=== PATIENT | female | born 1955 | race African-American/Black ===

== ENCOUNTER 2023-07-21 15:49 | Emergency (ER) | payer MEDICARE ==
--- NOTE | 2023-07-21 16:54 | ED ---
Dizziness HPI - General Source: patient, RN notes reviewed Mode of arrival: EMS Limitations: no limitations <Avelina Leyva - Last Filed: 07/21/23 16:53> <Charlie Zimmerman - Last Filed: 07/22/23 01:28> - General Chief Complaint: Syncope Stated Complaint: cardiac issues Time Seen by Provider: 07/21/23 16:10 - History of Present Illness Initial Comments: Lito notethis 68-year-old female presents to the emergency department via EMS for chief complaint of hypotension. Patient states that she was seen at urgent care this afternoon for refill of her medications and she was found to have a low blood pressure. Patient denies dizziness, lightheadedness, blurry vision or double vision. (Avelina Leyva) Dictation was produced using [employer] dictation software. please excuse any grammatical, word or spelling errors. Chief Complaint: 68-year-old female went to her primary care doctor for m edication refills presents to the ER for hypotension History of Present Illness: Patient 60-year-old female she has past medical history of coronary artery bypass grafting. She went to a clinic office today for inquiry of her home medications. States that felt in her usual state of health. She states that they did some vital signs after she had walked really quickly. She was found to have a blood pressure systolic measuring around 60. She was told to come to the emergency department. Patient states that she feels fine does not have any complaints. Denies any pain or nausea. No recent illness. Denies any lightheadedness. Patient states that she feels at baseline currently. The ROS documented in this emergency department record has been reviewed and confirmed by me. Those systems with pertinent positive or negative responses have been documented in the HPI. All other systems are other negative and/or noncontributory. (Charlie Zimmerman) - Related Data Allergies Allergy/AdvReac Type Severity Reaction Status Date / Time No Known Allergies Allergy Verified 07/21/23 16:46 Review of Systems ROS Other: All systems not noted in ROS Statement are negative. <Avelina Leyva - Last Filed: 07/21/23 16:53> ROS Other: All systems not noted in ROS Statement are negative. <Charlie Zimmerman - Last Filed: 07/22/23 01:28> ROS Statement: Those systems with pertinent positive or pertinent negative responses have been documented in the HPI. Past Medical History Past Medical History: Atrial Fibrillation, Chest Pain / Angina History of Any Multi-Drug Resistant Organisms: None Reported Past Surgical History: No Surgical Hx Reported Past Psychological History: No Psychological Hx Reported Smoking Status: Former smoker Past Alcohol Use History: None Reported Past Drug Use History: None Reported <Avelina Leyva - Last Filed: 07/21/23 16:53> General Exam Limitations: no limitations <Avelina Leyva - Last Filed: 07/21/23 16:53> <Charlie Zimmerman - Last Filed: 07/22/23 01:28> - General Exam Comments Initial Comments: Visual Physical Exam Vital signs reviewed General: Well-appearing, nontoxic, no acute distress. Head: Normocephalic, atraumatic Eyes: PERRLA, EOMI ENT: Airway patent Chest: Nonlabored breathing Skin: No visual rash, normal skin tone Neuro: Alert and oriented 3 Musculoskeletal: No gross abnormalities (Avelina Leyva) PHYSICAL EXAM: General Impression: Alert and oriented x3, not in acute distress HEENT: Normocephalic atraumatic, extra-ocular movements intact, pupils equal and reactive to light bilaterally, mucous membranes moist. Cardiovascular: Heart regular rate and rhythm Chest: Able to complete full sentences, no retractions, no tachypnea Abdomen: abdomen soft, non-tender, non-distended, no organomegaly Musculoskeletal: Pulses present and equal in all extremities, no peripheral edema Motor: no focal deficits noted Neurological: CN II-XII grossly intact, no focal motor or sensory deficits noted Skin: Intact with no visualized rashes Psych: Normal affect and mood (Charlie Zimmerman) Course Vital Signs 07/21/23 07/21/23 07/22/23 16:41 23:42 00:00 Temperature 98 F Pulse Rate 71 68 72 Pulse Rate [ Sitting] Pulse Rate [ Standing] Pulse Rate [ Supine] Respiratory 16 18 18 Rate Blood Pressure 148/86 112/89 112/89 Blood Pressure [Sitting] Blood Pressure [Standing] Blood Pressure [Supine] O2 Sat by Pulse 96 96 96 Oximetry 07/22/23 07/22/23 07/22/23 00:05 00:10 00:30 Temperature Pulse Rate 70 61 75 Pulse Rate [ Sitting] Pulse Rate [ Standing] Pulse Rate [ Supine] Respiratory 18 18 16 Rate Blood Pressure 121/99 121/99 113/57 Blood Pressure [Sitting] Blood Pressure [Standing] Blood Pressure [Supine] O2 Sat by Pulse 95 96 96 Oximetry 07/22/23 07/22/23 00:55 01:00 Temperature Pulse Rate 72 Pulse Rate [ 75 Sitting] Pulse Rate [ 78 Standing] Pulse Rate [ 68 Supine] Respiratory 18 Rate Blood Pressure 119/87 Blood Pressure 121/99 [Sitting] Blood Pressure 108/88 [Standing] Blood Pressure 112/89 [Supine] O2 Sat by Pulse 96 Oximetry EKG Findings - EKG Comments: EKG Findings:: My EKG interpretation: Ventricular rate 71, sinus rhythm,. 193, QRS 150, QTc 508. No LA prolongation, no ST or T-wave changes noted. <Charlie Zimmerman - Last Filed: 07/22/23 01:28> Medical Decision Making <Avelina Leyva - Last Filed: 07/21/23 16:53> - Lab Data Result diagrams: 07/21/23 16:47 07/21/23 16:47 <Charlie Zimmerman - Last Filed: 07/22/23 01:28> - Medical Decision Making I completed the quick note portion of this chart signed Avelina Leyva PA-C (Avelina Leyva) Was pt. sent in by a medical professional or institution (PAUL Ramachandran, PURCHASING COORDINATOR, urgent care, hospital, or snf...) When possible be specific @ -No Did you speak to anyone other than the patient for history (EMS, parent, family, police, friend...)? What history was obtained from this source @ -No Did you review nursing and triage notes (agree or disagree)? Why? @ -I reviewed and agree with nursing and triage notes Were old charts reviewed (outside hosp., previous admission, EMS record, old EK G, old radiological studies, urgent care reports/EKG's, snf records)? Report findings @ -No old charts were reviewed Differential Diagnosis (chest pain, altered mental status, abdominal pain women, abdominal pain men, vaginal bleeding, musculoskeletal, weakness, fever, dyspnea, syncope, headache, dizziness, GI bleed, back pain, seizure, CVA, palpatations, mental health)? @ -Differential Weakness: Hypoglycemia, shock, sepsis, hyponatremia, anemia, infection, WI, ETOH, adverse medicine reaction, overdose, stroke, this is not meant to be an all-inclusive list. EKG interpreted by me (3pts min.). @ -See above X-rays interpreted by me (1pt min.). @ -Chest x-ray shows heart failure CT interpreted by me (1pt min.). @ -None done U/S interpreted by me (1pt. min.). @ -None done What testing was considered but not performed or refused? (CT, X-rays, U/S, labs)? Why? @ -None What meds were considered but not given or refused? Why? @ -None Did you discuss the management of the patient with other professionals (professionals i.e. , PA, PURCHASING COORDINATOR, lab, RT, psych nurse, social media assistant, caregiver services home, teacher, electronic warfare officer, major case detective)? Give summary @ -No Was smoking cessation discussed for >3mins.? @ -No Was critical care preformed (if so, how long)? @ -No Were there social determinants of health that impacted care today? How? (Homelessness, low income, unemployed, alcoholism, drug addiction, transportation, low edu. Level, literacy, decrease access to med. care, senior living, rehab)? @ -No Was there de-escalation of care discussed even if they declined (Discuss DNR or withdrawal of care, Hospice)? DNR status @ -No What co-morbidities impacted this encounter? (DM, HTN, Smoking, COPD, CAD, Cancer, CVA, ARF, Chemo, Hep., AIDS, mental health diagnosis, sleep apnea, morbid obesity)? @ -None Was patient admitted / discharged? Hospital course, mention meds given and route, prescriptions, significant lab abnormalities, going to OR and other pertinent info. @ -60-year-old female presents emergency department after having had a low blood pressure at the urgent care clinic. Vital signs upon arrival are within acceptable limits. Initial blood pressure was 148/86. Blood pressure was trended throughout her ER stay and found to be normal. Patient had no complaints. States that sometimes she feels a little lightheaded when she walks too much. Laboratory evaluation is unremarkable. Patient observed in the emergency department for 9 hours and 36 minutes. Reevaluated at 1:30 AM found to be 7 condition. Patient offered observation admission however she preferred to be discharged. Patient advised follow-up with primary care doctor. Undiagnosed new problem with uncertain prognosis? @ -No Drug Therapy requiring intensive monitoring for toxicity (Heparin, Nitro, Insuli n, Cardizem)? @ -No Were any procedures done? @ -No Diagnosis/symptom? Acute, or Chronic, or Acute on Chronic? Uncomplicated (without systemic symptoms) or Complicated (systemic symptoms)? @ -Dizziness Side effects of treatment? @ -No Exacerbation, Progression, or Severe Exacerbation? @ -No Poses a threat to life or bodily function? How? (Chest pain, USA, WI, pneumonia, PE, COPD, DKA, ARF, appy, cholecystitis, CVA, Diverticulitis, Homicidal, Suicidal, threat to staff... and all critical care pts) @ -No (Charlie Zimmerman) - Lab Data Lab Results 07/21/23 07/21/23 07/21/23 Range/Units 16:45 16:47 16:47 WBC 5.0 (3.8-10.6) k/uL RBC 4.66 (3.80-5.40) m/uL Hgb 13.5 (11.4-16.0) gm/dL Hct 42.4 (34.0-46.0) % MCV 91.0 (80.0-100.0) fL MCH 29.0 (25.0-35.0) pg MCHC 31.8 (31.0-37.0) g/dL RDW 15.0 (11.5-15.5) % Plt Count 141 L (150-450) k/uL MPV 9.4 Neutrophils % 55 % Lymphocytes % 33 % Monocytes % 6 % Eosinophils % 3 % Basophils % 1 % Neutrophils # 2.7 (1.3-7.7) k/uL Lymphocytes # 1.7 (1.0-4.8) k/uL Monocytes # 0.3 (0-1.0) k/uL Eosinophils # 0.1 (0-0.7) k/uL Basophils # 0.1 (0-0.2) k/uL PT 12.8 H (10.0-12.5) sec INR 1.2 H (<1.2) APTT 24.1 (22.0-30.0) sec Sodium (137-145) mmol/L Potassium (3.5-5.1) mmol/L Chloride (98-107) mmol/L Carbon Dioxide (22-30) mmol/L Anion Gap mmol/L BUN (7-17) mg/dL Creatinine (0.52-1.04) mg/dL Est GFR (CKD-EPI)AfAm (>60 ml/min/1.73 sqM) Est GFR (CKD-EPI)NonAf (>60 ml/min/1.73 sqM) Glucose (74-99) mg/dL Calcium (8.4-10.2) mg/dL Magnesium 1.6 (1.6-2.3) mg/dL Total Bilirubin (0.2-1.3) mg/dL AST (14-36) U/L ALT (4-34) U/L Alkaline Phosphatase (38-126) U/L Troponin I (0.000-0.034) ng/mL Total Protein (6.3-8.2) g/dL Albumin (3.5-5.0) g/dL 07/21/23 07/21/23 Range/Units 16:47 16:47 WBC (3.8-10.6) k/uL RBC (3.80-5.40) m/uL Hgb (11.4-16.0) gm/dL Hct (34.0-46.0) % MCV (80.0-100.0) fL MCH (25.0-35.0) pg MCHC (31.0-37.0) g/dL RDW (11.5-15.5) % Plt Count (150-450) k/uL MPV Neutrophils % % Lymphocytes % % Monocytes % % Eosinophils % % Basophils % % Neutrophils # (1.3-7.7) k/uL Lymphocytes # (1.0-4.8) k/uL Monocytes # (0-1.0) k/uL Eosinophils # (0-0.7) k/uL Basophils # (0-0.2) k/uL PT (10.0-12.5) sec INR (<1.2) APTT (22.0-30.0) sec Sodium 142 (137-145) mmol/L Potassium 4.1 (3.5-5.1) mmol/L Chloride 113 H (98-107) mmol/L Carbon Dioxide 24 (22-30) mmol/L Anion Gap 5 mmol/L BUN 13 (7-17) mg/dL Creatinine 0.64 (0.52-1.04) mg/dL Est GFR (CKD-EPI)AfAm >90 (>60 ml/min/1.73 sqM) Est GFR (CKD-EPI)NonAf >90 (>60 ml/min/1.73 sqM) Glucose 118 H (74-99) mg/dL Calcium 9.1 (8.4-10.2) mg/dL Magnesium (1.6-2.3) mg/dL Total Bilirubin 1.6 H (0.2-1.3) mg/dL AST 30 (14-36) U/L ALT 17 (4-34) U/L Alkaline Phosphatase 78 (38-126) U/L Troponin I <0.012 (0.000-0.034) ng/mL Total Protein 7.4 (6.3-8.2) g/dL Albumin 4.3 (3.5-5.0) g/dL Disposition <Avelina Leyva - Last Filed: 07/21/23 16:53> Is patient prescribed a controlled substance at d/c from ED?: No Time of Disposition: 01:28 <Charlie Zimmerman - Last Filed: 07/22/23 01:28> Clinical Impression: Dizziness Disposition: HOME SELF-CARE Condition: Good Instructions (If sedation given, give patient instructions): Dizziness (ED) Referrals: Lorenza Christopher MD [Primary Care Provider] - 1-2 days
[2023-07-21 16:57] LABS: Basophils # (A) 0.1 k/uL (0-0.2); Basophils % (A) 1 %; Eosinophils # (A) 0.1 k/uL (0-0.7); Eosinophils % (A) 3 %; HCT 42.4 % (34.0-46.0); HGB 13.5 gm/dL (11.4-16.0); Lymphocytes # (A) 1.7 k/uL (1.0-4.8); Lymphocytes % (A) 33 %; MCHC 31.8 g/dL (31.0-37.0); Mean Platelet Volume 9.4; Monocytes # (A) 0.3 k/uL (0-1.0); Monocytes % (A) 6 %; Neutrophils # (A) 2.7 k/uL (1.3-7.7); Neutrophils % (A) 55 %; Platelet Count 141 k/uL (150-450); RBC 4.66 m/uL (3.80-5.40)
[2023-07-21 17:16] LABS: ALT 17 U/L (4-34); African American GFR (CKD) >90 (>60 ml/min/1.73 sqM); Albumin 4.3 g/dL (3.5-5.0); Anion Gap 5 mmol/L; Blood Urea Nitrogen 13 mg/dL (7-17); Calcium 9.1 mg/dL (8.4-10.2); Carbon Dioxide 24 mmol/L (22-30); Chloride 113 mmol/L (98-107); Glucose 118 mg/dL (74-99); INR 1.2 (<1.2); Non-African American GFR(CKD) >90 (>60 ml/min/1.73 sqM); Partial Thromboplastin Time 24.1 sec (22.0-30.0); Prothrombin Time 12.8 sec (10.0-12.5); Sodium 142 mmol/L (137-145); Total Bilirubin 1.6 mg/dL (0.2-1.3); Total Protein 7.4 g/dL (6.3-8.2)
[2023-07-21 17:36] LABS: AST 30 U/L (14-36); Alkaline Phosphatase 78 U/L (38-126); Potassium 4.1 mmol/L (3.5-5.1)
--- NOTE | 2023-07-21 19:42 | XR ---
EXAMINATION TYPE: XR chest 2V DATE OF EXAM: 07/21/2023 7:32 PM CLINICAL INDICATION:Female, 68 years old with history of syncope; [facility] COMPARISON: None TECHNIQUE: XR chest 2V Frontal and lateral views of the chest. FINDINGS: Lungs/Pleura: Hazy bibasilar airspace opacities are identified. No pleural effusion or pneumothorax. Pulmonary vascularity: Mild pulmonary vascular congestion. Heart/mediastinum: Cardiomediastinal silhouette is prominent in size. Atherosclerotic calcifications are seen in the aorta. Musculoskeletal: No acute osseous pathology. Midline sternotomy wires are noted. IMPRESSION: Cardiomegaly with mild pulmonary vascular congestion. Correlate with signs/symptoms of heart failure.
[2023-07-21] MEDS: SODIUM CHLORIDE 0.9% 1,000 ML IV STA (23:27)
[2023-07-22 01:21] VITALS: PULSE 72
[2023-07-22 02:24] VITALS: BP 113/65; RESP 16; TEMP 97.9
== END 2023-07-22 02:25 | disposition home or self-care (01) ==
LOC: EC 15:49
DX: R42 Dizziness and giddiness (principal); Z87.891 Personal history of nicotine dependence; Z95.1 Presence of aortocoronary bypass graft
CPT/HCPCS: 36415; 71046; 80053; 83735; 84484; 85025; 85610; 85730; 93005; 96360; 96361; 99284

== ENCOUNTER 2023-10-20 11:04 | Inpatient (IN) | payer MEDICARE ==
--- NOTE | 2023-10-20 11:29 | ED ---
SOB HPI - General Source: patient, EMS, RN notes reviewed Mode of arrival: EMS Limitations: no limitations <Taylor Goodson - Last Filed: 10/20/23 11:28> <Charlie Zimmerman - Last Filed: 10/20/23 12:47> - General Chief Complaint: Shortness of Breath Stated Complaint: NEYDA Time Seen by Provider: 10/20/23 11:28 - History of Present Illness Initial Comments: Quick note: 66-year-old female presented to the ER with a chief complaint of shortness of breath. Patient has a history of asthma. Patient does not normally wear oxygen at home. She states this morning she was having wheezing which brought her to the ER. Patient received breathing treatment and prednisone by EMS. Patient states all symptoms have since resolved. Denies any fevers, chills or chest pain. (Taylor Goodson) Dictation was produced using [employer] dictation software. please excuse any grammatical, word or spelling errors. Chief Complaint: 68-year-old female with shortness of breath History of Present Illness: Patient 60-year-old female presents to the emergency department for shortness of breath. Patient states she has a history of asthma. According to patient daughter called EMS for dyspnea. Patient was given breathing treatment with improvement of her symptoms. She does not wear home O2. Patient has a chest pain. Denies any swelling in her legs. Patient denies any cardiac comorbidities. The ROS documented in this emergency department record has been reviewed and confirmed by me. Those systems with pertinent positive or negative responses have been documented in the HPI. All other systems are other negative and/or noncontributory. (Charlie Zimmerman) - Related Data Allergies Allergy/AdvReac Type Severity Reaction Status Date / Time No Known Allergies Allergy Verified 10/20/23 11:16 Review of Systems ROS Other: All systems not noted in ROS Statement are negative. <Taylor Goodson - Last Filed: 10/20/23 11:28> ROS Other: All systems not noted in ROS Statement are negative. <Charlie Zimmerman - Last Filed: 10/20/23 12:47> ROS Statement: Those systems with pertinent positive or pertinent negative responses have been documented in the HPI. Past Medical History Past Medical History: Asthma History of Any Multi-Drug Resistant Organisms: None Reported Past Surgical History: No Surgical Hx Reported Past Psychological History: No Psychological Hx Reported Smoking Status: Former smoker Past Alcohol Use History: None Reported Past Drug Use History: None Reported <Taylor Goodson - Last Filed: 10/20/23 11:28> General Exam Limitations: no limitations <Taylor Goodson - Last Filed: 10/20/23 11:28> <Charlie Zimmerman - Last Filed: 10/20/23 12:47> - General Exam Comments Initial Comments: Visual Physical Exam Vital signs reviewed General: Well-appearing, nontoxic, no acute distress. Head: Normocephalic, atraumatic Eyes: PERRLA, EOMI ENT: Airway patent Chest: Nonlabored breathing Skin: No visual rash, normal skin tone Neuro: Alert and oriented 3 Musculoskeletal: No gross abnormalities (Taylor Goodson) PHYSICAL EXAM: General Impression: Alert and oriented x3, not in acute distress HEENT: Normocephalic atraumatic, extra-ocular movements intact, pupils equal and reactive to light bilaterally, mucous membranes moist. Cardiovascular: Heart regular rate and rhythm Chest: Able to complete full sentences, no retractions, no tachypnea, mild end expiratory wheezing Abdomen: abdomen soft, non-tender, non-distended, no organomegaly Musculoskeletal: Pulses present and equal in all extremities, no peripheral edema Motor: no focal deficits noted Neurological: CN II-XII grossly intact, no focal motor or sensory deficits noted Skin: Intact with no visualized rashes Psych: Normal affect and mood (Charlie Zimmerman) Course Vital Signs 10/20/23 11:13 Temperature 98.2 F Pulse Rate 75 Respiratory 22 Rate Blood Pressure 98/62 O2 Sat by Pulse 95 Oximetry Medical Decision Making <Taylor Goodson - Last Filed: 10/20/23 11:28> - Medical Decision Making I performed the quick note portion of this chart. Electronically signed by Taylor Goodson PA-C (Taylor Goodson) - Lab Data Lab Results 10/20/23 Range/Units 11:38 Influenza Type A (PCR) Not Detected (Not Detectd) Influenza Type B (PCR) Not Detected (Not Detectd) RSV (PCR) Not Detected (Not Detectd) SARS-CoV-2 (PCR) Not Detected (Not Detectd) Disposition <Taylor Goodson - Last Filed: 10/20/23 11:28> <Charlie Zimmerman - Last Filed: 10/20/23 12:47> Referrals: Emilee Chang, [facility] [Primary Care Provider] - 1-2 days
--- NOTE | 2023-10-20 12:07 | XR ---
EXAMINATION TYPE: XR chest 2V DATE OF EXAM: 10/20/2023 12:02 PM COMPARISON: None TECHNIQUE: XR chest 2V Frontal and lateral views of the chest. CLINICAL INDICATION:Female, 66 years old with history of wheezing; FINDINGS: Lungs/Pleura: There is no evidence of pleural effusion, focal consolidation, or pneumothorax. Diffus e interstitial prominence. Heart/mediastinum: Cardiomediastinal silhouette is enlarged. Atherosclero tic calcifications are seen in the aorta. Musculoskeletal: No acute osseous pathology. Midline sternotomy wires are noted. IMPRESSION: Cardiomegaly and diffuse interstitial prominence. Correlate with BNP for congestive heart failure.
[2023-10-20 13:31] LABS: Basophils % (A) 1 %; Eosinophils % (A) 1 %; HCT 40.5 % (34.0-46.0); HGB 13.2 gm/dL (11.4-16.0); Lymphocytes % (A) 21 %; MCH 28.3 pg (25.0-35.0); MCHC 32.7 g/dL (31.0-37.0); MCV 86.6 fL (80.0-100.0); Mean Platelet Volume 9.8; Monocytes # (A) 0.1 k/uL (0-1.0); Monocytes % (A) 3 %; Neutrophils # (A) 3.3 k/uL (1.3-7.7); Neutrophils % (A) 74 %; Platelet Count 132 k/uL (150-450); RBC 4.68 m/uL (3.80-5.40); WBC 4.5 k/uL (3.8-10.6)
[2023-10-20] MEDS: IPRATROPIUM-ALBUTEROL 3 ML NEB INHALATION STA (13:31)
[2023-10-20 13:43] LABS: African American GFR (CKD) >90 (>60 ml/min/1.73 sqM); Anion Gap 8 mmol/L; Blood Urea Nitrogen 14 mg/dL (7-17); Calcium 8.8 mg/dL (8.4-10.2); Carbon Dioxide 22 mmol/L (22-30); Chloride 115 mmol/L (98-107); Glucose 124 mg/dL (74-99); Non-African American GFR(CKD) >90 (>60 ml/min/1.73 sqM); Potassium 4.1 mmol/L (3.5-5.1); Sodium 145 mmol/L (137-145)
[2023-10-20 13:52] LABS: NT-Pro-B-Type Natriuretic Pept 5530 pg/mL
[2023-10-20] MEDS: FUROSEMIDE 40 MG TAB PO SCH (15:15)
[2023-10-21] MEDS: IPRATROPIUM-ALBUTEROL 3 ML NEB INHALATION PRN (08:48)
[2023-10-21] MEDS: ASPIRIN 81 MG PO SCH (09:13)
[2023-10-21] MEDS: ATORVASTATIN 40 MG TAB PO SCH (09:13)
--- NOTE | 2023-10-21 10:56 | P.CRDCN ---
History of Present Illness Consult date: 10/21/23 Reason for Consult (text): New onset CHF History of present illness: This is a 68-year-old female patient of Dr. Arnol Grover with past medical history of coronary artery disease status post bypass at [facility] 2 years ago, hyperlipidemia, asthma or COPD. We have been asked to evaluate the patient for new onset of CHF. Patient denies ever being diagnosed with heart failure in the past. She states that she was having trouble with her breathing and thought it was asthma. She denies having any chest pain. She denies lower extremity edema. No PND no orthopnea. Patient states that she has not been taking any of her medications for the past 4 to 5 months. She does have a history of smoking. Blood pressure 113/95, heart rate 60, pulse ox 93% on room air. Patient has been started on oral Lasix 40 mg every 12 hours. Patient was last seen in the office with Dr. Grover on 09/23/2023 and at that time plan was for Lexiscan and echocardiogram. EKG: Sinus rhythm with right bundle branch block Chest x-ray: Cardiomegaly with diffuse interstitial prominence Laboratory studies: Troponin negative x 1, proBNP 5530, sodium 145, potassium 4.1, BUN 14 creatinine 0.59. Influenza A, influenza B, COVID-19, RSV not detected. Home cardiac medications: Patient is not currently on any cardiac medications but from the last office note, patient was on aspirin 81 mg daily, Lipitor 20 mg daily, Nitrostat as needed, Toprol XL 25 mg daily Review Of Systems: At the time of my exam: CONSTITUTIONAL: Denies fever or chills. HEENT: Denies blurred vision, vision changes, or eye pain. Denies hemoptysis CARDIOVASCULAR: Denies chest pain. Denies orthopnea. Denies PND. Denies palpitations RESPIRATORY: Reports shortness of breath. GASTROINTESTINAL: Denies abdominal pain. Denies nausea or vomiting. HEMATOLOGIC: Denies bleeding disorders. GENITOURINARY: Denies any blood in urine. SKIN: Denies puritis. Denies rash. Physical examination: Gen: This is a 68-year-old black female in no acute distress VS: reviewed HEENT: Head is atraumatic, normocephalic. Pupils equal, round. Sclerae is anicteric. NECK: Supple. No JVD. LUNGS: Bilateral wheezing and crackles. No intercostal retractions. HEART: Regular rate and rhythm. No murmur. ABDOMEN: Soft No tenderness. EXTREMITIES: No pedal edema. No calf tenderness. NEUROLOGICAL: Patient is awake, alert and oriented x3. Assessment: Acute heart failure, EF is not known Known right bundle branch block History of coronary artery disease with previous CABG at [facility], one-vessel according to the patient Hyperlipidemia Remote history of tobacco use Asthma Plan: Start patient on aspirin 81 mg daily, Lipitor 40 mg daily Start patient on IV Lasix 40 mg every 12 hours, discontinue oral Lasix Start patient on DuoNeb treatments 4 times daily and every 4 hours as needed and and consult for pulmonary medicine Hold on beta-alex due to underlying respiratory issues Repeat troponins x 2 Monitor KAREEM, daily weights, electrolytes and renal function Obtain 2-D echocardiogram and Doppler study to assess cardiac structure and function Further recommendations to follow based upon clinical course Thank you kindly for this consultation. Nurse practitioner note has been reviewed, I agree with documented findings and plan of care. Patient was seen and examined. Past Medical History Past Medical History: Asthma History of Any Multi-Drug Resistant Organisms: None Reported Past Surgical History: No Surgical Hx Reported Past Psychological History: No Psychological Hx Reported Smoking Status: Former smoker Past Alcohol Use History: None Reported Past Drug Use History: None Reported Medications and Allergies Home Medications Medication Instructions Recorded Confirmed Type Albuterol Inhaler [Ventolin Hfa 2 puff INHALATION RT-QID PRN 10/20/23 10/20/23 History Inhaler] Allergies Allergy/AdvReac Type Severity Reaction Status Date / Time adhesive Allergy Rash/Hives Verified 10/20/23 15:39 Physical Exam Vitals: Vital Signs Temp Pulse Resp BP Pulse Ox 10/21/23 08:00 20 10/21/23 07:50 97.6 F 60 20 113/95 93 L 10/21/23 06:23 62 22 112/86 95 10/21/23 02:03 69 18 126/79 91 L 10/21/23 01:01 60 18 124/76 92 L 10/20/23 23:48 56 L 18 104/66 95 10/20/23 22:17 89 18 122/104 99 10/20/23 20:58 18 102/76 90 L 10/20/23 17:00 60 16 105/65 93 L 10/20/23 14:57 20 102/54 92 L 10/20/23 13:41 65 10/20/23 13:34 63 10/20/23 11:13 98.2 F 75 22 98/62 95 Results 10/20/23 13:02 10/20/23 13:02 Cardiac Enzymes 10/20/23 Range/Units 14:34 Troponin I <0.012 (0.000-0.034) ng/mL CBC 10/20/23 Range/Units 13:02 WBC 4.5 (3.8-10.6) k/uL RBC 4.68 (3.80-5.40) m/uL Hgb 13.2 (11.4-16.0) gm/dL Hct 40.5 (34.0-46.0) % Plt Count 132 L (150-450) k/uL Comprehensive Metabolic Panel 10/20/23 Range/Units 13:02 Sodium 145 (137-145) mmol/L Potassium 4.1 (3.5-5.1) mmol/L Chloride 115 H (98-107) mmol/L Carbon Dioxide 22 (22-30) mmol/L BUN 14 (7-17) mg/dL Creatinine 0.59 (0.52-1.04) mg/dL Glucose 124 H (74-99) mg/dL Calcium 8.8 (8.4-10.2) mg/dL Current Medications Generic Name Dose Route Start Last Admin Trade Name Freq PRN Reason Stop Dose Admin Furosemide 40 mg 10/20/23 14:30 10/21/23 08:04 Furosemide 40 Mg Tab PO 40 mg Q12HR KAREL Administration 10/20/23 13:02 10/20/23 13:02
[2023-10-21] MEDS ORDERED: guaiFENesin-DM 100-10MG/5ML 10 ML CUP PO PRN (11:05)
--- NOTE | 2023-10-21 11:10 | P.HPIM ---
History of Present Illness This is a pleasant 68 years old female who comes from home for shortness of breath for about 1 week. She has history of bypass surgery about 3 years ago. She has no chest pain. She is not on home oxygen. Her PCP prescribed her some prednisone with no much benefit She used to smoke and quit about 3 years ago. She denies any specific GI or urinary symptoms She walks little bit using a walker. No new weakness or lateralization. No numbness or dizziness or headache Currently she denies smoking alcohol or illicit drugs She is afebrile She is mildly tachypneic and saturating 93% on room air, saturation is better on 2 L She has unremarkable CBC, BMP Influenza A and type B, RSV, SARS (coronavirus) are and detected Troponin is negative less than 0.012 proBNP is 5530 EKG showing sinus rhythm at [address]-T changes but patient has a right bundle branch block Chest x-ray showing cardiomegaly with mild pulmonary vascular congestion but also with some evidence of COPD, I reviewed chest x-ray by myself. Patient currently placed on aspirin 81 mg Lipitor and IV Lasix 40 mg twice daily Review of Systems Review of systems CONSTITUTIONAL: No fever, no malaise, no fatigue. HEENT: No recent visual problems or hearing problems. Denied any sore throat. CARDIOVASCULAR: No orthopnea, PND, no palpitations, no syncope. PULMONARY: No s chest wall tenderness h, no hemoptysis. GASTROINTESTINAL: No diarrhea, no nausea, no vomiting, no abdominal pain. Normoactive bowel sounds. NEUROLOGICAL: No headaches, no weakness, no numbness. HEMATOLOGICAL: Denies any bleeding or petechiae. GENITOURINARY: Denies any burning micturition, frequency, or urgency. MUSCULOSKELETAL/RHEUMATOLOGICAL: Denies any joint pain, swelling, or any muscle pain. ENDOCRINE: Denies any polyuria or polydipsia. Past Medical History Past Medical History: Asthma History of Any Multi-Drug Resistant Organisms: None Reported Past Surgical History: No Surgical Hx Reported Past Psychological History: No Psychological Hx Reported Smoking Status: Former smoker Past Alcohol Use History: None Reported Past Drug Use History: None Reported Medications and Allergies Home Medications Medication Instructions Recorded Confirmed Type Albuterol Inhaler [Ventolin Hfa 2 puff INHALATION RT-QID PRN 10/20/23 10/20/23 History Inhaler] Allergies Allergy/AdvReac Type Severity Reaction Status Date / Time adhesive Allergy Rash/Hives Verified 10/20/23 15:39 Physical Exam Vitals: Vital Signs Temp Pulse Resp BP Pulse Ox 10/21/23 08:58 68 10/21/23 08:48 64 10/21/23 08:00 20 10/21/23 07:50 97.6 F 60 20 113/95 93 L 10/21/23 06:23 62 22 112/86 95 10/21/23 02:03 69 18 126/79 91 L 10/21/23 01:01 60 18 124/76 92 L 10/20/23 23:48 56 L 18 104/66 95 10/20/23 22:17 89 18 122/104 99 10/20/23 20:58 18 102/76 90 L 10/20/23 17:00 60 16 105/65 93 L 10/20/23 14:57 20 102/54 92 L 10/20/23 13:41 65 10/20/23 13:34 63 10/20/23 11:13 98.2 F 75 22 98/62 95 GENERAL: The patient is alert and oriented x3, not in any acute distress. Well developed, well nourished. HEENT: Pupils are round and equally reacting to light. EOMI. No scleral icterus. No conjunctival pallor. Normocephalic, atraumatic. No pharyngeal erythema. No thyromegaly. CARDIOVASCULAR: S1 and S2 present. No murmurs, rubs, or gallops. -PULMONARY: Chest is clear to auscultation, bilateral scattered wheezing , no crackles. ABDOMEN: Soft, nontender, nondistended, normoactive bowel sounds. No palpable organomegaly. MUSCULOSKELETAL: No joint swelling or deformity. EXTREMITIES: No cyanosis, clubbing, or pedal edema. NEUROLOGICAL: Gross neurological examination did not reveal any focal deficits. SKIN: No rashes. no petechiae. 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 Continue same treatment. Continue with symptomatic treatment. Resume home medication. Monitor labs and vitals. DVT and GI prophylaxis. Further recommendations as per clinical course of the patient DVT prophylaxis: Subcutaneous heparin GI Prophylaxis: Pepcid PT/OT: Pending Prognosis is guarded
[2023-10-21] MEDS: IPRATROPIUM-ALBUTEROL 3 ML NEB INHALATION SCH (11:57)
[2023-10-21] MEDS: SYMBICORT 160-4.5 MCG INHALER INHALATION SCH (11:57)
--- NOTE | 2023-10-21 13:32 | P.CNPUL ---
History of Present Illness Consult date: 10/21/23 Requesting physician: Quincy E Coleen Reason for consult: dyspnea, COPD, abnormal CXR/CT Chief complaint: Shortness of breath, cough, congestion History of present illness: This is a pleasant 68-year-old female patient with a known history of coronary disease and previous coronary artery bypass grafting, hyperlipidemia, hypertension, former smoker however quit approximately 3 years ago. She had not been taking her cardiac medications at home. She was recently following up at [facility] here in town. She was on Symbicort and Spiriva for her COPD. She presented here to the emergency room yesterday with complaints of increasing shortness of breath, wheezing, cough and congestion. White count 4.5. Hemoglobin 13.2. Platelets 132. Sodium 145. Potassium 4.1. Bicarb 22. BUN 14. Creatinine 0.59. Glucose 124. proBNP 5530. Troponins negative x 3. Viral screen negative. Chest x-ray reveals cardiomegaly with diffuse interstitial prominence. She is seen today in consultation in the emergency department. She is currently sitting up in a stretcher. Awake and alert in no acute distress. She is dyspneic with conversation. Dyspneic with minimal exertion. She is maintaining O2 saturations in the 90s on 2 L/min per nasal cannula. She has been afebrile. Hemodynamically stable. Review of Systems REVIEW OF SYSTEMS: CONSTITUTIONAL: Denies any recent significant weight loss or weight gain. EYES: Denies change in vision. EARS, NOSE, MOUTH, THROAT: Denies headaches, denies sore throat. CARDIOVASCULAR: Denies chest pain, palpitations or syncopal episodes. RESPIRATORY: Positive for shortness of breath, cough, congestion no hemoptysis. GASTROINTESTINAL: Denies change in appetite, denies abdominal pain GENITOURINARY: Denies hematuria, denies infections. MUSKULOSKELETAL: Denies pain, denies swelling. INTEGUMENTARY: Denies rash, denies eczema. NEUROLOGICAL: Denies recent memory loss, no recent seizure activity. PSYCHIATRIC: Denies anxiety, denies depression. HEMATOLOGIC/LYMPHATIC: Denies anemia, denies enlarged lymph nodes. Past Medical History Past Medical History: Asthma History of Any Multi-Drug Resistant Organisms: None Reported Past Surgical History: No Surgical Hx Reported Past Psychological History: No Psychological Hx Reported Smoking Status: Former smoker Past Alcohol Use History: None Reported Past Drug Use History: None Reported Medications and Allergies Home Medications Medication Instructions Recorded Confirmed Type Albuterol Inhaler [Ventolin Hfa 2 puff INHALATION RT-QID PRN 10/20/23 10/20/23 History Inhaler] Allergies Allergy/AdvReac Type Severity Reaction Status Date / Time adhesive Allergy Rash/Hives Verified 10/20/23 15:39 Physical Exam Vitals: Vital Signs Temp Pulse Resp BP Pulse Ox 10/21/23 12:11 68 10/21/23 12:05 64 20 112/69 95 10/21/23 11:58 76 10/21/23 11:00 79 18 10/21/23 09:11 75 18 108/80 96 10/21/23 08:58 68 10/21/23 08:48 64 10/21/23 08:00 20 10/21/23 07:50 97.6 F 60 20 113/95 93 L 10/21/23 06:23 62 22 112/86 95 10/21/23 02:03 69 18 126/79 91 L 10/21/23 01:01 60 18 124/76 92 L 10/20/23 23:48 56 L 18 104/66 95 10/20/23 22:17 89 18 122/104 99 10/20/23 20:58 18 102/76 90 L 10/20/23 17:00 60 16 105/65 93 L 10/20/23 14:57 20 102/54 92 L 10/20/23 13:41 65 10/20/23 13:34 63 GENERAL EXAM: Alert, does not 68-year-old female, on 2 L nasal cannula, fairly comfortable in no apparent distress. HEAD: Normocephalic. EYES: Normal reaction of pupils, equal size. NOSE: Clear with pink turbinates. THROAT: No erythema or exudates. NECK: No masses, no JVD. CHEST: No chest wall deformity. LUNGS: Equal air entry with crackles in the bilateral bases, expiratory wheeze, diminished. CVS: S1 and S2 normal with no audible murmur, regular rhythm. ABDOMEN: No hepatosplenomegaly, normal bowel sounds, no guarding or rigidity. SPINE: No scoliosis or deformity SKIN: No rashes CENTRAL NERVOUS SYSTEM: No focal deficits, tone is normal in all 4 extremities. EXTREMITIES: There is trace peripheral edema. No clubbing, no cyanosis. Peripheral pulses are intact. Results - Laboratory Findings CBC and BMP: 10/20/23 13:02 10/20/23 13:02 Abnormal lab findings: Abnormal Labs 10/20/23 10/20/23 13:02 13:02 Plt Count 132 L Chloride 115 H Glucose 124 H - Diagnostic Findings Chest x-ray: image reviewed Assessment and Plan Assessment: Acute hypoxemic respiratory failure secondary to a combination of acute systolic versus diastolic congestive heart failure and acute on chronic obstructive pulmonary disease exacerbations History of medication noncompliance over the past 4 to 5 months fluting medications of Lipitor, Entresto, Lasix, Aldactone Chronic obstructive pulmonary disease treated with Symbicort and Spiriva in the outpatient setting Former chronic tobacco dependence stating quit 3 years ago Coronary artery disease with previous coronary bypass grafting done at [facility] Hyperlipidemia Hypertension Plan: The patient was seen and evaluated Chest x-ray, labs and medications reviewed Initiated on DuoNeb inhalations, Symbicort Initiated on IV diuretics Heparin for DVT prophylaxis Echocardiogram pending Educated regarding importance of medication compliance We will continue to follow and make further recommendations based on her clinical status I have personally seen and examined the patient, performed the documentation and the assessment and plan as written. Number of minutes spent on the visit: 20.
[2023-10-21] MEDS: HEPARIN SODIUM,PORCINE 5,000 UNIT/ML 1 ML VIAL SQ SCH (20:12)
[2023-10-21] MEDS: FAMOTIDINE 20 MG/2 ML VIAL IV SCH (20:12)
[2023-10-21] MEDS: FUROSEMIDE 10 MG/ML 4 ML VIAL IV SCH (20:12)
[2023-10-22 06:55] LABS: Basophils # (A) 0.1 k/uL (0-0.2); Basophils % (A) 1 %; Eosinophils # (A) 0.1 k/uL (0-0.7); Eosinophils % (A) 1 %; HCT 45.2 % (34.0-46.0); HGB 13.8 gm/dL (11.4-16.0); Hypochromasia Moderate; Lymphocytes % (A) 33 %; MCH 27.1 pg (25.0-35.0); MCHC 30.6 g/dL (31.0-37.0); MCV 88.7 fL (80.0-100.0); Mean Platelet Volume 8.9; Monocytes # (A) 0.3 k/uL (0-1.0); Monocytes % (A) 5 %; Neutrophils # (A) 3.5 k/uL (1.3-7.7); Neutrophils % (A) 58 %; Platelet Count 174 k/uL (150-450); RBC 5.09 m/uL (3.80-5.40); RDW 14.9 % (11.5-15.5); WBC 6.1 k/uL (3.8-10.6)
[2023-10-22 07:19] LABS: African American GFR (CKD) >90 (>60 ml/min/1.73 sqM); Anion Gap 9 mmol/L; Blood Urea Nitrogen 20 mg/dL (7-17); Carbon Dioxide 26 mmol/L (22-30); Chloride 109 mmol/L (98-107); Glucose 96 mg/dL (74-99); Non-African American GFR(CKD) 81 (>60 ml/min/1.73 sqM); Sodium 144 mmol/L (137-145)
[2023-10-22 10:54] VITALS: BMI 28.5
--- NOTE | 2023-10-22 10:58 | CA ---
Transthoracic Echo Report Name: Ruba Iyer Age: 68 Gender: F : 1955 Exam Date: 10/22/2023 09:04 Exam Location: [place] [facility] Ht (in): 65 Wt (lb): 147 Ordering Physician: Angelina Meneses Attending/Referring Phys: [id number], Zaira Audit Tech Alyson Godwin RDCS Procedure CPT: Indications: LVF Cardiac Hx: CABG Technical Quality: Fair Contrast 1: Total Dose (mL): Contrast 2: Total Dose (mL): MEASUREMENTS (Male / Female) Normal Values 2D ECHO LV Diastolic Diameter PLAX 4.4 cm 4.2 - 5.9 / 3.9 - 5.3 cm LV Systolic Diameter PLAX 3.7 cm IVS Diastolic Thickness 1.2 cm 0.6 - 1.0 / 0.6 - 0.9 cm LVPW Diastolic Thickness 1.2 cm 0.6 - 1.0 / 0.6 - 0.9 cm LV Relative Wall Thickness 0.5 RV Internal Dim ED PLAX 1.7 cm LA Systolic Diameter LX 4.9 cm 3.0 - 4.0 / 2.7 - 3.8 cm LV Diastolic Volume MOD BP 73.9 cm??? 67 - 155 / 56 - 104 cm??? LV Systolic Volume MOD BP 56.5 cm??? / 19 - 49 cm??? LV Ejection Fraction MOD BP 23.5 % >= 55 % LV Cardiac Index MOD BP 801.0 cm???/min???m??? LV Diastolic Volume MOD 4C 64.4 cm??? LV Systolic Volume MOD 4C 35.6 cm??? LV Ejection Fraction MOD 4C 44.8 % LV Cardiac Index MOD 4C 1328.3 cm???/min???m??? LV Diastolic Length 4C 6.2 cm LV Systolic Length 4C 6.2 cm LV Diastolic Volume MOD 2C 77.0 cm??? LV Systolic Volume MOD 2C 70.7 cm??? LV Ejection Fraction MOD 2C 8.3 % LV Cardiac Index MOD 2C 293.9 cm???/min???m??? LV Diastolic Length 2C 6.8 cm LV Systolic Length 2C 7.1 cm LA Volume 117.4 cm??? 18 - 58 / 22 - 52 cm??? LA Volume Index 66.8 cm???/m??? 16 - 28 cm???/m??? M-MODE Aortic Root Diameter MM 3.0 cm LA Systolic Diameter MM 4.3 cm LA Ao Ratio MM 1.5 AV Cusp Separation MM 1.7 cm DOPPLER AV Peak Velocity 153.8 cm/s AV Peak Gradient 9.5 mmHg AV Mean Velocity 115.7 cm/s AV Mean Gradient 5.7 mmHg AV Velocity Time Integral 30.4 cm LVOT Peak Velocity 71.6 cm/s LVOT Peak Gradient 2.0 mmHg LVOT Velocity Time Integral 13.2 cm MV Area PHT 3.8 cm??? Mitral E Point Velocity 125.7 cm/s Mitral A Point Velocity 55.1 cm/s Mitral E to A Ratio 2.3 MV Deceleration Time 202.0 ms TR Peak Velocity 285.7 cm/s TR Peak Gradient 32.6 mmHg Right Ventricular Systolic Press 52.6 mmHg FINDINGS Left Ventricle Left ventricular ejection fraction is estimated at 30-35%. Mildly increased septal wall thickness. Mildly increased posterior wall thickness. Mildly increased left ventricular systolic volume. Moderately reduced global left ventricular systolic function.basal inferior wall is hypokinetic Right Ventricle Mild right ventricular dilatation. Moderate pulmonary hypertension. Right Atrium Moderate right atrial dilatation. Left Atrium Severely increased left atrial diameter. Severely increased left atrial volume. Mildly increased left atrial area. Mitral Valve Structurally normal mitral valve. Mild mitral annular calcification. Mild-to- moderate mitral regurgitation. Aortic Valve Trileaflet aortic valve. No aortic valve stenosis or regurgitation. Tricuspid Valve Structurally normal tricuspid valve. Mild tricuspid regurgitation. No tricuspid stenosis. Pulmonic Valve Structurally normal pulmonic valve. No pulmonic stenosis. Trace pulmonic regurgitation. Pericardium No pericardial or pleural effusion. Aorta Normal size aortic root and proximal ascending aorta. CONCLUSIONS Severe LV systolic dysfunction with an ejection fraction of 30-35% Biatrial enlargement Mild to moderate mitral regurgitation Mild tricuspid regurgitation Moderate pulmonary hypertension Basal inferior wall is hypokinetic Previewed by: Dr. Martinez Grover MD (Electronically Signed) Final Date: 22 October 2023 10:57
--- NOTE | 2023-10-22 13:01 | P.PN ---
Subjective Progress Note Date: 10/22/23 This is a pleasant 68-year-old female patient with a known history of coronary disease and previous coronary artery bypass grafting, hyperlipidemia, hypertension, former smoker however quit approximately 3 years ago. She had not been taking her cardiac medications at home. She was recently following up at [facility] here in [facility]. She was on Symbicort and Spiriva for her COPD. She presented here to the emergency room yesterday with complaints of increasing shortness of breath, wheezing, cough and congestion. White count 4.5. Hemoglobin 13.2. Platelets 132. Sodium 145. Potassium 4.1. Bicarb 22. BUN 14. Creatinine 0.59. Glucose 124. proBNP 5530. Troponins negative x 3. Viral screen negative. Chest x-ray reveals cardiomegaly with diffuse interstitial prominence. She is seen today in consultation in the emergency department. She is currently sitting up in a stretcher. Awake and alert in no acute distress. She is dyspneic with conversation. Dyspneic with m inimal exertion. She is maintaining O2 saturations in the 90s on 2 L/min per nasal cannula. She has been afebrile. Hemodynamically stable. The patient is seen today October 22, 2023 in follow-up on the selective care unit. She is currently sitting up in bed. Awake and alert in no acute distr ess. She is feeling better today compared to yesterday. She is maintaining good O2 saturations in the 90s on 2 L/min per nasal cannula. She is continued on DuoNeb and elations, Symbicort. Her procalcitonin was negative at 0.07. White count 6.1. Hemoglobin 13.8. Platelets 174. Sodium 144. Potassium 4.0. Bicarb 26. BUN 20. Creatinine 0.76. She remains on IV diuretics. Heparin for DVT prophylaxis. Currently in a -1.1 L balance. Echocardiogram reveals severely impaired left ventricular systolic function with ejection fraction of 30 to 35%. Moderate pulmonary hypertension. Objective - Vital Signs Vital signs: Vital Signs Temp 97.3 F L 10/22/23 11:45 Pulse 82 10/22/23 12:47 Resp 20 10/22/23 11:45 BP 100/64 10/22/23 11:45 Pulse Ox 98 10/22/23 11:45 FiO2 Intake & Output 10/21/23 10/22/2324 18:59 06:59 18:59 Intake Total 550 Output Total 1500 150 250 Balance -1500 400 -250 Weight 66.678 kg 77.8 kg 77.8 kg Intake: IV 10 Invasive Line 1 10 Oral 540 Output: Urine 1500 150 250 Other: Voiding Method Bedside Commode # Voids 5 - Exam GENERAL EXAM: Alert, pleasant 68-year-old female, on 2 L nasal cannula, comfortable in no apparent distress. HEAD: Normocephalic. EYES: Normal reaction of pupils, equal size. NOSE: Clear with pink turbinates. THROAT: No erythema or exudates. NECK: No masses, no JVD. CHEST: No chest wall deformity. LUNGS: Equal air entry with crackles in the bilateral bases, expiratory wheeze, diminished. CVS: S1 and S2 normal with no audible murmur, regular rhythm. ABDOMEN: No hepatosplenomegaly, normal bowel sounds, no guarding or rigidity. SPINE: No scoliosis or deformity SKIN: No rashes CENTRAL NERVOUS SYSTEM: No focal deficits, tone is normal in all 4 extremities. EXTREMITIES: There is trace peripheral edema. No clubbing, no cyanosis. Peripheral pulses are intact. - Labs CBC & Chem 7: 10/22/23 06:17 10/22/23 06:17 Labs: Abnormal Lab Results - Last 24 Hours (Table) 10/22/23 10/22/23 Range/Units 06:17 06:17 MCHC 30.6 L (31.0-37.0) g/dL Chloride 109 H (98-107) mmol/L BUN 20 H (7-17) mg/dL Assessment and Plan Assessment: Acute hypoxemic respiratory failure secondary to a combination of acute systolic congestive heart failure and acute on chronic obstructive pulmonary disease exacerbations. Procalcitonin negative at 0.07. Echocardiogram reveals severely impaired left ventricular systolic function with ejection fraction 30 to 35%. Moderate pulmonary hypertension History of medication noncompliance over the past 4 to 5 months including medications of Lipitor, Entresto, Lasix, Aldactone Chronic obstructive pulmonary disease treated with Symbicort and Spiriva in the outpatient setting Former chronic tobacco dependence stating quit 3 years ago Coronary artery disease with previous coronary bypass grafting done at [facility] Hyperlipidemia Hypertension Plan: The patient was seen and evaluated Echocardiogram, labs and medications reviewed Continue on IV diuretics Titrate down the FiO2 as tolerated We will continue to follow I have personally seen and examined the patient, performed the documentation and the assessment and plan as written. Number of minutes spent on the visit: 10.
--- NOTE | 2023-10-22 13:43 | P.PN ---
Subjective Progress Note Date: 10/22/23 Reason for Consult (text): New onset CHF History of present illness: This is a 68-year-old female patient of Dr. Arnol Grover with past medical history of coronary artery disease status post bypass at [facility] 2 years ago, hyperlipidemia, asthma or COPD. We have been asked to evaluate the patient for new onset of CHF. Patient denies ever being diagnosed with heart failure in the past. She states that she was having trouble with her breathing and thought it was asthma. She denies having any chest pain. She denies lower extremity edema. No PND no orthopnea. Patient states that she has not been taking any of her medications for the past 4 to 5 months. She does have a history of smoking. Blood pressure 113/95, heart rate 60, pulse ox 93% on room air. Patient has been started on oral Lasix 40 mg every 12 hours. Patient was last seen in the office with Dr. Grover on 09/23/2023 and at that time plan was for Lexiscan and echocardiogram. EKG: Sinus rhythm with right bundle branch block Chest x-ray: Cardiomegaly with diffuse interstitial prominence Laboratory studies: Troponin negative x 1, proBNP 5530, sodium 145, potassium 4. 1, BUN 14 creatinine 0.59. Influenza A, influenza B, COVID-19, RSV not detected. Home cardiac medications: Patient is not currently on any cardiac medications but from the last office note, patient was on aspirin 81 mg daily, Lipitor 20 mg daily, Nitrostat as needed, Toprol XL 25 mg daily 10/21 Patient is seen today in follow-up on the cardiac stepdown unit. Blood pressure 100/64, heart rate 64, pulse ox 98% on 2 L nasal cannula. Echocardiogram reveals EF of 30 to 35%, biatrial enlargement, mild to moderate mitral regurgitation, mild tricuspid regurgitation, moderate pulmonary hypertension. Hemoglobin 13.8. Creatinine 0.76. TSH 1.72. Physical examination: Gen: This is a 68-year-old black female in no acute distress VS: reviewed HEENT: Head is atraumatic, normocephalic. Pupils equal, round. Sclerae is anicteric. NECK: Supple. No JVD. LUNGS: Bilateral wheezing and crackles. No intercostal retractions. HEART: Regular rate and rhythm. No murmur. ABDOMEN: Soft No tenderness. EXTREMITIES: No pedal edema. No calf tenderness. NEUROLOGICAL: Patient is awake, alert and oriented x3. Assessment: Acute systolic heart failure Severe cardiomyopathy with EF of 30 to 35% Known right bundle branch block History of coronary artery disease with previous CABG at [facility], on e-vessel according to the patient Hyperlipidemia Remote history of tobacco use Asthma Plan: Continue patient on aspirin 81 mg daily, Lipitor 40 mg daily Start patient on IV Lasix 40 mg every 12 hours for another 24 hours Hold on beta-alex due to underlying respiratory issues Monitor KAREEM, daily weights, electrolytes and renal function Further recommendations to follow based upon clinical course Nurse practitioner note has been reviewed, I agree with documented findings and plan of care. Patient was seen and examined. Objective - Vital Signs Vital signs: Vital Signs Temp 97.9 F 10/22/23 04:00 Pulse 63 10/22/23 08:56 Resp 18 10/22/23 04:23 BP 127/68 10/22/23 04:00 Pulse Ox 94 L 10/22/23 08:56 FiO2 Intake & Output 10/21/23 10/22/23 10/22/23 18:59 06:59 18:59 Intake Total 550 Output Total 1500 150 250 Balance -1500 400 -250 Weight 66.678 kg 77.8 kg Intake: IV 10 Invasive Line 1 10 Oral 540 Output: Urine 1500 150 250 Other: Voiding Method Bedside Commode # Voids 5 - Labs CBC & Chem 7: 10/22/23 06:17 10/22/23 06:17 Labs: Abnormal Lab Results - Last 24 Hours (Table) 10/22/23 10/22/23 Range/Units 06:17 06:17 MCHC 30.6 L (31.0-37.0) g/dL Chloride 109 H (98-107) mmol/L BUN 20 H (7-17) mg/dL
--- NOTE | 2023-10-22 14:47 | P.PN ---
Subjective Progress Note Date: 10/22/23 68 years old female who comes from home for shortness of breath for about 1 week. She has history of bypass surgery about 3 years ago. She has no chest pain. She is not on home oxygen. Her PCP prescribed her some prednisone with no much benefit She used to smoke and quit about 3 years ago. She denies any specific GI or urinary symptoms She walks little bit using a walker. No new weakness or lateralization. No numbness or dizziness or headache Currently she denies smoking alcohol or illicit drugs She is afebrile She is mildly tachypneic and saturating 93% on room air, saturation is better on 2 L She has unremarkable CBC, BMP Influenza A and type B, RSV, SARS (coronavirus) are and detected Troponin is negative less than 0.012 proBNP is 5530 EKG showing sinus rhythm at [address]-T changes but patient has a right bundle branch block Chest x-ray showing cardiomegaly with mild pulmonary vascular congestion but also with some evidence of COPD, I reviewed chest x-ray by myself. Patient currently placed on aspirin 81 mg Lipitor and IV Lasix 40 mg twice daily Objective - Vital Signs Vital signs: Vital Signs Temp 98.1 F 10/22/23 08:00 Pulse 64 10/22/23 09:07 Resp 20 10/22/23 08:00 BP 135/69 10/22/23 08:00 Pulse Ox 94 L 10/22/23 08:56 FiO2 Intake & Output 10/21/23 10/22/23 10/22/23 18:59 06:59 18:59 Intake Total 550 Output Total 1500 150 250 Balance -1500 400 -250 Weight 66.678 kg 77.8 kg Intake: IV 10 Invasive Line 1 10 Oral 540 Output: Urine 1500 150 250 Other: Voiding Method Bedside Commode # Voids 5 - Exam GENERAL: The patient is alert and oriented x3, not in any acute distress. Well developed, well nourished. HEENT: Pupils are round and equally reacting to light. EOMI. No scleral icterus. No conjunctival pallor. Normocephalic, atraumatic. No pharyngeal erythema. No thyromegaly. CARDIOVASCULAR: S1 and S2 present. No murmurs, rubs, or gallops. -PULMONARY: Chest is clear to auscultation, bilateral scattered wheezing , no crackles. ABDOMEN: Soft, nontender, nondistended, normoactive bowel sounds. No palpable organomegaly. MUSCULOSKELETAL: No joint swelling or deformity. EXTREMITIES: No cyanosis, clubbing, or pedal edema. NEUROLOGICAL: Gross neurological examination did not reveal any focal deficits. SKIN: No rashes. no petechiae. - Labs CBC & Chem 7: 10/22/23 06:17 10/22/23 06:17 Labs: Abnormal Lab Results - Last 24 Hours (Table) 10/22/23 10/22/23 Range/Units 06:17 06:17 MCHC 30.6 L (31.0-37.0) g/dL Chloride 109 H (98-107) mmol/L BUN 20 H (7-17) mg/dL Assessment and Plan Assessment: Acute shortness of breath suspicious for acute CHF per cognos tm1 developer Possible acute COPD exacerbation, new onset Ex smoker quit about 3 years ago History of asthma Plan: Front Office Help evaluated the patient Patient currently on aspirin, Lipitor and IV Lasix 40 mg twice daily Acute COPD is suspected, therefore we will consult pulmonary service Patient also is not on home oxygen currently on 2 L continue as needed Continue bronchodilator as needed Start Symbicort follow-up echocardiogram Check TSH Labs and medication were reviewed.. Continue same treatment. Continue with symptomatic treatment. Resume home medication. Monitor labs and vitals. DVT and GI prophylaxis. Further recommendations as per clinical course of the patient DVT prophylaxis: Subcutaneous heparin GI Prophylaxis: Pepcid PT/OT: Pending Prognosis is guarded
[2023-10-23 07:52] LABS: Basophils # (A) 0.1 k/uL (0-0.2); Basophils % (A) 1 %; Eosinophils # (A) 0.2 k/uL (0-0.7); Eosinophils % (A) 3 %; HCT 48.1 % (34.0-46.0); HGB 14.9 gm/dL (11.4-16.0); Hypochromasia Moderate; Lymphocytes # (A) 1.7 k/uL (1.0-4.8); Lymphocytes % (A) 29 %; MCH 27.2 pg (25.0-35.0); MCHC 30.9 g/dL (31.0-37.0); Mean Platelet Volume 8.9; Monocytes # (A) 0.4 k/uL (0-1.0); Monocytes % (A) 7 %; Neutrophils # (A) 3.5 k/uL (1.3-7.7); Neutrophils % (A) 58 %; Platelet Count 181 k/uL (150-450); RBC 5.47 m/uL (3.80-5.40); RDW 14.6 % (11.5-15.5)
[2023-10-23 08:11] LABS: African American GFR (CKD) 79 (>60 ml/min/1.73 sqM); Anion Gap 8 mmol/L; Blood Urea Nitrogen 25 mg/dL (7-17); Calcium 9.4 mg/dL (8.4-10.2); Carbon Dioxide 28 mmol/L (22-30); Chloride 104 mmol/L (98-107); Glucose 101 mg/dL (74-99); Non-African American GFR(CKD) 69 (>60 ml/min/1.73 sqM); Potassium 3.9 mmol/L (3.5-5.1); Sodium 140 mmol/L (137-145)
--- NOTE | 2023-10-23 09:03 | P.PN ---
Subjective Progress Note Date: 10/23/23 The patient was seen and evaluated this morning. She still experiencing shortness of breath with exertion but no pain in the chest. She still congested. The ejection fraction on the echo came into between 30 to 35%. With that being said and going to start the patient on the cardiomyopathy medications. The physical examination is remarkable for stable vital signs with regular rate and rhythm and soft systolic murmur and bilateral expiratory wheezing and also bilateral lower extremities edema Assessment CAD status post CABG with unknown details Severe cardiomyopathy Heart failure exacerbation with reduced ejection fraction Mitral regurgitation COPD exacerbation Multiple comorbid conditions Plan Continue the current medical regimen Continue to hold beta-alex in the light of wheezing Add Entresto and Jardiance and Aldactone Consider rule out severe CAD by performing a heart catheterization down the line Follow-up with the patient Objective - Vital Signs Vital signs: Vital Signs Temp 98 F 10/23/23 08:50 Pulse 79 10/23/23 08:50 Resp 21 10/23/23 08:50 BP 119/58 10/23/23 08:50 Pulse Ox 91 L 10/23/23 08:50 FiO2 Intake & Output 10/22/23 10/23/23 10/23/23 18:59 06:59 18:59 Intake Total 342 20 Output Total 1250 1700 Balance -908 -1680 Weight 77.8 kg 76.8 kg Intake: IV 20 Invasive Line 1 20 Oral 342 Output: Urine 1250 1700 Other: Voiding Method Bedside Commode - Labs CBC & Chem 7: 10/23/23 07:09 10/23/23 07:09 Labs: Abnormal Lab Results - Last 24 Hours (Table) 10/23/23 10/23/23 Range/Units 07:09 07:09 RBC 5.47 H (3.80-5.40) m/uL Hct 48.1 H (34.0-46.0) % MCHC 30.9 L (31.0-37.0) g/dL BUN 25 H (7-17) mg/dL Glucose 101 H (74-99) mg/dL
--- NOTE | 2023-10-23 12:12 | P.PN ---
Subjective Progress Note Date: 10/23/23 Principal diagnosis: Acute hypoxemic respiratory failure secondary to a combination of acute systolic congestive heart failure and acute on chronic obstructive pulmonary disease ex acerbations. This is a pleasant 68-year-old female patient with a known history of coronary disease and previous coronary artery bypass grafting, hyperlipidemia, hypertension, former smoker however quit approximately 3 years ago. She had not been taking her cardiac medications at home. She was recently following up at [facility] here in town. She was on Symbicort and Spiriva for her COPD. She presented here to the emergency room yesterday with complaints of increasing shortness of breath, wheezing, cough and congestion. White count 4.5. Hemoglobin 13.2. Platelets 132. Sodium 145. Potassium 4.1. Bicarb 22. BUN 14. Creatinine 0.59. Glucose 124. proBNP 5530. Troponins negative x 3. Viral screen negative. Chest x-ray reveals cardiomegaly with diffuse interstitial prominence. She is seen today in consultation in the emergency department. She is currently sitting up in a stretcher. Awake and alert in no acute distress. She is dyspneic with conversation. Dyspneic with minimal exertion. She is maintaining O2 saturations in the 90s on 2 L/min per n kimberli cannula. She has been afebrile. Hemodynamically stable. The patient is seen today October 22, 2023 in follow-up on the selective care unit. She is currently sitting up in bed. Awake and alert in no acute distress. She is feeling better today compared to yesterday. She is maintaining good O2 saturations in the 90s on 2 L/min per nasal cannula. She is continued on DuoNeb and elations, Symbicort. Her procalcitonin was negative at 0.07. White count 6.1. Hemoglobin 13.8. Platelets 174. Sodium 144. Potassium 4.0. Bicarb 26. BUN 20. Creatinine 0.76. She remains on IV diuretics. Heparin for DVT prophylaxis. Currently in a -1.1 L balance. Echocardiogram reveals severely impaired left ventricular systolic function with ejection fraction of 30 to 35%. Moderate pulmonary hypertension. Patient was evaluated today on 10/23/2023, feeling better, breathing easier, less cough less wheezing less shortness of breath. Significant improvement since admission. Patient remains on diuretics and she remains on bronchodilators for her CHF and COPD. Her echocardiogram did reveal evidence of impaired left ventricular function ejection fraction of 30 to 35% and she does have moderate pulmonary hypertension WBC count today is 6 hemoglobin 14.9 basic metabolic profile is normal renal profile is normal Objective - Vital Signs Vital signs: Vital Signs Temp 98 F 10/23/23 08:50 Pulse 72 10/23/23 11:27 Resp 21 10/23/23 08:50 BP 119/58 10/23/23 08:50 Pulse Ox 91 L 10/23/23 08:50 FiO2 Intake & Output 10/22/23 10/23/23 10/23/23 18:59 06:59 18:59 Intake Total 342 20 10 Output Total 1250 1700 Balance -908 -1680 10 Weight 77.8 kg 76.8 kg Intake: IV 20 10 Invasive Line 1 20 10 Oral 342 Output: Urine 1250 1700 Other: Voiding Method Bedside Commode Bedside Commode - Exam GENERAL EXAM: Alert, pleasant 68-year-old female, on 2 L nasal cannula, comfortable in no apparent distress. HEAD: Normocephalic. EYES: Normal reaction of pupils, equal size. NOSE: Clear with pink turbinates. THROAT: No erythema or exudates. NECK: No masses, no JVD. CHEST: No chest wall deformity. LUNGS: Equal air entry with crackles in the bilateral bases, expiratory wheeze, diminished. CVS: S1 and S2 normal with no audible murmur, regular rhythm. ABDOMEN: No hepatosplenomegaly, normal bowel sounds, no guarding or rigidity. SKIN: No rashes CENTRAL NERVOUS SYSTEM: Alert oriented x 3 no gross focal deficit EXTREMITIES: No clubbing trace of edema no cyanosis - Labs CBC & Chem 7: 10/23/23 07:09 10/23/23 07:09 Labs: Abnormal Lab Results - Last 24 Hours (Table) 10/23/23 10/23/23 Range/Units 07:09 07:09 RBC 5.47 H (3.80-5.40) m/uL Hct 48.1 H (34.0-46.0) % MCHC 30.9 L (31.0-37.0) g/dL BUN 25 H (7-17) mg/dL Glucose 101 H (74-99) mg/dL Assessment and Plan Assessment: Impression: Acute hypoxemic respiratory failure secondary to a combination of acute systolic congestive heart failure and acute on chronic obstructive pulmonary disease exacerbations. Procalcitonin negative at 0.07. Echocardiogram reveals severely impaired left ventricular systolic function with ejection fraction 30 to 35%. Moderate pulmonary hypertension History of medication noncompliance Chronic obstructive pulmonary disease treated with Symbicort and Spiriva in the outpatient setting Former chronic tobacco dependence stating quit 3 years ago Coronary artery disease with previous coronary bypass grafting done at [facility] Hyperlipidemia Hypertension Recommendation: Continue oxygen and titrate accordingly Continue bronchodilators and steroids Continue diuretics Continue to monitor daily electrolytes and renal profile Will continue to follow. Time with Patient: Less than 30
--- NOTE | 2023-10-23 13:01 | P.PN ---
Subjective Progress Note Date: 10/23/23 68 years old female who comes from home for shortness of breath for about 1 week. She has history of bypass surgery about 3 years ago. She has no chest pain. She is not on home oxygen. Her PCP prescribed her some prednisone with no much benefit She used to smoke and quit about 3 years ago. She denies any specific GI or urinary symptoms She walks little bit using a walker. No new weakness or lateralization. No numbness or dizziness or headache Currently she denies smoking alcohol or illicit drugs She is afebrile She is mildly tachypneic and saturating 93% on room air, saturation is better on 2 L She has unremarkable CBC, BMP Influenza A and type B, RSV, SARS (coronavirus) are and detected Troponin is negative less than 0.012 proBNP is 5530 EKG showing sinus rhythm at [address]-T changes but patient has a right bundle branch block Chest x-ray showing cardiomegaly with mild pulmonary vascular congestion but also with some evidence of COPD, I reviewed chest x-ray by myself. Patient currently placed on aspirin 81 mg Lipitor and IV Lasix 40 mg twice daily 10/23/2023 Patient is seen and evaluated in room at bedside; reports marked improvement in breathing Vital signs reviewed and stable with temperature of 98, pulse 60, respirations 17 and blood pressure 115/75 with O2 saturation 94% on 2 L Blood work is reviewed with WBCs of 6.0, hemoglobin of 14.9 and platelet count of 181, sodium 140, potassium 3.9, BUN/creatinine of 25/0.87, TSH within normal limits at 61.720 Echocardiogram is completed and reveals severe LV systolic dysfunction with EF of 30 to 35%; patient remains on Lasix 40 mg twice daily; cardiology on board and recommending cardiac catheterization down the line once patient is stable -Medications are being adjusted and patient cardiology recommending to start patient on Entresto, Jardiance and Aldactone Remains on Symbicort and DuoNeb nebulizer treatments; no changes per pulmonary Objective - Vital Signs Vital signs: Vital Signs Temp 98 F 10/23/23 08:50 Pulse 79 10/23/23 08:50 Resp 21 10/23/23 08:50 BP 119/58 10/23/23 08:50 Pulse Ox 91 L 10/23/23 08:50 FiO2 Intake & Output 09/10/23/23 10/23/23 18:59 06:59 18:59 Intake Total 342 20 10 Output Total 1250 1700 Balance -908 -1680 10 Weight 77.8 kg 76.8 kg Intake: IV 20 10 Invasive Line 1 20 10 Oral 342 Output: Urine 1250 1700 Other: Voiding Method Bedside Commode - Exam GENERAL: The patient is alert and oriented x3, not in any acute distress. Well developed, well nourished. HEENT: Pupils are round and equally reacting to light. EOMI. No scleral icterus. No conjunctival pallor. Normocephalic, atraumatic. No pharyngeal erythema. No thyromegaly. CARDIOVASCULAR: S1 and S2 present. No murmurs, rubs, or gallops. -PULMONARY: Chest is clear to auscultation, bilateral scattered wheezing , no crackles. ABDOMEN: Soft, nontender, nondistended, normoactive bowel sounds. No palpable organomegaly. MUSCULOSKELETAL: No joint swelling or deformity. EXTREMITIES: No cyanosis, clubbing, or pedal edema. NEUROLOGICAL: Gross neurological examination did not reveal any focal deficits. SKIN: No rashes. no petechiae. - Labs CBC & Chem 7: 10/23/23 07:09 10/23/23 07:09 Labs: Abnormal Lab Results - Last 24 Hours (Table) 10/23/23 10/23/23 Range/Units 07:09 07:09 RBC 5.47 H (3.80-5.40) m/uL Hct 48.1 H (34.0-46.0) % MCHC 30.9 L (31.0-37.0) g/dL BUN 25 H (7-17) mg/dL Glucose 101 H (74-99) mg/dL Assessment and Plan Assessment: Acute shortness of breath suspicious for acute CHF per software quality assurance specialist Possible acute COPD exacerbation, new onset Ex smoker quit about 3 years ago History of asthma Plan: Flour Tester evaluated the patient Patient currently on aspirin, Lipitor and IV Lasix 40 mg twice daily Acute COPD is suspected, therefore we will consult pulmonary service Patient also is not on home oxygen currently on 2 L continue as needed Continue bronchodilator as needed Start Symbicort follow-up echocardiogram Check TSH Labs and medication were reviewed.. Continue same treatment. Continue with symptomatic treatment. Resume home medication. Monitor labs and vitals. DVT and GI prophylaxis. Further recommendations as per clinical course of the patient DVT prophylaxis: Subcutaneous heparin GI Prophylaxis: Pepcid PT/OT: Pending Prognosis is guarded
[2023-10-23] MEDS: HYDROCORTISONE 1% OINT 28.35 GM TUBE TOPICAL PRN (16:19)
[2023-10-23] MEDS: SACUBITRIL/VALSARTAN 24 MG-26 MG TABLET PO SCH (21:24)
[2023-10-23] MEDS: ACETAMINOPHEN TAB 325 MG TAB PO PRN (23:43)
[2023-10-24] MEDS: DAPAGLIFLOZIN PROPANEDIOL 10 MG TABLET PO SCH (08:18)
[2023-10-24] MEDS: SPIRONOLACTONE 25 MG TAB PO SCH (08:18)
--- NOTE | 2023-10-24 08:32 | P.PN ---
Subjective Progress Note Date: 10/24/23 The patient was seen and evaluated this morning. She still experiencing shortness of breath with exertion but no pain in the chest. She still congested. The ejection fraction on the echo came into between 30 to 35%. With that being said and going to start the patient on the cardiomyopathy medications. The physical examination is remarkable for stable vital signs with regular rate and rhythm and soft systolic murmur and bilateral expiratory wheezing and also bilateral lower extremities edema October 24, 2023 The patient was seen and evaluated this morning. The shortness of breath is better. She still coughing and she still have some congestion. The wheezing has improved. No pain in the chest. At this point we can restart the patient back on small dose of beta-alex since she is not bradycardic and throwing PVCs. The examination is remarkable for diminished breathing sounds bilaterally with regular rate and rhythm and soft systolic murmur and no edema was noted in the lower extremities Assessment CAD status post CABG with unknown details Severe cardiomyopathy Heart failure exacerbation with reduced ejection fraction Mitral regurgitation COPD exacerbation Multiple comorbid conditions Plan Continue the current medical regimen Restart the patient on small dose of beta-alex Continue the medications for cardiomyopathy and currently she is on maximized medical treatment Consider ruling out severe CAD by performing coronary angiogram once her lung status improves Follow-up with the patient Objective - Vital Signs Vital signs: Vital Signs Temp 97.5 F L 10/24/23 08:15 Pulse 92 10/24/23 08:15 Resp 19 10/24/23 08:15 BP 115/66 10/24/23 08:15 Pulse Ox 91 L 10/24/23 08:15 FiO2 Intake & Output 10/23/23 10/24/23 10/24/23 18:59 06:59 18:59 Intake Total 1580 540 Output Total 950 800 Balance 630 -260 Weight 76.3 kg Intake: IV 20 20 Invasive Line 1 20 20 Oral 1560 520 Output: Urine 950 800 Other: Voiding Method Bedside Commode Bedside Commode # Bowel Movements 1 - Labs CBC & Chem 7: 10/23/23 07:09 10/23/23 07:09
[2023-10-24] MEDS: METOPROLOL TARTRATE 12.5 MG TAB PO SCH (08:58)
[2023-10-24 10:30] LABS: Basophils # (A) 0.1 k/uL (0-0.2); Basophils % (A) 1 %; Eosinophils # (A) 0.2 k/uL (0-0.7); Eosinophils % (A) 4 %; HCT 46.8 % (34.0-46.0); HGB 14.9 gm/dL (11.4-16.0); Hypochromasia Slight; Lymphocytes # (A) 1.9 k/uL (1.0-4.8); Lymphocytes % (A) 30 %; MCH 27.5 pg (25.0-35.0); MCHC 31.8 g/dL (31.0-37.0); MCV 86.4 fL (80.0-100.0); Mean Platelet Volume 8.9; Monocytes # (A) 0.5 k/uL (0-1.0); Monocytes % (A) 8 %; Neutrophils # (A) 3.6 k/uL (1.3-7.7); Neutrophils % (A) 56 %; Platelet Count 208 k/uL (150-450); RBC 5.42 m/uL (3.80-5.40); RDW 14.6 % (11.5-15.5); WBC 6.4 k/uL (3.8-10.6)
[2023-10-24 10:47] LABS: African American GFR (CKD) 66 (>60 ml/min/1.73 sqM); Anion Gap 7 mmol/L; Blood Urea Nitrogen 26 mg/dL (7-17); Calcium 9.3 mg/dL (8.4-10.2); Carbon Dioxide 31 mmol/L (22-30); Chloride 102 mmol/L (98-107); Glucose 117 mg/dL (74-99); Non-African American GFR(CKD) 57 (>60 ml/min/1.73 sqM); Potassium 3.7 mmol/L (3.5-5.1); Sodium 140 mmol/L (137-145)
[2023-10-24 11:25] VITALS: RESP 20
--- NOTE | 2023-10-24 11:48 | XR ---
EXAMINATION TYPE: XR chest 2V DATE OF EXAM: 10/24/2023 COMPARISON: 10/20/2023 HISTORY: 68-year-old female shortness of breath, cough, CHF TECHNIQUE: Frontal and lateral views of the chest are obtained. FINDINGS: The heart is moderately enlarged. Tortuous/ectatic thoracic aorta with atherosclerotic arc h calcifications median sternotomy wires and post-CABG clips. Hyperinflation. No miguel consolidation or pleural effusion. Possible fusiform aneurysm mid to lower descending thoracic aorta on the lateral view. IMPRESSION: 1. COPD and moderate cardiomegaly. 2. Similar findings of possible fusiform aneurysm mid to distal descending thoracic aorta. Unable to exclude aneurysm measuring up to 7 cm. [facility], , 10/24/2023 11:46 AM
--- NOTE | 2023-10-24 12:37 | P.PN ---
Subjective Progress Note Date: 10/24/23 Principal diagnosis: Acute hypoxemic respiratory failure secondary to a combination of acute systolic congestive heart failure and acute on chronic obstructive pulmonary disease ex acerbations. This is a pleasant 68-year-old female patient with a known history of coronary disease and previous coronary artery bypass grafting, hyperlipidemia, hypertension, former smoker however quit approximately 3 years ago. She had not been taking her cardiac medications at home. She was recently following up at [facility] here in town. She was on Symbicort and Spiriva for her COPD. She presented here to the emergency room yesterday with complaints of increasing shortness of breath, wheezing, cough and congestion. White count 4.5. Hemoglobin 13.2. Platelets 132. Sodium 145. Potassium 4.1. Bicarb 22. BUN 14. Creatinine 0.59. Glucose 124. proBNP 5530. Troponins negative x 3. Viral screen negative. Chest x-ray reveals cardiomegaly with diffuse interstitial prominence. She is seen today in consultation in the emergency department. She is currently sitting up in a stretcher. Awake and alert in no acute distress. She is dyspneic with conversation. Dyspneic with minimal exertion. She is maintaining O2 saturations in the 90s on 2 L/min per n kimberli cannula. She has been afebrile. Hemodynamically stable. The patient is seen today October 22, 2023 in follow-up on the selective care unit. She is currently sitting up in bed. Awake and alert in no acute distress. She is feeling better today compared to yesterday. She is maintaining good O2 saturations in the 90s on 2 L/min per nasal cannula. She is continued on DuoNeb and elations, Symbicort. Her procalcitonin was negative at 0.07. White count 6.1. Hemoglobin 13.8. Platelets 174. Sodium 144. Potassium 4.0. Bicarb 26. BUN 20. Creatinine 0.76. She remains on IV diuretics. Heparin for DVT prophylaxis. Currently in a -1.1 L balance. Echocardiogram reveals severely impaired left ventricular systolic function with ejection fraction of 30 to 35%. Moderate pulmonary hypertension. Patient was evaluated today on 10/23/2023, feeling better, breathing easier, less cough less wheezing less shortness of breath. Significant improvement since admission. Patient remains on diuretics and she remains on bronchodilators for her CHF and COPD. Her echocardiogram did reveal evidence of impaired left ventricular function ejection fraction of 30 to 35% and she does have moderate pulmonary hypertension WBC count today is 6 hemoglobin 14.9 basic metabolic profile is normal renal profile is normal Evaluated today on 10/24/2023, patient is feeling much better, breathing easier, her lungs are fairly clear today, not in any distress, she is on room air. WBC is 6.4 hemoglobin 14.9 electrolytes are normal bicarb is 31 BUN 26 creatinine 1.02, remains on diuretics. Objective - Vital Signs Vital signs: Vital Signs Temp 97.5 F L 10/24/23 11:24 Pulse 96 10/24/23 11:24 Resp 20 10/24/23 11:24 BP 110/78 10/24/23 11:24 Pulse Ox 90 L 10/24/23 11:24 FiO2 Intake & Output 10/23/23 10/24/23 10/24/23 18:59 06:59 18:59 Intake Total 1580 540 128 Output Total 950 800 250 Balance 630 -260 -122 Weight 76.3 kg Intake: IV 20 20 10 Invasive Line 1 20 20 10 Oral 1560 520 118 Output: Urine 950 800 250 Other: Voiding Method Bedside Commode Bedside Commode Bedside Commode # Bowel Movements 1 - Exam GENERAL EXAM: Alert, pleasant 68-year-old female, on room air, not in any distress HEAD: Normocephalic. EYES: Normal reaction of pupils, equal size. NOSE: Clear with pink turbinates. THROAT: No erythema or exudates. NECK: No masses, no JVD. CHEST: No chest wall deformity. LUNGS: Symmetrical expansion clear bilaterally no crackles rhonchi or wheezes CVS: S1 and S2 normal with no audible murmur, regular rhythm. ABDOMEN: No hepatosplenomegaly, normal bowel sounds, no guarding or rigidity. SKIN: No rashes CENTRAL NERVOUS SYSTEM: Alert oriented x 3 no gross focal deficit EXTREMITIES: No clubbing trace of edema no cyanosis - Labs CBC & Chem 7: 10/24/23 09:56 10/24/23 09:56 Labs: Abnormal Lab Results - Last 24 Hours (Table) 10/24/23 10/24/23 Range/Units 09:56 09:56 RBC 5.42 H (3.80-5.40) m/uL Hct 46.8 H (34.0-46.0) % Carbon Dioxide 31 H (22-30) mmol/L BUN 26 H (7-17) mg/dL Glucose 117 H (74-99) mg/dL Assessment and Plan Assessment: Impression: Acute hypoxemic respiratory failure secondary to a combination of acute systolic congestive heart failure and acute on chronic obstructive pulmonary disease exacerbations. Procalcitonin negative at 0.07. Echocardiogram reveals severely impaired left ventricular systolic function with ejection fraction 30 to 35%. Moderate pulmonary hypertension History of medication noncompliance Chronic obstructive pulmonary disease treated with Symbicort and Spiriva in the outpatient setting Former chronic tobacco dependence stating quit 3 years ago Coronary artery disease with previous coronary bypass grafting done at [facility] Hyperlipidemia Hypertension Recommendation: Significant improvement noted since admission patient is now on room air, cardiology is following her cardiac issues and cardiomyopathy/LV dysfunction with ejection fraction of 30 to 35% Continue bronchodilators and steroids, for her underlying COPD Continue diuretics Continue to monitor daily electrolytes and renal profile Consider discharge planning once she is cleared by cardiology Will continue to follow. Time with Patient: Less than 30
--- NOTE | 2023-10-24 15:15 | P.PN ---
Subjective Progress Note Date: 10/24/23 68 years old female who comes from home for shortness of breath for about 1 week. She has history of bypass surgery about 3 years ago. She has no chest pain. She is not on home oxygen. Her PCP prescribed her some prednisone with no much benefit She used to smoke and quit about 3 years ago. She denies any specific GI or urinary symptoms She walks little bit using a walker. No new weakness or lateralization. No numbness or dizziness or headache Currently she denies smoking alcohol or illicit drugs She is afebrile She is mildly tachypneic and saturating 93% on room air, saturation is better on 2 L She has unremarkable CBC, BMP Influenza A and type B, RSV, SARS (coronavirus) are and detected Troponin is negative less than 0.012 proBNP is 5530 EKG showing sinus rhythm at [address]-T changes but patient has a right bundle branch block Chest x-ray showing cardiomegaly with mild pulmonary vascular congestion but also with some evidence of COPD, I reviewed chest x-ray by myself. Patient currently placed on aspirin 81 mg Lipitor and IV Lasix 40 mg twice daily 10/23/2023 Patient is seen and evaluated in room at bedside; reports marked improvement in breathing Vital signs reviewed and stable with temperature of 98, pulse 60, respirations 17 and blood pressure 115/75 with O2 saturation 94% on 2 L Blood work is reviewed with WBCs of 6.0, hemoglobin of 14.9 and platelet count of 181, sodium 140, potassium 3.9, BUN/creatinine of 25/0.87, TSH within normal limits at 61.720 Echocardiogram is completed and reveals severe LV systolic dysfunction with EF of 30 to 35%; patient remains on Lasix 40 mg twice daily; cardiology on board and recommending cardiac catheterization down the line once patient is stable -Medications are being adjusted and patient cardiology recommending to start patient on Entresto, Jardiance and Aldactone Remains on Symbicort and DuoNeb nebulizer treatments; no changes per pulmonary 10/24/2023 --patient is seen and evaluated in room at bedside; reports feeling much better, breathing easier, her lungs are fairly clear today, not in any distress, she is on room air. Vital signs reviewed and stable with temperature of 97.5, pulse 96, respiration 20 and blood pressure of 110/78 Labs are reviewed WBC is 6.4 hemoglobin 14.9 electrolytes are normal bicarb is 31 BUN 26 creatinine 1.02, remains on diuretics. Cardiology is following and recommending to continue with IV diuretic therapy for possibly another 24 hours --Given severe cardiomyopathy with a EF of 30 to 35%, patient is recommended further ischemia workup once respiratory status is improved Objective - Vital Signs Vital signs: Vital Signs Temp 97.5 F L 10/24/23 11:24 Pulse 96 10/24/23 11:24 Resp 20 10/24/23 11:24 BP 110/78 10/24/23 11:24 Pulse Ox 90 L 10/24/23 11:24 FiO2 Intake & Output 10/23/23 10/24/23 10/24/23 18:59 06:59 18:59 Intake Total 1580 540 378 Output Total 950 800 250 Balance 630 -260 128 Weight 76.3 kg Intake: IV 20 20 20 Invasive Line 1 20 20 20 Oral 1560 520 358 Output: Urine 950 800 250 Other: Voiding Method Bedside Commode Bedside Commode Bedside Commode # Bowel Movements 1 - Exam GENERAL: The patient is alert and oriented x3, not in any acute distress. Well developed, well nourished. HEENT: Pupils are round and equally reacting to light. EOMI. No scleral icterus. No conjunctival pallor. Normocephalic, atraumatic. No pharyngeal erythema. No thyromegaly. CARDIOVASCULAR: S1 and S2 present. No murmurs, rubs, or gallops. -PULMONARY: Chest is clear to auscultation, bilateral scattered wheezing , no crackles. ABDOMEN: Soft, nontender, nondistended, normoactive bowel sounds. No palpable organomegaly. MUSCULOSKELETAL: No joint swelling or deformity. EXTREMITIES: No cyanosis, clubbing, or pedal edema. NEUROLOGICAL: Gross neurological examination did not reveal any focal deficits. SKIN: No rashes. no petechiae. 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 Continue same treatment. Continue with symptomatic treatment. Resume home medication. Monitor labs and vitals. DVT and GI prophylaxis. Further recommendations as per clinical course of the patient DVT prophylaxis: Subcutaneous heparin GI Prophylaxis: Pepcid PT/OT: Pending Prognosis is guarded
--- NOTE | 2023-10-24 18:42 | CT ---
EXAMINATION TYPE: CT chest abdomen pelvis without contrast. CT angiogram chest abdomen pelvis with contrast. CT DLP: 1536.2 mGycm, Automated exposure control for dose reduction was used. DATE OF EXAM: 10/24/2023 6:25 PM COMPARISON: 10/24/2023 . CLINICAL INDICATION: Female, 68 years old with history of possible aneurysm seen on XR; PHH, Possible aneurysm seen on XR. TECHNIQUE: CT chest abdomen pelvis without and rwith contrast Dissection protocol: Multiple axial CT images of the chest, abdomen, and pelvis were obtained prior and to the administration of IV contrast . 3-D reformats and maximum intensity projection format were performed on a separate workstation. Contrast used:80ml mL of Isovue 370 with IV Contrast, Oral contrast used: FINDINGS: ARTERIAL VASCULATURE: No evidence for intramural hematoma on noncontrast imaging. There is severe ath erosclerotic plaque throughout the visualized vasculature. The major vessels of the abdominal aorta a re patent on postcontrast imaging. No ascending thoracic aorta aneurysm. The descending thoracic aort a demonstrates aneurysmal dilation with partially thrombose saccular aneurysm measuring up to 7.4 cm x 5.9 cm. Additional abdominal aortic aneurysm as the aorta enters the abdomen measuring up to 46 x 4 9 mm. There is thrombus along the right lateral wall. The abdominal aorta and its branches are patent . No evidence for additional aneurysm. Bilateral common iliac arteries are patent the external iliac arteries are patent. There are severe atherosclerosis of the vasculature. PULMONARY ARTERIAL VASCULATURE: Normal caliber. No evidence of filling defect to suggest pulmonary em bolus. VENOUS SYSTEM: Unremarkable. LUNGS/ PLEURA: No focal consolidation, pneumothorax or pleural effusion. Moderate centrilobular emphy sema changes are seen throughout the lungs. Atelectasis seen within the left lower lung max of the sa ccular aneurysm. AIRWAY: Opacified airways. HEART: Size within normal limits. Severe atherosclerosis of the coronary arteries. MEDIASTINUM: No gross evidence of adenopathy. MUSCULOSKELETAL: Mild disc degeneration changes are present throughout the thoracolumbar spine. SOFT TISSUES/LYMPH NODES: Unremarkable. LOWER NECK: Multiple thyroid nodules are seen some extending off the superior mediastinum. Abdomen: LIVER: Unremarkable GALLBLADDER AND BILE DUCTS: Cholelithiasis layering in the lumen. PANCREAS: Unremarkable. SPLEEN: Unremarkable. ADRENAL GLANDS: Unremarkable. KIDNEYS AND URETERS: No evidence of hydronephrosis or renal calculus. The ureters are unremarkable. PELVIS BLADDER: Unremarkable REPRODUCTIVE: Lobulated contour with multiple partially calcified fibroids. ABDOMEN & PELVIS STOMACH AND BOWEL: No evidence of bowel obstruction. Colonic diverticula scattered throughout the col on. The appendix is normal. PERITONEUM/RETROPERITONEUM: No evidence of pneumoperitoneum or free fluid. MUSCULOSKELETAL: No acute osseous abnormalitiesr intramuscular lipoma within the anterior thigh thierry rtment partially visualized measuring at least 45 x 27 mm LYMPH NODES: No gross evidence for lymphadenopathy. SOFT TISSUE/ABDOMINAL WALL: Unremarkable IMPRESSION: 1. Saccular aneurysm measuring up to 7.4 cm off the descending thoracic aorta. This is partially thr ombosed. Vascular surgery consultation recommended. 2. Additional abdominal aortic aneurysm as the aorta enters the abdomen measuring up to 46 x 49 mm. 3. Severe atherosclerosis of the arterial vasculature including the coronary arteries. 4. No evidence for dissection. No evidence for pulmonary embolus. 5. Moderate COPD changes with opacified large airways in the lower lobes likely from mucous plugging . 6. Fibroid uterus. 7. Colonic diverticulosis. 8. Left ovarian cyst measuring up to 2.5 cm. Follow-up nonemergent ultrasound recommended. 9. Left anterior thigh intramuscular lipoma. 10. Multinodular right thyroid gland correlate with thyroid ultrasound. The thyroid gland extends in to the superior mediastinum. [facility], , 10/24/2023 6:40 PM
--- NOTE | 2023-10-24 19:22 | P.GSCN ---
History of Present Illness Consult date: 10/24/23 Reason for Consult: Thoracic aneurysm History of present illness: 68-year-old female with history of coronary artery bypass surgery, COPD, pres ented to the hospital for shortness of breath for approximately 1 week. During her workup she had a chest x-ray that demonstrated a large thoracic aneurysm. She denies any significant chest pain or back pain. She has been on prednisone from her primary care physician with no significant improvement. She denies any fevers, or chills. Review of Systems All systems: negative (What is mentioned in the HPI or past medical history) Past Medical History Past Medical History: Asthma History of Any Multi-Drug Resistant Organisms: None Reported Past Surgical History: No Surgical Hx Reported Past Psychological History: No Psychological Hx Reported Smoking Status: Former smoker Past Alcohol Use History: None Reported Past Drug Use History: None Reported Medications and Allergies Home Medications Medication Instructions Recorded Confirmed Type Albuterol Inhaler [Ventolin Hfa 2 puff INHALATION RT-QID PRN 10/20/23 10/20/23 History Inhaler] Allergies Allergy/AdvReac Type Severity Reaction Status Date / Time adhesive Allergy Rash/Hives Verified 10/20/23 15:39 Surgical - Exam Vital Signs Temp Pulse Resp BP Pulse Ox 98.2 F 75 22 98/62 95 10/20/23 11:13 10/20/23 11:13 10/20/23 11:13 10/20/23 11:13 10/20/23 11:13 - General well developed, well nourished, no distress - Eyes PERRL, normal ocular movement - ENT normal pinna, normal nares - Neck no masses, no bruits, trachea midline - Cardiovascular Rhythm: regular - Abdomen Abdomen: soft, non tender - Integumentary no rash - Psychiatric oriented to time, oriented to person, oriented to place, speech is normal Results CTA chest abdomen pelvis demonstrates large saccular aneurysm involving the descending thoracic aorta extending into the abdominal aorta involving the celiac, SMA down to the renal arteries. - Labs 10/24/23 09:56 10/24/23 09:56 Abnormal Lab Results - Last 24 Hours (Table) 10/24/23 10/24/23 Range/Units 09:56 09:56 RBC 5.42 H (3.80-5.40) m/uL Hct 46.8 H (34.0-46.0) % Carbon Dioxide 31 H (22-30) mmol/L BUN 26 H (7-17) mg/dL Glucose 117 H (74-99) mg/dL Diabetes panel 10/24/23 Range/Units 09:56 Sodium 140 (137-145) mmol/L Potassium 3.7 (3.5-5.1) mmol/L Chloride 102 (98-107) mmol/L Carbon Dioxide 31 H (22-30) mmol/L BUN 26 H (7-17) mg/dL Creatinine 1.02 (0.52-1.04) mg/dL Glucose 117 H (74-99) mg/dL Calcium 9.3 (8.4-10.2) mg/dL Calcium panel 10/24/23 Range/Units 09:56 Calcium 9.3 (8.4-10.2) mg/dL Pituitary panel 10/24/23 Range/Units 09:56 Sodium 140 (137-145) mmol/L Potassium 3.7 (3.5-5.1) mmol/L Chloride 102 (98-107) mmol/L Carbon Dioxide 31 H (22-30) mmol/L BUN 26 H (7-17) mg/dL Creatinine 1.02 (0.52-1.04) mg/dL Glucose 117 H (74-99) mg/dL Calcium 9.3 (8.4-10.2) mg/dL Adrenal panel 10/24/23 Range/Units 09:56 Sodium 140 (137-145) mmol/L Potassium 3.7 (3.5-5.1) mmol/L Chloride 102 (98-107) mmol/L Carbon Dioxide 31 H (22-30) mmol/L BUN 26 H (7-17) mg/dL Creatinine 1.02 (0.52-1.04) mg/dL Glucose 117 H (74-99) mg/dL Calcium 9.3 (8.4-10.2) mg/dL Assessment and Plan Assessment: 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 Due to the extent of the aneurysm and its distal involvement within the abdominal vessels recommendation would be for tertiary center for possible open versus branch repair TAMBE due to the extent. Would recommend treatment sooner rather than later due to the saccular aneurysm. Thank you for the consultation.
[2023-10-25 00:09] VITALS: BP 93/56; PULSE 75; TEMP 98
[2023-10-25] MEDS ORDERED: FAMOTIDINE 20 MG/2 ML VIAL IV SCH (09:00)
== END 2023-10-24 23:45 | disposition home or self-care (01) | DRG 291 ==
LOC: EDBD → EC 11:04 → MERGE 11:04 → SUPCPDRO 11:04 → 3SCARD 14:28
PROVIDERS: ADMIT Hospitalist; ATTEND Hospitalist
DX: I11.0 Hypertensive heart disease with heart failure (principal); I50.21 Acute systolic (congestive) heart failure; J96.01 Acute respiratory failure with hypoxia; J44.1 Chronic obstructive pulmonary disease with (acute) exacerbation; I42.9 Cardiomyopathy, unspecified; E78.5 Hyperlipidemia, unspecified; I25.10 Atherosclerotic heart disease of native coronary artery without angina pectoris; I71.60 Thoracoabdominal aortic aneurysm, without rupture, unspecified; I45.10 Unspecified right bundle-branch block; I27.20 Pulmonary hypertension, unspecified; I34.0 Nonrheumatic mitral (valve) insufficiency; Z87.891 Personal history of nicotine dependence; Z95.1 Presence of aortocoronary bypass graft; Z79.82 Long term (current) use of aspirin; Z79.899 Other long term (current) drug therapy
CPT/HCPCS: 36415; 71046; 71275; 74174; 80048; 83880; 84145; 84443; 84484; 85025; 87636; 93005; 93306; 94640; 94760; 96372; 96374; 99285

== ENCOUNTER 2024-01-16 04:08 | Inpatient (IN) | payer MEDICARE ==
[2024-01-16 04:35] LABS: Anisocytosis Slight; Basophils % (A) 0 %; Eosinophils # (A) 0.2 k/uL (0-0.7); Eosinophils % (A) 2 %; HCT 34.4 % (34.0-46.0); HGB 10.8 gm/dL (11.4-16.0); Hypochromasia Marked; Lymphocytes # (A) 2.2 k/uL (1.0-4.8); Lymphocytes % (A) 33 %; MCH 27.4 pg (25.0-35.0); MCHC 31.3 g/dL (31.0-37.0); MCV 87.5 fL (80.0-100.0); Mean Platelet Volume 8.8; Monocytes # (A) 0.4 k/uL (0-1.0); Monocytes % (A) 5 %; Neutrophils # (A) 3.8 k/uL (1.3-7.7); Neutrophils % (A) 56 %; Platelet Count 275 k/uL (150-450); RBC 3.93 m/uL (3.80-5.40); RDW 17.8 % (11.5-15.5); WBC 6.7 k/uL (3.8-10.6)
--- NOTE | 2024-01-16 04:36 | ED ---
SOB HPI - General Chief Complaint: Shortness of Breath Stated Complaint: NEYDA Time Seen by Provider: 01/16/24 04:19 Source: patient Mode of arrival: EMS Limitations: no limitations - History of Present Illness Initial Comments: Patient is a 68-year-old woman who presents with complaint that she is becoming short of breath. The patient relates that this has been coming on over the past 1-2 hours. She states she believes that it was brought on by "moving around too much." Denies fever or chills. No productive cough. She denies chest pain. She has not noted change in urination or bowel movements. She states it does feel little similar to previous episode of congestive heart failure. MD Complaint: shortness of breath -: hour(s) Severity scale (1-10): 0 Consistency: constant Improves With: upright position Worsens With: lying flat, exertion Known History Of: congestive heart failure Treatments Prior to Arrival: none - Related Data Home Medications Medication Instructions Recorded Confirmed Apixaban [Eliquis] 5 mg PO BID 01/16/24 01/16/24 Atorvastatin [Lipitor] 20 mg PO DAILY 01/16/24 01/16/24 Furosemide [Lasix] 40 mg PO DAILY 01/16/24 01/16/24 Nitroglycerin Sl Tabs [Nitrostat] 0.4 mg SUBLINGUAL Q5M PRN 01/16/24 01/16/24 Previous Rx's Medication Instructions Recorded Budesonide-Formot 160-4.5 Mcg 2 puff INHALATION BID #10.2 gm 01/19/24 [Symbicort 160-4.5 Mcg Inhaler] Dapagliflozin Propanediol [Farxiga] 5 mg PO DAILY #30 tab 01/19/24 Hydrocortisone Cream 1 applic TOPICAL BID PRN each 01/19/24 [Hydrocortisone 1% Cream] Metoprolol Succinate (ER) [Toprol 100 mg PO DAILY #30 tab 01/19/24 XL] predniSONE See Taper PO DIRECTED #30 tab 01/19/24 Allergies Allergy/AdvReac Type Severity Reaction Status Date / Time adhesive Allergy Rash/Hives Verified 01/16/24 09:18 Review of Systems ROS Statement: Those systems with pertinent positive or pertinent negative responses have been documented in the HPI. ROS Other: All systems not noted in ROS Statement are negative. Constitutional: Denies: fever, chills, weakness Respiratory: Reports: dyspnea. Denies: cough, wheezes, hemoptysis Cardiovascular: Reports: dyspnea on exertion, orthopnea. Denies: chest pain, palpitations, edema, syncope Gastrointestinal: Denies: abdominal pain, nausea, vomiting, diarrhea Genitourinary: Denies: dysuria, hematuria Musculoskeletal: Denies: back pain Skin: Denies: rash Neurological: Denies: headache, weakness, numbness Psychiatric: Reports: anxiety Past Medical History Past Medical History: Atrial Fibrillation, Asthma, Chest Pain / Angina History of Any Multi-Drug Resistant Organisms: None Reported Past Surgical History: No Surgical Hx Reported Past Psychological History: No Psychological Hx Reported Smoking Status: Former smoker Past Alcohol Use History: None Reported Past Drug Use History: None Reported General Exam Limitations: no limitations General appearance: alert, in no apparent distress Head exam: Present: atraumatic, normocephalic Eye exam: Present: normal appearance. Absent: scleral icterus, conjunctival injection Neck exam: Present: normal inspection Respiratory exam: Present: respiratory distress (Tachypnea and pursed lip breathing), rales. Absent: wheezes, rhonchi, stridor, accessory muscle use, decreased breath sounds, prolonged expiratory Cardiovascular Exam: Present: tachycardia, irregular rhythm, systolic murmur. Absent: diastolic murmur, rubs, gallop GI/Abdominal exam: Present: soft. Absent: distended, tenderness, guarding, rebound, rigid, mass, pulsatile mass, hernia Extremities exam: Present: normal inspection, normal capillary refill. Absent: pedal edema, calf tenderness Back exam: Present: normal inspection. Absent: CVA tenderness (R), CVA tenderness (L) Neurological exam: Present: alert Skin exam: Present: warm, dry, intact, normal color. Absent: rash Course Vital Signs 01/16/24 01/16/24 01/16/24 04:11 04:18 05:21 Temperature 97.8 F Pulse Rate 155 H 78 Pulse Rate [ 116 H Apical] Respiratory 35 H 22 Rate Blood Pressure 114/97 136/68 Blood Pressure [Left Arm] Blood Pressure [Right Arm] O2 Sat by Pulse 92 L 96 Oximetry 01/16/24 01/16/24 01/16/24 06:11 06:53 08:30 Temperature Pulse Rate 87 78 74 Pulse Rate [ Apical] Respiratory 17 16 18 Rate Blood Pressure 128/66 111/67 130/84 Blood Pressure [Left Arm] Blood Pressure [Right Arm] O2 Sat by Pulse 94 L 94 L 98 Oximetry 01/16/24 01/16/24 01/16/24 09:02 09:33 10:20 Temperature Pulse Rate 64 61 58 L Pulse Rate [ Apical] Respiratory 18 20 18 Rate Blood Pressure 122/100 101/54 118/58 Blood Pressure [Left Arm] Blood Pressure [Right Arm] O2 Sat by Pulse 100 98 97 Oximetry 01/16/24 01/16/24 01/16/24 11:09 11:16 11:26 Temperature Pulse Rate 67 66 76 Pulse Rate [ Apical] Respiratory 18 Rate Blood Pressure 133/57 Blood Pressure [Left Arm] Blood Pressure [Right Arm] O2 Sat by Pulse 96 Oximetry 01/16/24 01/16/24 01/16/24 12:00 14:00 14:58 Temperature 97.8 F Pulse Rate 69 84 93 Pulse Rate [ Apical] Respiratory 18 18 20 Rate Blood Pressure 131/81 123/89 136/97 Blood Pressure [Left Arm] Blood Pressure [Right Arm] O2 Sat by Pulse 97 96 97 Oximetry 01/16/24 01/16/24 01/16/24 16:35 17:34 19:16 Temperature 97.8 F Pulse Rate 92 91 91 Pulse Rate [ Apical] Respiratory 18 18 18 Rate Blood Pressure 120/77 108/68 104/91 Blood Pressure [Left Arm] Blood Pressure [Right Arm] O2 Sat by Pulse 98 95 94 L Oximetry 01/16/24 01/16/24 01/17/24 20:45 20:55 01:24 Temperature Pulse Rate 73 81 128 H Pulse Rate [ Apical] Respiratory 18 Rate Blood Pressure 95/77 Blood Pressure [Left Arm] Blood Pressure [Right Arm] O2 Sat by Pulse 98 Oximetry 01/17/24 01/17/24 01/17/24 08:24 08:25 08:26 Temperature 97.6 F Pulse Rate 73 Pulse Rate [ 116 H 116 H Apical] Respiratory 16 17 16 Rate Blood Pressure Blood Pressure 87/56 [Left Arm] Blood Pressure 102/69 [Right Arm] O2 Sat by Pulse 98 Oximetry 01/17/24 01/17/24 01/17/24 08:34 11:28 11:29 Temperature 97.5 F L Pulse Rate 78 Pulse Rate [ 96 Apical] Respiratory 16 17 17 Rate Blood Pressure Blood Pressure 106/74 [Left Arm] Blood Pressure [Right Arm] O2 Sat by Pulse 88 L 94 L Oximetry 01/17/24 01/17/24 12:30 14:00 Temperature 97.5 F L Pulse Rate Pulse Rate [ 96 96 Apical] Respiratory 17 17 Rate Blood Pressure Blood Pressure 106/74 [Left Arm] Blood Pressure [Right Arm] O2 Sat by Pulse 94 L Oximetry Medical Decision Making - Medical Decision Making This patient is a 68-year-old woman who arrives by ambulance to have evaluation of shortness of breath. On the exam, the patient has rapid irregular heartbeat, tachypnea and pursed lip breathing with some bibasilar crackles. The patient's ECG does show atrial fibrillation with rapid ventricular rate. I do not find previous ECG with A-fib. The patient will be admitted for rate control and cardiology consultation. Review of the records finds that patient does have echocardiogram with previous ejection fraction noted to be 30 to 35%. The patient had chest x-ray which I interpreted as negative for acute infiltrate, pneumothorax, congestive heart failure Was pt. sent in by a medical professional or institution (, PA, JBOSS DEVELOPER, urgent care, hospital, or alf...) When possible be specific @ -[No] Did you speak to anyone other than the patient for history (EMS, parent, family, police, friend...)? What history was obtained from this source @ -[No] Did you review nursing and triage notes (agree or disagree)? Why? @ -[I reviewed and agree with nursing and triage notes] Were old charts reviewed (outside hosp., previous admission, EMS record, old EKG, old radiological studies, urgent care reports/EKG's, alf records)? Report findings @ -[No old charts were reviewed] Differential Diagnosis (chest pain, altered mental status, abdominal pain women, abdominal pain men, vaginal bleeding, weakness, fever, dyspnea, syncope, headache, dizziness, GI bleed, back pain, seizure, CVA, palpatations, mental health, musculoskeletal)? @ -[Differential Dyspnea: Coronary syndrome, arrhythmia, tamponade, asthma, COPD, pulmonary embolism, pneumonia, pneumothorax, pulmonary effusion, anaphylaxis, diabetic ketoacidosis, flailed chest, pulmonary contusion, diaphragmatic rupture, anemia, neuromuscular, this is not meant to be an all-inclusive list. EKG interpreted by me (3pts min.). @ -[I interpreted as above] X-rays interpreted by me (1pt min.). @ -[I interpreted as above CT interpreted by me (1pt min.). @ -[None done] U/S interpreted by me (1pt. min.). @ -[None done] What testing was considered but not performed or refused? (CT, X-rays, U/S, labs)? Why? @ -[None] What meds were considered but not given or refused? Why? @ -[None] Did you discuss the management of the patient with other professionals (professionals i.e. , PA, JBOSS DEVELOPER, lab, RT, psych nurse, social service worker, senior network systems engineer, teacher, medical officer psychiatry, case manager specialist)? Give summary @ -[Case discussed with admitting physician and treatment recommendations incorporated Was smoking cessation discussed for >3mins.? @ -[No] Was critical care preformed (if so, how long)? @ -[No] Were there social determinants of health that impacted care today? How? (Homelessness, low income, unemployed, alcoholism, drug addiction, transportation, low edu. Level, literacy, decrease access to med. care, [facility] [facility], rehab)? @ -[No] Was there de-escalation of care discussed even if they declined (Discuss DNR or withdrawal of care, Hospice)? DNR status @ -[No] What co-morbidities impacted this encounter? (DM, HTN, Smoking, COPD, CAD, Cancer, CVA, ARF, Chemo, Hep., AIDS, mental health diagnosis, sleep apnea, morbid obesity)? @ -[None] Was patient admitted / discharged? Hospital course, mention meds given and route, prescriptions, significant lab abnormalities, going to OR and other pertinent info. @ -[Patient is 68-year-old woman here with dyspnea and found to be in what appears to be new onset of atrial fibrillation. Will admit to have further cardiology consultation Undiagnosed new problem with uncertain prognosis? @ -[No] Drug Therapy requiring intensive monitoring for toxicity (Heparin, Nitro, Insulin, Cardizem)? @ -[No] Were any procedures done? @ -[No] Diagnosis/symptom? @ -[Acute dyspnea Atrial fibrillation with rapid ventricular rate Acute, or Chronic, or Acute on Chronic? @ -[Acute Uncomplicated (without systemic symptoms) or Complicated (systemic symptoms)? @ -[Complicated by dyspnea Side effects of treatment? @ -[No] Exacerbation, Progression, or Severe Exacerbation? @ -[No] Poses a threat to life or bodily function? How? (Chest pain, USA, VT, pneumonia, PE, COPD, DKA, ARF, appy, cholecystitis, CVA, Diverticulitis, Homicidal, Suicidal, threat to staff... and all critical care pts) @ -Requires further cardiology evaluation and treatment - Lab Data Result diagrams: 01/17/24 05:53 01/19/24 06:46 Lab Results 01/16/24 01/16/24 01/16/24 Range/Units 04:15 04:15 04:15 WBC 6.7 (3.8-10.6) k/uL RBC 3.93 (3.80-5.40) m/uL Hgb 10.8 L (11.4-16.0) gm/dL Hct 34.4 (34.0-46.0) % MCV 87.5 (80.0-100.0) fL MCH 27.4 (25.0-35.0) pg MCHC 31.3 (31.0-37.0) g/dL RDW 17.8 H (11.5-15.5) % Plt Count 275 (150-450) k/uL MPV 8.8 Neutrophils % 56 % Lymphocytes % 33 % Monocytes % 5 % Eosinophils % 2 % Basophils % 0 % Neutrophils # 3.8 (1.3-7.7) k/uL Lymphocytes # 2.2 (1.0-4.8) k/uL Monocytes # 0.4 (0-1.0) k/uL Eosinophils # 0.2 (0-0.7) k/uL Basophils # 0.0 (0-0.2) k/uL Hypochromasia Marked Anisocytosis Slight PT 15.9 H (10.0-12.5) sec INR 1.5 H (<1.2) APTT 26.7 (22.0-30.0) sec Sodium 144 (137-145) mmol/L Potassium 4.4 (3.5-5.1) mmol/L Chloride 117 H (98-107) mmol/L Carbon Dioxide 16 L (22-30) mmol/L Anion Gap 11 mmol/L BUN 24 H (7-17) mg/dL Creatinine 0.93 (0.52-1.04) mg/dL Est GFR (CKD-EPI)AfAm 74 (>60 ml/min/1.73 sqM) Est GFR (CKD-EPI)NonAf 64 (>60 ml/min/1.73 sqM) Glucose 171 H (74-99) mg/dL Lactic Ac Sepsis Rflx Plasma Lactic Acid Gentry (0.7-2.0) mmol/L Calcium 9.1 (8.4-10.2) mg/dL Magnesium 1.8 (1.6-2.3) mg/dL Total Bilirubin 1.6 H (0.2-1.3) mg/dL AST 36 (14-36) U/L ALT 22 (4-34) U/L Alkaline Phosphatase 136 H (38-126) U/L Troponin I (0.000-0.034) ng/mL NT-Pro-B Natriuret Pep 7270 pg/mL Total Protein 6.9 (6.3-8.2) g/dL Albumin 4.1 (3.5-5.0) g/dL TSH 1.580 (0.465-4.680) mIU/L 01/16/24 01/16/24 01/16/24 Range/Units 04:15 04:15 04:44 WBC (3.8-10.6) k/uL RBC (3.80-5.40) m/uL Hgb (11.4-16.0) gm/dL Hct (34.0-46.0) % MCV (80.0-100.0) fL MCH (25.0-35.0) pg MCHC (31.0-37.0) g/dL RDW (11.5-15.5) % Plt Count (150-450) k/uL MPV Neutrophils % % Lymphocytes % % Monocytes % % Eosinophils % % Basophils % % Neutrophils # (1.3-7.7) k/uL Lymphocytes # (1.0-4.8) k/uL Monocytes # (0-1.0) k/uL Eosinophils # (0-0.7) k/uL Basophils # (0-0.2) k/uL Hypochromasia Anisocytosis PT (10.0-12.5) sec INR (<1.2) APTT (22.0-30.0) sec Sodium (137-145) mmol/L Potassium (3.5-5.1) mmol/L Chloride (98-107) mmol/L Carbon Dioxide (22-30) mmol/L Anion Gap mmol/L BUN (7-17) mg/dL Creatinine (0.52-1.04) mg/dL Est GFR (CKD-EPI)AfAm (>60 ml/min/1.73 sqM) Est GFR (CKD-EPI)NonAf (>60 ml/min/1.73 sqM) Glucose (74-99) mg/dL Lactic Ac Sepsis Rflx Y Plasma Lactic Acid Gentry 2.6 H* (0.7-2.0) mmol/L Calcium (8.4-10.2) mg/dL Magnesium (1.6-2.3) mg/dL Total Bilirubin (0.2-1.3) mg/dL AST (14-36) U/L ALT (4-34) U/L Alkaline Phosphatase (38-126) U/L Troponin I 0.022 (0.000-0.034) ng/mL NT-Pro-B Natriuret Pep pg/mL Total Protein (6.3-8.2) g/dL Albumin (3.5-5.0) g/dL TSH (0.465-4.680) mIU/L - EKG Data -: EKG Interpreted by [place] EKG shows normal: axis (Indeterminate), intervals (QRS duration 138 ms, prolonged consistent with right bundle branch block. QTc 404 ms, normal), QRS complexes (Right bundle branch block pattern) Rate: tachycardia (146 bpm) Interpretation: other (Rhythm is atrial fibrillation with a rate of 146 bpm) Disposition Clinical Impression: Heart failure, Atrial fibrillation with RVR Disposition: ADMITTED IP TO THIS HOSP Condition: Fair Is patient prescribed a controlled substance at d/c from ED?: No
[2024-01-16 04:39] LABS: ALT 22 U/L (4-34); AST 36 U/L (14-36); African American GFR (CKD) 74 (>60 ml/min/1.73 sqM); Albumin 4.1 g/dL (3.5-5.0); Alkaline Phosphatase 136 U/L (38-126); Anion Gap 11 mmol/L; Blood Urea Nitrogen 24 mg/dL (7-17); Calcium 9.1 mg/dL (8.4-10.2); Carbon Dioxide 16 mmol/L (22-30); Chloride 117 mmol/L (98-107); Glucose 171 mg/dL (74-99); Magnesium 1.8 mg/dL (1.6-2.3); Non-African American GFR(CKD) 64 (>60 ml/min/1.73 sqM); Potassium 4.4 mmol/L (3.5-5.1); Sodium 144 mmol/L (137-145); Total Bilirubin 1.6 mg/dL (0.2-1.3); Total Protein 6.9 g/dL (6.3-8.2)
[2024-01-16 04:48] LABS: NT-Pro-B-Type Natriuretic Pept 7270 pg/mL
[2024-01-16] MEDS: DILTIAZEM DRIP BOLUS FROM BAG 1 MG SOLN IV ONE (04:53)
[2024-01-16] MEDS: DILTIAZEM 125 MG in SODIUM CHLORIDE 0.9% 100 ML IV SCH (04:53)
[2024-01-16 04:55] LABS: INR 1.5 (<1.2); Partial Thromboplastin Time 26.7 sec (22.0-30.0); Prothrombin Time 15.9 sec (10.0-12.5)
--- NOTE | 2024-01-16 06:00 | XR ---
EXAM: XR Chest, 2 Views CLINICAL HISTORY: : dysrhythmia TECHNIQUE: Frontal and lateral views of the chest. COMPARISON: October 24, 2023 and July 21, 2023. IMPRESSION: No acute findings. The lungs are clear of acute findings. No pleural fluid or pneumothorax. The heart is enlarged. Additionally, there is a masslike bulge along the left heart border. This is similar to July 21, 2023.
[2024-01-16] MEDS: FUROSEMIDE 10 MG/ML 4 ML VIAL IV SCH (06:54)
[2024-01-16] MEDS: APIXABAN 5 MG TAB PO SCH (08:34)
[2024-01-16] MEDS: METOPROLOL SUCCINATE (ER) 50 MG TAB.ER.24H PO SCH (08:34)
[2024-01-16] MEDS ORDERED: NITROGLYCERIN SL TABS 0.4 MG TAB SUBLINGUAL PRN (09:33)
--- NOTE | 2024-01-16 09:39 | P.HPIM ---
History of Present Illness 68-year-old female came in with complaints of shortness of breath. Found to be in atrial fibrillation was started on Cardizem which is subsequently discontinued and presently on metoprolol patient also takes Eliquis at home. Patient does have history of COPD does not use any oxygen at home. Patient also has congestive heart failure EF of around 30 to 35% but chest x-ray did not show any CHF clinically patient does not appear to be in CHF although patient has barely any air movement. Appears to be in COPD exacerbation. REVIEW OF SYSTEMS: All other systems are negative except those mentioned in the HPI PHYSICAL EXAMINATION: GENERAL: The patient is alert and oriented x3, not in any acute distress. Well developed, well nourished. HEENT: Pupils are round and equally reacting to light. EOMI. No scleral icterus. No conjunctival pallor. Normocephalic, atraumatic. No pharyngeal erythema. No thyromegaly. CARDIOVASCULAR: S1 and S2 present. No murmurs, rubs, or gallops. PULMONARY: Limited air movement, no wheezing. ABDOMEN: Soft, nontender, nondistended, normoactive bowel sounds. No palpable organomegaly. MUSCULOSKELETAL: No joint swelling or deformity. EXTREMITIES: No cyanosis, clubbing, or pedal edema. NEUROLOGICAL: Gross neurological examination did not reveal any focal deficits. SKIN: No rashes. Assessment and plan -Acute hypoxic and hypercapnic respiratory failure secondary to COPD /asthma exacerbation patient will be given a dose of IV steroid followed by oral steroid from tomorrow along with Pepcid. -Paroxysmal atrial fibrillation presently rate controlled patient is on metoprolol and Eliquis which will be continued -Congestive failure chronic systolic function without any acute exacerbation at this time continue with oral Lasix that she takes at home -Chronic intermittent asthma DVT prophylaxis: Patient is on Eliquis due to continued Past Medical History Past Medical History: Atrial Fibrillation, Asthma, Chest Pain / Angina History of Any Multi-Drug Resistant Organisms: None Reported Past Surgical History: No Surgical Hx Reported Past Psychological History: No Psychological Hx Reported Smoking Status: Former smoker Past Alcohol Use History: None Reported Past Drug Use History: None Reported Medications and Allergies Home Medications Medication Instructions Recorded Confirmed Type Apixaban [Eliquis] 5 mg PO BID 01/16/24 01/16/24 History Atorvastatin [Lipitor] 20 mg PO DAILY 01/16/24 01/16/24 History Empagliflozin [Jardiance] 10 mg PO DAILY 01/16/24 01/16/24 History Furosemide [Lasix] 40 mg PO DAILY 01/16/24 01/16/24 History Losartan [Cozaar] 25 mg PO DAILY 01/16/24 01/16/24 History Metoprolol Succinate (ER) [Toprol 25 mg PO DAILY 01/16/24 01/16/24 History Xl] Nitroglycerin Sl Tabs [Nitrostat] 0.4 mg SUBLINGUAL Q5M PRN 01/16/24 01/16/24 History Allergies Allergy/AdvReac Type Severity Reaction Status Date / Time adhesive Allergy Rash/Hives Verified 01/16/24 09:18 Physical Exam Vitals: Vital Signs Temp Pulse Pulse Resp BP Pulse Ox 01/16/24 09:33 61 20 101/54 98 01/16/24 09:02 64 18 122/100 100 01/16/24 08:30 74 18 130/84 98 01/16/24 06:53 78 16 111/67 94 L 01/16/24 06:11 87 17 128/66 94 L 01/16/24 05:21 78 22 136/68 96 01/16/24 04:18 116 H 01/16/24 04:11 97.8 F 155 H 35 H 114/97 92 L Intake and Output 01/15/24 01/16/24 01/16/24 22:59 06:59 14:59 Other: Weight 70.307 kg Results CBC & Chem 7: 01/16/24 04:15 01/16/24 04:15 Labs: Abnormal Lab Results - Last 24 Hours (Table) 01/16/24 01/16/24 01/16/24 Range/Units 04:15 04:15 04:15 Hgb 10.8 L (11.4-16.0) gm/dL RDW 17.8 H (11.5-15.5) % PT 15.9 H (10.0-12.5) sec INR 1.5 H (<1.2) Chloride 117 H (98-107) mmol/L Carbon Dioxide 16 L (22-30) mmol/L BUN 24 H (7-17) mg/dL Glucose 171 H (74-99) mg/dL Plasma Lactic Acid Gentry (0.7-2.0) mmol/L Total Bilirubin 1.6 H (0.2-1.3) mg/dL Alkaline Phosphatase 136 H (38-126) U/L 01/16/24 Range/Units 04:15 Hgb (11.4-16.0) gm/dL RDW (11.5-15.5) % PT (10.0-12.5) sec INR (<1.2) Chloride (98-107) mmol/L Carbon Dioxide (22-30) mmol/L BUN (7-17) mg/dL Glucose (74-99) mg/dL Plasma Lactic Acid Gentry 2.6 H* (0.7-2.0) mmol/L Total Bilirubin (0.2-1.3) mg/dL Alkaline Phosphatase (38-126) U/L
--- NOTE | 2024-01-16 09:45 | P.CRDCN ---
History of Present Illness History of present illness: HISTORY OF PRESENT ILLNESS: This is a 68-year-old female with a past medical history significant for CHF, large thoracic aortic aneurysm, abdominal aortic aneurysm, coronary artery disease, ischemic cardiomyopathy, hypertension, hyperlipidemia, and diabetes. Patient follows in the office with Dr. Grover. We have been asked to see the patient in consultation for new onset atrial fibrillation. Patient examined at the bedside in the emergency room. Patient states yesterday she got up to go to the bathroom when she became very short of breath. She denied having any chest pain. Patient presented to the hospital for further evaluation. Patient was found to be in atrial fibrillation with RVR. She was started on IV Cardizem. She remains in atrial fibrillation at the time of examination with a heart rate in the 80s. According to our records, the patient does not have a history of atrial fibrillation. However she was at [facility] recently and was started on Eliquis. We will attempt to get records from [facility]. DIAGNOSTICS: - EKG reveals A-fib with RVR - Chest xray negative for acute findings - Laboratory data: WBC 6.7. Hemoglobin 10.8. Platelet count 275. Sodium 144. Potassium 4.4. BUN 24. Creatinine 0.93. Troponin negative x 1. proBNP 7270. TSH 1.580. - Current home cardiac medications include Eliquis 5 mg twice a day, atorvastatin 20 mg daily, Jardiance 10 mg daily, Lasix 40 mg daily, losartan 25 mg daily, metoprolol succinate 25 mg daily - Most recent echocardiogram obtained in October 2023 revealing ejection fraction 30 to 35%, mild to moderate MR, mild TR, moderate pulmonary hypertension REVIEW OF SYSTEMS: At the time of my exam: CONSTITUTIONAL: Denies fever or chills. HEENT: Denies blurred vision, vision changes, or eye pain. Denies hemoptysis CARDIOVASCULAR: Denies chest pain. Denies orthopnea. Denies PND. Denies palpitations RESPIRATORY: Denies shortness of breath. GASTROINTESTINAL: Denies abdominal pain. Denies nausea or vomiting. HEMATOLOGIC: Denies bleeding disorders. GENITOURINARY: Denies any blood in urine. SKIN: Denies pruitis. Denies rash. PHYSICAL EXAM: VITAL SIGNS: Reviewed. GENERAL: Well-developed in no acute distress. HEENT: Head is normocephalic. Pupils are equal, round. Sclerae anicteric. Mucous membranes of the mouth are moist. Neck supple. No JVD or thyromegaly LUNGS: Respirations even and unlabored. Lungs essentially clear to auscultation bilaterally. HEART: Irregular rate and rhythm. S1 and S2 heard. ABDOMEN: Soft. Nondistended. Nontender. EXTREMITIES: Normal range of motion. No clubbing or cyanosis. Peripheral pulses intact. No lower extremity edema NEUROLOGIC: Awake and alert. Oriented x 3. ASSESSMENT: Shortness of breath Atrial fibrillation with RVR, new onset versus persistent, recently started on Eliquis at [facility], awaiting records Acute on chronic heart failure with reduced EF, currently euvolemic Recent hospitalization at [facility] secondary to large thoracic aortic aneurysm and abdominal aortic aneurysm, awaiting records from [facility], apparently not a candidate for surgery or endovascular repair Coronary artery disease with previous CABG, one-vessel per patient, at [facility] Ischemic cardiomyopathy Hypertension Hyperlipidemia Diabetes Former nicotine dependence PLAN: No need to repeat echocardiogram as this was performed in October 2023 Continue anticoagulation with Eliquis Resume home cardiac medications Discontinue IV Lasix as patient is euvolemic upon examination. Resume home dose of oral Lasix Increase metoprolol succinate to 50 mg daily Discontinue IV Cardizem Continue telemetry monitoring Obtain records from [facility] to determine if atrial fibrillation is new. Patient was started on Eliquis recently at [facility]. Unsure if because of atrial fibrillation or other etiology. Further recommendations pending patient course Nurse practitioner note has been reviewed by physician. Signing provider agrees with the documented findings, assessment, and plan of care documented by MACH[employer]KER as a scribe. Past Medical History Past Medical History: Atrial Fibrillation, Asthma, Chest Pain / Angina History of Any Multi-Drug Resistant Organisms: None Reported Past Surgical History: No Surgical Hx Reported Past Psychological History: No Psychological Hx Reported Smoking Status: Former smoker Past Alcohol Use History: None Reported Past Drug Use History: None Reported Medications and Allergies Home Medications Medication Instructions Recorded Confirmed Type Apixaban [Eliquis] 5 mg PO BID 01/16/24 01/16/24 History Atorvastatin [Lipitor] 20 mg PO DAILY 01/16/24 01/16/24 History Empagliflozin [Jardiance] 10 mg PO DAILY 01/16/24 01/16/24 History Furosemide [Lasix] 40 mg PO DAILY 01/16/24 01/16/24 History Losartan [Cozaar] 25 mg PO DAILY 01/16/24 01/16/24 History Metoprolol Succinate (ER) [Toprol 25 mg PO DAILY 01/16/24 01/16/24 History Xl] Nitroglycerin Sl Tabs [Nitrostat] 0.4 mg SUBLINGUAL Q5M PRN 01/16/24 01/16/24 History Allergies Allergy/AdvReac Type Severity Reaction Status Date / Time adhesive Allergy Rash/Hives Verified 01/16/24 09:18 Physical Exam Vitals: Vital Signs Temp Pulse Pulse Resp BP Pulse Ox 01/16/24 09:02 64 18 122/100 100 01/16/24 08:30 74 18 130/84 98 01/16/24 06:53 78 16 111/67 94 L 01/16/24 06:11 87 17 128/66 94 L 01/16/24 05:21 78 22 136/68 96 01/16/24 04:18 116 H 01/16/24 04:11 97.8 F 155 H 35 H 114/97 92 L Intake and Output 01/15/24 01/16/24 01/16/24 22:59 06:59 14:59 Other: Weight 70.307 kg Results 01/16/24 04:15 01/16/24 04:15 Cardiac Enzymes 01/16/24 01/16/24 Range/Units 04:15 04:15 AST 36 (14-36) U/L Troponin I 0.022 (0.000-0.034) ng/mL Coagulation 01/16/24 Range/Units 04:15 PT 15.9 H (10.0-12.5) sec APTT 26.7 (22.0-30.0) sec CBC 01/16/24 Range/Units 04:15 WBC 6.7 (3.8-10.6) k/uL RBC 3.93 (3.80-5.40) m/uL Hgb 10.8 L (11.4-16.0) gm/dL Hct 34.4 (34.0-46.0) % Plt Count 275 (150-450) k/uL Comprehensive Metabolic Panel 01/16/24 Range/Units 04:15 Sodium 144 (137-145) mmol/L Potassium 4.4 (3.5-5.1) mmol/L Chloride 117 H (98-107) mmol/L Carbon Dioxide 16 L (22-30) mmol/L BUN 24 H (7-17) mg/dL Creatinine 0.93 (0.52-1.04) mg/dL Glucose 171 H (74-99) mg/dL Calcium 9.1 (8.4-10.2) mg/dL AST 36 (14-36) U/L ALT 22 (4-34) U/L Alkaline Phosphatase 136 H (38-126) U/L Total Protein 6.9 (6.3-8.2) g/dL Albumin 4.1 (3.5-5.0) g/dL Current Medications Generic Name Dose Route Start Last Admin Trade Name Freq PRN Reason Stop Dose Admin Apixaban 5 mg 01/16/24 09:00 01/16/24 08:34 Apixaban 5 Mg Tab PO 5 mg BID KAREL Administration Protocol Atorvastatin Calcium 20 mg 01/17/24 09:00 Atorvastatin 20 Mg Tab PO DAILY KAREL Metoprolol Succinate 50 mg 01/16/24 09:00 01/16/24 08:34 Metoprolol Succinate (Er) 50 Mg Tab.Er.24h PO 50 mg DAILY KAREL Administration Nitroglycerin 0.4 mg 01/16/24 09:33 Nitroglycerin Sl Tabs 0.4 Mg Tab SUBLINGUAL Q5M PRN Chest Pain Non-Formulary Medication 10 mg 01/17/24 09:00 Empagliflozin [Jardiance] PO DAILY KAREL Sodium Chloride 10 ml 01/16/24 09:00 01/16/24 08:34 Sodium Chloride 0.9% Flush 10 Ml Syringe IV Not Given BID KAREL Intake and Output 01/15/24 01/16/24 01/16/24 22:59 06:59 14:59 Other: Weight 70.307 kg 01/16/24 04:15 01/16/24 04:15
[2024-01-16] MEDS: FAMOTIDINE 20 MG TAB PO SCH (10:21)
[2024-01-16] MEDS: LOSARTAN 25 MG TAB PO SCH (10:21)
[2024-01-16] MEDS: methylPREDNISolone SOD SUCCI 125 MG/2 ML VIAL IV STA (10:21)
[2024-01-16] MEDS: FUROSEMIDE 40 MG TAB PO SCH (10:21)
[2024-01-16] MEDS ORDERED: HYDROCORTISONE 1% CREAM 30 GM TUBE TOPICAL PRN (10:30)
[2024-01-16] MEDS: IPRATROPIUM-ALBUTEROL 3 ML NEB INHALATION PRN (11:09)
[2024-01-16 12:50] LABS: Glucose,Whole Blood 122 mg/dL (70-110)
[2024-01-16] MEDS: INSULIN ASPART (NovoLOG) 100 UNIT/ML VIAL SQ SCH (12:56)
[2024-01-16 17:34] LABS: Glucose,Whole Blood 212 mg/dL (70-110)
[2024-01-16] MEDS: BUDESONIDE 0.5 MG/2 ML NEBU INHALATION SCH (20:45)
[2024-01-17 06:11] LABS: Anisocytosis Slight; Basophils % (A) 0 %; Eosinophils # (A) 0.1 k/uL (0-0.7); Eosinophils % (A) 1 %; HCT 33.7 % (34.0-46.0); HGB 10.7 gm/dL (11.4-16.0); Hypochromasia Moderate; Lymphocytes % (A) 12 %; MCH 27.6 pg (25.0-35.0); MCHC 31.8 g/dL (31.0-37.0); MCV 86.6 fL (80.0-100.0); Mean Platelet Volume 8.9; Monocytes # (A) 0.4 k/uL (0-1.0); Monocytes % (A) 5 %; Neutrophils # (A) 6.9 k/uL (1.3-7.7); Neutrophils % (A) 81 %; Platelet Count 260 k/uL (150-450); RBC 3.89 m/uL (3.80-5.40); RDW 17.8 % (11.5-15.5); WBC 8.5 k/uL (3.8-10.6)
[2024-01-17 06:46] LABS: ALT 19 U/L (4-34); AST 20 U/L (14-36); African American GFR (CKD) 88 (>60 ml/min/1.73 sqM); Albumin 3.8 g/dL (3.5-5.0); Alkaline Phosphatase 110 U/L (38-126); Anion Gap 8 mmol/L; Blood Urea Nitrogen 25 mg/dL (7-17); Calcium 9.1 mg/dL (8.4-10.2); Carbon Dioxide 22 mmol/L (22-30); Chloride 111 mmol/L (98-107); Glucose 123 mg/dL (74-99); Magnesium 1.7 mg/dL (1.6-2.3); Non-African American GFR(CKD) 76 (>60 ml/min/1.73 sqM); Potassium 4.2 mmol/L (3.5-5.1); Sodium 141 mmol/L (137-145); Total Bilirubin 1.2 mg/dL (0.2-1.3); Total Protein 6.7 g/dL (6.3-8.2)
[2024-01-17 07:46] LABS: Glucose,Whole Blood 127 mg/dL (70-110)
[2024-01-17] MEDS: ATORVASTATIN 20 MG TAB PO SCH (08:38)
[2024-01-17] MEDS: DAPAGLIFLOZIN PROPANEDIOL 5 MG TABLET PO SCH (08:38)
[2024-01-17] MEDS: predniSONE 20 MG TAB PO SCH (08:39)
[2024-01-17] MEDS ORDERED: ASPIRIN 325 MG TAB PO SCH (09:00)
[2024-01-17] MEDS ORDERED: guaiFENesin SYRUP 100MG/5ML 200 MG/10 ML CUP PO PRN (09:23)
[2024-01-17 11:22] LABS: Glucose,Whole Blood 122 mg/dL (70-110)
[2024-01-17 12:08] VITALS: BMI 25.7
--- NOTE | 2024-01-17 14:18 | P.PN ---
Subjective Progress Note Date: 01/17/24 68-year-old female came in with complaints of shortness of breath. Found to be in atrial fibrillation was started on Cardizem which is subsequently discontinued and presently on metoprolol patient also takes Eliquis at home. Patient does have history of COPD does not use any oxygen at home. Patient also has congestive heart failure EF of around 30 to 35% but chest x-ray did not show any CHF clinically patient does not appear to be in CHF although patient has barely any air movement. Appears to be in COPD exacerbation. 01/17/2024 Patient is seen in follow-up today with cardiology following. Patient was initially on Cardizem and medications are being adjusted per cardiology. Losartan low-dose, and metoprolol being adjusted. Patient reports she cannot take full-strength aspirin but does take a baby aspirin daily. Patient is afebrile with no reports of worsening shortness of breath reporting to feeling hungry. Patient currently awaiting in the ER for a bed once 1 becomes available. Recommend to continue with telemetry monitoring and patient is stable for [facility]. Review of systems: Constitutional: No reports of fatigue, fever, or chills Cardiovascular: No reports of chest pain or palpitations Respiratory: reports of shortness of breath although feels improved GI: No reports of nausea, vomiting, or diarrhea : No reports of dysuria or retention Neurovascular: No reports of weakness or numbness All other systems are negative except those mentioned in the HPI PHYSICAL EXAMINATION: GENERAL: The patient is alert and oriented x3, not in any acute distress. Well developed, elderly appearing HEENT: Pupils are round and equally reacting to light. EOMI. No scleral icterus. No conjunctival pallor. Normocephalic, atraumatic. No pharyngeal erythema. No thyromegaly. CARDIOVASCULAR: S1 and S2 muffled PULMONARY: Diminished breath sounds bilaterally otherwise clear to auscultation with no wheezing or rhonchi noted ABDOMEN: Soft, nontender, nondistended, normoactive bowel sounds. No palpable organomegaly. MUSCULOSKELETAL: No joint swelling or deformity. EXTREMITIES: No cyanosis, clubbing, or pedal edema. NEUROLOGICAL: Gross neurological examination did not reveal any focal deficits. SKIN: No rashes. Assessment: -Acute hypoxic and hypercapnic respiratory failure secondary to COPD /asthma exacerbation, patient was given a dose of IV steroid, continue prednisone -Paroxysmal atrial fibrillation, presently rate controlled patient is on metoprolol which is being adjusted per cardiology and Eliquis which will be continued. Cardizem discontinued -Congestive failure chronic systolic function without any acute exacerbation at this time continue with oral Lasix that she takes at home -Chronic intermittent asthma -GI prophylaxis -DVT prophylaxis: Patient is on Eliquis due to continued -Full code Plan: Continue with current medication regimen and also cardiology following making adjustments to medication. Patient was having some mild hypotension and losart an being decreased along with metoprolol being adjusted Other home medications reviewed and resumed as appropriate Encourage increase activity as tolerated Continue telemetry monitoring and patient was a hold on 3 S. [facility] Will discuss with cardiology and monitor overnight with possible discharge planning in the next 24 to 48 hours The impression and plan of care has been dictated by Marion Castro, Nurse Practitioner as directed. Dr. Deidre MD I have performed a history and examination and MDM of this patient, discussed the same with the dictator, and agree with the dictator's assessment and plan as written ,documented as a scribe. Based on total visit time, I have performed more than 50% of the visit. Objective - Vital Signs Vital signs: Vital Signs Temp 97.6 F 01/17/24 08:25 Pulse 78 01/17/24 08:34 Resp 16 01/17/24 08:34 BP 102/69 01/17/24 08:25 Pulse Ox 98 01/17/24 08:25 FiO2 - Labs CBC & Chem 7: 01/17/24 05:53 01/17/24 05:53 Labs: Abnormal Lab Results - Last 24 Hours (Table) 01/16/24 01/16/24 01/17/24 Range/Units 12:48 17:34 05:53 Hgb 10.7 L (11.4-16.0) gm/dL Hct 33.7 L (34.0-46.0) % RDW 17.8 H (11.5-15.5) % Chloride (98-107) mmol/L BUN (7-17) mg/dL Glucose (74-99) mg/dL POC Glucose (mg/dL) 122 H 212 H (70-110) mg/dL 01/17/24 01/17/24 Range/Units 05:53 07:45 Hgb (11.4-16.0) gm/dL Hct (34.0-46.0) % RDW (11.5-15.5) % Chloride 111 H (98-107) mmol/L BUN 25 H (7-17) mg/dL Glucose 123 H (74-99) mg/dL POC Glucose (mg/dL) 127 H (70-110) mg/dL
[2024-01-17 16:06] LABS: Glucose,Whole Blood 155 mg/dL (70-110)
--- NOTE | 2024-01-17 19:06 | P.PN ---
Subjective Patient is doing well. She is resting comfortably in bed. She has no chest discomfort dizziness or lightheadedness On examination heart sounds are normal but irregular Breath sounds are clear Impression Atrial fibrillation with RVR, persistent Congestive heart failure, stable euvolemic at this time Coronary artery disease prior CABG Large thoracic and abdominal aortic aneurysm not a candidate for surgery or endovascular repair Ischemic cardiomyopathy Hypertension Dyslipidemia Type 2 diabetes Suggest Continue Eliquis and resume home dose of Lasix Increase the dose of metoprolol succinate to 75 mg p.o. daily Reduce the dose of losartan to 12.5 mg p.o. daily since her blood pressure runs low Rate control of atrial fibrillation Objective - Vital Signs Vital signs: Vital Signs Temp 97.5 F L 01/17/24 12:30 Pulse 110 H 01/17/24 16:00 Resp 18 01/17/24 16:00 BP 109/71 01/17/24 16:00 Pulse Ox 97 01/17/24 16:00 FiO2 Intake & Output 01/17/24 01/17/24 01/18/24 06:59 18:59 06:59 Intake Total 290 Output Total 600 Balance -310 Weight 70.307 kg Intake: Oral 290 Output: Urine 600 Other: Voiding Method External Catheter - Labs CBC & Chem 7: 01/17/24 05:53 01/17/24 05:53 Labs: Abnormal Lab Results - Last 24 Hours (Table) 01/17/24 01/17/24 01/17/24 Range/Units 05:53 05:53 07:45 Hgb 10.7 L (11.4-16.0) gm/dL Hct 33.7 L (34.0-46.0) % RDW 17.8 H (11.5-15.5) % Chloride 111 H (98-107) mmol/L BUN 25 H (7-17) mg/dL Glucose 123 H (74-99) mg/dL POC Glucose (mg/dL) 127 H (70-110) mg/dL 01/17/24 01/17/24 Range/Units 11:20 16:04 Hgb (11.4-16.0) gm/dL Hct (34.0-46.0) % RDW (11.5-15.5) % Chloride (98-107) mmol/L BUN (7-17) mg/dL Glucose (74-99) mg/dL POC Glucose (mg/dL) 122 H 155 H (70-110) mg/dL
[2024-01-17 20:32] LABS: Glucose,Whole Blood 149 mg/dL (70-110)
[2024-01-18 06:09] LABS: Glucose,Whole Blood 146 mg/dL (70-110)
[2024-01-18] MEDS: LOSARTAN 25 MG TAB PO SCH (08:43)
[2024-01-18] MEDS: METOPROLOL SUCCINATE (ER) 25 MG TAB.ER.24H PO SCH (08:43)
[2024-01-18] MEDS ORDERED: LOSARTAN 25 MG TAB PO SCH (09:00)
[2024-01-18] MEDS: METOPROLOL SUCCINATE (ER) 25 MG TAB.ER.24H PO STA (09:53)
[2024-01-18 11:35] LABS: Glucose,Whole Blood 129 mg/dL (70-110)
--- NOTE | 2024-01-18 11:47 | P.PN ---
Subjective HISTORY OF PRESENT ILLNESS: This is a 68-year-old female with a past medical history significant for CHF, large thoracic aortic aneurysm, abdominal aortic aneurysm, coronary artery disease, ischemic cardiomyopathy, hypertension, hyperlipidemia, and diabetes. Patient follows in the office with Dr. Grover. We have been asked to see the patient in consultation for new onset atrial fibrillation. Patient examined at the bedside in the emergency room. Patient states yesterday she got up to go to the bathroom when she became very short of breath. She denied having any chest pain. Patient presented to the hospital for further evaluation. Patient was found to be in atrial fibrillation with RVR. She was started on IV Cardizem. She remains in atrial fibrillation at the time of examination with a heart rate in the 80s. According to our records, the patient does not have a history of atrial fibrillation. However she was at [facility] recently and was started on Eliquis. We will attempt to get records from [facility]. DIAGNOSTICS: - EKG reveals A-fib with RVR - Chest xray negative for acute findings - Laboratory data: WBC 6.7. Hemoglobin 10.8. Platelet count 275. Sodium 144. Potassium 4.4. BUN 24. Creatinine 0.93. Troponin negative x 1. proBNP 7270. TSH 1.580. - Current home cardiac medications include Eliquis 5 mg twice a day, atorvastatin 20 mg daily, Jardiance 10 mg daily, Lasix 40 mg daily, losartan 25 mg daily, metoprolol succinate 25 mg daily - Most recent echocardiogram obtained in October 2023 revealing ejection fraction 30 to 35%, mild to moderate MR, mild TR, moderate pulmonary hype rtension 01/18/2024 Patient examined this morning at the bedside. Patient currently denies chest p ain or pressure. She denies shortness of breath. Telemetry reveals atrial fibrillation with a heart rate around 100. PHYSICAL EXAM: VITAL SIGNS: Reviewed. GENERAL: Well-developed in no acute distress. HEENT: Head is normocephalic. Pupils are equal, round. Sclerae anicteric. Mucous membranes of the mouth are moist. Neck supple. No JVD or thyromegaly LUNGS: Respirations even and unlabored. Lungs essentially clear to auscultation bilaterally. HEART: Irregular rate and rhythm. S1 and S2 heard. ABDOMEN: Soft. Nondistended. Nontender. EXTREMITIES: Normal range of motion. No clubbing or cyanosis. Peripheral pulses intact. No lower extremity edema NEUROLOGIC: Awake and alert. Oriented x 3. ASSESSMENT: Shortness of breath Atrial fibrillation with RVR, new onset versus persistent, recently started on Eliquis at [facility], awaiting records Acute on chronic heart failure with reduced EF, currently euvolemic Recent hospitalization at [facility] secondary to large thoracic aortic aneurysm and abdominal aortic aneurysm, awaiting records from [facility], apparently not a candidate for surgery or endovascular repair Coronary artery disease with previous CABG, one-vessel per patient, at [facility] Ischemic cardiomyopathy Hypertension Hyperlipidemia Diabetes Former nicotine dependence PLAN: No need to repeat echocardiogram as this was performed in October 2023 Continue anticoagulation with Eliquis Discontinue losartan as blood pressures are on the lower side Increase metoprolol succinate to 100 mg daily If needed, will add digoxin for rate control Continue telemetry monitoring Still awaiting records from [facility] to determine if atrial fibrillation is new. Patient was started on Eliquis recently at [facility]. Unsure if because of atrial fibrillation or other etiology. Further recommendations pending patient course Nurse practitioner note has been reviewed by physician. Signing provider agrees with the documented findings, assessment, and plan of care documented by J[employer]ITORIAL CLE[employer]ER as a scribe. Objective - Vital Signs Vital signs: Vital Signs Temp 97.6 F 01/18/24 11:14 Pulse 85 01/18/24 11:14 Resp 16 01/18/24 11:14 BP 106/70 01/18/24 11:14 Pulse Ox 92 L 01/18/24 11:14 FiO2 Intake & Output 01/17/24 01/18/24 01/18/24 18:59 06:59 18:59 Intake Total 290 240 110 Output Total 600 400 Balance -310 -160 110 Weight 70.307 kg 70.4 kg Intake: Oral 290 240 110 Output: Urine 600 400 Other: Voiding Method External Catheter External Catheter External Catheter # Voids 1 1 - Labs CBC & Chem 7: 01/17/24 05:53 01/17/24 05:53 Labs: Abnormal Lab Results - Last 24 Hours (Table) 01/17/24 01/17/24 01/18/24 Range/Units 16:04 20:30 06:07 POC Glucose (mg/dL) 155 H 149 H 146 H (70-110) mg/dL 01/18/24 Range/Units 11:21 POC Glucose (mg/dL) 129 H (70-110) mg/dL
[2024-01-18 16:17] LABS: Glucose,Whole Blood 164 mg/dL (70-110)
[2024-01-18 20:50] LABS: Glucose,Whole Blood 165 mg/dL (70-110)
[2024-01-19 04:20] VITALS: RESP 16; TEMP 97.8
[2024-01-19 06:04] LABS: Glucose,Whole Blood 131 mg/dL (70-110)
--- NOTE | 2024-01-19 06:18 | P.PN ---
Subjective Progress Note Date: 01/18/24 68-year-old female came in with complaints of shortness of breath. Found to be in atrial fibrillation was started on Cardizem which is subsequently discontinued and presently on metoprolol patient also takes Eliquis at home. Patient does have history of COPD does not use any oxygen at home. Patient also has congestive heart failure EF of around 30 to 35% but chest x-ray did not show any CHF clinically patient does not appear to be in CHF although patient has barely any air movement. Appears to be in COPD exacerbation. 01/17/2024 Patient is seen in follow-up today with cardiology following. Patient was initially on Cardizem and medications are being adjusted per cardiology. Losartan low-dose, and metoprolol being adjusted. Patient reports she cannot take full-strength aspirin but does take a baby aspirin daily. Patient is afebrile with no reports of worsening shortness of breath reporting to feeling hungry. Patient currently awaiting in the ER for a bed once 1 becomes available. Recommend to continue with telemetry monitoring and patient is stable for [facility]. 01/18/2024 Patient is seen in follow-up today with cardiology following making adjustments to medications. Losartan has been discontinued as blood pressures remain soft and metoprolol being increased recommend monitoring overnight with possible discharge planning in the next 24 hours. Patient is afebrile with no reports of chest pain or shortness of breath. Patient is tolerating diet with no reported nausea or vomiting. Review of systems: Constitutional: No reports of fatigue, fever, or chills Cardiovascular: No reports of chest pain or palpitations Respiratory: reports of shortness of breath although feels improved GI: No reports of nausea, vomiting, or diarrhea : No reports of dysuria or retention Neurovascular: No reports of weakness or numbness All other systems are negative except those mentioned in the HPI PHYSICAL EXAMINATION: GENERAL: The patient is alert and oriented x3, not in any acute distress. Well developed, elderly appearing HEENT: Pupils are round and equally reacting to light. EOMI. No scleral icterus. No conjunctival pallor. Normocephalic, atraumatic. No pharyngeal erythema. No thyromegaly. CARDIOVASCULAR: S1 and S2 muffled PULMONARY: Diminished breath sounds bilaterally otherwise clear to auscultation with no wheezing or rhonchi noted ABDOMEN: Soft, nontender, nondistended, normoactive bowel sounds. No palpable organomegaly. MUSCULOSKELETAL: No joint swelling or deformity. EXTREMITIES: No cyanosis, clubbing, or pedal edema. NEUROLOGICAL: Gross neurological examination did not reveal any focal deficits. SKIN: No rashes. Assessment: -Acute hypoxic and hypercapnic respiratory failure secondary to COPD /asthma exacerbation, patient was given a dose of IV steroid, continue prednisone -Paroxysmal atrial fibrillation, presently rate controlled patient is on metoprolol which is being adjusted per cardiology and Eliquis which will be continued. Cardizem discontinued -Congestive failure chronic systolic function without any acute exacerbation at this time continue with oral Lasix that she takes at home -Chronic intermittent asthma -GI prophylaxis -DVT prophylaxis: Patient is on Eliquis due to continued -Full code Plan: Continue with current medication regimen and also cardiology following making adjustments to medication. Patient continues to have some mild hypotension and losartan being discontinued. Metoprolol being increased and will monitor overnight Encourage increase activity as tolerated Continue telemetry monitoring and patient was a hold on 3 S. although will transition to [facility] with telemetry Will discuss with cardiology and monitor overnight with possible discharge planning in the next 24 hours The impression and plan of care has been dictated by Marion Castro, Nurse Practitioner as directed. Dr. Deidre MD I have performed a history and examination and MDM of this patient, discussed the same with the dictator, and agree with the dictator's assessment and plan as written ,documented as a scribe. Based on total visit time, I have performed more than 50% of the visit. Objective - Vital Signs Vital signs: Vital Signs Temp 97.8 F 01/19/24 04:18 Pulse 88 01/19/24 04:18 Resp 16 01/19/24 04:18 BP 131/79 01/19/24 04:18 Pulse Ox 95 01/19/24 04:18 FiO2 Intake & Output 01/18/24 01/18/24 01/19/24 06:59 18:59 06:59 Intake Total 240 332 240 Output Total 400 500 Balance -160 -168 240 Weight 70.4 kg 70.2 kg Intake: Oral 240 332 240 Output: Urine 400 500 Other: Voiding Method External Catheter External Catheter Toilet # Voids 1 3 1 # Bowel Movements 0 - Labs CBC & Chem 7: 01/17/24 05:53 12/09/24 05:53 Labs: Abnormal Lab Results - Last 24 Hours (Table) 01/18/24 01/18/24 01/18/24 Range/Units 06:07 11:21 16:14 POC Glucose (mg/dL) 146 H 129 H 164 H (70-110) mg/dL 01/18/24 Range/Units 20:49 POC Glucose (mg/dL) 165 H (70-110) mg/dL
[2024-01-19 08:20] LABS: African American GFR (CKD) 84 (>60 ml/min/1.73 sqM); Anion Gap 11 mmol/L; Blood Urea Nitrogen 33 mg/dL (7-17); Calcium 9.5 mg/dL (8.4-10.2); Carbon Dioxide 22 mmol/L (22-30); Chloride 109 mmol/L (98-107); Glucose 102 mg/dL (74-99); Magnesium 1.8 mg/dL (1.6-2.3); Non-African American GFR(CKD) 73 (>60 ml/min/1.73 sqM); Potassium 4.5 mmol/L (3.5-5.1); Sodium 142 mmol/L (137-145)
[2024-01-19] MEDS: METOPROLOL SUCCINATE (ER) 100 MG TAB.ER.24H PO SCH (09:08)
[2024-01-19 11:36] LABS: Glucose,Whole Blood 159 mg/dL (70-110)
--- NOTE | 2024-01-19 11:57 | P.PN ---
Subjective HISTORY OF PRESENT ILLNESS: This is a 68-year-old female with a past medical history significant for CHF, large thoracic aortic aneurysm, abdominal aortic aneurysm, coronary artery disease, ischemic cardiomyopathy, hypertension, hyperlipidemia, and diabetes. Patient follows in the office with Dr. Grover. We have been asked to see the patient in consultation for new onset atrial fibrillation. Patient examined at the bedside in the emergency room. Patient states yesterday she got up to go to the bathroom when she became very short of breath. She denied having any chest pain. Patient presented to the hospital for further evaluation. Patient was found to be in atrial fibrillation with RVR. She was started on IV Cardizem. She remains in atrial fibrillation at the time of examination with a heart rate in the 80s. According to our records, the patient does not have a history of atrial fibrillation. However she was at [facility] recently and was started on Eliquis. We will attempt to get records from [facility]. DIAGNOSTICS: - EKG reveals A-fib with RVR - Chest xray negative for acute findings - Laboratory data: WBC 6.7. Hemoglobin 10.8. Platelet count 275. Sodium 144. Potassium 4.4. BUN 24. Creatinine 0.93. Troponin negative x 1. proBNP 7270. TSH 1.580. - Current home cardiac medications include Eliquis 5 mg twice a day, atorvastatin 20 mg daily, Jardiance 10 mg daily, Lasix 40 mg daily, losartan 25 mg daily, metoprolol succinate 25 mg daily - Most recent echocardiogram obtained in October 2023 revealing ejection fraction 30 to 35%, mild to moderate MR, mild TR, moderate pulmonary hype rtension 01/18/2024 Patient examined this morning at the bedside. Patient currently denies chest p ain or pressure. She denies shortness of breath. Telemetry reveals atrial fibrillation with a heart rate around 100. 01/19/2024 Patient examined this morning at bedside. Patient currently denies chest pain or pressure. She denies shortness of breath. Telemetry reveals atrial fibrillation with controlled ventricular rates. Blood pressure stable. PHYSICAL EXAM: VITAL SIGNS: Reviewed. GENERAL: Well-developed in no acute distress. HEENT: Head is normocephalic. Pupils are equal, round. Sclerae anicteric. Mucous membranes of the mouth are moist. Neck supple. No JVD or thyromegaly LUNGS: Respirations even and unlabored. Lungs essentially clear to auscultation bilaterally. HEART: Irregular rate and rhythm. S1 and S2 heard. ABDOMEN: Soft. Nondistended. Nontender. EXTREMITIES: Normal range of motion. No clubbing or cyanosis. Peripheral pulses intact. No lower extremity edema NEUROLOGIC: Awake and alert. Oriented x 3. ASSESSMENT: Shortness of breath Atrial fibrillation with RVR, new onset versus persistent, recently started on Eliquis at [facility], awaiting records Acute on chronic heart failure with reduced EF, currently euvolemic Recent hospitalization at [facility] secondary to large thoracic aortic aneurysm and abdominal aortic aneurysm, awaiting records from [facility], apparently not a candidate for surgery or endovascular repair Coronary artery disease with previous CABG, one-vessel per patient, at [facility] Ischemic cardiomyopathy Hypertension Hyperlipidemia Diabetes Former nicotine dependence PLAN: No need to repeat echocardiogram as this was performed in October 2023 Continue anticoagulation with Eliquis Losartan discontinued yesterday secondary to soft blood pressures Continue additional cardiac medications Patient may be discharged home today from a cardiac standpoint We will sign off. Please reconsult if needed. Nurse practitioner note has been reviewed by physician. Signing provider agrees with the documented findings, assessment, and plan of care documented by RESEARCH COORDINATOR as a scribe. Objective - Vital Signs Vital signs: Vital Signs Temp 97.8 F 01/19/24 04:18 Pulse 56 L 01/19/24 09:05 Resp 16 01/19/24 09:05 BP 92/52 01/19/24 08:00 Pulse Ox 95 01/19/24 08:56 FiO2 Intake & Output 01/18/24 01/19/24 01/19/24 18:59 06:59 18:59 Intake Total 332 240 118 Output Total 500 Balance -168 240 118 Weight 70.2 kg 70.2 kg Intake: Oral 332 240 118 Output: Urine 500 Other: Voiding Method External Catheter Toilet Toilet # Voids 3 1 # Bowel Movements 0 - Labs CBC & Chem 7: 01/17/24 05:53 01/19/24 06:46 Labs: Abnormal Lab Results - Last 24 Hours (Table) 01/18/24 01/18/24 01/19/24 Range/Units 16:14 20:49 05:59 Chloride (98-107) mmol/L BUN (7-17) mg/dL Glucose (74-99) mg/dL POC Glucose (mg/dL) 164 H 165 H 131 H (70-110) mg/dL 01/19/24 01/19/24 Range/Units 06:46 11:33 Chloride 109 H (98-107) mmol/L BUN 33 H (7-17) mg/dL Glucose 102 H (74-99) mg/dL POC Glucose (mg/dL) 159 H (70-110) mg/dL
[2024-01-19 12:18] VITALS: BP 102/58; PULSE 103
--- NOTE | 2024-01-20 19:06 | CDI ---
Documentation Clarification Form Date: 01/20/2024 06:49:54 PM From: Hattie Castillo Phone: Admit Date: 01/16/2024 06:20:00 AM Patient Name: Ruba Iyer Visit Number: [id number] Discharge Date: 01/19/2024 03:20:00 PM ATTENTION: The Clinical Documentation Specialists (CDI) and [facility] Coding Staff appreciate your assistance in clarifying documentation. Please respond to the clarification below the line at the bottom and electronically sign. The CDI & [facility] Coding staff will review the response and follow-up if needed. Please note: Queries are made part of the Legal Health Record. If you have any questions, please contact the author of this message via ITS. Doctor/Provider: Dao Jiang Your patient has an abnormal lab value: glucose 212. Please clarify if there is an additional diagnosis and/or clinical significance related to this value. History/Risk Factors: 68yo F, PAF, ACSHF, TAA & AAA, CAD, ISM, HTN, HLD, DMII, former smoker Clinical indicators: glucose 122-212 Treatment: Home meds- Empagliflozin [Jardiance] 10 mg PO DAILY Is there an additional diagnosis and/or clinical significance related to the above lab result/information? [ x] Diabetes Type 2 with hyperglycemia [ ] Diabetes Type 2 no complications [ ] No additional diagnosis/Not clinically significant [ ] Other, please specify [ ] Unable to determine (Template Last Revised: March 2020) MTDD
--- NOTE | 2024-01-21 12:16 | P.DS ---
Providers Date of admission: 01/16/24 06:20 Expected date of discharge: 01/19/24 Attending physician: Elizabet Gongora Consults: 01/16/24 06:20 Consult Physician Routine Consulting Provider: Yaquelin Tellez Consult Reason/Comments: Atrial fibrillation with rapid ventricular rate Do you want consulting provider notified?: Yes Primary care physician: Lorenza Christopher Hospital Course: Final diagnosis -Acute hypoxic and hypercapnic respiratory failure secondary to COPD /asthma exacerbation -Paroxysmal atrial fibrillation, presently rate controlled -Congestive failure chronic systolic function without any acute exacerbation at this time continue with oral Lasix that she takes at home -History of chronic intermittent asthma -GI prophylaxis -DVT prophylaxis: Patient is on Eliquis due to continued -Full code Discharge disposition Patient is being discharged in a stable condition with guarded prognosis to home. Patient will follow-up with Dr. Devin Gongora in the outpatient setting upon discharge. Patient is to continue with current medications and outpatient follow-up with cardiology as scheduled. Total time taken is greater than 35 minutes. Hospital course This is a 68-year-old female who was recently admitted with acute hypoxic respiratory failure with concerns of possible CHF versus COPD exacerbation. Patient with some expiratory wheezing given a steroid in the ER and started on a prednisone taper along with breathing treatments and inhalers. Patient evaluated by cardiology making adjustments to medications including increasing metoprolol and has placed losartan on hold as patient was having lower blood pressure readings. Patient rate controlled and blood pressure stable has been cleared by cardiology for outpatient follow-up. Patient will continue a quick prednisone taper and was also provided an inhaler recommend to follow-up with primary care provider and if needed pulmonary as well as cardiology outpatient in 1 to 2 weeks. Please refer to other consultation notes for further HPI. Currently no reports of chest pain, shortness of breath, or palpitations. Patient is afebrile. No reports of nausea or vomiting and patient is tolerating diet. Patient will be discharged home today. Physical exam: Gen: This is a 68-year-old female who is awake, alert and oriented x 3, thin built, elderly appearing HEENT: Head is atraumatic, normocephalic. Pupils equal, round. Sclerae is anicteric. NECK: Supple. No JVD. No lymphadenopathy. No thyromegaly. LUNGS: Diminished breath sounds bilaterally otherwise clear to auscultation. Faint occasional expiratory wheezes noted. No intercostal retractions. HEART: S1, S2 are muffled, rate controlled on telemetry ABDOMEN: Soft. Bowel sounds are present. No masses. No tenderness. EXTREMITIES: No pedal edema. No calf tenderness. NEUROLOGICAL: Patient is awake, alert and oriented x3. Cranial nerves 2 through 12 are grossly intact. Please refer to medication reconciliation sheet for a list of medications. The impression and plan of care has been dictated by Marion Castro, Nurse Practitioner as directed. Dr. Deidre MD I have performed a history and examination and MDM of this patient, discussed the same with the dictator, and agree with the dictator's assessment and plan as written ,documented as a scribe. Based on total visit time, I have performed more than 50% of the visit. Patient Condition at Discharge: Fair Plan - Discharge Summary Discharge Rx Participant: No New Discharge Prescriptions: New Dapagliflozin Propanediol [Farxiga] 5 mg PO DAILY #30 tab Hydrocortisone Cream [Hydrocortisone 1% Cream] 1 applic TOPICAL BID PRN each PRN Reason: Skin Irritation predniSONE See Taper PO DIRECTED #30 tab Budesonide-Formot 160-4.5 Mcg [Symbicort 160-4.5 Mcg Inhaler] 2 puff INHALATION BID #10.2 gm Metoprolol Succinate (ER) [Toprol XL] 100 mg PO DAILY #30 tab Continue Nitroglycerin Sl Tabs [Nitrostat] 0.4 mg SUBLINGUAL Q5M PRN PRN Reason: Chest Pain Atorvastatin [Lipitor] 20 mg PO DAILY Furosemide [Lasix] 40 mg PO DAILY Apixaban [Eliquis] 5 mg PO BID Discontinued Metoprolol Succinate (ER) [Toprol Xl] 25 mg PO DAILY Losartan [Cozaar] 25 mg PO DAILY Empagliflozin [Jardiance] 10 mg PO DAILY Discharge Medication List Apixaban [Eliquis] 5 mg PO BID 01/16/24 [History] Atorvastatin [Lipitor] 20 mg PO DAILY 01/16/24 [History] Furosemide [Lasix] 40 mg PO DAILY 01/16/24 [History] Nitroglycerin Sl Tabs [Nitrostat] 0.4 mg SUBLINGUAL Q5M PRN 01/16/24 [History] Budesonide-Formot 160-4.5 Mcg [Symbicort 160-4.5 Mcg Inhaler] 2 puff INHALATION BID #10.2 gm 01/19/24 [Rx] Dapagliflozin Propanediol [Farxiga] 5 mg PO DAILY #30 tab 01/19/24 [Rx] Hydrocortisone Cream [Hydrocortisone 1% Cream] 1 applic TOPICAL BID PRN each 01/19/24 [Rx] Metoprolol Succinate (ER) [Toprol XL] 100 mg PO DAILY #30 tab 01/19/24 [Rx] predniSONE See Taper PO DIRECTED #30 tab 01/19/24 [Rx] Follow up Appointment(s)/Referral(s): Jeromy Celestin MD [Medical Doctor] - 1 Week Lorenza Christopher MD [Primary Care Provider] - 1-2 days Patient Instructions/Handouts: A-fib (Atrial Fibrillation) (DC) Activity/Diet/Wound Care/Special Instructions: Activity limited until follow-up Follow-up with primary care provider on discharge Follow-up with cardiology outpatient Continue taking medications as prescribed Discharge Disposition: HOME SELF-CARE
== END 2024-01-19 15:20 | disposition home or self-care (01) | DRG 291 ==
LOC: EC 04:08 → 3SCARD 06:20
PROVIDERS: ADMIT Hospitalist; ATTEND Hospitalist
DX: I11.0 Hypertensive heart disease with heart failure (principal); I50.23 Acute on chronic systolic (congestive) heart failure; J96.02 Acute respiratory failure with hypercapnia; J96.01 Acute respiratory failure with hypoxia; J44.1 Chronic obstructive pulmonary disease with (acute) exacerbation; J45.21 Mild intermittent asthma with (acute) exacerbation; I27.22 Pulmonary hypertension due to left heart disease; Z79.01 Long term (current) use of anticoagulants; Z95.1 Presence of aortocoronary bypass graft; I71.40 Abdominal aortic aneurysm, without rupture, unspecified; I71.20 Thoracic aortic aneurysm, without rupture, unspecified; I08.1 Rheumatic disorders of both mitral and tricuspid valves; E11.65 Type 2 diabetes mellitus with hyperglycemia; I48.0 Paroxysmal atrial fibrillation; I25.10 Atherosclerotic heart disease of native coronary artery without angina pectoris; T38.0X5A Adverse effect of glucocorticoids and synthetic analogues, initial encounter; I25.5 Ischemic cardiomyopathy; E78.5 Hyperlipidemia, unspecified; Z87.891 Personal history of nicotine dependence; Z79.84 Long term (current) use of oral hypoglycemic drugs; Z79.899 Other long term (current) drug therapy; Z79.82 Long term (current) use of aspirin; Z79.51 Long term (current) use of inhaled steroids
CPT/HCPCS: 36415; 51798; 71046; 80048; 80053; 83605; 83735; 83880; 84443; 84484; 85025; 85610; 85730; 93005; 94640; 94760; 96365; 96366; 96375; 99285

== ENCOUNTER 2024-02-06 12:48 | Inpatient (IN) | payer MEDICARE ==
--- NOTE | 2024-02-06 13:04 | ED ---
General Adult HPI - General Chief complaint: Chest Pain Stated complaint: Cardiac pain Source: EMS Mode of arrival: EMS Limitations: no limitations - History of Present Illness Initial comments: Dictation was produced using [employer] dictation software. please excuse any grammatical, word or spelling errors. Chief Complaint: 68-year-old female presents emergency department with external defibrillator alert History of Present Illness: Patient 68-year-old female she allegedly has a cyst on her heart. She wears an external defibrillator. She was at [facility] today when her external defibrillator was beeping saying that patient was unresponsive. Patient denies any symptoms. States that her defibrillator then try to shocker. EMS was called patient was brought to the ER. Patient states she is never she does not complain of any chest pain or shortness of breath. She was admitted to the hospital earlier this month for A-fib RVR, heart failure and aneurysm The ROS documented in this emergency department record has been reviewed and confirmed by me. Those systems with pertinent positive or negative responses have been documented in the HPI. All other systems are other negative and/or noncontributory. - Related Data Home Medications Medication Instructions Recorded Confirmed Apixaban [Eliquis] 5 mg PO BID 01/16/24 02/06/24 Atorvastatin [Lipitor] 20 mg PO DAILY 01/16/24 02/06/24 Furosemide [Lasix] 40 mg PO DAILY 01/16/24 02/06/24 Nitroglycerin Sl Tabs [Nitrostat] 0.4 mg SUBLINGUAL Q5M PRN 01/16/24 02/06/24 Budesonide-Formot 160-4.5 Mcg 2 puff INHALATION RT-BID 02/06/24 02/06/24 [Symbicort 160-4.5 Mcg Inhaler] Previous Rx's Medication Instructions Recorded Dapagliflozin Propanediol [Farxiga] 5 mg PO DAILY #30 tab 01/19/24 Metoprolol Succinate (ER) [Toprol 100 mg PO DAILY #30 tab 01/19/24 XL] Allergies Allergy/AdvReac Type Severity Reaction Status Date / Time adhesive Allergy Rash/Hives Verified 02/06/24 14:20 Review of Systems ROS Statement: Those systems with pertinent positive or pertinent negative responses have been documented in the HPI. ROS Other: All systems not noted in ROS Statement are negative. Past Medical History Past Medical History: Atrial Fibrillation, Asthma, Chest Pain / Angina History of Any Multi-Drug Resistant Organisms: None Reported Past Surgical History: No Surgical Hx Reported Additional Past Surgical History / Comment(s): "open heart surgery" Past Anesthesia/Blood Transfusion Reactions: No Reported Reaction Past Psychological History: No Psychological Hx Reported Smoking Status: Former smoker Past Alcohol Use History: None Reported Past Drug Use History: None Reported General Exam - General Exam Comments Initial Comments: PHYSICAL EXAM: General Impression: Alert and oriented x3, not in acute distress HEENT: Normocephalic atraumatic, extra-ocular movements intact, pupils equal and reactive to light bilaterally, mucous membranes moist. Cardiovascular: Heart regular rate and rhythm Chest: Able to complete full sentences, no retractions, no tachypnea Abdomen: abdomen soft, non-tender, non-distended, no organomegaly Musculoskeletal: Pulses present and equal in all extremities, no peripheral edema Motor: no focal deficits noted Neurological: CN II-XII grossly intact, no focal motor or sensory deficits noted Skin: Intact with no visualized rashes Psych: Normal affect and mood Limitations: no limitations Course Vital Signs 02/06/24 02/06/24 02/06/24 12:50 13:01 14:30 Temperature 97.3 F L Pulse Rate 124 H 84 68 Respiratory 30 H 20 20 Rate Blood Pressure 120/68 108/92 115/70 O2 Sat by Pulse 93 L 99 99 Oximetry 02/06/24 15:29 Temperature Pulse Rate 75 Respiratory 20 Rate Blood Pressure 132/98 O2 Sat by Pulse 99 Oximetry - Reevaluation(s) Reevaluation #1: 02/06/24 13:00 EKG was reviewed and appeared to show ventricular tachycardia. By the time patient arrived she was in A-fib with quit rate control. No distress has no complaints at the bedside. EKG Findings - EKG Comments: EKG Findings:: My EKG interpretation: Ventricular rate 116, A-fib with RVR, cures 153, QTc 441. No QTC prolongation, no ST or T-wave changes noted. EKG compared to 2023 showing no changes. Overall, this EKG is unremarkable Medical Decision Making - Medical Decision Making Was pt. sent in by a medical professional or institution (, PA, AQUA AMMONIA OPERATOR, urgent care, hospital, or [facility]...) When possible be specific @ -No Did you speak to anyone other than the patient for history (EMS, parent, family, police, friend...)? What history was obtained from this source @ -No Did you review nursing and triage notes (agree or disagree)? Why? @ -I reviewed and agree with nursing and triage notes Were old charts reviewed (outside hosp., previous admission, EMS record, old EKG, old radiological studies, urgent care reports/EKG's, [facility] records)? Report findings @ -No old charts were reviewed Differential Diagnosis (chest pain, altered mental status, abdominal pain women, abdominal pain men, vaginal bleeding, musculoskeletal, weakness, fever, dyspnea, syncope, headache, dizziness, GI bleed, back pain, seizure, CVA, palpatations, mental health)? @ - Differential Palpitations: Ventricular arrhythmias, atrial arrhythmias, myocardial infarction, anemia, thyrotoxicosis, electrolyte imbalance, hypokalemia, pulmonary embolism, pulmonary disease, drugs, alcohol, anxiety, stress.... This is not meant to be an all-inclusive list. EKG interpreted by me (3pts min.). @ -As above X-rays interpreted by me (1pt min.). @ -Chest x-ray is nonacute CT interpreted by me (1pt min.). @ -None done U/S interpreted by me (1pt. min.). @ -None done What testing was considered but not performed or refused? (CT, X-rays, U/S, labs)? Why? @ -None What meds were considered but not given or refused? Why? @ -None Was smoking cessation discussed for >3mins.? @ -No Were there social determinants of health that impacted care today? How? (Homelessness, low income, unemployed, alcoholism, drug addiction, transportati on, low edu. Level, literacy, decrease access to med. care, half-way, rehab)? @ -No Was there de-escalation of care discussed even if they declined (Discuss DNR or withdrawal of care, Hospice)? DNR status @ -No What co-morbidities impacted this encounter? (DM, HTN, Smoking, COPD, CAD, Cancer, CVA, ARF, Chemo, Hep., AIDS, mental health diagnosis, sleep apnea, morbid obesity)? @ -Cardiomyopathy Was patient admitted / discharged? Hospital course, mention meds given and route, prescriptions, significant lab abnormalities, going to OR and other pertinent info. @ -60-year-old female with cardiomyopathy wears external defibrillator presents to the ER for defibrillator alarming. Vital signs are stable. Patient had prehospital EKG that showed V. tach versus A-fib with abberency. By the time patient arrived to the department her heart was improved. Patient well- appearing did not complain of any chest pain shortness of breath or any symptoms whatsoever. Laboratory evaluation is unremarkable. X-ray is nonacute. Patient will be admitted with consultation to cardiology. Did you discuss the management of the patient with other professionals (professionals i.e. , PA, AQUA AMMONIA OPERATOR, lab, RT, psych nurse, nephrology social worker, crane crew supervisor, teacher, philanthropy officer, nurse case manager)? Give summary @ -Case discussed with hospitalist for admission Was critical care preformed (if so, how long)? @ -yes, 33 minutes due to prehospital EKG concerning for wide-complex tachydysrhythmia Undiagnosed new problem with uncertain prognosis? @ -No Drug Therapy requiring intensive monitoring for toxicity (Heparin, Nitro, In sulin, Cardizem)? @ -No Were any procedures done? @ -No Diagnosis/symptom? Acute, or Chronic, or Acute on Chronic? Uncomplicated (without systemic symptoms) or Complicated (systemic symptoms)? @ -Tachydysrhythmia Side effects of treatment? @ -No Exacerbation, Progression, or Severe Exacerbation? @ -No Poses a threat to life or bodily function? How? (Chest pain, [place], [place], pneumonia, PE, COPD, DKA, ARF, appy, cholecystitis, CVA, Diverticulitis, Homicidal, Suicidal, threat to staff... and all critical care pts) @ -yes - Lab Data Result diagrams: 02/06/24 12:56 02/06/24 12:56 Lab Results 02/06/24 02/06/24 02/06/24 Range/Units 12:56 12:56 12:56 WBC 9.4 (3.8-10.6) k/uL RBC 4.36 (3.80-5.40) m/uL Hgb 12.4 (11.4-16.0) gm/dL Hct 39.2 (34.0-46.0) % MCV 90.0 (80.0-100.0) fL MCH 28.4 (25.0-35.0) pg MCHC 31.6 (31.0-37.0) g/dL RDW 17.1 H (11.5-15.5) % Plt Count 161 (150-450) k/uL MPV 9.9 Neutrophils % 66 % Lymphocytes % 26 % Monocytes % 4 % Eosinophils % 0 % Basophils % 1 % Neutrophils # 6.2 (1.3-7.7) k/uL Lymphocytes # 2.5 (1.0-4.8) k/uL Monocytes # 0.4 (0-1.0) k/uL Eosinophils # 0.0 (0-0.7) k/uL Basophils # 0.1 (0-0.2) k/uL Hypochromasia Marked Anisocytosis Slight PT (10.0-12.5) sec INR (<1.2) APTT (22.0-30.0) sec Sodium 143 (137-145) mmol/L Potassium 3.3 L (3.5-5.1) mmol/L Chloride 108 H (98-107) mmol/L Carbon Dioxide 13 L (22-30) mmol/L Anion Gap 22 mmol/L BUN 19 H (7-17) mg/dL Creatinine 0.91 (0.52-1.04) mg/dL Est GFR (CKD-EPI)AfAm 75 (>60 ml/min/1.73 sqM) Est GFR (CKD-EPI)NonAf 65 (>60 ml/min/1.73 sqM) Glucose 230 H (74-99) mg/dL Calcium 9.0 (8.4-10.2) mg/dL Magnesium 1.7 (1.6-2.3) mg/dL Total Bilirubin 1.2 (0.2-1.3) mg/dL AST 32 (14-36) U/L ALT 25 (4-34) U/L Alkaline Phosphatase 95 (38-126) U/L Troponin I 0.018 (0.000-0.034) ng/mL Total Protein 6.5 (6.3-8.2) g/dL Albumin 4.2 (3.5-5.0) g/dL 02/06/24 Range/Units 14:10 WBC (3.8-10.6) k/uL RBC (3.80-5.40) m/uL Hgb (11.4-16.0) gm/dL Hct (34.0-46.0) % MCV (80.0-100.0) fL MCH (25.0-35.0) pg MCHC (31.0-37.0) g/dL RDW (11.5-15.5) % Plt Count (150-450) k/uL MPV Neutrophils % % Lymphocytes % % Monocytes % % Eosinophils % % Basophils % % Neutrophils # (1.3-7.7) k/uL Lymphocytes # (1.0-4.8) k/uL Monocytes # (0-1.0) k/uL Eosinophils # (0-0.7) k/uL Basophils # (0-0.2) k/uL Hypochromasia Anisocytosis PT 12.2 (10.0-12.5) sec INR 1.1 (<1.2) APTT 21.3 L (22.0-30.0) sec Sodium (137-145) mmol/L Potassium (3.5-5.1) mmol/L Chloride (98-107) mmol/L Carbon Dioxide (22-30) mmol/L Anion Gap mmol/L BUN (7-17) mg/dL Creatinine (0.52-1.04) mg/dL Est GFR (CKD-EPI)AfAm (>60 ml/min/1.73 sqM) Est GFR (CKD-EPI)NonAf (>60 ml/min/1.73 sqM) Glucose (74-99) mg/dL Calcium (8.4-10.2) mg/dL Magnesium (1.6-2.3) mg/dL Total Bilirubin (0.2-1.3) mg/dL AST (14-36) U/L ALT (4-34) U/L Alkaline Phosphatase (38-126) U/L Troponin I (0.000-0.034) ng/mL Total Protein (6.3-8.2) g/dL Albumin (3.5-5.0) g/dL Disposition Clinical Impression: Dysrhythmia Disposition: ADMITTED IP TO THIS [facility] Condition: Fair Referrals: Lorenza Christopher MD [Primary Care Provider] - 1-2 days Decision Time: 15:33
--- NOTE | 2024-02-06 13:27 | XR ---
EXAMINATION TYPE: XR chest 1V portable DATE OF EXAM: 02/06/2024 1:07 PM COMPARISON: Chest radiographs from01/16/2024 CLINICAL INDICATION: Female, 68 years old with history of dysrhythmia; TECHNIQUE: XR chest 1V portable Frontal view of the chest. FINDINGS: Lungs/Pleura: There is no evidence of pleural effusion, focal consolidation, or pneumothorax. Pulmonary vascularity: Unremarkable. Heart/mediastinum: Cardiomediastinal silhouette is enlarged. Musculoskeletal: No acute osseous pathology. Midline sternotomy wires are noted. IMPRESSION: 1. No acute cardiopulmonary disease/process. 2. Cardiomegaly [facility], , 02/06/2024 1:25 PM
[2024-02-06 13:30] LABS: Anisocytosis Slight; Basophils # (A) 0.1 k/uL (0-0.2); Basophils % (A) 1 %; Eosinophils % (A) 0 %; HCT 39.2 % (34.0-46.0); HGB 12.4 gm/dL (11.4-16.0); Hypochromasia Marked; Lymphocytes # (A) 2.5 k/uL (1.0-4.8); Lymphocytes % (A) 26 %; MCH 28.4 pg (25.0-35.0); MCHC 31.6 g/dL (31.0-37.0); Mean Platelet Volume 9.9; Monocytes # (A) 0.4 k/uL (0-1.0); Monocytes % (A) 4 %; Neutrophils # (A) 6.2 k/uL (1.3-7.7); Neutrophils % (A) 66 %; Platelet Count 161 k/uL (150-450); RBC 4.36 m/uL (3.80-5.40); RDW 17.1 % (11.5-15.5); WBC 9.4 k/uL (3.8-10.6)
[2024-02-06 13:40] LABS: ALT 25 U/L (4-34); AST 32 U/L (14-36); African American GFR (CKD) 75 (>60 ml/min/1.73 sqM); Albumin 4.2 g/dL (3.5-5.0); Alkaline Phosphatase 95 U/L (38-126); Anion Gap 22 mmol/L; Blood Urea Nitrogen 19 mg/dL (7-17); Carbon Dioxide 13 mmol/L (22-30); Chloride 108 mmol/L (98-107); Glucose 230 mg/dL (74-99); Magnesium 1.7 mg/dL (1.6-2.3); Non-African American GFR(CKD) 65 (>60 ml/min/1.73 sqM); Potassium 3.3 mmol/L (3.5-5.1); Sodium 143 mmol/L (137-145); Total Bilirubin 1.2 mg/dL (0.2-1.3); Total Protein 6.5 g/dL (6.3-8.2)
[2024-02-06 14:35] LABS: INR 1.1 (<1.2); Prothrombin Time 12.2 sec (10.0-12.5)
[2024-02-06 14:59] LABS: Partial Thromboplastin Time 21.3 sec (22.0-30.0)
[2024-02-06] MEDS ORDERED: NALOXONE 0.4 MG/ML 1 ML VIAL IV PRN (15:25)
[2024-02-06] MEDS: SODIUM CHLORIDE 0.9% 1,000 ML IV SCH (18:21)
[2024-02-07] MEDS: ATORVASTATIN 20 MG TAB PO SCH (09:22)
[2024-02-07] MEDS: DAPAGLIFLOZIN PROPANEDIOL 5 MG TABLET PO SCH (09:22)
[2024-02-07] MEDS: APIXABAN 5 MG TAB PO SCH (09:22)
[2024-02-07] MEDS: FUROSEMIDE 40 MG TAB PO SCH (09:22)
[2024-02-07] MEDS: METOPROLOL SUCCINATE (ER) 100 MG TAB.ER.24H PO SCH (09:22)
[2024-02-07 10:00] LABS: Anisocytosis Slight; Basophils % (A) 0 %; Eosinophils # (A) 0.2 k/uL (0-0.7); Eosinophils % (A) 4 %; HCT 40.4 % (34.0-46.0); HGB 12.4 gm/dL (11.4-16.0); Hypochromasia Marked; Lymphocytes # (A) 1.7 k/uL (1.0-4.8); Lymphocytes % (A) 28 %; MCHC 30.6 g/dL (31.0-37.0); MCV 88.3 fL (80.0-100.0); Mean Platelet Volume 9.2; Monocytes # (A) 0.3 k/uL (0-1.0); Monocytes % (A) 5 %; Neutrophils # (A) 3.9 k/uL (1.3-7.7); Neutrophils % (A) 62 %; Platelet Count 130 k/uL (150-450); RBC 4.58 m/uL (3.80-5.40); RDW 17.1 % (11.5-15.5); WBC 6.3 k/uL (3.8-10.6)
[2024-02-07 10:17] LABS: ALT 24 U/L (4-34); AST 27 U/L (14-36); African American GFR (CKD) >90 (>60 ml/min/1.73 sqM); Alkaline Phosphatase 94 U/L (38-126); Anion Gap 8 mmol/L; Blood Urea Nitrogen 19 mg/dL (7-17); Calcium 9.3 mg/dL (8.4-10.2); Carbon Dioxide 25 mmol/L (22-30); Chloride 112 mmol/L (98-107); Glucose 97 mg/dL (74-99); Non-African American GFR(CKD) >90 (>60 ml/min/1.73 sqM); Potassium 3.2 mmol/L (3.5-5.1); Sodium 145 mmol/L (137-145); Total Protein 6.4 g/dL (6.3-8.2)
--- NOTE | 2024-02-07 11:40 | P.CRDCN ---
History of Present Illness Consult date: 02/07/24 History of present illness: History of Present Illness: The patient is a 68-year-old female with known history of CAD status post CABG, ischemic cardiomyopathy, atrial fibrillation and known history of large thoracic aortic aneurysm, measuring 7.5 x 5.9 cm with intramural thrombus. She was evaluated at [facility] and according to the patient was not felt to be a candidate for surgery or endovascular treatment, records are not available. She has an external defibrillator. Yesterday while [facility] [employer] she felt the defibrillator buzzing and subsequently she believes she received a shock but had no syncope. She is in atrial fibrillation in the emergency room, she has no chest discomfort, dizziness or palpitations. She denies any change in her breathing. She has no PND, orthopnea or significant peripheral edema. She has no evidence of malignant arrhythmia in the emergency room and she is hemodynamically stable and feels well. Her echocardiogram in October showed an ejection fraction of 30 to 35% with mild to moderate mitral and mild tricuspid regurgitation with moderate pulmonary hypertension. Her troponin was 0.018. Medications: Metoprolol succinate 100 mg daily, Lasix 40 mg daily, Farxiga 5 mg daily, Lipitor 20 mg daily, Eliquis 5 mg twice a day. Review of Systems: Respiratory: No history of asthma, bronchitis or recent cough. GI: No nausea or vomiting . No history of peptic ulcer disease. No recent GI bleed. : No hematuria or dysuria. Nervous System: No stroke or seizure. Physical Examination: 68-year-old female, alert oriented no apparent distress,Blood pressure 124/70, Heart rate 80 Head: Normocephalic. Eyes: Sclerae nonicteric. Neck: Good carotid upstroke, no bruit, no jugular venous distention. Lungs: Few crackles at the bases Heart: Irregular rate and rhythm, S1-S2, no S3, no rub. Systolic ejection murmur. Abdomen: Soft nontender, positive bowel sounds no organomegaly. Extremities: No edema, intact distal pulses. Labs: Hemoglobin 12.4, potassium 3.2, BUN 19, creatinine 0.68, troponin 0.018. Magnesium 1.7. Chest x-ray with no acute infiltrate EKG: Atrial fibrillation with a rate of 116 and right bundle branch block Impression: 1. Questionable shock in a patient with known history of external defibrillator and atrial fibrillation. We will interrogate the defibrillator 2. History of ischemic cardiomyopathy with no acute heart failure 3. Status post CABG with no evidence of acute ischemia 4. Thoracic aortic aneurysm, according to the records felt not to be a candidate for surgical or endovascular procedure at [facility] 5. Atrial fibrillation with episodes of rapid ventricle response 6. Hyperlipidemia Plan: 1. Obtain the results for workup at [facility] 2. Interrogate her external defibrillator 3. Replace potassium 4. Add spironolactone 5. Continue beta-alex and add ARB in view of the history of cardiomyopathy 6. Depending on her progress further recommendations will be made, thank you for this consult we will follow with you. Past Medical History Past Medical History: Atrial Fibrillation, Asthma, Chest Pain / Angina History of Any Multi-Drug Resistant Organisms: None Reported Past Surgical History: No Surgical Hx Reported Additional Past Surgical History / Comment(s): "open heart surgery" Past Anesthesia/Blood Transfusion Reactions: No Reported Reaction Past Psychological History: No Psychological Hx Reported Smoking Status: Former smoker Past Alcohol Use History: None Reported Past Drug Use History: None Reported Medications and Allergies Home Medications Medication Instructions Recorded Confirmed Type Apixaban [Eliquis] 5 mg PO BID 01/16/24 02/06/24 History Atorvastatin [Lipitor] 20 mg PO DAILY 01/16/24 02/06/24 History Furosemide [Lasix] 40 mg PO DAILY 01/16/24 02/06/24 History Nitroglycerin Sl Tabs [Nitrostat] 0.4 mg SUBLINGUAL Q5M PRN 01/16/24 02/06/24 History Dapagliflozin Propanediol [Farxiga] 5 mg PO DAILY #30 tab 01/19/24 02/06/24 Rx Metoprolol Succinate (ER) [Toprol 100 mg PO DAILY #30 tab 01/19/24 02/06/24 Rx XL] Budesonide-Formot 160-4.5 Mcg 2 puff INHALATION RT-BID 02/06/24 02/06/24 History [Symbicort 160-4.5 Mcg Inhaler] Allergies Allergy/AdvReac Type Severity Reaction Status Date / Time adhesive Allergy Rash/Hives Verified 02/06/24 14:20 Physical Exam Vitals: Vital Signs Temp Pulse Resp BP Pulse Ox 02/07/24 06:00 44 L 16 124/69 98 02/07/24 05:00 81 16 129/90 98 02/07/24 04:00 40 L 16 107/74 98 02/07/24 03:00 54 L 16 111/82 98 02/07/24 02:00 63 16 131/68 98 02/07/24 01:00 82 16 112/71 99 02/07/24 00:00 70 19 118/77 98 02/06/24 23:00 70 19 131/67 98 02/06/24 22:00 55 L 18 113/69 98 02/06/24 21:00 74 18 126/84 98 02/06/24 20:00 72 17 119/82 96 02/06/24 19:00 80 16 140/72 99 02/06/24 18:00 74 18 100/62 97 02/06/24 15:29 75 20 132/98 99 02/06/24 14:30 68 20 115/70 99 02/06/24 13:01 84 20 108/92 99 02/06/24 12:50 97.3 F L 124 H 30 H 120/68 93 L Results 02/07/24 09:33 02/07/24 09:33 Cardiac Enzymes 02/06/24 02/06/24 02/07/24 Range/Units 12:56 12:56 09:33 AST 32 27 (14-36) U/L Troponin I 0.018 (0.000-0.034) ng/mL Coagulation 02/06/24 Range/Units 14:10 PT 12.2 (10.0-12.5) sec APTT 21.3 L (22.0-30.0) sec CBC 02/06/24 02/07/24 Range/Units 12:56 09:33 WBC 9.4 6.3 (3.8-10.6) k/uL RBC 4.36 4.58 (3.80-5.40) m/uL Hgb 12.4 12.4 (11.4-16.0) gm/dL Hct 39.2 40.4 (34.0-46.0) % Plt Count 161 130 L (150-450) k/uL Comprehensive Metabolic Panel 02/06/24 02/07/24 Range/Units 12:56 09:33 Sodium 143 145 (137-145) mmol/L Potassium 3.3 L 3.2 L (3.5-5.1) mmol/L Chloride 108 H 112 H (98-107) mmol/L Carbon Dioxide 13 L 25 (22-30) mmol/L BUN 19 H 19 H (7-17) mg/dL Creatinine 0.91 0.68 (0.52-1.04) mg/dL Glucose 230 H 97 (74-99) mg/dL Calcium 9.0 9.3 (8.4-10.2) mg/dL AST 32 27 (14-36) U/L ALT 25 24 (4-34) U/L Alkaline Phosphatase 95 94 (38-126) U/L Total Protein 6.5 6.4 (6.3-8.2) g/dL Albumin 4.2 4.0 (3.5-5.0) g/dL Current Medications Generic Name Dose Route Start Last Admin Trade Name Freq PRN Reason Stop Dose Admin Apixaban 5 mg 02/07/24 09:15 02/07/24 09:22 Apixaban 5 Mg Tab PO 5 mg BID KAREL Administration Protocol Atorvastatin Calcium 20 mg 02/07/24 09:15 02/07/24 09:22 Atorvastatin 20 Mg Tab PO 20 mg DAILY KAREL Administration Budesonide/Formoterol Fumarate 2 puff 02/07/24 20:00 Symbicort 160-4.5 Mcg Inhaler INHALATION RT-BID [facility] Dapagliflozin 5 mg 02/07/24 09:15 02/07/24 09:22 Dapagliflozin Propanediol 5 Mg Tablet PO 5 mg DAILY KAREL Administration Furosemide 40 mg 02/07/24 09:15 02/07/24 09:22 Furosemide 40 Mg Tab PO 40 mg DAILY [facility] Administration Sodium Chloride 1,000 mls @ 20 mls/hr 02/06/24 15:30 02/06/24 18:21 Saline 0.9% IV 20 mls/hr .Q24H KAREL Administration Metoprolol Succinate 100 mg 02/07/24 09:15 02/07/24 09:22 Metoprolol Succinate (Er) 100 Mg Tab.Er.24h PO 100 mg DAILY KAREL Administration Naloxone HCl 0.2 mg 02/06/24 15:25 Naloxone 0.4 Mg/Ml 1 Ml Vial IV Q2M PRN Opioid Reversal Pantoprazole Sodium 40 mg 02/08/24 07:30 Pantoprazole 40 Mg Tablet PO AC-[id number] [facility] 02/07/24 09:33 02/07/24 09:33
[2024-02-07] MEDS: SPIRONOLACTONE 25 MG TAB PO SCH (12:41)
[2024-02-07] MEDS: LOSARTAN 25 MG TAB PO SCH (12:41)
[2024-02-07] MEDS: POTASSIUM CHLORIDE ER 20 MEQ TAB.ER PO STA (15:19)
--- NOTE | 2024-02-07 15:29 | P.HPIM ---
History of Present Illness H&P Date: 02/07/24 Chief Complaint: External defibrillator discharge Patient is a 68 year old female with past medical history of atrial fibrillation with RVR, congestive heart failure with reduced EF, large thoracic aortic aneurysm measuring 7.5 x 5.9 cm with intramural thrombus, CAD with previous CABG, ischemic cardiomyopathy, hypertension, hyperlipidemia, diabetes, former tobacco dependence presented to the ED with arrhythmia. Patient mention she was [facility] [employer] [facility] when her external defibrillator discharged and she received a shock. She mentions experiencing pain from the shock but denies having any palpitations, chest pain, dizziness, lightheadedness. She mentions getting the defibrillator just a couple weeks ago. Patient mentions being admitted here 3 weeks ago for Acute hypoxic and hypercapnic respiratory failure due to COPD exacerbation. She allegedly has a cyst on her heart. Denies fever, chills, shortness of breath, cough, abdominal pain, nausea, vomiting, hematuria, dysuria, hematochezia, melena, headache, slurred speech, numbness, tingling. ED documentation reviewed. In the ED patient was treated with normal saline. Vitals on admission T 97.3 F, [place] 124 bpm, RR 30, BP 120/68, O2 sat 93% on 4 L nasal cannula EKG independently interpreted as atrial fibrillation with rapid ventricular response, right bundle branch block, rate 116 bpm, QTc 441 ms Chest x-ray shows no acute cardiopulmonary disease/process. Cardiomegaly Labs on admission show WBC 9.4, hemoglobin 12.4, creatinine 0.91, APTT 21.3 potassium 3.3, bicarb 14, anion gap 22, glucose 230 Review of systems: Pertinent positives and negatives as discussed in HPI, a complete review of systems was performed and all other systems are negative. Social history: Tobacco: Former smoker Alcohol: Denies use Recreational drugs: Denies use Travel: No recent travel history Sick contacts: None Physical examination: Vital signs reviewed General: nontoxic, no distress, appears at stated age Derm: warm, dry, intact Head: atraumatic, normocephalic, symmetric Eyes: EOMI, anicteric sclera Mouth: no lip lesion, mucus membranes moist Cardiovascular: S1 S2 reg, no murmur Lungs: CTA bilateral, no rhonchi, no rales, no accessory muscle use Abdominal: soft, non-tender to palpation Extremities: No cyanosis, clubbing, or pedal edema. Neuro: Alert, Oriented, Gross neurological examination did not reveal any focal deficits. Psych: well appearing, appropriate affect Assessment/Plan: Patient is a 68 year old female with PMH of A-fib with RVR, CHF with EF 30 to 35%, previous CABG, hyperlipidemia presented to the ED after her external defibrillator discharge. Active: #. External defibrillator discharge #. Atrial fibrillation with rapid ventricular rate EKG independently interpreted as atrial fibrillation with rapid ventricular response, right bundle branch block, rate 116 bpm, QTc 441 ms Cardiology consulted, recommend Interrogation of external defibrillator Spironolactone 25 mg PO daily and Losartan 25 mg PO daily added Continue home meds Eliquis 5 mg PO BID, metoprolol 100 mg PO daily, Farxiga decreased to 10 mg PO daily Continue Telemetry monitoring #. Acute hypoxic respiratory failure #. Elevated D-dimer Increased supplemental oxygen need, 4L via nasal cannula CT angio ordered #. Hypokalemia Potassium chloride 40 meq PO once #. Anion gap metabolic acidosis Anion gap 22, bicarb 13 Resolved Chronic: #. Ischemic cardiomyopathy (EF 30 to 35% on 11/01) #. Chronic obstructive pulmonary disease, not in acute exacerbation #. Hyperlipidemia Continue home meds metoprolol 100 mg PO daily, Farxiga decreased to 10 mg PO daily, Furosemide 40 mg PO daily, Symbicort 2 puff BID, atorvastatin increased to 40 mg p.o. daily F: 0.9 normal saline 20 mL/h E: Potassium chloride 40 meq PO once N: Heart healthy diet DVT prophylaxis: Apixaban 5 mg p.o. twice daily GI prophylaxis: Pantoprazole 40 mg p.o. daily The patient is admitted with an anticipated more than 2 midnight stay for evaluation of arrhythmia CODE STATUS: Full code Discussed with: Patient Anticipated discharge place: Home Attestation I have seen and examined this patient with my resident , discussed the same with the resident/[place], and agree with the dictator's assessment and plan as written Dr. Greg marcus Past Medical History Past Medical History: Atrial Fibrillation, Asthma, Chest Pain / Angina History of Any Multi-Drug Resistant Organisms: None Reported Past Surgical History: No Surgical Hx Reported Additional Past Surgical History / Comment(s): "open heart surgery" Past Anesthesia/Blood Transfusion Reactions: No Reported Reaction Past Psychological History: No Psychological Hx Reported Smoking Status: Former smoker Past Alcohol Use History: None Reported Past Drug Use History: None Reported Medications and Allergies Home Medications Medication Instructions Recorded Confirmed Type Apixaban [Eliquis] 5 mg PO BID 01/16/24 02/06/24 History Atorvastatin [Lipitor] 20 mg PO DAILY 01/16/24 02/06/24 History Furosemide [Lasix] 40 mg PO DAILY 01/16/24 02/06/24 History Nitroglycerin Sl Tabs [Nitrostat] 0.4 mg SUBLINGUAL Q5M PRN 01/16/24 02/06/24 History Dapagliflozin Propanediol [Farxiga] 5 mg PO DAILY #30 tab 01/19/24 02/06/24 Rx Metoprolol Succinate (ER) [Toprol 100 mg PO DAILY #30 tab 01/19/24 02/06/24 Rx XL] Budesonide-Formot 160-4.5 Mcg 2 puff INHALATION RT-BID 02/06/24 02/06/24 History [Symbicort 160-4.5 Mcg Inhaler] Allergies Allergy/AdvReac Type Severity Reaction Status Date / Time adhesive Allergy Rash/Hives Verified 02/06/24 14:20 Physical Exam Vitals: Vital Signs Temp Pulse Resp BP Pulse Ox 02/07/24 06:00 44 L 16 124/69 98 02/07/24 05:00 81 16 129/90 98 02/07/24 04:00 40 L 16 107/74 98 02/07/24 03:00 54 L 16 111/82 98 02/07/24 02:00 63 16 131/68 98 02/07/24 01:00 82 16 112/71 99 02/07/24 00:00 70 19 118/77 98 02/06/24 23:00 70 19 131/67 98 02/06/24 22:00 55 L 18 113/69 98 02/06/24 21:00 74 18 126/84 98 02/06/24 20:00 72 17 119/82 96 02/06/24 19:00 80 16 140/72 99 02/06/24 18:00 74 18 100/62 97 02/06/24 15:29 75 20 132/98 99 02/06/24 14:30 68 20 115/70 99 02/06/24 13:01 84 20 108/92 99 02/06/24 12:50 97.3 F L 124 H 30 H 120/68 93 L Results CBC & Chem 7: 02/08/24 07:46 02/07/24 09:33 Labs: Abnormal Lab Results - Last 24 Hours (Table) 02/06/24 02/06/24 02/06/24 Range/Units 12:56 12:56 14:10 RDW 17.1 H (11.5-15.5) % APTT 21.3 L (22.0-30.0) sec Potassium 3.3 L (3.5-5.1) mmol/L Chloride 108 H (98-107) mmol/L Carbon Dioxide 13 L (22-30) mmol/L BUN 19 H (7-17) mg/dL Glucose 230 H (74-99) mg/dL
[2024-02-07 15:42] LABS: VBG PH 7.41 (7.31-7.41)
--- NOTE | 2024-02-07 16:59 | CT ---
EXAMINATION TYPE: CT chest angio for PE DATE OF EXAM: 02/07/2024 4:34 PM COMPARISON: 10/24/2023 CLINICAL INDICATION: Female, 68 years old with history of Dyspnea, tomasz TECHNIQUE: CT of the chest is performed on a spiral scan at 2 mm thick sections. Study is performed with intravenous contrast timed for evaluation for pulmonary embolism. This will limit additional po rtions of the evaluation. 3-D MIP images reconstructed by the technologist are reviewed on the compu ter in the coronal and sagittal planes. Contrast used:100ml mL of with IV Contrast, (none if empty) Oral contrast used: (none if empty) CT DLP: 319.6 mGycm, Automated exposure control for dose reduction was used. FINDINGS: Thyroid is enlarged. There are several rounded calcifications within the right lobe thyroid . Thyroid extends in the superior mediastinum. No persistent filling defects are evident to suggest an acute pulmonary embolism. No mediastinal or hilar adenopathy enlarged by CT criteria is evident. The ascending aorta diameter at the level of the main pulmonary artery is 3.9 cm. The main pulmonary artery diameter at the bifurcation is 3.0 cm. There is a 5.1 cm saccular aneurysm extending from th e posterior lateral descending thoracic aorta. The descending thoracic aorta has fusiform prominence measuring 4.5 cm in transverse dimension. This extends to the diaphragm. Findings were present 024. Lung windows are clear. Emphysematous changes are evident. Limited CT sections were through the upper abdomen. Upper abdomen appears unremarkable. IMPRESSION: 1. No acute pulmonary embolism. 2. Saccular aneurysm extending from the descending thoracic aorta measuring approximately 5.1 centime ters in size. The descending thoracic aortic aneurysm is aneurysmal measuring 4.5 cm in transverse di mension extending towards the diaphragm. 3. 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 [facility], , 02/07/2024 4:57 PM
[2024-02-07] MEDS: SYMBICORT 160-4.5 MCG INHALER INHALATION SCH (20:43)
[2024-02-08] MEDS: DEXTROSE 5% IN WATER 100 ML with AMIODARONE 150 MG IV ONE (00:07)
[2024-02-08] MEDS: AMIODARONE 360 MG in DEXTROSE 5% IN WATER 200 ML IV ONE (00:24)
[2024-02-08] MEDS: AMIODARONE 450 MG in DEXTROSE 5% IN WATER 250 ML IV SCH (06:14)
[2024-02-08] MEDS: PANTOPRAZOLE 40 MG TABLET PO SCH ×2 (06:14→16:17)
[2024-02-08] MEDS: ATORVASTATIN 40 MG TAB PO SCH (08:14)
[2024-02-08] MEDS: DAPAGLIFLOZIN PROPANEDIOL 10 MG TABLET PO SCH (08:14)
[2024-02-08 08:27] LABS: Anisocytosis Slight; Basophils % (A) 0 %; Eosinophils # (A) 0.2 k/uL (0-0.7); Eosinophils % (A) 4 %; HCT 41.3 % (34.0-46.0); HGB 12.6 gm/dL (11.4-16.0); Hypochromasia Marked; Lymphocytes # (A) 1.7 k/uL (1.0-4.8); Lymphocytes % (A) 27 %; MCH 27.5 pg (25.0-35.0); MCHC 30.6 g/dL (31.0-37.0); Mean Platelet Volume 9.1; Monocytes # (A) 0.3 k/uL (0-1.0); Monocytes % (A) 5 %; Neutrophils # (A) 3.9 k/uL (1.3-7.7); Neutrophils % (A) 62 %; Platelet Count 117 k/uL (150-450); RBC 4.58 m/uL (3.80-5.40); RDW 16.8 % (11.5-15.5); WBC 6.3 k/uL (3.8-10.6)
[2024-02-08 08:50] LABS: ALT 22 U/L (4-34); AST 27 U/L (14-36); African American GFR (CKD) 88 (>60 ml/min/1.73 sqM); Albumin 3.7 g/dL (3.5-5.0); Alkaline Phosphatase 90 U/L (38-126); Anion Gap 9 mmol/L; Blood Urea Nitrogen 19 mg/dL (7-17); Calcium 8.9 mg/dL (8.4-10.2); Carbon Dioxide 23 mmol/L (22-30); Chloride 112 mmol/L (98-107); Glucose 148 mg/dL (74-99); Non-African American GFR(CKD) 76 (>60 ml/min/1.73 sqM); Potassium 3.6 mmol/L (3.5-5.1); Sodium 144 mmol/L (137-145); Total Protein 5.9 g/dL (6.3-8.2)
--- NOTE | 2024-02-08 11:02 | P.PN ---
Subjective Progress Note Date: 02/08/24 PROGRESS NOTE The patient is a 68-year-old female with known history of CAD status post CABG, ischemic cardiomyopathy, atrial fibrillation and known history of large thoracic aortic aneurysm, measuring 7.5 x 5.9 cm with intramural thrombus. She was evaluated at [facility] and according to the patient was not felt to be a candidate for surgery or endovascular treatment, records are not available. She has an external defibrillator. Yesterday while at [employer] she felt the defibrillator buzzing and subsequently she believes she received a shock but had no syncope. She is in atrial fibrillation in the emergency room, she has no chest discomfort, dizziness or palpitations. She denies any change in her breathing. She has no PND, orthopnea or significant peripheral edema. She has no evidence of malignant arrhythmia in the emergency room and she is hemodynamically stable and feels well. Her echocardiogram in October showed an ejection fraction of 30 to 35% with mild to moderate mitral and mild tricuspid regurgitation with moderate pulmonary hypertension. Her troponin was 0.018. February 07: The patient feels better this morning, she denies any chest discomfort, her breathing is stable. On interrogation of her LifeVest she had a shock related to atrial fibrillation with rapid ventricle response. She had atrial fibrillation with rapid ventricle response yesterday and was started on amiodarone. She denies any dizziness or palpitations, no nausea or vomiting. She is not sure if she wants to keep her LifeVest after she goes home. Of note that the patient has a thoracic aortic aneurysm that is not amenable to surgical or endovascular repair and was evaluated at [facility]. Her CT scan of the chest showed a saccular aneurysm extending from the descending thoracic aorta measuring 5.1 x 4.5 cm. Medications: IV amiodarone, Eliquis 5 mg twice a day, Lipitor 40 mg daily, Farxiga 10 mg daily, Lasix 40 mg daily, losartan 25 mg twice a day, metoprolol succinate 100 mg daily, spironolactone 25 mg daily PHYSICAL EXAMINATION: Blood pressure 118/80 heart rate 92 LUNGS: Clear to auscultation HEART: Irregular rate and rhythm, S1, S2. No S3. Systolic ejection murmur ABDOMEN: Soft, nontender, no organomegaly EXTREMETIES: No edema LAB: Potassium 3.6, BUN 19, creatinine 0.8 IMPRESSION: 1. External defibrillator discharge for atrial fibrillation and rapid ventricle response 2. History of ischemic cardiomyopathy 3. Status post CABG with no acute ischemia 4. Thoracic aortic aneurysm not a candidate for surgical or endovascular repair 5. Hyperlipidemia PLAN: 1. Change to oral amiodarone 2. Continue other medications 3. Monitor ventricular response and blood pressure and if stable increase beta- alex 4. Patient is thinking about maintaining her LifeVest, she is not quite sure she wants to. I discussed with her the risk of sudden . We will await her input. Objective - Vital Signs Vital signs: Vital Signs Temp 97.6 F 02/08/24 08:11 Pulse 92 02/08/24 08:11 Resp 18 02/08/24 08:11 BP 118/82 02/08/24 08:11 Pulse Ox 98 02/08/24 08:28 FiO2 Intake & Output 02/07/24 02/08/24 02/08/24 18:59 06:59 18:59 Intake Total 540 118 Balance 540 118 Weight 74.3 kg Intake: Oral 540 118 Other: Voiding Method Toilet Toilet # Voids 1 - Labs CBC & Chem 7: 02/08/24 07:46 02/08/24 07:46 Labs: Abnormal Lab Results - Last 24 Hours (Table) 02/07/24 02/08/24 02/08/24 Range/Units 14:04 07:46 07:46 MCHC 30.6 L (31.0-37.0) g/dL RDW 16.8 H (11.5-15.5) % Plt Count 117 L (150-450) k/uL D-Dimer 4.26 H (<0.60) mg/L FEU Chloride 112 H (98-107) mmol/L BUN 19 H (7-17) mg/dL Glucose 148 H (74-99) mg/dL Total Protein 5.9 L (6.3-8.2) g/dL
[2024-02-08] MEDS: POTASSIUM CHLORIDE ER 20 MEQ TAB.ER PO STA (11:41)
[2024-02-08] MEDS: AMIODARONE 200 MG TAB PO SCH (11:42)
--- NOTE | 2024-02-08 12:26 | P.PN ---
Subjective Progress Note Date: 02/08/24 Principal diagnosis: Hospital course: Patient is a 68 year old female with past medical history of atrial fibrillation with RVR, congestive heart failure with reduced EF, large thoracic aortic aneurysm measuring 7.5 x 5.9 cm with intramural thrombus, CAD with previous CABG, ischemic cardiomyopathy, hypertension, hyperlipidemia, diabetes, former tobacco dependence presented to the ED with arrhythmia. [facility] when her external defibrillator discharged and she received a shock. She mentions experiencing pain from the shock but denies having any palpitations, chest pain, dizziness, lightheadedness. She mentions getting the defibrillator just a couple weeks ago. Patient mentions being admitted here 3 weeks ago for Acute hypoxic and hypercapnic respiratory failure due to COPD exacerbation. She allegedly has a cyst on her heart. Denies fever, chills, shortness of breath, cough, abdominal pain, nausea, vomiting, hematuria, dysuria, hematochezia, melena, headache, slurred speech, numbness, tingling. ED documentation reviewed. In the ED patient was treated with normal saline. Vitals on admission T 97.3 F, [place] 124 bpm, RR 30, BP 120/68, O2 sat 93% on 4 L nasal cannula EKG independently interpreted as atrial fibrillation with rapid ventricular response, right bundle branch block, rate 116 bpm, QTc 441 ms Chest x-ray shows no acute cardiopulmonary disease/process. Cardiomegaly Labs on admission show WBC 9.4, hemoglobin 12.4, creatinine 0.91, APTT 21.3 potassium 3.3, bicarb 14, anion gap 22, glucose 230 02/08/24: Patient seen and examined at bedside today. Patient is off oxygen today and saturating at 98% on room air. Labs today show platelet 117, potassium 3.6. Repeat EKG shows atrial flutter with ventricular rate 95 bpm and QTc 455 ms. Chest CTA shows no acute pulmonary embolism, saccular aneurysm extending from the descending thoracic aorta, thyroid goiter extending into superior mediastinum. On interrogation of her [employer] she had a shock related to atrial fibrillation with rapid ventricle response. She had atrial fibrillation with rapid ventricle response yesterday and was started on IV amiodarone. Review of systems: Pertinent positives and negatives as discussed in HPI, a complete review of systems was performed and all other systems are negative. Vitals: Signs Reviewed Physical examination: General: nontoxic, no distress, appears at stated age Derm: warm, dry, intact Head: atraumatic, normocephalic, symmetric Eyes: EOMI, anicteric sclera Mouth: no lip lesion, mucus membranes moist Cardiovascular: Irregular rate and rhythm Lungs: CTA bilateral, no rhonchi, no rales, no accessory muscle use Abdominal: soft, non-tender to palpation Extremities: No cyanosis, clubbing, or pedal edema. Neuro: Alert, Oriented, Gross neurological examination did not reveal any focal deficits. Psych: well appearing, appropriate affect Assessment/Plan: Patient is a 68 year old female with PMH of A-fib with RVR, CHF with EF 30 to 35%, previous CABG, hyperlipidemia presented to the ED after her external d efibrillator discharge. On interrogation of her LifeVest she had a shock related to atrial fibrillation with rapid ventricle response. She had atrial fibrillation with rapid ventricle response yesterday and is started on amiodarone. Active: #. External defibrillator discharge #. Atrial fibrillation with rapid ventricular rate EKG independently interpreted as atrial fibrillation with rapid ventricular response, right bundle branch block, rate 116 bpm, QTc 441 ms Repeat EKG shows atrial flutter with ventricular rate 95 bpm and QTc 455 ms. Cardiology consulted, recommend Interrogation of external defibrillator Amiodarone IV to PO 200 mg PO BID Continue Spironolactone 25 mg PO daily and Losartan 25 mg PO daily Continue home meds Eliquis 5 mg PO BID, metoprolol 100 mg PO daily, Farxiga decreased to 10 mg PO daily Continue Telemetry monitoring #. Acute hypoxic respiratory failure, resolved #. Elevated D-dimer Patient saturating well on room air Chest CTA shows no acute pulmonary embolism, saccular aneurysm extending from the descending thoracic aorta, thyroid goiter extending into superior mediastinum. #. Hypokalemia, improving Potassium chloride 20 meq PO once Monitor BMP #. Anion gap metabolic acidosis, resolved Anion gap 22, bicarb 13 VBG showed pH 7.41, pCO2 39, bicarb 24 Chronic: #. Ischemic cardiomyopathy (EF 30 to 35% on 11/01) #. Chronic obstructive pulmonary disease, not in acute exacerbation #. Hyperlipidemia Continue home meds metoprolol 100 mg PO daily, Farxiga decreased to 10 mg PO da jaxon, Furosemide 40 mg PO daily, Symbicort 2 puff BID, atorvastatin increased to 40 mg p.o. daily F: 0.9 normal saline 20 mL/h E: Potassium chloride 40 meq PO once N: Heart healthy diet DVT prophylaxis: Apixaban 5 mg p.o. twice daily GI prophylaxis: Pantoprazole 40 mg p.o. daily Attestation I have seen and examined this patient with my resident , discussed the same with the resident/[place], and agree with the dictator's assessment and plan as written Dr. Greg marcus Objective - Vital Signs Vital signs: Vital Signs Temp 98.2 F 02/08/24 04:00 Pulse 68 02/08/24 04:00 Resp 18 02/08/24 04:00 BP 93/63 02/08/24 04:00 Pulse Ox 98 02/08/24 04:00 FiO2 Intake & Output 02/07/24 02/08/24 02/08/24 18:59 06:59 18:59 Intake Total 540 Balance 540 Weight 74.3 kg Intake: Oral 540 Other: Voiding Method Toilet # Voids 1 - Labs CBC & Chem 7: 02/09/24 07:07 02/09/24 07:07 Labs: Abnormal Lab Results - Last 24 Hours (Table) 02/07/24 02/07/24 02/07/24 Range/Units 09:33 09:33 14:04 MCHC 30.6 L (31.0-37.0) g/dL RDW 17.1 H (11.5-15.5) % Plt Count 130 L (150-450) k/uL D-Dimer 4.26 H (<0.60) mg/L FEU Potassium 3.2 L (3.5-5.1) mmol/L Chloride 112 H (98-107) mmol/L BUN 19 H (7-17) mg/dL Total Bilirubin 2.0 H (0.2-1.3) mg/dL
[2024-02-09 08:16] LABS: Anisocytosis Slight; HCT 38.2 % (34.0-46.0); HGB 12.2 gm/dL (11.4-16.0); Hypochromasia Slight; MCH 27.6 pg (25.0-35.0); MCHC 31.9 g/dL (31.0-37.0); MCV 86.5 fL (80.0-100.0); Mean Platelet Volume 10.4; Platelet Count 111 k/uL (150-450); RBC 4.42 m/uL (3.80-5.40); RDW 17.3 % (11.5-15.5); WBC 7.3 k/uL (3.8-10.6)
[2024-02-09 08:25] VITALS: RESP 16
[2024-02-09 08:31] LABS: African American GFR (CKD) 77 (>60 ml/min/1.73 sqM); Anion Gap 11 mmol/L; Blood Urea Nitrogen 19 mg/dL (7-17); Calcium 9.1 mg/dL (8.4-10.2); Carbon Dioxide 21 mmol/L (22-30); Chloride 111 mmol/L (98-107); Glucose 110 mg/dL (74-99); Non-African American GFR(CKD) 67 (>60 ml/min/1.73 sqM); Sodium 143 mmol/L (137-145)
--- NOTE | 2024-02-09 11:34 | P.PN ---
Subjective Progress Note Date: 02/09/24 Principal diagnosis: Hospital course: Patient is a 68 year old female with past medical history of atrial fibrillation with RVR, congestive heart failure with reduced EF, large thoracic aortic aneurysm measuring 7.5 x 5.9 cm with intramural thrombus, CAD with previous CABG, ischemic cardiomyopathy, hypertension, hyperlipidemia, diabetes, former tobacco dependence presented to the ED with arrhythmia. Patient mention she was [facility] [employer] yesterday when her external defibrillator discharged and she received a shock. She mentions experiencing pain from the shock but denies having any palpitations, chest pain, dizziness, lightheadedness. She mentions getting the defibrillator just a couple weeks ago. Patient mentions being admitted here 3 weeks ago for Acute hypoxic and hypercapnic respiratory failure due to COPD exacerbation. She allegedly has a cyst on her heart. Denies fever, chills, shortness of breath, cough, abdominal pain, nausea, vomiting, hematuria, dysuria, hematochezia, melena, headache, slurred speech, numbness, tingling. ED documentation reviewed. In the ED patient was treated with normal saline. Vitals on admission T 97.3 F, [place] 124 bpm, RR 30, BP 120/68, O2 sat 93% on 4 L nasal cannula EKG independently interpreted as atrial fibrillation with rapid ventricular response, right bundle branch block, rate 116 bpm, QTc 441 ms Chest x-ray shows no acute cardiopulmonary disease/process. Cardiomegaly Labs on admission show WBC 9.4, hemoglobin 12.4, creatinine 0.91, APTT 21.3 potassium 3.3, bicarb 14, anion gap 22, glucose 230 02/08/24: Patient seen and examined at bedside today. Patient is off oxygen today and saturating at 98% on room air. Labs today show platelet 117, potassium 3.6. Repeat EKG shows atrial flutter with ventricular rate 95 bpm and QTc 455 ms. Chest CTA shows no acute pulmonary embolism, saccular aneurysm extending from the descending thoracic aorta, thyroid goiter extending into superior mediastinum. On interrogation of her LifeVest she had a shock related to atrial fibrillation with rapid ventricle response. She had atrial fibrillation with rapid ventricle response yesterday and was started on IV amiodarone. 02/09/24: Patient evaluated at bedside. Vitals show pulse rate 116 bpm and oxygen saturation 97% on 3L oxygen via nasal cannula. She reports that shortness of breath is associated with palpitations. Currently does not have any new complaints. Labs today show hemoglobin 12.2, WBC 7.3, bicarb 11, K 4.0. Review of systems: Pertinent positives and negatives as discussed in HPI, a complete review of systems was performed and all other systems are negative. Vitals: Signs Reviewed Physical examination: General: nontoxic, no distress, appears at stated age Derm: warm, dry, intact Head: atraumatic, normocephalic, symmetric Eyes: EOMI, anicteric sclera Mouth: no lip lesion, mucus membranes moist Cardiovascular: Irregular rate and rhythm Lungs: CTA bilateral, no rhonchi, no rales, no accessory muscle use Abdominal: soft, non-tender to palpation Extremities: No cyanosis, clubbing, or pedal edema. Neuro: Alert, Oriented, Gross neurological examination did not reveal any focal deficits. Psych: well appearing, appropriate affect Assessment/Plan: Patient is a 68 year old female with PMH of A-fib with RVR, CHF with EF 30 to 35%, previous CABG, hyperlipidemia presented to the ED after her external defibrillator discharge. On interrogation of her LifeVest she had a shock related to atrial fibrillation with rapid ventricle response. She had atrial fibrillation with rapid ventricle response couple days ago and was started on amiodarone. Active: #. External defibrillator discharge #. Atrial fibrillation with rapid ventricular rate EKG independently interpreted as atrial fibrillation with rapid ventricular response, right bundle branch block, rate 116 bpm, QTc 441 ms Repeat EKG shows atrial flutter with ventricular rate 95 bpm and QTc 455 ms. Continue Amiodarone PO 200 mg PO BID Continue Spironolactone 25 mg PO daily and Losartan 25 mg PO daily Continue home meds Eliquis 5 mg PO BID, metoprolol 100 mg PO daily, Farxiga decreased to 10 mg PO daily Patient counseled on use of external defibrillator Continue Telemetry monitoring Cardiology following, recommending increasing beta alex dose if ventricular response and blood pressure is stable #. Acute hypoxic respiratory failure, resolved #. Elevated D-dimer Patient saturating well on room air Chest CTA shows no acute pulmonary embolism, saccular aneurysm extending from the descending thoracic aorta, thyroid goiter extending into superior mediastinum. #. Hypokalemia, improving Potassium chloride 20 meq PO once Monitor BMP #. Anion gap metabolic acidosis, resolved Anion gap 22, bicarb 13 VBG showed pH 7.41, pCO2 39, bicarb 24 Chronic: #. Ischemic cardiomyopathy (EF 30 to 35% on 11/01) #. Chronic obstructive pulmonary disease, not in acute exacerbation #. Hyperlipidemia Continue home meds metoprolol 100 mg PO daily, Farxiga decreased to 10 mg PO daily, Furosemide 40 mg PO daily, Symbicort 2 puff BID, atorvastatin increased to 40 mg p.o. daily F: 0.9 normal saline 20 mL/h E: Potassium chloride 40 meq PO once N: Heart healthy diet DVT prophylaxis: Apixaban 5 mg p.o. twice daily GI prophylaxis: Pantoprazole 40 mg p.o. daily Attestation I have seen and examined this patient with my resident , discussed the same with the resident/[place], and agree with the dictator's assessment and plan as written Dr. Greg marcus Objective - Vital Signs Vital signs: Vital Signs Temp 97.4 F L 02/09/24 03:48 Pulse 116 H 02/09/24 03:48 Resp 18 02/09/24 03:48 BP 103/70 02/09/24 03:48 Pulse Ox 97 02/09/24 03:48 FiO2 Intake & Output 02/08/24 02/09/24 02/09/24 18:59 06:59 18:59 Intake Total 236 358 Balance 236 358 Weight 74.4 kg Intake: Oral 236 358 Other: Voiding Method Toilet Toilet # Voids 2 1 - Labs CBC & Chem 7: 02/10/24 06:53 02/10/24 06:53 Labs: Abnormal Lab Results - Last 24 Hours (Table) 02/08/24 02/08/24 Range/Units 07:46 07:46 MCHC 30.6 L (31.0-37.0) g/dL RDW 16.8 H (11.5-15.5) % Plt Count 117 L (150-450) k/uL Chloride 112 H (98-107) mmol/L BUN 19 H (7-17) mg/dL Glucose 148 H (74-99) mg/dL Total Protein 5.9 L (6.3-8.2) g/dL
--- NOTE | 2024-02-09 14:48 | P.PN ---
Subjective Progress Note Date: 02/09/24 History of Present Illness: The patient is a 68-year-old female with known history of CAD status post CABG, ischemic cardiomyopathy, atrial fibrillation and known history of large thoracic aortic aneurysm, measuring 7.5 x 5.9 cm with intramural thrombus. She was evaluated at [facility] and according to the patient was not felt to be a candidate for surgery or endovascular treatment, records are not available. She has an external defibrillator. [facility] [place] [facility] she felt the defibrillator buzzing and subsequently she believes she received a shock but had no syncope. She is in atrial fibrillation in the emergency room, she has no chest discomfort, dizziness or palpitations. She denies any change in her breathing. She has no PND, orthopnea or significant peripheral edema. She has no evidence of malignant arrhythmia in the emergency room and she is hemodynamically stable and feels well. Her echocardiogram in October showed an ejection fraction of 30 to 35% with mild to moderate mitral and mild tricuspid regurgitation with moderate pulmonary hypertension. Her troponin was 0.018. Medications: Metoprolol succinate 100 mg daily, Lasix 40 mg daily, Farxiga 5 mg daily, Lipitor 20 mg daily, Eliquis 5 mg twice a day. Review of Systems: Respiratory: No history of asthma, bronchitis or recent cough. GI: No nausea or vomiting . No history of peptic ulcer disease. No recent GI bleed. : No hematuria or dysuria. Nervous System: No stroke or seizure. Progress note 02/09/2024 BP 127/81, Hemoglobin is 12.2, platelets 111, BUN 19, creatinine 0.8 On telemetry patient continues to be in atrial fibrillation with heart rate averaging around 120s to 130 bpm. Physical Examination: 68-year-old female, alert oriented no apparent distress,Blood pressure 124/70, Heart rate 80 Head: Normocephalic. Eyes: Sclerae nonicteric. Neck: Good carotid upstroke, no bruit, no jugular venous distention. Lungs: Few crackles at the bases Heart: Irregular rate and rhythm, S1-S2, no S3, no rub. Systolic ejection murmur. Abdomen: Soft nontender, positive bowel sounds no organomegaly. Extremities: No edema, intact distal pulses. EKG: Atrial fibrillation with a rate of 116 and right bundle branch block Impression: 1. Questionable shock in a patient with known history of external defibrillator and atrial fibrillation. We will interrogate the defibrillator 2. History of ischemic cardiomyopathy with no acute heart failure 3. Status post CABG with no evidence of acute ischemia 4. Thoracic aortic aneurysm, according to the records felt not to be a candidate for surgical or endovascular procedure at [facility] 5. Atrial fibrillation with episodes of rapid ventricle response 6. Hyperlipidemia Plan: Increase metoprolol to 150 mg daily Continue amiodarone 200 mg twice daily Continue losartan and Aldactone Still awaiting records from [facility]. Give 2 g of magnesium sulfate, Continue to monitor telemetry My assumption is that patient's LifeVest shocked patient because of falsely picking up A-fib RVR as ventricular tachycardia. Have not received data from [email or web address] to review yet. Objective - Vital Signs Vital signs: Vital Signs Temp 98.0 F 02/09/24 11:33 Pulse 114 H 02/09/24 11:33 Resp 16 02/09/24 11:33 BP 89/58 02/09/24 11:33 Pulse Ox 98 02/09/24 11:33 FiO2 Intake & Output 02/08/24 02/09/24 02/09/24 18:59 06:59 18:59 Intake Total 236 358 20 Balance 236 358 20 Weight 74.4 kg Intake: IV 20 Invasive Line 1 20 Oral 236 358 Other: Voiding Method Toilet Toilet Toilet # Voids 2 1 # Bowel Movements 1 - Labs CBC & Chem 7: 02/09/24 07:07 02/09/24 07:07 Labs: Abnormal Lab Results - Last 24 Hours (Table) 02/09/24 02/09/24 Range/Units 07:07 07:07 RDW 17.3 H (11.5-15.5) % Plt Count 111 L (150-450) k/uL Chloride 111 H (98-107) mmol/L Carbon Dioxide 21 L (22-30) mmol/L BUN 19 H (7-17) mg/dL Glucose 110 H (74-99) mg/dL
[2024-02-09] MEDS: METOPROLOL SUCCINATE (ER) 50 MG TAB.ER.24H PO STA (15:13)
[2024-02-09] MEDS: MAGNESIUM SULFATE-D5W PMX 1 GM in DEXTROSE/WATER 1 100ML.BAG IVPB SCH (15:13)
[2024-02-10 07:14] LABS: Anisocytosis Slight; HCT 39.6 % (34.0-46.0); HGB 12.1 gm/dL (11.4-16.0); Hypochromasia Marked; MCH 26.9 pg (25.0-35.0); MCHC 30.5 g/dL (31.0-37.0); MCV 88.3 fL (80.0-100.0); Mean Platelet Volume 9.5; Platelet Count 109 k/uL (150-450); RBC 4.48 m/uL (3.80-5.40); RDW 16.9 % (11.5-15.5); WBC 6.3 k/uL (3.8-10.6)
[2024-02-10 08:05] LABS: African American GFR (CKD) 81 (>60 ml/min/1.73 sqM); Anion Gap 7 mmol/L; Blood Urea Nitrogen 15 mg/dL (7-17); Calcium 8.7 mg/dL (8.4-10.2); Carbon Dioxide 24 mmol/L (22-30); Chloride 110 mmol/L (98-107); Glucose 124 mg/dL (74-99); Non-African American GFR(CKD) 70 (>60 ml/min/1.73 sqM); Potassium 4.4 mmol/L (3.5-5.1); Sodium 141 mmol/L (137-145)
[2024-02-10] MEDS: METOPROLOL SUCCINATE (ER) 50 MG TAB.ER.24H PO SCH (09:13)
[2024-02-10 10:32] VITALS: TEMP 97.4
[2024-02-10 12:30] VITALS: BP 86/70; PULSE 92
--- NOTE | 2024-02-10 12:31 | P.DS ---
Providers Date of admission: 02/06/24 15:27 Expected date of discharge: 02/10/24 Attending physician: Elizabet Gongora Consults: 02/06/24 15:25 Consult Physician Routine Consulting Provider: Martinez Grover Consult Reason/Comments: arrhythmia Do you want consulting provider notified?: Yes Primary care physician: [facility] Hospital Course: Discharge diagnosis: External defibrillator discharge Atrial fibrillation with rapid ventricular rate Acute hypoxic respiratory failure Elevated D-dimer Ischemic cardiomyopathy (EF 30 to 35% on 11/01) Chronic obstructive pulmonary disease, not in acute exacerbation Hyperlipidemia Hospital Course: Patient is a 68 year old female with past medical history of atrial fibrillation with RVR, congestive heart failure with reduced EF, large thoracic aortic aneurysm measuring 7.5 x 5.9 cm with intramural thrombus, CAD with previous CABG, ischemic cardiomyopathy, hypertension, hyperlipidemia, diabetes, former tobacco dependence presented to the ED with arrhythmia. Patient mention she was at [facility] [employer] yesterday when her external defibrillator discharged and she received a shock. She mentions experiencing pain from the shock but denies having any palpitations, chest pain, dizziness, lightheadedness. She mentions getting the defibrillator just a couple weeks ago. Patient mentions being admitted here 3 weeks ago for Acute hypoxic and hypercapnic respiratory failure due to COPD exacerbation. She allegedly has a cyst on her heart. Denies fever, chills, shortness of breath, cough, abdominal pain, nausea, vomiting, hematuria, dysuria, hematochezia, melena, headache, slurred speech, numbness, tingling. ED documentation reviewed. In the ED patient was treated with normal saline. Vitals on admission T 97.3 F, [place] 124 bpm, RR 30, BP 120/68, O2 sat 93% on 4 L nasal cannula. EKG independently interpreted as atrial fibrillation with rapid ventricular response, right bundle branch block, rate 116 bpm, QTc 441 ms. Chest x-ray shows no acute cardiopulmonary disease/process. Cardiomegaly. Labs on admission show WBC 9.4, hemoglobin 12.4, creatinine 0.91, APTT 21.3 potassium 3.3, bicarb 14, anion gap 22, glucose 230 02/08/24: Patient seen and examined at bedside today. Patient is off oxygen today and saturating at 98% on room air. Labs today show platelet 117, potassium 3.6. Repeat EKG shows atrial flutter with ventricular rate 95 bpm and QTc 455 ms. Chest CTA shows no acute pulmonary embolism, saccular aneurysm extending from the descending thoracic aorta, thyroid goiter extending into superior mediastinum. On interrogation of her LifeVest she had a shock related to atrial fibrillation with rapid ventricle response. She had atrial fibrillation with rapid ventricle response yesterday and was started on IV amiodarone. 02/09/24: Patient evaluated at bedside. Vitals show pulse rate 116 bpm and oxygen saturation 97% on 3L oxygen via nasal cannula. She reports that shortness of breath is associated with palpitations. Currently does not have any new complaints. Labs today show hemoglobin 12.2, WBC 7.3, bicarb 11, K 4.0. 02/10/24: Patient examined today. Patient is on 3L oxygen via nasal cannula and saturating at 100%. Labs today show 12.1, potassium 4.4. Patient seen at bedside today and is feeling good and excited about discharge. Patient will be discharged today and is given a script for Atorvastatin 40 mg, Metoprolol 150 mg, Amiodarone 200 mg, Losartan 25 mg, Spironolactone 25 mg, Farxiga 10 mg. Patient is advised to be compliant with medications. 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 Vital signs are reviewed and stable General: nontoxic, no distress, appears at stated age Derm: warm, dry, intact Head: atraumatic, normocephalic, symmetric Eyes: EOMI, anicteric sclera Mouth: no lip lesion, mucus membranes moist Cardiovascular: Irregular rate and rhythm Lungs: CTA bilateral, no rhonchi, no rales, no accessory muscle use Abdominal: soft, non-tender to palpation Extremities: No cyanosis, clubbing, or pedal edema. Neuro: Alert, Oriented, Gross neurological examination did not reveal any focal deficits. Psych: well appearing, appropriate affect A total of 30 minutes of time were spent preparing this complex discharge summa ry. Patient was discharged on 02/10/24 at 1245. Attestation I have seen and examined this patient with my resident , discussed the same with the resident/[place], and agree with the dictator's assessment and plan as written Dr. Greg marcus Patient Condition at Discharge: Fair Plan - Discharge Summary Discharge Rx Participant: No New Discharge Prescriptions: New Atorvastatin [Lipitor] 40 mg PO DAILY 14 Days #14 tab Spironolactone [Aldactone] 25 mg PO DAILY 14 Days #14 tab Amiodarone [Cordarone] 200 mg PO BID 14 Days #28 tab Losartan [Cozaar] 25 mg PO DAILY 14 Days #14 tab Dapagliflozin Propanediol [Farxiga] 10 mg PO DAILY 14 Days #14 tab Metoprolol Succinate (ER) [Toprol XL] 150 mg PO DAILY 14 Days #14 tab Continue Nitroglycerin Sl Tabs [Nitrostat] 0.4 mg SUBLINGUAL Q5M PRN PRN Reason: Chest Pain Budesonide-Formot 160-4.5 Mcg [Symbicort 160-4.5 Mcg Inhaler] 2 puff INHALATION RT-BID Furosemide [Lasix] 40 mg PO DAILY Apixaban [Eliquis] 5 mg PO BID Discontinued Atorvastatin [Lipitor] 20 mg PO DAILY Dapagliflozin Propanediol [Farxiga] 5 mg PO DAILY #30 tab Metoprolol Succinate (ER) [Toprol XL] 100 mg PO DAILY #30 tab Discharge Medication List Apixaban [Eliquis] 5 mg PO BID 01/16/24 [History] Furosemide [Lasix] 40 mg PO DAILY 01/16/24 [History] Nitroglycerin Sl Tabs [Nitrostat] 0.4 mg SUBLINGUAL Q5M PRN 01/16/24 [History] Budesonide-Formot 160-4.5 Mcg [Symbicort 160-4.5 Mcg Inhaler] 2 puff INHALATION RT-BID 02/06/24 [History] Amiodarone [Cordarone] 200 mg PO BID 14 Days #28 tab 02/10/24 [Rx] Atorvastatin [Lipitor] 40 mg PO DAILY 14 Days #14 tab 02/10/24 [Rx] Dapagliflozin Propanediol [Farxiga] 10 mg PO DAILY 14 Days #14 tab 02/10/24 [Rx] Losartan [Cozaar] 25 mg PO DAILY 14 Days #14 tab 02/10/24 [Rx] Metoprolol Succinate (ER) [Toprol XL] 150 mg PO DAILY 14 Days #14 tab 02/10/24 [Rx] Spironolactone [Aldactone] 25 mg PO DAILY 14 Days #14 tab 02/10/24 [Rx] Follow up Appointment(s)/Referral(s): [facility] [NON-STAFF] - [facility] [NON-STAFF] - Lorenza Christopher MD [Primary Care Provider] - 1-2 days (unable to reach office, please call to make appointment once home) Martinez Grover MD [STAFF PHYSICIAN] - 1 Week (please call to make appointment) Discharge/Stand Alone Forms: Who Do I Call? Discharge Disposition: HOME SELF-CARE
--- NOTE | 2024-02-10 14:23 | P.PN ---
Subjective Progress Note Date: 02/10/24 History of Present Illness: The patient is a 68-year-old female with known history of CAD status post CABG, ischemic cardiomyopathy, atrial fibrillation and known history of large thoracic aortic aneurysm, measuring 7.5 x 5.9 cm with intramural thrombus. She was evaluated at [facility] and according to the patient was not felt to be a candidate for surgery or endovascular treatment, records are not available. She has an external defibrillator. Yesterday while at [employer] she felt the defibrillator buzzing and subsequently she believes she received a shock but had no syncope. She is in atrial fibrillation in the emergency room, she has no chest discomfort, dizziness or palpitations. She denies any change in her breathing. She has no PND, orthopnea or significant peripheral edema. She has no evidence of malignant arrhythmia in the emergency room and she is hemodynamically stable and feels well. Her echocardiogram in October showed an ejection fraction of 30 to 35% with mild to moderate mitral and mild tricuspid regurgitation with moderate pulmonary hypertension. Her troponin was 0.018. Medications: Metoprolol succinate 100 mg daily, Lasix 40 mg daily, Farxiga 5 mg daily, Lipitor 20 mg daily, Eliquis 5 mg twice a day. Review of Systems: Respiratory: No history of asthma, bronchitis or recent cough. GI: No nausea or vomiting . No history of peptic ulcer disease. No recent GI bleed. : No hematuria or dysuria. Nervous System: No stroke or seizure. Progress note 02/09/2024 BP 127/81, Hemoglobin is 12.2, platelets 111, BUN 19, creatinine 0.8 On telemetry patient continues to be in atrial fibrillation with heart rate averaging around 120s to 130 bpm. 02/10/24 Patient is seen and examined. Patient denies having chest pain. She states she slept okay last night. She remains in atrial fibrillation with controlled rate. Patient states that she discussed the LifeVest issue with her daughter and her daughter feels that she needs to wear this and she is agreeable to do that. Blood pressure 95/59, heart rate 100, pulse ox 96% on 2 L nasal cannula. Repeat blood work reveals hemoglobin 12.1, creatinine 0.86, potassium 4.4. Physical Examination: 68-year-old female, alert oriented no apparent distress Head: Normocephalic. Eyes: Sclerae nonicteric. Neck: Good carotid upstroke, no bruit, no jugular venous distention. Lungs: Few crackles at the bases Heart: Irregular rate and rhythm, S1-S2, no S3, no rub. Systolic ejection murmur. Abdomen: Soft nontender, positive bowel sounds no organomegaly. Extremities: No edema, intact distal pulses. Impression: 1. Shock from LifeVest related to atrial fibrillation with RVR 2. History of ischemic cardiomyopathy with no acute heart failure 3. Status post CABG with no evidence of acute ischemia 4. Thoracic aortic aneurysm, according to the records felt not to be a candidate for surgical or endovascular procedure at [facility] 5. Atrial fibrillation with episodes of rapid ventricle response, currently rate controlled 6. Hyperlipidemia Plan: Continue metoprolol 150 mg daily Continue amiodarone 200 mg twice daily Continue losartan and Aldactone Patient is cleared for discharge from cardiology perspective. Patient to follow-up with her lna in 1 to 2 weeks. Nurse practitioner note has been reviewed, I agree with documented findings and plan of care. Patient was seen and examined. Objective - Vital Signs Vital signs: Vital Signs Temp 98.3 F 02/09/24 20:45 Pulse 63 02/10/24 03:40 Resp 16 02/10/24 03:40 BP 94/60 02/10/24 03:40 Pulse Ox 100 02/10/24 07:36 FiO2 Intake & Output 02/09/24 02/10/24 02/10/24 18:59 06:59 18:59 Intake Total 664 140 180 Balance 664 140 180 Weight 74.3 kg Intake: IV 20 20 Invasive Line 1 20 20 Intake, IV Titration 200 Amount Magnesium Sulfate-D5w Pmx 200 1 gm In Dextrose/Water 1 100ml.bag @ 100 mls/hr IVPB Q1H [facility] Rx#: [id number] Oral 444 120 180 Other: Voiding Method Toilet Toilet # Voids 2 1 1 # Bowel Movements 1 - Labs CBC & Chem 7: 02/10/24 06:53 02/10/24 06:53 Labs: Abnormal Lab Results - Last 24 Hours (Table) 02/10/24 02/10/24 Range/Units 06:53 06:53 MCHC 30.5 L (31.0-37.0) g/dL RDW 16.9 H (11.5-15.5) % Plt Count 109 L (150-450) k/uL Chloride 110 H (98-107) mmol/L Glucose 124 H (74-99) mg/dL
--- NOTE | 2024-02-11 19:15 | CDI ---
Documentation Clarification Form Date: 02/11/2024 07:06:26 PM From: Hattie Castillo Phone: Admit Date: 02/06/2024 03:27:00 PM Patient Name: Ruba Iyer Visit Number: [id number] Discharge Date: 02/10/2024 03:33:00 PM ATTENTION: The Clinical Documentation Specialists (CDI) and [facility] Coding Staff appreciate your assistance in clarifying documentation. Please respond to the clarification below the line at the bottom and electronically sign. The CDI & [facility] Coding staff will review the response and follow-up if needed. Please note: Queries are made part of the Legal Health Record. If you have any questions, please contact the author of this message via ITS. Doctor/Provider: Greg Dominguez Your patient has a glucose of 230. Please clarify if there is an additional diagnosis and/or clinical significance related to this value. History/Risk Factors: 68yo F, A Fib with RVR,CSHF, TAA w intramuralthrombus,CADsp CABG,ICM, HTN, HLD, DMII, former smoker Clinical indicators: Glucose: 02/05 230 02/06 97 02/07 148 02/08 110 02/09 124 Treatment: Dapagliflozin Propanediol [Farxiga] 5 mg PO DAILY #30 tab Is there an additional diagnosis and/or clinical significance related to the above lab result/information? [ x ] Type 2 diabetes mellitus with hyperglycemia [ ] Type 2 diabetes mellitus with no complications [ ] No additional diagnosis/Not clinically significant [ ] Other, please specify [ ] Unable to determine (Template Last Revised: March 2020) MTDD
== END 2024-02-10 15:33 | disposition home or self-care (01) | DRG 308 ==
LOC: EC 12:48 → 1SOBS 15:27 → 3SCARD 18:27
PROVIDERS: ADMIT Hospitalist; ATTEND Hospitalist
PROC: 3E033RZ Introduction of Antiarrhythmic into Peripheral Vein, Percutaneous Approach (ICD-10-PCS; principal; 2024-02-07)
DX: I48.91 Unspecified atrial fibrillation (principal); J96.01 Acute respiratory failure with hypoxia; J96.02 Acute respiratory failure with hypercapnia; Z95.811 Presence of heart assist device; E87.20 Acidosis, unspecified; I50.22 Chronic systolic (congestive) heart failure; I27.22 Pulmonary hypertension due to left heart disease; I11.0 Hypertensive heart disease with heart failure; I71.20 Thoracic aortic aneurysm, without rupture, unspecified; J44.9 Chronic obstructive pulmonary disease, unspecified; E11.65 Type 2 diabetes mellitus with hyperglycemia; Z95.1 Presence of aortocoronary bypass graft; E87.6 Hypokalemia; I08.1 Rheumatic disorders of both mitral and tricuspid valves; I25.5 Ischemic cardiomyopathy; E78.5 Hyperlipidemia, unspecified; I25.10 Atherosclerotic heart disease of native coronary artery without angina pectoris; Z87.891 Personal history of nicotine dependence; Z79.01 Long term (current) use of anticoagulants; Z79.51 Long term (current) use of inhaled steroids; Z79.84 Long term (current) use of oral hypoglycemic drugs; Z79.899 Other long term (current) drug therapy
CPT/HCPCS: 36415; 71045; 71275; 80048; 80053; 82803; 83735; 84484; 85025; 85027; 85379; 85610; 85730; 93005; 94640; 94760; 96360; 96361; 99291

== ENCOUNTER 2024-02-21 05:30 | Inpatient (IN) | payer MEDICARE ==
--- NOTE | 2024-02-21 05:36 | ED ---
Arrhythmia/Palpitations HPI - General Stated Complaint: Heart Palpitations Time Seen by Provider: 02/21/24 05:35 Source: RN notes reviewed, old records reviewed Mode of arrival: ambulatory Limitations: no limitations - History of Present Illness Initial Comments: This is a 68-year-old female to the ER for evaluation today. Patient comes in for severely elevated heart rate lightheadedness and dizziness. Patient has history of arrhythmia with cardioversion and defibrillation last time she was in the hospital. Today she feels like her heart is out of control MD Complaint: rapid heart beat, "heart racing", palpitations, irregular heart beat, atrial fibrillation -: hour(s) Context: occurred during rest, awoke with symptoms Arrhythmia History: atrial fibrillation, history of electrical cardioversion Associated Symptoms: feeling of impending doom - Related Data Home Medications Medication Instructions Recorded Confirmed Apixaban [Eliquis] 5 mg PO BID 01/16/24 02/06/24 Furosemide [Lasix] 40 mg PO DAILY 01/16/24 02/06/24 Nitroglycerin Sl Tabs [Nitrostat] 0.4 mg SUBLINGUAL Q5M PRN 01/16/24 02/06/24 Budesonide-Formot 160-4.5 Mcg 2 puff INHALATION RT-BID 02/06/24 02/06/24 [Symbicort 160-4.5 Mcg Inhaler] Previous Rx's Medication Instructions Recorded Amiodarone [Cordarone] 200 mg PO BID 14 Days #28 tab 02/10/24 Atorvastatin [Lipitor] 40 mg PO DAILY 14 Days #14 tab 02/10/24 Dapagliflozin Propanediol [Farxiga] 10 mg PO DAILY 14 Days #14 tab 02/10/24 Losartan [Cozaar] 25 mg PO DAILY 14 Days #14 tab 02/10/24 Metoprolol Succinate (ER) [Toprol 150 mg PO DAILY 14 Days #14 tab 02/10/24 XL] Spironolactone [Aldactone] 25 mg PO DAILY 14 Days #14 tab 02/10/24 Allergies Allergy/AdvReac Type Severity Reaction Status Date / Time adhesive Allergy Rash/Hives Verified 02/06/24 14:20 Review of Systems ROS Statement: Those systems with pertinent positive or pertinent negative responses have been documented in the HPI. ROS Other: All systems not noted in ROS Statement are negative. Past Medical History Past Medical History: Atrial Fibrillation, Asthma, Chest Pain / Angina History of Any Multi-Drug Resistant Organisms: None Reported Past Surgical History: No Surgical Hx Reported Additional Past Surgical History / Comment(s): "open heart surgery" Past Anesthesia/Blood Transfusion Reactions: No Reported Reaction Past Psychological History: No Psychological Hx Reported Smoking Status: Former smoker Past Alcohol Use History: None Reported Past Drug Use History: None Reported General Exam General appearance: alert, in no apparent distress, anxious Head exam: Present: atraumatic, normocephalic, normal inspection Eye exam: Present: normal appearance, PERRL, EOMI. Absent: scleral icterus, conjunctival injection, periorbital swelling ENT exam: Present: normal exam, mucous membranes moist Neck exam: Present: normal inspection. Absent: tenderness, meningismus, lym phadenopathy Respiratory exam: Present: normal lung sounds bilaterally. Absent: respiratory distress, wheezes, rales, rhonchi, stridor Cardiovascular Exam: Present: tachycardia, normal heart sounds. Absent: systolic murmur, diastolic murmur, rubs, gallop, clicks GI/Abdominal exam: Present: soft, normal bowel sounds. Absent: distended, tenderness, guarding, rebound, rigid Extremities exam: Present: normal inspection, full ROM, normal capillary refill. Absent: tenderness, pedal edema, joint swelling, calf tenderness Back exam: Present: normal inspection Neurological exam: Present: alert, oriented X3, CN II-XII intact Psychiatric exam: Present: normal affect, normal mood Skin exam: Present: warm, dry, intact, normal color. Absent: rash Course Vital Signs 02/21/24 05:33 Temperature 97.5 F L Pulse Rate 137 H Respiratory 18 Rate Blood Pressure 105/91 O2 Sat by Pulse 97 Oximetry - Reevaluation(s) Reevaluation #1: 02/21/24 06:05 Medical records reviewed Reevaluation #2: 02/21/24 06:05 Patient symptoms unchanged but improving heart rate Reevaluation #3: 02/21/24 06:05 Monitor results questions answered Reevaluation #4: Was pt. sent in by a medical professional or institution (, PA, LYE MACHINE OPERATOR, urgent c are, hospital, or [facility]...) When possible be specific @ -no Did you speak to anyone other than the patient for history (EMS, parent, family, police, friend...)? What history was obtained from this source @ -no Did you review nursing and triage notes (agree or disagree)? Why? @ -agree Are old charts reviewed (outside hosp., previous admission, EMS record, old EKG, old radiological studies, urgent care reports/EKG's, [facility] records)? Report findings @ -yes Differential Diagnosis (chest pain, altered mental status, abdominal pain women, abdominal pain men, vaginal bleeding, weakness, fever, dyspnea, syncope, headache, dizziness, GI bleed, back pain, seizure, CVA, palpatations, mental health, musculoskeletal)? @ -prior EKG interpreted by me (3pts min.). @ -yes X-rays interpreted by me (1pt min.). @ -yes negative for acute disease CT interpreted by me (1pt min.). @ -no U/S interpreted by me (1pt. min.). @ -no What testing was considered but not performed or refused? (CT, X-rays, U/S, labs)? Why? @ -none What meds were considered but not given or refused? Why? @ -none Did you discuss the management of the patient with other professionals (professionals i.e. , PA, LYE MACHINE OPERATOR, lab, RT, psych nurse, social media coordinator, wrapper rewinder, teacher, protocol officer, case making machine operator)? Give summary @ -no Was smoking cessation discussed for >3mins.? @ -no Was critical care preformed (if so, how long)? @ -no Were there social determinants of health that impacted care today? How? (Home lessness, low income, unemployed, alcoholism, drug addiction, transportation, low edu. Level, literacy, decrease access to med. care, [facility], rehab)? @ -none Was there de-escalation of care discussed even if they declined (Discuss DNR or withdrawal of care, Hospice)? DNR status @ -no What co-morbidities impacted this encounter? (DM, HTN, Smoking, COPD, CAD, Cancer, CVA, ARF, Chemo, Hep., AIDS, mental health diagnosis, sleep apnea, morbid obesity)? @ -none Was patient admitted / discharged? Hospital course, mention meds given and route, prescriptions, significant lab abnormalities, going to OR and other pertinent info. @ - Undiagnosed new problem with uncertain prognosis? @ -no Drug Therapy requiring intensive monitoring for toxicity (Heparin, Nitro, Insulin, Cardizem)? @ -no Were any procedures done? @ -no Diagnosis/symptom? @ - Acute, or Chronic, or Acute on Chronic? @ -Acute Uncomplicated (without systemic symptoms) or Complicated (systemic symptoms)? @ -Complicated Side effects of treatment? @ -no Exacerbation, Progression, or Severe Exacerbation? @ -exacerbation Poses a threat to life or bodily function? How? (Chest pain, USA, NC, pneumonia, PE, COPD, DKA, ARF, appy, cholecystitis, CVA, Diverticulitis, Homicidal, Suicidal, threat to staff... and all critical care pts) @ -yes Reevaluation #5: Differential Palpitations Ventricular arrhythmias, atrial arrhythmias, myocardial infarction, anemia, thyrotoxicosis, electrolyte imbalance, hypokalemia, pulmonary embolism, pulmonary disease, drugs, alcohol, anxiety, stress.... This is not meant to be an all-inclusive list. - Consultations Consultation #1: Spoke with [facility] to admit this patient EKG Findings - EKG Comments: EKG Findings:: EKG is sinus tach 136 SC 188 QRS 164 QTc 444 - EKG Results: EKG: interpreted by MARIZA Medical Decision Making - Medical Decision Making 68 female will be admitted for A-fib with RVR uncontrolled heart rate symptoms of dizziness and weakness - Lab Data Result diagrams: 02/21/24 05:41 02/21/24 05:41 Lab Results 02/21/24 02/21/24 02/21/24 Range/Units 05:41 05:41 05:41 WBC 6.8 (3.8-10.6) k/uL RBC 4.55 (3.80-5.40) m/uL Hgb 12.3 (11.4-16.0) gm/dL Hct 39.7 (34.0-46.0) % MCV 87.2 (80.0-100.0) fL MCH 27.0 (25.0-35.0) pg MCHC 31.0 (31.0-37.0) g/dL RDW 17.5 H (11.5-15.5) % Plt Count 189 D (150-450) k/uL MPV 9.2 Neutrophils % 65 % Lymphocytes % 26 % Monocytes % 5 % Eosinophils % 2 % Basophils % 0 % Neutrophils # 4.4 (1.3-7.7) k/uL Lymphocytes # 1.8 (1.0-4.8) k/uL Monocytes # 0.4 (0-1.0) k/uL Eosinophils # 0.1 (0-0.7) k/uL Basophils # 0.0 (0-0.2) k/uL Hypochromasia Moderate Anisocytosis Slight PT 14.7 H (10.0-12.5) sec INR 1.4 H (<1.2) APTT 23.3 (22.0-30.0) sec Sodium 148 H (137-145) mmol/L Potassium 3.7 (3.5-5.1) mmol/L Chloride 117 H (98-107) mmol/L Carbon Dioxide 19 L (22-30) mmol/L Anion Gap 12 mmol/L BUN 26 H (7-17) mg/dL Creatinine 1.08 H (0.52-1.04) mg/dL Est GFR (CKD-EPI)AfAm 61 (>60 ml/min/1.73 sqM) Est GFR (CKD-EPI)NonAf 53 (>60 ml/min/1.73 sqM) Glucose 174 H (74-99) mg/dL Calcium 9.0 (8.4-10.2) mg/dL Phosphorus 4.5 (2.5-4.5) mg/dL Magnesium 1.8 (1.6-2.3) mg/dL Total Bilirubin 1.1 (0.2-1.3) mg/dL AST 31 (14-36) U/L ALT 40 H (4-34) U/L Alkaline Phosphatase 108 (38-126) U/L Troponin I (0.000-0.034) ng/mL Total Protein 6.3 (6.3-8.2) g/dL Albumin 3.9 (3.5-5.0) g/dL 02/21/24 Range/Units 05:41 WBC (3.8-10.6) k/uL RBC (3.80-5.40) m/uL Hgb (11.4-16.0) gm/dL Hct (34.0-46.0) % MCV (80.0-100.0) fL MCH (25.0-35.0) pg MCHC (31.0-37.0) g/dL RDW (11.5-15.5) % Plt Count (150-450) k/uL MPV Neutrophils % % Lymphocytes % % Monocytes % % Eosinophils % % Basophils % % Neutrophils # (1.3-7.7) k/uL Lymphocytes # (1.0-4.8) k/uL Monocytes # (0-1.0) k/uL Eosinophils # (0-0.7) k/uL Basophils # (0-0.2) k/uL Hypochromasia Anisocytosis PT (10.0-12.5) sec INR (<1.2) APTT (22.0-30.0) sec Sodium (137-145) mmol/L Potassium (3.5-5.1) mmol/L Chloride (98-107) mmol/L Carbon Dioxide (22-30) mmol/L Anion Gap mmol/L BUN (7-17) mg/dL Creatinine (0.52-1.04) mg/dL Est GFR (CKD-EPI)AfAm (>60 ml/min/1.73 sqM) Est GFR (CKD-EPI)NonAf (>60 ml/min/1.73 sqM) Glucose (74-99) mg/dL Calcium (8.4-10.2) mg/dL Phosphorus (2.5-4.5) mg/dL Magnesium (1.6-2.3) mg/dL Total Bilirubin (0.2-1.3) mg/dL AST (14-36) U/L ALT (4-34) U/L Alkaline Phosphatase (38-126) U/L Troponin I 0.021 (0.000-0.034) ng/mL Total Protein (6.3-8.2) g/dL Albumin (3.5-5.0) g/dL - EKG Data -: EKG Interpreted by Me (Repeat EKG is a flutter 68 QRS 166 QTc 45) Critical Care Time Critical Care Time: Yes Total Critical Care Time: 31 Disposition Clinical Impression: Dysrhythmia, Atrial fibrillation with RVR, Heart failure Disposition: ADMITTED IP TO THIS HOSP Condition: Fair Is patient prescribed a controlled substance at d/c from ED?: No Time of Disposition: 06:30
[2024-02-21] MEDS: SODIUM CHLORIDE 0.9% 1,000 ML IV STA (05:55)
[2024-02-21] MEDS ORDERED: MORPHINE SULFATE 4 MG/ML SYRINGE IV PRN (06:03)
[2024-02-21] MEDS ORDERED: NALOXONE 0.4 MG/ML 1 ML VIAL IV PRN (06:03)
[2024-02-21 06:14] LABS: Anisocytosis Slight; Basophils % (A) 0 %; Eosinophils # (A) 0.1 k/uL (0-0.7); Eosinophils % (A) 2 %; HCT 39.7 % (34.0-46.0); HGB 12.3 gm/dL (11.4-16.0); Hypochromasia Moderate; INR 1.4 (<1.2); Lymphocytes # (A) 1.8 k/uL (1.0-4.8); Lymphocytes % (A) 26 %; MCV 87.2 fL (80.0-100.0); Mean Platelet Volume 9.2; Monocytes # (A) 0.4 k/uL (0-1.0); Monocytes % (A) 5 %; Neutrophils # (A) 4.4 k/uL (1.3-7.7); Neutrophils % (A) 65 %; Partial Thromboplastin Time 23.3 sec (22.0-30.0); Prothrombin Time 14.7 sec (10.0-12.5); RBC 4.55 m/uL (3.80-5.40); RDW 17.5 % (11.5-15.5); WBC 6.8 k/uL (3.8-10.6)
[2024-02-21 06:18] LABS: ALT 40 U/L (4-34); AST 31 U/L (14-36); African American GFR (CKD) 61 (>60 ml/min/1.73 sqM); Albumin 3.9 g/dL (3.5-5.0); Alkaline Phosphatase 108 U/L (38-126); Anion Gap 12 mmol/L; Blood Urea Nitrogen 26 mg/dL (7-17); Carbon Dioxide 19 mmol/L (22-30); Chloride 117 mmol/L (98-107); Glucose 174 mg/dL (74-99); Magnesium 1.8 mg/dL (1.6-2.3); Non-African American GFR(CKD) 53 (>60 ml/min/1.73 sqM); Phosphorus 4.5 mg/dL (2.5-4.5); Potassium 3.7 mmol/L (3.5-5.1); Sodium 148 mmol/L (137-145); Total Bilirubin 1.1 mg/dL (0.2-1.3); Total Protein 6.3 g/dL (6.3-8.2)
[2024-02-21 06:19] LABS: Platelet Count 189 k/uL (150-450)
[2024-02-21] MEDS: DILTIAZEM 125 MG in SODIUM CHLORIDE 0.9% 100 ML IV SCH (06:29)
[2024-02-21] MEDS: SODIUM CHLORIDE 0.9% 1,000 ML IV SCH (06:30)
[2024-02-21] MEDS: DILTIAZEM DRIP BOLUS FROM BAG 1 MG SOLN IV ONE (06:30)
[2024-02-21] MEDS ORDERED: NITROGLYCERIN SL TABS 0.4 MG TAB SUBLINGUAL PRN (08:37)
--- NOTE | 2024-02-21 09:05 | P.CRDCN ---
History of Present Illness Consult date: 02/21/24 Reason for Consult (text): A-fib with RVR History of present illness: This is a 68-year-old female with history of CAD status post CABG, ischemic cardiomyopathy, atrial fibrillation, known history of large thoracic aortic aneurysm measuring 7.5 x 5.9 cm with intramural thrombus. She was evaluated at [facility] and according to the patient was not felt to be a candidate for surgery or endovascular treatment. Has an appointment in the next 1 to [address] Arnol Grover. We have been asked to evaluate the patient for A-fib with RVR. Patient states that last evening she was sitting on the side of the bed and she started feeling her heart racing. She states that sometimes she can just lay down and this goes away but it did not at this time. She ended up coming into the hospital for further evaluation was started on Cardizem drip. Heart rate is currently controlled in atrial fibrillation and Cardizem drip is on hold. Patient had a recent hospitalization at the end of January at which time a LifeVest shocked her. She states she has not worn the LifeVest since she left the hospital. Patient denies having any palpitations, no chest pain, no lightheadedness or dizziness. She did have some shortness of breath during the RVR episode. Blood pressure 105/91, heart rate 137, pulse ox 97% on 2 L nasal cannula. -EKG: #1 atrial flutter 136 bpm. #2 atrial flutter 68 bpm right bundle branch block. -Laboratory studies: Hemoglobin 12.3, WBC 6.8. INR 1.4. Sodium 148, potassium 3.7, BUN 26, creatinine 1.08. Troponin negative x 1. TSH 2.94. -Home cardiac medications: Amiodarone 200 mg twice daily, Eliquis 5 mg twice daily, Lipitor 40 mg daily, Farxiga 10 mg daily, Lasix 40 mg daily, losartan 25 mg daily, Toprol-XL 150 mg daily, Nitrostat as needed, spironolactone 25 mg daily. -Echocardiogram performed 10/21/2023: EF 30 to 35%, mild to moderate mitral regurgitation, mild tricuspid regurgitation, moderate pulmonary hypertension, basal inferior wall is hypokinetic. Review Of Systems: At the time of my exam: CONSTITUTIONAL: Denies fever or chills. HEENT: Denies blurred vision, vision changes, or eye pain. Denies hemoptysis CARDIOVASCULAR: Denies chest pain. Denies orthopnea. Denies PND. Denies palpitations RESPIRATORY: Denies shortness of breath. GASTROINTESTINAL: Denies abdominal pain. Denies nausea or vomiting. HEMATOLOGIC: Denies bleeding disorders. GENITOURINARY: Denies any blood in urine. SKIN: Denies puritis. Denies rash. Physical examination: Gen: This is a 68-year-old female in no acute distress VS: reviewed HEENT: Head is atraumatic, normocephalic. Pupils equal, round. Sclerae is an icteric. NECK: Supple. No JVD. LUNGS: Clear to auscultation. No wheezes or rhonchi. No intercostal retractions. HEART: Irregular rate and rhythm. Systolic ejection murmur. ABDOMEN: Soft No tenderness. EXTREMITIES: No pedal edema. No calf tenderness. NEUROLOGICAL: Patient is awake, alert and oriented x3. Assessment: Permanent atrial fibrillation with RVR, now rate controlled History of ischemic cardiomyopathy with LifeVest History of coronary artery disease status post CABG Thoracic aortic aneurysm, patient not a candidate for surgical or endovascular procedure at [facility] Hyperlipidemia Plan: Resume patient's home cardiac medications Discontinue Cardizem drip Obtain limited echocardiogram to assess LV function Further recommendations to follow based upon clinical course At the time of discharge, patient will be following with Dr. Arnol Grover. Thank you kindly for this consultation. Nurse practitioner note has been reviewed, I agree with documented findings and plan of care. Patient was seen and examined. Past Medical History Past Medical History: Atrial Fibrillation, Asthma, Chest Pain / Angina History of Any Multi-Drug Resistant Organisms: None Reported Past Surgical History: No Surgical Hx Reported Additional Past Surgical History / Comment(s): "open heart surgery" Past Anesthesia/Blood Transfusion Reactions: No Reported Reaction Past Psychological History: No Psychological Hx Reported Smoking Status: Former smoker Past Alcohol Use History: None Reported Past Drug Use History: None Reported Medications and Allergies Home Medications Medication Instructions Recorded Confirmed Type Apixaban [Eliquis] 5 mg PO BID 01/16/24 02/21/24 History Furosemide [Lasix] 40 mg PO DAILY 01/16/24 02/21/24 History Nitroglycerin Sl Tabs [Nitrostat] 0.4 mg SUBLINGUAL Q5M PRN 01/16/24 02/21/24 History Budesonide-Formot 160-4.5 Mcg 2 puff INHALATION RT-BID 02/06/24 02/21/24 History [Symbicort 160-4.5 Mcg Inhaler] Amiodarone [Cordarone] 200 mg PO BID 14 Days #28 tab 02/10/24 02/21/24 Rx Atorvastatin [Lipitor] 40 mg PO DAILY 14 Days #14 tab 02/10/24 02/21/24 Rx Dapagliflozin Propanediol [Farxiga] 10 mg PO DAILY 14 Days #14 tab 02/10/24 02/21/24 Rx Losartan [Cozaar] 25 mg PO DAILY 14 Days #14 tab 02/10/24 02/21/24 Rx Spironolactone [Aldactone] 25 mg PO DAILY 14 Days #14 tab 02/10/24 02/21/24 Rx Metoprolol Succinate (ER) [Toprol 150 mg PO DAILY 02/21/24 02/21/24 History Xl] Allergies Allergy/AdvReac Type Severity Reaction Status Date / Time adhesive Allergy Rash/Hives Verified 02/21/24 08:34 Physical Exam Vitals: Vital Signs Temp Pulse Resp BP Pulse Ox 02/21/24 05:33 97.5 F L 137 H 18 105/91 97 Intake and Output 02/20/24 02/21/24 02/21/24 22:59 06:59 14:59 Other: Weight 61.235 kg Results 02/21/24 05:41 02/21/24 05:41 Cardiac Enzymes 02/21/24 02/21/24 Range/Units 05:41 05:41 AST 31 (14-36) U/L Troponin I 0.021 (0.000-0.034) ng/mL Coagulation 02/21/24 Range/Units 05:41 PT 14.7 H (10.0-12.5) sec APTT 23.3 (22.0-30.0) sec CBC 02/21/24 Range/Units 05:41 WBC 6.8 (3.8-10.6) k/uL RBC 4.55 (3.80-5.40) m/uL Hgb 12.3 (11.4-16.0) gm/dL Hct 39.7 (34.0-46.0) % Plt Count 189 D (150-450) k/uL Comprehensive Metabolic Panel 02/21/24 Range/Units 05:41 Sodium 148 H (137-145) mmol/L Potassium 3.7 (3.5-5.1) mmol/L Chloride 117 H (98-107) mmol/L Carbon Dioxide 19 L (22-30) mmol/L BUN 26 H (7-17) mg/dL Creatinine 1.08 H (0.52-1.04) mg/dL Glucose 174 H (74-99) mg/dL Calcium 9.0 (8.4-10.2) mg/dL AST 31 (14-36) U/L ALT 40 H (4-34) U/L Alkaline Phosphatase 108 (38-126) U/L Total Protein 6.3 (6.3-8.2) g/dL Albumin 3.9 (3.5-5.0) g/dL Current Medications Generic Name Dose Route Start Last Admin Trade Name Freq PRN Reason Stop Dose Admin Sodium Chloride 1,000 mls @ 75 mls/hr 02/21/24 06:15 02/21/24 06:30 Saline 0.9% IV 75 mls/hr .[id number] KAREL Administration Diltiazem HCl 125 mg/ Sodium 125 mls @ 5 mls/hr 02/21/24 06:15 02/21/24 06:29 Chloride IV 5 mg/hr .Q24H KAREL 5 mls/hr Administration 5 MG/HR Morphine Sulfate 4 mg 02/21/24 06:03 Morphine Sulfate 4 Mg/Ml Syringe IV Q4HR PRN Severe Pain (Scale 7 to 10) Naloxone HCl 0.2 mg 02/21/24 06:03 Naloxone 0.4 Mg/Ml 1 Ml Vial IV Q2M PRN Opioid Reversal Ondansetron HCl 4 mg 02/21/24 06:03 Ondansetron 4 Mg/2 Ml Vial IVP Q8HR PRN Nausea And Vomiting Intake and Output 02/20/24 02/21/24 02/21/24 22:59 06:59 14:59 Other: Weight 61.235 kg 02/21/24 05:41 02/21/24 05:41
[2024-02-21] MEDS: ATORVASTATIN 40 MG TAB PO SCH (09:34)
[2024-02-21] MEDS: AMIODARONE 200 MG TAB PO SCH (09:34)
[2024-02-21] MEDS: SPIRONOLACTONE 25 MG TAB PO SCH (09:34)
[2024-02-21] MEDS: APIXABAN 5 MG TAB PO SCH (09:34)
[2024-02-21] MEDS: METOPROLOL SUCCINATE (ER) 50 MG TAB.ER.24H PO SCH (09:35)
[2024-02-21] MEDS: DAPAGLIFLOZIN PROPANEDIOL 10 MG TABLET PO SCH (09:35)
[2024-02-21] MEDS: LOSARTAN 25 MG TAB PO SCH (09:35)
[2024-02-21] MEDS: FUROSEMIDE 40 MG TAB PO SCH (09:35)
[2024-02-21] MEDS: DEXTROSE 5% IN WATER 100 ML with AMIODARONE 150 MG IV ONE (13:19)
[2024-02-21] MEDS: AMIODARONE 200 MG TAB PO STA (13:19)
[2024-02-21] MEDS: POTASSIUM CHLORIDE ER 20 MEQ TAB.ER PO STA (13:19)
[2024-02-21] MEDS: ONDANSETRON 4 MG/2 ML VIAL IVP PRN (13:19)
[2024-02-21] MEDS: DEXTROSE 5%-0.45% NACL 1,000 ML IV SCH (13:31)
--- NOTE | 2024-02-22 07:02 | CA ---
Transthoracic Echo Report Name: Ruab Iyer Age: 68 Gender: F : 1955 Exam Date: 02/21/2024 15:21 Exam Location: [facility] Ht (in): 65 Wt (lb): 135 Ordering Physician: Angelina Meneses Attending/Referring Phys: [id number], Zaira Fireboat Operator Nory Tinoco RDCS Procedure CPT: Indications: LVF Cardiac Hx: Limited LVEF and valves Technical Quality: Good Contrast 1: Total Dose (mL): Contrast 2: Total Dose (mL): MEASUREMENTS (Male / Female) Normal Values 2D ECHO LV Diastolic Diameter PLAX 4.8 cm 4.2 - 5.9 / 3.9 - 5.3 cm LV Systolic Diameter PLAX 4.3 cm IVS Diastolic Thickness 1.0 cm 0.6 - 1.0 / 0.6 - 0.9 cm LVPW Diastolic Thickness 0.8 cm 0.6 - 1.0 / 0.6 - 0.9 cm LV Relative Wall Thickness 0.4 LVOT Diameter 1.9 cm LV Diastolic Volume MOD BP 130.6 cm??? 67 - 155 / 56 - 104 cm??? LV Systolic Volume MOD BP 111.2 cm??? 22 - 58 / 19 - 49 cm??? LV Ejection Fraction MOD BP 14.9 % >= 55 % LV Cardiac Index MOD BP 1447.2 cm???/min???m??? LV Diastolic Volume MOD 4C 120.6 cm??? LV Systolic Volume MOD 4C 102.1 cm??? LV Ejection Fraction MOD 4C 15.3 % LV Cardiac Index MOD 4C 1378.4 cm???/min???m??? LV Diastolic Length 4C 7.9 cm LV Systolic Length 4C 7.6 cm LV Diastolic Volume MOD 2C 139.6 cm??? LV Systolic Volume MOD 2C 119.1 cm??? LV Ejection Fraction MOD 2C 14.6 % LV Cardiac Index MOD 2C 1519.7 cm???/min???m??? LV Diastolic Length 2C 8.0 cm LV Systolic Length 2C 7.4 cm DOPPLER TR Peak Velocity 242.8 cm/s TR Peak Gradient 23.6 mmHg Right Atrial Pressure 20.0 mmHg Pulmonary Artery Systolic Pressu 43.6 mmHg Right Ventricular Systolic Press 43.6 mmHg FINDINGS Left Ventricle Left ventricular ejection fraction is estimated at 15 to 20 %. Moderately increased left ventricular diastolic volume. Severely increased left ventricular systolic volume. Severely decreased left ventricular ejection fraction. Severe global hypokinesis more noted on the apex Right Ventricle Right ventricular dilatation. Severely reduced right ventricular global systolic function. Mild to moderate pulmonary hypertension. Right Atrium Right atrial dilatation. Left Atrium Left atrial dilatation. Mitral Valve Mitral valve thickened. Moderate to severe mitral regurgitation. Eccentric mitral regurgitation jet.mitral annular calcification. Aortic Valve Aortic valve not well visualized. No aortic valve stenosis or regurgitation. Tricuspid Valve Structurally normal tricuspid valve. [id number] tricuspid regurgitation. Pulmonic Valve Pulmonic valve not well visualized. Pericardium No pericardial effusion. Aorta Aortic root and proximal ascending aorta not assessed. CONCLUSIONS 1. Severe impairment of the left ventricular systolic function 2. Moderate to severe mitral regurgitation 3. Mild to moderate tricuspid regurgitation Previewed by: Dr. Yaquelin Tellez MD (Electronically Signed) Final Date: 22 February 2024 07:01
[2024-02-22 08:04] LABS: Anisocytosis Slight; Basophils % (A) 0 %; Eosinophils # (A) 0.3 k/uL (0-0.7); Eosinophils % (A) 4 %; HCT 40.2 % (34.0-46.0); HGB 12.3 gm/dL (11.4-16.0); Hypochromasia Marked; Lymphocytes # (A) 1.6 k/uL (1.0-4.8); Lymphocytes % (A) 19 %; MCH 27.1 pg (25.0-35.0); MCHC 30.6 g/dL (31.0-37.0); MCV 88.4 fL (80.0-100.0); Mean Platelet Volume 9.2; Monocytes # (A) 0.5 k/uL (0-1.0); Monocytes % (A) 6 %; Neutrophils # (A) 5.9 k/uL (1.3-7.7); Neutrophils % (A) 69 %; Platelet Count 183 k/uL (150-450); RBC 4.54 m/uL (3.80-5.40); RDW 17.4 % (11.5-15.5); WBC 8.6 k/uL (3.8-10.6)
[2024-02-22 08:46] LABS: ALT 34 U/L (4-34); AST 23 U/L (14-36); African American GFR (CKD) 59 (>60 ml/min/1.73 sqM); Albumin 3.6 g/dL (3.5-5.0); Alkaline Phosphatase 93 U/L (38-126); Anion Gap 9 mmol/L; Blood Urea Nitrogen 24 mg/dL (7-17); Calcium 8.9 mg/dL (8.4-10.2); Carbon Dioxide 18 mmol/L (22-30); Chloride 118 mmol/L (98-107); Glucose 121 mg/dL (74-99); Lipase 31 U/L (23-300); Magnesium 1.7 mg/dL (1.6-2.3); Non-African American GFR(CKD) 51 (>60 ml/min/1.73 sqM); Phosphorus 3.7 mg/dL (2.5-4.5); Potassium 4.1 mmol/L (3.5-5.1); Sodium 145 mmol/L (137-145); Total Bilirubin 1.2 mg/dL (0.2-1.3); Total Protein 5.8 g/dL (6.3-8.2)
--- NOTE | 2024-02-22 11:40 | P.PN ---
Subjective Progress Note Date: 02/22/24 Reason for Consult (text): A-fib with RVR History of present illness: This is a 68-year-old female with history of CAD status post CABG, ischemic cardiomyopathy, atrial fibrillation, known history of large thoracic aortic aneurysm measuring 7.5 x 5.9 cm with intramural thrombus. She was evaluated at [facility] and according to the patient was not felt to be a candidate for surgery or endovascular treatment. Has an appointment in the next 1 to [address] Arnol Grover. We have been asked to evaluate the patient for A-fib with RVR. Patient states that last evening she was sitting on the side of the bed and she started feeling her heart racing. She states that sometimes she can just lay down and this goes away but it did not at this time. She ended up coming into the hospital for further evaluation was started on Cardizem drip. H eart rate is currently controlled in atrial fibrillation and Cardizem drip is on hold. Patient had a recent hospitalization at the end of January at which time a LifeVest shocked her. She states she has not worn the LifeVest since she left the hospital. Patient denies having any palpitations, no chest pain, no lightheadedness or dizziness. She did have some shortness of breath during the RVR episode. Blood pressure 105/91, heart rate 137, pulse ox 97% on 2 L nasal cannula. -EKG: #1 atrial flutter 136 bpm. #2 atrial flutter 68 bpm right bundle branch block. -Laboratory studies: Hemoglobin 12.3, WBC 6.8. INR 1.4. Sodium 148, potassium 3.7, BUN 26, creatinine 1.08. Troponin negative x 1. TSH 2.94. -Home cardiac medications: Amiodarone 200 mg twice daily, Eliquis 5 mg twice daily, Lipitor 40 mg daily, Farxiga 10 mg daily, Lasix 40 mg daily, losartan 25 mg daily, Toprol-XL 150 mg daily, Nitrostat as needed, spironolactone 25 mg daily. -Echocardiogram performed 10/21/2023: EF 30 to 35%, mild to moderate mitral regurgitation, mild tricuspid regurgitation, moderate pulmonary hypertension, basal inferior wall is hypokinetic. 02/22/2024 Patient seen and examined. Patient is now on the cardiac stepdown unit. Patient was continued on IV fluids overnight and now in heart failure. IV fluids will be discontinued and patient started on IV Lasix. Patient denies any history of cardioversion. Her echocardiogram came back with EF of 15 to 20% with moderate to severe MR and mild TR. Patient remains in atrial fibrillation with controlled ventricular rate. Blood pressure 99/67, heart rate 95. Nursing to request family bring in patient's LifeVest from home. Physical examination: Gen: This is a 68-year-old female in no acute distress VS: reviewed HEENT: Head is atraumatic, normocephalic. Pupils equal, round. Sclerae is anicteric. NECK: Supple. No JVD. LUNGS: Diminished bilaterally. No intercostal retractions. HEART: Irregular rate and rhythm. Systolic ejection murmur. ABDOMEN: Soft No tenderness. EXTREMITIES: No pedal edema. No calf tenderness. NEUROLOGICAL: Patient is awake, alert and oriented x3. Assessment: Permanent atrial fibrillation with RVR, now rate controlled Acute systolic heart failure History of ischemic cardiomyopathy with LifeVest noncompliance History of coronary artery disease status post CABG Thoracic aortic aneurysm, patient not a candidate for surgical or endovascular procedure at [facility] Hyperlipidemia Plan: Continue patient's home cardiac medications: Amiodarone 200 mg twice daily, Eliquis 5 mg twice daily, Farxiga 10 mg daily, losartan 25 mg daily, Toprol-XL 150 mg daily, spironolactone 25 mg daily Patient will be started on IV Lasix 40 mg every 8 hours Monitor KAREEM, daily weights, electrolytes and renal function Family to bring and LifeVest from home Further recommendations to follow based upon clinical course At the time of discharge, patient will be following with Dr. Arnol Grover. Patient has an appointment scheduled in the next 1 to 2 weeks. Nurse practitioner note has been reviewed, I agree with documented findings and plan of care. Patient was seen and examined. Objective - Vital Signs Vital signs: Vital Signs Temp 97.5 F L 02/22/24 03:47 Pulse 52 L 02/22/24 03:47 Resp 16 02/22/24 03:47 BP 99/67 02/22/24 03:47 Pulse Ox 95 02/22/24 03:47 FiO2 Intake & Output 02/21/24 02/22/24 02/22/24 18:59 06:59 18:59 Intake Total 1280 Output Total 800 Balance 480 Weight 61.235 kg 74.7 kg Intake: Intake, IV Titration 400 Amount Dextrose 5% in Water 100 100 ml @ 618 mls/hr IV .Q10M ONE with Amiodarone 150 mg Rx#:[id number] Dextrose 5%-0.45% NaCl 1, 300 000 ml @ 50 mls/hr IV . Q20H KAREL Rx#:[id number] Oral 880 Output: Urine 800 Other: # Voids 3 - Labs CBC & Chem 7: 02/22/24 07:11 02/22/24 07:11 Labs: Abnormal Lab Results - Last 24 Hours (Table) 02/22/24 02/22/24 Range/Units 07:11 07:11 MCHC 30.6 L (31.0-37.0) g/dL RDW 17.4 H (11.5-15.5) % Chloride 118 H (98-107) mmol/L Carbon Dioxide 18 L (22-30) mmol/L BUN 24 H (7-17) mg/dL Creatinine 1.11 H (0.52-1.04) mg/dL Glucose 121 H (74-99) mg/dL Total Protein 5.8 L (6.3-8.2) g/dL
--- NOTE | 2024-02-22 13:54 | P.HPIM ---
History of Present Illness H&P Date: 02/22/24 History of present illness; patient is a 68-year-old lady with past medical history significant for CAD status post CABG, ischemic cardiomyopathy, atrial fibrillation, known history of large thoracic aortic aneurysm measuring 7.5 x 5.9 cm with intramural thrombus who presented to the ER because of palpitation. Patient stated that she was all right 1 day back when started noticing that her heart rate going up and she was having palpitations. Patient also complaining of dizziness and lightheadedness. There was no complaint of chest pain. Patient denied any shortness of breath. There was no complaint of orthopnea or PND. Because of this feeling of racing of heart, patient came to the ER Initial lab work done in the ER showed WB 6.8, hemoglobin 12.3, platelet count 189, sodium 140, potassium 3.7, BUN 26, creatinine 1.08, glucose 174, calcium 9, magnesium 1.8, bilirubin 1.1, AST 31, ALT 40, troponin 0.021, TSH 2.94 EKG done in the ER showed heart rate of 68 , irregular in rhythm, no ST segment elevation or depression seen, no T-wave inversions seen. Patient admitted to internal medicine service REVIEW OF SYSTEMS: CONSTITUTIONAL: No fever, no malaise, no fatigue. HEENT: No recent visual problems or hearing problems. Denied any sore throat. CARDIOVASCULAR: As mentioned above PULMONARY: As mentioned above GASTROINTESTINAL: No diarrhea, no nausea, no vomiting, no abdominal pain. NEUROLOGICAL: No headaches, no weakness, no numbness. HEMATOLOGICAL: Denies any bleeding or petechiae. GENITOURINARY: Denies any burning micturition, frequency, or urgency. MUSCULOSKELETAL/RHEUMATOLOGICAL: Denies any joint pain, swelling, or any muscle pain. ENDOCRINE: Denies any polyuria or polydipsia. The rest of the 14-point review of systems is negative. PHYSICAL EXAMINATION: GENERAL: The patient is alert and oriented x3, not in any acute distress. Well developed, well nourished. HEENT: Pupils are round and equally reacting to light. EOMI. No scleral icterus. No conjunctival pallor. Normocephalic, atraumatic. No pharyngeal erythema. No thyromegaly. CARDIOVASCULAR: S1 and S2 present. No murmurs, rubs, or gallops. PULMONARY: Chest is clear to auscultation, no wheezing or crackles. ABDOMEN: Soft, nontender, nondistended, normoactive bowel sounds. No palpable organomegaly. MUSCULOSKELETAL: No joint swelling or deformity. EXTREMITIES: No cyanosis, clubbing, or pedal edema. NEUROLOGICAL: Gross neurological examination did not reveal any focal deficits. SKIN: No rashes. Assessment and plan Permanent atrial fibrillation with RVR History of ischemic cardiomyopathy with LifeVest History of coronary artery disease status post CABG Thoracic aortic aneurysm, patient not a candidate for surgical or endovascular procedure at [facility] Hyperlipidemia Monitor vital signs Monitor CBC Monitor CMP Continue telemetry monitoring Ordered serial troponin Order Cardizem drip Ordered 2D echo Resume home medicine consult cardiology Labs and medication were reviewed.. Continue same treatment. Continue with symptomatic treatment. Resume home medication. Monitor labs and vitals. DVT and GI prophylaxis. Further recommendations as per clinical course of the patient Dictation was produced using [employer] dictation software. please excuse any grammatical, word or spelling errors. Past Medical History Past Medical History: Atrial Fibrillation, Asthma, Chest Pain / Angina History of Any Multi-Drug Resistant Organisms: None Reported Past Surgical History: No Surgical Hx Reported Additional Past Surgical History / Comment(s): "open heart surgery" Past Anesthesia/Blood Transfusion Reactions: No Reported Reaction Past Psychological History: No Psychological Hx Reported Smoking Status: Former smoker Past Alcohol Use History: None Reported Past Drug Use History: None Reported Medications and Allergies Home Medications Medication Instructions Recorded Confirmed Type Apixaban [Eliquis] 5 mg PO BID 01/16/24 02/21/24 History Furosemide [Lasix] 40 mg PO DAILY 01/16/24 02/21/24 History Nitroglycerin Sl Tabs [Nitrostat] 0.4 mg SUBLINGUAL Q5M PRN 01/16/24 02/21/24 History Budesonide-Formot 160-4.5 Mcg 2 puff INHALATION RT-BID 02/06/24 02/21/24 History [Symbicort 160-4.5 Mcg Inhaler] Amiodarone [Cordarone] 200 mg PO BID 14 Days #28 tab 02/10/24 02/21/24 Rx Atorvastatin [Lipitor] 40 mg PO DAILY 14 Days #14 tab 02/10/24 02/21/24 Rx Dapagliflozin Propanediol [Farxiga] 10 mg PO DAILY 14 Days #14 tab 02/10/24 02/21/24 Rx Losartan [Cozaar] 25 mg PO DAILY 14 Days #14 tab 02/10/24 02/21/24 Rx Spironolactone [Aldactone] 25 mg PO DAILY 14 Days #14 tab 02/10/24 02/21/24 Rx Metoprolol Succinate (ER) [Toprol 150 mg PO DAILY 02/21/24 02/21/24 History Xl] Allergies Allergy/AdvReac Type Severity Reaction Status Date / Time adhesive Allergy Rash/Hives Verified 02/21/24 08:34 Physical Exam Vitals: Vital Signs Temp Pulse Resp BP BP Pulse Ox 02/22/24 08:00 98.3 F 115 H 16 117/77 94 L 02/22/24 03:47 97.5 F L 52 L 16 99/67 95 02/22/24 01:22 122 H 16 02/21/24 23:29 97.6 F 122 H 16 104/66 94 L 02/21/24 20:00 97.6 F 69 16 97/67 93 L 02/21/24 16:00 97.2 F L 80 16 126/70 96 02/21/24 12:00 98.0 F 131 H 22 90/70 98 Intake and Output 02/21/24 02/22/24 02/22/24 22:59 06:59 14:59 Intake Total 1280 Output Total 800 Balance 480 Intake: Intake, IV Titration 400 Amount Dextrose 5% in Water 100 100 ml @ 618 mls/hr IV .Q10M ONE with Amiodarone 150 mg Rx#:[id number] Dextrose 5%-0.45% NaCl 1, 300 000 ml @ 50 mls/hr IV . Q20H [facility] Rx#:[id number] Oral 880 Output: Urine 800 Other: # Voids 2 3 Weight 74.7 kg Results CBC & Chem 7: 02/22/24 07:11 02/22/24 07:11 Labs: Abnormal Lab Results - Last 24 Hours (Table) 02/22/24 02/22/24 Range/Units 07:11 07:11 MCHC 30.6 L (31.0-37.0) g/dL RDW 17.4 H (11.5-15.5) % Chloride 118 H (98-107) mmol/L Carbon Dioxide 18 L (22-30) mmol/L BUN 24 H (7-17) mg/dL Creatinine 1.11 H (0.52-1.04) mg/dL Glucose 121 H (74-99) mg/dL Total Protein 5.8 L (6.3-8.2) g/dL Thrombosis Risk Factor Assmnt - Choose All That Apply Each Risk Factor Represents 2 Points: Age 61-74 years Other congenital or acquired thrombophilia - If yes, enter type in comment: No Thrombosis Risk Factor Assessment Total Risk Factor Score: 2 Thrombosis Risk Factor Assessment Level: Low Risk
[2024-02-22] MEDS: FUROSEMIDE 10 MG/ML 4 ML VIAL IV STA (14:57)
[2024-02-22] MEDS: FUROSEMIDE 10 MG/ML 4 ML VIAL IV SCH (15:10)
[2024-02-23 08:54] VITALS: RESP 18; TEMP 97.7
--- NOTE | 2024-02-23 12:51 | P.DS ---
Providers Date of admission: 02/21/24 06:03 Expected date of discharge: 02/23/24 Attending physician: Elizabet Gongora Consults: 02/21/24 06:03 Consult Physician Routine Consulting Provider: Yaquelin Tellez Consult Reason/Comments: [email or web address] Do you want consulting provider notified?: Yes Primary care physician: Lorenza Rendonnjpallavi [facility] Course: Discharge diagnoses; Permanent atrial fibrillation with RVR History of ischemic cardiomyopathy with LifeVest History of coronary artery disease status post CABG Thoracic aortic aneurysm, patient not a candidate for surgical or endovascular procedure at [facility] Hyperlipidemia Hospital course; patient is a 68-year-old lady with past medical history significant for CAD status post CABG, ischemic cardiomyopathy, atrial fibrillation, known history of large thoracic aortic aneurysm measuring 7.5 x 5.9 cm with intramural thrombus who presented to the ER because of palpitation. Patient stated that she was all right 1 day back when started noticing that her heart rate going up and she was having palpitations. Patient also complaining of dizziness and lightheadedness. There was no complaint of chest pain. Patient denied any shortness of breath. There was no complaint of orthopnea or PND. Because of this feeling of racing of heart, patient came to the ER Initial lab work done in the ER showed WB 6.8, hemoglobin 12.3, platelet count 189, sodium 140, potassium 3.7, BUN 26, creatinine 1.08, glucose 174, calcium 9, magnesium 1.8, bilirubin 1.1, AST 31, ALT 40, troponin 0.021, TSH 2.94 EKG done in the ER showed heart rate of 68 , irregular in rhythm, no ST segment elevation or depression seen, no T-wave inversions seen. Patient admitted to internal medicine service 02/22. Patient seen and examined. Cardiology recommended discharging patient on amiodarone 200 g twice a day and Lasix 80 mg the morning and 40 at afternoon. Patient to follow-up outpatient with cardiology PHYSICAL EXAMINATION: GENERAL: The patient is alert and oriented x3, not in any acute distress. Well developed, well nourished. HEENT: Pupils are round and equally reacting to light. EOMI. No scleral icterus. No conjunctival pallor. Normocephalic, atraumatic. No pharyngeal erythema. No thyromegaly. CARDIOVASCULAR: S1 and S2 present. No murmurs, rubs, or gallops. PULMONARY: Chest is clear to auscultation, no wheezing or crackles. ABDOMEN: Soft, nontender, nondistended, normoactive bowel sounds. No palpable organomegaly. MUSCULOSKELETAL: No joint swelling or deformity. EXTREMITIES: No cyanosis, clubbing, or pedal edema. NEUROLOGICAL: Gross neurological examination did not reveal any focal deficits. SKIN: No rashes. Dictation was produced using [email or web address] dictation software. please excuse any grammatical, word or spelling errors. Patient Condition at Discharge: Fair Plan - Discharge Summary Discharge Rx Participant: Yes New Discharge Prescriptions: New Furosemide [Lasix] 40 mg PO 1600 #30 tab Furosemide [Lasix] 80 mg PO DAILY 30 Days #30 tab Continue Nitroglycerin Sl Tabs [Nitrostat] 0.4 mg SUBLINGUAL Q5M PRN PRN Reason: Chest Pain Budesonide-Formot 160-4.5 Mcg [Symbicort 160-4.5 Mcg Inhaler] 2 puff INHALATION RT-BID Atorvastatin [Lipitor] 40 mg PO DAILY 14 Days #14 tab Apixaban [Eliquis] 5 mg PO BID Spironolactone [Aldactone] 25 mg PO DAILY 14 Days #14 tab Amiodarone [Cordarone] 200 mg PO BID 14 Days #28 tab Losartan [Cozaar] 25 mg PO DAILY 14 Days #14 tab Dapagliflozin Propanediol [Farxiga] 10 mg PO DAILY 14 Days #14 tab Metoprolol Succinate (ER) [Toprol XL] 150 mg PO DAILY Discontinued Furosemide [Lasix] 40 mg PO DAILY Discharge Medication List Apixaban [Eliquis] 5 mg PO BID 01/16/24 [History] Nitroglycerin Sl Tabs [Nitrostat] 0.4 mg SUBLINGUAL Q5M PRN 01/16/24 [History] Budesonide-Formot 160-4.5 Mcg [Symbicort 160-4.5 Mcg Inhaler] 2 puff INHALATION RT-BID 02/06/24 [History] Amiodarone [Cordarone] 200 mg PO BID 14 Days #28 tab 02/10/24 [Rx] Atorvastatin [Lipitor] 40 mg PO DAILY 14 Days #14 tab 02/10/24 [Rx] Dapagliflozin Propanediol [Farxiga] 10 mg PO DAILY 14 Days #14 tab 02/10/24 [Rx] Losartan [Cozaar] 25 mg PO DAILY 14 Days #14 tab 02/10/24 [Rx] Spironolactone [Aldactone] 25 mg PO DAILY 14 Days #14 tab 02/10/24 [Rx] Metoprolol Succinate (ER) [Toprol XL] 150 mg PO DAILY 02/21/24 [History] Furosemide [Lasix] 40 mg PO 1600 #30 tab 02/23/24 [Rx] Furosemide [Lasix] 80 mg PO DAILY 30 Days #30 tab 02/23/24 [Rx] Follow up Appointment(s)/Referral(s): Lorenza Christopher MD [Primary Care Provider] - 1-2 days Martinez Grover MD [STAFF PHYSICIAN] - 1 Week Activity/Diet/Wound Care/Special Instructions: [facility] [phone] Take 80 mg of Lasix in the morning and 40 mg of Lasix at 4 PM Discharge Disposition: HOME SELF-CARE
[2024-02-23 14:03] VITALS: BP 98/63; PULSE 115
--- NOTE | 2024-02-23 14:50 | P.PN ---
Subjective Progress Note Date: 02/23/24 Reason for Consult (text): A-fib with RVR History of present illness: This is a 68-year-old female with history of CAD status post CABG, ischemic cardiomyopathy, atrial fibrillation, known history of large thoracic aortic aneurysm measuring 7.5 x 5.9 cm with intramural thrombus. She was evaluated at [facility] and according to the patient was not felt to be a candidate for surgery or endovascular treatment. Has an appointment in the next 1 [address] Arnol Grover. We have been asked to evaluate the patient for A-fib with RVR. Patient states that last evening she was sitting on the side of the bed and she started feeling her heart racing. She states that sometimes she can just lay down and this goes away but it did not at this time. She ended up coming into the hospital for further evaluation was started on Cardizem drip. H eart rate is currently controlled in atrial fibrillation and Cardizem drip is on hold. Patient had a recent hospitalization at the end of January at which time a LifeVest shocked her. She states she has not worn the LifeVest since she left the hospital. Patient denies having any palpitations, no chest pain, no lightheadedness or dizziness. She did have some shortness of breath during the RVR episode. Blood pressure 105/91, heart rate 137, pulse ox 97% on 2 L nasal cannula. -EKG: #1 atrial flutter 136 bpm. #2 atrial flutter 68 bpm right bundle branch block. -Laboratory studies: Hemoglobin 12.3, WBC 6.8. INR 1.4. Sodium 148, potassium 3.7, BUN 26, creatinine 1.08. Troponin negative x 1. TSH 2.94. -Home cardiac medications: Amiodarone 200 mg twice daily, Eliquis 5 mg twice daily, Lipitor 40 mg daily, Farxiga 10 mg daily, Lasix 40 mg daily, losartan 25 mg daily, Toprol-XL 150 mg daily, Nitrostat as needed, spironolactone 25 mg daily. -Echocardiogram performed 10/21/2023: EF 30 to 35%, mild to moderate mitral regurgitation, mild tricuspid regurgitation, moderate pulmonary hypertension, basal inferior wall is hypokinetic. 02/22/2024 Patient seen and examined. Patient is now on the cardiac stepdown unit. Patient was continued on IV fluids overnight and now in heart failure. IV fluids will be discontinued and patient started on IV Lasix. Patient denies any history of cardioversion. Her echocardiogram came back with EF of 15 to 20% with moderate to severe MR and mild TR. Patient remains in atrial fibrillation with controlled ventricular rate. Blood pressure 99/67, heart rate 95. Nursing to request family bring in patient's LifeVest from home. 02/23/2024 Patient seen and examined. Patient states that she is a lot better today from yesterday. No chest pain or shortness of breath. She still has episodes of RVR up to 120s with activity. Patient is already on high-dose beta-alex and also on amiodarone which will be continued. Patient is on IV Lasix which will be transition to oral. Discussed LifeVest with patient and the need for her to wear this. Patient is fully aware that she has a low EF and LifeVest is very important to prevent sudden . Patient understands that because of her low EF, she is at high risk for sudden syndrome. Physical examination: Gen: This is a 68-year-old female in no acute distress VS: reviewed HEENT: Head is atraumatic, normocephalic. Pupils equal, round. Sclerae is anicteric. NECK: Supple. No JVD. LUNGS: Diminished bilaterally. No intercostal retractions. HEART: Irregular rate and rhythm. Systolic ejection murmur. ABDOMEN: Soft No tenderness. EXTREMITIES: No pedal edema. No calf tenderness. NEUROLOGICAL: Patient is awake, alert and oriented x3. Assessment: Permanent atrial fibrillation with RVR, now rate controlled Acute systolic heart failure History of ischemic cardiomyopathy with LifeVest noncompliance History of coronary artery disease status post CABG Thoracic aortic aneurysm, patient not a candidate for surgical or endovascular procedure at [facility] Hyperlipidemia Plan: Continue patient's home cardiac medications: Amiodarone 200 mg twice daily, Eliquis 5 mg twice daily, Farxiga 10 mg daily, losartan 25 mg daily, Toprol-XL 150 mg daily, spironolactone 25 mg daily Transition IV Lasix to oral 80 mg in the morning and 40 mg in the afternoon Continue LifeVest at home Patient is cleared for discharge and will be following with Dr. Arnol Grover. Patient has an appointment scheduled in the next 1 to 2 weeks. Nurse practitioner note has been reviewed, I agree with documented findings and plan of care. Patient was seen and examined. Objective - Vital Signs Vital signs: Vital Signs Temp 97.7 F 02/23/24 08:00 Pulse 115 H 02/23/24 14:00 Resp 18 02/23/24 14:00 BP 98/63 02/23/24 12:00 Pulse Ox 93 L 02/23/24 12:00 FiO2 Intake & Output 02/22/24 02/23/24 02/23/24 18:59 06:59 18:59 Intake Total 118 20 128 Balance 118 20 128 Weight 74.9 kg Intake: IV 20 10 Invasive Line 2 20 10 Oral 118 118 Other: # Voids 3 1 1 - Labs CBC & Chem 7: 02/22/24 07:11 02/22/24 07:11
[2024-02-23] MEDS ORDERED: FUROSEMIDE 40 MG TAB PO SCH (16:00)
[2024-02-24] MEDS ORDERED: FUROSEMIDE 80 MG TAB PO SCH (09:00)
== END 2024-02-23 15:03 | disposition home or self-care (01) | DRG 308 ==
LOC: EC 05:30 → 3SCARD 06:03
PROVIDERS: ADMIT Hospitalist; ATTEND Hospitalist
DX: I48.21 Permanent atrial fibrillation (principal); I50.21 Acute systolic (congestive) heart failure; I27.22 Pulmonary hypertension due to left heart disease; Z95.1 Presence of aortocoronary bypass graft; I71.20 Thoracic aortic aneurysm, without rupture, unspecified; I08.1 Rheumatic disorders of both mitral and tricuspid valves; I25.5 Ischemic cardiomyopathy; I25.10 Atherosclerotic heart disease of native coronary artery without angina pectoris; E78.5 Hyperlipidemia, unspecified; Z79.01 Long term (current) use of anticoagulants; Z91.198 Patient's noncompliance with other medical treatment and regimen for other reason; Z87.891 Personal history of nicotine dependence; Z79.51 Long term (current) use of inhaled steroids; Z79.899 Other long term (current) drug therapy; Z79.84 Long term (current) use of oral hypoglycemic drugs
CPT/HCPCS: 36415; 80053; 83690; 83735; 84100; 84443; 84484; 85025; 85610; 85730; 93005; 93308; 96361; 96365; 96366; 96367; 96375; 99291

== ENCOUNTER 2024-03-07 03:18 | Emergency (ER) | payer MEDICARE ==
[2024-03-07 04:09] LABS: Anisocytosis Slight; Basophils % (A) 1 %; Eosinophils # (A) 0.1 k/uL (0-0.7); Eosinophils % (A) 2 %; HCT 40.8 % (34.0-46.0); HGB 12.9 gm/dL (11.4-16.0); Hypochromasia Moderate; Lymphocytes # (A) 1.6 k/uL (1.0-4.8); Lymphocytes % (A) 26 %; MCH 27.6 pg (25.0-35.0); MCHC 31.6 g/dL (31.0-37.0); MCV 87.2 fL (80.0-100.0); Mean Platelet Volume 10.3; Monocytes # (A) 0.4 k/uL (0-1.0); Monocytes % (A) 7 %; Neutrophils # (A) 3.9 k/uL (1.3-7.7); Neutrophils % (A) 63 %; Platelet Count 129 k/uL (150-450); RBC 4.68 m/uL (3.80-5.40); RDW 16.9 % (11.5-15.5); WBC 6.2 k/uL (3.8-10.6)
[2024-03-07 04:22] LABS: ALT 15 U/L (4-34); AST 22 U/L (14-36); African American GFR (CKD) 42 (>60 ml/min/1.73 sqM); Albumin 4.2 g/dL (3.5-5.0); Alkaline Phosphatase 89 U/L (38-126); Amylase 34 U/L (30-110); Anion Gap 14 mmol/L; Blood Urea Nitrogen 34 mg/dL (7-17); Calcium 10.3 mg/dL (8.4-10.2); Carbon Dioxide 18 mmol/L (22-30); Chloride 112 mmol/L (98-107); Glucose 157 mg/dL (74-99); Lipase 44 U/L (23-300); Non-African American GFR(CKD) 36 (>60 ml/min/1.73 sqM); Potassium 4.8 mmol/L (3.5-5.1); Sodium 144 mmol/L (137-145); Total Bilirubin 1.4 mg/dL (0.2-1.3); Total Protein 6.8 g/dL (6.3-8.2)
--- NOTE | 2024-03-07 04:56 | ED ---
General Adult HPI - General Chief complaint: Abdominal Pain Stated complaint: abd pain Time Seen by Provider: 03/07/24 03:26 Source: patient, EMS, RN notes reviewed, old records reviewed Mode of arrival: EMS Limitations: no limitations - History of Present Illness Initial comments: 68-year-old female presenting for evaluation of abdominal discomfort which began several hours prior to arrival and is currently resolved. Patient states this occurred after taking medication. She had some mild associated nausea without vomiting. No diarrhea. No fever. No chest pain or dyspnea. - Related Data Home Medications Medication Instructions Recorded Confirmed Apixaban [Eliquis] 5 mg PO BID 01/16/24 02/21/24 Nitroglycerin Sl Tabs [Nitrostat] 0.4 mg SUBLINGUAL Q5M PRN 01/16/24 02/21/24 Budesonide-Formot 160-4.5 Mcg 2 puff INHALATION RT-BID 02/06/24 02/21/24 [Symbicort 160-4.5 Mcg Inhaler] Metoprolol Succinate (ER) [Toprol 150 mg PO DAILY 02/21/24 02/21/24 XL] Previous Rx's Medication Instructions Recorded Amiodarone [Cordarone] 200 mg PO BID 14 Days #28 tab 02/10/24 Atorvastatin [Lipitor] 40 mg PO DAILY 14 Days #14 tab 02/10/24 Dapagliflozin Propanediol [Farxiga] 10 mg PO DAILY 14 Days #14 tab 02/10/24 Losartan [Cozaar] 25 mg PO DAILY 14 Days #14 tab 02/10/24 Spironolactone [Aldactone] 25 mg PO DAILY 14 Days #14 tab 02/10/24 Furosemide [Lasix] 40 mg PO 1600 #30 tab 02/23/24 Furosemide [Lasix] 80 mg PO DAILY 30 Days #30 tab 02/23/24 Allergies Allergy/AdvReac Type Severity Reaction Status Date / Time adhesive Allergy Rash/Hives Verified 03/07/24 03:24 Review of Systems ROS Statement: Those systems with pertinent positive or pertinent negative responses have been documented in the HPI. ROS Other: All systems not noted in ROS Statement are negative. Past Medical History Past Medical History: Atrial Fibrillation, Asthma, Chest Pain / Angina History of Any Multi-Drug Resistant Organisms: None Reported Past Surgical History: No Surgical Hx Reported Additional Past Surgical History / Comment(s): "open heart surgery" Past Anesthesia/Blood Transfusion Reactions: No Reported Reaction Past Psychological History: No Psychological Hx Reported Smoking Status: Former smoker Past Alcohol Use History: None Reported Past Drug Use History: None Reported General Exam Limitations: no limitations General appearance: alert, in no apparent distress Head exam: Present: atraumatic, normocephalic Eye exam: Present: normal appearance, PERRL ENT exam: Present: normal exam Neck exam: Present: normal inspection. Absent: tenderness, meningismus Respiratory exam: Present: normal lung sounds bilaterally. Absent: respiratory distress, wheezes Cardiovascular Exam: Present: normal rhythm, tachycardia GI/Abdominal exam: Present: soft. Absent: distended, tenderness, guarding, rebound Neurological exam: Present: alert, oriented X3, CN II-XII intact. Absent: motor sensory deficit Psychiatric exam: Present: normal affect, normal mood Skin exam: Present: warm, dry, intact. Absent: cyanosis, diaphoretic Course Vital Signs 03/07/24 03/07/24 03/07/24 03:20 03:26 05:00 Temperature 98.1 F Pulse Rate 114 H 116 H Respiratory 18 20 Rate Blood Pressure 84/35 123/78 110/82 O2 Sat by Pulse 90 L 95 98 Oximetry - Reevaluation(s) Reevaluation #1: 03/07/24 05:47 Patient has no further abdominal pain while in the emergency department. No acute complaints. Eager for discharge. Medical Decision Making - Medical Decision Making Was pt. sent in by a medical professional or institution (, PA, [facility], urgent care, hospital, or detention...) When possible be specific @ -No Did you speak to anyone other than the patient for history (EMS, parent, family, police, friend...)? What history was obtained from this source @ -No Did you review nursing and triage notes (agree or disagree)? Why? @ -I reviewed and agree with nursing and triage notes Were old charts reviewed (outside hosp., previous admission, EMS record, old EKG, old radiological studies, urgent care reports/EKG's, detention records)? Report findings @ -No old charts were reviewed Differential Abdominal Pain Women: Appendicitis, Cholecystitis, diverticulosis, ischemic bowel, pancreatitis, hepatitis, UTI, gastroenteritis, AAA, incarcerated hernia, bowel obstruction, constipation, inflammatory bowel, hepatitis, peptic ulcer disease, splenic infarction, perforated viscus, vulvitis, ovarian torsion, PID, kidney stone, placenta abruption, this is not meant to be an all-inclusive list EKG interpreted by me (3pts min.). @Sinus tachycardia with a first-degree AV block right bundle branch block rate of 116, [place] interval 244, QRS duration 165, QTc 49 X-rays interpreted by me (1pt min.). @ -None done CT interpreted by me (1pt min.). @ -None done U/S interpreted by me (1pt. min.). @ -None done What testing was considered but not performed or refused? (CT, X-rays, U/S, labs)? Why? @ -None What meds were considered but not given or refused? Why? @ -None Did you discuss the management of the patient with other professionals (professionals i.e. , PA, [employer] [employer], lab, RT, psych nurse, professor of social work, urgent care, teacher, customer service officer, case packer)? Give summary @ -No Was smoking cessation discussed for >3mins.? @ -No Was critical care preformed (if so, how long)? @ -No Were there social determinants of health that impacted care today? How? (Homel essness, low income, unemployed, alcoholism, drug addiction, transportation, low edu. Level, literacy, decrease access to med. care, senior care, rehab)? @ -No Was there de-escalation of care discussed even if they declined (Discuss DNR or withdrawal of care, Hospice)? DNR status @ -No What co-morbidities impacted this encounter? (DM, HTN, Smoking, COPD, CAD, Cancer, CVA, ARF, Chemo, Hep., AIDS, mental health diagnosis, sleep apnea, morbid obesity)? @ -None Was patient admitted / discharged? Hospital course, mention meds given and route, prescriptions, significant lab abnormalities, going to OR and other pertinent info. @ -6-year-old female presenting with an episode of abdominal pain, left-sided. This was resolved prior to arrival8. She had no further pain while in the emergency department. She had normal CBC, mild lactic acid 2.2 negative urinalysis, patient remains asymptomatic for several hours while in the emergency department. She does have significant comorbidities but I do feel given that her chief complaint is resolved she is stable for discharge with return parameters at this time. Undiagnosed new problem with uncertain prognosis? @ -No Drug Therapy requiring intensive monitoring for toxicity (Heparin, Nitro, Insulin, Cardizem)? @ -No Were any procedures done? @ -No Diagnosis/symptom? @ -Abdominal pain resolved Acute, or Chronic, or Acute on Chronic? @ -Acute Uncomplicated (without systemic symptoms) or Complicated (systemic symptoms)? @ -Default Side effects of treatment? @ -No Exacerbation, Progression, or Severe Exacerbation? @ -No Poses a threat to life or bodily function? How? (Chest pain, [place], ND, pneumonia, PE, COPD, DKA, ARF, appy, cholecystitis, CVA, Diverticulitis, Homicidal, Suicidal, threat to staff... and all critical care pts) @ -No - Lab Data Result diagrams: 03/07/24 03:33 03/07/24 03:33 Lab Results 03/07/24 03/07/24 03/07/24 Range/Units 03:33 03:33 03:33 WBC 6.2 (3.8-10.6) k/uL RBC 4.68 (3.80-5.40) m/uL Hgb 12.9 (11.4-16.0) gm/dL Hct 40.8 (34.0-46.0) % MCV 87.2 (80.0-100.0) fL MCH 27.6 (25.0-35.0) pg MCHC 31.6 (31.0-37.0) g/dL RDW 16.9 H (11.5-15.5) % Plt Count 129 L (150-450) k/uL MPV 10.3 Neutrophils % 63 % Lymphocytes % 26 % Monocytes % 7 % Eosinophils % 2 % Basophils % 1 % Neutrophils # 3.9 (1.3-7.7) k/uL Lymphocytes # 1.6 (1.0-4.8) k/uL Monocytes # 0.4 (0-1.0) k/uL Eosinophils # 0.1 (0-0.7) k/uL Basophils # 0.0 (0-0.2) k/uL Hypochromasia Moderate Anisocytosis Slight PT 13.7 H (10.0-12.5) sec INR 1.3 H (<1.2) APTT 23.1 (22.0-30.0) sec Sodium 144 (137-145) mmol/L Potassium 4.8 (3.5-5.1) mmol/L Chloride 112 H (98-107) mmol/L Carbon Dioxide 18 L (22-30) mmol/L Anion Gap 14 mmol/L BUN 34 H (7-17) mg/dL Creatinine 1.47 H (0.52-1.04) mg/dL Est GFR (CKD-EPI)AfAm 42 (>60 ml/min/1.73 sqM) Est GFR (CKD-EPI)NonAf 36 (>60 ml/min/1.73 sqM) Glucose 157 H (74-99) mg/dL Plasma Lactic Acid Gentry (0.7-2.0) mmol/L Calcium 10.3 H (8.4-10.2) mg/dL Total Bilirubin 1.4 H (0.2-1.3) mg/dL AST 22 (14-36) U/L ALT 15 (4-34) U/L Alkaline Phosphatase 89 (38-126) U/L Total Protein 6.8 (6.3-8.2) g/dL Albumin 4.2 (3.5-5.0) g/dL Amylase 34 (30-110) U/L Lipase 44 (23-300) U/L Urine Color Urine Appearance (Clear) Urine pH (5.0-8.0) Ur Specific [place] (1.001-1.035) Urine Protein (Negative) Urine Glucose (UA) (Negative) Urine Ketones (Negative) Urine Blood (Negative) Urine Nitrite (Negative) Urine Bilirubin (Negative) Urine Urobilinogen (<2.0) mg/dL Ur Leukocyte Esterase (Negative) Urine RBC (0-5) /hpf Urine WBC (0-5) /hpf Ur Squamous Epith Cells (0-4) /hpf Amorphous Sediment (None) /hpf Hyaline Casts (0-2) /lpf Urine Mucus (None) /hpf 03/07/24 03/07/24 Range/Units 03:33 05:00 WBC (3.8-10.6) k/uL RBC (3.80-5.40) m/uL Hgb (11.4-16.0) gm/dL Hct (34.0-46.0) % MCV (80.0-100.0) fL MCH (25.0-35.0) pg MCHC (31.0-37.0) g/dL RDW (11.5-15.5) % Plt Count (150-450) k/uL MPV Neutrophils % % Lymphocytes % % Monocytes % % Eosinophils % % Basophils % % Neutrophils # (1.3-7.7) k/uL Lymphocytes # (1.0-4.8) k/uL Monocytes # (0-1.0) k/uL Eosinophils # (0-0.7) k/uL Basophils # (0-0.2) k/uL Hypochromasia Anisocytosis PT (10.0-12.5) sec INR (<1.2) APTT (22.0-30.0) sec Sodium (137-145) mmol/L Potassium (3.5-5.1) mmol/L Chloride (98-107) mmol/L Carbon Dioxide (22-30) mmol/L Anion Gap mmol/L BUN (7-17) mg/dL Creatinine (0.52-1.04) mg/dL Est GFR (CKD-EPI)AfAm (>60 ml/min/1.73 sqM) Est GFR (CKD-EPI)NonAf (>60 ml/min/1.73 sqM) Glucose (74-99) mg/dL Plasma Lactic Acid Gentry 2.2 H* (0.7-2.0) mmol/L Calcium (8.4-10.2) mg/dL Total Bilirubin (0.2-1.3) mg/dL AST (14-36) U/L ALT (4-34) U/L Alkaline Phosphatase (38-126) U/L Total Protein (6.3-8.2) g/dL Albumin (3.5-5.0) g/dL Amylase (30-110) U/L Lipase (23-300) U/L Urine Color Light Yellow Urine Appearance Clear (Clear) Urine pH 5.0 (5.0-8.0) Ur Specific [place] 1.012 (1.001-1.035) Urine Protein 1+ H (Negative) Urine Glucose (UA) Negative (Negative) Urine Ketones Negative (Negative) Urine Blood Negative (Negative) Urine Nitrite Negative (Negative) Urine Bilirubin Negative (Negative) Urine Urobilinogen <2.0 (<2.0) mg/dL Ur Leukocyte Esterase Negative (Negative) Urine RBC <1 (0-5) /hpf Urine WBC 2 (0-5) /hpf Ur Squamous Epith Cells 2 (0-4) /hpf Amorphous Sediment Rare H (None) /hpf Hyaline Casts 240 H (0-2) /lpf Urine Mucus Occasional H (None) /hpf Disposition Clinical Impression: Abdominal pain Disposition: HOME SELF-CARE Condition: Good Instructions (If sedation given, give patient instructions): Abdominal Pain (ED) Is patient prescribed a controlled substance at d/c from ED?: No Referrals: Lorenza Christopher MD [Primary Care Provider] - 1-2 days Time of Disposition: 05:49
[2024-03-07 05:05] LABS: INR 1.3 (<1.2); Partial Thromboplastin Time 23.1 sec (22.0-30.0); Prothrombin Time 13.7 sec (10.0-12.5)
[2024-03-07 05:18] LABS: Amorphous Sediment,Urine Rare /hpf; Appearance,Urine Clear (Clear); Bilirubin,Urine Negative (Negative); Blood,Urine Negative (Negative); Color,Urine Light Yellow; Glucose,Urine (UA) Negative (Negative); Hyaline Casts,Urine 240 /lpf (0-2); Ketones,Urine Negative (Negative); Leukocyte Esterase,Urine Negative (Negative); Mucus,Urine Occasional /hpf; Nitrite,Urine Negative (Negative); Protein,Urine 1+ (Negative); RBC,Urine <1 /hpf (0-5); Specific Gravity,Urine 1.012 (1.001-1.035); Squamous Epithelial Cell,Urine 2 /hpf (0-4); Urobilinogen,Urine <2.0 mg/dL (<2.0); WBC,Urine 2 /hpf (0-5)
[2024-03-07] MEDS: SODIUM CHLORIDE 0.9% 500 ML 500 ML IV ONE (05:18)
[2024-03-07 05:39] VITALS: RESP 20
[2024-03-07 06:06] VITALS: BP 117/85; PULSE 111; TEMP 98
== END 2024-03-07 06:04 | disposition home or self-care (01) ==
LOC: EC 03:18
DX: R10.9 Unspecified abdominal pain (principal); I44.0 Atrioventricular block, first degree; I45.10 Unspecified right bundle-branch block; Z91.09 Other allergy status, other than to drugs and biological substances; Z87.891 Personal history of nicotine dependence
CPT/HCPCS: 36415; 80053; 81001; 82150; 83605; 83690; 85025; 85610; 85730; 93005; 99284

== ENCOUNTER 2024-04-19 20:00 | Inpatient (IN) | payer MEDICARE, OTHER ==
[2024-04-19 20:24] LABS: Anisocytosis Slight; Basophils % (A) 0 %; Eosinophils # (A) 0.1 k/uL (0-0.7); Eosinophils % (A) 2 %; HCT 39.9 % (34.0-46.0); HGB 11.9 gm/dL (11.4-16.0); Hypochromasia Moderate; Lymphocytes # (A) 1.8 k/uL (1.0-4.8); Lymphocytes % (A) 32 %; MCH 25.4 pg (25.0-35.0); Mean Platelet Volume 9.5; Monocytes # (A) 0.3 k/uL (0-1.0); Monocytes % (A) 5 %; Neutrophils # (A) 3.2 k/uL (1.3-7.7); Neutrophils % (A) 56 %; Platelet Count 160 k/uL (150-450); RBC 4.69 m/uL (3.80-5.40); WBC 5.7 k/uL (3.8-10.6)
[2024-04-19 20:32] LABS: INR 1.4 (<1.2); Partial Thromboplastin Time 24.6 sec (22.0-30.0); Prothrombin Time 14.8 sec (10.0-12.5)
[2024-04-19 20:37] LABS: ALT 20 U/L (4-34); AST 28 U/L (14-36); African American GFR (CKD) >90 (>60 ml/min/1.73 sqM); Alkaline Phosphatase 94 U/L (38-126); Anion Gap 12 mmol/L; Blood Urea Nitrogen 18 mg/dL (7-17); Calcium 9.1 mg/dL (8.4-10.2); Carbon Dioxide 21 mmol/L (22-30); Chloride 110 mmol/L (98-107); Glucose 147 mg/dL (74-99); Magnesium 1.6 mg/dL (1.6-2.3); Non-African American GFR(CKD) 79 (>60 ml/min/1.73 sqM); Potassium 3.1 mmol/L (3.5-5.1); Sodium 143 mmol/L (137-145); Total Bilirubin 1.5 mg/dL (0.2-1.3); Total Protein 6.9 g/dL (6.3-8.2)
[2024-04-19 20:46] LABS: NT-Pro-B-Type Natriuretic Pept 5720 pg/mL
--- NOTE | 2024-04-19 20:54 | XR ---
EXAMINATION TYPE: XR chest 2V DATE OF EXAM: 04/19/2024 8:47 PM COMPARISON: Chest radiographs from 02/06/2024, CTA chest 02/07/2024. TECHNIQUE: XR chest 2V Frontal and lateral views of the chest. CLINICAL INDICATION:Female, 69 years old with history of difficulty breathing; FINDINGS: Lungs/Pleura: There is no evidence of pleural effusion, focal consolidation, or pneumothorax. Pulmonary vascularity: Chronic interstitial prominence. Heart/mediastinum: Cardiomediastinal silhouette is enlarged and stable. Post-CABG changes. Atheroscl erotic calcifications are seen in the aorta. Redemonstration aneurysmal dilatation of the thoracic ao rta. Musculoskeletal: No acute osseous pathology. Midline sternotomy wires are noted and stable. IMPRESSION: 1. No radiographic evidence for an acute process. 2. Cardiomegaly with post-CABG changes. 3. Redemonstration of a known thoracic aortic aneurysm. [facility], , 04/19/2024 8:52 PM
--- NOTE | 2024-04-20 00:13 | ED ---
General Adult HPI - General Chief complaint: Shortness of Breath Stated complaint: Difficulty Breathing Time Seen by Provider: 04/19/24 20:05 Source: patient Mode of arrival: EMS Limitations: no limitations - History of Present Illness Initial comments: 69-year-old female with past medical history of A-fib, coronary artery disease status post CABG, ischemic cardiomyopathy, A-fib, thoracic aortic aneurysm unable to have surgical intervention who presents to the emergency department with shortness of breath. Patient states that she started to have shortness of breath yesterday. Reports that she typically can keep it under control with her albuterol inhaler. She did use it with only minor relief. She denies any chest pain. No lower extremity swelling. Has been taking all of her medications as directed. Denies fevers. Admits to a nonproductive cough. Patient was also found to be in rapid A-fib. Admits to a history of. No other alleviating, precipitating or modifying factors - Related Data Home Medications Medication Instructions Recorded Confirmed Apixaban [Eliquis] 5 mg PO BID 01/16/24 04/20/24 Nitroglycerin Sl Tabs [Nitrostat] 0.4 mg SUBLINGUAL Q5M PRN 01/16/24 04/20/24 Budesonide-Formot 160-4.5 Mcg 2 puff INHALATION RT-BID 02/06/24 04/20/24 [Symbicort 160-4.5 Mcg Inhaler] Atorvastatin [Lipitor] 20 mg PO DAILY 04/20/24 04/20/24 Furosemide [Lasix] 40 mg PO DAILY@1800 04/20/24 04/20/24 Metoprolol Succinate [Metoprolol 25 mg PO DAILY 04/20/24 04/20/24 Succinate ER] Previous Rx's Medication Instructions Recorded Losartan [Cozaar] 25 mg PO DAILY 14 Days #14 tab 02/10/24 Furosemide [Lasix] 80 mg PO DAILY 30 Days #30 tab 02/23/24 Allergies Allergy/AdvReac Type Severity Reaction Status Date / Time adhesive Allergy Rash/Hives Verified 04/20/24 10:17 Review of Systems ROS Statement: Those systems with pertinent positive or pertinent negative responses have been documented in the HPI. ROS Other: All systems not noted in ROS Statement are negative. Past Medical History Past Medical History: Atrial Fibrillation, Asthma, Chest Pain / Angina History of Any Multi-Drug Resistant Organisms: None Reported Past Surgical History: No Surgical Hx Reported Additional Past Surgical History / Comment(s): "open heart surgery" Past Anesthesia/Blood Transfusion Reactions: No Reported Reaction Past Psychological History: No Psychological Hx Reported Smoking Status: Former smoker Past Alcohol Use History: None Reported Past Drug Use History: None Reported - Past Family History Father Family Medical History: No Reported History General Exam Limitations: no limitations General appearance: alert, in no apparent distress Head exam: Present: atraumatic, normocephalic, normal inspection Eye exam: Present: normal appearance, PERRL, EOMI. Absent: scleral icterus, conjunctival injection, periorbital swelling ENT exam: Present: normal exam, mucous membranes moist Neck exam: Present: normal inspection. Absent: tenderness, meningismus, lymphadenopathy Respiratory exam: Present: decreased breath sounds. Absent: respiratory dis tress, wheezes, rales, rhonchi, stridor Cardiovascular Exam: Present: tachycardia, irregular rhythm, normal heart sounds. Absent: systolic murmur, diastolic murmur, rubs, gallop, clicks GI/Abdominal exam: Present: soft, normal bowel sounds. Absent: distended, tenderness, guarding, rebound, rigid Extremities exam: Present: normal inspection, full ROM, normal capillary refill. Absent: tenderness, pedal edema, joint swelling, calf tenderness Back exam: Present: normal inspection Neurological exam: Present: alert, oriented X3, CN II-XII intact Psychiatric exam: Present: normal affect, normal mood Skin exam: Present: warm, dry, intact, normal color. Absent: rash Course Vital Signs 04/19/24 04/19/24 04/19/24 20:02 20:15 21:30 Temperature 97.3 F L Pulse Rate 144 H 121 H Respiratory 18 26 H 18 Rate Blood Pressure 117/85 105/91 O2 Sat by Pulse 96 97 Oximetry 04/19/24 04/20/24 04/20/24 22:00 00:00 01:00 Temperature Pulse Rate 92 91 138 H Respiratory 22 22 17 Rate Blood Pressure 111/75 111/75 90/58 O2 Sat by Pulse 95 95 99 Oximetry 04/20/24 04/20/24 04/20/24 01:25 01:31 02:00 Temperature Pulse Rate 88 101 H 103 H Respiratory 18 18 14 Rate Blood Pressure 99/73 O2 Sat by Pulse 99 Oximetry 04/20/24 04/20/24 04/20/24 04:34 04:45 06:00 Temperature Pulse Rate 119 H 95 120 H Respiratory 20 18 12 Rate Blood Pressure 92/66 O2 Sat by Pulse 93 L Oximetry 04/20/24 04/20/24 04/20/24 07:43 07:44 07:53 Temperature 98 F Pulse Rate 94 142 H 95 Respiratory 18 Rate Blood Pressure 107/77 O2 Sat by Pulse 92 L Oximetry 04/20/24 04/20/24 04/20/24 08:07 09:00 09:19 Temperature Pulse Rate 141 H 134 H 105 H Respiratory 22 22 18 Rate Blood Pressure 104/73 102/66 118/75 O2 Sat by Pulse 94 L 97 95 Oximetry 04/20/24 04/20/24 04/20/24 11:00 11:16 11:26 Temperature 98.2 F Pulse Rate 77 94 96 Respiratory 18 Rate Blood Pressure 118/79 O2 Sat by Pulse 94 L Oximetry 04/20/24 04/20/24 04/20/24 15:15 19:42 19:49 Temperature 97.9 F 98.6 F Pulse Rate 126 H 113 H 109 H Respiratory 24 24 18 Rate Blood Pressure 114/72 106/83 O2 Sat by Pulse 95 95 Oximetry 04/20/24 04/20/24 04/20/24 19:56 21:01 21:55 Temperature Pulse Rate 124 H 125 H 94 Respiratory 18 20 18 Rate Blood Pressure 84/65 85/65 O2 Sat by Pulse 95 95 Oximetry 04/20/24 22:23 Temperature Pulse Rate 112 H Respiratory 18 Rate Blood Pressure 99/68 O2 Sat by Pulse 98 Oximetry Medical Decision Making - Medical Decision Making Was pt. sent in by a medical professional or institution (, PA, SET DECORATOR, urgent care, hospital, or residential...) When possible be specific @ -No Did you speak to anyone other than the patient for history (EMS, parent, family, police, friend...)? What history was obtained from this source @ -Spoke with EMS for history Did you review nursing and triage notes (agree or disagree)? Why? @ -I reviewed and agree with nursing and triage notes Were old charts reviewed (outside hosp., previous admission, EMS record, old EKG, old radiological studies, urgent care reports/EKG's, residential records)? Report findings @ -I reviewed the discharge summary from February 23, 2024 Differential Diagnosis (chest pain, altered mental status, abdominal pain women, abdominal pain men, vaginal bleeding, weakness, fever, dyspnea, syncope, headache, dizziness, GI bleed, back pain, seizure, CVA, palpatations, mental health, musculoskeletal)? @ -Differential Dyspnea: Coronary syndrome, arrhythmia, tamponade, asthma, COPD, pulmonary embolism, p neumonia, pneumothorax, pulmonary effusion, anaphylaxis, diabetic ketoacidosis, flailed chest, pulmonary contusion, diaphragmatic rupture, anemia, neuromuscular, this is not meant to be an all-inclusive list. EKG interpreted by me (3pts min.). @ -Yes and demonstrates atrial flutter with a rate of 142. QRS 164. QTc of 430. No acute ST segment elevations or depressions X-rays interpreted by me (1pt min.). @ -Yes and demonstrates cardiomegaly with CABG changes CT interpreted by me (1pt min.). @ -None done U/S interpreted by me (1pt. min.). @ -None done What testing was considered but not performed or refused? (CT, X-rays, U/S, labs)? Why? @ -None What meds were considered but not given or refused? Why? @ -None Did you discuss the management of the patient with other professionals ( professionals i.e. , PA, SET DECORATOR, lab, RT, psych nurse, social group worker, headhunter, teacher, compliance officer, renal case manager)? Give summary @ -Spoke with Marion from [facility] for the admission Was smoking cessation discussed for >3mins.? @ -No Was critical care preformed (if so, how long)? @ -Yes, 35 minutes for management of Cardizem drip Were there social determinants of health that impacted care today? How? (Homelessness, low income, unemployed, alcoholism, drug addiction, transportation, low edu. Level, literacy, decrease access to med. care, fpc, rehab)? @ -No Was there de-escalation of care discussed even if they declined (Discuss DNR or withdrawal of care, Hospice)? DNR status @ -No What co-morbidities impacted this encounter? (DM, HTN, Smoking, COPD, CAD, Cancer, CVA, ARF, Chemo, Hep., AIDS, mental health diagnosis, sleep apnea, morbid obesity)? @ -COPD, coronary artery disease status post CABG, thoracic aortic aneurysm, cardiomyopathy Was patient admitted / discharged? Hospital course, mention meds given and route, prescriptions, significant lab abnormalities, going to OR and other pertinent info. @ -Upon arrival patient seen and evaluated in trauma 2. Thorough history and physical exam was performed. Patient placed on continuous pulse ox and cardiac monitoring. Twelve-lead EKG is performed. Laboratory studies are conducted. Patient is in rapid A-fib therefore she is started on a Cardizem drip for rate control. I did order Solu-Medrol and breathing treatments for the patient's increased work of breathing. Results of laboratory studies are discussed with patient. Chest x-ray demonstrates no acute process. I did recommend admission for pulmonology and cardiology consultation. Patient was agreeable to this. I spoke with Marion from [facility] for the admission Undiagnosed new problem with uncertain prognosis? @ -No Drug Therapy requiring intensive monitoring for toxicity (Heparin, Nitro, Insulin, Cardizem)? @ -Cardizem Were any procedures done? @ -No Diagnosis/symptom? @ -Acute respiratory insufficiency, A-fib with RVR, suspected CHF exacerbation, suspected COPD exacerbation Acute, or Chronic, or Acute on Chronic? @ -Acute on chronic Uncomplicated (without systemic symptoms) or Complicated (systemic symptoms)? @ -Complicated Side effects of treatment? @ -No Exacerbation, Progression, or Severe Exacerbation? @ -Yes Poses a threat to life or bodily function? How? (Chest pain, USA, IA, pneumonia, PE, COPD, DKA, ARF, appy, cholecystitis, CVA, Diverticulitis, Homicidal, Suicidal, threat to staff... and all critical care pts) @ -Yes is patient has significantly elevated heart rate - Lab Data Result diagrams: 04/23/24 02:56 04/24/24 04:06 Lab Results 04/19/24 04/19/24 04/19/24 Range/Units 20:04 20:04 20:04 WBC (3.8-10.6) k/uL RBC (3.80-5.40) m/uL Hgb (11.4-16.0) gm/dL Hct (34.0-46.0) % MCV (80.0-100.0) fL MCH (25.0-35.0) pg MCHC (31.0-37.0) g/dL RDW (11.5-15.5) % Plt Count (150-450) k/uL MPV Neutrophils % % Lymphocytes % % Monocytes % % Eosinophils % % Basophils % % Neutrophils # (1.3-7.7) k/uL Lymphocytes # (1.0-4.8) k/uL Monocytes # (0-1.0) k/uL Eosinophils # (0-0.7) k/uL Basophils # (0-0.2) k/uL Hypochromasia Anisocytosis PT 14.8 H (10.0-12.5) sec INR 1.4 H (<1.2) APTT 24.6 (22.0-30.0) sec Sodium 143 (137-145) mmol/L Potassium 3.1 L (3.5-5.1) mmol/L Chloride 110 H (98-107) mmol/L Carbon Dioxide 21 L (22-30) mmol/L Anion Gap 12 mmol/L BUN 18 H (7-17) mg/dL Creatinine 0.77 (0.52-1.04) mg/dL Est GFR (CKD-EPI)AfAm >90 (>60 ml/min/1.73 sqM) Est GFR (CKD-EPI)NonAf 79 (>60 ml/min/1.73 sqM) Glucose 147 H (74-99) mg/dL Plasma Lactic Acid Gentry 1.7 (0.7-2.0) mmol/L Calcium 9.1 (8.4-10.2) mg/dL Magnesium 1.6 (1.6-2.3) mg/dL Total Bilirubin 1.5 H (0.2-1.3) mg/dL AST 28 (14-36) U/L ALT 20 (4-34) U/L Alkaline Phosphatase 94 (38-126) U/L Troponin I (0.000-0.034) ng/mL NT-Pro-B Natriuret Pep 5720 pg/mL Total Protein 6.9 (6.3-8.2) g/dL Albumin 4.0 (3.5-5.0) g/dL 04/19/24 04/19/24 Range/Units 20:04 20:06 WBC 5.7 (3.8-10.6) k/uL RBC 4.69 (3.80-5.40) m/uL Hgb 11.9 (11.4-16.0) gm/dL Hct 39.9 (34.0-46.0) % MCV 85.0 (80.0-100.0) fL MCH 25.4 (25.0-35.0) pg MCHC 30.0 L (31.0-37.0) g/dL RDW 17.0 H (11.5-15.5) % Plt Count 160 (150-450) k/uL MPV 9.5 Neutrophils % 56 % Lymphocytes % 32 % Monocytes % 5 % Eosinophils % 2 % Basophils % 0 % Neutrophils # 3.2 (1.3-7.7) k/uL Lymphocytes # 1.8 (1.0-4.8) k/uL Monocytes # 0.3 (0-1.0) k/uL Eosinophils # 0.1 (0-0.7) k/uL Basophils # 0.0 (0-0.2) k/uL Hypochromasia Moderate Anisocytosis Slight PT (10.0-12.5) sec INR (<1.2) APTT (22.0-30.0) sec Sodium (137-145) mmol/L Potassium (3.5-5.1) mmol/L Chloride (98-107) mmol/L Carbon Dioxide (22-30) mmol/L Anion Gap mmol/L BUN (7-17) mg/dL Creatinine (0.52-1.04) mg/dL Est GFR (CKD-EPI)AfAm (>60 ml/min/1.73 sqM) Est GFR (CKD-EPI)NonAf (>60 ml/min/1.73 sqM) Glucose (74-99) mg/dL Plasma Lactic Acid Gentry (0.7-2.0) mmol/L Calcium (8.4-10.2) mg/dL Magnesium (1.6-2.3) mg/dL Total Bilirubin (0.2-1.3) mg/dL AST (14-36) U/L ALT (4-34) U/L Alkaline Phosphatase (38-126) U/L Troponin I 0.013 (0.000-0.034) ng/mL NT-Pro-B Natriuret Pep pg/mL Total Protein (6.3-8.2) g/dL Albumin (3.5-5.0) g/dL Disposition Clinical Impression: Atrial fibrillation with RVR, Elevated brain natriuretic peptide (BNP) level, COPD exacerbation Disposition: ADMITTED IP TO THIS HOSP Condition: Serious Is patient prescribed a controlled substance at d/c from ED?: No Time of Disposition: 00:34 Decision to Admit Reason: Admit from EC Decision Date: 04/20/24 Decision Time: 00:34
[2024-04-20] MEDS: methylPREDNISolone SOD SUCCI 125 MG/2 ML VIAL IV STA (00:48)
[2024-04-20] MEDS: FUROSEMIDE 10 MG/ML 10 ML VIAL IV STA (00:48)
[2024-04-20] MEDS ORDERED: NALOXONE 0.4 MG/ML 1 ML VIAL IV PRN (00:49)
[2024-04-20] MEDS: DILTIAZEM DRIP BOLUS FROM BAG 1 MG SOLN IV ONE (00:49)
[2024-04-20] MEDS: DILTIAZEM 125 MG in SODIUM CHLORIDE 0.9% 100 ML IV SCH (01:00)
[2024-04-20] MEDS: APIXABAN 5 MG TAB PO SCH (01:13)
[2024-04-20] MEDS: POTASSIUM CHLORIDE ER 20 MEQ TAB.ER PO STA ×3 (01:13→11:08)
[2024-04-20] MEDS: IPRATROPIUM-ALBUTEROL 3 ML NEB INHALATION STA (01:25)
--- NOTE | 2024-04-20 04:27 | P.CNPUL ---
History of Present Illness Consult date: 04/20/24 Requesting physician: Lisa Navarrete Reason for consult: COPD Chief complaint: Shortness of breath History of present illness: Patient is a 69-year-old female with past medical history significant for atrial fibrillation, hypertension, hyperlipidemia, coronary artery disease with previous CABG, ischemic cardiomyopathy with ejection fraction 15 to 20%, thoracic aortic aneurysm, former tobacco smoker, and asthma/COPD. Presents to the emergency department last night with a chief complaint of shortness of breath that worsened yesterday. Workup in the emergency department found patient to be in atrial fibrillation with rapid ventricular rate. Rate up to 140s bpm. She was started on Cardizem infusion. Chest x-ray showing cardiomegaly with interstitial prominence. NT proBNP was elevated at 5720. CBC unremarkable for leukocytosis, WBC count 5.7, hemoglobin 11.9, platelets 160. CMP: Sodium 143, potassium 3.1, chloride 110, serum bicarb 21, BUN 18, creatinine 0.77, glucose 147. Lactic 1.7. LFTs not elevated. Troponin 0.013. NT proBNP 5720. Recent available echocardiogram from February, showing severe impairment of left ventricular systolic function with an ejection fraction of 15 to 20%. Also, moderate to severe mitral regurgitation along with mild to moderate tricuspid regurgitation. Previously had LifeVest, which reportedly shocked her twice. She stopped wearing it, and sent it back approximately 1 month ago. Patient currently being evaluated in the emergency department. On 2L nasal cannula without distress. Denies home O2 use. Spo2 reading 92% on bedside monitor. Heart rhythm remains in A.fib with RVR. Heart rate 100-120 bpm. Cardizem infusing at 5mg/hr. States that she was "sick" last Wednesday. Having shortness of breath with associated cough with occasional white phlegm production. Denies any fevers or chills. Denies nausea or vomiting or diarrhea. Denies sick contacts. Lives with her daughter. Does have history of asthma/COPD. Former tobacco smoker, quit 3 years ago. She is unsure of her inhalers, but does have an as needed albuterol inhaler. Tried using her rescue inhaler without much relief. She felt that her "heart was acting up". Endorses palpitations. Denies any chest pain, orthopnea, lower extremity swelling, lightheadedness or syncopal events. Denies missing any doses of Lasix. Is chronically anticoagulated on Eliquis. Most recent vital signs: Afebrile, heart rate 91 bpm, blood pressure 111/75 mmHg, nontachypneic, SpO2 reading 94% on 2 L/min nasal cannula. Review of Systems Constitutional: Reports fatigue, Denies chills, Denies fever, Denies weight gain, Denies weight loss Ears, nose, mouth and throat: Denies headache, Denies nasal congestion, Denies nasal discharge, Denies post-nasal drip, Denies sinus pain, Denies sinus pressure, Denies sore throat Cardiovascular: Reports dyspnea on exertion, Reports palpitations, Reports shortness of breath, Denies chest pain, Denies leg edema, Denies lightheadedness, Denies orthopnea, Denies paroxysmal nocturnal dyspnea, Denies syncope Respiratory: Reports congestion, Reports cough with sputum, Denies excessive sputum, Denies wheezing Gastrointestinal: Reports loss of appetite, Denies abdominal pain, Denies diarrhea, Denies nausea, Denies vomiting Genitourinary: Denies dysuria Musculoskeletal: Denies limitation of motion Integumentary: Denies rash Neurological: Denies seizures, Denies syncope Psychiatric: Denies anxiety, Denies depression Past Medical History Past Medical History: Atrial Fibrillation, Asthma, Chest Pain / Angina History of Any Multi-Drug Resistant Organisms: None Reported Past Surgical History: No Surgical Hx Reported Additional Past Surgical History / Comment(s): "open heart surgery" Past Anesthesia/Blood Transfusion Reactions: No Reported Reaction Past Psychological History: No Psychological Hx Reported Smoking Status: Former smoker Past Alcohol Use History: None Reported Past Drug Use History: None Reported Medications and Allergies Home Medications Medication Instructions Recorded Confirmed Type Apixaban [Eliquis] 5 mg PO BID 01/16/24 04/20/24 History Nitroglycerin Sl Tabs [Nitrostat] 0.4 mg SUBLINGUAL Q5M PRN 01/16/24 04/20/24 History Budesonide-Formot 160-4.5 Mcg 2 puff INHALATION RT-BID 02/06/24 04/20/24 History [Symbicort 160-4.5 Mcg Inhaler] Losartan [Cozaar] 25 mg PO DAILY 14 Days #14 tab 02/10/24 04/20/24 Rx Furosemide [Lasix] 80 mg PO DAILY 30 Days #30 tab 02/23/24 04/20/24 Rx Atorvastatin [Lipitor] 20 mg PO DAILY 04/20/24 04/20/24 History Furosemide [Lasix] 40 mg PO DAILY@1800 04/20/24 04/20/24 History Metoprolol Succinate [Metoprolol 25 mg PO DAILY 04/20/24 04/20/24 History Succinate ER] Allergies Allergy/AdvReac Type Severity Reaction Status Date / Time adhesive Allergy Rash/Hives Verified 04/20/24 10:17 Physical Exam Vitals: Vital Signs Temp Pulse Resp BP Pulse Ox 04/20/24 01:31 101 H 18 04/20/24 01:25 88 18 04/20/24 00:00 91 22 111/75 95 04/19/24 22:00 92 22 111/75 95 04/19/24 21:30 121 H 18 105/91 97 04/19/24 20:02 97.3 F L 144 H 18 117/85 96 Intake and Output 04/19/24 04/19/24 04/20/24 14:59 22:59 06:59 Other: Weight 70.307 kg GENERAL EXAM: Alert, 69-year-old -[place] female, on 2 L/min nasal cannula. Comfortable in no apparent distress. Continues on Cardizem infusion at 5 mg/h. Heart rate ranging from 100 to 120 bpm on bedside monitor HEAD: Normocephalic and atraumatic EYES: Normal reaction of pupils, equal size. NOSE: Clear with pink turbinates. THROAT: No erythema or exudates. NECK: No masses, no JVD. CHEST: No chest wall deformity. LUNGS: Equal air entry with no crackles, wheeze, rhonchi or dullness. On 2 L/min nasal cannula. SpO2 reading 92%. No conversational dyspnea or accessory muscle use.. CVS: S1 and S2 normal with no audible murmur, irregular rhythm. No extra heart sounds ABDOMEN: No hepatosplenomegaly, active bowel sounds, no guarding or rigidity. SPINE: No scoliosis or deformity SKIN: No rashes CENTRAL NERVOUS SYSTEM: No focal deficits, tone is normal in all 4 extremities. EXTREMITIES: There is no peripheral edema, clubbing, or cyanosis. Peripheral pulses are intact. Results - Laboratory Findings CBC and BMP: 04/19/24 20:06 04/19/24 20:04 PT/INR, D-dimer PT 14.8 sec (10.0-12.5) H 04/19/24 20:04 INR 1.4 (<1.2) H 04/19/24 20:04 Abnormal lab findings: Abnormal Labs 04/19/24 04/19/24 04/19/24 20:04 20:04 20:06 MCHC 30.0 L RDW 17.0 H PT 14.8 H INR 1.4 H Potassium 3.1 L Chloride 110 H Carbon Dioxide 21 L BUN 18 H Glucose 147 H Total Bilirubin 1.5 H - Diagnostic Findings Chest x-ray: image reviewed Assessment and Plan Assessment: Atrial fibrillation with rapid ventricular response, started on Cardizem infusion at 5 mg/h in the ED Chronic systolic congestive heart failure Possible acute asthma/COPD exacerbation Acute hypoxemic respiratory failure, secondary to a combination of above, chest x-ray showing cardiomegaly with interstitial prominence. NT proBNP elevated at 5720. Hypertension History of hyperlipidemia History of coronary artery disease with previous CABG History of ischemic cardiomyopathy, most recent available echocardiogram from February, showing severe impairment of left ventricular systolic function with an ejection fraction of 15 to 20%. Also, moderate to severe mitral regurgitation along with mild to moderate tricuspid regurgitation. Previously had LifeVest, she was shocked twice while at home. Stopped using it, and sent back. History of descending thoracic aortic aneurysm, reportedly not a surgical candidate Former tobacco smoker Plan: Patient's medications, labs, chest x-ray reviewed Continue supplemental oxygen to maintain oxygen saturation of 92% or greater Start patient on combination of bronchodilators, Symbicort inhaler, and IV Solu- Medrol Currently on Cardizem at 5 mg/h Resume cardiac meds once verified; including metoprolol 150 mg p.o. daily, amiodarone 100 mg p.o. twice daily, Farxiga 10 mg p.o. daily, Aldactone 25 mg p.o. daily, and Lasix Eliquis continued for anticoagulation Cardiology is consulted We will also continue to follow I have personally seen and examined the patient, performed the documentation and the assessment and plan as written. Number of minutes spent on the visit:20 This is a joint evaluation that was done along with the nurse practitioner. This evaluation was done and 35 minutes. The patient was hospitalized for acute shortness of breath attributed to decompensated heart failure and A-fib RVR. The patient had an elevated proBNP level and the chest x-ray was consistent with CHF. The patient accordingly was not started on Cardizem drip for rate control regarding atrial fibrillation. The patient is on anticoagulation with Eliquis. The patient was also started on diuretics and the patient is currently on 40 mg of IV Lasix every 12 hours and Aldactone. She is already doing better. Less shortness of breath. Producing good urine output. She is currently on 3 L of oxygen by nasal cannula. No fever. Heart rate is under better control. Echocardiogram is to follow. Cardiology consultation is to follow. Based on earlier records, the patient has ischemic cardiomyopathy with an EF of around 15 to 20% along with thoracic aortic aneurysm and coronary artery disease with previous bypass surgery. Other comorbidities include hypertension and hyperlipidemia. Time with Patient: Greater than 30
[2024-04-20] MEDS: IPRATROPIUM-ALBUTEROL 3 ML NEB INHALATION SCH (04:34)
[2024-04-20] MEDS: SYMBICORT 160-4.5 MCG INHALER INHALATION SCH (07:42)
[2024-04-20] MEDS: SPIRONOLACTONE 25 MG TAB PO SCH (08:19)
[2024-04-20] MEDS: ATORVASTATIN 40 MG TAB PO SCH (08:19)
[2024-04-20] MEDS: FUROSEMIDE 80 MG TAB PO SCH (08:19)
[2024-04-20] MEDS: DAPAGLIFLOZIN PROPANEDIOL 10 MG TABLET PO SCH (08:19)
[2024-04-20] MEDS: methylPREDNISolone SOD SUCCI 40 MG/ML 1 ML VIAL IV SCH (08:20)
[2024-04-20] MEDS: AMIODARONE 200 MG TAB PO SCH (08:20)
[2024-04-20] MEDS: METOPROLOL SUCCINATE (ER) 50 MG TAB.ER.24H PO SCH (08:20)
--- NOTE | 2024-04-20 10:17 | P.HPIM ---
History of Present Illness 61-year-old female came in with complaints of shortness of breath and hypoxemia believe any oxygen at home presently available. Patient has history of congestive heart failure with EF of around 15 to 20% and patient is also in atrial fibrillation patient is supposed to wear LifeVest has not been wearing it because it shocked her twice in the past. Patient does have a history of COPD as well quit smoking 2 years ago. Although patient has really no significant wheezing patient with elevated BNP of thousand does not have any significant pedal edema chest x-ray is consistent with pulmonary edema. There is no pneumonic infiltrate patient does complain of cough without any significant sputum production. Patient is on anticoagulation with Eliquis REVIEW OF SYSTEMS: All other systems are negative except those mentioned in the HPI PHYSICAL EXAMINATION: GENERAL: The patient is alert and oriented x3, is in mild respiratory distress well developed, well nourished. HEENT: Pupils are round and equally reacting to light. EOMI. No scleral icterus. No conjunctival pallor. Normocephalic, atraumatic. No pharyngeal erythema. No thyromegaly. CARDIOVASCULAR: S1 and S2 present. No murmurs, rubs, or gallops. PULMONARY: Chest is clear to auscultation, no wheezing or crackles. ABDOMEN: Soft, nontender, nondistended, normoactive bowel sounds. No palpable organomegaly. MUSCULOSKELETAL: No joint swelling or deformity. EXTREMITIES: No cyanosis, clubbing, or pedal edema. NEUROLOGICAL: Gross neurological examination did not reveal any focal deficits. SKIN: No rashes. Assessment and plan -Acute hypoxic respiratory failure: Secondary to possibly congestive heart failure pulm edema patient was given a dose of IV Lasix and was resumed on her home dose of Lasix. Cardiology evaluated the patient -Atrial fibrillation with rapid unclear rate patient is on IV Cardizem which is being weaned off at this time patient is on amiodarone and metoprolol 150 daily which will be resumed further management as per cardiology Eliquis is resumed -Acute on chronic hypercapnic respiratory failure secondary to mild COPD exacerbation patient will not need high-dose systemic steroids patient has fairly good air entry steroids will be switched to oral. No evidence of pneumonia at this time. Patient is on prasugrel as well along with Aldactone -Hypertension -Hyperlipidemia -Coronary artery disease with CABG in the past and ischemic cardiomyopathy secondary to coronary disease Congestive heart failure chronic systolic function with acute exacerbation patient has ischemic cardiomyopathy as mentioned above Hypokalemia potassium was replaced. DVT prophylaxis: Patient is on Eliquis Past Medical History Past Medical History: Atrial Fibrillation, Asthma, Chest Pain / Angina History of Any Multi-Drug Resistant Organisms: None Reported Past Surgical History: No Surgical Hx Reported Additional Past Surgical History / Comment(s): "open heart surgery" Past Anesthesia/Blood Transfusion Reactions: No Reported Reaction Past Psychological History: No Psychological Hx Reported Smoking Status: Former smoker Past Alcohol Use History: None Reported Past Drug Use History: None Reported Medications and Allergies Home Medications Medication Instructions Recorded Confirmed Type Apixaban [Eliquis] 5 mg PO BID 01/16/24 02/21/24 History Nitroglycerin Sl Tabs [Nitrostat] 0.4 mg SUBLINGUAL Q5M PRN 01/16/24 02/21/24 History Budesonide-Formot 160-4.5 Mcg 2 puff INHALATION RT-BID 02/06/24 02/21/24 History [Symbicort 160-4.5 Mcg Inhaler] Amiodarone [Cordarone] 200 mg PO BID 14 Days #28 tab 02/10/24 02/21/24 Rx Atorvastatin [Lipitor] 40 mg PO DAILY 14 Days #14 tab 02/10/24 02/21/24 Rx Dapagliflozin Propanediol [Farxiga] 10 mg PO DAILY 14 Days #14 tab 02/10/24 02/21/24 Rx Losartan [Cozaar] 25 mg PO DAILY 14 Days #14 tab 02/10/24 02/21/24 Rx Spironolactone [Aldactone] 25 mg PO DAILY 14 Days #14 tab 02/10/24 02/21/24 Rx Metoprolol Succinate (ER) [Toprol 150 mg PO DAILY 02/21/24 02/21/24 History XL] Furosemide [Lasix] 40 mg PO 1600 #30 tab 02/23/24 Rx Furosemide [Lasix] 80 mg PO DAILY 30 Days #30 tab 02/23/24 Rx Allergies Allergy/AdvReac Type Severity Reaction Status Date / Time adhesive Allergy Rash/Hives Verified 04/19/24 20:06 Physical Exam Vitals: Vital Signs Temp Pulse Resp BP Pulse Ox 04/20/24 09:19 105 H 18 118/75 95 04/20/24 09:00 134 H 22 102/66 97 04/20/24 08:07 141 H 22 104/73 94 L 04/20/24 07:53 95 04/20/24 07:44 98 F 142 H 18 107/77 92 L 04/20/24 07:43 94 04/20/24 06:00 120 H 12 92/66 93 L 04/20/24 04:45 95 18 04/20/24 04:34 119 H 20 04/20/24 02:00 103 H 14 99/73 99 04/20/24 01:31 101 H 18 04/20/24 01:25 88 18 04/20/24 01:00 138 H 17 90/58 99 04/20/24 00:00 91 22 111/75 95 04/19/24 22:00 92 22 111/75 95 04/19/24 21:30 121 H 18 105/91 97 04/19/24 20:15 26 H 04/19/24 20:02 97.3 F L 144 H 18 117/85 96 Intake and Output 04/19/24 04/20/24 04/20/24 22:59 06:59 14:59 Other: Weight 70.307 kg Results CBC & Chem 7: 04/19/24 20:06 04/19/24 20:04 Labs: Abnormal Lab Results - Last 24 Hours (Table) 04/19/24 04/19/24 04/19/24 Range/Units 20:04 20:04 20:06 MCHC 30.0 L (31.0-37.0) g/dL RDW 17.0 H (11.5-15.5) % PT 14.8 H (10.0-12.5) sec INR 1.4 H (<1.2) Potassium 3.1 L (3.5-5.1) mmol/L Chloride 110 H (98-107) mmol/L Carbon Dioxide 21 L (22-30) mmol/L BUN 18 H (7-17) mg/dL Glucose 147 H (74-99) mg/dL Total Bilirubin 1.5 H (0.2-1.3) mg/dL
[2024-04-20 12:46] LABS: Influenza A Not Detected (Not Detectd); Influenza B Not Detected (Not Detectd); RSV Not Detected (Not Detectd)
--- NOTE | 2024-04-20 14:06 | P.CRDCN ---
History of Present Illness Consult date: 04/20/24 Reason for Consult (text): Atrial fibrillation with RVR History of present illness: This is a 69-year-old female patient of Dr. Arnol Grover with past medical history of coronary artery disease status post bypass surgery, ischemic cardiomyopathy, diabetes, hypertension, dyslipidemia, COPD, remote history of tobacco use. She has a history of large thoracic aortic aneurysm measuring 7.5 x 5.9 cm with intramural thrombus. She was evaluated at [facility] and apparently was not a candidate for surgery or endovascular treatment. We have been asked to evaluate the patient for A-fib with RVR. Patient states that she was developed heartburn on Wednesday and also yesterday she developed significant shortness of breath. She states she had a very bad day yesterday. Patient states she felt like her whole body was closing in on her. Patient was found to be in atrial fibrillation with RVR. Telemetry appears to be atrial flutter with 2-1 rate. Heart rate is jumping between 90 and 140. She was started on Cardizem drip. Blood pressure 102/66, heart rate 134, pulse ox 97% on 2 L nasal cannula. Patient is seen today in the emergency center waiting for bed on the cardiac stepdown unit. -EKG: Atrial flutter with RVR 142 bpm -Chest x-ray: Chest x-ray reveals no acute process. Cardiomegaly with post CABG changes. -Laboratory studies: WBC 5.7, hemoglobin 1.9, INR 1.4, BUN 18 creatinine 0.77, potassium 3.1. Troponin negative x 3. proBNP 5720. Cepheid viral panel not detected. -Home cardiac medications: Eliquis 5 mg twice daily, atorvastatin 20 mg daily, Lasix 80 mg in the morning 40 mg at 6 PM, losartan 25 mg daily, metoprolol succinate 25 mg daily -Echocardiogram performed 02/21/2024 reveals EF of 15 to 20%, moderate to severe mitral regurgitation, mild to moderate tricuspid regurgitation. Review Of Systems: At the time of my exam: CONSTITUTIONAL: Denies fever or chills. HEENT: Denies blurred vision, vision changes, or eye pain. Denies hemoptysis CARDIOVASCULAR: Denies chest pain. Denies orthopnea. Denies PND. Denies palpitations RESPIRATORY: Reports shortness of breath. GASTROINTESTINAL: Denies abdominal pain. Denies nausea or vomiting. HEMATOLOGIC: Denies bleeding disorders. GENITOURINARY: Denies any blood in urine. SKIN: Denies puritis. Denies rash. Physical examination: Gen: This is a 69-year-old black female in no acute distress. VS: reviewed HEENT: Head is atraumatic, normocephalic. Pupils equal, round. Sclerae is anicteric. NECK: Supple. No JVD. LUNGS: Clear to auscultation. No wheezes or rhonchi. No intercostal retractions. HEART: Regular rate and rhythm. Systolic murmur. ABDOMEN: Soft No tenderness. EXTREMITIES: No pedal edema. No calf tenderness. NEUROLOGICAL: Patient is awake, alert and oriented x3. Assessment: Permanent atrial fibrillation with RVR Ischemic cardiomyopathy with LifeVest which patient was noncompliant History of coronary artery disease status post CABG Thoracic aortic aneurysm patient not a candidate for surgery or endovascular procedure determined by [facility] Hyperlipidemia Moderate to severe mitral regurgitation and mild to moderate tricuspid regurgitation Plan: Resume patient's home cardiac medications Continue Cardizem drip until heart rate is controlled and then wean off Further recommendations to follow based upon clinical course Thank you kindly for this consultation. Nurse practitioner note has been reviewed, I agree with documented findings and plan of care. Patient was seen and examined. Past Medical History Past Medical History: Atrial Fibrillation, Asthma, Chest Pain / Angina History of Any Multi-Drug Resistant Organisms: None Reported Past Surgical History: No Surgical Hx Reported Additional Past Surgical History / Comment(s): "open heart surgery" Past Anesthesia/Blood Transfusion Reactions: No Reported Reaction Past Psychological History: No Psychological Hx Reported Smoking Status: Former smoker Past Alcohol Use History: None Reported Past Drug Use History: None Reported Medications and Allergies Home Medications Medication Instructions Recorded Confirmed Type Apixaban [Eliquis] 5 mg PO BID 01/16/24 04/20/24 History Nitroglycerin Sl Tabs [Nitrostat] 0.4 mg SUBLINGUAL Q5M PRN 01/16/24 04/20/24 History Budesonide-Formot 160-4.5 Mcg 2 puff INHALATION RT-BID 02/06/24 04/20/24 History [Symbicort 160-4.5 Mcg Inhaler] Losartan [Cozaar] 25 mg PO DAILY 14 Days #14 tab 02/10/24 04/20/24 Rx Furosemide [Lasix] 80 mg PO DAILY 30 Days #30 tab 02/23/24 04/20/24 Rx Atorvastatin [Lipitor] 20 mg PO DAILY 04/20/24 04/20/24 History Furosemide [Lasix] 40 mg PO DAILY@1800 04/20/24 04/20/24 History Metoprolol Succinate [Metoprolol 25 mg PO DAILY 04/20/24 04/20/24 History Succinate ER] Allergies Allergy/AdvReac Type Severity Reaction Status Date / Time adhesive Allergy Rash/Hives Verified 04/20/24 10:17 Physical Exam Vitals: Vital Signs Temp Pulse Resp BP Pulse Ox 04/20/24 06:00 120 H 12 92/66 93 L 04/20/24 04:45 95 18 04/20/24 04:34 119 H 20 04/20/24 02:00 103 H 14 99/73 99 04/20/24 01:31 101 H 18 04/20/24 01:25 88 18 04/20/24 01:00 138 H 17 90/58 99 04/20/24 00:00 91 22 111/75 95 04/19/24 22:00 92 22 111/75 95 04/19/24 21:30 121 H 18 105/91 97 04/19/24 20:15 26 H 04/19/24 20:02 97.3 F L 144 H 18 117/85 96 Intake and Output 04/19/24 04/20/24 04/20/24 22:59 06:59 14:59 Other: Weight 70.307 kg Results 04/19/24 20:06 04/19/24 20:04 Cardiac Enzymes 04/19/24 04/19/24 04/20/24 Range/Units 20:04 20:04 03:08 AST 28 (14-36) U/L Troponin I 0.013 0.015 (0.000-0.034) ng/mL 04/20/24 Range/Units 06:23 AST (14-36) U/L Troponin I 0.017 (0.000-0.034) ng/mL Coagulation 04/19/24 Range/Units 20:04 PT 14.8 H (10.0-12.5) sec APTT 24.6 (22.0-30.0) sec CBC 04/19/24 Range/Units 20:06 WBC 5.7 (3.8-10.6) k/uL RBC 4.69 (3.80-5.40) m/uL Hgb 11.9 (11.4-16.0) gm/dL Hct 39.9 (34.0-46.0) % Plt Count 160 (150-450) k/uL Comprehensive Metabolic Panel 04/19/24 Range/Units 20:04 Sodium 143 (137-145) mmol/L Potassium 3.1 L (3.5-5.1) mmol/L Chloride 110 H (98-107) mmol/L Carbon Dioxide 21 L (22-30) mmol/L BUN 18 H (7-17) mg/dL Creatinine 0.77 (0.52-1.04) mg/dL Glucose 147 H (74-99) mg/dL Calcium 9.1 (8.4-10.2) mg/dL AST 28 (14-36) U/L ALT 20 (4-34) U/L Alkaline Phosphatase 94 (38-126) U/L Total Protein 6.9 (6.3-8.2) g/dL Albumin 4.0 (3.5-5.0) g/dL Current Medications Generic Name Dose Route Start Last Admin Trade Name Freq PRN Reason Stop Dose Admin Albuterol/Ipratropium 3 ml 04/20/24 04:00 04/20/24 04:34 Ipratropium-Albuterol 3 Ml Neb INHALATION 3 ml RT-Q4H KAREL Administration Amiodarone HCl 200 mg 04/20/24 09:00 Amiodarone 200 Mg Tab PO BID KAREL Apixaban 5 mg 04/20/24 01:00 04/20/24 01:13 Apixaban 5 Mg Tab PO 5 mg BID KAREL Administration Protocol Atorvastatin Calcium 40 mg 04/20/24 09:00 Atorvastatin 40 Mg Tab PO DAILY [facility] Budesonide/Formoterol Fumarate 2 puff 04/20/24 08:00 Symbicort 160-4.5 Mcg Inhaler INHALATION RT-BID KAREL Dapagliflozin 10 mg 04/20/24 09:00 Dapagliflozin Propanediol 10 Mg Tablet PO DAILY KAREL Furosemide 40 mg 04/20/24 16:00 Furosemide 40 Mg Tab PO 1600 KAREL Furosemide 80 mg 04/20/24 09:00 Furosemide 80 Mg Tab PO DAILY [facility] Methylprednisolone Sodium Succinate 40 mg 04/20/24 08:00 Methylprednisolone Sod Succi 40 Mg/Ml 1 Ml Vial IV Q8HR KAREL Metoprolol Succinate 150 mg 04/20/24 09:00 Metoprolol Succinate (Er) 50 Mg Tab.Er.24h PO DAILY KAREL Naloxone HCl 0.2 mg 04/20/24 00:49 Naloxone 0.4 Mg/Ml 1 Ml Vial IV Q2M PRN Opioid Reversal Spironolactone 25 mg 04/20/24 09:00 Spironolactone 25 Mg Tab PO DAILY KAREL Intake and Output 04/19/24 04/20/24 04/20/24 22:59 06:59 14:59 Other: Weight 70.307 kg 04/19/24 20:06 04/19/24 20:04
[2024-04-20] MEDS ORDERED: FUROSEMIDE 40 MG TAB PO SCH (16:00)
[2024-04-20] MEDS ORDERED: SODIUM CHLORIDE 0.9% 250 ML IV SCH (22:15)
[2024-04-20] MEDS: SODIUM CHLORIDE 0.9% 250 ML IV SCH (22:15)
[2024-04-20] MEDS: FUROSEMIDE 10 MG/ML 4 ML VIAL IV SCH (23:10)
[2024-04-20 23:55] LABS: Magnesium 1.8 mg/dL (1.6-2.3); Potassium 4.4 mmol/L (3.5-5.1)
[2024-04-21] MEDS: SODIUM CHLORIDE 0.9% 250 ML IV SCH (03:27)
[2024-04-21 05:17] LABS: Glucose,Whole Blood 200 mg/dL (70-110)
[2024-04-21 05:41] LABS: African American GFR (CKD) 64 (>60 ml/min/1.73 sqM); Anion Gap 14 mmol/L; Blood Urea Nitrogen 27 mg/dL (7-17); Calcium 9.4 mg/dL (8.4-10.2); Carbon Dioxide 17 mmol/L (22-30); Chloride 109 mmol/L (98-107); Glucose 156 mg/dL (74-99); Magnesium 1.8 mg/dL (1.6-2.3); Non-African American GFR(CKD) 56 (>60 ml/min/1.73 sqM); Potassium 4.9 mmol/L (3.5-5.1); Sodium 140 mmol/L (137-145)
[2024-04-21 05:50] LABS: Glucose,Whole Blood 158 mg/dL (70-110)
[2024-04-21] MEDS ORDERED: Magnesium Replacement Protocol 1 EACH MISC MISCELLANE PRN (06:33)
[2024-04-21] MEDS: SODIUM CHLORIDE 0.9% 500 ML 250 ML IV ONE (06:41)
[2024-04-21] MEDS: MAGNESIUM SULFATE-D5W PMX 1 GM in DEXTROSE/WATER 1 100ML.BAG IVPB ONE (06:42)
[2024-04-21 06:43] LABS: INR 1.4 (<1.2); Partial Thromboplastin Time 22.8 sec (22.0-30.0); Prothrombin Time 14.6 sec (10.0-12.5)
[2024-04-21 06:49] LABS: Anisocytosis Slight; Basophils % (A) 0 %; Eosinophils % (A) 0 %; HCT 42.6 % (34.0-46.0); HGB 12.4 gm/dL (11.4-16.0); Hypochromasia Marked; Lymphocytes # (A) 1.7 k/uL (1.0-4.8); Lymphocytes % (A) 12 %; MCH 25.4 pg (25.0-35.0); MCHC 29.1 g/dL (31.0-37.0); MCV 87.3 fL (80.0-100.0); Mean Platelet Volume 10.6; Monocytes # (A) 0.7 k/uL (0-1.0); Monocytes % (A) 5 %; Neutrophils # (A) 11.3 k/uL (1.3-7.7); Neutrophils % (A) 81 %; Platelet Count 186 k/uL (150-450); RBC 4.88 m/uL (3.80-5.40); RDW 17.1 % (11.5-15.5); WBC 13.9 k/uL (3.8-10.6)
[2024-04-21] MEDS ORDERED: METOPROLOL SUCCINATE (ER) 50 MG TAB.ER.24H PO SCH (09:00)
[2024-04-21] MEDS: METOPROLOL SUCCINATE (ER) 50 MG TAB.ER.24H PO SCH (09:09)
[2024-04-21] MEDS: METOPROLOL SUCCINATE (ER) 25 MG TAB.ER.24H PO SCH (09:19)
[2024-04-21] MEDS: FUROSEMIDE 40 MG TAB PO SCH (09:19)
[2024-04-21] MEDS: predniSONE 20 MG TAB PO SCH (09:19)
[2024-04-21] MEDS: METOPROLOL SUCCINATE (ER) 25 MG TAB.ER.24H PO STA (11:59)
--- NOTE | 2024-04-21 15:53 | P.PN ---
Subjective Progress Note Date: 04/21/24 Patient is a 69-year-old female with past medical history significant for atrial fibrillation, hypertension, hyperlipidemia, coronary artery disease with previous CABG, ischemic cardiomyopathy with ejection fraction 15 to 20%, thoracic aortic aneurysm, former tobacco smoker, and asthma/COPD. Presents to the emergency department last night with a chief complaint of shortness of breath that worsened yesterday. Workup in the emergency department found patient to be in atrial fibrillation with rapid ventricular rate. Rate up to 140s bpm. She was started on Cardizem infusion. Chest x-ray showing cardiomegaly with interstitial prominence. NT proBNP was elevated at 5720. CBC unremarkable for leukocytosis, WBC count 5.7, hemoglobin 11.9, platelets 160. CMP: Sodium 143, potassium 3.1, chloride 110, serum bicarb 21, BUN 18, creatinine 0.77, glucose 147. Lactic 1.7. LFTs not elevated. Troponin 0.013. NT proBNP 5720. Recent available echocardiogram from February, showing severe impairment of left ventricular systolic function with an ejection fraction of 15 to 20%. Also, moderate to severe mitral regurgitation along with mild to moderate tricuspid regurgitation. Previously had LifeVest, which reportedly shocked her twice. She stopped wearing it, and sent it back approximately 1 month ago. Patient currently being evaluated in the emergency department. On 2L nasal cannula with out distress. Denies home O2 use. Spo2 reading 92% on bedside monitor. Heart rhythm remains in A.fib with RVR. Heart rate 100-120 bpm. Cardizem infusing at 5mg/hr. States that she was "sick" last Wednesday. Having shortness of breath with associated cough with occasional white phlegm production. Denies any fevers or chills. Denies nausea or vomiting or diarrhea. Denies sick contacts. Lives with her daughter. Does have history of asthma/COPD. Former tobacco smoker, quit 3 years ago. She is unsure of her inhalers, but does have an as needed albuterol inhaler. Tried using her rescue inhaler without much relief. She felt that her "heart was acting up". Endorses palpitations. Denies any chest pain, orthopnea, lower extremity swelling, lightheadedness or syncopal events. Denies missing any doses of Lasix. Is chronically anticoagulated on Eliquis. Most recent vital signs: Afebrile, heart rate 91 bpm, blood pressure 111/75 mmHg, nontachypneic, SpO2 reading 94% on 2 L/min nasal cannula. On 04/21/2024, the patient is being seen in follow-up in the intensive care unit. Noted, earlier this morning, the patient encountered some hypotension. Based on that, the patient got transferred to the ICU. She was given to 50 cc of bolus of normal saline and currently she is normotensive. She is on 3 L of oxygen by nasal cannula. Denies having any chest pain. Denies having any significant shortness of breath. She is still tachycardic and she remains in atrial fibrillation. Pulse ox is in the order of 91% on 2 L of oxygen by nasal cannula. The patient is currently on anticoagulation with Eliquis 5 mg p.o. twice a day. The patient remains on amiodarone 2 mg p.o. twice a day and met oprolol 50 mg daily. She is also on Aldactone. She is on bronchodilators. She is on a prednisone burst taper. Objective - Vital Signs Vital signs: Vital Signs Temp 98.0 F 04/21/24 08:10 Pulse 124 H 04/21/24 08:50 Resp 19 04/21/24 08:50 BP 117/77 04/21/24 08:50 Pulse Ox 95 04/21/24 08:50 FiO2 Intake & Output 04/20/24 04/21/24 04/21/24 18:59 06:59 18:59 Intake Total 20 370 Output Total 0 Balance 20 370 Weight 70.307 kg 76 kg Intake: IV 20 370 0.9 20 Invasive Line 2 20 Magnesium Sulfate-D5w Pmx 100 1 gm In Dextrose/Water 1 100ml.bag @ 100 mls/hr IVPB ONCE ONE Rx#: [id number] Sodium Chloride 0.9% 250 250 ml @ 999 mls/hr IV .Q16M [facility] Rx#:[id number] Output: Urine 0 Other: Voiding Method Bedside Commode # Voids 1 0 - Exam GENERAL EXAM: Alert, 69-year-old -[place] female, on 2 L/min nasal cannula. Comfortable in no apparent distress. HEAD: Normocephalic and atraumatic EYES: Normal reaction of pupils, equal size. NOSE: Clear with pink turbinates. THROAT: No erythema or exudates. NECK: No masses, no JVD. CHEST: No chest wall deformity. LUNGS: Equal air entry with no crackles, wheeze, rhonchi or dullness. On 2 L/min nasal cannula. SpO2 reading 92%. No conversational dyspnea or accessory muscle use.. CVS: Irregular S1-S2 consistent with atrial fibrillation with no audible murmur, irregular rhythm. No extra heart sounds ABDOMEN: No hepatosplenomegaly, active bowel sounds, no guarding or rigidity. SPINE: No scoliosis or deformity SKIN: No rashes CENTRAL NERVOUS SYSTEM: No focal deficits, tone is normal in all 4 extremities. EXTREMITIES: There is no peripheral edema, clubbing, or cyanosis. Peripheral pulses are intact. - Labs CBC & Chem 7: 04/21/24 05:23 04/21/24 05:23 Labs: Abnormal Lab Results - Last 24 Hours (Table) 04/21/24 04/21/24 04/21/24 Range/Units 05:16 05:23 05:23 WBC 13.9 H (3.8-10.6) k/uL MCHC 29.1 L (31.0-37.0) g/dL RDW 17.1 H (11.5-15.5) % Neutrophils # 11.3 H (1.3-7.7) k/uL PT (10.0-12.5) sec INR (<1.2) Chloride 109 H (98-107) mmol/L Carbon Dioxide 17 L (22-30) mmol/L BUN 27 H (7-17) mg/dL Glucose 156 H (74-99) mg/dL POC Glucose (mg/dL) 200 H (70-110) mg/dL 04/21/24 04/21/24 Range/Units 05:23 05:49 WBC (3.8-10.6) k/uL MCHC (31.0-37.0) g/dL RDW (11.5-15.5) % Neutrophils # (1.3-7.7) k/uL PT 14.6 H (10.0-12.5) sec INR 1.4 H (<1.2) Chloride (98-107) mmol/L Carbon Dioxide (22-30) mmol/L BUN (7-17) mg/dL Glucose (74-99) mg/dL POC Glucose (mg/dL) 158 H (70-110) mg/dL Assessment and Plan Assessment: Atrial fibrillation with rapid ventricular response, rate is under better control and the patient is currently on amiodarone 200 mg p.o. twice a day and metoprolol 50 mg in combination with anticoagulation with Eliquis 5 mg p.o. twice a day. Chronic systolic congestive heart failure, ischemic cardiomyopathy with an EF of around 15 to 20% Hypertension, responded to fluids and the patient was given to 50 cc bolus and the patient's blood pressure has normalized COPD exacerbation, currently on prednisone burst taper and [facility] Acute hypoxemic respiratory failure, secondary to a combination of above, chest x-ray showing cardiomegaly with interstitial prominence. NT proBNP elevated at 5720. Hypertension History of hyperlipidemia History of coronary artery disease with previous CABG History of ischemic cardiomyopathy, most recent available echocardiogram from February, showing severe impairment of left ventricular systolic function with an ejection fraction of 15 to 20%. Also, moderate to severe mitral regurgitation along with mild to moderate tricuspid regurgitation. Previously had LifeVest, she was shocked twice while at home. Stopped using it, and sent back. History of descending thoracic aortic aneurysm, reportedly not a surgical candidate Former tobacco smoker Plan: Oxygen 2 L/min nasal cannula Continue amiodarone 200 mg p.o. twice a day Continue metoprolol 50 mg p.o. daily Anticoagulation with Eliquis 5 mg p.o. twice a day Aldactone 25 mg p.o. daily Hold Lasix for now [facility] Symbicort Prednisone burst taper Cardiology on the case Will continue to follow. Patient remains in the intensive care unit. Evaluation was done and 33 minutes. Time with Patient: Greater than 30
[2024-04-21] MEDS ORDERED: FUROSEMIDE 40 MG TAB PO SCH (16:00)
--- NOTE | 2024-04-21 16:14 | P.PN ---
Subjective Progress Note Date: 04/21/24 61-year-old female came in with complaints of shortness of breath and hypoxemia believe any oxygen at home presently available. Patient has history of congestive heart failure with EF of around 15 to 20% and patient is also in atrial fibrillation patient is supposed to wear LifeVest has not been wearing it because it shocked her twice in the past. Patient does have a history of COPD as well quit smoking 2 years ago. Although patient has really no significant wheezing patient with elevated BNP of thousand does not have any significant pedal edema chest x-ray is consistent with pulmonary edema. There is no pneumonic infiltrate patient does complain of cough without any significant sputum production. Patient is on anticoagulation with Eliquis 04/21/2024 Patient evaluated today in follow up in the ICU. Patient has been transition to oral Lasix 40 mg twice daily. Remains on oral Eliquis. Patient has been taken off IV Cardizem continues on oral amiodarone. Additionally on oral metoprolol. Currently on oral prednisone. heart rate is better controlled at 110 and sinus tachycardia. Blood pressure marginal 83/49. Has not been started on pressor support at this time. Review of Systems Constitutional: Denied any fatigue denied any fever. Cardio vascular: denied any chest pain, palpitations Gastrointestinal: denied any nausea, vomiting, diarrhea Pulmonary: Denied any shortness of breath cough Neurologic denied any new focal deficits All inpatient medications were reviewed and appropriate changes in these medications as dictated in the interval history and assessment and plan. PHYSICAL EXAMINATION: GENERAL: The patient is alert and oriented x3, is in mild respiratory distress well developed, well nourished. HEENT: Pupils are round and equally reacting to light. EOMI. No scleral icterus. No conjunctival pallor. Normocephalic, atraumatic. No pharyngeal erythema. No thyromegaly. CARDIOVASCULAR: S1 and S2 present. No murmurs, rubs, or gallops. PULMONARY: Chest is clear to auscultation, no wheezing or crackles. ABDOMEN: Soft, nontender, nondistended, normoactive bowel sounds. No palpable organomegaly. MUSCULOSKELETAL: No joint swelling or deformity. EXTREMITIES: No cyanosis, clubbing, or pedal edema. NEUROLOGICAL: Gross neurological examination did not reveal any focal deficits. SKIN: No rashes. Assessment and plan -Acute hypoxic respiratory failure: Secondary to possibly congestive heart failure pulm edema patient was given a dose of IV Lasix and was resumed on her home dose of Lasix. Cardiology evaluated the patient. -Atrial fibrillation with RVR; patient is on amiodarone and metoprolol 50 mg daily, anticoagulated with eliquis. -Acute on chronic hypercapnic respiratory failure secondary to mild COPD exacerbation. Currently on oral prednisone. -Hypertension -Hyperlipidemia -Coronary artery disease with CABG in the past and ischemic cardiomyopathy secondary to coronary disease -Congestive heart failure chronic systolic function with acute exacerbation patient has ischemic cardiomyopathy DVT prophylaxis: Patient is on Eliquis The impression and plan of care has been dictated by Felicitas Arango Nurse Practitioner as directed. Dr. Deidre MD I have performed a history and physical examination and medical decision making of this patient, discussed the same with the dictator, and agree with the dictators assessment and plan as written, documented as a scribe. Based on total visit time, I have performed more than 50% of this visit. Objective - Vital Signs Vital signs: Vital Signs Temp 98.0 F 04/21/24 08:10 Pulse 112 H 04/21/24 15:46 Resp 22 04/21/24 15:00 BP 83/49 04/21/24 15:00 Pulse Ox 91 L 04/21/24 14:45 FiO2 Intake & Output 04/20/24 04/21/24 04/21/24 18:59 06:59 18:59 Intake Total 20 430 Output Total 0 Balance 20 430 Weight 70.307 kg 76 kg Intake: IV 20 430 0.9 80 Invasive Line 2 20 Magnesium Sulfate-D5w Pmx 100 1 gm In Dextrose/Water 1 100ml.bag @ 100 mls/hr IVPB ONCE ONE Rx#: [id number] Sodium Chloride 0.9% 250 250 ml @ 999 mls/hr IV .Q16M KAREL Rx#:[id number] Output: Urine 0 Stool 0 Other: Voiding Method Bedside Commode Bedside Commode # Voids 1 0 # Bowel Movements 1 - Labs CBC & Chem 7: 04/21/24 05:23 04/21/24 05:23 Labs: Abnormal Lab Results - Last 24 Hours (Table) 04/21/24 04/21/24 04/21/24 Range/Units 05:16 05:23 05:23 WBC 13.9 H (3.8-10.6) k/uL MCHC 29.1 L (31.0-37.0) g/dL RDW 17.1 H (11.5-15.5) % Neutrophils # 11.3 H (1.3-7.7) k/uL PT (10.0-12.5) sec INR (<1.2) Chloride 109 H (98-107) mmol/L Carbon Dioxide 17 L (22-30) mmol/L BUN 27 H (7-17) mg/dL Glucose 156 H (74-99) mg/dL POC Glucose (mg/dL) 200 H (70-110) mg/dL 04/21/24 04/21/24 Range/Units 05:23 05:49 WBC (3.8-10.6) k/uL MCHC (31.0-37.0) g/dL RDW (11.5-15.5) % Neutrophils # (1.3-7.7) k/uL PT 14.6 H (10.0-12.5) sec INR 1.4 H (<1.2) Chloride (98-107) mmol/L Carbon Dioxide (22-30) mmol/L BUN (7-17) mg/dL Glucose (74-99) mg/dL POC Glucose (mg/dL) 158 H (70-110) mg/dL Assessment and Plan Time with Patient: Less than 30
[2024-04-21] MEDS: NOREPINEPHRINE 4 MG in SODIUM CHLORIDE 0.9% 250 ML IV SCH (20:18)
--- NOTE | 2024-04-21 22:32 | PN ---
PROGRESS NOTE SUBJECTIVE: Ruba is a 69-year-old lady with history of atrial fibrillation, hypertension, coronary artery disease, status post bypass surgery, ischemic cardiomyopathy, diabetes, dyslipidemia. She has a history of large thoracic aortic aneurysm evaluated at [facility], thought not to be a candidate for endovascular treatment, who presented to hospital with heart burn and shortness of breath and was found to be in atrial fibrillation with rapid ventricular rate, for which we got involved in her care. Yesterday, she became severely hypotensive and was transferred to ICU, where she received a fluid bolus, following which her symptoms have improved. She has a history of [id number] mitral regurgitation, history of LV dysfunction. At the time of my evaluation this morning, she is doing better. MEDICATIONS: She is on, 1. Amiodarone 200 b.i.d. 2. Eliquis 5 b.i.d. 3. Lipitor. 4. Lasix 40 b.i.d. 5. Toprol-XL 50 mg daily. 6. Aldactone. 7. She was supposed to be started on Levophed, but then never had to do it. OBJECTIVE: VITAL SIGNS: Heart rate is around 110 beats per minute, blood pressure is 107/82, respiratory rate is 18, O2 sat is 95% on 2L. CHEST: Reveals good air entry bilaterally. HEART: Reveals first and second heart sounds. Irregular rhythm. No murmur. ABDOMEN: Soft. EXTREMITIES: Did not reveal any edema. Peripheral pulses are felt. The patient was started on Toprol-XL 25 mg 3 times a day, which I stopped and I am starting her on Toprol-XL 50 mg daily. Labs show a hemoglobin of 12.4, platelet count is 186, potassium is 4.9, creatinine is 1. ASSESSMENT: 1. Persistent atrial fibrillation with poorly controlled ventricular rate. 2. Inoperative aortic aneurysm. 3. Hypotension that has since resolved. PLAN: I will start the patient on Toprol-XL 50 mg daily. MMODL / IJN: [id number] /
[2024-04-22] MEDS: ALPRAZolam 0.25 MG TAB PO PRN (00:28)
[2024-04-22 03:32] LABS: Anisocytosis Slight; HCT 39.4 % (34.0-46.0); Hypochromasia Moderate; MCH 26.2 pg (25.0-35.0); MCHC 30.5 g/dL (31.0-37.0); MCV 85.9 fL (80.0-100.0); Platelet Count 187 k/uL (150-450); RBC 4.58 m/uL (3.80-5.40); RDW 17.2 % (11.5-15.5); WBC 10.6 k/uL (3.8-10.6)
[2024-04-22 04:32] LABS: African American GFR (CKD) 59 (>60 ml/min/1.73 sqM); Anion Gap 16 mmol/L; Blood Urea Nitrogen 39 mg/dL (7-17); Calcium 9.5 mg/dL (8.4-10.2); Carbon Dioxide 20 mmol/L (22-30); Chloride 106 mmol/L (98-107); Glucose 130 mg/dL (74-99); Magnesium 2.1 mg/dL (1.6-2.3); Non-African American GFR(CKD) 51 (>60 ml/min/1.73 sqM); Potassium 4.5 mmol/L (3.5-5.1); Sodium 142 mmol/L (137-145)
--- NOTE | 2024-04-22 07:14 | XR ---
EXAMINATION TYPE: XR chest 1V portable DATE OF EXAM: 04/22/2024 4:50 AM COMPARISON: Chest radiographs from 04/19/2024 TECHNIQUE: XR chest 1V portable Portable AP radiograph of the chest. CLINICAL INDICATION:Female, 69 years old with history of SOB at rest and with exertion; FINDINGS: Lungs/Pleura: There is no evidence of pleural effusion, focal consolidation, or pneumothorax. Pulmonary vascularity: Unremarkable. Heart/mediastinum: Cardiomediastinal silhouette is enlarged and stable. Post-CABG changes. Atheroscle rotic calcifications are seen in the aorta. Redemonstration aneurysmal dilatation of the thoracic aor ta. Musculoskeletal: No acute osseous pathology. Midline sternotomy wires are noted and stable. IMPRESSION: 1. No radiographic evidence for an acute process. 2. Cardiomegaly with post-CABG changes. 3. Redemonstration of a known thoracic aortic aneurysm. [facility], , 04/22/2024 7:12 AM
[2024-04-22] MEDS: METOPROLOL SUCCINATE (ER) 50 MG TAB.ER.24H PO SCH (08:17)
[2024-04-22] MEDS: AMIODARONE 200 MG TAB PO STA (11:10)
[2024-04-22] MEDS: METOPROLOL SUCCINATE (ER) 50 MG TAB.ER.24H PO STA (11:10)
--- NOTE | 2024-04-22 12:42 | P.PN ---
Subjective Progress Note Date: 04/22/24 Patient is a 69-year-old female with past medical history significant for atrial fibrillation, hypertension, hyperlipidemia, coronary artery disease with previous CABG, ischemic cardiomyopathy with ejection fraction 15 to 20%, thoracic aortic aneurysm, former tobacco smoker, and asthma/COPD. Presents to the emergency department last night with a chief complaint of shortness of breath that worsened yesterday. Workup in the emergency department found patient to be in atrial fibrillation with rapid ventricular rate. Rate up to 140s bpm. She was started on Cardizem infusion. Chest x-ray showing cardiomegaly with interstitial prominence. NT proBNP was elevated at 5720. CBC unremarkable for leukocytosis, WBC count 5.7, hemoglobin 11.9, platelets 160. CMP: Sodium 143, potassium 3.1, chloride 110, serum bicarb 21, BUN 18, creatinine 0.77, glucose 147. Lactic 1.7. LFTs not elevated. Troponin 0.013. NT proBNP 5720. Recent available echocardiogram from February, showing severe impairment of left ventricular systolic function with an ejection fraction of 15 to 20%. Also, moderate to severe mitral regurgitation along with mild to moderate tricuspid regurgitation. Previously had LifeVest, which reportedly shocked her twice. She stopped wearing it, and sent it back approximately 1 month ago. Patient currently being evaluated in the emergency department. On 2L nasal cannula with out distress. Denies home O2 use. Spo2 reading 92% on bedside monitor. Heart rhythm remains in A.fib with RVR. Heart rate 100-120 bpm. Cardizem infusing at 5mg/hr. States that she was "sick" last Wednesday. Having shortness of breath with associated cough with occasional white phlegm production. Denies any fevers or chills. Denies nausea or vomiting or diarrhea. Denies sick contacts. Lives with her daughter. Does have history of asthma/COPD. Former tobacco smoker, quit 3 years ago. She is unsure of her inhalers, but does have an as needed albuterol inhaler. Tried using her rescue inhaler without much relief. She felt that her "heart was acting up". Endorses palpitations. Denies any chest pain, orthopnea, lower extremity swelling, lightheadedness or syncopal events. Denies missing any doses of Lasix. Is chronically anticoagulated on Eliquis. Most recent vital signs: Afebrile, heart rate 91 bpm, blood pressure 111/75 mmHg, nontachypneic, SpO2 reading 94% on 2 L/min nasal cannula. On 04/21/2024, the patient is being seen in follow-up in the intensive care unit. Noted, earlier this morning, the patient encountered some hypotension. Based on that, the patient got transferred to the ICU. She was given to 50 cc of bolus of normal saline and currently she is normotensive. She is on 3 L of oxygen by nasal cannula. Denies having any chest pain. Denies having any significant shortness of breath. She is still tachycardic and she remains in atrial fibrillation. Pulse ox is in the order of 91% on 2 L of oxygen by nasal cannula. The patient is currently on anticoagulation with Eliquis 5 mg p.o. twice a day. The patient remains on amiodarone 2 mg p.o. twice a day and met oprolol 50 mg daily. She is also on Aldactone. She is on bronchodilators. She is on a prednisone burst taper. 04/22/2024, the patient is being seen for a follow-up. The patient is awake and alert and denies any chest pain or shortness of breath. Nevertheless, the patient continues to be tachycardic. The patient may be in a flutter rhythm. A twelve-lead EKG was ordered accordingly. The patient is currently on metoprolol 100 mg p.o. daily. The patient is on centimeter of 5 mg p.o. twice a day. She is on anticoagulation with Eliquis 5 mg p.o. twice daily. Cardiology has been involved in the case. Normotensive. Producing adequate amount of urine output. The white cell count is at 10.6 with a hemoglobin of 12 and a platelet count of 187. Sodium is at 142, BUN 39 with a creatinine of 1.1. The patient is oxygenating adequately and the patient remains on 2 L of oxygen nasal cannula with a pulse ox of 95%. Objective - Vital Signs Vital signs: Vital Signs Temp 97.5 F L 04/22/24 08:00 Pulse 115 H 04/22/24 08:49 Resp 32 H 04/22/24 08:00 BP 105/79 04/22/24 08:00 Pulse Ox 94 L 04/22/24 08:00 FiO2 Intake & Output 04/21/24 04/22/2425 18:59 06:59 18:59 Intake Total 430 1720 320 Output Total 0 650 0 Balance 430 1070 320 Weight 82.9 kg Intake: IV 430 40 0.9 80 40 Magnesium Sulfate-D5w Pmx 100 1 gm In Dextrose/Water 1 100ml.bag @ 100 mls/hr IVPB ONCE ONE Rx#: [id number] Sodium Chloride 0.9% 250 250 ml @ 999 mls/hr IV .Q16M KAREL Rx#:[id number] Oral 1680 320 Output: Urine 0 650 0 Stool 0 Other: Voiding Method Bedside Commode Bedside Commode # Voids 0 1 # Bowel Movements 1 1 - Exam GENERAL EXAM: Alert, 69-year-old -[place] female, on 2 L/min nasal cannula. Comfortable in no apparent distress. HEAD: Normocephalic and atraumatic EYES: Normal reaction of pupils, equal size. NOSE: Clear with pink turbinates. THROAT: No erythema or exudates. NECK: No masses, no JVD. CHEST: No chest wall deformity. LUNGS: Equal air entry with no crackles, wheeze, rhonchi or dullness. On 2 L/min nasal cannula. SpO2 reading 92%. No conversational dyspnea or accessory muscle use.. CVS: Tachycardic with a regular S1-S2, consider sinus tachycardia versus a flutter with no audible murmur, irregular rhythm. No extra heart sounds ABDOMEN: No hepatosplenomegaly, active bowel sounds, no guarding or rigidity. SPINE: No scoliosis or deformity SKIN: No rashes CENTRAL NERVOUS SYSTEM: No focal deficits, tone is normal in all 4 extremities. EXTREMITIES: There is no peripheral edema, clubbing, or cyanosis. Peripheral pulses are intact. - Labs CBC & Chem 7: 04/22/24 03:07 04/22/24 03:07 Labs: Abnormal Lab Results - Last 24 Hours (Table) 04/22/24 04/22/24 Range/Units 03:07 03:07 MCHC 30.5 L (31.0-37.0) g/dL RDW 17.2 H (11.5-15.5) % Carbon Dioxide 20 L (22-30) mmol/L BUN 39 H (7-17) mg/dL Creatinine 1.11 H (0.52-1.04) mg/dL Glucose 130 H (74-99) mg/dL Assessment and Plan Assessment: Atrial fibrillation with rapid ventricular response at the time of admission the rhythm today is regular yet tachycardic. Rule out underlying flutter rhythm. Twelve-lead EKG to be obtained and a dose of metoprolol was increased up to 100 mg p.o. daily. Remains on amiodarone 5 mg p.o. twice a day. Chronic systolic congestive heart failure, ischemic cardiomyopathy with an EF of around 15 to 20% Hypertension, responded to fluids and the patient was given to 50 cc bolus and the patient's blood pressure has normalized COPD exacerbation, currently on prednisone burst taper and [facility] Acute hypoxemic respiratory failure, secondary to a combination of above, chest x-ray showing cardiomegaly with interstitial prominence. NT proBNP elevated at 5720. Hypertension History of hyperlipidemia History of coronary artery disease with previous CABG History of ischemic cardiomyopathy, most recent available echocardiogram from February, showing severe impairment of left ventricular systolic function with an ejection fraction of 15 to 20%. Also, moderate to severe mitral regurgitation along with mild to moderate tricuspid regurgitation. Previously had LifeVest, she was shocked twice while at home. Stopped using it, and sent back. History of descending thoracic aortic aneurysm, reportedly not a surgical candidate Former tobacco smoker Plan: Oxygen 2 L/min nasal cannula Continue amiodarone 400 mg p.o. twice a day Continue metoprolol 100 mg p.o. daily Anticoagulation with Eliquis 5 mg p.o. twice a day Obtain twelve-lead EKG. This rhythm could be atrial flutter Awaiting further advice from cardiology Aldactone 25 mg p.o. daily Hold Lasix for now [facility] Symbicort Prednisone burst taper Cardiology on the case Will continue to follow. Patient remains in the intensive care unit. Evaluation was done and 33 minutes. Time with Patient: Greater than 30
--- NOTE | 2024-04-22 16:44 | P.PN ---
Subjective Progress Note Date: 04/22/24 61-year-old female came in with complaints of shortness of breath and hypoxemia believe any oxygen at home presently available. Patient has history of congestive heart failure with EF of around 15 to 20% and patient is also in atrial fibrillation patient is supposed to wear LifeVest has not been wearing it because it shocked her twice in the past. Patient does have a history of COPD as well quit smoking 2 years ago. Although patient has really no significant wheezing patient with elevated BNP of thousand does not have any significant pedal edema chest x-ray is consistent with pulmonary edema. There is no pneumonic infiltrate patient does complain of cough without any significant sputum production. Patient is on anticoagulation with Eliquis 04/21/2024 Patient evaluated today in follow up in the ICU. Patient has been transition to oral Lasix 40 mg twice daily. Remains on oral Eliquis. Patient has been taken off IV Cardizem continues on oral amiodarone. Additionally on oral metoprolol. Currently on oral prednisone. heart rate is better controlled at 110 and sinus tachycardia. Blood pressure marginal 83/49. Has not been started on pressor support at this time. 04/22/2024 Patient is evaluated in follow-up in the ICU. She is awake alert and oriented she remains in sinus tachycardia with heart rate of 120s. She continues on oral amiodarone oral Lasix. Chest x-ray today reveals no radiographic evidence for an acute process there is cardiomegaly with post CABG changes. There is redemonstration of a known thoracic aortic aneurysm. Review of Systems Constitutional: Denied any fatigue denied any fever. Cardio vascular: denied any chest pain, palpitations Gastrointestinal: denied any nausea, vomiting, diarrhea Pulmonary: Denied any shortness of breath cough Neurologic denied any new focal deficits All inpatient medications were reviewed and appropriate changes in these medications as dictated in the interval history and assessment and plan. PHYSICAL EXAMINATION: GENERAL: The patient is alert and oriented x3, is in mild respiratory distress well developed, well nourished. HEENT: Pupils are round and equally reacting to light. EOMI. No scleral icterus. No conjunctival pallor. Normocephalic, atraumatic. No pharyngeal erythema. No thyromegaly. CARDIOVASCULAR: S1 and S2 present. No murmurs, rubs, or gallops. PULMONARY: Chest is clear to auscultation, no wheezing or crackles. ABDOMEN: Soft, nontender, nondistended, normoactive bowel sounds. No palpable o rganomegaly. MUSCULOSKELETAL: No joint swelling or deformity. EXTREMITIES: No cyanosis, clubbing, or pedal edema. NEUROLOGICAL: Gross neurological examination did not reveal any focal deficits. SKIN: No rashes. Assessment and plan -Acute hypoxic respiratory failure: Secondary to possibly congestive heart failure pulm edema patient was given a dose of IV Lasix and was resumed on her home dose of Lasix. Cardiology evaluated the patient. -Atrial fibrillation with RVR; patient is on amiodarone and metoprolol 50 mg daily, anticoagulated with eliquis. -Acute on chronic hypercapnic respiratory failure secondary to mild COPD exacerbation. Currently on oral prednisone. -Hypertension -Hyperlipidemia -Coronary artery disease with CABG in the past and ischemic cardiomyopathy secondary to coronary disease -Congestive heart failure chronic systolic function with acute exacerbation patient has ischemic cardiomyopathy DVT prophylaxis: Patient is on Eliquis The impression and plan of care has been dictated by Felicitas Arango Nurse Practitioner as directed. Dr. Deidre MD I have performed a history and physical examination and medical decision making of this patient, discussed the same with the dictator, and agree with the dictators assessment and plan as written, documented as a scribe. Based on total visit time, I have performed more than 50% of this visit. Objective - Vital Signs Vital signs: Vital Signs Temp 97.8 F 04/22/24 16:00 Pulse 118 H 04/22/24 16:28 Resp 31 H 04/22/24 16:00 BP 119/97 04/22/24 16:00 Pulse Ox 98 04/22/24 16:00 FiO2 Intake & Output 04/21/24 04/22/24 04/22/24 18:59 06:59 18:59 Intake Total 430 1720 920 Output Total 0 650 550 Balance 430 1070 370 Weight 82.9 kg Intake: IV 430 40 0.9 80 40 Magnesium Sulfate-D5w Pmx 100 1 gm In Dextrose/Water 1 100ml.bag @ 100 mls/hr IVPB ONCE ONE Rx#: [id number] Sodium Chloride 0.9% 250 250 ml @ 999 mls/hr IV .Q16M KAREL Rx#:[id number] Oral 1680 920 Output: Urine 0 650 550 Stool 0 Other: Voiding Method Bedside Commode Bedside Commode Bedside Commode # Voids 0 1 1 # Bowel Movements 1 1 - Labs CBC & Chem 7: 04/22/24 03:07 04/22/24 03:07 Labs: Abnormal Lab Results - Last 24 Hours (Table) 04/22/24 04/22/24 Range/Units 03:07 03:07 MCHC 30.5 L (31.0-37.0) g/dL RDW 17.2 H (11.5-15.5) % Carbon Dioxide 20 L (22-30) mmol/L BUN 39 H (7-17) mg/dL Creatinine 1.11 H (0.52-1.04) mg/dL Glucose 130 H (74-99) mg/dL Assessment and Plan Time with Patient: Less than 30
[2024-04-22 16:53] LABS: Glucose,Whole Blood 193 mg/dL (70-110)
--- NOTE | 2024-04-22 19:59 | PN ---
PROGRESS NOTE SUBJECTIVE: Ruba is a 69-year-old lady, who is admitted to ICU because of hypotension. She has history of coronary artery disease, status post bypass surgery; ischemic cardiomyopathy; diabetes; hypertension; dyslipidemia; and history of large thoracic aortic aneurysm that is thought not to be operable or even a candidate for endovascular treatment. She is in the ICU, seems fairly stable clinically, but remains in atrial fibrillation with poorly controlled ventricular rate. Her heart rate is in the 130s per minute. She is on metoprolol, whose dose I increased this morning and on Eliquis for anticoagulation. An EKG shows probably in atrial fibrillation with poorly controlled ventricular rate. I will increase the dose of Cordarone. PHYSICAL EXAMINATION: VITAL SIGNS: Heart rate is 130 beats per minute, blood pressure is 104/70, respiratory rate is 20. CHEST: Reveals good air entry bilaterally. HEART: Reveals first and second heart sounds. No gallop. There is a systolic murmur at the apex. ABDOMEN: Soft. EXTREMITIES: Reveal mild edema. Peripheral pulses are felt. LABORATORY DATA: Shows hemoglobin of 12, platelet count is 187. Potassium is 4.5, BUN is 39, creatinine is 1.1. ASSESSMENT: 1. Coronary artery disease, status post bypass surgery. 2. Ischemic cardiomyopathy. 3. Atrial fibrillation with poorly controlled ventricular rate. PLAN: We will increase the dose of Toprol and Cordarone and continue the Eliquis that she is on. MMODL / IJN: [id number] /
[2024-04-22] MEDS: AMIODARONE 200 MG TAB PO SCH (20:40)
[2024-04-23 03:11] LABS: Anisocytosis Slight; HCT 38.6 % (34.0-46.0); Hypochromasia Slight; MCH 26.4 pg (25.0-35.0); MCV 85.1 fL (80.0-100.0); Mean Platelet Volume 9.9; Platelet Count 189 k/uL (150-450); RBC 4.54 m/uL (3.80-5.40); RDW 17.4 % (11.5-15.5); WBC 10.4 k/uL (3.8-10.6)
[2024-04-23 03:43] LABS: African American GFR (CKD) 65 (>60 ml/min/1.73 sqM); Anion Gap 13 mmol/L; Blood Urea Nitrogen 39 mg/dL (7-17); Calcium 9.3 mg/dL (8.4-10.2); Carbon Dioxide 22 mmol/L (22-30); Chloride 106 mmol/L (98-107); Glucose 134 mg/dL (74-99); Non-African American GFR(CKD) 57 (>60 ml/min/1.73 sqM); Potassium 4.1 mmol/L (3.5-5.1); Sodium 141 mmol/L (137-145)
--- NOTE | 2024-04-23 07:42 | XR ---
EXAMINATION TYPE: XR chest 1V portable DATE OF EXAM: 04/23/2024 4:35 AM COMPARISON: Multiple radiographs, with the most recent on 04/22/2024 TECHNIQUE: XR chest 1V portable Portable AP radiograph of the chest. CLINICAL INDICATION:Female, 69 years old with history of Routine; shortness of breath. FINDINGS: Lungs/Pleura: There is no evidence of pleural effusion, focal consolidation, or pneumothorax. Pulmonary vascularity: Unremarkable. Heart/mediastinum: Cardiomediastinal silhouette is enlarged and stable. Post-CABG changes. Atheroscle rotic calcifications are seen in the aorta. Redemonstration of aneurysmal dilatation of the thoracic aorta. Musculoskeletal: No acute osseous pathology. Midline sternotomy wires are noted and stable. IMPRESSION: 1. No radiographic evidence for an acute process. 2. Cardiomegaly with post-CABG changes. 3. Redemonstration of known thoracic aortic aneurysm. [facility], , 04/23/2024 7:40 AM
[2024-04-23] MEDS: METOPROLOL SUCCINATE (ER) 100 MG TAB.ER.24H PO SCH ×2 (08:25→19:55)
--- NOTE | 2024-04-23 12:38 | P.PN ---
Subjective Progress Note Date: 04/23/24 Patient is a 69-year-old female with past medical history significant for atrial fibrillation, hypertension, hyperlipidemia, coronary artery disease with previous CABG, ischemic cardiomyopathy with ejection fraction 15 to 20%, thoracic aortic aneurysm, former tobacco smoker, and asthma/COPD. Presents to the emergency department last night with a chief complaint of shortness of breath that worsened yesterday. Workup in the emergency department found patient to be in atrial fibrillation with rapid ventricular rate. Rate up to 140s bpm. She was started on Cardizem infusion. Chest x-ray showing cardiomegaly with interstitial prominence. NT proBNP was elevated at 5720. CBC unremarkable for leukocytosis, WBC count 5.7, hemoglobin 11.9, platelets 160. CMP: Sodium 143, potassium 3.1, chloride 110, serum bicarb 21, BUN 18, creatinine 0.77, glucose 147. Lactic 1.7. LFTs not elevated. Troponin 0.013. NT proBNP 5720. Recent available echocardiogram from February, showing severe impairment of left ventricular systolic function with an ejection fraction of 15 to 20%. Also, moderate to severe mitral regurgitation along with mild to moderate tricuspid regurgitation. Previously had LifeVest, which reportedly shocked her twice. She stopped wearing it, and sent it back approximately 1 month ago. Patient currently being evaluated in the emergency department. On 2L nasal cannula with out distress. Denies home O2 use. Spo2 reading 92% on bedside monitor. Heart rhythm remains in A.fib with RVR. Heart rate 100-120 bpm. Cardizem infusing at 5mg/hr. States that she was "sick" last Wednesday. Having shortness of breath with associated cough with occasional white phlegm production. Denies any fevers or chills. Denies nausea or vomiting or diarrhea. Denies sick contacts. Lives with her daughter. Does have history of asthma/COPD. Former tobacco smoker, quit 3 years ago. She is unsure of her inhalers, but does have an as needed albuterol inhaler. Tried using her rescue inhaler without much relief. She felt that her "heart was acting up". Endorses palpitations. Denies any chest pain, orthopnea, lower extremity swelling, lightheadedness or syncopal events. Denies missing any doses of Lasix. Is chronically anticoagulated on Eliquis. Most recent vital signs: Afebrile, heart rate 91 bpm, blood pressure 111/75 mmHg, nontachypneic, SpO2 reading 94% on 2 L/min nasal cannula. On 04/21/2024, the patient is being seen in follow-up in the intensive care unit. Noted, earlier this morning, the patient encountered some hypotension. Based on that, the patient got transferred to the ICU. She was given to 50 cc of bolus of normal saline and currently she is normotensive. She is on 3 L of oxygen by nasal cannula. Denies having any chest pain. Denies having any significant shortness of breath. She is still tachycardic and she remains in atrial fibrillation. Pulse ox is in the order of 91% on 2 L of oxygen by nasal cannula. The patient is currently on anticoagulation with Eliquis 5 mg p.o. twice a day. The patient remains on amiodarone 2 mg p.o. twice a day and met oprolol 50 mg daily. She is also on Aldactone. She is on bronchodilators. She is on a prednisone burst taper. 04/22/2024, the patient is being seen for a follow-up. The patient is awake and alert and denies any chest pain or shortness of breath. Nevertheless, the patient continues to be tachycardic. The patient may be in a flutter rhythm. A twelve-lead EKG was ordered accordingly. The patient is currently on metoprolol 100 mg p.o. daily. The patient is on centimeter of 5 mg p.o. twice a day. She is on anticoagulation with Eliquis 5 mg p.o. twice daily. Cardiology has been involved in the case. Normotensive. Producing adequate amount of urine output. The white cell count is at 10.6 with a hemoglobin of 12 and a platelet count of 187. Sodium is at 142, BUN 39 with a creatinine of 1.1. The patient is oxygenating adequately and the patient remains on 2 L of oxygen nasal cannula with a pulse ox of 95%. On 04/23/2024, the patient is being seen for a follow-up. The patient is currently on 2 L of oxygen by nasal cannula. She continues to be sinus tachycardia. She is on metoprolol 100 mg p.o. daily and the dose will be modified based on her ongoing tachycardia. The patient remains on amiodarone 4 mg p.o. twice a day and the patient is also on anticoagulation with Eliquis. She is on Lasix 40 mg p.o. twice a day and Aldactone 25 mg p.o. today. Calm and comfortable. No significant shortness of breath. No ventricular arrhythmias. WBC count is at 10.4 with a hemoglobin 12 and a platelet count of 189. Sodium is at 141, BUN 39 and the creatinine is 1.02. No other significant events overnight. Objective - Vital Signs Vital signs: Vital Signs Temp 97.7 F 04/23/24 08:00 Pulse 124 H 04/23/24 08:00 Resp 23 04/23/24 08:00 BP 105/89 04/23/24 08:00 Pulse Ox 94 L 04/23/24 08:00 FiO2 Intake & Output 04/22/24 04/23/24 04/23/24 18:59 06:59 18:59 Intake Total 920 440 Output Total 550 500 Balance 370 -60 Weight 89.6 kg Intake: Oral 920 440 Output: Urine 550 500 Other: Voiding Method Bedside Commode Bedside Commode # Voids 1 1 # Bowel Movements 1 - Exam GENERAL EXAM: Alert, 69-year-old -[place] female, on 2 L/min nasal cannula. Comfortable in no apparent distress. HEAD: Normocephalic and atraumatic EYES: Normal reaction of pupils, equal size. NOSE: Clear with pink turbinates. THROAT: No erythema or exudates. NECK: No masses, no JVD. CHEST: No chest wall deformity. LUNGS: Equal air entry with no crackles, wheeze, rhonchi or dullness. On 2 L/min nasal cannula. SpO2 reading 92%. No conversational dyspnea or accessory muscle use.. CVS: Tachycardic with a regular S1-S2, consider sinus tachycardia versus a flutter with no audible murmur, irregular rhythm. No extra heart sounds ABDOMEN: No hepatosplenomegaly, active bowel sounds, no guarding or rigidity. SPINE: No scoliosis or deformity SKIN: No rashes CENTRAL NERVOUS SYSTEM: No focal deficits, tone is normal in all 4 extremities. EXTREMITIES: There is no peripheral edema, clubbing, or cyanosis. Peripheral pulses are intact. - Labs CBC & Chem 7: 04/23/24 02:56 04/23/24 02:52 Labs: Abnormal Lab Results - Last 24 Hours (Table) 04/22/24 04/23/24 04/23/24 Range/Units 16:51 02:52 02:56 RDW 17.4 H (11.5-15.5) % BUN 39 H (7-17) mg/dL Glucose 134 H (74-99) mg/dL POC Glucose (mg/dL) 193 H (70-110) mg/dL Assessment and Plan Assessment: Atrial fibrillation with rapid ventricular response at the time of admission the rhythm today is regular yet tachycardic. Rule out underlying flutter rhythm. Twelve-lead EKG to be obtained and a dose of metoprolol was increased up to 100 mg p.o. daily. Remains on amiodarone 4 mg p.o. twice a day. The patient continues to be tachycardic and her rhythm seems to be sinus at this point in time. Chronic systolic congestive heart failure, ischemic cardiomyopathy with an EF of around 15 to 20% Hypertension, responded to fluids and the patient was given to 50 cc bolus and the patient's blood pressure has normalized COPD exacerbation, currently on prednisone burst taper and [facility] Acute hypoxemic respiratory failure, secondary to a combination of above, chest x-ray showing cardiomegaly with interstitial prominence. NT proBNP elevated at 5720. Hypertension History of hyperlipidemia History of coronary artery disease with previous CABG History of ischemic cardiomyopathy, most recent available echocardiogram from February, showing severe impairment of left ventricular systolic function with an ejection fraction of 15 to 20%. Also, moderate to severe mitral regurgitation along with mild to moderate tricuspid regurgitation. Previously had LifeVest, she was shocked twice while at home. Stopped using it, and sent back. History of descending thoracic aortic aneurysm, reportedly not a surgical candidate Former tobacco smoker Plan: Oxygen 2 L/min nasal cannula Continue amiodarone 400 mg p.o. twice a day Continue metoprolol 100 mg p.o. and increase the dose to twice daily Start Lasix 40 mg p.o. twice a day Anticoagulation with Eliquis 5 mg p.o. twice a day Aldactone 25 mg p.o. daily [facility] Symbicort Prednisone burst taper Cardiology on the case Will continue to follow. Will downgrade this patient to telemetry. Time with Patient: Greater than 30
--- NOTE | 2024-04-23 14:12 | P.PN ---
Subjective Progress Note Date: 04/23/24 61-year-old female came in with complaints of shortness of breath and hypoxemia believe any oxygen at home presently available. Patient has history of congestive heart failure with EF of around 15 to 20% and patient is also in atrial fibrillation patient is supposed to wear LifeVest has not been wearing it because it shocked her twice in the past. Patient does have a history of COPD as well quit smoking 2 years ago. Although patient has really no significant wheezing patient with elevated BNP of thousand does not have any significant pedal edema chest x-ray is consistent with pulmonary edema. There is no pneumonic infiltrate patient does complain of cough without any significant sputum production. Patient is on anticoagulation with Eliquis 04/21/2024 Patient evaluated today in follow up in the ICU. Patient has been transition to oral Lasix 40 mg twice daily. Remains on oral Eliquis. Patient has been taken off IV Cardizem continues on oral amiodarone. Additionally on oral metoprolol. Currently on oral prednisone. heart rate is better controlled at 110 and sinus tachycardia. Blood pressure marginal 83/49. Has not been started on pressor support at this time. 04/22/2024 Patient is evaluated in follow-up in the ICU. She is awake alert and oriented she remains in sinus tachycardia with heart rate of 120s. She continues on oral amiodarone oral Lasix. Chest x-ray today reveals no radiographic evidence for an acute process there is cardiomegaly with post CABG changes. There is redemonstration of a known thoracic aortic aneurysm. 04/23/2024 Patient remains in the intensive care unit and reports that she has been downgraded to the medical floor. She is awake alert and oriented resting in bed she states overall she is feeling improved from admission. Her heart rate remains in the 120s. She continues on oral amiodarone and oral metoprolol with doses were increased yesterday. She is also on oral Lasix twice daily. She has no acute complaints at this time. Labs today reveal a white blood cell count of 10.4, hemoglobin 12.0, sodium 141, potassium 4.1, BUN of 39 creatinine of 1.02 and a calcium level of 9.3. Review of Systems Constitutional: Denied any fatigue denied any fever. Cardio vascular: denied any chest pain, palpitations Gastrointestinal: denied any nausea, vomiting, diarrhea Pulmonary: Denied any shortness of breath cough Neurologic denied any new focal deficits All inpatient medications were reviewed and appropriate changes in these medica tions as dictated in the interval history and assessment and plan. PHYSICAL EXAMINATION: GENERAL: The patient is alert and oriented x3, is in mild respiratory distress well developed, well nourished. HEENT: Pupils are round and equally reacting to light. EOMI. No scleral icterus. No conjunctival pallor. Normocephalic, atraumatic. No pharyngeal erythema. No thyromegaly. CARDIOVASCULAR: S1 and S2 present. No murmurs, rubs, or gallops. PULMONARY: Chest is clear to auscultation, no wheezing or crackles. ABDOMEN: Soft, nontender, nondistended, normoactive bowel sounds. No palpable organomegaly. MUSCULOSKELETAL: No joint swelling or deformity. EXTREMITIES: No cyanosis, clubbing, or pedal edema. NEUROLOGICAL: Gross neurological examination did not reveal any focal deficits. SKIN: No rashes. Assessment and plan -Acute hypoxic respiratory failure: Secondary to congestive heart failure, chronic systolic dysfunction -Atrial fibrillation with RVR; patient is on amiodarone and metoprolol 50 mg daily, anticoagulated with eliquis. -Acute on chronic hypercapnic respiratory failure secondary to mild COPD exacerbation. Currently on oral prednisone. -Hypertension -Hyperlipidemia -Coronary artery disease with CABG in the past and ischemic cardiomyopathy secondary to coronary disease -Congestive heart failure chronic systolic function with acute exacerbation patient has ischemic cardiomyopathy DVT prophylaxis: Patient is on Eliquis Plan Cardiology following closely and doses of amiodarone and metoprolol were increased yesterday. Patient continues on 400 mg of amiodarone twice daily as well as oral metoprolol XL 100 mg twice daily Continue cardiac monitoring Patient has been downgraded from the intensive care unit Renal function remained stable PT OT will be consulted The impression and plan of care has been dictated by Felicitas Arango Nurse Practitioner as directed. Dr. Deidre MD I have performed a history and physical examination and medical decision making of this patient, discussed the same with the dictator, and agree with the dictators assessment and plan as written, documented as a scribe. Based on total visit time, I have performed more than 50% of this visit. Objective - Vital Signs Vital signs: Vital Signs Temp 97.7 F 04/23/24 08:00 Pulse 124 H 04/23/24 08:00 Resp 23 04/23/24 08:00 BP 105/89 04/23/24 08:00 Pulse Ox 94 L 04/23/24 08:00 FiO2 Intake & Output 04/22/24 04/23/24 04/23/24 18:59 06:59 18:59 Intake Total 920 440 Output Total 550 500 0 Balance 370 -60 0 Weight 89.6 kg Intake: Oral 920 440 Output: Urine 550 500 0 Other: Voiding Method Bedside Commode Bedside Commode Bedside Commode # Voids 1 1 # Bowel Movements 1 - Labs CBC & Chem 7: 04/23/24 02:56 04/23/24 02:52 Labs: Abnormal Lab Results - Last 24 Hours (Table) 04/22/24 04/23/24 04/23/24 Range/Units 16:51 02:52 02:56 RDW 17.4 H (11.5-15.5) % BUN 39 H (7-17) mg/dL Glucose 134 H (74-99) mg/dL POC Glucose (mg/dL) 193 H (70-110) mg/dL Assessment and Plan Time with Patient: Less than 30
--- NOTE | 2024-04-23 16:17 | PN ---
PROGRESS NOTE SUBJECTIVE: Ruba is a 69-year-old lady with history of atrial fibrillation with rapid ventricular rate, CAD, status post CABG, ischemic cardiomyopathy, diabetes, hypertension, dyslipidemia, and inoperable thoracic aortic aneurysm. She remains in atrial fibrillation with poorly controlled ventricular rate. I increased the dose of amiodarone yesterday, and the patient is also on Toprol-XL, whose dose had been doubled today. PHYSICAL EXAMINATION: HEART: Heart rate is 120 beats, blood pressure is 104/89, respiratory rate 18, O2 saturation is 94% on 2 L. CHEST: Reveals diminished air entry at the bases. HEART: Reveals first and second heart sounds, irregular rhythm. Systolic murmur at the apex. ABDOMEN: Soft. EXTREMITIES: Reveal mild edema. Peripheral pulses are felt. LABORATORY DATA: Labs show that the hemoglobin is 12, platelet count is 189. Potassium is 4.1, creatinine is 1. ASSESSMENT: 1. Atrial fibrillation with poorly controlled ventricular rate. 2. Coronary artery disease, status post coronary artery bypass graft. 3. Ischemic cardiomyopathy. PLAN: We will increase the dose of beta blockers to better control the heart rate. MMODL / IJN: [id number] /
[2024-04-24] MEDS: IPRATROPIUM-ALBUTEROL 3 ML NEB INHALATION PRN (02:53)
[2024-04-24 05:19] LABS: Potassium 4.5 mmol/L (3.5-5.1)
[2024-04-24 05:20] LABS: African American GFR (CKD) 48 (>60 ml/min/1.73 sqM); Anion Gap 14 mmol/L; Blood Urea Nitrogen 42 mg/dL (7-17); Calcium 9.6 mg/dL (8.4-10.2); Carbon Dioxide 26 mmol/L (22-30); Chloride 102 mmol/L (98-107); Glucose 101 mg/dL (74-99); Non-African American GFR(CKD) 41 (>60 ml/min/1.73 sqM); Sodium 142 mmol/L (137-145)
[2024-04-24] MEDS: IPRATROPIUM-ALBUTEROL 3 ML NEB INHALATION SCH (08:40)
--- NOTE | 2024-04-24 09:38 | P.PN ---
Subjective Progress Note Date: 04/24/24 Patient is a 69-year-old female with multiple comorbid conditions. Patient is currently admitted with A-fib with RVR. Beta-blockers were increased yesterday and she remains on amiodarone. Patient interviewed and examined resting comfortably in bed. GENERAL: Well-appearing, well-nourished and in no acute distress. NECK: Supple without JVD or thyromegaly. LUNGS: Breath sounds diminished to auscultation bilaterally. Respiration equal and unlabored. No wheezes, rales or rhonchi. HEART: Irregular rate and rhythm without murmurs, rubs or gallops. S1 and S2 heard. EXTREMITIES: Normal range of motion, no edema. No clubbing or cyanosis. Peripheral pulses intact and strong. TELEMETRY: Atrial fibrillation with heart rates in the low 100s LABS: WBC 10.4, hemoglobin 12.0, hematocrit 38.6, platelet 189, sodium 142, potassium 4.5, BUN 42, creatinine 1.32 IMPRESSION: Persistent atrial fibrillation with RVR Chronic systolic congestive heart failure Ischemic cardiomyopathy, EF 15 to 20% Hypertension Hypoxic respiratory failure Descending thoracic aorta aneurysm, not a surgical candidate PLAN: Continue current medication regimen Consider increasing metoprolol further as long as blood pressures remained stable Further recommendations to be based upon clinical course I am dictating on behalf of Dr Conor Weller's history/physical and assessment/plan. Objective - Vital Signs Vital signs: Vital Signs Temp 97.5 F L 04/23/24 20:00 Pulse 105 H 04/24/24 09:07 Resp 22 04/24/24 08:00 BP 121/69 04/24/24 08:00 Pulse Ox 97 04/24/24 08:00 FiO2 Intake & Output 04/23/24 04/24/24 04/24/24 18:59 06:59 18:59 Output Total 0 Balance 0 Weight 79.6 kg Output: Urine 0 Other: Voiding Method Bedside Commode # Voids 1 3 # Bowel Movements 1 - Labs CBC & Chem 7: 04/23/24 02:56 04/24/24 04:06 Labs: Abnormal Lab Results - Last 24 Hours (Table) 04/24/24 Range/Units 04:06 BUN 42 H (7-17) mg/dL Creatinine 1.32 H (0.52-1.04) mg/dL Glucose 101 H (74-99) mg/dL
[2024-04-24] MEDS: ONDANSETRON 4 MG/2 ML VIAL IVP PRN (09:44)
--- NOTE | 2024-04-24 12:55 | P.PN ---
Subjective Progress Note Date: 04/24/24 Principal diagnosis: Acute hypoxic respiratory failure secondary to COPD exacerbation, chronic systolic congestive heart failure with LV dysfunction, and atrial fibrillation with RVR. Patient is a 69-year-old female with past medical history significant for atrial fibrillation, hypertension, hyperlipidemia, coronary artery disease with previous CABG, ischemic cardiomyopathy with ejection fraction 15 to 20%, thoracic aortic aneurysm, former tobacco smoker, and asthma/COPD. Presents to the emergency department last night with a chief complaint of shortness of breath that worsened yesterday. Workup in the emergency department found patient to be in atrial fibrillation with rapid ventricular rate. Rate up to 140s bpm. She was started on Cardizem infusion. Chest x-ray showing cardiomegaly with interstitial prominence. NT proBNP was elevated at 5720. CBC unremarkable for leukocytosis, WBC count 5.7, hemoglobin 11.9, platelets 160. CMP: Sodium 143, potassium 3.1, chloride 110, serum bicarb 21, BUN 18, creatinine 0.77, glucose 147. Lactic 1.7. LFTs not elevated. Troponin 0.013. NT proBNP 5720. Recent available echocardiogram from February, showing severe impairment of left ventricular systolic function with an ejection fraction of 15 to 20%. Also, m oderate to severe mitral regurgitation along with mild to moderate tricuspid regurgitation. Previously had LifeVest, which reportedly shocked her twice. She stopped wearing it, and sent it back approximately 1 month ago. Patient currently being evaluated in the emergency department. On 2L nasal cannula without distress. Denies home O2 use. Spo2 reading 92% on bedside monitor. Heart rhythm remains in A.fib with RVR. Heart rate 100-120 bpm. Cardizem infusing at 5mg/hr. States that she was "sick" last Wednesday. Having shortness of breath with associated cough with occasional white phlegm production. Denies any fevers or chills. Denies nausea or vomiting or diarrhea. Denies sick contacts. Lives with her daughter. Does have history of asthma/COPD. Former tobacco smoker, quit 3 years ago. She is unsure of her inhalers, but does have an as needed albuterol inhaler. Tried using her rescue inhaler without much relief. She felt that her "heart was acting up". Endorses palpitations. Denies any chest pain, orthopnea, lower extremity swelling, lightheadedness or syncopal events. Denies missing any doses of Lasix. Is chronically anticoagulated on Eliquis. Most recent vital signs: Afebrile, heart rate 91 bpm, blood pressure 111/75 mmHg, nontachypneic, SpO2 reading 94% on 2 L/min nasal cannula. On 04/21/2024, the patient is being seen in follow-up in the intensive care unit. Noted, earlier this morning, the patient encountered some hypotension. Based on that, the patient got transferred to the ICU. She was given to 50 cc of bolus of normal saline and currently she is normotensive. She is on 3 L of oxygen by nasal cannula. Denies having any chest pain. Denies having any s ignificant shortness of breath. She is still tachycardic and she remains in atrial fibrillation. Pulse ox is in the order of 91% on 2 L of oxygen by nasal cannula. The patient is currently on anticoagulation with Eliquis 5 mg p.o. twice a day. The patient remains on amiodarone 2 mg p.o. twice a day and metoprolol 50 mg daily. She is also on Aldactone. She is on bronchodilators. She is on a prednisone burst taper. 04/22/2024, the patient is being seen for a follow-up. The patient is awake and alert and denies any chest pain or shortness of breath. Nevertheless, the patient continues to be tachycardic. The patient may be in a flutter rhythm. A twelve-lead EKG was ordered accordingly. The patient is currently on metoprolol 100 mg p.o. daily. The patient is on centimeter of 5 mg p.o. twice a day. She is on anticoagulation with Eliquis 5 mg p.o. twice daily. Cardiology has been involved in the case. Normotensive. Producing adequate amount of urine output. The white cell count is at 10.6 with a hemoglobin of 12 and a platelet count of 187. Sodium is at 142, BUN 39 with a creatinine of 1.1. The patient is oxygenating adequately and the patient remains on 2 L of oxygen nasal cannula with a pulse ox of 95%. On 04/23/2024, the patient is being seen for a follow-up. The patient is currently on 2 L of oxygen by nasal cannula. She continues to be sinus tachycardia. She is on metoprolol 100 mg p.o. daily and the dose will be modified based on her ongoing tachycardia. The patient remains on amiodarone 4 mg p.o. twice a day and the patient is also on anticoagulation with Eliquis. She is on Lasix 40 mg p.o. twice a day and Aldactone 25 mg p.o. today. Calm and comfortable. No significant shortness of breath. No ventricular arrhythmias. WBC count is at 10.4 with a hemoglobin 12 and a platelet count of 189. Sodium is at 141, BUN 39 and the creatinine is 1.02. No other significant events overnight. Patient was evaluated today on 04/24/2024, remains in the ICU, on 3 L nasal cannula, O2 sats 97%, patient is hemodynamically stable, but she continues to have significant complaints mostly shortness of breath, intermittent cough, no chest pain, no fever, no chills, no hemoptysis. Electrolytes are normal BUN is 42 creatinine 1.32. WBC count is 10.4 hemoglobin is 12, chest x-ray yesterday showed cardiomegaly with post CABG changes, and known thoracic aortic aneurysm. No evidence of pulmonary edema. Patient remains on Eliquis, amiodarone 400 twice daily orally, farxiga, prednisone 40 mg daily Aldactone 25 mg daily she is on updrafts using albuterol at the Pratropium bromide, Lasix 40 mg twice daily, and she is on Symbicort. Today I will try to transfer the patient out of the ICU to a monitored bed and selective. Objective - Vital Signs Vital signs: Vital Signs Temp 97.5 F L 04/23/24 20:00 Pulse 105 H 04/24/24 09:07 Resp 22 04/24/24 08:00 BP 121/69 04/24/24 08:00 Pulse Ox 97 04/24/24 08:00 FiO2 Intake & Output 04/23/24 04/24/24 04/24/24 18:59 06:59 18:59 Output Total 0 Balance 0 Weight 79.6 kg Output: Urine 0 Other: Voiding Method Bedside Commode Bedside Commode # Voids 1 3 # Bowel Movements 1 - Exam GENERAL EXAM: 69-year-old -[place] female in no distress on 2 L nasal cannula HEAD: Normocephalic and atraumatic EYES: Normal reaction of pupils, equal size. NOSE: Clear with pink turbinates. THROAT: No erythema or exudates. NECK: No masses, no JVD. CHEST: No chest wall deformity. LUNGS: Minimal crackles at the bases, no rhonchi no wheezes CVS: Irregular rhythm, no S3 gallop, 2/6 systolic murmur throughout the precordium ABDOMEN: No hepatosplenomegaly, active bowel sounds, no guarding or rigidity. SKIN: No rashes CENTRAL NERVOUS SYSTEM: Alert oriented x 3 no gross focal deficit EXTREMITIES: No clubbing edema or cyanosis - Labs CBC & Chem 7: 04/23/24 02:56 04/24/24 04:06 Labs: Abnormal Lab Results - Last 24 Hours (Table) 04/24/24 Range/Units 04:06 BUN 42 H (7-17) mg/dL Creatinine 1.32 H (0.52-1.04) mg/dL Glucose 101 H (74-99) mg/dL Assessment and Plan Assessment: Impression: Acute hypoxic respiratory failure secondary to chronic systolic congestive heart failure, COPD exacerbation, and atrial fibrillation with RVR. Benign essential hypertension Dyslipidemia Coronary arteriosclerosis and previous CABG Severe ischemic cardiomyopathy and LV dysfunction with ejection fraction of 15 to 20% Moderate mitral regurgitation History of descending thoracic aortic aneurysm, not a surgical candidate Ex-smoker Recommendation: Continue oxygen and titrate accordingly Continue amiodarone 400 twice daily Continue metoprolol 100 twice daily Continue diuretics/Lasix 40 mg twice daily Continue Eliquis Continue DuoNeb and Symbicort Continue prednisone and taper accordingly Transfer patient out of the ICU to a monitored bed and selective Not ready for discharge planning Remains relatively symptomatic and will continue to follow. Time with Patient: Less than 30
--- NOTE | 2024-04-24 18:49 | NM ---
EXAMINATION TYPE: NM pul vent and perfuse DATE OF EXAM: 04/24/2024 CLINICAL INDICATION: Female, 69 years old with history of elev d dimer; COMPARISON: Plain film TECHNIQUE: Utilizing inhalation of 30.9 mCi Tc 99m DTPA aerosol and intravenous injection of 5.2 mCi of Tc 99m MAA, ventilation and perfusion images are acquired post injection in multiple projections. FINDINGS: There is clumping of the ventilation exam. Matched defect with both perfusion and ventilation showing relative absence of radiotracer uptake and lateral view. IMPRESSION: Somewhat nondiagnostic exam due to clumping of radiotracer on ventilation view. Defects identified to suggest pulmonary embolus. [facility], , 04/24/2024 6:47 PM
--- NOTE | 2024-04-25 05:46 | P.PN ---
Subjective Progress Note Date: 04/24/24 61-year-old female came in with complaints of shortness of breath and hypoxemia believe any oxygen at home presently available. Patient has history of congestive heart failure with EF of around 15 to 20% and patient is also in atrial fibrillation patient is supposed to wear LifeVest has not been wearing it because it shocked her twice in the past. Patient does have a history of COPD as well quit smoking 2 years ago. Although patient has really no significant wheezing patient with elevated BNP of thousand does not have any significant pedal edema chest x-ray is consistent with pulmonary edema. There is no pneumonic infiltrate patient does complain of cough without any significant sputum production. Patient is on anticoagulation with Eliquis 04/21/2024 Patient evaluated today in follow up in the ICU. Patient has been transition to oral Lasix 40 mg twice daily. Remains on oral Eliquis. Patient has been taken off IV Cardizem continues on oral amiodarone. Additionally on oral metoprolol. Currently on oral prednisone. heart rate is better controlled at 110 and sinus tachycardia. Blood pressure marginal 83/49. Has not been started on pressor support at this time. 04/22/2024 Patient is evaluated in follow-up in the ICU. She is awake alert and oriented she remains in sinus tachycardia with heart rate of 120s. She continues on oral amiodarone oral Lasix. Chest x-ray today reveals no radiographic evidence for an acute process there is cardiomegaly with post CABG changes. There is redemonstration of a known thoracic aortic aneurysm. 04/23/2024 Patient remains in the intensive care unit and reports that she has been downgraded to the medical floor. She is awake alert and oriented resting in bed she states overall she is feeling improved from admission. Her heart rate remains in the 120s. She continues on oral amiodarone and oral metoprolol with doses were increased yesterday. She is also on oral Lasix twice daily. She has no acute complaints at this time. Labs today reveal a white blood cell count of 10.4, hemoglobin 12.0, sodium 141, potassium 4.1, BUN of 39 creatinine of 1.02 and a calcium level of 9.3. 04/24/2024 Patient is seen in follow-up today continues as a 3 S. hold in the ICU being followed by pulmonary and cardiology. Patient continues to report significant shortness of breath and working to breathe. Will add D-dimer and if positive may need further imaging. Patient is continued on Eliquis and will continue at this time. Medications being adjusted per cardiology and has been transition to oral Lasix. Continue breathing treatments and steroids at this time and will follow-up on repeat labs. Encouraged increase activity as tolerated and awaiting PT/OT therapy. Review of Systems Constitutional: Denied any fatigue denied any fever. Cardio vascular: denied any chest pain, palpitations Gastrointestinal: denied any nausea, vomiting, diarrhea Pulmonary: Reports continued significant shortness of breath Neurologic denied any new focal deficits All inpatient medications were reviewed and appropriate changes in these medications as dictated in the interval history and assessment and plan. PHYSICAL EXAMINATION: GENERAL: The patient is alert and oriented x3, is in mild respiratory distress well developed, well nourished. Elderly appearing HEENT: Pupils are round and equally reacting to light. EOMI. No scleral icterus. No conjunctival pallor. Normocephalic, atraumatic. No pharyngeal erythema. No thyromegaly. CARDIOVASCULAR: S1 and S2 muffled PULMONARY: Diminished breath sounds bilaterally with some scattered faint e xpiratory wheezes and coarse rhonchi noted ABDOMEN: Soft, nontender, nondistended, normoactive bowel sounds. No palpable organomegaly. MUSCULOSKELETAL: No joint swelling or deformity. EXTREMITIES: No cyanosis, clubbing, or pedal edema. NEUROLOGICAL: Gross neurological examination did not reveal any focal deficits. SKIN: No rashes. Assessment: -Acute hypoxic respiratory failure, multifactorial secondary to congestive heart failure, chronic systolic dysfunction as well as COPD exacerbation -Atrial fibrillation with RVR; currently rate controlled, anticoagulated with eliquis. -Acute on chronic hypercapnic respiratory failure secondary to mild COPD exacerbation -Hypertension -Hyperlipidemia -Coronary artery disease with CABG in the past -ischemic cardiomyopathy secondary to coronary disease -Congestive heart failure chronic systolic function with acute exacerbation patient has ischemic cardiomyopathy -GI prophylaxis -DVT prophylaxis: Patient is on Eliquis -Full code Plan: Cardiology following closely and doses of amiodarone and metoprolol were increased and being adjusted. Patient has been transition to oral Lasix. Patient continues on 400 mg of amiodarone twice daily as well as oral metoprolol XL 100 mg twice daily Continue cardiac monitoring, currently in the ICU although a downgrade and awaiting a bed is 3 S. has not available Encouraged increase activity as tolerated and awaiting PT/OT therapy evaluation Patient continuing to have significant shortness of breath and will obtain a D- dimer and if positive will need to undergo VQ scan as kidney functions are eleva anahy Repeat labs in the a.m. The impression and plan of care has been dictated by Marion Castro, Nurse Practitioner as directed. Dr. Rolan MD I have performed a history and physical examination and medical decision making of this patient, discussed the same with the dictator, and agree with the dictators assessment and plan as written, documented as a scribe. Based on total visit time, I have performed more than 50% of this visit. Objective - Vital Signs Vital signs: Vital Signs Temp 98.0 F 04/25/24 04:00 Pulse 104 H 04/25/24 04:00 Resp 20 04/25/24 04:00 BP 102/72 04/25/24 04:00 Pulse Ox 97 04/25/24 04:00 FiO2 Intake & Output 04/24/24 04/24/24 04/25/24 06:59 18:59 06:59 Output Total 0 Balance 0 Weight 79.6 kg 81.6 kg Output: Stool 0 Other: Voiding Method Bedside Commode Bedside Commode # Voids 3 2 0 # Bowel Movements 1 - Labs CBC & Chem 7: 04/23/24 02:56 04/24/24 04:06 Labs: Abnormal Lab Results - Last 24 Hours (Table) 04/24/24 Range/Units 14:01 D-Dimer 1.77 H (<0.60) mg/L FEU
[2024-04-25 06:31] LABS: African American GFR (CKD) 40 (>60 ml/min/1.73 sqM); Anion Gap 16 mmol/L; Blood Urea Nitrogen 55 mg/dL (7-17); Calcium 9.4 mg/dL (8.4-10.2); Carbon Dioxide 21 mmol/L (22-30); Chloride 102 mmol/L (98-107); Glucose 149 mg/dL (74-99); Non-African American GFR(CKD) 35 (>60 ml/min/1.73 sqM); Potassium 5.1 mmol/L (3.5-5.1); Sodium 139 mmol/L (137-145)
[2024-04-25] MEDS: ALPRAZolam 0.5 MG TAB PO PRN (13:14)
--- NOTE | 2024-04-25 13:44 | P.PN ---
Subjective Progress Note Date: 04/25/24 Principal diagnosis: Acute hypoxic respiratory failure secondary to COPD exacerbation, chronic systolic congestive heart failure with LV dysfunction, and atrial fibrillation with RVR. Patient is a 69-year-old female with past medical history significant for atrial fibrillation, hypertension, hyperlipidemia, coronary artery disease with previous CABG, ischemic cardiomyopathy with ejection fraction 15 to 20%, thoracic aortic aneurysm, former tobacco smoker, and asthma/COPD. Presents to the emergency department last night with a chief complaint of shortness of breath that worsened yesterday. Workup in the emergency department found patient to be in atrial fibrillation with rapid ventricular rate. Rate up to 140s bpm. She was started on Cardizem infusion. Chest x-ray showing cardiomegaly with interstitial prominence. NT proBNP was elevated at 5720. CBC unremarkable for leukocytosis, WBC count 5.7, hemoglobin 11.9, platelets 160. CMP: Sodium 143, potassium 3.1, chloride 110, serum bicarb 21, BUN 18, creatinine 0.77, glucose 147. Lactic 1.7. LFTs not elevated. Troponin 0.013. NT proBNP 5720. Recent available echocardiogram from February, showing severe impairment of left ventricular systolic function with an ejection fraction of 15 to 20%. Also, m oderate to severe mitral regurgitation along with mild to moderate tricuspid regurgitation. Previously had LifeVest, which reportedly shocked her twice. She stopped wearing it, and sent it back approximately 1 month ago. Patient currently being evaluated in the emergency department. On 2L nasal cannula without distress. Denies home O2 use. Spo2 reading 92% on bedside monitor. Heart rhythm remains in A.fib with RVR. Heart rate 100-120 bpm. Cardizem infusing at 5mg/hr. States that she was "sick" last Wednesday. Having shortness of breath with associated cough with occasional white phlegm production. Denies any fevers or chills. Denies nausea or vomiting or diarrhea. Denies sick contacts. Lives with her daughter. Does have history of asthma/COPD. Former tobacco smoker, quit 3 years ago. She is unsure of her inhalers, but does have an as needed albuterol inhaler. Tried using her rescue inhaler without much relief. She felt that her "heart was acting up". Endorses palpitations. Denies any chest pain, orthopnea, lower extremity swelling, lightheadedness or syncopal events. Denies missing any doses of Lasix. Is chronically anticoagulated on Eliquis. Most recent vital signs: Afebrile, heart rate 91 bpm, blood pressure 111/75 mmHg, nontachypneic, SpO2 reading 94% on 2 L/min nasal cannula. On 04/21/2024, the patient is being seen in follow-up in the intensive care unit. Noted, earlier this morning, the patient encountered some hypotension. Based on that, the patient got transferred to the ICU. She was given to 50 cc of bolus of normal saline and currently she is normotensive. She is on 3 L of oxygen by nasal cannula. Denies having any chest pain. Denies having any s ignificant shortness of breath. She is still tachycardic and she remains in atrial fibrillation. Pulse ox is in the order of 91% on 2 L of oxygen by nasal cannula. The patient is currently on anticoagulation with Eliquis 5 mg p.o. twice a day. The patient remains on amiodarone 2 mg p.o. twice a day and metoprolol 50 mg daily. She is also on Aldactone. She is on bronchodilators. She is on a prednisone burst taper. 04/22/2024, the patient is being seen for a follow-up. The patient is awake and alert and denies any chest pain or shortness of breath. Nevertheless, the patient continues to be tachycardic. The patient may be in a flutter rhythm. A twelve-lead EKG was ordered accordingly. The patient is currently on metoprolol 100 mg p.o. daily. The patient is on centimeter of 5 mg p.o. twice a day. She is on anticoagulation with Eliquis 5 mg p.o. twice daily. Cardiology has been involved in the case. Normotensive. Producing adequate amount of urine output. The white cell count is at 10.6 with a hemoglobin of 12 and a platelet count of 187. Sodium is at 142, BUN 39 with a creatinine of 1.1. The patient is oxygenating adequately and the patient remains on 2 L of oxygen nasal cannula with a pulse ox of 95%. On 04/23/2024, the patient is being seen for a follow-up. The patient is currently on 2 L of oxygen by nasal cannula. She continues to be sinus tachycardia. She is on metoprolol 100 mg p.o. daily and the dose will be modified based on her ongoing tachycardia. The patient remains on amiodarone 4 mg p.o. twice a day and the patient is also on anticoagulation with Eliquis. She is on Lasix 40 mg p.o. twice a day and Aldactone 25 mg p.o. today. Calm and comfortable. No significant shortness of breath. No ventricular arrhythmias. WBC count is at 10.4 with a hemoglobin 12 and a platelet count of 189. Sodium is at 141, BUN 39 and the creatinine is 1.02. No other significant events overnight. Patient was evaluated today on 04/24/2024, remains in the ICU, on 3 L nasal cannula, O2 sats 97%, patient is hemodynamically stable, but she continues to have significant complaints mostly shortness of breath, intermittent cough, no chest pain, no fever, no chills, no hemoptysis. Electrolytes are normal BUN is 42 creatinine 1.32. WBC count is 10.4 hemoglobin is 12, chest x-ray yesterday showed cardiomegaly with post CABG changes, and known thoracic aortic aneurysm. No evidence of pulmonary edema. Patient remains on Eliquis, amiodarone 400 twice daily orally, farxiga, prednisone 40 mg daily Aldactone 25 mg daily she is on updrafts using albuterol/iPratropium bromide, Lasix 40 mg twice daily, and she is on Symbicort. Today I will try to transfer the patient out of the ICU to a monitored bed and selective. Patient was seen today on 04/25/2024, she is now on overflow in the ICU, remains on 2 L nasal cannula, does not seem to be in distress, for some reason her admitting physician ordered a VQ scan, patient is already on Eliquis, and her VQ scan is vague and was poor quality according to the radiologist. Nonetheless the patient is already on Eliquis, and probably she did not need the VQ scan in the first place. Her labs today were reviewed, her electrolytes are normal BUN is 55 creatinine 1.52. Patient denies being short of breath, remains on Eliquis amiodarone prednisone Aldactone and she is also on albuterol updrafts. With ipratropium bromide. Objective - Vital Signs Vital signs: Vital Signs Temp 97.7 F 04/25/24 13:00 Pulse 98 04/25/24 13:00 Resp 29 H 04/25/24 13:00 BP 89/74 04/25/24 13:00 Pulse Ox 99 04/25/24 13:00 FiO2 Intake & Output 04/24/24 04/25/24 04/25/24 18:59 06:59 18:59 Output Total 0 100 Balance 0 -100 Weight 81.6 kg Output: Urine 100 Stool 0 Other: Voiding Method Bedside Commode Bedside Commode Bedside Commode # Voids 2 1 - Exam GENERAL EXAM: 69-year-old -[place] female in no distress on 2 L nasal cannula HEAD: Normocephalic and atraumatic EYES: Normal reaction of pupils, equal size. NOSE: Clear with pink turbinates. THROAT: No erythema or exudates. NECK: No masses, no JVD. CHEST: No chest wall deformity. LUNGS: Minimal crackles at the bases, no rhonchi no wheezes CVS: Irregular rhythm, no S3 gallop, 2/6 systolic murmur throughout the precordium ABDOMEN: No hepatosplenomegaly, active bowel sounds, no guarding or rigidity. SKIN: No rashes CENTRAL NERVOUS SYSTEM: Alert oriented x 3 no gross focal deficit EXTREMITIES: No clubbing edema or cyanosis - Labs CBC & Chem 7: 04/23/24 02:56 04/25/24 05:27 Labs: Abnormal Lab Results - Last 24 Hours (Table) 04/24/24 04/25/24 Range/Units 14:01 05:27 D-Dimer 1.77 H (<0.60) mg/L FEU Carbon Dioxide 21 L (22-30) mmol/L BUN 55 H (7-17) mg/dL Creatinine 1.52 H (0.52-1.04) mg/dL Glucose 149 H (74-99) mg/dL Assessment and Plan Assessment: Impression: Acute hypoxic respiratory failure secondary to chronic systolic congestive heart failure, COPD exacerbation, and atrial fibrillation with RVR. Benign essential hypertension Dyslipidemia Coronary arteriosclerosis and previous CABG Severe ischemic cardiomyopathy and LV dysfunction with ejection fraction of 15 to 20% Moderate mitral regurgitation History of descending thoracic aortic aneurysm, not a surgical candidate Ex-smoker Recommendation: Continue oxygen and titrate accordingly Continue amiodarone 400 twice daily Continue metoprolol 100 twice daily Continue diuretics/Lasix 40 mg twice daily Continue Eliquis Continue DuoNeb and Symbicort Continue prednisone and taper Patient to be transferred to 3 S. once a bed is available Will follow Time with Patient: Less than 30
--- NOTE | 2024-04-25 14:02 | XR ---
EXAMINATION TYPE: XR chest 1V portable DATE OF EXAM: 04/25/2024 1:58 PM COMPARISON: 04/23/2024 CLINICAL INDICATION: Female, 69 years old with history of shortness of breath, TECHNIQUE: XR chest 1V portable views of the chest are obtained. FINDINGS: Demonstrated are scattered senescent parenchymal change. There is no evidence for focal infiltrate. Stable cardiomegaly. Median sternotomy wires. Hilar and mediastinal structures are within normal limits. Degenerative changes are seen of the dorsal spine. IMPRESSION: 1. Chronic changes without evidence for acute pulmonary disease. [facility], , 04/25/2024 2:00 PM
--- NOTE | 2024-04-25 14:36 | P.PN ---
Subjective Progress Note Date: 04/25/24 The patient is a 69-year-old female with multiple comorbid conditions. Patient is currently admitted with A-fib with RVR. Beta-blockers were increased yesterday and she remains on oral amiodarone. Patient interviewed and examined resting comfortably in bed. She denies any chest pain or difficulty breathing currently. She states she was up in the recliner chair for several hours yesterday and did well. GENERAL: Well-appearing, well-nourished and in no acute distress. NECK: Supple without JVD or thyromegaly. LUNGS: Breath sounds diminished to auscultation bilaterally. Respiration equal and unlabored. No wheezes, rales or rhonchi. HEART: Irregular rate and rhythm without murmurs, rubs or gallops. S1 and S2 heard. EXTREMITIES: Normal range of motion, no edema. No clubbing or cyanosis. Periphe ral pulses intact and strong. 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 Objective - Vital Signs Vital signs: Vital Signs Temp 97.7 F 04/25/24 13:00 Pulse 98 04/25/24 13:00 Resp 29 H 04/25/24 13:00 BP 89/74 04/25/24 13:00 Pulse Ox 99 04/25/24 13:00 FiO2 Intake & Output 04/24/24 04/25/24 04/25/24 18:59 06:59 18:59 Output Total 0 100 Balance 0 -100 Weight 81.6 kg Output: Urine 100 Stool 0 Other: Voiding Method Bedside Commode Bedside Commode Bedside Commode # Voids 2 1 - Labs CBC & Chem 7: 04/23/24 02:56 04/25/24 05:27 Labs: Abnormal Lab Results - Last 24 Hours (Table) 04/24/24 04/25/24 Range/Units 14:01 05:27 D-Dimer 1.77 H (<0.60) mg/L FEU Carbon Dioxide 21 L (22-30) mmol/L BUN 55 H (7-17) mg/dL Creatinine 1.52 H (0.52-1.04) mg/dL Glucose 149 H (74-99) mg/dL
--- NOTE | 2024-04-25 14:41 | US ---
EXAMINATION TYPE: US venous doppler duplex LE BI DATE OF EXAM: 04/25/2024 2:35 PM Exam done portable in ICU COMPARISON: NONE CLINICAL INDICATION: Female, 69 years old with history of swelling; , Pain TECHNIQUE: The lower extremity deep venous system is examined utilizing real time linear array sonog yasmine with graded compression, color doppler sonography, and spectral doppler. SIDE PERFORMED: Bilateral FINDINGS: VESSELS IMAGED: Common Femoral Vein Deep Femoral Vein Greater Saphenous Vein * Femoral Vein Popliteal Vein Small Saphenous Vein * Proximal Calf Veins (* superficial vessels) Right Leg: Appears negative for DVT Left Leg: Appears negative for DVT IMPRESSION: No ultrasound evidence for deep venous thrombosis. [facility], , 04/25/2024 2:39 PM
--- NOTE | 2024-04-25 17:08 | CT ---
EXAMINATION TYPE: CT chest wo con DATE OF EXAM: 04/25/2024 4:50 PM COMPARISON: Previous CT chest exam study 02/07/2024. CLINICAL INDICATION: Female, 69 years old with history of dyspnea; PHH, dyspnea TECHNIQUE: Multiple axial images were obtained through the chest. Sagittal and coronal reformats were created for review. MIP was performed on a separate workstation. CT DLP: 308.9 mGycm, Automated exposure control for dose reduction was used. FINDINGS: LUNGS/ PLEURA: Trace right-sided pleural effusion. Emphysema. No sizable left pleural effusion. No ne w suspicious or enlarging pulmonary nodule. No acute focal consolidation. AIRWAY: Patent and unremarkable. HEART: Cardiomegaly and postsurgical changes compatible with previous CABG. Severe constipation of na tive coronary arteries. Median sternotomy wires noted.. MEDIASTINUM: No gross evidence of adenopathy. VASCULATURE: Dilated main pulmonary artery measuring 3.6 cm in diameter. Large either saccular aneury sm or contained rupture of the descending thoracic aorta measuring up to 9.4 x 6.4 cm including the e xcluded sac (series 3 image 73), similar to recent study 02/07/2024. Findings are not well evaluated given lack of IV contrast. MUSCULOSKELETAL: No acute osseous abnormalities SOFT TISSUES/LYMPH NODES: Unremarkable. LOWER NECK: Heterogeneous enlarged thyroid gland with numerous calcified nodules and substernal exten malinda of the right thyroid lobe into the mediastinum. UPPER ABDOMEN: Cholelithiasis. Extensive renal vascular calcifications. IMPRESSION: 1. Cardiomegaly and trace right pleural effusion. 2. Emphysema. 3. Large either saccular aneurysm or contained rupture of the descending thoracic aorta measuring up to 9.4 x 6.4 cm including the excluded sac. Findings are incompletely evaluated given lack of IV con trast but appear similar to prior study 02/07/2024. Vascular surgery consultation is recommended if n ot already performed. 4. Markedly enlarged thyroid gland with right thyroid lobe substernal extension into the mediastinum . 5. Cholelithiasis. [facility], , 04/25/2024 5:06 PM
[2024-04-25 20:08] LABS: Glucose,Whole Blood 206 mg/dL (70-110)
--- NOTE | 2024-04-25 20:33 | CT ---
EXAMINATION TYPE: CODE STROKE: CT brain wo contr DATE OF EXAM: 04/25/2024 8:27 PM COMPARISON: None available.. CLINICAL INDICATION: Female, 69 years old with history of Neuro deficit, acute, stroke suspected, aph young, unresponsive, last known well 1941 TECHNIQUE: Brain: Axial CT images of the brain were obtained with coronal and sagittal reformats created and rev iewed. Contrast used: None. Oral contrast used: None. CT DLP: 1131..6 mGycm, Automated exposure control for dose reduction was used. FINDINGS: Brain: Extra-axial spaces: No abnormal extra-axial fluid collections. Ventricular system: Dilatation in proportion to cerebral atrophy. Cerebral parenchyma: No acute intraparenchymal hemorrhage or mass effect. Scattered hypoattenuating areas are seen within the white matter. Cerebellum: Encephalomalacia in the left cerebellar hemisphere demonstrating fluid Hounsfield attenua tion suggestive of an old infarct. Mass effect: No evidence of midline shift. Intracranial vasculature: unremarkable Soft tissues: Normal. Calvarium/osseous structures: No depressed skull fracture. Paranasal sinuses and mastoid air cells: Mild scattered paranasal sinus disease. Visualized orbits: Orbital contents are intact. IMPRESSION: No acute intracranial process. [facility], , 04/25/2024 8:31 PM
[2024-04-25 20:47] LABS: Anisocytosis Slight; Basophils % (A) 0 %; Eosinophils # (A) 0.1 k/uL (0-0.7); Eosinophils % (A) 1 %; HCT 42.2 % (34.0-46.0); HGB 13.3 gm/dL (11.4-16.0); Hypochromasia Marked; Lymphocytes # (A) 1.1 k/uL (1.0-4.8); Lymphocytes % (A) 14 %; MCH 26.7 pg (25.0-35.0); MCHC 31.5 g/dL (31.0-37.0); MCV 84.8 fL (80.0-100.0); Mean Platelet Volume 9.8; Monocytes # (A) 0.3 k/uL (0-1.0); Monocytes % (A) 4 %; Neutrophils # (A) 5.9 k/uL (1.3-7.7); Neutrophils % (A) 80 %; Platelet Count 200 k/uL (150-450); RBC 4.98 m/uL (3.80-5.40); RDW 17.5 % (11.5-15.5); WBC 7.4 k/uL (3.8-10.6)
--- NOTE | 2024-04-25 20:53 | CT ---
EXAMINATION TYPE: CODE STROKE: CTA head neck DATE OF EXAM: 04/25/2024 8:40 PM COMPARISON: None. CLINICAL INDICATION: Female, 69 years old with history of Neuro deficit, acute, stroke suspected; PHH , Aphasia, unresponsive. Last known well 1947 TECHNIQUE: Axially acquired helical CT angiogram of the head and neck was obtained with contrast. Axi al images are supplemented with 3D reconstructions and MIP images which [facility]. Contrast used:65 mL of Isovue 370 without and with IV Contrast, Oral contrast used: None. CT DLP: total 2349.6 mGycm, Automated exposure control for dose reduction was used. FINDINGS: Study is nearly nondiagnostic due to patient's low cardiac output and suboptimal timing of contrast b olus. Initial arterial phase images through the head and neck demonstrated no contrast within the car otid or vertebrobasilar systems. Delayed phase imaging was acquired after 3-4 minutes. Study also sev erely limited due to motion artifact and patient body habitus/streak artifact. Partially visualized small right pleural effusion. Calcified atherosclerotic disease of the thoracic aorta. Enlarged heterogeneous thyroid gland with right thyroid lobe substernal extension into the med iastinum. Median sternotomy wires. Suspected greater than 70% stenosis of the proximal internal carotid artery due to dense calcified pl aque, incompletely evaluated. Poorly opacified bilateral extracranial vertebral arteries. Basilar artery is very diminutive in moustapha atif. Suspected left dominant vertebral artery system. No large occlusive thrombosis involving the pro ximal middle cerebral artery is and proximal anterior cerebral arteries. IMPRESSION: 1. Essentially nondiagnostic study given technical factors as described above related to low cardiac output and timing of contrast bolus. 2. 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 Recommend either MRI for furthe r evaluation for repeat CTA head/neck exam as clinically indicated. 3. No occlusive thrombus within the proximal middle cerebral arteries and proximal anterior cerebral arteries. 4. Dense calcified plaque and suspected greater than 70% stenosis of the bilateral cervical internal carotid arteries, also incompletely evaluated. [facility], , 04/25/2024 8:51 PM
[2024-04-25 20:59] LABS: ALT 35 U/L (4-34); AST 30 U/L (14-36); African American GFR (CKD) 40 (>60 ml/min/1.73 sqM); Albumin 3.7 g/dL (3.5-5.0); Alkaline Phosphatase 77 U/L (38-126); Anion Gap 13 mmol/L; Blood Urea Nitrogen 60 mg/dL (7-17); Calcium 8.8 mg/dL (8.4-10.2); Carbon Dioxide 19 mmol/L (22-30); Chloride 103 mmol/L (98-107); Glucose 185 mg/dL (74-99); Non-African American GFR(CKD) 35 (>60 ml/min/1.73 sqM); Sodium 135 mmol/L (137-145); Total Bilirubin 1.3 mg/dL (0.2-1.3); Total Protein 6.3 g/dL (6.3-8.2)
[2024-04-25 21:00] LABS: Partial Thromboplastin Time 23.7 sec (22.0-30.0); Prothrombin Time 19.9 sec (10.0-12.5)
[2024-04-25] MEDS: SODIUM CHLORIDE 0.9% 250 ML IV SCH (21:27)
[2024-04-25] MEDS: ASPIRIN 325 MG TAB PO STA (22:14)
--- NOTE | 2024-04-26 06:00 | P.PN ---
Subjective Progress Note Date: 04/25/24 61-year-old female came in with complaints of shortness of breath and hypoxemia believe any oxygen at home presently available. Patient has history of congestive heart failure with EF of around 15 to 20% and patient is also in atrial fibrillation patient is supposed to wear LifeVest has not been wearing it because it shocked her twice in the past. Patient does have a history of COPD as well quit smoking 2 years ago. Although patient has really no significant wheezing patient with elevated BNP of thousand does not have any significant pedal edema chest x-ray is consistent with pulmonary edema. There is no pneumonic infiltrate patient does complain of cough without any significant sputum production. Patient is on anticoagulation with Eliquis 04/21/2024 Patient evaluated today in follow up in the ICU. Patient has been transition to oral Lasix 40 mg twice daily. Remains on oral Eliquis. Patient has been taken off IV Cardizem continues on oral amiodarone. Additionally on oral metoprolol. Currently on oral prednisone. heart rate is better controlled at 110 and sinus tachycardia. Blood pressure marginal 83/49. Has not been started on pressor support at this time. 04/22/2024 Patient is evaluated in follow-up in the ICU. She is awake alert and oriented she remains in sinus tachycardia with heart rate of 120s. She continues on oral amiodarone oral Lasix. Chest x-ray today reveals no radiographic evidence for an acute process there is cardiomegaly with post CABG changes. There is redemonstration of a known thoracic aortic aneurysm. 04/23/2024 Patient remains in the intensive care unit and reports that she has been downgraded to the medical floor. She is awake alert and oriented resting in bed she states overall she is feeling improved from admission. Her heart rate remains in the 120s. She continues on oral amiodarone and oral metoprolol with doses were increased yesterday. She is also on oral Lasix twice daily. She has no acute complaints at this time. Labs today reveal a white blood cell count of 10.4, hemoglobin 12.0, sodium 141, potassium 4.1, BUN of 39 creatinine of 1.02 and a calcium level of 9.3. 04/24/2024 Patient is seen in follow-up today continues as a 3 S. hold in the ICU being followed by pulmonary and cardiology. Patient continues to report significant shortness of breath and working to breathe. Will add D-dimer and if positive may need further imaging. Patient is continued on Eliquis and will continue at this time. Medications being adjusted per cardiology and has been transition to oral Lasix. Continue breathing treatments and steroids at this time and will follow-up on repeat labs. Encouraged increase activity as tolerated and awaiting PT/OT therapy. 04/25/2024 Patient is seen in follow-up this morning continues to be in the ICU although is a downgrade once a bed is available. Patient being followed by cardiology as well as pulmonary and continues to report significant shortness of breath although reports feeling minimally improved from yesterday. D-dimer was positive and patient is maintained on Eliquis with no history of PE and will obtain a VQ scan his kidney functions are elevated and unable to perform CT. Hematology consulted as well as there was concerned of abnormal filling on VQ scan and unsure if patient is truly compliant with medications. Patient reportedly does not wear oxygen outpatient although continues to require oxygen and recommend to wean FiO2 as tolerated and will undergo testing for possible home O2. Patient continues to be dyspneic with conversation and with getting up and walking to the bathroom. Given patient's kidney functions are elevated will hold Lasix and also Aldactone at this time and follow-up on repeat labs. Review of Systems Constitutional: Denied any fatigue denied any fever. Cardio vascular: denied any chest pain, palpitations Gastrointestinal: denied any nausea, vomiting, diarrhea Pulmonary: Reports continued significant shortness of breath and only minimally improved from yesterday Neurologic denied any new focal deficits All inpatient medications were reviewed and appropriate changes in these medications as dictated in the interval history and assessment and plan. PHYSICAL EXAMINATION: GENERAL: The patient is alert and oriented x3, is in mild respiratory distress well developed, well nourished. Elderly appearing HEENT: Pupils are round and equally reacting to light. EOMI. No scleral icterus. No conjunctival pallor. Normocephalic, atraumatic. No pharyngeal erythema. No thyromegaly. CARDIOVASCULAR: S1 and S2 muffled PULMONARY: Diminished breath sounds bilaterally with some scattered faint expiratory wheezes and coarse rhonchi noted ABDOMEN: Soft, nontender, nondistended, normoactive bowel sounds. No palpable organomegaly. MUSCULOSKELETAL: No joint swelling or deformity. EXTREMITIES: No cyanosis, clubbing, or pedal edema. NEUROLOGICAL: Gross neurological examination did not reveal any focal deficits. SKIN: No rashes. Assessment: -Acute hypoxic respiratory failure, multifactorial secondary to congestive heart failure, chronic systolic dysfunction as well as COPD exacerbation -Atrial fibrillation with RVR; persistent, maintained on Eliquis -Elevated D-dimer with inconclusive V/Q awaiting addended note per radiologist, unable to perform CT given patient's kidney functions. Patient is maintained on Eliquis and denies any history of blood clots or PE -Hypertension -Hyperlipidemia -Coronary artery disease with CABG in the past -Descending thoracic aortic aneurysm history, not a surgical candidate -ischemic cardiomyopathy with an EF of 15 to 20% secondary to coronary disease -Congestive heart failure chronic systolic function with acute exacerbation patient has ischemic cardiomyopathy -GI prophylaxis -DVT prophylaxis: Patient is on Eliquis -Full code Plan: Cardiology following closely and doses of amiodarone and metoprolol were increased and being adjusted. Patient has been transitioned to oral Lasix and Aldactone resumed. Will hold Lasix and Aldactone as kidney functions are worsening. Patient continues on 400 mg of amiodarone twice daily as well as oral metoprolol XL 100 mg twice daily Continue cardiac monitoring, currently in the ICU although a downgrade and awaiting a bed is 3 S. has not available D-dimer was elevated and unable to perform CT, VQ scan initially suboptimal study and appears to have some abnormal defects on imaging. Per nursing staff awaiting addended report from radiology. Will order CT chest without contrast for further evaluation as patient continues to report significant shortness of breath. Patient is continued on Eliquis and will continue for now Encouraged increase activity as tolerated and awaiting PT/OT therapy evaluation Wean FiO2 as tolerated as patient does not wear oxygen outpatient, patient may need oxygen on discharge and will assess home O2. Recommend incentive spirometer use at least 10 times every hour while awake Repeat labs in the a.m. Due to multiple complex medical issues, overall prognosis is guarded The impression and plan of care has been dictated by Marion Castro Nurse Practitioner as directed. Dr. Rolan MD I have performed a history and physical examination and medical decision making of this patient, discussed the same with the dictator, and agree with the dictators assessment and plan as written, documented as a scribe. Based on total visit time, I have performed more than 50% of this visit. Objective - Vital Signs Vital signs: Vital Signs Temp 97.1 F L 04/26/24 04:05 Pulse 70 04/26/24 04:05 Resp 24 04/26/24 04:05 BP 86/67 04/26/24 04:05 Pulse Ox 97 04/26/24 04:05 FiO2 Intake & Output 04/25/24 04/25/24 04/26/24 06:59 18:59 06:59 Intake Total 180 Output Total 100 300 Balance -100 -120 Weight 81.6 kg 78.5 kg Intake: Oral 180 Output: Urine 100 300 Other: Voiding Method Bedside Commode Bedside Commode Incontinent # Voids 1 1 1 - Labs CBC & Chem 7: 04/25/24 20:33 04/25/24 20:33 Labs: Abnormal Lab Results - Last 24 Hours (Table) 04/25/24 04/25/24 04/25/24 Range/Units 05:27 20:06 20:33 RDW 17.5 H (11.5-15.5) % PT (10.0-12.5) sec INR (<1.2) Sodium (137-145) mmol/L Carbon Dioxide 21 L (22-30) mmol/L BUN 55 H (7-17) mg/dL Creatinine 1.52 H (0.52-1.04) mg/dL Glucose 149 H (74-99) mg/dL POC Glucose (mg/dL) 206 H (70-110) mg/dL ALT (4-34) U/L 04/25/24 04/25/24 Range/Units 20:33 20:33 RDW (11.5-15.5) % PT 19.9 H (10.0-12.5) sec INR 2.0 H (<1.2) Sodium 135 L (137-145) mmol/L Carbon Dioxide 19 L (22-30) mmol/L BUN 60 H (7-17) mg/dL Creatinine 1.52 H (0.52-1.04) mg/dL Glucose 185 H (74-99) mg/dL POC Glucose (mg/dL) (70-110) mg/dL ALT 35 H (4-34) U/L
[2024-04-26 07:00] LABS: Anisocytosis Slight; HCT 43.4 % (34.0-46.0); HGB 13.3 gm/dL (11.4-16.0); Hypochromasia Marked; MCH 25.9 pg (25.0-35.0); MCHC 30.5 g/dL (31.0-37.0); MCV 84.6 fL (80.0-100.0); Mean Platelet Volume 10.1; Platelet Count 243 k/uL (150-450); RBC 5.13 m/uL (3.80-5.40); RDW 17.6 % (11.5-15.5); WBC 10.4 k/uL (3.8-10.6)
[2024-04-26 07:09] LABS: ALT 43 U/L (4-34); AST 37 U/L (14-36); African American GFR (CKD) 32 (>60 ml/min/1.73 sqM); Albumin 4.3 g/dL (3.5-5.0); Alkaline Phosphatase 91 U/L (38-126); Anion Gap 13 mmol/L; Blood Urea Nitrogen 64 mg/dL (7-17); Calcium 9.5 mg/dL (8.4-10.2); Carbon Dioxide 25 mmol/L (22-30); Chloride 102 mmol/L (98-107); Glucose 104 mg/dL (74-99); Non-African American GFR(CKD) 28 (>60 ml/min/1.73 sqM); Potassium 5.5 mmol/L (3.5-5.1); Sodium 140 mmol/L (137-145); Total Bilirubin 1.6 mg/dL (0.2-1.3)
[2024-04-26] MEDS: AMIODARONE 200 MG TAB PO SCH (08:14)
--- NOTE | 2024-04-26 12:06 | P.CNNES ---
History of Present Illness Consult date: 04/26/24 Requesting physician: Fidel Fischer Reason for Consult: CODE STROKE History of Present Illness: Patient is a 69-year-old right-handed female, with history of CHF, COPD, came to the hospital by ambulance on 09/19/2024 at 8 PM for difficulty breathing. Patient was diagnosed with atrial fibrillation with rapid ventricular rate, chronic systolic congestive heart failure, possible acute asthma/COPD exacerbation, acute hypoxemic respiratory failure due to above. Patient has been seen by cardiology, started on Eliquis 5 mg twice daily. Patient had a stroke code activated yesterday, when as per nursing report, she checked on her at 7:42 PM and she was fine. She checked her vitals. When she went back in the room at 8:05 PM, she was unresponsive, and lasted for about 5 to 10 minutes. When she if woke up, she was having slurred speech, confused. Patient underwent CT head, CTA of head and neck. Patient was not a candidate for TNK, because she has been on Eliquis for last few days. Aspirin was given. No intervention was recommended. The nurse did not report any weakness, only speech difficulty and confusion. No seizure-like activity was noted. Patient at present appears to be in significant respiratory distress. She is having very labored breathing. She states that last week she woke up and could not barely breathe. Patient states that yesterday she wanted to sleep and it just "scared them". Does not believe she had any stroke. Patient at present denies any headache. Patient states she is stopped smoking 3 years ago. When asked how long she smoked, she states for 3 years. Patient appears somewhat confused. As per nurse report, patient seems to be slightly worse for her. She has scattered thoughts, slurred, using wrong words. However I did not notice any ob vious aphasia as per examination. Vital signs blood pressure 104/72, heart rate 51, saturation 99%, temperature normal 97.2. Most recent blood test shows normal CBC. INR 2.0. Sodium 140 potassium 5.5. BUN 64 creatinine 1.83. AST is 37, ALT 43. Troponin negative. CT head showed no acute intracranial process. I personally reviewed CT head, agree with the findings. CT chest showed cardiomegaly with trace right pleural effusion. Emphysema. Large either saccular aneurysm or contained rupture of the descending thoracic aorta measuring up to 9.4 x 6.4 cm including the excluded sac. Findings are incompletely evaluated given lack of IV contrast but appears similar to prior study 02/07/2024. Vascular surgery consultation recommended. Markedly enlarged thyroid gland with the right thyroid lobe substernal extension into the mediastinum. Cholelithiasis. Chest x-ray showed chronic changes without evidence for acute pulmonary disease. Past Medical History Past Medical History: Atrial Fibrillation, Asthma, Chest Pain / Angina History of Any Multi-Drug Resistant Organisms: None Reported Past Surgical History: No Surgical Hx Reported Additional Past Surgical History / Comment(s): "open heart surgery" Past Anesthesia/Blood Transfusion Reactions: No Reported Reaction Past Psychological History: No Psychological Hx Reported Smoking Status: Former smoker Past Alcohol Use History: None Reported Past Drug Use History: None Reported - Past Family History Father Family Medical History: No Reported History Medications and Allergies Home Medications Medication Instructions Recorded Confirmed Type Apixaban [Eliquis] 5 mg PO BID 01/16/24 04/20/24 History Nitroglycerin Sl Tabs [Nitrostat] 0.4 mg SUBLINGUAL Q5M PRN 01/16/24 04/20/24 History Budesonide-Formot 160-4.5 Mcg 2 puff INHALATION RT-BID 02/06/24 04/20/24 History [Symbicort 160-4.5 Mcg Inhaler] Losartan [Cozaar] 25 mg PO DAILY 14 Days #14 tab 02/10/24 04/20/24 Rx Furosemide [Lasix] 80 mg PO DAILY 30 Days #30 tab 02/23/24 04/20/24 Rx Atorvastatin [Lipitor] 20 mg PO DAILY 04/20/24 04/20/24 History Furosemide [Lasix] 40 mg PO DAILY@1800 04/20/24 04/20/24 History Metoprolol Succinate [Metoprolol 25 mg PO DAILY 04/20/24 04/20/24 History Succinate ER] Allergies Allergy/AdvReac Type Severity Reaction Status Date / Time adhesive Allergy Rash/Hives Verified 04/20/24 10:17 Physical Examination - Vital Signs Vital Signs: Vital Signs Temp Pulse Pulse Resp BP BP Pulse Ox 04/26/24 09:04 104 H 04/26/24 08:45 100 04/26/24 08:00 97.6 F 98 22 95/65 93 L 04/26/24 04:05 97.1 F L 70 24 86/67 97 04/25/24 23:10 97.5 F L 98 26 H 97/54 99 04/25/24 19:42 97.4 F L 100 24 107/68 98 04/25/24 15:16 97.6 F 99 26 H 111/76 99 04/25/24 15:12 98 04/25/24 15:00 98 04/25/24 13:00 97.7 F 98 29 H 124/84 89/74 99 04/25/24 11:19 104 H 04/25/24 11:04 104 H Intake and Output 04/25/24 04/26/24 04/26/24 22:59 06:59 14:59 Intake Total 180 Output Total 300 Balance -120 Intake: Oral 180 Output: Urine 300 Other: Voiding Method Incontinent Incontinent External Catheter # Voids 1 1 Weight 78.5 kg Patient is an elderly female, who appears very short of breath, with difficulty breathing, having periods of apnea, perhaps from Reinaldo-Sampson breathing. Patient is alert awake, but appears slightly delirious because of respiratory difficulty. She is fairly well oriented to time place and person. She knows it is [facility] but states it is [facility]. She states is November or December 2024. Speech is very laborious because of difficulty breathing and language functions are normal. Patient can name and repeat very well. No obvious aphasia or dysarthria, although difficulty speaking likely due to breathing difficulty. Attention, concentration is decreased and fund of knowledge is difficult to assess due to mentation. On cranial nerve examination, pupils are equal, round and reacting to light, visual garcia appears full on confrontation, although sometimes she neglects the left lower quadrant. She is very inattentive due to difficulty breathing, therefore difficult to assess. Extraocular muscles are intact with no nystagmus. Face is symmetric, tongue protrudes to the midline. Palatal elevation and sensation normal, hearing and shoulder shrug normal, facial sensation normal. On muscle strength testing, there is left pronator drift, about 30 degree and the strength is normal in arms and legs distally and proximally. Deep tendon reflexes are symmetric but hypoactive and plantars downgoing. Sensory to touch was very inconsistent. She does feel both side, but very inconsistent and sometimes she tells the other side is being tested although I am touching the other limb. Cerebellar function showed slight ataxia for [id number] testing, only with the left upper limb. Patient not able to perform [id number] testing on either side because of mentation and difficulty breathing. Tone and bulk of muscles normal. Gait deferred.. On general examination, there is no carotid bruit or murmur, S1-S2 audible. Chest is clear on consultation. Abdomen is soft nontender. No organomegaly, bowel sounds present. Peripheral pulses are present. No peripheral edema. Results - Laboratory Findings CBC and BMP: 04/26/24 06:06 04/26/24 06:06 Abnormal Lab Findings: Abnormal Labs 04/19/24 04/19/24 04/19/24 20:04 20:04 20:06 WBC MCHC 30.0 L RDW 17.0 H Neutrophils # PT 14.8 H INR 1.4 H D-Dimer Sodium Potassium 3.1 L Chloride 110 H Carbon Dioxide 21 L BUN 18 H Creatinine Glucose 147 H POC Glucose (mg/dL) Total Bilirubin 1.5 H AST ALT 04/21/24 04/21/24 04/21/24 05:16 05:23 05:23 WBC 13.9 H MCHC 29.1 L RDW 17.1 H Neutrophils # 11.3 H PT INR D-Dimer Sodium Potassium Chloride 109 H Carbon Dioxide 17 L BUN 27 H Creatinine Glucose 156 H POC Glucose (mg/dL) 200 H Total Bilirubin AST ALT 04/21/24 04/21/24 04/22/24 05:23 05:49 03:07 WBC MCHC RDW Neutrophils # PT 14.6 H INR 1.4 H D-Dimer Sodium Potassium Chloride Carbon Dioxide 20 L BUN 39 H Creatinine 1.11 H Glucose 130 H POC Glucose (mg/dL) 158 H Total Bilirubin AST ALT 04/22/24 04/22/24 04/23/24 03:07 16:51 02:52 WBC MCHC 30.5 L RDW 17.2 H Neutrophils # PT INR D-Dimer Sodium Potassium Chloride Carbon Dioxide BUN 39 H Creatinine Glucose 134 H POC Glucose (mg/dL) 193 H Total Bilirubin AST ALT 04/23/24 04/24/24 04/24/24 02:56 04:06 14:01 WBC MCHC RDW 17.4 H Neutrophils # PT INR D-Dimer 1.77 H Sodium Potassium Chloride Carbon Dioxide BUN 42 H Creatinine 1.32 H Glucose 101 H POC Glucose (mg/dL) Total Bilirubin AST ALT 04/25/24 04/25/24 04/25/24 05:27 20:06 20:33 WBC MCHC RDW 17.5 H Neutrophils # PT INR D-Dimer Sodium Potassium Chloride Carbon Dioxide 21 L BUN 55 H Creatinine 1.52 H Glucose 149 H POC Glucose (mg/dL) 206 H Total Bilirubin AST ALT 04/25/24 04/25/24 04/26/24 20:33 20:33 06:06 WBC MCHC 30.5 L RDW 17.6 H Neutrophils # PT 19.9 H INR 2.0 H D-Dimer Sodium 135 L Potassium Chloride Carbon Dioxide 19 L BUN 60 H Creatinine 1.52 H Glucose 185 H POC Glucose (mg/dL) Total Bilirubin AST ALT 35 H 04/26/24 06:06 WBC MCHC RDW Neutrophils # PT INR D-Dimer Sodium Potassium 5.5 H Chloride Carbon Dioxide BUN 64 H Creatinine 1.83 H Glucose 104 H POC Glucose (mg/dL) Total Bilirubin 1.6 H AST 37 H ALT 43 H Assessment and Plan Assessment: * Possible stroke/TIA manifesting with slurred speech, confusion. At present patient has no obvious aphasia or dysarthria, but does have mild left arm drift. Examination very limited because of delirium related to difficulty breathing. 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 * Hyperlipidemia * Moderate to severe mitral regurgitation Plan: Patient had stroke code yesterday. Patient has mild deficits noted at this time. Patient was not a candidate for TNK because she has been on Eliquis. Recommend MRI of the brain without contrast, evaluate for acute CVA. Patient very short of breath, uncertain if patient will be able to tolerate MRI. Otherwise will repeat CT head in couple days. 2-D echo with bubble study to rule out PFO CTA head and neck showed: Essentially nondiagnostic study given technical factors related to low cardiac output and timing of contrast bolus. 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 Recommend either MRI for further evaluation or repeat CTA head and neck. No occlusive thrombus within the proximal middle cerebral arteries and proximal anterior cerebral arteries. Dense calcified plaque and suspected greater than 70% stenosis of the bilateral cervical ICA also incompletely evaluated. Carotid Doppler, rule out stenosis Fasting a.m. lipid panel Hemoglobin A1c Permissive hypertension for next 24-48 hours, unless needed to control aggressively from cardiology perspective. Continue Eliquis 5 mg twice daily. Patient also given aspirin 325 mg x 1 dose yesterday. Neuro checks every 2 hours. Patient very short of breath. Will check ABG. Pulmonary on board. Telemetry monitoring rule out any arrhythmia. Cardiology on board. PT, OT, speech therapy DVT prophylaxis: Patient on Eliquis Other medical management as per IM and other specialties on board. Neurology will continue to follow. Thank you for the consult.
[2024-04-26 12:32] LABS: ABG Base Excess -5.7 mmol/L; ABG HCO3 16 mmol/L (21-25); ABG PCO2 23 mmHg (35-45); ABG PH 7.46 (7.35-7.45); ABG PO2 82 mmHg (83-108); ABG TCO2 17 mmol/L (19-24); Allen Test Performed? Yes
[2024-04-26] MEDS ORDERED: METOPROLOL SUCCINATE (ER) 50 MG TAB.ER.24H PO SCH (13:00)
--- NOTE | 2024-04-26 13:43 | P.PN ---
Subjective HISTORY OF PRESENT ILLNESS: This is a 69-year-old female patient of Dr. Arnol Grover with past medical history of coronary artery disease status post bypass surgery, ischemic cardiomyopathy, diabetes, hypertension, dyslipidemia, COPD, remote history of tobacco use. She has a history of large thoracic aortic aneurysm measuring 7.5 x 5.9 cm with int ramural thrombus. She was evaluated at [facility] and apparently was not a candidate for surgery or endovascular treatment. We have been asked to evaluate the patient for A-fib with RVR. Patient states that she was developed heartburn on Wednesday and also yesterday she developed significant shortness of breath. She states she had a very bad day yesterday. Patient states she felt like her whole body was closing in on her. Patient was found to be in atrial fibrillation with RVR. Telemetry appears to be atrial flutter with 2-1 rate. Heart rate is jumping between 90 and 140. She was started on Cardizem drip. Blood pressure 102/66, heart rate 134, pulse ox 97% on 2 L nasal cannula. Patient is seen today in the emergency center waiting for bed on the cardiac stepdown unit. -EKG: Atrial flutter with RVR 142 bpm -Chest x-ray: Chest x-ray reveals no acute process. Cardiomegaly with post CABG changes. -Laboratory studies: WBC 5.7, hemoglobin 1.9, INR 1.4, BUN 18 creatinine 0.77, potassium 3.1. Troponin negative x 3. proBNP 5720. Cepheid viral panel not detected. -Home cardiac medications: Eliquis 5 mg twice daily, atorvastatin 20 mg daily, Lasix 80 mg in the morning 40 mg at 6 PM, losartan 25 mg daily, metoprolol succinate 25 mg daily -Echocardiogram performed 02/21/2024 reveals EF of 15 to 20%, moderate to severe mitral regurgitation, mild to moderate tricuspid regurgitation. 04/26/2024 Patient examined this morning to bedside. Patient was transferred out of the intensive care unit yesterday to 3 S. Yesterday evening there was a code stroke called on the patient due to decreased responsiveness. Patient is awake and communicating this morning. Patient converted to sinus mechanism this morning and is bradycardic with a heart rate in the 40s60s. PHYSICAL EXAM: VITAL SIGNS: Reviewed. GENERAL: Well-developed in no acute distress. NECK: Supple. No JVD or thyromegaly LUNGS: Respirations even and unlabored. Lungs essentially clear to auscultation bilaterally. HEART: Irregular rate and rhythm. S1 and S2 heard. EXTREMITIES: Normal range of motion. No clubbing or cyanosis. Peripheral pulses intact. No lower extremity edema ASSESSMENT: Paroxysmal atrial fibrillation with RVR, currently sinus bradycardia with heart rates 40s60s Ischemic cardiomyopathy, EF 15 to 20% with LifeVest which patient was noncompliant History of coronary artery disease status post CABG Thoracic aortic aneurysm patient not a candidate for surgery or endovascular pr ocedure determined by [facility] Hyperlipidemia Moderate to severe mitral regurgitation and mild to moderate tricuspid regurgitation Chronic heart failure with reduced EF, currently euvolemic PLAN: Decrease amiodarone to 200 mg daily Decrease metoprolol succinate to 50 mg daily Continue additional cardiac medications including Eliquis and Lipitor Continue telemetry monitoring Further recommendations pending patient course Nurse practitioner note has been reviewed by physician. Signing provider agrees with the documented findings, assessment, and plan of care documented by PEDIATRIC NURSE PRACTITIONER as a scribe. Objective - Vital Signs Vital signs: Vital Signs Temp 97.2 F L 04/26/24 11:34 Pulse 108 H 04/26/24 12:00 Resp 25 H 04/26/24 11:34 BP 104/72 04/26/24 11:34 Pulse Ox 93 L 04/26/24 08:00 FiO2 50 04/26/24 13:29 Intake & Output 04/25/24 04/26/24 04/26/24 18:59 06:59 18:59 Intake Total 180 Output Total 300 Balance -120 Weight 78.5 kg Intake: Oral 180 Output: Urine 300 Other: Voiding Method Bedside Commode Incontinent External Catheter # Voids 1 1 - Labs CBC & Chem 7: 04/26/24 06:06 04/26/24 06:06 Labs: Abnormal Lab Results - Last 24 Hours (Table) 04/25/24 04/25/24 04/25/24 Range/Units 20:06 20:33 20:33 MCHC (31.0-37.0) g/dL RDW 17.5 H (11.5-15.5) % PT 19.9 H (10.0-12.5) sec INR 2.0 H (<1.2) ABG pH (7.35-7.45) ABG pCO2 (35-45) mmHg ABG pO2 (83-108) mmHg ABG HCO3 (21-25) mmol/L ABG Total CO2 (19-24) mmol/L Sodium (137-145) mmol/L Potassium (3.5-5.1) mmol/L Carbon Dioxide (22-30) mmol/L BUN (7-17) mg/dL Creatinine (0.52-1.04) mg/dL Glucose (74-99) mg/dL POC Glucose (mg/dL) 206 H (70-110) mg/dL Total Bilirubin (0.2-1.3) mg/dL AST (14-36) U/L ALT (4-34) U/L 04/25/24 04/26/24 04/26/24 Range/Units 20:33 06:06 06:06 MCHC 30.5 L (31.0-37.0) g/dL RDW 17.6 H (11.5-15.5) % PT (10.0-12.5) sec INR (<1.2) ABG pH (7.35-7.45) ABG pCO2 (35-45) mmHg ABG pO2 (83-108) mmHg ABG HCO3 (21-25) mmol/L ABG Total CO2 (19-24) mmol/L Sodium 135 L (137-145) mmol/L Potassium 5.5 H (3.5-5.1) mmol/L Carbon Dioxide 19 L (22-30) mmol/L BUN 60 H 64 H (7-17) mg/dL Creatinine 1.52 H 1.83 H (0.52-1.04) mg/dL Glucose 185 H 104 H (74-99) mg/dL POC Glucose (mg/dL) (70-110) mg/dL Total Bilirubin 1.6 H (0.2-1.3) mg/dL AST 37 H (14-36) U/L ALT 35 H 43 H (4-34) U/L 04/26/24 Range/Units 12:27 MCHC (31.0-37.0) g/dL RDW (11.5-15.5) % PT (10.0-12.5) sec INR (<1.2) ABG pH 7.46 H (7.35-7.45) ABG pCO2 23 L (35-45) mmHg ABG pO2 82 L (83-108) mmHg ABG HCO3 16 L (21-25) mmol/L ABG Total CO2 17 L (19-24) mmol/L Sodium (137-145) mmol/L Potassium (3.5-5.1) mmol/L Carbon Dioxide (22-30) mmol/L BUN (7-17) mg/dL Creatinine (0.52-1.04) mg/dL Glucose (74-99) mg/dL POC Glucose (mg/dL) (70-110) mg/dL Total Bilirubin (0.2-1.3) mg/dL AST (14-36) U/L ALT (4-34) U/L
--- NOTE | 2024-04-26 14:34 | US ---
EXAMINATION TYPE: US carotid duplex BILAT DATE OF EXAM: 04/26/2024 COMPARISON: CTA: 04/25/24 CLINICAL INDICATION: Female, 69 years old with history of Stroke/TIA, carotid stenosis on CTA; stenos is Additional History: I65.- Occlusion/stenosis of specified precerebral artery, specified laterality TECHNIQUE: Grayscale, color Doppler and spectral Doppler evaluation of the bilateral carotid systems and vertebral arteries. Indirect Doppler criteria was utilized. FINDINGS: Extremely limited exam due to pt uncooperation and severe plaque build up EXAM MEASUREMENTS: RIGHT: Peak Systolic Velocity (PSV) cm/sec ----- Right CCA: 26.6 ----- Right ICA: 84.9 ----- Right ECA: 106.9 ICA/CCA ratio: 3.2 RIGHT: End Diastole cm/sec ----- Right CCA: 6.9 ----- Right ICA: 29.2 ----- Right ECA: 7.2 LEFT: Peak Systolic Velocity (PSV) cm/sec ----- Left CCA: 36.5 ----- Left ICA: 101.7 ----- Left ECA: 67.7 ICA/CCA ratio: 2.8 LEFT: End Diastole cm/sec ----- Left CCA: 6.9 ----- Left ICA: 20.2 ----- Left ECA: 4.9 VERTEBRALS (direction of flow): Right Vertebral: not seen Left Vertebral: not seen Rhythm: normal SENIOR DESIGNER/ART DIRECTOR NOTES: severe amount of plaque seen throughout bilateral CCA's, bulbs, and ICA's Color Doppler imaging shows patency with blood flow throughout the carotid artery. Spectral waveforms are within normal limits. IMPRESSION: No evidence for hemodynamically significant stenosis. Criteria for Assigning % of Stenosis / Diameter reduction (Estimation based on the indirect measurements of the internal carotid artery velocities (ICA PSV). 1. Normal (no stenosis)=ICA PSV < 125 cm/s: ratio < 2.0: ICA EDV<40 cm/s. 2. Less than 50% stenosis=ICA PSV < 125 cm/s: ratio < 2.0: ICA EDV<40 cm/s. 3. 50 to 69% stenosis=ICA PSV of 125 to 230 cm/s: ration 2.0 ? 4.0: ICA EDV 40-100 cm/s. 4. Greater than 70% stenosis to near occlusion= ICA PSV > 230 cm/s: ratio > 4.0: ICA EDV > 100 cm/s. 5. Near occlusion= ICA PSV velocities may be low or undetectable: variable ratio and ICA EDV. 6. Total occlusion=unable to detect flow. [facility], , 04/26/2024 2:31 PM
--- NOTE | 2024-04-26 16:59 | P.PN ---
Subjective Progress Note Date: 04/26/24 Principal diagnosis: Acute hypoxic respiratory failure secondary to COPD exacerbation, chronic systolic congestive heart failure with LV dysfunction, and atrial fibrillation with RVR. Patient is a 69-year-old female with past medical history significant for atrial fibrillation, hypertension, hyperlipidemia, coronary artery disease with previous CABG, ischemic cardiomyopathy with ejection fraction 15 to 20%, thoracic aortic aneurysm, former tobacco smoker, and asthma/COPD. Presents to the emergency department last night with a chief complaint of shortness of breath that worsened yesterday. Workup in the emergency department found patient to be in atrial fibrillation with rapid ventricular rate. Rate up to 140s bpm. She was started on Cardizem infusion. Chest x-ray showing cardiomegaly with interstitial prominence. NT proBNP was elevated at 5720. CBC unremarkable for leukocytosis, WBC count 5.7, hemoglobin 11.9, platelets 160. CMP: Sodium 143, potassium 3.1, chloride 110, serum bicarb 21, BUN 18, creatinine 0.77, glucose 147. Lactic 1.7. LFTs not elevated. Troponin 0.013. NT proBNP 5720. Recent available echocardiogram from February, showing severe impairment of left ventricular systolic function with an ejection fraction of 15 to 20%. Also, m oderate to severe mitral regurgitation along with mild to moderate tricuspid regurgitation. Previously had LifeVest, which reportedly shocked her twice. She stopped wearing it, and sent it back approximately 1 month ago. Patient currently being evaluated in the emergency department. On 2L nasal cannula without distress. Denies home O2 use. Spo2 reading 92% on bedside monitor. Heart rhythm remains in A.fib with RVR. Heart rate 100-120 bpm. Cardizem infusing at 5mg/hr. States that she was "sick" last Wednesday. Having shortness of breath with associated cough with occasional white phlegm production. Denies any fevers or chills. Denies nausea or vomiting or diarrhea. Denies sick contacts. Lives with her daughter. Does have history of asthma/COPD. Former tobacco smoker, quit 3 years ago. She is unsure of her inhalers, but does have an as needed albuterol inhaler. Tried using her rescue inhaler without much relief. She felt that her "heart was acting up". Endorses palpitations. Denies any chest pain, orthopnea, lower extremity swelling, lightheadedness or syncopal events. Denies missing any doses of Lasix. Is chronically anticoagulated on Eliquis. Most recent vital signs: Afebrile, heart rate 91 bpm, blood pressure 111/75 mmHg, nontachypneic, SpO2 reading 94% on 2 L/min nasal cannula. On 04/21/2024, the patient is being seen in follow-up in the intensive care unit. Noted, earlier this morning, the patient encountered some hypotension. Based on that, the patient got transferred to the ICU. She was given to 50 cc of bolus of normal saline and currently she is normotensive. She is on 3 L of oxygen by nasal cannula. Denies having any chest pain. Denies having any s ignificant shortness of breath. She is still tachycardic and she remains in atrial fibrillation. Pulse ox is in the order of 91% on 2 L of oxygen by nasal cannula. The patient is currently on anticoagulation with Eliquis 5 mg p.o. twice a day. The patient remains on amiodarone 2 mg p.o. twice a day and metoprolol 50 mg daily. She is also on Aldactone. She is on bronchodilators. She is on a prednisone burst taper. 04/22/2024, the patient is being seen for a follow-up. The patient is awake and alert and denies any chest pain or shortness of breath. Nevertheless, the patient continues to be tachycardic. The patient may be in a flutter rhythm. A twelve-lead EKG was ordered accordingly. The patient is currently on metoprolol 100 mg p.o. daily. The patient is on centimeter of 5 mg p.o. twice a day. She is on anticoagulation with Eliquis 5 mg p.o. twice daily. Cardiology has been involved in the case. Normotensive. Producing adequate amount of urine output. The white cell count is at 10.6 with a hemoglobin of 12 and a platelet count of 187. Sodium is at 142, BUN 39 with a creatinine of 1.1. The patient is oxygenating adequately and the patient remains on 2 L of oxygen nasal cannula with a pulse ox of 95%. On 04/23/2024, the patient is being seen for a follow-up. The patient is currently on 2 L of oxygen by nasal cannula. She continues to be sinus tachycardia. She is on metoprolol 100 mg p.o. daily and the dose will be modified based on her ongoing tachycardia. The patient remains on amiodarone 4 mg p.o. twice a day and the patient is also on anticoagulation with Eliquis. She is on Lasix 40 mg p.o. twice a day and Aldactone 25 mg p.o. today. Calm and comfortable. No significant shortness of breath. No ventricular arrhythmias. WBC count is at 10.4 with a hemoglobin 12 and a platelet count of 189. Sodium is at 141, BUN 39 and the creatinine is 1.02. No other significant events overnight. Patient was evaluated today on 04/24/2024, remains in the ICU, on 3 L nasal cannula, O2 sats 97%, patient is hemodynamically stable, but she continues to have significant complaints mostly shortness of breath, intermittent cough, no chest pain, no fever, no chills, no hemoptysis. Electrolytes are normal BUN is 42 creatinine 1.32. WBC count is 10.4 hemoglobin is 12, chest x-ray yesterday showed cardiomegaly with post CABG changes, and known thoracic aortic aneurysm. No evidence of pulmonary edema. Patient remains on Eliquis, amiodarone 400 twice daily orally, farxiga, prednisone 40 mg daily Aldactone 25 mg daily she is on updrafts using albuterol/iPratropium bromide, Lasix 40 mg twice daily, and she is on Symbicort. Today I will try to transfer the patient out of the ICU to a monitored bed and selective. Patient was seen today on 04/25/2024, she is now on overflow in the ICU, remains on 2 L nasal cannula, does not seem to be in distress, for some reason her admitting physician ordered a VQ scan, patient is already on Eliquis, and her VQ scan is vague and was poor quality according to the radiologist. Nonetheless the patient is already on Eliquis, and probably she did not need the VQ scan in the first place. Her labs today were reviewed, her electrolytes are normal BUN is 55 creatinine 1.52. Patient denies being short of breath, remains on Eliquis amiodarone prednisone Aldactone and she is also on albuterol updrafts. With ipratropium bromide. Patient was seen today on 04/26/2024, pulmonary tinajero the patient seems to be in no distress, however she seems to be moaning and groaning and getting extremely anxious and agitated. Neurology is seeing the patient for a code stroke called on this patient yesterday and the patient was noted to have decreased level of responsiveness. Significant workup was done by that by neurology, and all the diagnostic workup was reviewed. The workup included carotid Doppler, angiography CT, brain CT, chest CT, I reviewed the CT of the chest, showed mostly emphysema, and a large saccular aortic aneurysm/descending thoracic aorta. Apparently has been present and has been noted on a previous CT of the chest in January 2024. Objective - Vital Signs Vital signs: Vital Signs Temp 97.3 F L 04/26/24 16:00 Pulse 64 04/26/24 16:33 Resp 24 04/26/24 16:00 BP 112/58 04/26/24 16:00 Pulse Ox 91 L 04/26/24 16:00 FiO2 50 04/26/24 13:29 Intake & Output 04/25/24 04/26/24 04/26/24 18:59 06:59 18:59 Intake Total 180 Output Total 300 Balance -120 Weight 78.5 kg Intake: Oral 180 Output: Urine 300 Other: Voiding Method Bedside Commode Incontinent External Catheter # Voids 1 1 - Exam GENERAL EXAM: 69-year-old -[place] female in no distress on 3 L nasal cannula HEAD: Normocephalic and atraumatic EYES: Normal reaction of pupils, equal size. NOSE: Clear with pink turbinates. THROAT: No erythema or exudates. NECK: No masses, no JVD. CHEST: No chest wall deformity. LUNGS: Minimal crackles at the bases, no rhonchi no wheezes CVS: Irregular rhythm, no S3 gallop, 2/6 systolic murmur throughout the preco rdium ABDOMEN: No hepatosplenomegaly, active bowel sounds, no guarding or rigidity. SKIN: No rashes CENTRAL NERVOUS SYSTEM: Patient is anxious agitated moaning and groaning EXTREMITIES: No clubbing edema or cyanosis - Labs CBC & Chem 7: 04/26/24 06:06 04/26/24 06:06 Labs: Abnormal Lab Results - Last 24 Hours (Table) 04/25/24 04/25/24 04/25/24 Range/Units 20:06 20:33 20:33 MCHC (31.0-37.0) g/dL RDW 17.5 H (11.5-15.5) % PT 19.9 H (10.0-12.5) sec INR 2.0 H (<1.2) ABG pH (7.35-7.45) ABG pCO2 (35-45) mmHg ABG pO2 (83-108) mmHg ABG HCO3 (21-25) mmol/L ABG Total CO2 (19-24) mmol/L Sodium (137-145) mmol/L Potassium (3.5-5.1) mmol/L Carbon Dioxide (22-30) mmol/L BUN (7-17) mg/dL Creatinine (0.52-1.04) mg/dL Glucose (74-99) mg/dL POC Glucose (mg/dL) 206 H (70-110) mg/dL Total Bilirubin (0.2-1.3) mg/dL AST (14-36) U/L ALT (4-34) U/L 04/25/24 04/26/24 04/26/24 Range/Units 20:33 06:06 06:06 MCHC 30.5 L (31.0-37.0) g/dL RDW 17.6 H (11.5-15.5) % PT (10.0-12.5) sec INR (<1.2) ABG pH (7.35-7.45) ABG pCO2 (35-45) mmHg ABG pO2 (83-108) mmHg ABG HCO3 (21-25) mmol/L ABG Total CO2 (19-24) mmol/L Sodium 135 L (137-145) mmol/L Potassium 5.5 H (3.5-5.1) mmol/L Carbon Dioxide 19 L (22-30) mmol/L BUN 60 H 64 H (7-17) mg/dL Creatinine 1.52 H 1.83 H (0.52-1.04) mg/dL Glucose 185 H 104 H (74-99) mg/dL POC Glucose (mg/dL) (70-110) mg/dL Total Bilirubin 1.6 H (0.2-1.3) mg/dL AST 37 H (14-36) U/L ALT 35 H 43 H (4-34) U/L 04/26/24 Range/Units 12:27 MCHC (31.0-37.0) g/dL RDW (11.5-15.5) % PT (10.0-12.5) sec INR (<1.2) ABG pH 7.46 H (7.35-7.45) ABG pCO2 23 L (35-45) mmHg ABG pO2 82 L (83-108) mmHg ABG HCO3 16 L (21-25) mmol/L ABG Total CO2 17 L (19-24) mmol/L Sodium (137-145) mmol/L Potassium (3.5-5.1) mmol/L Carbon Dioxide (22-30) mmol/L BUN (7-17) mg/dL Creatinine (0.52-1.04) mg/dL Glucose (74-99) mg/dL POC Glucose (mg/dL) (70-110) mg/dL Total Bilirubin (0.2-1.3) mg/dL AST (14-36) U/L ALT (4-34) U/L Assessment and Plan Assessment: Impression: Acute hypoxic respiratory failure secondary to chronic systolic congestive heart failure, COPD exacerbation, and atrial fibrillation with RVR. Benign essential hypertension Dyslipidemia Coronary arteriosclerosis and previous CABG Severe ischemic cardiomyopathy and LV dysfunction with ejection fraction of 15 to 20% Moderate mitral regurgitation History of descending thoracic aortic aneurysm, not a surgical candidate Ex-smoker Probable CVA/TIA Acute delirium Recommendation: Continue oxygen and titrate accordingly Continue amiodarone 400 twice daily Continue metoprolol 100 twice daily Continue diuretics/Lasix 40 mg twice daily Continue Eliquis Continue DuoNeb and Symbicort Continue prednisone and taper Will follow Time with Patient: Less than 30
[2024-04-26] MEDS: APIXABAN 5 MG TAB PO SCH (20:30)
--- NOTE | 2024-04-27 06:17 | P.PN ---
Subjective Progress Note Date: 04/26/24 61-year-old female came in with complaints of shortness of breath and hypoxemia believe any oxygen at home presently available. Patient has history of congestive heart failure with EF of around 15 to 20% and patient is also in atrial fibrillation patient is supposed to wear LifeVest has not been wearing it because it shocked her twice in the past. Patient does have a history of COPD as well quit smoking 2 years ago. Although patient has really no significant wheezing patient with elevated BNP of thousand does not have any significant pedal edema chest x-ray is consistent with pulmonary edema. There is no pneumonic infiltrate patient does complain of cough without any significant sputum production. Patient is on anticoagulation with Eliquis 04/21/2024 Patient evaluated today in follow up in the ICU. Patient has been transition to oral Lasix 40 mg twice daily. Remains on oral Eliquis. Patient has been taken off IV Cardizem continues on oral amiodarone. Additionally on oral metoprolol. Currently on oral prednisone. heart rate is better controlled at 110 and sinus tachycardia. Blood pressure marginal 83/49. Has not been started on pressor support at this time. 04/22/2024 Patient is evaluated in follow-up in the ICU. She is awake alert and oriented she remains in sinus tachycardia with heart rate of 120s. She continues on oral amiodarone oral Lasix. Chest x-ray today reveals no radiographic evidence for an acute process there is cardiomegaly with post CABG changes. There is redemonstration of a known thoracic aortic aneurysm. 04/23/2024 Patient remains in the intensive care unit and reports that she has been downgraded to the medical floor. She is awake alert and oriented resting in bed she states overall she is feeling improved from admission. Her heart rate remains in the 120s. She continues on oral amiodarone and oral metoprolol with doses were increased yesterday. She is also on oral Lasix twice daily. She has no acute complaints at this time. Labs today reveal a white blood cell count of 10.4, hemoglobin 12.0, sodium 141, potassium 4.1, BUN of 39 creatinine of 1.02 and a calcium level of 9.3. 04/24/2024 Patient is seen in follow-up today continues as a 3 S. hold in the ICU being followed by pulmonary and cardiology. Patient continues to report significant shortness of breath and working to breathe. Will add D-dimer and if positive may need further imaging. Patient is continued on Eliquis and will continue at this time. Medications being adjusted per cardiology and has been transition to oral Lasix. Continue breathing treatments and steroids at this time and will follow-up on repeat labs. Encouraged increase activity as tolerated and awaiting PT/OT therapy. 04/25/2024 Patient is seen in follow-up this morning continues to be in the ICU although is a downgrade once a bed is available. Patient being followed by cardiology as well as pulmonary and continues to report significant shortness of breath although reports feeling minimally improved from yesterday. D-dimer was positive and patient is maintained on Eliquis with no history of PE and will obtain a VQ scan his kidney functions are elevated and unable to perform CT. Hematology consulted as well as there was concerned of abnormal filling on VQ scan and unsure if patient is truly compliant with medications. Patient reportedly does not wear oxygen outpatient although continues to require oxygen and recommend to wean FiO2 as tolerated and will undergo testing for possible home O2. Patient continues to be dyspneic with conversation and with getting up and walking to the bathroom. Given patient's kidney functions are elevated will hold Lasix and also Aldactone at this time and follow-up on repeat labs. 04/26/2024 Patient is seen in follow-up today Has been downgraded out of the ICU and apparently shortly after patient arriving to this unit had some increased confusion and per nursing reports garbled difficulty speech and code stroke was activated. Neurology following and undergoing further workup. Recommend MRI although unsure if patient will be able to tolerate given her respiratory distress. Patient is extremely dyspneic on exam and reports to significant shortness of breath. Kidney functions are worsening with a creatinine of 1.8 and diuretics currently being held. CODE STATUS to be addressed as patient is currently full code Review of Systems Constitutional: Denied any fatigue denied any fever. Cardio vascular: denied any chest pain, palpitations Gastrointestinal: denied any nausea, vomiting, diarrhea Pulmonary: Reports continued significant shortness of breath and only minimally improved from yesterday Neurologic denied any new focal deficits All inpatient medications were reviewed and appropriate changes in these medicat ions as dictated in the interval history and assessment and plan. PHYSICAL EXAMINATION: GENERAL: The patient is alert and oriented x3, is in mild respiratory distress well developed, well nourished. Elderly appearing HEENT: Pupils are round and equally reacting to light. EOMI. No scleral icterus. No conjunctival pallor. Normocephalic, atraumatic. No pharyngeal erythema. No thyromegaly. CARDIOVASCULAR: S1 and S2 muffled PULMONARY: Diminished breath sounds bilaterally with some scattered faint expiratory wheezes and coarse rhonchi noted ABDOMEN: Soft, nontender, nondistended, normoactive bowel sounds. No palpable organomegaly. MUSCULOSKELETAL: No joint swelling or deformity. EXTREMITIES: No cyanosis, clubbing, or pedal edema. NEUROLOGICAL: Gross neurological examination did not reveal any focal deficits. SKIN: No rashes. Assessment: -Acute hypoxic respiratory failure, multifactorial secondary to congestive heart failure, chronic systolic dysfunction as well as COPD exacerbation -Atrial fibrillation with RVR; paroxysmal, maintained on Eliquis -Acute confusion, multifactorial possible metabolic encephalopathy with strong suspicion of hypoxia and undergoing TIA versus CVA workup -Elevated D-dimer with inconclusive V/Q awaiting addended note per radiologist, unable to perform CT given patient's kidney functions. Patient is maintained on Eliquis and denies any history of blood clots or PE -Hypertension -Hyperlipidemia -Coronary artery disease with CABG in the past -Descending thoracic aortic aneurysm history, not a surgical candidate as per [facility] -ischemic cardiomyopathy with an EF of 15 to 20% secondary to coronary disease, LifeVest outpatient although patient was noncompliant with this -Congestive heart failure chronic systolic function with acute exacerbation patient has ischemic cardiomyopathy -GI prophylaxis -DVT prophylaxis: Patient is on Eliquis -Full code Plan: Cardiology following closely and medications being adjusted. Patient has been transitioned to oral Lasix and Aldactone although will be holding for now as kidney functions are worsening Patient had some confusion and code stroke was called, CT head showed no acute intracranial process. Patient did have an elevated D-dimer and underwent CT chest without contrast with suboptimal study although shows cardiomegaly with trace right pleural effusion. Emphysema. Large either saccular aneurysm or contained rupture of the descending thoracic aorta measuring up to 9.4 x 6.4 cm including the excluded sac. Findings are incompletely evaluated given lack of IV contrast but appears similar to prior study 02/07/2024. 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 Patient scheduled to undergo MRI of the brain per neurology although she will likely not be able to tolerate given her respiratory status. Per neurology may repeat CT in a few days continue on aspirin and Sobia Discussed CODE STATUS with the patient and family member daughter as patient remains slightly confused and daughter reports she would like her to remain full code. Due to multiple complex medical issues, overall prognosis is extremely guarded at this time. The impression and plan of care has been dictated by Marion Castro, Nurse Practitioner as directed. Dr. Rolan MD I have performed a history and physical examination and medical decision making of this patient, discussed the same with the dictator, and agree with the dictators assessment and plan as written, documented as a scribe. Based on total visit time, I have performed more than 50% of this visit. Objective - Vital Signs Vital signs: Vital Signs Temp 97.2 F L 04/26/24 11:34 Pulse 51 L 04/26/24 14:00 Resp 25 H 04/26/24 14:00 BP 104/72 04/26/24 11:34 Pulse Ox 93 L 04/26/24 08:00 FiO2 50 04/26/24 13:29 Intake & Output 04/25/24 04/26/24 04/26/24 18:59 06:59 18:59 Intake Total 180 Output Total 300 Balance -120 Weight 78.5 kg Intake: Oral 180 Output: Urine 300 Other: Voiding Method Bedside Commode Incontinent External Catheter # Voids 1 1 - Labs CBC & Chem 7: 04/26/24 06:06 04/26/24 06:06 Labs: Abnormal Lab Results - Last 24 Hours (Table) 04/25/24 04/25/24 04/25/24 Range/Units 20:06 20:33 20:33 MCHC (31.0-37.0) g/dL RDW 17.5 H (11.5-15.5) % PT 19.9 H (10.0-12.5) sec INR 2.0 H (<1.2) ABG pH (7.35-7.45) ABG pCO2 (35-45) mmHg ABG pO2 (83-108) mmHg ABG HCO3 (21-25) mmol/L ABG Total CO2 (19-24) mmol/L Sodium (137-145) mmol/L Potassium (3.5-5.1) mmol/L Carbon Dioxide (22-30) mmol/L BUN (7-17) mg/dL Creatinine (0.52-1.04) mg/dL Glucose (74-99) mg/dL POC Glucose (mg/dL) 206 H (70-110) mg/dL Total Bilirubin (0.2-1.3) mg/dL AST (14-36) U/L ALT (4-34) U/L 04/25/24 04/26/24 04/26/24 Range/Units 20:33 06:06 06:06 MCHC 30.5 L (31.0-37.0) g/dL RDW 17.6 H (11.5-15.5) % PT (10.0-12.5) sec INR (<1.2) ABG pH (7.35-7.45) ABG pCO2 (35-45) mmHg ABG pO2 (83-108) mmHg ABG HCO3 (21-25) mmol/L ABG Total CO2 (19-24) mmol/L Sodium 135 L (137-145) mmol/L Potassium 5.5 H (3.5-5.1) mmol/L Carbon Dioxide 19 L (22-30) mmol/L BUN 60 H 64 H (7-17) mg/dL Creatinine 1.52 H 1.83 H (0.52-1.04) mg/dL Glucose 185 H 104 H (74-99) mg/dL POC Glucose (mg/dL) (70-110) mg/dL Total Bilirubin 1.6 H (0.2-1.3) mg/dL AST 37 H (14-36) U/L ALT 35 H 43 H (4-34) U/L 04/26/24 Range/Units 12:27 MCHC (31.0-37.0) g/dL RDW (11.5-15.5) % PT (10.0-12.5) sec INR (<1.2) ABG pH 7.46 H (7.35-7.45) ABG pCO2 23 L (35-45) mmHg ABG pO2 82 L (83-108) mmHg ABG HCO3 16 L (21-25) mmol/L ABG Total CO2 17 L (19-24) mmol/L Sodium (137-145) mmol/L Potassium (3.5-5.1) mmol/L Carbon Dioxide (22-30) mmol/L BUN (7-17) mg/dL Creatinine (0.52-1.04) mg/dL Glucose (74-99) mg/dL POC Glucose (mg/dL) (70-110) mg/dL Total Bilirubin (0.2-1.3) mg/dL AST (14-36) U/L ALT (4-34) U/L
[2024-04-27 07:52] LABS: African American GFR (CKD) 35 (>60 ml/min/1.73 sqM); Anion Gap 12 mmol/L; Blood Urea Nitrogen 81 mg/dL (7-17); Calcium 8.9 mg/dL (8.4-10.2); Carbon Dioxide 23 mmol/L (22-30); Chloride 105 mmol/L (98-107); Glucose 125 mg/dL (74-99); Magnesium 2.7 mg/dL (1.6-2.3); Non-African American GFR(CKD) 30 (>60 ml/min/1.73 sqM); Potassium 5.2 mmol/L (3.5-5.1); Sodium 140 mmol/L (137-145)
[2024-04-27] MEDS: METOPROLOL SUCCINATE (ER) 50 MG TAB.ER.24H PO SCH (09:17)
[2024-04-27] MEDS: AMIODARONE 200 MG TAB PO SCH (09:17)
[2024-04-27 11:03] LABS: Chol/HDL Ratio 3.07 Ratio; LDL Cholesterol,Calculated 67.3 mg/dL (0.0-131.0); VLDL Calculation 19.02 mg/dL (5.00-40.00)
--- NOTE | 2024-04-27 11:50 | P.PN ---
Subjective HISTORY OF PRESENT ILLNESS: This is a 69-year-old female patient of Dr. Arnol Grover with past medical history of coronary artery disease status post bypass surgery, ischemic cardiomyopathy, diabetes, hypertension, dyslipidemia, COPD, remote history of tobacco use. She has a history of large thoracic aortic aneurysm measuring 7.5 x 5.9 cm with int ramural thrombus. She was evaluated at [facility] and apparently was not a candidate for surgery or endovascular treatment. We have been asked to evaluate the patient for A-fib with RVR. Patient states that she was developed heartburn on Wednesday and also yesterday she developed significant shortness of breath. She states she had a very bad day yesterday. Patient states she felt like her whole body was closing in on her. Patient was found to be in atrial fibrillation with RVR. Telemetry appears to be atrial flutter with 2-1 rate. Heart rate is jumping between 90 and 140. She was started on Cardizem drip. Blood pressure 102/66, heart rate 134, pulse ox 97% on 2 L nasal cannula. Patient is seen today in the emergency center waiting for bed on the cardiac stepdown unit. -EKG: Atrial flutter with RVR 142 bpm -Chest x-ray: Chest x-ray reveals no acute process. Cardiomegaly with post CABG changes. -Laboratory studies: WBC 5.7, hemoglobin 1.9, INR 1.4, BUN 18 creatinine 0.77, potassium 3.1. Troponin negative x 3. proBNP 5720. Cepheid viral panel not detected. -Home cardiac medications: Eliquis 5 mg twice daily, atorvastatin 20 mg daily, Lasix 80 mg in the morning 40 mg at 6 PM, losartan 25 mg daily, metoprolol succinate 25 mg daily -Echocardiogram performed 02/21/2024 reveals EF of 15 to 20%, moderate to severe mitral regurgitation, mild to moderate tricuspid regurgitation. 04/26/2024 Patient examined this morning to bedside. Patient was transferred out of the intensive care unit yesterday to 3 S. Yesterday evening there was a code stroke called on the patient due to decreased responsiveness. Patient is awake and communicating this morning. Patient converted to sinus mechanism this morning and is bradycardic with a heart rate in the 40s60s. 04/27/2024 Patient examined this morning to bedside. Patient without complaints of chest pain or pressure. She denies shortness of breath. She is maintaining sinus mechanism with a heart rate in the 60s-70s. PHYSICAL EXAM: VITAL SIGNS: Reviewed. GENERAL: Well-developed in no acute distress. NECK: Supple. No JVD or thyromegaly LUNGS: Respirations even and unlabored. Lungs essentially clear to auscultation bilaterally. HEART: regular rate and rhythm. S1 and S2 heard. EXTREMITIES: Normal range of motion. No clubbing or cyanosis. Peripheral pulses intact. No lower extremity edema ASSESSMENT: Paroxysmal atrial fibrillation with RVR, currently sinus mechanism Ischemic cardiomyopathy, EF 15 to 20% with LifeVest which patient was noncompliant History of coronary artery disease status post CABG Thoracic aortic aneurysm patient not a candidate for surgery or endovascular procedure determined by [facility] Hyperlipidemia Moderate to severe mitral regurgitation and mild to moderate tricuspid regurgitation Chronic heart failure with reduced EF, currently euvolemic PLAN: Continue current dose of amiodarone and metoprolol succinate Continue additional cardiac medications including Eliquis and Lipitor Continue telemetry monitoring No further inpatient recommendations from cardiac standpoint We will sign off. Please reconsult if needed. Nurse practitioner note has been reviewed by physician. Signing provider agrees with the documented findings, assessment, and plan of care documented by SAFEKEEPING CLERK as a scribe. Objective - Vital Signs Vital signs: Vital Signs Temp 97.4 F L 04/27/24 08:15 Pulse 72 04/27/24 11:42 Resp 21 04/27/24 08:15 BP 95/62 04/27/24 08:15 Pulse Ox 97 04/27/24 08:15 FiO2 50 04/26/24 13:29 Intake & Output 04/26/24 04/27/24 04/27/24 18:59 06:59 18:59 Intake Total 180 Output Total 0 Balance 0 180 Weight 76 kg Intake: Oral 180 Output: Stool 0 Other: Voiding Method External Catheter External Catheter # Voids 1 3 1 - Labs CBC & Chem 7: 04/26/24 06:06 04/27/24 06:31 Labs: Abnormal Lab Results - Last 24 Hours (Table) 04/26/24 04/27/24 04/27/24 Range/Units 12:27 06:31 06:31 ABG pH 7.46 H (7.35-7.45) ABG pCO2 23 L (35-45) mmHg ABG pO2 82 L (83-108) mmHg ABG HCO3 16 L (21-25) mmol/L ABG Total CO2 17 L (19-24) mmol/L Potassium 5.2 H (3.5-5.1) mmol/L BUN 81 H (7-17) mg/dL Creatinine 1.71 H (0.52-1.04) mg/dL Glucose 125 H (74-99) mg/dL Hemoglobin A1c 7.1 H (<=6.0) % Magnesium 2.7 H (1.6-2.3) mg/dL
[2024-04-27] MEDS: methylPREDNISolone SOD SUCCI 40 MG/ML 1 ML VIAL IV SCH (13:05)
[2024-04-27 14:19] VITALS: BMI 27.8
--- NOTE | 2024-04-27 14:51 | P.PN ---
Subjective Progress Note Date: 04/27/24 Principal diagnosis: Acute hypoxic respiratory failure secondary to COPD exacerbation, chronic systolic congestive heart failure with LV dysfunction, and atrial fibrillation with RVR. Patient is a 69-year-old female with past medical history significant for atrial fibrillation, hypertension, hyperlipidemia, coronary artery disease with previous CABG, ischemic cardiomyopathy with ejection fraction 15 to 20%, thoracic aortic aneurysm, former tobacco smoker, and asthma/COPD. Presents to the emergency department last night with a chief complaint of shortness of breath that worsened yesterday. Workup in the emergency department found patient to be in atrial fibrillation with rapid ventricular rate. Rate up to 140s bpm. She was started on Cardizem infusion. Chest x-ray showing cardiomegaly with interstitial prominence. NT proBNP was elevated at 5720. CBC unremarkable for leukocytosis, WBC count 5.7, hemoglobin 11.9, platelets 160. CMP: Sodium 143, potassium 3.1, chloride 110, serum bicarb 21, BUN 18, creatinine 0.77, glucose 147. Lactic 1.7. LFTs not elevated. Troponin 0.013. NT proBNP 5720. Recent available echocardiogram from February, showing severe impairment of left ventricular systolic function with an ejection fraction of 15 to 20%. Also, m oderate to severe mitral regurgitation along with mild to moderate tricuspid regurgitation. Previously had LifeVest, which reportedly shocked her twice. She stopped wearing it, and sent it back approximately 1 month ago. Patient currently being evaluated in the emergency department. On 2L nasal cannula without distress. Denies home O2 use. Spo2 reading 92% on bedside monitor. Heart rhythm remains in A.fib with RVR. Heart rate 100-120 bpm. Cardizem infusing at 5mg/hr. States that she was "sick" last Wednesday. Having shortness of breath with associated cough with occasional white phlegm production. Denies any fevers or chills. Denies nausea or vomiting or diarrhea. Denies sick contacts. Lives with her daughter. Does have history of asthma/COPD. Former tobacco smoker, quit 3 years ago. She is unsure of her inhalers, but does have an as needed albuterol inhaler. Tried using her rescue inhaler without much relief. She felt that her "heart was acting up". Endorses palpitations. Denies any chest pain, orthopnea, lower extremity swelling, lightheadedness or syncopal events. Denies missing any doses of Lasix. Is chronically anticoagulated on Eliquis. Most recent vital signs: Afebrile, heart rate 91 bpm, blood pressure 111/75 mmHg, nontachypneic, SpO2 reading 94% on 2 L/min nasal cannula. On 04/21/2024, the patient is being seen in follow-up in the intensive care unit. Noted, earlier this morning, the patient encountered some hypotension. Based on that, the patient got transferred to the ICU. She was given to 50 cc of bolus of normal saline and currently she is normotensive. She is on 3 L of oxygen by nasal cannula. Denies having any chest pain. Denies having any s ignificant shortness of breath. She is still tachycardic and she remains in atrial fibrillation. Pulse ox is in the order of 91% on 2 L of oxygen by nasal cannula. The patient is currently on anticoagulation with Eliquis 5 mg p.o. twice a day. The patient remains on amiodarone 2 mg p.o. twice a day and metoprolol 50 mg daily. She is also on Aldactone. She is on bronchodilators. She is on a prednisone burst taper. 04/22/2024, the patient is being seen for a follow-up. The patient is awake and alert and denies any chest pain or shortness of breath. Nevertheless, the patient continues to be tachycardic. The patient may be in a flutter rhythm. A twelve-lead EKG was ordered accordingly. The patient is currently on metoprolol 100 mg p.o. daily. The patient is on centimeter of 5 mg p.o. twice a day. She is on anticoagulation with Eliquis 5 mg p.o. twice daily. Cardiology has been involved in the case. Normotensive. Producing adequate amount of urine output. The white cell count is at 10.6 with a hemoglobin of 12 and a platelet count of 187. Sodium is at 142, BUN 39 with a creatinine of 1.1. The patient is oxygenating adequately and the patient remains on 2 L of oxygen nasal cannula with a pulse ox of 95%. On 04/23/2024, the patient is being seen for a follow-up. The patient is currently on 2 L of oxygen by nasal cannula. She continues to be sinus tachycardia. She is on metoprolol 100 mg p.o. daily and the dose will be modified based on her ongoing tachycardia. The patient remains on amiodarone 4 mg p.o. twice a day and the patient is also on anticoagulation with Eliquis. She is on Lasix 40 mg p.o. twice a day and Aldactone 25 mg p.o. today. Calm and comfortable. No significant shortness of breath. No ventricular arrhythmias. WBC count is at 10.4 with a hemoglobin 12 and a platelet count of 189. Sodium is at 141, BUN 39 and the creatinine is 1.02. No other significant events overnight. Patient was evaluated today on 04/24/2024, remains in the ICU, on 3 L nasal cannula, O2 sats 97%, patient is hemodynamically stable, but she continues to have significant complaints mostly shortness of breath, intermittent cough, no chest pain, no fever, no chills, no hemoptysis. Electrolytes are normal BUN is 42 creatinine 1.32. WBC count is 10.4 hemoglobin is 12, chest x-ray yesterday showed cardiomegaly with post CABG changes, and known thoracic aortic aneurysm. No evidence of pulmonary edema. Patient remains on Eliquis, amiodarone 400 twice daily orally, farxiga, prednisone 40 mg daily Aldactone 25 mg daily she is on updrafts using albuterol/iPratropium bromide, Lasix 40 mg twice daily, and she is on Symbicort. Today I will try to transfer the patient out of the ICU to a monitored bed and selective. Patient was seen today on 04/25/2024, she is now on overflow in the ICU, remains on 2 L nasal cannula, does not seem to be in distress, for some reason her admitting physician ordered a VQ scan, patient is already on Eliquis, and her VQ scan is vague and was poor quality according to the radiologist. Nonetheless the patient is already on Eliquis, and probably she did not need the VQ scan in the first place. Her labs today were reviewed, her electrolytes are normal BUN is 55 creatinine 1.52. Patient denies being short of breath, remains on Eliquis amiodarone prednisone Aldactone and she is also on albuterol updrafts. With ipratropium bromide. Patient was seen today on 04/26/2024, pulmonary tinajero the patient seems to be in no distress, however she seems to be moaning and groaning and getting extremely anxious and agitated. Neurology is seeing the patient for a code stroke called on this patient yesterday and the patient was noted to have decreased level of responsiveness. Significant workup was done by that by neurology, and all the diagnostic workup was reviewed. The workup included carotid Doppler, angiography CT, brain CT, chest CT, I reviewed the CT of the chest, showed mostly emphysema, and a large saccular aortic aneurysm/descending thoracic aorta. Apparently has been present and has been noted on a previous CT of the chest in January 2024. Patient was seen today on 04/27/2024, patient is relatively asymptomatic, not complaining of any shortness of breath, not complaining of any chest pain, she seems to be much Colmer today, relatively asymptomatic. Basic metabolic profile was noted to be relatively normal. ABG yesterday was reviewed with a pO2 of 82 pCO2 23 pH of 7.46. Objective - Vital Signs Vital signs: Vital Signs Temp 98.1 F 04/27/24 11:45 Pulse 82 04/27/24 14:00 Resp 21 04/27/24 14:00 BP 90/70 04/27/24 11:45 Pulse Ox 99 04/27/24 11:45 FiO2 50 04/26/24 13:29 Intake & Output 04/26/24 04/27/24 04/27/24 18:59 06:59 18:59 Intake Total 360 Output Total 0 0 Balance 0 360 Weight 76 kg 76 kg Intake: Oral 360 Output: Stool 0 0 Other: Voiding Method External Catheter External Catheter External Catheter # Voids 1 3 1 - Exam GENERAL EXAM: 69-year-old -Citizen Of [place] female in no distress on 2 L nasal cannula, O2 saturation 99% HEAD: Normocephalic and atraumatic EYES: Normal reaction of pupils, equal size. NOSE: Clear with pink turbinates. THROAT: No erythema or exudates. NECK: No masses, no JVD. CHEST: No chest wall deformity. LUNGS: Minimal crackles at the bases, no rhonchi no wheezes CVS: Irregular rhythm, no S3 gallop, 2/6 systolic murmur throughout the precordium ABDOMEN: No hepatosplenomegaly, active bowel sounds, no guarding or rigidity. SKIN: No rashes CENTRAL NERVOUS SYSTEM: Colmer today, seems to be alert and oriented x 3 EXTREMITIES: No clubbing edema or cyanosis - Labs CBC & Chem 7: 04/26/24 06:06 04/27/24 06:31 Labs: Abnormal Lab Results - Last 24 Hours (Table) 04/27/24 04/27/24 Range/Units 06:31 06:31 Potassium 5.2 H (3.5-5.1) mmol/L BUN 81 H (7-17) mg/dL Creatinine 1.71 H (0.52-1.04) mg/dL Glucose 125 H (74-99) mg/dL Hemoglobin A1c 7.1 H (<=6.0) % Magnesium 2.7 H (1.6-2.3) mg/dL Assessment and Plan Assessment: Impression: Acute hypoxic respiratory failure secondary to chronic systolic congestive heart failure, COPD exacerbation, and atrial fibrillation with RVR. Benign essential hypertension Dyslipidemia Coronary arteriosclerosis and previous CABG Severe ischemic cardiomyopathy and LV dysfunction with ejection fraction of 15 to 20% Moderate mitral regurgitation History of descending thoracic aortic aneurysm, not a surgical candidate Ex-smoker Probable CVA/TIA Acute delirium Recommendation: Continue oxygen and titrate accordingly Continue amiodarone as per cardiology on the case. Continue metoprolol 100 twice daily Continue diuretics/Lasix 40 mg twice daily Continue Eliquis Continue DuoNeb and Symbicort Placed on Medrol Dosepak and discontinue methylprednisolone Will follow Time with Patient: Less than 30
--- NOTE | 2024-04-27 15:04 | P.CONS ---
History of Present Illness - Reason for Consult Consult date: 04/26/24 PE on eliquis Requesting physician: Marion Castro - Chief Complaint SOB - History of Present Illness Patient is a pleasantly confused 69-year-old female we have been asked to see because of concerning findings on a VQ scan on admission to the hospital. Patient was admitted a week ago with complaints of difficulty breathing and shortness of breath. She has a history of atrial fibrillation and is on Eliquis. She also has an extensive history of coronary artery disease status post CABG, ischemic cardiomyopathy, thoracic aortic aneurysm. She had VQ scan i nitially reporting somewhat nondiagnostic exam due to clumping of radiotracer on ventilation view. Defects identified to suggest pulmonary embolus. This was eventually addended and it read somewhat nondiagnostic exam due to clumping of radiotracer on ventilation view no mismatch defects identified to suggest pulmonary embolism. Did end up having bilateral lower extremity Dopplers done to rule out DVT, both legs were negative. Ultimately the patient went on to have a CT of the chest without contrast no evidence for mass. Patient did have a brain CT because of aphasia and unresponsiveness. No acute intracranial process appreciated. Patient denied any known history of blood clots, her br eathing is better since admission, she denied any fevers, no other acute complaints. She denied any bleeding on anticoagulation. Review of Systems 10 point ROS is neg except as stated in HPI Past Medical History Past Medical History: Atrial Fibrillation, Asthma, Chest Pain / Angina History of Any Multi-Drug Resistant Organisms: None Reported Past Surgical History: No Surgical Hx Reported Additional Past Surgical History / Comment(s): "open heart surgery" Past Anesthesia/Blood Transfusion Reactions: No Reported Reaction Past Psychological History: No Psychological Hx Reported Smoking Status: Former smoker Past Alcohol Use History: None Reported Past Drug Use History: None Reported - Past Family History Father Family Medical History: No Reported History Medications and Allergies Home Medications Medication Instructions Recorded Confirmed Type Apixaban [Eliquis] 5 mg PO BID 01/16/24 04/20/24 History Nitroglycerin Sl Tabs [Nitrostat] 0.4 mg SUBLINGUAL Q5M PRN 01/16/24 04/20/24 History Budesonide-Formot 160-4.5 Mcg 2 puff INHALATION RT-BID 02/06/24 04/20/24 History [Symbicort 160-4.5 Mcg Inhaler] Losartan [Cozaar] 25 mg PO DAILY 14 Days #14 tab 02/10/24 04/20/24 Rx Furosemide [Lasix] 80 mg PO DAILY 30 Days #30 tab 02/23/24 04/20/24 Rx Atorvastatin [Lipitor] 20 mg PO DAILY 04/20/24 04/20/24 History Furosemide [Lasix] 40 mg PO DAILY@1800 04/20/24 04/20/24 History Metoprolol Succinate [Metoprolol 25 mg PO DAILY 04/20/24 04/20/24 History Succinate ER] Allergies Allergy/AdvReac Type Severity Reaction Status Date / Time adhesive Allergy Rash/Hives Verified 04/20/24 10:17 Physical Exam Vitals: Vital Signs Temp Pulse Pulse Pulse Resp BP BP 04/26/24 14:00 51 L 25 H 04/26/24 13:29 04/26/24 12:00 108 H 04/26/24 11:34 97.2 F L 51 L 99 25 H 104/72 04/26/24 09:04 104 H 04/26/24 08:45 100 04/26/24 08:00 97.6 F 98 22 95/65 04/26/24 04:05 97.1 F L 70 24 86/67 04/25/24 23:10 97.5 F L 98 26 H 97/54 04/25/24 19:42 97.4 F L 100 24 107/68 Pulse Ox FiO2 04/26/24 14:00 04/26/24 13:29 50 04/26/24 12:00 04/26/24 11:34 04/26/24 09:04 04/26/24 08:45 04/26/24 08:00 93 L 04/26/24 04:05 97 04/25/24 23:10 99 04/25/24 19:42 98 Intake and Output 04/26/24 04/26/24 04/26/24 06:59 14:59 22:59 Other: Voiding Method Incontinent External Catheter # Voids 1 Weight 78.5 kg - Constitutional General appearance: average body habitus, cooperative, no acute distress - EENT Eyes: anicteric sclerae, EOMI ENT: hearing grossly normal - Neck Neck: no lymphadenopathy - Respiratory Respiratory: bilateral: CTA - Cardiovascular Rhythm: regular leg Peripheral Edema: bilateral: None - Gastrointestinal General gastrointestinal: soft - Integumentary Integumentary: normal - Neurologic Neurologic: CNII-XII intact - Musculoskeletal Musculoskeletal: strength equal bilaterally - Psychiatric Psychiatric: A&O x's 3, appropriate affect, intact judgment & insight Results CBC & Chem 7: 04/26/24 06:06 04/27/24 06:31 Labs: Abnormal Lab Results - Last 24 Hours (Table) 04/25/24 04/25/24 04/25/24 Range/Units 20:06 20:33 20:33 MCHC (31.0-37.0) g/dL RDW 17.5 H (11.5-15.5) % PT 19.9 H (10.0-12.5) sec INR 2.0 H (<1.2) ABG pH (7.35-7.45) ABG pCO2 (35-45) mmHg ABG pO2 (83-108) mmHg ABG HCO3 (21-25) mmol/L ABG Total CO2 (19-24) mmol/L Sodium (137-145) mmol/L Potassium (3.5-5.1) mmol/L Carbon Dioxide (22-30) mmol/L BUN (7-17) mg/dL Creatinine (0.52-1.04) mg/dL Glucose (74-99) mg/dL POC Glucose (mg/dL) 206 H (70-110) mg/dL Total Bilirubin (0.2-1.3) mg/dL AST (14-36) U/L ALT (4-34) U/L 04/25/24 04/26/24 04/26/24 Range/Units 20:33 06:06 06:06 MCHC 30.5 L (31.0-37.0) g/dL RDW 17.6 H (11.5-15.5) % PT (10.0-12.5) sec INR (<1.2) ABG pH (7.35-7.45) ABG pCO2 (35-45) mmHg ABG pO2 (83-108) mmHg ABG HCO3 (21-25) mmol/L ABG Total CO2 (19-24) mmol/L Sodium 135 L (137-145) mmol/L Potassium 5.5 H (3.5-5.1) mmol/L Carbon Dioxide 19 L (22-30) mmol/L BUN 60 H 64 H (7-17) mg/dL Creatinine 1.52 H 1.83 H (0.52-1.04) mg/dL Glucose 185 H 104 H (74-99) mg/dL POC Glucose (mg/dL) (70-110) mg/dL Total Bilirubin 1.6 H (0.2-1.3) mg/dL AST 37 H (14-36) U/L ALT 35 H 43 H (4-34) U/L 04/26/24 Range/Units 12:27 MCHC (31.0-37.0) g/dL RDW (11.5-15.5) % PT (10.0-12.5) sec INR (<1.2) ABG pH 7.46 H (7.35-7.45) ABG pCO2 23 L (35-45) mmHg ABG pO2 82 L (83-108) mmHg ABG HCO3 16 L (21-25) mmol/L ABG Total CO2 17 L (19-24) mmol/L Sodium (137-145) mmol/L Potassium (3.5-5.1) mmol/L Carbon Dioxide (22-30) mmol/L BUN (7-17) mg/dL Creatinine (0.52-1.04) mg/dL Glucose (74-99) mg/dL POC Glucose (mg/dL) (70-110) mg/dL Total Bilirubin (0.2-1.3) mg/dL AST (14-36) U/L ALT (4-34) U/L Comments: VQ report reviewed Chest x-ray: report reviewed CT scan - chest: report reviewed CT Scan - head: report reviewed Venous US: report reviewed Assessment and Plan Plan: Patient admitted with respiratory insufficiency -VQ scan done on the patient, initially the report stated findings concerning for possible PE. There was an addendum later added that there was no evidence of pulmonary embolism. -Bilateral lower extremity Dopplers were performed to rule out any DVT, both legs were negative -No evidence of PE or DVT. No other evidence to suggest VTE. Patient is not a failure of anticoagulation. -Anticoagulation recommendations per cardiology Doctor attests: I performed a history and physical examination of this patient, developed impression and plan of care. Discussed with dictator. I agree with dictators note, documented as a scribe.
[2024-04-27] MEDS: FOLIC ACID 1 MG TAB PO SCH (17:26)
[2024-04-27] MEDS: methylPREDNISolone 4 MG TAB TAPER PO SCH (17:26)
[2024-04-27] MEDS: MULTIVITAMINS, THERA 1 EACH TAB PO SCH (17:26)
[2024-04-27] MEDS: THIAMINE 100 MG TAB PO SCH (17:26)
[2024-04-27] MEDS: APIXABAN 2.5 MG TABLET PO SCH (20:05)
--- NOTE | 2024-04-28 06:21 | P.PN ---
Subjective Progress Note Date: 04/27/24 61-year-old female came in with complaints of shortness of breath and hypoxemia believe any oxygen at home presently available. Patient has history of congestive heart failure with EF of around 15 to 20% and patient is also in atrial fibrillation patient is supposed to wear LifeVest has not been wearing it because it shocked her twice in the past. Patient does have a history of COPD as well quit smoking 2 years ago. Although patient has really no significant wheezing patient with elevated BNP of thousand does not have any significant pedal edema chest x-ray is consistent with pulmonary edema. There is no pneumonic infiltrate patient does complain of cough without any significant sputum production. Patient is on anticoagulation with Eliquis 04/21/2024 Patient evaluated today in follow up in the ICU. Patient has been transition to oral Lasix 40 mg twice daily. Remains on oral Eliquis. Patient has been taken off IV Cardizem continues on oral amiodarone. Additionally on oral metoprolol. Currently on oral prednisone. heart rate is better controlled at 110 and sinus tachycardia. Blood pressure marginal 83/49. Has not been started on pressor support at this time. 04/22/2024 Patient is evaluated in follow-up in the ICU. She is awake alert and oriented she remains in sinus tachycardia with heart rate of 120s. She continues on oral amiodarone oral Lasix. Chest x-ray today reveals no radiographic evidence for an acute process there is cardiomegaly with post CABG changes. There is redemonstration of a known thoracic aortic aneurysm. 04/23/2024 Patient remains in the intensive care unit and reports that she has been downgraded to the medical floor. She is awake alert and oriented resting in bed she states overall she is feeling improved from admission. Her heart rate remains in the 120s. She continues on oral amiodarone and oral metoprolol with doses were increased yesterday. She is also on oral Lasix twice daily. She has no acute complaints at this time. Labs today reveal a white blood cell count of 10.4, hemoglobin 12.0, sodium 141, potassium 4.1, BUN of 39 creatinine of 1.02 and a calcium level of 9.3. 04/24/2024 Patient is seen in follow-up today continues as a 3 S. hold in the ICU being followed by pulmonary and cardiology. Patient continues to report significant shortness of breath and working to breathe. Will add D-dimer and if positive may need further imaging. Patient is continued on Eliquis and will continue at this time. Medications being adjusted per cardiology and has been transition to oral Lasix. Continue breathing treatments and steroids at this time and will follow-up on repeat labs. Encouraged increase activity as tolerated and awaiting PT/OT therapy. 04/25/2024 Patient is seen in follow-up this morning continues to be in the ICU although is a downgrade once a bed is available. Patient being followed by cardiology as well as pulmonary and continues to report significant shortness of breath although reports feeling minimally improved from yesterday. D-dimer was positive and patient is maintained on Eliquis with no history of PE and will obtain a VQ scan his kidney functions are elevated and unable to perform CT. Hematology consulted as well as there was concerned of abnormal filling on VQ scan and unsure if patient is truly compliant with medications. Patient reportedly does not wear oxygen outpatient although continues to require oxygen and recommend to wean FiO2 as tolerated and will undergo testing for possible home O2. Patient continues to be dyspneic with conversation and with getting up and walking to the bathroom. Given patient's kidney functions are elevated will hold Lasix and also Aldactone at this time and follow-up on repeat labs. 04/26/2024 Patient is seen in follow-up today Has been downgraded out of the ICU and apparently shortly after patient arriving to this unit had some increased confusion and per nursing reports garbled difficulty speech and code stroke was activated. Neurology following and undergoing further workup. Recommend MRI although unsure if patient will be able to tolerate given her respiratory distress. Patient is extremely dyspneic on exam and reports to significant shortness of breath. Kidney functions are worsening with a creatinine of 1.8 and diuretics currently being held. CODE STATUS to be addressed as patient is currently full code 04/27/2024 Patient is seen in follow-up today with no acute overnight issues noted. Patient mentation is baseline and appears more calm today asking when she can go home. Patient continues to be significantly short of breath and reports does not wear oxygen outpatient. Will need home O2 evaluation. Cardiology making adjustments to medications and have signed off. Pulmonary following as well and has transition to Medrol Dosepak and IV steroids have been discontinued. Patient continues to have elevated kidney functions and recommend holding Farxiga at this time. Dosing adjusted on Eliquis due to kidney functions. Patient is afebrile denies any worsening shortness of breath or chest pains. Will discuss with case management and family regarding discharge planning. PT/OT therapy to evaluate although patient is refusing rehab. Review of Systems Constitutional: Denied any fatigue denied any fever. Cardio vascular: denied any chest pain, palpitations Gastrointestinal: denied any nausea, vomiting, diarrhea Pulmonary: Reports continued significant shortness of breath although feels improved from yesterday Neurologic denied any new focal deficits All inpatient medications were reviewed and appropriate changes in these medications as dictated in the interval history and assessment and plan. PHYSICAL EXAMINATION: GENERAL: The patient is alert and oriented x3, much more calm today, well nourished. Elderly appearing HEENT: Pupils are round and equally reacting to light. EOMI. No scleral icterus. No conjunctival pallor. Normocephalic, atraumatic. No pharyngeal erythema. No thyromegaly. CARDIOVASCULAR: S1 and S2 muffled PULMONARY: Diminished breath sounds bilaterally with some scattered faint expiratory wheezes and coarse rhonchi noted ABDOMEN: Soft, nontender, nondistended, normoactive bowel sounds. No palpable organomegaly. MUSCULOSKELETAL: No joint swelling or deformity. EXTREMITIES: No cyanosis, clubbing, or pedal edema. NEUROLOGICAL: Gross neurological examination did not reveal any focal deficits. SKIN: No rashes. Assessment: -Acute hypoxic respiratory failure, multifactorial secondary to congestive heart failure, chronic systolic dysfunction as well as COPD exacerbation -Atrial fibrillation with RVR; paroxysmal, maintained on Eliquis -Acute confusion, multifactorial possible metabolic encephalopathy with strong suspicion of hypoxia and undergoing TIA versus CVA workup -Elevated D-dimer with inconclusive V/Q awaiting addended note per radiologist, unable to perform CT given patient's kidney functions. Patient is maintained on Eliquis and denies any history of blood clots or PE. Evaluated by hematology and felt unlikely for PE. -Hypertension -Hyperlipidemia -Coronary artery disease with CABG in the past -Descending thoracic aortic aneurysm history, not a surgical candidate as per [facility] -ischemic cardiomyopathy with an EF of 15 to 20% secondary to coronary disease, LifeVest outpatient although patient was noncompliant with this -Congestive heart failure chronic systolic function with acute exacerbation patient has ischemic cardiomyopathy -GI prophylaxis -DVT prophylaxis: Patient is on Eliquis -Full code Plan: Cardiology following closely and medications being adjusted. Patient has been transitioned to oral Lasix and Aldactone although will be holding for now as kidney functions are worsening. Cardiology has made adjustments recommending outpatient follow-up and has signed off the case Patient had some confusion and code stroke was called, CT head showed no acute intracranial process. Patient did have an elevated D-dimer and underwent CT chest without contrast with suboptimal study although shows cardiomegaly with trace right pleural effusion. Emphysema. Large either saccular aneurysm or contained rupture of the descending thoracic aorta measuring up to 9.4 x 6.4 cm including the excluded sac. Findings are incompletely evaluated given lack of IV contrast but appears similar to prior study 02/07/2024. Per patient and family she was told she is not a surgical candidate per Lino Griffith There is also a noted markedly enlarged thyroid gland with the right thyroid lobe substernal extension into the mediastinum. Patient scheduled to undergo MRI of the brain per neurology although she will likely not be able to tolerate given her respiratory status. Per neurology may repeat CT in a few days continue on aspirin and Sobia Discussed CODE STATUS with the patient and family member daughter as patient remains slightly confused and daughter reports she would like her to remain full code. Due to multiple complex medical issues, overall prognosis is extremely guarded at this time. The impression and plan of care has been dictated by Marion Castro, Nurse Practitioner as directed. Dr. Rolan MD I have performed a history and physical examination and medical decision making of this patient, discussed the same with the dictator, and agree with the dictators assessment and plan as written, documented as a scribe. Based on total visit time, I have performed more than 50% of this visit. Objective - Vital Signs Vital signs: Vital Signs Temp 97.4 F L 04/27/24 08:15 Pulse 72 04/27/24 11:42 Resp 21 04/27/24 08:15 BP 95/62 04/27/24 08:15 Pulse Ox 97 04/27/24 08:15 FiO2 50 04/26/24 13:29 Intake & Output 04/26/24 04/27/24 04/27/24 18:59 06:59 18:59 Intake Total 180 Output Total 0 0 Balance 0 180 Weight 76 kg Intake: Oral 180 Output: Stool 0 0 Other: Voiding Method External Catheter External Catheter External Catheter # Voids 1 3 1 - Labs CBC & Chem 7: 04/26/24 06:06 04/27/24 06:31 Labs: Abnormal Lab Results - Last 24 Hours (Table) 04/27/24 04/27/24 Range/Units 06:31 06:31 Potassium 5.2 H (3.5-5.1) mmol/L BUN 81 H (7-17) mg/dL Creatinine 1.71 H (0.52-1.04) mg/dL Glucose 125 H (74-99) mg/dL Hemoglobin A1c 7.1 H (<=6.0) % Magnesium 2.7 H (1.6-2.3) mg/dL
[2024-04-28 07:06] LABS: ALT 94 U/L (4-34); AST 59 U/L (14-36); African American GFR (CKD) 55 (>60 ml/min/1.73 sqM); Albumin 3.8 g/dL (3.5-5.0); Alkaline Phosphatase 103 U/L (38-126); Anion Gap 9 mmol/L; Blood Urea Nitrogen 61 mg/dL (7-17); Calcium 9.1 mg/dL (8.4-10.2); Carbon Dioxide 25 mmol/L (22-30); Chloride 108 mmol/L (98-107); Glucose 155 mg/dL (74-99); Non-African American GFR(CKD) 48 (>60 ml/min/1.73 sqM); Potassium 5.4 mmol/L (3.5-5.1); Sodium 142 mmol/L (137-145); Total Bilirubin 1.6 mg/dL (0.2-1.3); Total Protein 6.4 g/dL (6.3-8.2)
--- NOTE | 2024-04-28 09:06 | P.PN ---
Subjective Progress Note Date: 04/27/24 Patient was seen for a follow-up. Patient asking "can I go home". She is laying in the bed. She appears more comfortable. She is moaning at times. She is saying that she is thirsty. She has not had any water for last 2 days. No new concerns. Objective - Vital Signs Vital signs: Vital Signs Temp 97.4 F L 04/27/24 08:15 Pulse 72 04/27/24 11:42 Resp 21 04/27/24 08:15 BP 95/62 04/27/24 08:15 Pulse Ox 97 04/27/24 08:15 FiO2 50 04/26/24 13:29 Intake & Output 04/26/24 04/27/24 04/27/24 18:59 06:59 18:59 Intake Total 180 Output Total 0 Balance 0 180 Weight 76 kg Intake: Oral 180 Output: Stool 0 Other: Voiding Method External Catheter External Catheter # Voids 1 3 1 - Exam Patient is laying in the bed, appears more comfortable. Sometime she moans. She has moderate myoclonic jerks of outstretched hands. Rest of the examination is unchanged. - Labs CBC & Chem 7: 04/26/24 06:06 04/28/24 05:39 Labs: Abnormal Lab Results - Last 24 Hours (Table) 04/26/24 04/27/24 04/27/24 Range/Units 12:27 06:31 06:31 ABG pH 7.46 H (7.35-7.45) ABG pCO2 23 L (35-45) mmHg ABG pO2 82 L (83-108) mmHg ABG HCO3 16 L (21-25) mmol/L ABG Total CO2 17 L (19-24) mmol/L Potassium 5.2 H (3.5-5.1) mmol/L BUN 81 H (7-17) mg/dL Creatinine 1.71 H (0.52-1.04) mg/dL Glucose 125 H (74-99) mg/dL Hemoglobin A1c 7.1 H (<=6.0) % Magnesium 2.7 H (1.6-2.3) mg/dL Assessment and Plan Assessment: * Possible stroke/TIA manifesting with slurred speech, confusion. At present patient has no obvious aphasia or dysarthria, but does have mild left arm drift. Examination very limited because of delirium related to difficulty breathing. 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 * Hyperlipidemia * Moderate to severe mitral regurgitation Plan: Patient had stroke code activated 04/25/2024. Patient has mild deficits noted at this time. Patient was not a candidate for TNK because she has been on Eliquis. Recommend MRI of the brain without contrast, evaluate for acute CVA. Patient very short of breath, uncertain if patient will be able to tolerate MRI. Repeat CT head in the morning. 2-D echo with bubble study to rule out PFO CTA head and neck showed: Essentially nondiagnostic study given technical factors related to low cardiac output and timing of contrast bolus. 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 Recommend either MRI for further evaluation or repeat CTA head and neck. No occlusive thrombus within the proximal middle cerebral arteries and proximal anterior cerebral arteries. Dense calcified plaque and suspected greater than 70% stenosis of the bilateral cervical ICA also incompletely evaluated. Carotid Doppler revealed no hemodynamically significant stenosis in either ICA. Right and left vertebral artery is not visualized. Fasting a.m. lipid panel cholesterol 128, LDL 67, HDL 41, triglycerides 95. Continue higher dose Lipitor 40 mg daily. (At home on 20 mg daily). Hemoglobin A1c 7.1. Recommend optimize control of diabetes to target A1c < 7.0. Optimize control of blood pressure. Continue Eliquis 5 mg twice daily. Patient also given aspirin 325 mg x 1 dose yesterday. Neuro checks every 2 hours. ABG with pH of 7.46, pCO2 23, pO2 82 and saturation 96%. Likely from hyperv entilation. Pulmonary on board. Telemetry monitoring rule out any arrhythmia. Cardiology on board. PT, OT, speech therapy DVT prophylaxis: Patient on Eliquis Other medical management as per IM and other specialties on board.
--- NOTE | 2024-04-28 13:22 | CT ---
EXAMINATION TYPE: CT brain wo con CT DLP: 1156.4 mGycm, Automated exposure control for dose reduction was used. DATE OF EXAM: 04/28/2024 1:15 PM COMPARISON: CT brain 04/25/2024 CLINICAL INDICATION:Female, 69 years old with history of Follow up, ?CVA, FOLLOW UP CVA TECHNIQUE: Brain: Multiple axial CT images of the brain were obtained without IV contrast. . Coronal and sagitta l reformats reviewed. FINDINGS: Brain: Extra-axial spaces: No abnormal extra-axial fluid collections. Ventricular system: Dilatation in proportion to cerebral atrophy. Cerebral parenchyma: Cerebral atrophy. No acute intraparenchymal hemorrhage or mass effect. The salas -white junction is well differentiated. Scattered hypoattenuating areas are seen within the periventr icular white matter. Cerebellum: Soft malacia redemonstrated within the left cerebellum. Mass effect: No evidence of midline shift. Intracranial vasculature: Atherosclerotic calcifications of the intracranial vessels. Soft tissues: Normal. Calvarium/osseous structures: No depressed skull fracture. Paranasal sinuses and mastoid air cells: The mastoid air cells are clear. Minimal scattered mucosal t hickening of the paranasal sinuses. Visualized orbits: Orbital contents are intact. IMPRESSION: 1. No acute intracranial process. 2. 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 3. Nonspecific white matter changes, likely secondary to chronic small vessel ischemic disease. [facility], , 04/28/2024 1:20 PM
--- NOTE | 2024-04-28 15:26 | P.PN ---
Subjective Progress Note Date: 04/28/24 Principal diagnosis: Acute hypoxic respiratory failure secondary to COPD exacerbation, chronic systolic congestive heart failure with LV dysfunction, and atrial fibrillation with RVR. Patient is a 69-year-old female with past medical history significant for atrial fibrillation, hypertension, hyperlipidemia, coronary artery disease with previous CABG, ischemic cardiomyopathy with ejection fraction 15 to 20%, thoracic aortic aneurysm, former tobacco smoker, and asthma/COPD. Presents to the emergency department last night with a chief complaint of shortness of breath that worsened yesterday. Workup in the emergency department found patient to be in atrial fibrillation with rapid ventricular rate. Rate up to 140s bpm. She was started on Cardizem infusion. Chest x-ray showing cardiomegaly with interstitial prominence. NT proBNP was elevated at 5720. CBC unremarkable for leukocytosis, WBC count 5.7, hemoglobin 11.9, platelets 160. CMP: Sodium 143, potassium 3.1, chloride 110, serum bicarb 21, BUN 18, creatinine 0.77, glucose 147. Lactic 1.7. LFTs not elevated. Troponin 0.013. NT proBNP 5720. Recent available echocardiogram from February, showing severe impairment of left ventricular systolic function with an ejection fraction of 15 to 20%. Also, m oderate to severe mitral regurgitation along with mild to moderate tricuspid regurgitation. Previously had LifeVest, which reportedly shocked her twice. She stopped wearing it, and sent it back approximately 1 month ago. Patient currently being evaluated in the emergency department. On 2L nasal cannula without distress. Denies home O2 use. Spo2 reading 92% on bedside monitor. Heart rhythm remains in A.fib with RVR. Heart rate 100-120 bpm. Cardizem infusing at 5mg/hr. States that she was "sick" last Wednesday. Having shortness of breath with associated cough with occasional white phlegm production. Denies any fevers or chills. Denies nausea or vomiting or diarrhea. Denies sick contacts. Lives with her daughter. Does have history of asthma/COPD. Former tobacco smoker, quit 3 years ago. She is unsure of her inhalers, but does have an as needed albuterol inhaler. Tried using her rescue inhaler without much relief. She felt that her "heart was acting up". Endorses palpitations. Denies any chest pain, orthopnea, lower extremity swelling, lightheadedness or syncopal events. Denies missing any doses of Lasix. Is chronically anticoagulated on Eliquis. Most recent vital signs: Afebrile, heart rate 91 bpm, blood pressure 111/75 mmHg, nontachypneic, SpO2 reading 94% on 2 L/min nasal cannula. On 04/21/2024, the patient is being seen in follow-up in the intensive care unit. Noted, earlier this morning, the patient encountered some hypotension. Based on that, the patient got transferred to the ICU. She was given to 50 cc of bolus of normal saline and currently she is normotensive. She is on 3 L of oxygen by nasal cannula. Denies having any chest pain. Denies having any s ignificant shortness of breath. She is still tachycardic and she remains in atrial fibrillation. Pulse ox is in the order of 91% on 2 L of oxygen by nasal cannula. The patient is currently on anticoagulation with Eliquis 5 mg p.o. twice a day. The patient remains on amiodarone 2 mg p.o. twice a day and metoprolol 50 mg daily. She is also on Aldactone. She is on bronchodilators. She is on a prednisone burst taper. 04/22/2024, the patient is being seen for a follow-up. The patient is awake and alert and denies any chest pain or shortness of breath. Nevertheless, the patient continues to be tachycardic. The patient may be in a flutter rhythm. A twelve-lead EKG was ordered accordingly. The patient is currently on metoprolol 100 mg p.o. daily. The patient is on centimeter of 5 mg p.o. twice a day. She is on anticoagulation with Eliquis 5 mg p.o. twice daily. Cardiology has been involved in the case. Normotensive. Producing adequate amount of urine output. The white cell count is at 10.6 with a hemoglobin of 12 and a platelet count of 187. Sodium is at 142, BUN 39 with a creatinine of 1.1. The patient is oxygenating adequately and the patient remains on 2 L of oxygen nasal cannula with a pulse ox of 95%. On 04/23/2024, the patient is being seen for a follow-up. The patient is currently on 2 L of oxygen by nasal cannula. She continues to be sinus tachycardia. She is on metoprolol 100 mg p.o. daily and the dose will be modified based on her ongoing tachycardia. The patient remains on amiodarone 4 mg p.o. twice a day and the patient is also on anticoagulation with Eliquis. She is on Lasix 40 mg p.o. twice a day and Aldactone 25 mg p.o. today. Calm and comfortable. No significant shortness of breath. No ventricular arrhythmias. WBC count is at 10.4 with a hemoglobin 12 and a platelet count of 189. Sodium is at 141, BUN 39 and the creatinine is 1.02. No other significant events overnight. Patient was evaluated today on 04/24/2024, remains in the ICU, on 3 L nasal cannula, O2 sats 97%, patient is hemodynamically stable, but she continues to have significant complaints mostly shortness of breath, intermittent cough, no chest pain, no fever, no chills, no hemoptysis. Electrolytes are normal BUN is 42 creatinine 1.32. WBC count is 10.4 hemoglobin is 12, chest x-ray yesterday showed cardiomegaly with post CABG changes, and known thoracic aortic aneurysm. No evidence of pulmonary edema. Patient remains on Eliquis, amiodarone 400 twice daily orally, farxiga, prednisone 40 mg daily Aldactone 25 mg daily she is on updrafts using albuterol/iPratropium bromide, Lasix 40 mg twice daily, and she is on Symbicort. Today I will try to transfer the patient out of the ICU to a monitored bed and selective. Patient was seen today on 04/25/2024, she is now on overflow in the ICU, remains on 2 L nasal cannula, does not seem to be in distress, for some reason her admitting physician ordered a VQ scan, patient is already on Eliquis, and her VQ scan is vague and was poor quality according to the radiologist. Nonetheless the patient is already on Eliquis, and probably she did not need the VQ scan in the first place. Her labs today were reviewed, her electrolytes are normal BUN is 55 creatinine 1.52. Patient denies being short of breath, remains on Eliquis amiodarone prednisone Aldactone and she is also on albuterol updrafts. With ipratropium bromide. Patient was seen today on 04/26/2024, pulmonary tinajero the patient seems to be in no distress, however she seems to be moaning and groaning and getting extremely anxious and agitated. Neurology is seeing the patient for a code stroke called on this patient yesterday and the patient was noted to have decreased level of responsiveness. Significant workup was done by that by neurology, and all the diagnostic workup was reviewed. The workup included carotid Doppler, angiography CT, brain CT, chest CT, I reviewed the CT of the chest, showed mostly emphysema, and a large saccular aortic aneurysm/descending thoracic aorta. Apparently has been present and has been noted on a previous CT of the chest in January 2024. Patient was seen today on 04/27/2024, patient is relatively asymptomatic, not complaining of any shortness of breath, not complaining of any chest pain, she seems to be much Colmer today, relatively asymptomatic. Basic metabolic profile was noted to be relatively normal. ABG yesterday was reviewed with a pO2 of 82 pCO2 23 pH of 7.46. Seen today on 04/28/2024, patient is doing well, no pulmonary symptoms no cough no wheezing no shortness of breath, patient is actually on room air, awaiting placement, still being followed by many consultants. But again she has no active pulmonary issues today. Objective - Vital Signs Vital signs: Vital Signs Temp 97.7 F 04/28/24 11:23 Pulse 54 L 04/28/24 11:23 Resp 20 04/28/24 11:23 BP 126/61 04/28/24 11:23 Pulse Ox 91 L 04/28/24 11:23 FiO2 50 04/26/24 13:29 Intake & Output 04/27/24 04/28/24 04/28/24 18:59 06:59 18:59 Intake Total 360 120 Output Total 400 600 Balance -40 -600 120 Weight 76 kg 74 kg Intake: Oral 360 120 Output: Urine 400 600 Stool 0 Other: Voiding Method External Catheter External Catheter External Catheter # Voids 1 - Exam GENERAL EXAM: 69-year-old -[place] female in no distress on room air HEAD: Normocephalic and atraumatic EYES: Normal reaction of pupils, equal size. NOSE: Clear with pink turbinates. THROAT: No erythema or exudates. NECK: No masses, no JVD. CHEST: No chest wall deformity. LUNGS: Minimal crackles at the bases, no rhonchi no wheezes CVS: Irregular rhythm, no S3 gallop, 2/6 systolic murmur throughout the precordium ABDOMEN: No hepatosplenomegaly, active bowel sounds, no guarding or rigidity. SKIN: No rashes CENTRAL NERVOUS SYSTEM: Alert oriented x 3 no focal deficit EXTREMITIES: No clubbing edema or cyanosis - Labs CBC & Chem 7: 04/26/24 06:06 04/28/24 05:39 Labs: Abnormal Lab Results - Last 24 Hours (Table) 04/28/24 Range/Units 05:39 Potassium 5.4 H (3.5-5.1) mmol/L Chloride 108 H (98-107) mmol/L BUN 61 H (7-17) mg/dL Creatinine 1.17 H (0.52-1.04) mg/dL Glucose 155 H (74-99) mg/dL Total Bilirubin 1.6 H (0.2-1.3) mg/dL AST 59 H (14-36) U/L ALT 94 H (4-34) U/L Assessment and Plan Assessment: Impression: Acute hypoxic respiratory failure secondary to chronic systolic congestive heart failure, COPD exacerbation, and atrial fibrillation with RVR. Benign essential hypertension Dyslipidemia Coronary arteriosclerosis and previous CABG Severe ischemic cardiomyopathy and LV dysfunction with ejection fraction of 15 to 20% Moderate mitral regurgitation History of descending thoracic aortic aneurysm, not a surgical candidate Ex-smoker Probable CVA/TIA Acute delirium Recommendation: Continue oxygen and titrate accordingly Continue amiodarone as per cardiology on the case. Continue metoprolol 100 twice daily Continue diuretics/Lasix 40 mg twice daily Continue Eliquis Continue DuoNeb and Symbicort Placed on Medrol Dosepak and discontinue methylprednisolone Will follow as needed. Time with Patient: Less than 30
--- NOTE | 2024-04-28 15:59 | CA ---
Transthoracic Echo Report Name: Ruba Iyer Age: 69 Gender: F : 1955 Exam Date: 04/28/2024 10:28 Exam Location: [facility] Ht (in): 65 Wt (lb): 163 Ordering Physician: Natasha Bear MD Attending/Referring Phys: Real Estate Portfolio Manager Marianne Glynn, JENNIFER Procedure CPT: Indications: Recent stroke/tia Cardiac Hx: CHF, CABG, COPD, A-fib, Asthma/ Limited for LVF Technical Quality: Good Contrast 1: Definity Total Dose (mL): 2 Contrast 2: Total Dose (mL): MEASUREMENTS (Male / Female) Normal Values 2D ECHO LV Diastolic Volume MOD BP 136.2 cm??? 67 - 155 / 56 - 104 cm??? LV Systolic Volume MOD BP 104.6 cm??? 22 - 58 / 19 - 49 cm??? LV Ejection Fraction MOD BP 23.2 % >= 55 % LV Cardiac Index MOD BP 1071.5 cm???/min???m??? LV Diastolic Volume MOD 4C 121.5 cm??? LV Systolic Volume MOD 4C 83.2 cm??? LV Ejection Fraction MOD 4C 31.6 % LV Cardiac Index MOD 4C 1301.5 cm???/min???m??? LV Diastolic Length 4C 7.5 cm LV Systolic Length 4C 6.8 cm LV Diastolic Volume MOD 2C 144.8 cm??? LV Systolic Volume MOD 2C 121.0 cm??? LV Ejection Fraction MOD 2C 16.5 % LV Cardiac Index MOD 2C 808.6 cm???/min???m??? LV Diastolic Length 2C 7.9 cm LV Systolic Length 2C 7.5 cm DOPPLER MV Area PHT 3.4 cm??? MR Peak Velocity 535.3 cm/s MR Peak Gradient 114.6 mmHg TR Peak Velocity 281.2 cm/s TR Peak Gradient 31.6 mmHg FINDINGS Left Ventricle Left ventricular ejection fraction is estimated at 30-35%. Severely increased left ventricular diastolic volume. Severely increased left ventricular systolic volume. Severely decreased left ventricular ejection fraction. Right Ventricle Right Atrium Left Atrium Mitral Valve Mitral valve thickened. No mitral stenosis. Moderate mitral regurgitation. Aortic Valve Tricuspid Valve Pulmonic Valve Pericardium Aorta CONCLUSIONS Enlarged left ventricle with a global decrease in contractility, atypical septal motion and inferior wall hypokinesia of a severe degree, ejection fraction in the 35% range with moderate mitral regurgitation eccentric. No pericardial effusion Previewed by: Dr. Adilia Cheney MD (Electronically Signed) Final Date: 28 April 2024 15:58
[2024-04-29 07:16] LABS: Anisocytosis Slight; Basophils % (A) 0 %; Eosinophils % (A) 0 %; HCT 41.3 % (34.0-46.0); HGB 12.4 gm/dL (11.4-16.0); Hypochromasia Moderate; Lymphocytes # (A) 0.9 k/uL (1.0-4.8); Lymphocytes % (A) 9 %; MCH 26.1 pg (25.0-35.0); MCV 86.8 fL (80.0-100.0); Mean Platelet Volume 10.1; Monocytes # (A) 0.9 k/uL (0-1.0); Monocytes % (A) 8 %; Neutrophils # (A) 8.8 k/uL (1.3-7.7); Neutrophils % (A) 82 %; Platelet Count 163 k/uL (150-450); RBC 4.75 m/uL (3.80-5.40); RDW 18.7 % (11.5-15.5); WBC 10.8 k/uL (3.8-10.6)
[2024-04-29 07:34] LABS: ALT 89 U/L (4-34); AST 50 U/L (14-36); African American GFR (CKD) 71 (>60 ml/min/1.73 sqM); Albumin 3.7 g/dL (3.5-5.0); Alkaline Phosphatase 100 U/L (38-126); Anion Gap 6 mmol/L; Blood Urea Nitrogen 43 mg/dL (7-17); Calcium 9.3 mg/dL (8.4-10.2); Carbon Dioxide 28 mmol/L (22-30); Chloride 108 mmol/L (98-107); Glucose 126 mg/dL (74-99); Magnesium 2.4 mg/dL (1.6-2.3); Non-African American GFR(CKD) 62 (>60 ml/min/1.73 sqM); Potassium 5.5 mmol/L (3.5-5.1); Sodium 142 mmol/L (137-145); Total Bilirubin 1.5 mg/dL (0.2-1.3); Total Protein 6.3 g/dL (6.3-8.2)
--- NOTE | 2024-04-29 07:35 | P.PN ---
Subjective Progress Note Date: 04/28/24 61-year-old female came in with complaints of shortness of breath and hypoxemia believe any oxygen at home presently available. Patient has history of congestive heart failure with EF of around 15 to 20% and patient is also in atrial fibrillation patient is supposed to wear LifeVest has not been wearing it because it shocked her twice in the past. Patient does have a history of COPD as well quit smoking 2 years ago. Although patient has really no significant wheezing patient with elevated BNP of thousand does not have any significant pedal edema chest x-ray is consistent with pulmonary edema. There is no pneumonic infiltrate patient does complain of cough without any significant sputum production. Patient is on anticoagulation with Eliquis 04/21/2024 Patient evaluated today in follow up in the ICU. Patient has been transition to oral Lasix 40 mg twice daily. Remains on oral Eliquis. Patient has been taken off IV Cardizem continues on oral amiodarone. Additionally on oral metoprolol. Currently on oral prednisone. heart rate is better controlled at 110 and sinus tachycardia. Blood pressure marginal 83/49. Has not been started on pressor support at this time. 04/22/2024 Patient is evaluated in follow-up in the ICU. She is awake alert and oriented she remains in sinus tachycardia with heart rate of 120s. She continues on oral amiodarone oral Lasix. Chest x-ray today reveals no radiographic evidence for an acute process there is cardiomegaly with post CABG changes. There is redemonstration of a known thoracic aortic aneurysm. 04/23/2024 Patient remains in the intensive care unit and reports that she has been downgraded to the medical floor. She is awake alert and oriented resting in bed she states overall she is feeling improved from admission. Her heart rate remains in the 120s. She continues on oral amiodarone and oral metoprolol with doses were increased yesterday. She is also on oral Lasix twice daily. She has no acute complaints at this time. Labs today reveal a white blood cell count of 10.4, hemoglobin 12.0, sodium 141, potassium 4.1, BUN of 39 creatinine of 1.02 and a calcium level of 9.3. 04/24/2024 Patient is seen in follow-up today continues as a 3 S. hold in the ICU being followed by pulmonary and cardiology. Patient continues to report significant shortness of breath and working to breathe. Will add D-dimer and if positive may need further imaging. Patient is continued on Eliquis and will continue at this time. Medications being adjusted per cardiology and has been transition to oral Lasix. Continue breathing treatments and steroids at this time and will follow-up on repeat labs. Encouraged increase activity as tolerated and awaiting PT/OT therapy. 04/25/2024 Patient is seen in follow-up this morning continues to be in the ICU although is a downgrade once a bed is available. Patient being followed by cardiology as well as pulmonary and continues to report significant shortness of breath although reports feeling minimally improved from yesterday. D-dimer was positive and patient is maintained on Eliquis with no history of PE and will obtain a VQ scan his kidney functions are elevated and unable to perform CT. Hematology consulted as well as there was concerned of abnormal filling on VQ scan and unsure if patient is truly compliant with medications. Patient reportedly does not wear oxygen outpatient although continues to require oxygen and recommend to wean FiO2 as tolerated and will undergo testing for possible home O2. Patient continues to be dyspneic with conversation and with getting up and walking to the bathroom. Given patient's kidney functions are elevated will hold Lasix and also Aldactone at this time and follow-up on repeat labs. 04/26/2024 Patient is seen in follow-up today Has been downgraded out of the ICU and apparently shortly after patient arriving to this unit had some increased confusion and per nursing reports garbled difficulty speech and code stroke was activated. Neurology following and undergoing further workup. Recommend MRI although unsure if patient will be able to tolerate given her respiratory distress. Patient is extremely dyspneic on exam and reports to significant shortness of breath. Kidney functions are worsening with a creatinine of 1.8 and diuretics currently being held. CODE STATUS to be addressed as patient is currently full code 04/27/2024 Patient is seen in follow-up today with no acute overnight issues noted. Patient mentation is baseline and appears more calm today asking when she can go home. Patient continues to be significantly short of breath and reports does not wear oxygen outpatient. Will need home O2 evaluation. Cardiology making adjustments to medications and have signed off. Pulmonary following as well and has transition to Medrol Dosepak and IV steroids have been discontinued. Patient continues to have elevated kidney functions and recommend holding Farxiga at this time. Dosing adjusted on Eliquis due to kidney functions. Patient is afebrile denies any worsening shortness of breath or chest pains. Will discuss with case management and family regarding discharge planning. PT/OT therapy to evaluate although patient is refusing rehab. 04/28/2024 Patient is seen and evaluated in follow-up. Mentation is improved and at baseline and was evaluated by physical therapy recommending rehab and patient w anted to go home. Discussed further with family and they would like her to go to rehab for continued strength and mobility. Patient has had prolonged hospitalization and is significantly weak requiring assistance. Patient was independently ambulatory prior to this. Patient reports shortness of breath with exertion although feels it is improved and is currently maintaining above 90% on room air. Will continue current medication regimen and consult to case management has been placed and referral has been sent to [facility]. Currently pending insurance authorization. Review of Systems Constitutional: Denied any fatigue denied any fever. Cardio vascular: denied any chest pain, palpitations Gastrointestinal: denied any nausea, vomiting, diarrhea Pulmonary: Reports improvement in shortness of breath Neurologic denied any new focal deficits, reports to feeling weak All inpatient medications were reviewed and appropriate changes in these medications as dictated in the interval history and assessment and plan. PHYSICAL EXAMINATION: GENERAL: The patient is alert and oriented x 23, much more alert today, at baseline. Well nourished. Elderly appearing HEENT: Pupils are round and equally reacting to light. EOMI. No scleral icterus. No conjunctival pallor. Normocephalic, atraumatic. No pharyngeal erythema. No thyromegaly. CARDIOVASCULAR: S1 and S2 muffled PULMONARY: Diminished breath sounds bilaterally with some faint expiratory wheezes and coarse rhonchi noted ABDOMEN: Soft, nontender, nondistended, normoactive bowel sounds. No palpable organomegaly. MUSCULOSKELETAL: No joint swelling or deformity. EXTREMITIES: No cyanosis, clubbing, or pedal edema. NEUROLOGICAL: Gross neurological examination did not reveal any focal deficits. Diffusely weak SKIN: No rashes. Assessment: -Acute hypoxic respiratory failure, multifactorial secondary to congestive heart failure, chronic systolic dysfunction as well as COPD exacerbation -Atrial fibrillation with RVR; paroxysmal, maintained on Eliquis -Acute confusion, multifactorial likely metabolic encephalopathy with strong s uspicion of hypoxia and TIA versus CVA ruled out per neurology -Elevated D-dimer with somewhat inconclusive V/Q scan per radiologist, unable to perform CT given patient's kidney functions. Patient is maintained on Eliquis and denies any history of blood clots or PE. Evaluated by hematology and felt unlikely for PE. -Hypertension -Hyperlipidemia -Coronary artery disease with CABG in the past -Descending thoracic aortic aneurysm history, saccular aneurysm or contained rupture of the descending thoracic aorta measuring up to 9.4 x 6.4 cm including the excluded sac, not a surgical candidate as per [facility] -ischemic cardiomyopathy with an EF of 15 to 20% secondary to coronary disease, LifeVest outpatient although patient was noncompliant with this -Congestive heart failure chronic systolic function with acute exacerbation patient has ischemic cardiomyopathy -GI prophylaxis -DVT prophylaxis: Patient is on Eliquis -Full code Plan: Cardiology and pulmonary following closely and medications being adjusted. Recommend to hold Lasix and Aldactone for now and kidney functions are improving with a creatinine of 1.1. Patient also has been transition to Medrol Dosepak off IV steroids and continued breathing treatments. Cardiology has signed off the patient recommending outpatient follow-up and pulmonary is following as needed. Patient had some confusion and code stroke was called, CT head showed no acute intracranial process. TIA versus CVA less likely Patient did have an elevated D-dimer and underwent CT chest without contrast with suboptimal study although shows cardiomegaly with trace right pleural effusion. Emphysema. Large either saccular aneurysm or contained rupture of the descending thoracic aorta measuring up to 9.4 x 6.4 cm including the excluded sac. Findings are incompletely evaluated given lack of IV contrast but appears similar to prior study 02/07/2024. 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 Patient scheduled to undergo MRI of the brain per neurology although she will likely not be able to tolerate given her respiratory status. Per neurology may repeat CT in a few days continue on aspirin and Eliquis Discussed CODE STATUS with the patient and family member daughter as patient remains slightly confused and daughter reports she would like her to remain full code. Patient was evaluated by physical therapy recommending rehab and patient wants to go home although discussed further with daughter and is agreeable and a referral was placed to [facility] pending authorization. Due to multiple complex medical issues, overall prognosis is extremely guarded at this time. The impression and plan of care has been dictated by Marion Castro, Nurse Practitioner as directed. Dr. Rolan MD I have performed a history and physical examination and medical decision making of this patient, discussed the same with the dictator, and agree with the dictators assessment and plan as written, documented as a scribe. Based on total visit time, I have performed more than 50% of this visit. Objective - Vital Signs Vital signs: Vital Signs Temp 97.4 F L 04/28/24 20:19 Pulse 70 04/29/24 04:05 Resp 18 04/29/24 04:05 BP 92/67 04/29/24 04:05 Pulse Ox 97 04/29/24 04:05 FiO2 50 04/26/24 13:29 Intake & Output 04/28/24 04/29/24 04/29/24 18:59 06:59 18:59 Intake Total 342 Output Total 900 Balance -558 Weight 74 kg Intake: Oral 342 Output: Urine 900 Other: Voiding Method External Catheter External Catheter # Voids 1 # Bowel Movements 1 - Labs CBC & Chem 7: 04/29/24 06:38 04/28/24 05:39 Labs: Abnormal Lab Results - Last 24 Hours (Table) 04/29/24 Range/Units 06:38 WBC 10.8 H (3.8-10.6) k/uL MCHC 30.0 L (31.0-37.0) g/dL RDW 18.7 H (11.5-15.5) % Neutrophils # 8.8 H (1.3-7.7) k/uL Lymphocytes # 0.9 L (1.0-4.8) k/uL
--- NOTE | 2024-04-29 08:43 | P.PN ---
Subjective Progress Note Date: 04/28/24 Patient was seen for a follow-up. Patient is sitting comfortably in the recliner. Patient denies any headache, no dizziness. Her breathing is much better. No new concerns. Objective - Vital Signs Vital signs: Vital Signs Temp 97.7 F 04/28/24 11:23 Pulse 72 04/28/24 16:20 Resp 20 04/28/24 11:23 BP 126/61 04/28/24 11:23 Pulse Ox 91 L 04/28/24 11:23 FiO2 50 04/26/24 13:29 Intake & Output 04/27/24 04/28/24 04/28/24 18:59 06:59 18:59 Intake Total 360 120 Output Total 400 600 400 Balance -40 -600 -280 Weight 76 kg 74 kg Intake: Oral 360 120 Output: Urine 400 600 400 Stool 0 Other: Voiding Method External Catheter External Catheter External Catheter # Voids 1 - Exam Patient is sitting comfortably in the bed. Speech and language functions are normal. She is able to speak in sentences without getting out of breath. No myoclonic jerks noted of outstretched hands. Examination is nonfocal. - Labs CBC & Chem 7: 04/29/24 06:38 04/29/24 06:38 Labs: Abnormal Lab Results - Last 24 Hours (Table) 04/28/24 Range/Units 05:39 Potassium 5.4 H (3.5-5.1) mmol/L Chloride 108 H (98-107) mmol/L BUN 61 H (7-17) mg/dL Creatinine 1.17 H (0.52-1.04) mg/dL Glucose 155 H (74-99) mg/dL Total Bilirubin 1.6 H (0.2-1.3) mg/dL AST 59 H (14-36) U/L ALT 94 H (4-34) U/L Assessment and Plan Assessment: * Possible TIA manifesting with slurred speech, confusion. Symptoms have resolved. Examination nonfocal at this time. * Acute delirium, due to reasons mentioned below, much improved. * Atrial fibrillation with rapid ventricular rate * Hyperkalemia * Acute kidney injury, improving. 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 * Hyperlipidemia * Moderate to severe mitral regurgitation Plan: Patient had stroke code activated 04/25/2024. Patient was not a candidate for TNK because she has been on Eliquis. Repeat CT head performed today showed no acute intracranial process. Left cereb ellum encephalomalacia from prior injury. Nonspecific white matter changes, likely secondary to chronic small vessel ischemic disease. I personally reviewed CT head, agree with the findings, and no change from previous CT head. 2-D echo revealed enlarged left ventricle with a global decrease in c ontractility, atypical septal motion and inferior wall hypokinesia of severe degree, EF 35% range with moderate MR. No pericardial effusion. CTA head and neck showed: Essentially nondiagnostic study given technical factors related to low cardiac output and timing of contrast bolus. 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 Recommend either MRI for further evaluation or repeat CTA head and neck. No occlusive thrombus within the proximal middle cerebral arteries and proximal anterior cerebral arteries. Dense calcified plaque and suspected greater than 70% stenosis of the bilateral cervical ICA also incompletely evaluated. Carotid Doppler revealed no hemodynamically significant stenosis in either ICA. Right and left vertebral artery is not visualized. Fasting a.m. lipid panel cholesterol 128, LDL 67, HDL 41, triglycerides 95. Continue higher dose Lipitor 40 mg daily. (At home on 20 mg daily). Hemoglobin A1c 7.1. Recommend optimize control of diabetes to target A1c < 7.0. Optimize control of blood pressure. Continue Eliquis 5 mg twice daily. No indication for antiplatelet medication, because no significant carotid atherosclerosis seen on carotid Doppler. Neuro checks every shift. ABG with pH of 7.46, pCO2 23, pO2 82 and saturation 96%. Likely from hyperventilation. Pulmonary on board. Telemetry monitoring rule out any arrhythmia. Cardiology on board. PT, OT, speech therapy DVT prophylaxis: Patient on Eliquis Other medical management as per IM and other specialties on board. Neurologically clear for discharge. Neurology will sign off. Please reconsult if any other concerns.
[2024-04-29] MEDS: SODIUM ZIRCONIUM CYCLOSILICATE 10 GM PACKET PO ONE (16:31)
--- NOTE | 2024-04-29 20:15 | PN ---
PROGRESS NOTE DATE OF SERVICE: 04/29/2024 SUBJECTIVE: This 69-year-old woman who presented with CHF and COPD exacerbation, closely monitored. No chest pain. No palpitations. Awaiting ECF. PHYSICAL EXAMINATION: VITAL SIGNS: Pulse is 79, blood pressure 91/67, and respirations 16. CHEST: Few scattered rhonchi and crackles. ABDOMEN: Soft. NERVOUS SYSTEM: Diffusely weak. LABORATORY DATA: Potassium 5.5. ASSESSMENT: 1. Shortness of breath and acute hypoxic respiratory failure secondary to congestive heart failure and chronic obstructive pulmonary disease exacerbation. 2. Atrial fibrillation. 3. Change in mental status, metabolic encephalopathy. 4. Hypertension. 5. Multiple complex medical issues. RECOMMENDATIONS: Recommend to continue current management and continue symptomatic treatment. Repeat labs. Closely monitor. Potassium is consistently elevated. Continue to monitor. Further recommendations to follow. MMODL / IJN: [id number] /
[2024-04-30 06:52] LABS: Anisocytosis Slight; Basophils % (A) 0 %; Eosinophils # (A) 0.1 k/uL (0-0.7); Eosinophils % (A) 0 %; HCT 41.3 % (34.0-46.0); HGB 12.8 gm/dL (11.4-16.0); Hypochromasia Moderate; Lymphocytes # (A) 1.3 k/uL (1.0-4.8); Lymphocytes % (A) 11 %; MCH 26.2 pg (25.0-35.0); MCV 84.7 fL (80.0-100.0); Mean Platelet Volume 9.5; Monocytes # (A) 0.9 k/uL (0-1.0); Monocytes % (A) 8 %; Neutrophils # (A) 9.3 k/uL (1.3-7.7); Neutrophils % (A) 80 %; Platelet Count 152 k/uL (150-450); RBC 4.88 m/uL (3.80-5.40); RDW 18.6 % (11.5-15.5); WBC 11.6 k/uL (3.8-10.6)
[2024-04-30 07:15] LABS: African American GFR (CKD) 89 (>60 ml/min/1.73 sqM); Anion Gap 5 mmol/L; Blood Urea Nitrogen 29 mg/dL (7-17); Calcium 8.9 mg/dL (8.4-10.2); Carbon Dioxide 28 mmol/L (22-30); Chloride 106 mmol/L (98-107); Glucose 112 mg/dL (74-99); Non-African American GFR(CKD) 77 (>60 ml/min/1.73 sqM); Potassium 4.9 mmol/L (3.5-5.1); Sodium 139 mmol/L (137-145)
--- NOTE | 2024-04-30 23:55 | PN ---
PROGRESS NOTE DATE OF SERVICE: 04/30/2024 SUBJECTIVE: This is a 69-year-old woman, who was admitted with CHF and COPD acute exacerbation, closely monitored. No chest pain. No palpitation. OBJECTIVE: VITAL SIGNS: Pulse is 77, blood pressure 120/60, respirations 16. CHEST: A few scattered rhonchi and crackles. ABDOMEN: Soft. NERVOUS SYSTEM: Nonfocal. LABORATORY DATA: Reviewed. ASSESSMENT: 1. Shortness of breath, possibly multifactorial. Chronic obstructive pulmonary disease and congestive heart failure acute exacerbation. 2. Atrial fibrillation. 3. Change in mental status, acute metabolic encephalopathy. 4. Multiple complex medical issues. Please refer to the previous chart. RECOMMENDATIONS: Recommend to continue current management. Continue with diuretics, bronchodilators, possible ECF rehab within the next 24 hours. MMODL / IJN: [id number] /
[2024-05-01 12:07] VITALS: BP 139/66; RESP 18; TEMP 97.8
[2024-05-01 13:37] VITALS: PULSE 66
--- NOTE | 2024-05-04 10:18 | P.DS ---
Providers Date of admission: 04/20/24 00:51 Expected date of discharge: 05/01/24 Attending physician: Elizabet Gongora Consults: 04/20/24 00:49 Consult Physician Urgent Consulting Provider: Noel Espinoza Consult Reason/Comments: aecopd Do you want consulting provider notified?: Yes 04/25/24 11:12 Consult Physician Routine Consulting Provider: Boaz Leggett Consult Reason/Comments: pe, on eliquis Do you want consulting provider notified?: Yes 04/25/24 21:57 Consult Physician Urgent Consulting Provider: Natasha Bear Consult Reason/Comments: CODE STROKE Do you want consulting provider notified?: Yes, Notify in am Primary care physician: Lorenza Christopher [facility] Course: Final diagnosis -Acute hypoxic respiratory failure, multifactorial secondary to congestive heart failure, chronic systolic dysfunction as well as COPD exacerbation -Atrial fibrillation with RVR; paroxysmal, maintained on Eliquis -Acute confusion, multifactorial likely metabolic encephalopathy with strong suspicion of hypoxia and TIA versus CVA ruled out per neurology -Elevated D-dimer with somewhat inconclusive V/Q scan per radiologist, unable to perform CT given patient's kidney functions. Patient is maintained on Eliquis and denies any history of blood clots or PE. Evaluated by hematology and felt unlikely for PE. -Hypertension -Hyperlipidemia -Coronary artery disease with CABG in the past -Descending thoracic aortic aneurysm history, saccular aneurysm or contained rupture of the descending thoracic aorta measuring up to 9.4 x 6.4 cm including the excluded sac, not a surgical candidate as per [facility] -ischemic cardiomyopathy with an EF of 15 to 20% secondary to coronary disease, LifeVest outpatient although patient was noncompliant with this -Congestive heart failure chronic systolic function with acute exacerbation patient has ischemic cardiomyopathy -GI prophylaxis -DVT prophylaxis: Patient is on Eliquis -Full code Discharge disposition Patient is being discharged in a stable condition with guarded prognosis to home with home care being arranged. Patient will follow-up with Dr. Devin Gongora in the outpatient setting upon discharge. Patient is to continue with current medications and close outpatient follow-up with cardiology and pulmonary as scheduled. Total time taken is greater than 35 minutes. Hospital course This is a 69 year-old female who was recently admitted with atrial fibrillation with RVR being closely monitored. Patient was in the ICU for quite some time as patient has noted to have significant ischemic cardiomyopathy with an EF of 15 to 20% although significantly noncompliant outpatient and was given a LifeVest and is not wearing. Patient also with multiple other comorbidities with concerns of CHF as well as COPD exacerbation. Patient with hypoxic respiratory failure secondary to CHF as well as COPD requiring oxygen although has weaned off and is currently room air. Patient did have a brief episode of acute confusion which felt to be metabolic encephalopathy and strong suspicion of hypoxia as patient had significant respiratory distress. Patient was evaluated by neurology and CVA ruled out. Mentation improved although patient continued to be significantly weak and evaluated by physical therapy initially recommending rehab. Insurance denied and patient reevaluated by physical therapy doing better will be going home with daughter. Home care is being arranged per case management. Patient reports to feeling improved and has been cleared by consultations recommending close outpatient follow-up with pulmonary as well as cardiology. Please refer to other consultation notes for further HPI. Currently no reports of chest pain, shortness of breath, or palpitations. Patient is afebrile. No reports of nausea or vomiting and patient is tolerating diet. Patient will be discharged home today. High risk for readmissions given significant comorbidities and noncompliance with outpatient follow-up and sara tment plans Physical exam: Gen: This is a 69-year-old female who is awake, alert and oriented x 3, well- developed, elderly appearing HEENT: Head is atraumatic, normocephalic. Pupils equal, round. Sclerae is anicteric. NECK: Supple. No JVD. No lymphadenopathy. No thyromegaly. LUNGS: Diminished breath sounds bilaterally with some coarse rhonchi. No intercostal retractions. HEART: S1, S2 muffled, irregular ABDOMEN: Soft. Obese, bowel sounds are present. No masses. No tenderness. EXTREMITIES: No pedal edema. No calf tenderness. NEUROLOGICAL: Patient is awake, alert and oriented x3. Cranial nerves 2 through 12 are grossly intact. Please refer to medication reconciliation sheet for a list of medications. The impression and plan of care has been dictated by Marion Castro, Nurse Practitioner as directed. Dr. Audra MD I have performed a history and examination and MDM of this patient, discussed the same with the dictator, and agree with the dictator's assessment and plan as written ,documented as a scribe. Based on total visit time, I have performed more than 50% of the visit. Patient Condition at Discharge: Fair Plan - Discharge Summary Discharge Rx Participant: No New Discharge Prescriptions: New Ipratropium-Albuterol Nebulize [Duoneb 0.5 mg-3 mg/3 ml Soln] 3 ml INHALATION RT-Q2H PRN each PRN Reason: Shortness Of Breath Or Wheezing Folic Acid 1 mg PO DAILY #30 tab Atorvastatin [Lipitor] 40 mg PO DAILY #30 tab Multivitamins, Thera [Multivitamin (formulary)] 1 each PO DAILY #30 tab Amiodarone [Cordarone] 200 mg PO DAILY #30 tab Ipratropium-Albuterol Nebulize [Duoneb 0.5 mg-3 mg/3 ml Soln] 3 ml INHALATION RT-QID #100 each Apixaban [Eliquis] 2.5 mg PO BID #60 tab Metoprolol Succinate (ER) [Toprol XL] 50 mg PO DAILY #30 tab Thiamine [Vitamin B-1] 100 mg PO DAILY #30 tab Continue Nitroglycerin Sl Tabs [Nitrostat] 0.4 mg SUBLINGUAL Q5M PRN PRN Reason: Chest Pain Budesonide-Formot 160-4.5 Mcg [Symbicort 160-4.5 Mcg Inhaler] 2 puff INHALATION RT-BID Discontinued Metoprolol Succinate [Metoprolol Succinate ER] 25 mg PO DAILY Furosemide [Lasix] 40 mg PO DAILY@1800 Apixaban [Eliquis] 5 mg PO BID Losartan [Cozaar] 25 mg PO DAILY 14 Days #14 tab Furosemide [Lasix] 80 mg PO DAILY 30 Days #30 tab Atorvastatin [Lipitor] 20 mg PO DAILY Discharge Medication List Nitroglycerin Sl Tabs [Nitrostat] 0.4 mg SUBLINGUAL Q5M PRN 01/16/24 [History] Budesonide-Formot 160-4.5 Mcg [Symbicort 160-4.5 Mcg Inhaler] 2 puff INHALATION RT-BID 02/06/24 [History] Amiodarone [Cordarone] 200 mg PO DAILY #30 tab 05/01/24 [Rx] Apixaban [Eliquis] 2.5 mg PO BID #60 tab 05/01/24 [Rx] Atorvastatin [Lipitor] 40 mg PO DAILY #30 tab 05/01/24 [Rx] Folic Acid 1 mg PO DAILY #30 tab 05/01/24 [Rx] Ipratropium-Albuterol Nebulize [Duoneb 0.5 mg-3 mg/3 ml Soln] 3 ml INHALATION RT-Q2H PRN each 05/01/24 [Rx] Ipratropium-Albuterol Nebulize [Duoneb 0.5 mg-3 mg/3 ml Soln] 3 ml INHALATION RT-QID #100 each 05/01/24 [Rx] Metoprolol Succinate (ER) [Toprol XL] 50 mg PO DAILY #30 tab 05/01/24 [Rx] Multivitamins, Thera [Multivitamin (formulary)] 1 each PO DAILY #30 tab 05/01/24 [Rx] Thiamine [Vitamin B-1] 100 mg PO DAILY #30 tab 05/01/24 [Rx] Follow up Appointment(s)/Referral(s): Angelica Ponce MD [STAFF PHYSICIAN] - 1 Week [facility], [NON-STAFF] - Sukh Owusu MD [STAFF PHYSICIAN] - 1 Week Lorenza Christopher MD [Primary Care Provider] - 1-2 days Activity/Diet/Wound Care/Special Instructions: Activity limited until follow-up Follow-up with primary care provider on discharge Follow-up with cardiology outpatient Follow-up with pulmonary outpatient Follow-up with neurology outpatient Continue taking medications as prescribed Discharge/Stand Alone Forms: Who Do I Call?, Community Resources, Help In The Home Discharge Disposition: HOME WITH HOME HEALTH SERVICES
== END 2024-05-01 15:28 | disposition home health service (06) | DRG 291 ==
LOC: EC 20:00 → 3SCARD 04-20 00:51 → 2SICU 04-21 05:47 → 3SCARD 04-25 16:49
PROVIDERS: ADMIT Hospitalist; ATTEND Hospitalist
PROC: 3E033RZ Introduction of Antiarrhythmic into Peripheral Vein, Percutaneous Approach (ICD-10-PCS; principal; 2024-04-20)
PROC: 3E033XZ Introduction of Vasopressor into Peripheral Vein, Percutaneous Approach (ICD-10-PCS; 2024-04-21)
DX: I11.0 Hypertensive heart disease with heart failure (principal); G93.41 Metabolic encephalopathy; I50.23 Acute on chronic systolic (congestive) heart failure; J96.21 Acute and chronic respiratory failure with hypoxia; J96.22 Acute and chronic respiratory failure with hypercapnia; I48.92 Unspecified atrial flutter; J45.901 Unspecified asthma with (acute) exacerbation; I69.393 Ataxia following cerebral infarction; E11.9 Type 2 diabetes mellitus without complications; I08.1 Rheumatic disorders of both mitral and tricuspid valves; I71.23 Aneurysm of the descending thoracic aorta, without rupture; J44.1 Chronic obstructive pulmonary disease with (acute) exacerbation; I48.21 Permanent atrial fibrillation; N17.9 Acute kidney failure, unspecified; J43.9 Emphysema, unspecified; I95.9 Hypotension, unspecified; I69.398 Other sequelae of cerebral infarction; I25.5 Ischemic cardiomyopathy; E78.5 Hyperlipidemia, unspecified; E87.6 Hypokalemia; E87.5 Hyperkalemia; R74.8 Abnormal levels of other serum enzymes; K80.20 Calculus of gallbladder without cholecystitis without obstruction; I25.10 Atherosclerotic heart disease of native coronary artery without angina pectoris; R32 Unspecified urinary incontinence; R47.81 Slurred speech; Z91.199 Patient's noncompliance with other medical treatment and regimen due to unspecified reason; Z79.01 Long term (current) use of anticoagulants; Z79.51 Long term (current) use of inhaled steroids; Z79.899 Other long term (current) drug therapy; Z79.84 Long term (current) use of oral hypoglycemic drugs; Z87.891 Personal history of nicotine dependence; Z95.1 Presence of aortocoronary bypass graft
CPT/HCPCS: 36415; 36600; 70450; 70496; 70498; 71045; 71046; 71250; 78582; 80048; 80053; 80061; 82805; 83036; 83605; 83735; 83880; 84132; 84484; 85025; 85027; 85379; 85610; 85730; 87636; 93005; 93308; 93880; 93970; 94640; 94760; 96365; 96366; 96375; 96376; 99291

== ENCOUNTER 2024-05-17 12:05 | Inpatient (IN) | payer MEDICARE, OTHER ==
--- NOTE | 2024-05-17 12:46 | ED ---
SOB HPI - General Chief Complaint: Shortness of Breath Stated Complaint: NEYDA Time Seen by Provider: 05/17/24 12:13 Source: patient, EMS, RN notes reviewed Mode of arrival: EMS Limitations: no limitations - History of Present Illness Initial Comments: This is a 69-year-old female who presents to the emergency department for shortness of breath. States that it started earlier today. Reports a history of asthma and states that she feels like she is having an exacerbation. She tried using an albuterol breathing treatment at home without any relief. Denies any chest pain. En route EMS gave her a duoneb breathing treatment with only mild relief in symptoms. MD Complaint: shortness of breath - Related Data Home Medications Medication Instructions Recorded Confirmed Nitroglycerin Sl Tabs [Nitrostat] 0.4 mg SL Q5M PRN 01/16/24 05/17/24 Budesonide-Formot 160-4.5 Mcg 2 puff INHALATION RT-BID 02/06/24 05/17/24 [Symbicort 160-4.5 Mcg Inhaler] Albuterol Nebulized [Ventolin 2.5 mg INHALATION RT-QID 05/17/24 05/17/24 Nebulized] Apixaban [Eliquis] 5 mg PO BID 05/17/24 05/17/24 Multivitamins, Thera [Multivitamin 1 tab PO DAILY 05/17/24 05/17/24 (formulary)] Previous Rx's Medication Instructions Recorded Amiodarone [Cordarone] 200 mg PO DAILY #30 tab 05/01/24 Atorvastatin [Lipitor] 40 mg PO DAILY #30 tab 05/01/24 Folic Acid 1 mg PO DAILY #30 tab 05/01/24 Ipratropium-Albuterol Nebulize 3 ml INHALATION RT-Q2H PRN each 05/01/24 [Duoneb 0.5 mg-3 mg/3 ml Soln] Ipratropium-Albuterol Nebulize 3 ml INHALATION RT-QID #100 each 05/01/24 [Duoneb 0.5 mg-3 mg/3 ml Soln] Metoprolol Succinate (ER) [Toprol 50 mg PO DAILY #30 tab 05/01/24 XL] Thiamine [Vitamin B-1] 100 mg PO DAILY #30 tab 05/01/24 Allergies Allergy/AdvReac Type Severity Reaction Status Date / Time adhesive Allergy Rash/Hives Verified 05/17/24 13:47 Review of Systems ROS Statement: Those systems with pertinent positive or pertinent negative responses have been documented in the HPI. ROS Other: All systems not noted in ROS Statement are negative. Past Medical History Past Medical History: Atrial Fibrillation, Asthma, Chest Pain / Angina History of Any Multi-Drug Resistant Organisms: None Reported Past Surgical History: No Surgical Hx Reported Additional Past Surgical History / Comment(s): "open heart surgery" Past Anesthesia/Blood Transfusion Reactions: No Reported Reaction Past Psychological History: No Psychological Hx Reported Smoking Status: Former smoker Past Alcohol Use History: None Reported Past Drug Use History: None Reported - Past Family History Father Family Medical History: No Reported History General Exam Limitations: no limitations General appearance: alert, in no apparent distress Head exam: Present: atraumatic, normocephalic, normal inspection Respiratory exam: Present: wheezes, decreased breath sounds, prolonged expiratory Cardiovascular Exam: Present: regular rate, normal rhythm Neurological exam: Present: alert, oriented X3, CN II-XII intact Psychiatric exam: Present: normal affect, normal mood Skin exam: Present: warm, dry, intact, normal color. Absent: rash Course Vital Signs 05/17/24 05/17/24 05/17/24 12:05 13:00 13:03 Temperature 97.5 F L Pulse Rate 67 57 L Respiratory 26 H 22 Rate Blood Pressure 122/65 102/75 O2 Sat by Pulse 94 L 96 Oximetry 05/17/24 05/17/24 05/17/24 13:30 14:00 14:30 Temperature Pulse Rate 53 L 52 L 59 L Respiratory 20 20 20 Rate Blood Pressure 115/65 125/89 116/85 O2 Sat by Pulse 95 95 95 Oximetry 05/17/24 05/17/24 05/17/24 15:00 15:30 16:00 Temperature Pulse Rate 64 57 L 55 L Respiratory 18 20 18 Rate Blood Pressure 116/85 125/76 115/82 O2 Sat by Pulse 95 94 L 95 Oximetry 05/17/24 05/17/24 05/17/24 16:30 17:00 17:30 Temperature Pulse Rate 53 L 56 L 56 L Respiratory 20 18 18 Rate Blood Pressure 124/87 137/87 130/95 O2 Sat by Pulse 95 94 L 95 Oximetry 05/17/24 05/17/24 05/17/24 17:36 17:45 18:00 Temperature Pulse Rate 82 83 71 Respiratory 16 Rate Blood Pressure 114/81 O2 Sat by Pulse 95 Oximetry 05/17/24 05/17/24 05/17/24 18:30 20:37 20:45 Temperature Pulse Rate 65 58 L 55 L Respiratory 17 18 18 Rate Blood Pressure 114/81 O2 Sat by Pulse 95 Oximetry 05/17/24 05/17/24 20:52 21:02 Temperature 97.7 F Pulse Rate 54 L 63 Respiratory 18 18 Rate Blood Pressure 160/82 O2 Sat by Pulse 95 Oximetry Medical Decision Making - Medical Decision Making This is a 69-year-old female who presents to the emergency department for shortness of breath. Was pt. sent in by a medical professional or institution? @ -No Did you speak to anyone other than the patient for history? @ -No Did you review nursing and triage notes? @ -Yes, and I agree, it is accurate with regards to the patient's symptoms. Were old charts reviewed? @ -No Differential Diagnosis? @ -Differential Dyspnea: Coronary syndrome, arrhythmia, tamponade, asthma, COPD, pulmonary embolism, pneumonia, pneumothorax, pulmonary effusion, anaphylaxis, diabetic ketoacidosis, flailed chest, pulmonary contusion, diaphragmatic rupture, anemia, terence romuscular, this is not meant to be an all-inclusive list. EKG interpreted by me (3pts min.)? @ -EKG interpreted by me demonstrating the following: Sinus rhythm. Ventricula r rate 60 bpm, MT interval 179 ms, QRS duration 158 ms, QTc 498 ms. X-rays interpreted by me (1pt min.)? @ -Chest x-ray obtained. My interpretation identifies bilateral pleural effusions. CT interpreted by me (1pt min.)? @ -Not obtained U/S interpreted by me (1pt. min.)? @ -Not obtained What testing was considered but not performed? (CT, X-rays, U/S, labs)? Why? @ -None What meds were considered but not given? Why? @ -None Did you discuss the management of the patient with other professionals? @ -Yes, Dr. Horne, who accepts the patient for admission. Did you reconcile home meds? @ -Yes Was smoking cessation discussed for >3mins.? @ -No Was critical care preformed (if so, how long)? @ -No Were there social determinants of health that impacted care today? How? (Homelessness, low income, unemployed, alcoholism, drug addiction, transportation, low edu. Level, literacy, decrease access to med. care, skilled nursing, rehab)? @ -No Was there de-escalation of care discussed even if they declined? (Discuss DNR or withdrawal of care, Hospice)? @ -No What co-morbidities impacted this encounter? (DM, HTN, Smoking, COPD, CAD, Cancer, CVA, Hep., AIDS, mental health diagnosis, sleep apnea, morbid obesity)? @ -COPD, CHF, cardiomyopathy Was patient admitted / discharged? @ -Admitted. Lab work demonstrates a BNP of 10,000. Magnesium 1.3. COVID, influenza, and RSV testing negative. Chest x-ray demonstrates chronic changes and cardiomegaly with small bilateral pleural effusions. 4 g of magnesium sulfate administered for the hypomagnesemia as well as difficulty breathing. 40 mg of IV Lasix administered for the CHF exacerbation. Patient was in a fair amount of respiratory distress with the combination of a COPD/asthma exacerbation with a CHF exacerbation. DuoNeb breathing treatment administered with some improvement, however she was still persistently wheezy with decreased aeration. Patient admitted to medicine for further management. Consult placed for pulmonology and cardiology. Scheduled and as needed breathing treatments ordered. 125 mg of Solu-Medrol administered and 60 mg q6h Solu-Medrol ordered as well. Case discussed with ED attending, Dr. Zimmerman. Undiagnosed new problem with uncertain prognosis? @ -None Drug Therapy requiring intensive monitoring for toxicity (Heparin, Nitro, Insulin, Cardizem)? @ -None Were any procedures done? @ -None Diagnosis/symptom? @ -COPD exacerbation, CHF exacerbation Acute, or Chronic, or Acute on Chronic? @ -Acute on chronic Uncomplicated (without systemic symptoms) or Complicated (systemic symptoms)? @ -Complicated Side effects of treatment? @ -None Exacerbation, Progression, or Severe Exacerbation] @ -Exacerbation Poses a threat to life or bodily function? @ -Yes - Lab Data Result diagrams: 05/17/24 12:45 05/17/24 12:45 Lab Results 05/17/24 05/17/24 05/17/24 Range/Units 12:45 12:45 12:45 WBC 4.27 L (4.50-10.00) 10*3/uL RBC 4.26 (4.10-5.20) 10*6/uL Hgb 11.3 L (12.0-15.0) g/dL Hct 35.7 L (37.2-46.3) % MCV 83.8 (80.0-97.0) fL MCH 26.5 L (27.0-32.0) pg MCHC 31.7 L (32.0-37.0) g/dL Plt Count 204 (140-440) 10*3/uL MPV 11.3 (9.5-12.2) fL Immature Gran % (Auto) 0.7 % Neutrophils % 59.1 % Lymphocytes % 25.5 % Monocytes % 10.5 % Eosinophils % 3.0 % Basophils % 1.2 % Immature Gran # 0.03 (0.00-0.04) 10*3/uL Neutrophils # 2.52 (1.80-7.70) 10*3/uL Lymphocytes # 1.09 (0.90-5.00) 10*3/uL Monocytes # 0.45 (0.20-1.00) 10*3/uL Eosinophils # 0.13 (0.04-0.35) 10*3/uL Basophils # 0.05 (0.00-0.10) 10*3/uL PT 14.6 H (10.0-12.5) sec INR 1.4 H (<1.2) APTT 25.0 (22.0-30.0) sec Sodium 143 (137-145) mmol/L Potassium 3.9 (3.5-5.1) mmol/L Chloride 114 H (98-107) mmol/L Carbon Dioxide 20 L (22-30) mmol/L Anion Gap 9 mmol/L BUN 12 (7-17) mg/dL Creatinine 0.60 (0.52-1.04) mg/dL Est GFR (CKD-EPI)AfAm >90 (>60 ml/min/1.73 sqM) Est GFR (CKD-EPI)NonAf >90 (>60 ml/min/1.73 sqM) Glucose 111 H (74-99) mg/dL Plasma Lactic Acid Gentry (0.7-2.0) mmol/L Calcium 8.9 (8.4-10.2) mg/dL Magnesium 1.3 L (1.6-2.3) mg/dL Total Bilirubin 1.7 H (0.2-1.3) mg/dL AST 34 (14-36) U/L ALT 27 (4-34) U/L Alkaline Phosphatase 117 (38-126) U/L Troponin I (0.000-0.034) ng/mL NT-Pro-B Natriuret Pep 92799 pg/mL Total Protein 6.0 L (6.3-8.2) g/dL Albumin 3.5 (3.5-5.0) g/dL Influenza Type A (PCR) (Not Detectd) Influenza Type B (PCR) (Not Detectd) RSV (PCR) (Not Detectd) SARS-CoV-2 (PCR) (Not Detectd) 05/17/24 05/17/24 05/17/24 Range/Units 12:45 12:45 12:45 WBC (4.50-10.00) 10*3/uL RBC (4.10-5.20) 10*6/uL Hgb (12.0-15.0) g/dL Hct (37.2-46.3) % MCV (80.0-97.0) fL MCH (27.0-32.0) pg MCHC (32.0-37.0) g/dL Plt Count (140-440) 10*3/uL MPV (9.5-12.2) fL Immature Gran % (Auto) % Neutrophils % % Lymphocytes % % Monocytes % % Eosinophils % % Basophils % % Immature Gran # (0.00-0.04) 10*3/uL Neutrophils # (1.80-7.70) 10*3/uL Lymphocytes # (0.90-5.00) 10*3/uL Monocytes # (0.20-1.00) 10*3/uL Eosinophils # (0.04-0.35) 10*3/uL Basophils # (0.00-0.10) 10*3/uL PT (10.0-12.5) sec INR (<1.2) APTT (22.0-30.0) sec Sodium (137-145) mmol/L Potassium (3.5-5.1) mmol/L Chloride (98-107) mmol/L Carbon Dioxide (22-30) mmol/L Anion Gap mmol/L BUN (7-17) mg/dL Creatinine (0.52-1.04) mg/dL Est GFR (CKD-EPI)AfAm (>60 ml/min/1.73 sqM) Est GFR (CKD-EPI)NonAf (>60 ml/min/1.73 sqM) Glucose (74-99) mg/dL Plasma Lactic Acid Gentry 0.9 (0.7-2.0) mmol/L Calcium (8.4-10.2) mg/dL Magnesium (1.6-2.3) mg/dL Total Bilirubin (0.2-1.3) mg/dL AST (14-36) U/L ALT (4-34) U/L Alkaline Phosphatase (38-126) U/L Troponin I <0.012 (0.000-0.034) ng/mL NT-Pro-B Natriuret Pep pg/mL Total Protein (6.3-8.2) g/dL Albumin (3.5-5.0) g/dL Influenza Type A (PCR) Not Detected (Not Detectd) Influenza Type B (PCR) Not Detected (Not Detectd) RSV (PCR) Not Detected (Not Detectd) SARS-CoV-2 (PCR) Not Detected (Not Detectd) - Radiology Data Radiology results: report reviewed, image reviewed Disposition Clinical Impression: Asthma exacerbation, CHF exacerbation, Hypomagnesemia Disposition: ADMITTED IP TO THIS HOSP
[2024-05-17] MEDS: SODIUM CHLORIDE 0.9% 1,000 ML IV ONE (12:54)
[2024-05-17] MEDS: methylPREDNISolone SOD SUCCI 125 MG/2 ML VIAL IV STA (12:54)
[2024-05-17] MEDS: MAGNESIUM SULFATE-D5W PMX 1 GM in DEXTROSE/WATER 1 100ML.BAG IVPB STA (12:54)
--- NOTE | 2024-05-17 12:58 | XR ---
EXAMINATION TYPE: XR chest 2V DATE OF EXAM: 05/17/2024 CLINICAL INDICATION: Female, 69 years old with history of difficulty breathing, TECHNIQUE: Frontal and lateral views of the chest are obtained. COMPARISON: Chest CT April 25, 2024 FINDINGS: Persistent cardiomegaly with atherosclerotic thoracic aorta.. Persistent large aneurysmal d escending thoracic aorta. Overlying Sternal wires are redemonstrated. Chronic changes bilaterally wi th no suspicious new focal airspace opacity. Small bilateral pleural effusions remain present. The os seous structures are intact. IMPRESSION: Chronic changes and cardiomegaly with small to tiny bilateral pleural effusions. No acute pulmonary infiltrate. No significant change from most recent prior CT. [facility], , 05/17/2024 12:55 PM
[2024-05-17 13:10] LABS: Basophils # (A) 0.05 10*3/uL (0.00-0.10); Basophils % (A) 1.2 %; Eosinophils # (A) 0.13 10*3/uL (0.04-0.35); HCT 35.7 % (37.2-46.3); HGB 11.3 g/dL (12.0-15.0); Lymphocytes # (A) 1.09 10*3/uL (0.90-5.00); Lymphocytes % (A) 25.5 %; MCH 26.5 pg (27.0-32.0); MCHC 31.7 g/dL (32.0-37.0); MCV 83.8 fL (80.0-97.0); Mean Platelet Volume 11.3 fL (9.5-12.2); Monocytes # (A) 0.45 10*3/uL (0.20-1.00); Monocytes % (A) 10.5 %; Neutrophils # (A) 2.52 10*3/uL (1.80-7.70); Neutrophils % (A) 59.1 %; Platelet Count 204 10*3/uL (140-440); RBC 4.26 10*6/uL (4.10-5.20); RDW 19.2 % (11.5-14.5); WBC 4.27 10*3/uL (4.50-10.00)
[2024-05-17 13:27] LABS: INR 1.4 (<1.2); Prothrombin Time 14.6 sec (10.0-12.5)
[2024-05-17 13:33] LABS: ALT 27 U/L (4-34); AST 34 U/L (14-36); African American GFR (CKD) >90 (>60 ml/min/1.73 sqM); Albumin 3.5 g/dL (3.5-5.0); Alkaline Phosphatase 117 U/L (38-126); Anion Gap 9 mmol/L; Blood Urea Nitrogen 12 mg/dL (7-17); Calcium 8.9 mg/dL (8.4-10.2); Carbon Dioxide 20 mmol/L (22-30); Chloride 114 mmol/L (98-107); Glucose 111 mg/dL (74-99); Magnesium 1.3 mg/dL (1.6-2.3); Non-African American GFR(CKD) >90 (>60 ml/min/1.73 sqM); Potassium 3.9 mmol/L (3.5-5.1); Sodium 143 mmol/L (137-145); Total Bilirubin 1.7 mg/dL (0.2-1.3)
[2024-05-17 13:40] LABS: NT-Pro-B-Type Natriuretic Pept 10000 pg/mL
[2024-05-17 13:46] LABS: Influenza A Not Detected (Not Detectd); Influenza B Not Detected (Not Detectd); RSV Not Detected (Not Detectd)
[2024-05-17] MEDS: FUROSEMIDE 10 MG/ML 4 ML VIAL IV STA (14:04)
[2024-05-17] MEDS ORDERED: NALOXONE 0.4 MG/ML 1 ML VIAL IV PRN (14:22)
[2024-05-17] MEDS ORDERED: MORPHINE SULFATE 4 MG/ML SYRINGE IV PRN (14:22)
[2024-05-17] MEDS ORDERED: HYDROcodone/APAP 5-325MG 1 EACH TAB PO PRN (14:22)
[2024-05-17] MEDS ORDERED: ONDANSETRON 4 MG/2 ML VIAL IVP PRN (14:22)
[2024-05-17] MEDS ORDERED: ACETAMINOPHEN TAB 325 MG TAB PO PRN (14:22)
[2024-05-17] MEDS ORDERED: IPRATROPIUM-ALBUTEROL 3 ML NEB INHALATION PRN (14:24)
[2024-05-17] MEDS: MAGNESIUM SULFATE-D5W PMX 1 GM in DEXTROSE/WATER 1 100ML.BAG IVPB SCH (15:21)
--- NOTE | 2024-05-17 17:15 | P.CNPUL ---
History of Present Illness Consult date: 05/17/24 Requesting physician: Nanette Hubbard Reason for consult: dyspnea, hypoxemia, abnormal CXR/CT Chief complaint: Shortness of breath History of present illness: This is a pleasant 69-year-old female with a known history of chronic systolic congestive heart failure with an ejection fraction of 15 to 20%, moderate regurgitation, descending thoracic aortic aneurysm, chronic obstructive pulmonary disease, atrial fibrillation anticoagulated with Eliquis, hypertension, hyperlipidemia, former smoker, CVA/TIA who was recently discharged from here on 05/01/2024 following an exacerbation of her systolic congestive heart failure. She presented back to the emergency room today with increasing shortness of breath, cough and congestion. Chest x-ray reveals chronic changes and cardiomegaly with small to tiny bilateral pleural effusions. No acute pulmonary infiltrate. White count 4.2. Hemoglobin 11.3. Platelets 204. INR 1.4. Sodium 143. Potassium 3.9. Bicarb 20. BUN 12. Creatinine 0.60. Glucose 111. Troponin negative x 1. proBNP 10,000. Viral screen negative. She is seen today in consultation in the emergency department. Currently sitting up in a stretcher. Awake and alert in no acute distress. She is dyspneic with conversation. Dyspneic with minimal exertion. O2 saturations in the mid 90s on 2 L/min per nasal cannula. Afebrile. Hemodynamically stable. Review of Systems REVIEW OF SYSTEMS: CONSTITUTIONAL: Denies any recent significant weight loss or weight gain. EYES: Denies change in vision. EARS, NOSE, MOUTH, THROAT: Denies headaches, denies sore throat. CARDIOVASCULAR: Denies chest pain, palpitations or syncopal episodes. RESPIRATORY: Positive for shortness of breath, cough, congestion no hemoptysis. GASTROINTESTINAL: Denies change in appetite, denies abdominal pain GENITOURINARY: Denies hematuria, denies infections. MUSKULOSKELETAL: Denies pain, denies swelling. INTEGUMENTARY: Denies rash, denies eczema. NEUROLOGICAL: Denies recent memory loss, no recent seizure activity. PSYCHIATRIC: Denies anxiety, denies depression. HEMATOLOGIC/LYMPHATIC: Denies anemia, denies enlarged lymph nodes. Past Medical History Past Medical History: Atrial Fibrillation, Asthma, Chest Pain / Angina History of Any Multi-Drug Resistant Organisms: None Reported Past Surgical History: No Surgical Hx Reported Additional Past Surgical History / Comment(s): "open heart surgery" Past Anesthesia/Blood Transfusion Reactions: No Reported Reaction Past Psychological History: No Psychological Hx Reported Smoking Status: Former smoker Past Alcohol Use History: None Reported Past Drug Use History: None Reported - Past Family History Father Family Medical History: No Reported History Medications and Allergies Home Medications Medication Instructions Recorded Confirmed Type Nitroglycerin Sl Tabs [Nitrostat] 0.4 mg SL Q5M PRN 01/16/24 05/17/24 History Budesonide-Formot 160-4.5 Mcg 2 puff INHALATION RT-BID 02/06/24 05/17/24 History [Symbicort 160-4.5 Mcg Inhaler] Amiodarone [Cordarone] 200 mg PO DAILY #30 tab 05/01/24 05/17/24 Rx Atorvastatin [Lipitor] 40 mg PO DAILY #30 tab 05/01/24 05/17/24 Rx Folic Acid 1 mg PO DAILY #30 tab 05/01/24 05/17/24 Rx Ipratropium-Albuterol Nebulize 3 ml INHALATION RT-Q2H PRN each 05/01/24 05/17/24 Rx [Duoneb 0.5 mg-3 mg/3 ml Soln] Ipratropium-Albuterol Nebulize 3 ml INHALATION RT-QID #100 each 05/01/24 05/17/24 Rx [Duoneb 0.5 mg-3 mg/3 ml Soln] Metoprolol Succinate (ER) [Toprol 50 mg PO DAILY #30 tab 05/01/24 05/17/24 Rx XL] Thiamine [Vitamin B-1] 100 mg PO DAILY #30 tab 05/01/24 05/17/24 Rx Albuterol Nebulized [Ventolin 2.5 mg INHALATION RT-QID 05/17/24 05/17/24 History Nebulized] Apixaban [Eliquis] 5 mg PO BID 05/17/24 05/17/24 History Multivitamins, Thera [Multivitamin 1 tab PO DAILY 05/17/24 05/17/24 History (formulary)] Allergies Allergy/AdvReac Type Severity Reaction Status Date / Time adhesive Allergy Rash/Hives Verified 05/17/24 13:47 Physical Exam Vitals: Vital Signs Temp Pulse Resp BP Pulse Ox 05/17/24 16:30 53 L 20 124/87 95 05/17/24 16:00 55 L 18 115/82 95 05/17/24 15:30 57 L 20 125/76 94 L 05/17/24 15:00 64 18 116/85 95 05/17/24 14:30 59 L 20 116/85 95 05/17/24 14:00 52 L 20 125/89 95 05/17/24 13:30 53 L 20 115/65 95 05/17/24 13:03 97.5 F L 05/17/24 13:00 57 L 22 102/75 96 05/17/24 12:05 67 26 H 122/65 94 L Intake and Output 05/17/24 05/17/24 05/17/24 06:59 14:59 22:59 Other: Weight 76.657 kg GENERAL EXAM: Alert, pleasant 69-year-old female, on 2 L nasal cannula, fairly comfortable in no apparent distress. HEAD: Normocephalic. EYES: Normal reaction of pupils, equal size. NOSE: Clear with pink turbinates. THROAT: No erythema or exudates. NECK: No masses, no JVD. CHEST: No chest wall deformity. LUNGS: Equal air entry with crackles in the bilateral bases. CVS: S1 and S2 normal with no audible murmur, regular rhythm. ABDOMEN: No hepatosplenomegaly, normal bowel sounds, no guarding or rigidity. SPINE: No scoliosis or deformity SKIN: No rashes CENTRAL NERVOUS SYSTEM: No focal deficits, tone is normal in all 4 extremities. EXTREMITIES: There is no peripheral edema. No clubbing, no cyanosis. Peripheral pulses are intact. Results - Laboratory Findings CBC and BMP: 05/17/24 12:45 05/17/24 12:45 PT/INR, D-dimer PT 14.6 sec (10.0-12.5) H 05/17/24 12:45 INR 1.4 (<1.2) H 05/17/24 12:45 Abnormal lab findings: Abnormal Labs 05/17/24 05/17/24 05/17/24 12:45 12:45 12:45 WBC 4.27 L Hgb 11.3 L Hct 35.7 L MCH 26.5 L MCHC 31.7 L PT 14.6 H INR 1.4 H Chloride 114 H Carbon Dioxide 20 L Glucose 111 H Magnesium 1.3 L Total Bilirubin 1.7 H Total Protein 6.0 L - Diagnostic Findings Chest x-ray: image reviewed Assessment and Plan Assessment: Acute hypoxic respiratory failure secondary to an acute exacerbation of chronic systolic congestive heart failure and an acute exacerbation of chronic obstructive pulmonary disease Severe ischemic cardiomyopathy and LV dysfunction with ejection fraction of 15 to 20% Moderate mitral regurgitation History of atrial fibrillation anticoagulated with Eliquis History of descending thoracic aortic aneurysm, not a surgical candidate Benign essential hypertension Dyslipidemia Coronary arteriosclerosis and previous CABG Former smoker History of CVA/TIA Plan: The patient was seen and evaluated Chest x-ray, EKG, labs and medications reviewed Initiated on Lasix 40 mg IV daily Initiated on DuoNeb inhalations Initiated on Pulmicort and Perforomist inhalations Initiated on Solu-Medrol Anticoagulated with Eliquis Resume home medications Titrate down the FiO2 as tolerated Increase her activity as tolerated Plan of care was discussed with the patient who is agreeable to the plan We will continue to follow and make further recommendations based on her clinical status I have personally seen and examined the patient, performed the documentation and the assessment and plan as written. Number of minutes spent on the visit: 20 Dictation was produced using Assignment Editor dictation software. Please excuse any grammatical, word or spelling errors. Time with Patient: Greater than 30
[2024-05-17] MEDS: IPRATROPIUM-ALBUTEROL 3 ML NEB INHALATION SCH (17:31)
[2024-05-17] MEDS: IPRATROPIUM-ALBUTEROL 3 ML NEB INHALATION STA (17:31)
[2024-05-17] MEDS: FORMOTEROL FUMARATE 20 MCG/2 ML NEBU INHALATION SCH (17:35)
[2024-05-17] MEDS: BUDESONIDE 1 MG/2 ML NEBU INHALATION SCH (17:35)
[2024-05-17] MEDS: methylPREDNISolone SOD SUCCI 125 MG/2 ML VIAL IV SCH (18:10)
[2024-05-17] MEDS ORDERED: SYMBICORT 160-4.5 MCG INHALER INHALATION SCH (20:00)
[2024-05-17] MEDS: ALBUTEROL NEBULIZED 2.5 MG/3 ML INHALATION SCH (20:37)
[2024-05-17] MEDS: APIXABAN 5 MG TAB PO SCH (21:28)
--- NOTE | 2024-05-18 02:32 | HP ---
HISTORY AND PHYSICAL CHIEF COMPLAINT: Shortness of breath. HISTORY OF PRESENT ILLNESS: This is a 69-year-old woman with a past medical history of multiple problems including asthma, history of atrial fibrillation, not feeling well over the past several days. The patient had a cough and cold and increased shortness of breath, and the patient also had some leg edema. Also recently, patient mostly had COPD exacerbation as well as some CHF also. There is no history of any fever, rigors, or chills. Viral testing is negative at this time. BNP was 10,000. PAST MEDICAL HISTORY: History of COPD, CHF, atrial fibrillation. Rest of the history and rest of the chart are also reviewed. HOME MEDICATIONS: Reviewed and include: 1. Vitamins. 2. Beta blockers. Dose and rest of medications reviewed. ALLERGIES: . FAMILY HISTORY: No history of heart disease or strokes in the family. SOCIAL HISTORY: No history of alcohol. Previous smoking. REVIEW OF SYSTEMS: 14-point review of systems is negative except as mentioned earlier. PHYSICAL EXAMINATION: VITAL SIGNS: Pulse is 53, blood pressure 128/62, respirations 20. HEENT: Conjunctivae are normal. NECK: No JVD. CARDIOVASCULAR: S1, S2. RESPIRATORY: Breath sounds diminished at the bases. Bilateral scattered rhonchi and crackles. Expiratory wheezing. ABDOMEN: Soft and nontender. LEGS: Bilateral leg edema. NERVOUS SYSTEM: Nonfocal. LABORATORY DATA: Reviewed. ASSESSMENT: 1. Shortness of breath, possibly multifactorial with chronic obstructive pulmonary disease acute exacerbation and congestive heart failure acute exacerbation. 2. History of atrial fibrillation. 3. Asthma history. 4. Remote history of nicotine dependence. RECOMMENDATION: This 69-year-old woman presented with multiple complex medical issues. We will monitor the patient closely. I would recommend intensive bronchodilator treatment, IV steroids, small dose of diuretics, cardiology and pulmonology consultations. Prognosis guarded because of multiple complex medical issues. Further recommendations to follow. Viral titers are pending. Magnesium will be replaced. MMODL / IJN: [id number] /
[2024-05-18 08:38] LABS: Basophils # (A) 0.01 X 10*3/uL (0.00-0.10); Basophils % (A) 0.2 %; Eosinophils # (A) 0 X 10*3/uL (0.04-0.35); Eosinophils % (A) 0 %; HCT 36.6 % (37.2-46.3); Lymphocytes # (A) 0.58 X 10*3/uL (0.90-5.00); Lymphocytes % (A) 13.3 %; MCHC 30.1 g/dL (32.0-37.0); MCV 86.5 FL (80.0-97.0); Mean Platelet Volume 11.5 FL (9.5-12.2); Monocytes # (A) 0.08 X 10*3/uL (0.20-1.00); Monocytes % (A) 1.8 %; NRBC Per 100 WBC 0 X 10*3/uL (0.00-0.01); Neutrophils # (A) 3.66 X 10*3/uL (1.80-7.70); Neutrophils % (A) 84.2 %; Platelet Count 228 X 10*3/uL (140-440); RBC 4.23 X 10*6/uL (4.10-5.20); RDW 19.2 % (11.5-14.5); WBC 4.35 X 10*3/uL (4.50-10.00)
[2024-05-18 08:52] LABS: BUN/Creat Ratio 14.75 Ratio (12.00-20.00); Blood Urea Nitrogen 11.8 mg/dL (9.0-27.0); Calcium 8.6 mg/dL (8.7-10.3); Carbon Dioxide 26.1 mmol/L (21.6-31.8); Chloride 112 mmol/L (96-109); Glucose 190 mg/dL (70-110); Potassium 4.6 mmol/L (3.5-5.5); Sodium 144 mmol/L (135-145)
[2024-05-18] MEDS ORDERED: FUROSEMIDE 10 MG/ML 4 ML VIAL IV SCH (09:00)
[2024-05-18] MEDS: FOLIC ACID 1 MG TAB PO SCH (09:48)
[2024-05-18] MEDS: PANTOPRAZOLE 40 MG/10 ML VIAL IV SCH (09:48)
[2024-05-18] MEDS: METOPROLOL SUCCINATE (ER) 50 MG TAB.ER.24H PO SCH (09:48)
[2024-05-18] MEDS: THIAMINE 100 MG TAB PO SCH (09:48)
[2024-05-18] MEDS: ATORVASTATIN 40 MG TAB PO SCH (09:48)
[2024-05-18] MEDS: MULTIVITAMINS, THERA 1 EACH TAB PO SCH (09:48)
[2024-05-18] MEDS: AMIODARONE 200 MG TAB PO SCH (09:48)
[2024-05-18] MEDS: FUROSEMIDE 10 MG/ML 4 ML VIAL IV SCH (09:49)
--- NOTE | 2024-05-18 10:45 | P.CRDCN ---
History of Present Illness History of present illness: HISTORY OF PRESENT ILLNESS: This is a 69-year-old female with a past medical history significant for atrial fibrillation, coronary artery disease with previous CABG, congestive heart fail ure, ischemic cardiomyopathy, diabetes, and hyperlipidemia. Patient follows in the office with Dr. Grover. We have been asked to see the patient in consultation for CHF. Patient examined at the bedside. Patient presented to the hospital with a chief complaint of shortness of breath. Patient also reports increased lower extremity edema. Patient is not prescribed any diuretics on an outpatient basis. Patient was found to be in acute CHF and was started on IV diuretics. DIAGNOSTICS: - EKG reveals sinus mechanism with right bundle branch block. - Chest xray chronic changes and cardiomegaly with small to tiny bilateral pleural effusions. No acute pulmonary infiltrate. No significant change from most prior CT.. - Laboratory data: WBC 4.27. Hemoglobin 11.3. Platelet count 204. Sodium 143. Potassium 3.9. BUN 12. Creatinine 0.60. Troponin negative x 1. proBNP 10,000. - Current home cardiac medications include metoprolol succinate 50 mg daily, Lipitor 40 mg daily, Eliquis 5 mg twice a day, amiodarone 200 mg daily. - Most recent echocardiogram obtained in April 2024 revealed ejection fraction 30 to 35% with moderate mitral regurgitation - Cardiac catheterization history: Unknown REVIEW OF SYSTEMS: At the time of my exam: CONSTITUTIONAL: Denies fever or chills. HEENT: Denies blurred vision, vision changes, or eye pain. Denies hemoptysis CARDIOVASCULAR: Denies chest pain. Denies orthopnea. Denies PND. Denies palpitations RESPIRATORY: Reports shortness of breath. GASTROINTESTINAL: Denies abdominal pain. Denies nausea or vomiting. HEMATOLOGIC: Denies bleeding disorders. GENITOURINARY: Denies any blood in urine. SKIN: Denies pruitis. Denies rash. PHYSICAL EXAM: VITAL SIGNS: Reviewed. GENERAL: Well-developed in no acute distress. HEENT: Head is normocephalic. Pupils are equal, round. Sclerae anicteric. Mucous membranes of the mouth are moist. Neck supple. No JVD or thyromegaly LUNGS: Respirations even and unlabored. Lungs with bibasilar crackles HEART: Regular rate and rhythm. S1 and S2 heard. ABDOMEN: Soft. Nondistended. Nontender. EXTREMITIES: Normal range of motion. No clubbing or cyanosis. Peripheral pulses intact. Bilateral lower extremity edema noted NEUROLOGIC: Awake and alert. Oriented x 3. ASSESSMENT: Shortness of breath Acute on chronic heart failure with reduced EF, 30 to 35% Coronary artery disease with previous CABG Ischemic cardiomyopathy Paroxysmal atrial fibrillation Hyperlipidemia Diabetes Thoracic aortic aneurysm Abdominal aortic aneurysm PLAN: No need to repeat echocardiogram as this was performed last month Resume home cardiac medications Continue IV Lasix 40 mg every 12 hours Daily weights, accurate intake and output, and monitoring of kidney function Further recommendations pending patient course Nurse practitioner note has been reviewed by physician. Signing provider agrees with the documented findings, assessment, and plan of care documented by FOOD BEVERAGE SERVER as a scribe. Past Medical History Past Medical History: Atrial Fibrillation, Asthma, Chest Pain / Angina History of Any Multi-Drug Resistant Organisms: None Reported Past Surgical History: No Surgical Hx Reported Additional Past Surgical History / Comment(s): "open heart surgery" Past Anesthesia/Blood Transfusion Reactions: No Reported Reaction Past Psychological History: No Psychological Hx Reported Smoking Status: Former smoker Past Alcohol Use History: None Reported Past Drug Use History: None Reported - Past Family History Father Family Medical History: No Reported History Medications and Allergies Home Medications Medication Instructions Recorded Confirmed Type Nitroglycerin Sl Tabs [Nitrostat] 0.4 mg SL Q5M PRN 01/16/24 05/17/24 History Budesonide-Formot 160-4.5 Mcg 2 puff INHALATION RT-BID 02/06/24 05/17/24 History [Symbicort 160-4.5 Mcg Inhaler] Amiodarone [Cordarone] 200 mg PO DAILY #30 tab 05/01/24 05/17/24 Rx Atorvastatin [Lipitor] 40 mg PO DAILY #30 tab 05/01/24 05/17/24 Rx Folic Acid 1 mg PO DAILY #30 tab 05/01/24 05/17/24 Rx Ipratropium-Albuterol Nebulize 3 ml INHALATION RT-Q2H PRN each 05/01/24 05/17/24 Rx [Duoneb 0.5 mg-3 mg/3 ml Soln] Ipratropium-Albuterol Nebulize 3 ml INHALATION RT-QID #100 each 05/01/24 05/17/24 Rx [Duoneb 0.5 mg-3 mg/3 ml Soln] Metoprolol Succinate (ER) [Toprol 50 mg PO DAILY #30 tab 05/01/24 05/17/24 Rx XL] Thiamine [Vitamin B-1] 100 mg PO DAILY #30 tab 05/01/24 05/17/24 Rx Albuterol Nebulized [Ventolin 2.5 mg INHALATION RT-QID 05/17/24 05/17/24 History Nebulized] Apixaban [Eliquis] 5 mg PO BID 05/17/24 05/17/24 History Multivitamins, Thera [Multivitamin 1 tab PO DAILY 05/17/24 05/17/24 History (formulary)] Allergies Allergy/AdvReac Type Severity Reaction Status Date / Time adhesive Allergy Rash/Hives Verified 05/17/24 13:47 Physical Exam Vitals: Vital Signs Temp Pulse Pulse Resp BP BP Pulse Ox 05/18/24 08:15 54 L 05/18/24 07:05 97.7 F 51 L 18 120/70 97 05/18/24 03:14 97.4 F L 50 L 18 121/68 97 05/17/24 22:27 97.5 F L 56 L 16 143/89 96 05/17/24 21:02 97.7 F 63 18 160/82 95 05/17/24 20:52 54 L 18 05/17/24 20:45 55 L 18 05/17/24 20:37 58 L 18 05/17/24 18:30 65 17 114/81 95 05/17/24 18:00 71 16 114/81 95 05/17/24 17:45 83 05/17/24 17:36 82 05/17/24 17:30 56 L 18 130/95 95 05/17/24 17:00 56 L 18 137/87 94 L 05/17/24 16:30 53 L 20 124/87 95 05/17/24 16:00 55 L 18 115/82 95 05/17/24 15:30 57 L 20 125/76 94 L 05/17/24 15:00 64 18 116/85 95 05/17/24 14:30 59 L 20 116/85 95 05/17/24 14:00 52 L 20 125/89 95 05/17/24 13:30 53 L 20 115/65 95 05/17/24 13:03 97.5 F L 05/17/24 13:00 57 L 22 102/75 96 05/17/24 12:05 67 26 H 122/65 94 L Intake and Output 05/17/24 05/18/24 05/18/24 22:59 06:59 14:59 Other: Voiding Method Toilet # Voids 1 Weight 76.657 kg Results 05/18/24 04:03 05/18/24 04:03 Cardiac Enzymes 05/17/24 05/17/24 Range/Units 12:45 12:45 AST 34 (14-36) U/L Troponin I <0.012 (0.000-0.034) ng/mL Coagulation 05/17/24 Range/Units 12:45 PT 14.6 H (10.0-12.5) sec APTT 25.0 (22.0-30.0) sec CBC 05/17/24 Range/Units 12:45 WBC 4.27 L (4.50-10.00) 10*3/uL RBC 4.26 (4.10-5.20) 10*6/uL Hgb 11.3 L (12.0-15.0) g/dL Hct 35.7 L (37.2-46.3) % Plt Count 204 (140-440) 10*3/uL Comprehensive Metabolic Panel 05/17/24 Range/Units 12:45 Sodium 143 (137-145) mmol/L Potassium 3.9 (3.5-5.1) mmol/L Chloride 114 H (98-107) mmol/L Carbon Dioxide 20 L (22-30) mmol/L BUN 12 (7-17) mg/dL Creatinine 0.60 (0.52-1.04) mg/dL Glucose 111 H (74-99) mg/dL Calcium 8.9 (8.4-10.2) mg/dL AST 34 (14-36) U/L ALT 27 (4-34) U/L Alkaline Phosphatase 117 (38-126) U/L Total Protein 6.0 L (6.3-8.2) g/dL Albumin 3.5 (3.5-5.0) g/dL Current Medications Generic Name Dose Route Start Last Admin Trade Name Freq PRN Reason Stop Dose Admin Acetaminophen 650 mg 05/17/24 14:22 Acetaminophen Tab 325 Mg Tab PO Q6HR PRN Mild Pain or Fever > 100.5 Hydrocodone Bitart/Acetaminophen 1 each 05/17/24 14:22 Hydrocodone/Apap 5-325mg 1 Each Tab PO Q4HR PRN Moderate Pain (Scale 4 to 6) Albuterol/Ipratropium 3 ml 05/17/24 14:24 Ipratropium-Albuterol 3 Ml Neb INHALATION RT-Q2H PRN Shortness Of Breath Or Wheezing Albuterol/Ipratropium 3 ml 05/17/24 16:00 05/18/24 08:10 Ipratropium-Albuterol 3 Ml Neb INHALATION 3 ml RT-QID KAREL Administration Amiodarone HCl 200 mg 05/18/24 09:00 Amiodarone 200 Mg Tab PO DAILY [facility] Apixaban 5 mg 05/17/24 21:00 05/17/24 21:28 Apixaban 5 Mg Tab PO 5 mg BID KAREL Administration Protocol Atorvastatin Calcium 40 mg 05/18/24 09:00 Atorvastatin 40 Mg Tab PO DAILY [facility] Budesonide 1 mg 05/17/24 16:12 05/18/24 08:10 Budesonide 1 Mg/2 Ml Nebu INHALATION 1 mg RT-BID KAREL Administration Folic Acid 1 mg 05/18/24 09:00 Folic Acid 1 Mg Tab PO DAILY [facility] Formoterol Fumarate 20 mcg 05/17/24 16:12 05/18/24 08:10 Formoterol Fumarate 20 Mcg/2 Ml Nebu INHALATION 20 mcg RT-BID KAREL Administration Furosemide 40 mg 05/18/24 09:00 Furosemide 10 Mg/Ml 4 Ml Vial IV DAILY [facility] Methylprednisolone Sodium Succinate 60 mg 05/17/24 18:00 05/18/24 06:08 Methylprednisolone Sod Succi 125 Mg/2 Ml Vial IV 60 mg Q6HR KAREL Administration Metoprolol Succinate 50 mg 05/18/24 09:00 Metoprolol Succinate (Er) 50 Mg Tab.Er.24h PO DAILY [facility] Morphine Sulfate 4 mg 05/17/24 14:22 Morphine Sulfate 4 Mg/Ml Syringe IV Q4HR PRN Severe Pain (Scale 7 to 10) Multivitamins 1 each 05/18/24 09:00 Multivitamins, Thera 1 Each Tab PO DAILY [facility] Naloxone HCl 0.2 mg 05/17/24 14:22 Naloxone 0.4 Mg/Ml 1 Ml Vial IV Q2M PRN Opioid Reversal Ondansetron HCl 4 mg 05/17/24 14:22 Ondansetron 4 Mg/2 Ml Vial IVP Q8HR PRN Nausea And Vomiting Pantoprazole Sodium 40 mg 05/18/24 09:00 Pantoprazole 40 Mg/10 Ml Vial IV DAILY KAREL Thiamine HCl 100 mg 05/18/24 09:00 Thiamine 100 Mg Tab PO DAILY KAREL Intake and Output 05/17/24 05/18/24 05/18/24 22:59 06:59 14:59 Other: Voiding Method Toilet # Voids 1 Weight 76.657 kg 05/17/24 12:45 05/17/24 12:45
--- NOTE | 2024-05-18 12:23 | P.PN ---
Subjective Progress Note Date: 05/18/24 This is a pleasant 69-year-old female with a known history of chronic systolic congestive heart failure with an ejection fraction of 15 to 20%, moderate regurgitation, descending thoracic aortic aneurysm, chronic obstructive pulmonary disease, atrial fibrillation anticoagulated with Eliquis, hypertension, hyperlipidemia, former smoker, CVA/TIA who was recently discharged from here on 05/01/2024 following an exacerbation of her systolic congestive heart failure. She presented back to the emergency room today with increasing shortness of breath, cough and congestion. Chest x-ray reveals chronic changes and cardiomegaly with small to tiny bilateral pleural effusions. No acute pulmonary infiltrate. White count 4.2. Hemoglobin 11.3. Platelets 204. INR 1.4. Sodium 143. Potassium 3.9. Bicarb 20. BUN 12. Creatinine 0.60. Glucose 111. Troponin negative x 1. proBNP 10,000. Viral screen negative. She is seen today in consultation in the emergency department. Currently sitting up in a stretcher. Awake and alert in no acute distress. She is dyspneic with conversation. Dyspneic with minimal exertion. O2 saturations in the mid 90s on 2 L/min per nasal cannula. Afebrile. Hemodynamically stable. The patient is seen today May 18, 2024 in follow-up on the regular medical floor. She is currently resting in bed. Awake and alert in no acute distress. Breathing easier today compared to yesterday. She is maintaining O2 saturations in the 90s on 3 L/min per nasal cannula. Still somewhat bronchospastic and wheezy. White count 4.3. Hemoglobin 11.0. Platelets 228. Sodium 144. Potassium 4.6. Bicarb 26. BUN 12. Creatinine 0.8. Glucose 190. She remains on DuoNeb inhalations, Pulmicort and Perforomist inhalations, IV Solu-Medrol. Anticoagulated with Eliquis. Remains on IV diuretics, Lasix 40 mg every 12 hours. No accurate intake and output recorded. Objective - Vital Signs Vital signs: Vital Signs Temp 97.7 F 05/18/24 07:05 Pulse 55 L 05/18/24 11:48 Resp 18 05/18/24 09:48 BP 120/70 05/18/24 07:05 Pulse Ox 100 05/18/24 08:36 FiO2 24 05/18/24 08:36 Intake & Output 05/17/24 05/18/24 05/18/24 18:59 06:59 18:59 Intake Total 118 Balance 118 Weight 76.657 kg 76.657 kg Intake: Oral 118 Other: Voiding Method Toilet Toilet # Voids 1 - Exam GENERAL EXAM: Alert, pleasant 69-year-old female, resting comfortably in bed, on 2 L nasal cannula, in no apparent distress. HEAD: Normocephalic. EYES: Normal reaction of pupils, equal size. NOSE: Clear with pink turbinates. THROAT: No erythema or exudates. NECK: No masses, no JVD. CHEST: No chest wall deformity. LUNGS: Equal air entry with faint end expiratory wheeze, crackles in the bilateral bases. CVS: S1 and S2 normal with no audible murmur, regular rhythm. ABDOMEN: No hepatosplenomegaly, normal bowel sounds, no guarding or rigidity. SPINE: No scoliosis or deformity SKIN: No rashes CENTRAL NERVOUS SYSTEM: No focal deficits, tone is normal in all 4 extremities. EXTREMITIES: There is no peripheral edema. No clubbing, no cyanosis. Peripheral pulses are intact. - Labs CBC & Chem 7: 05/18/24 04:03 05/18/24 04:03 Labs: Abnormal Lab Results - Last 24 Hours (Table) 05/17/24 05/17/24 05/17/24 Range/Units 12:45 12:45 12:45 WBC 4.27 L (4.50-10.00) 10*3/uL Hgb 11.3 L (12.0-15.0) g/dL Hct 35.7 L (37.2-46.3) % MCH 26.5 L (27.0-32.0) pg MCHC 31.7 L (32.0-37.0) g/dL RDW (11.5-14.5) % Lymphocytes # (0.90-5.00) X 10*3/uL Monocytes # (0.20-1.00) X 10*3/uL Eosinophils # (0.04-0.35) X 10*3/uL PT 14.6 H (10.0-12.5) sec INR 1.4 H (<1.2) Chloride 114 H (98-107) mmol/L Carbon Dioxide 20 L (22-30) mmol/L Glucose 111 H (74-99) mg/dL Calcium (8.7-10.3) mg/dL Magnesium 1.3 L (1.6-2.3) mg/dL Total Bilirubin 1.7 H (0.2-1.3) mg/dL Total Protein 6.0 L (6.3-8.2) g/dL 05/18/24 05/18/24 Range/Units 04:03 04:03 WBC 4.35 L (4.50-10.00) 10*3/uL Hgb 11.0 L (12.0-15.0) g/dL Hct 36.6 L (37.2-46.3) % MCH 26.0 L (27.0-32.0) pg MCHC 30.1 L (32.0-37.0) g/dL RDW 19.2 H (11.5-14.5) % Lymphocytes # 0.58 L (0.90-5.00) X 10*3/uL Monocytes # 0.08 L (0.20-1.00) X 10*3/uL Eosinophils # 0 L (0.04-0.35) X 10*3/uL PT (10.0-12.5) sec INR (<1.2) Chloride 112 H (98-107) mmol/L Carbon Dioxide (22-30) mmol/L Glucose 190 H (74-99) mg/dL Calcium 8.6 L (8.7-10.3) mg/dL Magnesium (1.6-2.3) mg/dL Total Bilirubin (0.2-1.3) mg/dL Total Protein (6.3-8.2) g/dL Assessment and Plan Assessment: Acute hypoxic respiratory failure secondary to an acute exacerbation of chronic systolic congestive heart failure and an acute exacerbation of chronic obstructive pulmonary disease Severe ischemic cardiomyopathy and LV dysfunction with ejection fraction of 15 to 20% Moderate mitral regurgitation History of atrial fibrillation anticoagulated with Eliquis History of descending thoracic aortic aneurysm, not a surgical candidate Benign essential hypertension Hyperlipidemia Coronary artery disease and previous CABG Former smoker History of CVA/TIA Plan: The patient was seen and evaluated Labs and medications reviewed Continued on Lasix 40 mg IV daily Continued on DuoNeb inhalations Continued on Pulmicort and Perforomist inhalations Continued on Solu-Medrol Anticoagulated with Eliquis Titrate down the FiO2 as tolerated Increase her activity as tolerated We will continue to follow I have personally seen and examined the patient, performed the documentation and the assessment and plan as written. Number of minutes spent on the visit: 10 Dictation was produced using [employer] dictation software. Please excuse any grammatical, word or spelling errors.
--- NOTE | 2024-05-18 13:28 | P.PN ---
Subjective This is a pleasant 69 years old female with past medical history of multiple medical problems including CHF and asthma. Presents because of shortness of breath. Patient evaluated by pulmonary service and felt to be more CHF rather than asthma however patient was started on IV Solu-Medrol 60 mg and IV Lasix 40 mg twice daily also she is on Eliquis for history of A-fib. Patient evaluated by library services coordinator today and recommend continued monitoring for now. Patient said that she started feeling improvement but she still have some exertional dyspnea when she walks. Currently she is on 2 L oxygen saturating 100% but she says she is not on oxygen at home. She denies any chest pain. No abdominal pain or any other GI/ symptom. No headache dizziness weakness numbness. Labs checked looking hemoglobin is 11. Rest of CBC, BMP is unremarkable. INR 1.4. Influenza A and type B, RSV, SARS (coronavirus) are undetected Echocardiogram done showing low ejection fraction at 30 to 35% proBNP is elevated EKG showing sinus rhythm at 60 with occasional premature complexes. Chest x-ray showing cardiomegaly with pulmonary vascular congestion and mild bilateral pleural effusion Objective - Vital Signs Vital signs: Vital Signs Temp 97.7 F 05/18/24 07:05 Pulse 55 L 05/18/24 11:48 Resp 18 05/18/24 09:48 BP 120/70 05/18/24 07:05 Pulse Ox 100 05/18/24 08:36 FiO2 24 05/18/24 08:36 Intake & Output 05/17/24 05/18/24 05/18/24 18:59 06:59 18:59 Intake Total 118 Balance 118 Weight 76.657 kg 76.657 kg Intake: Oral 118 Other: Voiding Method Toilet Toilet # Voids 1 - Exam GENERAL: The patient is alert and oriented x3, not in any acute distress. Well developed, well nourished. HEENT: Pupils are round and equally reacting to light. EOMI. No scleral icterus. No conjunctival pallor. Normocephalic, atraumatic. No pharyngeal erythema. No thyromegaly. CARDIOVASCULAR: S1 and S2 present. No murmurs, rubs, or gallops. PULMONARY: Chest is clear to auscultation, no wheezing , no crackles. ABDOMEN: Soft, nontender, nondistended, normoactive bowel sounds. No palpable organomegaly. MUSCULOSKELETAL: No joint swelling or deformity. EXTREMITIES: No cyanosis, clubbing, or pedal edema. NEUROLOGICAL: Gross neurological examination did not reveal any focal deficits. SKIN: No rashes. no petechiae. - Labs CBC & Chem 7: 05/18/24 04:03 05/18/24 04:03 Labs: Abnormal Lab Results - Last 24 Hours (Table) 05/17/24 05/17/24 05/18/24 Range/Units 12:45 12:45 04:03 WBC 4.35 L (4.50-10.00) X 10*3/uL Hgb 11.0 L (12.0-15.0) g/dL Hct 36.6 L (37.2-46.3) % MCH 26.0 L (27.0-32.0) pg MCHC 30.1 L (32.0-37.0) g/dL RDW 19.2 H (11.5-14.5) % Lymphocytes # 0.58 L (0.90-5.00) X 10*3/uL Monocytes # 0.08 L (0.20-1.00) X 10*3/uL Eosinophils # 0 L (0.04-0.35) X 10*3/uL PT 14.6 H (10.0-12.5) sec INR 1.4 H (<1.2) Chloride 114 H (98-107) mmol/L Carbon Dioxide 20 L (22-30) mmol/L Glucose 111 H (74-99) mg/dL Calcium (8.7-10.3) mg/dL Magnesium 1.3 L (1.6-2.3) mg/dL Total Bilirubin 1.7 H (0.2-1.3) mg/dL Total Protein 6.0 L (6.3-8.2) g/dL 05/18/24 Range/Units 04:03 WBC (4.50-10.00) X 10*3/uL Hgb (12.0-15.0) g/dL Hct (37.2-46.3) % MCH (27.0-32.0) pg MCHC (32.0-37.0) g/dL RDW (11.5-14.5) % Lymphocytes # (0.90-5.00) X 10*3/uL Monocytes # (0.20-1.00) X 10*3/uL Eosinophils # (0.04-0.35) X 10*3/uL PT (10.0-12.5) sec INR (<1.2) Chloride 112 H (98-107) mmol/L Carbon Dioxide (22-30) mmol/L Glucose 190 H (74-99) mg/dL Calcium 8.6 L (8.7-10.3) mg/dL Magnesium (1.6-2.3) mg/dL Total Bilirubin (0.2-1.3) mg/dL Total Protein (6.3-8.2) g/dL Assessment and Plan Assessment: Acute CHF exacerbation with low ejection fraction 30 to 35% Possible acute asthma exacerbation Acute hypoxic respiratory failure Mild anemia, stable Plan: Continue with IV Solu-Medrol Continue with IV Lasix Continue with Eliquis Protonix for GI prophylaxis DVT prophylaxis with Eliquis Cardiology and pulmonary service following Continue with oxygen therapy Recommend home oxygen evaluation prior to discharge an order was requested a maurice
[2024-05-19] MEDS: PANTOPRAZOLE 40 MG TABLET PO SCH (06:31)
[2024-05-19 08:10] LABS: Basophils # (A) 0 X 10*3/uL (0.00-0.10); Basophils % (A) 0 %; Eosinophils # (A) 0 X 10*3/uL (0.04-0.35); Eosinophils % (A) 0 %; HCT 38.2 % (37.2-46.3); HGB 11.5 g/dL (12.0-15.0); Lymphocytes # (A) 0.64 X 10*3/uL (0.90-5.00); Lymphocytes % (A) 6.8 %; MCHC 30.1 g/dL (32.0-37.0); MCV 86.4 FL (80.0-97.0); Mean Platelet Volume 11.8 FL (9.5-12.2); Monocytes # (A) 0.36 X 10*3/uL (0.20-1.00); Monocytes % (A) 3.9 %; NRBC Per 100 WBC 0 X 10*3/uL (0.00-0.01); Neutrophils # (A) 8.28 X 10*3/uL (1.80-7.70); Neutrophils % (A) 88.6 %; Platelet Count 262 X 10*3/uL (140-440); RBC 4.42 X 10*6/uL (4.10-5.20); RDW 19.4 % (11.5-14.5); WBC 9.35 X 10*3/uL (4.50-10.00)
[2024-05-19 10:04] LABS: BUN/Creat Ratio 25.38 Ratio (12.00-20.00); Blood Urea Nitrogen 20.3 mg/dL (9.0-27.0); Calcium 9.3 mg/dL (8.7-10.3); Carbon Dioxide 26.2 mmol/L (21.6-31.8); Chloride 108 mmol/L (96-109); Glucose 184 mg/dL (70-110); Potassium 5.9 mmol/L (3.5-5.5); Sodium 144 mmol/L (135-145)
[2024-05-19] MEDS: SODIUM ZIRCONIUM CYCLOSILICATE 10 GM PACKET PO ONE (11:28)
--- NOTE | 2024-05-19 12:03 | P.PN ---
Subjective HISTORY OF PRESENT ILLNESS: This is a 69-year-old female with a past medical history significant for atrial fibrillation, coronary artery disease with previous CABG, congestive heart failure, ischemic cardiomyopathy, diabetes, and hyperlipidemia. Patient follows in the office with Dr. Grover. We have been asked to see the patient in consultation for CHF. Patient examined at the bedside. Patient presented to the hospital with a chief complaint of shortness of breath. Patient also reports increased lower extremity edema. Patient is not prescribed any diuretics on an outpatient basis. Patient was found to be in acute CHF and was started on IV diuretics. DIAGNOSTICS: - EKG reveals sinus mechanism with right bundle branch block. - Chest xray chronic changes and cardiomegaly with small to tiny bilateral pleural effusions. No acute pulmonary infiltrate. No significant change from most prior CT.. - Laboratory data: WBC 4.27. Hemoglobin 11.3. Platelet count 204. Sodium 143. Potassium 3.9. BUN 12. Creatinine 0.60. Troponin negative x 1. proBNP 10,000. - Current home cardiac medications include metoprolol succinate 50 mg daily, Lipitor 40 mg daily, Eliquis 5 mg twice a day, amiodarone 200 mg daily. - Most recent echocardiogram obtained in April 2024 revealed ejection fraction 30 to 35% with moderate mitral regurgitation - Cardiac catheterization history: Unknown 05/19/2024 Patient examined this morning at the bedside. Patient currently denies chest pain or pressure. She reports mild shortness of breath this morning. She remains on IV Lasix 40 mg every 12 hours. PHYSICAL EXAM: VITAL SIGNS: Reviewed. GENERAL: Well-developed in no acute distress. HEENT: Head is normocephalic. Pupils are equal, round. Sclerae anicteric. Mucous membranes of the mouth are moist. Neck supple. No JVD or thyromegaly LUNGS: Respirations even and unlabored. Lungs diminished bilaterally HEART: Regular rate and rhythm. S1 and S2 heard. ABDOMEN: Soft. Nondistended. Nontender. EXTREMITIES: Normal range of motion. No clubbing or cyanosis. Peripheral pulses intact. Bilateral lower extremity edema noted NEUROLOGIC: Awake and alert. Oriented x 3. ASSESSMENT: Shortness of breath Acute on chronic heart failure with reduced EF, 30 to 35% Coronary artery disease with previous CABG Ischemic cardiomyopathy Paroxysmal atrial fibrillation Hyperlipidemia Diabetes Thoracic aortic aneurysm Abdominal aortic aneurysm PLAN: No need to repeat echocardiogram as this was performed last month Continue current cardiac medications Continue IV Lasix 40 mg every 12 hours Daily weights, accurate intake and output, and monitoring of kidney function Further recommendations pending patient course Nurse practitioner note has been reviewed by physician. Signing provider agrees with the documented findings, assessment, and plan of care documented by CONCRETE CRAFTSMAN as a scribe. Objective - Vital Signs Vital signs: Vital Signs Temp 97.6 F 05/19/24 07:00 Pulse 60 05/19/24 08:48 Resp 18 05/19/24 08:24 BP 126/60 05/19/24 07:00 Pulse Ox 97 05/19/24 08:24 FiO2 24 05/18/24 08:36 Intake & Output 05/18/24 05/19/24 05/19/24 18:59 06:59 18:59 Intake Total 1298 Balance 1298 Weight 70.08 kg Intake: Oral 1298 Other: Voiding Method Toilet Toilet Toilet # Voids 3 2 - Labs CBC & Chem 7: 05/19/24 05:08 05/19/24 05:08 Labs: Abnormal Lab Results - Last 24 Hours (Table) 05/19/24 05/19/24 Range/Units 05:08 05:08 Hgb 11.5 L (12.0-15.0) g/dL MCH 26.0 L (27.0-32.0) pg MCHC 30.1 L (32.0-37.0) g/dL RDW 19.4 H (11.5-14.5) % Immature Gran # 0.07 H (0.00-0.04) X 10*3/uL Neutrophils # 8.28 H (1.80-7.70) X 10*3/uL Lymphocytes # 0.64 L (0.90-5.00) X 10*3/uL Eosinophils # 0 L (0.04-0.35) X 10*3/uL Potassium 5.9 H (3.5-5.5) mmol/L BUN/Creatinine Ratio 25.38 H (12.00-20.00) Ratio Glucose 184 H (70-110) mg/dL
--- NOTE | 2024-05-19 13:17 | P.PN ---
Subjective Progress Note Date: 05/19/24 This is a pleasant 69-year-old female with a known history of chronic systolic congestive heart failure with an ejection fraction of 15 to 20%, moderate regurgitation, descending thoracic aortic aneurysm, chronic obstructive pulmonary disease, atrial fibrillation anticoagulated with Eliquis, hypertension, hyperlipidemia, former smoker, CVA/TIA who was recently discharged from here on 05/01/2024 following an exacerbation of her systolic congestive heart failure. She presented back to the emergency room today with increasing shortness of breath, cough and congestion. Chest x-ray reveals chronic changes and cardiomegaly with small to tiny bilateral pleural effusions. No acute pulmonary infiltrate. White count 4.2. Hemoglobin 11.3. Platelets 204. INR 1.4. Sodium 143. Potassium 3.9. Bicarb 20. BUN 12. Creatinine 0.60. Glucose 111. Troponin negative x 1. proBNP 10,000. Viral screen negative. She is seen today in consultation in the emergency department. Currently sitting up in a stretcher. Awake and alert in no acute distress. She is dyspneic with conversation. Dyspneic with minimal exertion. O2 saturations in the mid 90s on 2 L/min per nasal cannula. Afebrile. Hemodynamically stable. The patient is seen today May 18, 2024 in follow-up on the regular medical floor. She is currently resting in bed. Awake and alert in no acute distress. Breathing easier today compared to yesterday. She is maintaining O2 saturations in the 90s on 3 L/min per nasal cannula. Still somewhat bronchospastic and wheezy. White count 4.3. Hemoglobin 11.0. Platelets 228. Sodium 144. Potassium 4.6. Bicarb 26. BUN 12. Creatinine 0.8. Glucose 190. She remains on DuoNeb inhalations, Pulmicort and Perforomist inhalations, IV Solu-Medrol. Anticoagulated with Eliquis. Remains on IV diuretics, Lasix 40 mg every 12 hours. No accurate intake and output recorded. The patient is seen today May 19, 2024 in follow-up on the regular medical floor. She is resting comfortably in bed. Awake and alert in no acute distress. Feeling quite a bit better. She is maintaining O2 saturations in the 90s on 3 L/min per nasal cannula. She is afebrile. Hemodynamically stable. White count 9.3. Hemoglobin 11.5. Platelets 262. Sodium 144. Potassium 5.9. Bicarb 26. BUN 20. Creatinine 0.8. Glucose 184. DuoNeb inhalations, Pulmicort and Perforomist inhalations, IV Solu-Medrol. Anticoagulated with Eliquis. Objective - Vital Signs Vital signs: Vital Signs Temp 97.6 F 05/19/24 07:00 Pulse 56 L 05/19/24 12:13 Resp 18 05/19/24 08:24 BP 126/60 05/19/24 07:00 Pulse Ox 97 05/19/24 08:24 FiO2 24 05/18/24 08:36 Intake & Output 05/18/24 05/19/24 05/19/24 18:59 06:59 18:59 Intake Total 1298 Balance 1298 Weight 70.08 kg Intake: Oral 1298 Other: Voiding Method Toilet Toilet Toilet # Voids 3 2 - Exam GENERAL EXAM: Alert, 69-year-old female, resting in bed, on 3 L nasal cannula, in no apparent distress. HEAD: Normocephalic. EYES: Normal reaction of pupils, equal size. NOSE: Clear with pink turbinates. THROAT: No erythema or exudates. NECK: No masses, no JVD. CHEST: No chest wall deformity. LUNGS: Equal air entry with faint end expiratory wheeze, crackles in the bilateral bases. CVS: S1 and S2 normal with no audible murmur, regular rhythm. ABDOMEN: No hepatosplenomegaly, normal bowel sounds, no guarding or rigidity. SPINE: No scoliosis or deformity SKIN: No rashes CENTRAL NERVOUS SYSTEM: No focal deficits, tone is normal in all 4 extremities. EXTREMITIES: There is no peripheral edema. No clubbing, no cyanosis. Peripheral pulses are intact. - Labs CBC & Chem 7: 05/19/24 05:08 05/19/24 05:08 Labs: Abnormal Lab Results - Last 24 Hours (Table) 05/19/24 05/19/24 Range/Units 05:08 05:08 Hgb 11.5 L (12.0-15.0) g/dL MCH 26.0 L (27.0-32.0) pg MCHC 30.1 L (32.0-37.0) g/dL RDW 19.4 H (11.5-14.5) % Immature Gran # 0.07 H (0.00-0.04) X 10*3/uL Neutrophils # 8.28 H (1.80-7.70) X 10*3/uL Lymphocytes # 0.64 L (0.90-5.00) X 10*3/uL Eosinophils # 0 L (0.04-0.35) X 10*3/uL Potassium 5.9 H (3.5-5.5) mmol/L BUN/Creatinine Ratio 25.38 H (12.00-20.00) Ratio Glucose 184 H (70-110) mg/dL Assessment and Plan Assessment: Acute hypoxic respiratory failure secondary to an acute exacerbation of chronic systolic congestive heart failure and an acute exacerbation of chronic obstructive pulmonary disease Severe ischemic cardiomyopathy and LV dysfunction with ejection fraction of 15 to 20% Moderate mitral regurgitation History of atrial fibrillation anticoagulated with Eliquis History of descending thoracic aortic aneurysm, not a surgical candidate Benign essential hypertension Hyperlipidemia Coronary artery disease and previous CABG Former smoker History of CVA/TIA Plan: The patient was seen and evaluated Labs and medications reviewed Transitioned to oral Lasix Continued on DuoNeb inhalations Continued on Pulmicort and Perforomist inhalations Continued on Solu-Medrol Anticoagulated with Eliquis Titrate down the FiO2 as tolerated Chest x-ray in a.m. Probable discharge in a.m. We will continue to follow I have personally seen and examined the patient, performed the documentation and the assessment and plan as written. Number of minutes spent on the visit: 10 Dictation was produced using [employer] dictation software. Please excuse any grammatical, word or spelling errors.
--- NOTE | 2024-05-19 15:03 | P.PN ---
Subjective Progress Note Date: 05/19/24 Peripheral edema improving. Patient evaluated today resting comfortably in bed. She continues on oxygen via nasal cannula at 3 L and currently does not wear any oxygen at home. Patient remains on IV Lasix of 40 mg every 12 hours. Blood work today reveals a white blood cell count 9.35, hemoglobin 11.5, sodium 144 potassium 5.9, BUN of 20.3 creatinine of 0.8. Review of Systems Constitutional: Denied any fatigue denied any fever. Cardio vascular: denied any chest pain, palpitations Gastrointestinal: denied any nausea, vomiting, diarrhea Pulmonary: Denied any shortness of breath cough Neurologic denied any new focal deficits All inpatient medications were reviewed and appropriate changes in these medications as dictated in the interval history and assessment and plan. PHYSICAL EXAMINATION: GENERAL: The patient is alert and oriented x3, not in any acute distress. Well developed, well nourished. HEENT: Pupils are round and equally reacting to light. EOMI. No scleral icterus. No conjunctival pallor. Normocephalic, atraumatic. No pharyngeal erythema. No thyromegaly. CARDIOVASCULAR: S1 and S2 present. No murmurs, rubs, or gallops. PULMONARY: Lungs are diminished no significant wheezing noted ABDOMEN: Soft, nontender, nondistended, normoactive bowel sounds. No palpable organomegaly. MUSCULOSKELETAL: No joint swelling or deformity. EXTREMITIES: No cyanosis, clubbing, or pedal edema. NEUROLOGICAL: Gross neurological examination did not reveal any focal deficits. SKIN: No rashes. Assessment and plan Acute CHF exacerbation with low ejection fraction 30 to 35% Possible acute asthma exacerbation Acute hypoxic respiratory failure Mild anemia, stable Paroxysmal atrial fibrillation GI prophylaxis DVT prophylaxis on Eliquis Full Code Plan Patient remains on IV lasix 40 mg Q12 hour Recommend strict intake and output monitoring Continues on IV solumedrol Repeat chest xray in the AM Pulmonary following Lokelma x 1 given Repeat BMP in the AM The impression and plan of care has been dictated by Felicitas Arango, Nurse Practitioner as directed. Dr. Deidre MD I have performed a history and physical examination and medical decision making of this patient, discussed the same with the dictator, and agree with the dictators assessment and plan as written, documented as a scribe. Based on total visit time, I have performed more than 50% of this visit. Objective - Vital Signs Vital signs: Vital Signs Temp 97.7 F 05/19/24 14:42 Pulse 60 05/19/24 14:42 Resp 17 05/19/24 14:42 BP 121/74 05/19/24 14:42 Pulse Ox 97 05/19/24 14:42 FiO2 24 05/18/24 08:36 Intake & Output 05/18/24 05/19/24 05/19/24 18:59 06:59 18:59 Intake Total 1298 Balance 1298 Weight 70.08 kg Intake: Oral 1298 Other: Voiding Method Toilet Toilet Toilet # Voids 3 2 3 - Labs CBC & Chem 7: 05/19/24 05:08 05/19/24 05:08 Labs: Abnormal Lab Results - Last 24 Hours (Table) 05/19/24 05/19/24 Range/Units 05:08 05:08 Hgb 11.5 L (12.0-15.0) g/dL MCH 26.0 L (27.0-32.0) pg MCHC 30.1 L (32.0-37.0) g/dL RDW 19.4 H (11.5-14.5) % Immature Gran # 0.07 H (0.00-0.04) X 10*3/uL Neutrophils # 8.28 H (1.80-7.70) X 10*3/uL Lymphocytes # 0.64 L (0.90-5.00) X 10*3/uL Eosinophils # 0 L (0.04-0.35) X 10*3/uL Potassium 5.9 H (3.5-5.5) mmol/L BUN/Creatinine Ratio 25.38 H (12.00-20.00) Ratio Glucose 184 H (70-110) mg/dL Assessment and Plan Time with Patient: Less than 30
[2024-05-19] MEDS: methylPREDNISolone SOD SUCCI 40 MG/ML 1 ML VIAL IV SCH (21:08)
[2024-05-20 07:32] VITALS: RESP 17
[2024-05-20 09:23] LABS: Magnesium 1.7 mg/dL (1.5-2.4)
--- NOTE | 2024-05-20 09:24 | XR ---
EXAMINATION TYPE: XR chest 1V portable DATE OF EXAM: 05/20/2024 6:15 AM COMPARISON: 05/17/2024 CLINICAL INDICATION: Female, 69 years old with history of CHF COPD, TECHNIQUE: XR chest 1V portable view(s) obtained. FINDINGS: The heart size is enlarged. The pulmonary vasculature is mildly prominent The lungs are clear. IMPRESSION: 1. Mild volume overload and cardiomegaly may have slight improvement from comparison [facility], , 05/20/2024 9:21 AM
[2024-05-20 09:45] LABS: BUN/Creat Ratio 31.75 Ratio (12.00-20.00); Blood Urea Nitrogen 25.4 mg/dL (9.0-27.0); Calcium 9.1 mg/dL (8.7-10.3); Carbon Dioxide 25.2 mmol/L (21.6-31.8); Chloride 105 mmol/L (96-109); Glucose 165 mg/dL (70-110); Potassium 4.4 mmol/L (3.5-5.5); Sodium 143 mmol/L (135-145)
[2024-05-20] MEDS ORDERED: Magnesium Replacement Protocol 1 EACH MISC MISCELLANE PRN (10:15)
[2024-05-20] MEDS: MAGNESIUM SULFATE-D5W PMX 1 GM in DEXTROSE/WATER 1 100ML.BAG IVPB ONE (11:34)
--- NOTE | 2024-05-20 11:34 | P.PN ---
Subjective Progress Note Date: 05/20/24 This is a pleasant 69-year-old female with a known history of chronic systolic congestive heart failure with an ejection fraction of 15 to 20%, moderate regurgitation, descending thoracic aortic aneurysm, chronic obstructive pulmonary disease, atrial fibrillation anticoagulated with Eliquis, hypertension, hyperlipidemia, former smoker, CVA/TIA who was recently discharged from here on 05/01/2024 following an exacerbation of her systolic congestive heart failure. She presented back to the emergency room today with increasing shortness of breath, cough and congestion. Chest x-ray reveals chronic changes and cardiomegaly with small to tiny bilateral pleural effusions. No acute pulmonary infiltrate. White count 4.2. Hemoglobin 11.3. Platelets 204. INR 1.4. Sodium 143. Potassium 3.9. Bicarb 20. BUN 12. Creatinine 0.60. Glucose 111. Troponin negative x 1. proBNP 10,000. Viral screen negative. She is seen today in consultation in the emergency department. Currently sitting up in a stretcher. Awake and alert in no acute distress. She is dyspneic with conversation. Dyspneic with minimal exertion. O2 saturations in the mid 90s on 2 L/min per nasal cannula. Afebrile. Hemodynamically stable. The patient is seen today May 18, 2024 in follow-up on the regular medical floor. She is currently resting in bed. Awake and alert in no acute distress. Breathing easier today compared to yesterday. She is maintaining O2 saturations in the 90s on 3 L/min per nasal cannula. Still somewhat bronchospastic and wheezy. White count 4.3. Hemoglobin 11.0. Platelets 228. Sodium 144. Potassium 4.6. Bicarb 26. BUN 12. Creatinine 0.8. Glucose 190. She remains on DuoNeb inhalations, Pulmicort and Perforomist inhalations, IV Solu-Medrol. Anticoagulated with Eliquis. Remains on IV diuretics, Lasix 40 mg every 12 hours. No accurate intake and output recorded. The patient is seen today May 19, 2024 in follow-up on the regular medical floor. She is resting comfortably in bed. Awake and alert in no acute distress. Feeling quite a bit better. She is maintaining O2 saturations in the 90s on 3 L/min per nasal cannula. She is afebrile. Hemodynamically stable. White count 9.3. Hemoglobin 11.5. Platelets 262. Sodium 144. Potassium 5.9. Bicarb 26. BUN 20. Creatinine 0.8. Glucose 184. DuoNeb inhalations, Pulmicort and Perforomist inhalations, IV Solu-Medrol. Anticoagulated with Eliquis. The patient is seen today May 20, 2024 in follow-up on the regular medical floor. She is awake and alert in no acute distress. Maintaining O2 saturations in the 90s on 2 L/min per nasal cannula. She has been afebrile. Hemodynamically stable. Follow-up chest x-ray reveals cardiomegaly and improvement in mild volume overload. Sodium 143. Potassium 4.4. Bicarb 25. BUN 25. Creatinine 0.8. Glucose 165. She remains on DuoNeb inhalations, Pulmicort and Perforomist inhalations, Solu-Medrol. Remains on IV diuretics. Anticoagulated with Eliquis. Objective - Vital Signs Vital signs: Vital Signs Temp 97.6 F 05/20/24 07:00 Pulse 69 05/20/24 08:32 Resp 17 05/20/24 07:00 BP 136/68 05/20/24 08:32 Pulse Ox 93 L 05/20/24 08:32 FiO2 24 05/18/24 08:36 Intake & Output 05/19/24 05/20/24 05/20/24 18:59 06:59 18:59 Intake Total 118 Balance 118 Weight 73.4 kg Intake: Oral 118 Other: Voiding Method Toilet Toilet # Voids 3 2 - Exam GENERAL EXAM: Alert, very pleasant 69-year-old female, resting in bed, on 2 L nasal cannula, in no apparent distress. HEAD: Normocephalic. EYES: Normal reaction of pupils, equal size. NOSE: Clear with pink turbinates. THROAT: No erythema or exudates. NECK: No masses, no JVD. CHEST: No chest wall deformity. LUNGS: Equal air entry with faint end expiratory wheeze, crackles in the bilateral bases. CVS: S1 and S2 normal with no audible murmur, regular rhythm. ABDOMEN: No hepatosplenomegaly, normal bowel sounds, no guarding or rigidity. SPINE: No scoliosis or deformity SKIN: No rashes CENTRAL NERVOUS SYSTEM: No focal deficits, tone is normal in all 4 extremities. EXTREMITIES: There is no peripheral edema. No clubbing, no cyanosis. Peripheral pulses are intact. - Labs CBC & Chem 7: 05/19/24 05:08 05/20/24 05:10 Labs: Abnormal Lab Results - Last 24 Hours (Table) 05/20/24 Range/Units 05:10 Anion Gap 12.80 H (4.00-12.00) mmol/L BUN/Creatinine Ratio 31.75 H (12.00-20.00) Ratio Glucose 165 H (70-110) mg/dL Assessment and Plan Assessment: Acute hypoxic respiratory failure secondary to an acute exacerbation of chronic systolic congestive heart failure and an acute exacerbation of chronic obstructive pulmonary disease Severe ischemic cardiomyopathy and LV dysfunction with ejection fraction of 15 to 20% Moderate mitral regurgitation History of atrial fibrillation anticoagulated with Eliquis History of descending thoracic aortic aneurysm, not a surgical candidate Benign essential hypertension Hyperlipidemia Coronary artery disease and previous CABG Former smoker History of CVA/TIA Plan: The patient was seen and evaluated Chest x-ray, labs and medications reviewed Chest x-ray showing improvement Transitioned to oral Lasix Continued on DuoNeb inhalations Discontinue Pulmicort and Perforomist inhalations Add Symbicort 160-4.5 mcg 2 puffs twice daily Discontinue Solu-Medrol Add a prednisone taper Anticoagulated with Eliquis Evaluate for possible home oxygen Cleared for discharge This patient was seen independently by the pulmonary nurse practitioner addressing pulmonary issues I have personally seen and examined the patient, performed the documentation and the assessment and plan as written. Number of minutes spent on the visit: 24 Dictation was produced using [employer] dictation software. Please excuse any grammatical, word or spelling errors.
[2024-05-20 14:47] VITALS: BP 130/64; TEMP 98.3
--- NOTE | 2024-05-20 14:59 | P.PN ---
Subjective Progress Note Date: 05/20/24 This is a 69-year-old female with a past medical history significant for atrial fibrillation, coronary artery disease with previous CABG, congestive heart failure, ischemic cardiomyopathy, diabetes, and hyperlipidemia. Patient follows in the office with Dr. Grover. We have been asked to see the patient in c onsultation for CHF. Patient examined at the bedside. Patient presented to the hospital with a chief complaint of shortness of breath. Patient also reports increased lower extremity edema. Patient is not prescribed any diuretics on an outpatient basis. Patient was found to be in acute CHF and was started on IV diuretics. DIAGNOSTICS: - EKG reveals sinus mechanism with right bundle branch block. - Chest xray from this morning is pending - Laboratory data: WBC 9.35. Hemoglobin 11.5. Platelet count 262. Sodium 144. Potassium 5.9. BUN 20.3. Creatinine 0.80. Troponin negative x 1. proBNP 10,000. - Current cardiac medications include metoprolol succinate 50 mg daily, Lipitor 40 mg daily, Eliquis 5 mg twice a day, amiodarone 200 mg daily. - Most recent echocardiogram obtained in April 2024 revealed ejection fraction 30 to 35% with moderate mitral regurgitation - Cardiac catheterization history: Unknown 05/20/2024 Patient was seen and examined sitting up in bed. Overall she is feeling significantly better. Her breathing is improved. She has no lower extremity edema and denies any orthopnea or PND. PHYSICAL EXAM: VITAL SIGNS: Reviewed. GENERAL: Well-developed in no acute distress. HEENT: Head is normocephalic. Pupils are equal, round. Sclerae anicteric. Mucous membranes of the mouth are moist. Neck supple. No JVD or thyromegaly LUNGS: Respirations even and unlabored. Lungs diminished bilaterally HEART: Regular rate and rhythm. S1 and S2 heard. ABDOMEN: Soft. Nondistended. Nontender. EXTREMITIES: Normal range of motion. No clubbing or cyanosis. Peripheral pulses intact. No peripheral edema noted NEUROLOGIC: Awake and alert. Oriented x 3. ASSESSMENT: Shortness of breath Acute on chronic heart failure with reduced EF, 30 to 35% Coronary artery disease with previous CABG Ischemic cardiomyopathy Paroxysmal atrial fibrillation Hyperlipidemia Diabetes Thoracic aortic aneurysm Abdominal aortic aneurysm PLAN: No need to repeat echocardiogram as this was performed last month Continue current cardiac medications Repeat NT proBNP Daily weights, accurate intake and output, and monitoring of kidney function, electrolytes Add Farxiga Further recommendations pending patient course [employer] note has been reviewed, I agree with a documented findings and plan of care. Patient was seen and examined. Objective - Vital Signs Vital signs: Vital Signs Temp 97.6 F 05/20/24 07:00 Pulse 69 05/20/24 08:32 Resp 17 05/20/24 07:00 BP 136/68 05/20/24 08:32 Pulse Ox 93 L 05/20/24 08:32 FiO2 24 05/18/24 08:36 Intake & Output 05/19/24 05/20/24 05/20/24 18:59 06:59 18:59 Intake Total 118 Balance 118 Weight 73.4 kg Intake: Oral 118 Other: Voiding Method Toilet Toilet # Voids 3 2 - Labs CBC & Chem 7: 05/19/24 05:08 05/20/24 05:10 Labs: Abnormal Lab Results - Last 24 Hours (Table) 05/19/24 Range/Units 05:08 Potassium 5.9 H (3.5-5.5) mmol/L BUN/Creatinine Ratio 25.38 H (12.00-20.00) Ratio Glucose 184 H (70-110) mg/dL
[2024-05-20 15:19] VITALS: PULSE 60
[2024-05-20] MEDS: DAPAGLIFLOZIN PROPANEDIOL 10 MG TABLET PO SCH (15:42)
[2024-05-20] MEDS ORDERED: SYMBICORT 160-4.5 MCG INHALER INHALATION SCH (20:00)
[2024-05-21] MEDS ORDERED: predniSONE 10 MG TAB PO SCH (09:00)
[2024-05-21] MEDS ORDERED: FUROSEMIDE 40 MG TAB PO SCH (09:00)
--- NOTE | 2024-05-22 22:54 | P.DS ---
Providers Date of admission: 05/17/24 15:18 Attending physician: Elizabet Gongora Consults: 05/17/24 14:22 Consult Physician Urgent Consulting Provider: Angelica Ponce Consult Reason/Comments: Asthma exacerbation Do you want consulting provider notified?: Yes Consult Physician Urgent Consulting Provider: Yaquelin Tellez Consult Reason/Comments: CHF Do you want consulting provider notified?: Yes Primary care physician: [facility] Course: Final Diagnosis Acute CHF exacerbation with low ejection fraction 30 to 35% Possible acute asthma exacerbation Acute hypoxic respiratory failure Mild anemia, stable History of paroxysmal atrial fibrillation and took it with Eliquis Former smoker Discharge Disposition Patient is stable for discharge home with overall guarded prognosis. She will continue on oxygen via nasal cannula at 2 L on discharge. She will continue oral Lasix 40 mg daily. Patient will continue a prednisone taper. Patient to follow-up with cardiology and pulmonology on discharge. Hospital Course This is a pleasant 69 years old female with past medical history of multiple medical problems including CHF and asthma. Presents because of shortness of breath. Patient evaluated by pulmonary service and felt to be more CHF rather than asthma however patient was started on IV Solu-Medrol 60 mg and IV Lasix 40 mg twice daily also she is on Eliquis for history of A-fib. Patient said that she started feeling improvement but she still have some exertional dyspnea when she walks. Currently she is on 2 L oxygen saturating 100% but she says she is not on oxygen at home. She denies any chest pain. No abdominal pain or any other GI/ symptom. No headache dizziness weakness numbness. Labs checked looking hemoglobin is 11. Rest of CBC, BMP is unremarkable. INR 1.4. Infl uenza A and type B, RSV, SARS (coronavirus) are undetected. Echocardiogram done showing low ejection fraction at 30 to 35%. proBNP is elevated. EKG showing sinus rhythm at 60 with occasional premature complexes. Chest x-ray showing cardiomegaly with pulmonary vascular congestion and mild bilateral pleural effusion. Patient was admitted to the hospital with cardiology consultation. Patient was started on IV Solu-Medrol and IV Lasix. She diuresed well and her lower extremity edema has improved and she is less short of breath. Her pro BNP was 10,000 on admission and is currently down to 4670. Her chest x-ray reveals mild volume overload with improvement from the comparison. Patient did fail her home oxygen test and will require oxygen via nasal cannula at 2 L on discharge. Patient will continue on oral Lasix 40 mg daily on discharge. She will continue on prednisone taper as well as albuterol and Symbicort inhaler was provided at discharge. Please see medication reconciliation for a list of current medications. Thank you for allowing us to participate in the care of this patient. The impression and plan of care has been dictated by Felicitas Arango, Nurse Practitioner as directed. Dr. Deidre MD I have performed a history and physical examination and medical decision making of this patient, discussed the same with the dictator, and agree with the dictators assessment and plan as written, documented as a scribe. Based on total visit time, I have performed more than 50% of this visit. Patient Condition at Discharge: Fair Plan - Discharge Summary Discharge Rx Participant: Yes New Discharge Prescriptions: New Albuterol Inhaler [Ventolin Hfa Inhaler] 1 puff INHALATION QID PRN #8 gm PRN Reason: Shortness Of Breath Or Wheezing Furosemide [Lasix] 40 mg PO DAILY #30 tab predniSONE 0 mg PO DIRECTED 6 Days #12 tab Pantoprazole [Protonix] 40 mg PO AC-BRKFST #30 tab Continue Nitroglycerin Sl Tabs [Nitrostat] 0.4 mg SL Q5M PRN PRN Reason: Chest Pain Ipratropium-Albuterol Nebulize [Duoneb 0.5 mg-3 mg/3 ml Soln] 3 ml INHALATION RT-Q2H PRN each PRN Reason: Shortness Of Breath Or Wheezing Folic Acid 1 mg PO DAILY #30 tab Atorvastatin [Lipitor] 40 mg PO DAILY #30 tab Apixaban [Eliquis] 5 mg PO BID Amiodarone [Cordarone] 200 mg PO DAILY #30 tab Ipratropium-Albuterol Nebulize [Duoneb 0.5 mg-3 mg/3 ml Soln] 3 ml INHALATION RT-QID #100 each Metoprolol Succinate (ER) [Toprol XL] 50 mg PO DAILY #30 tab Thiamine [Vitamin B-1] 100 mg PO DAILY #30 tab Albuterol Nebulized [Ventolin Nebulized] 2.5 mg INHALATION RT-QID Multivitamins, Thera [Multivitamin (formulary)] 1 tab PO DAILY Budesonide-Formot 160-4.5 Mcg [Symbicort 160-4.5 Mcg Inhaler] 2 puff INHALATION RT-BID #1 each Discharge Medication List Nitroglycerin Sl Tabs [Nitrostat] 0.4 mg SL Q5M PRN 01/16/24 [History] Amiodarone [Cordarone] 200 mg PO DAILY #30 tab 05/01/24 [Rx] Atorvastatin [Lipitor] 40 mg PO DAILY #30 tab 05/01/24 [Rx] Folic Acid 1 mg PO DAILY #30 tab 05/01/24 [Rx] Ipratropium-Albuterol Nebulize [Duoneb 0.5 mg-3 mg/3 ml Soln] 3 ml INHALATION RT-Q2H PRN each 05/01/24 [Rx] Ipratropium-Albuterol Nebulize [Duoneb 0.5 mg-3 mg/3 ml Soln] 3 ml INHALATION RT-QID #100 each 05/01/24 [Rx] Metoprolol Succinate (ER) [Toprol XL] 50 mg PO DAILY #30 tab 05/01/24 [Rx] Thiamine [Vitamin B-1] 100 mg PO DAILY #30 tab 05/01/24 [Rx] Albuterol Nebulized [Ventolin Nebulized] 2.5 mg INHALATION RT-QID 05/17/24 [History] Apixaban [Eliquis] 5 mg PO BID 05/17/24 [History] Multivitamins, Thera [Multivitamin (formulary)] 1 tab PO DAILY 05/17/24 [History] Albuterol Inhaler [Ventolin Hfa Inhaler] 1 puff INHALATION QID PRN #8 gm 05/20/24 [Rx] Budesonide-Formot 160-4.5 Mcg [Symbicort 160-4.5 Mcg Inhaler] 2 puff INHALATION RT-BID #1 each 05/20/24 [Rx] Furosemide [Lasix] 40 mg PO DAILY #30 tab 05/20/24 [Rx] Pantoprazole [Protonix] 40 mg PO AC-BRKFST #30 tab 05/20/24 [Rx] predniSONE 0 mg PO DIRECTED 6 Days #12 tab 05/20/24 [Rx] Follow up Appointment(s)/Referral(s): Angelica Ponce MD [STAFF PHYSICIAN] - 1 Week Sunilkumar,Mini, MD [Primary Care Provider] - 1-2 days Martinez Grover MD [STAFF PHYSICIAN] - 1 Week Ambulatory/Diagnostic Orders: Basic Metabolic Panel [LAB.AMB] Time Frame: 3 Days, Location: None Selected Patient Instructions/Handouts: Heart Failure (DC), Asthma (DC), Hypomagnesemia (DC) Discharge Disposition: HOME SELF-CARE
== END 2024-05-20 18:05 | disposition home or self-care (01) | DRG 291 ==
LOC: EC 12:05 → 6NMEDSUR 15:17 → OBSVTOIN 15:18 → 6NMEDSUR 20:46
PROVIDERS: ADMIT Hospitalist; ATTEND Hospitalist
DX: I11.0 Hypertensive heart disease with heart failure (principal); I50.23 Acute on chronic systolic (congestive) heart failure; J96.01 Acute respiratory failure with hypoxia; J44.1 Chronic obstructive pulmonary disease with (acute) exacerbation; J45.901 Unspecified asthma with (acute) exacerbation; Z79.01 Long term (current) use of anticoagulants; D64.9 Anemia, unspecified; E11.9 Type 2 diabetes mellitus without complications; I71.20 Thoracic aortic aneurysm, without rupture, unspecified; I34.0 Nonrheumatic mitral (valve) insufficiency; I48.20 Chronic atrial fibrillation, unspecified; I25.5 Ischemic cardiomyopathy; E78.5 Hyperlipidemia, unspecified; I25.10 Atherosclerotic heart disease of native coronary artery without angina pectoris; I71.40 Abdominal aortic aneurysm, without rupture, unspecified; Z87.891 Personal history of nicotine dependence; Z79.51 Long term (current) use of inhaled steroids; Z79.899 Other long term (current) drug therapy; Z91.048 Other nonmedicinal substance allergy status; Z95.1 Presence of aortocoronary bypass graft; Z86.73 Personal history of transient ischemic attack (TIA), and cerebral infarction without residual deficits
CPT/HCPCS: 36415; 71045; 71046; 80048; 80053; 83605; 83735; 83880; 84484; 85025; 85610; 85730; 87636; 93005; 94640; 94760; 96365; 96366; 96375; 99285

== ENCOUNTER 2024-05-29 00:36 | Observation (INO) | payer MEDICARE, OTHER ==
--- NOTE | 2024-05-29 00:53 | ED ---
General Adult HPI - General Chief complaint: Shortness of Breath Stated complaint: SOB Time Seen by Provider: 05/29/24 00:50 Source: EMS Mode of arrival: EMS - History of Present Illness Initial comments: Patient is a 69-year-old female past medical history of thoracic aortic aneu rysm, atrial fibrillation on Eliquis, asthma, CHF presenting today for shortness of breath. History is limited as patient does present on BiPAP. States shortness of breath started just shortly prior to arrival. Endorses a cough nonproductive of sputum. Denies hemoptysis. Denies chest pain. Denies recent fevers, abdominal pain nausea vomiting melena or hematochezia - Related Data Home Medications Medication Instructions Recorded Confirmed Nitroglycerin Sl Tabs [Nitrostat] 0.4 mg SL Q5M PRN 01/16/24 05/29/24 Albuterol Nebulized [Ventolin 2.5 mg INHALATION RT-QID 05/17/24 05/29/24 Nebulized] Apixaban [Eliquis] 5 mg PO BID 05/17/24 05/29/24 Multivitamins, Thera [Multivitamin 1 tab PO DAILY 05/17/24 05/29/24 (formulary)] Previous Rx's Medication Instructions Recorded Amiodarone [Cordarone] 200 mg PO DAILY #30 tab 05/01/24 Atorvastatin [Lipitor] 40 mg PO DAILY #30 tab 05/01/24 Folic Acid 1 mg PO DAILY #30 tab 05/01/24 Ipratropium-Albuterol Nebulize 3 ml INHALATION RT-Q2H PRN each 05/01/24 [Duoneb 0.5 mg-3 mg/3 ml Soln] Ipratropium-Albuterol Nebulize 3 ml INHALATION RT-QID #100 each 05/01/24 [Duoneb 0.5 mg-3 mg/3 ml Soln] Thiamine [Vitamin B-1] 100 mg PO DAILY #30 tab 05/01/24 Albuterol Inhaler [Ventolin Hfa 1 puff INHALATION QID PRN #8 gm 05/20/24 Inhaler] Budesonide-Formot 160-4.5 Mcg 2 puff INHALATION RT-BID #1 each 05/20/24 [Symbicort 160-4.5 Mcg Inhaler] Furosemide [Lasix] 40 mg PO DAILY #30 tab 05/20/24 Pantoprazole [Protonix] 40 mg PO AC-BRKFST #30 tab 05/20/24 Acetaminophen Tab [Tylenol] 650 mg PO Q6HR PRN tab 05/30/24 Benzonatate [Tessalon Perles] 100 mg PO TID PRN #30 cap 05/30/24 Metoprolol Tartrate [Lopressor] 50 mg PO TID #90 tab 05/30/24 Allergies Allergy/AdvReac Type Severity Reaction Status Date / Time adhesive Allergy Rash/Hives Verified 05/29/24 08:57 Review of Systems ROS Statement: Those systems with pertinent positive or pertinent negative responses have been documented in the HPI. ROS Other: All systems not noted in ROS Statement are negative. Past Medical History Past Medical History: Atrial Fibrillation, Asthma, Chest Pain / Angina History of Any Multi-Drug Resistant Organisms: None Reported Past Surgical History: No Surgical Hx Reported Additional Past Surgical History / Comment(s): "open heart surgery" Past Anesthesia/Blood Transfusion Reactions: No Reported Reaction Past Psychological History: No Psychological Hx Reported Smoking Status: Former smoker Past Alcohol Use History: None Reported Past Drug Use History: None Reported - Past Family History Father Family Medical History: No Reported History General Exam - General Exam Comments Initial Comments: PE: CONSTITUTIONAL: Mild distress, ill-appearing, nontoxic SKIN: Warm, dry, no jaundice, hives or petechiae EYES: Pupils are equally round, extraocular movements intact without nystagmus, clear conjunctiva, non-icteric sclera HENT: Normocephalic, atraumatic, moist mucus membranes, oropharynx clear without exudates NECK: , Full range of motion, normal appearance PULMONARY: Decreased breath sounds throughout, with scant wheezes bilaterally without rales, rhonchi or stridor, tachypnea, no accessory muscle use CARDIOVASCULAR: Regular rate, rhythm, normal S1 and S2. No appreciated murmurs, rubs or gallops. Strong radial pulses with intact distal perfusion. 1+ bilateral pretibial pitting edema GASTROINTESTINAL: Soft, active bowel sounds throughout, non-tender, non- distended, no palpable masses, no rebound or guarding. No hepatosplenomegaly MUSCULOSKELETAL: Extremities have no gross deformity No calf swelling NEUROLOGIC:_a/o x 3, GCS 15, normal mentation and speech. Moves all extremities x 4 without motor or sensory deficit PSYCHIATRIC:_normal mood and affect, thought process is clear and linear Course Vital Signs 05/29/24 05/29/24 05/29/24 00:39 00:46 00:51 Temperature 97.9 F Pulse Rate 97 Pulse Rate [ Pulse Oximetery ] Respiratory 30 H 26 H Rate Blood Pressure 143/83 Blood Pressure [Right Arm] O2 Sat by Pulse 100 Oximetry Fraction of 70 Inspired Oxygen (FIO2) 05/29/24 05/29/24 05/29/24 01:04 01:07 01:20 Temperature Pulse Rate 86 86 Pulse Rate [ Pulse Oximetery ] Respiratory Rate Blood Pressure Blood Pressure [Right Arm] O2 Sat by Pulse Oximetry Fraction of 50 Inspired Oxygen (FIO2) 05/29/24 05/29/24 05/29/24 01:40 01:51 02:05 Temperature Pulse Rate 88 90 92 Pulse Rate [ Pulse Oximetery ] Respiratory 20 Rate Blood Pressure 137/75 Blood Pressure [Right Arm] O2 Sat by Pulse 100 Oximetry Fraction of Inspired Oxygen (FIO2) 05/29/24 05/29/24 05/29/24 03:43 03:49 03:50 Temperature Pulse Rate 80 84 75 Pulse Rate [ Pulse Oximetery ] Respiratory 18 Rate Blood Pressure 143/62 Blood Pressure [Right Arm] O2 Sat by Pulse 98 Oximetry Fraction of Inspired Oxygen (FIO2) 05/29/24 05/29/24 05/29/24 04:45 06:18 08:00 Temperature Pulse Rate 78 63 64 Pulse Rate [ Pulse Oximetery ] Respiratory 18 18 20 Rate Blood Pressure 82/60 83/60 91/55 Blood Pressure [Right Arm] O2 Sat by Pulse 93 L 94 L 96 Oximetry Fraction of Inspired Oxygen (FIO2) 05/29/24 05/29/24 05/29/24 08:11 08:25 10:00 Temperature Pulse Rate 62 64 60 Pulse Rate [ Pulse Oximetery ] Respiratory 20 Rate Blood Pressure 82/57 Blood Pressure [Right Arm] O2 Sat by Pulse 92 L 100 Oximetry Fraction of Inspired Oxygen (FIO2) 05/29/24 05/29/24 05/29/24 11:09 11:15 11:27 Temperature Pulse Rate 61 70 66 Pulse Rate [ Pulse Oximetery ] Respiratory 20 Rate Blood Pressure 86/63 Blood Pressure [Right Arm] O2 Sat by Pulse 93 L Oximetry Fraction of Inspired Oxygen (FIO2) 05/29/24 05/29/24 05/29/24 12:06 14:55 15:22 Temperature Pulse Rate 71 72 70 Pulse Rate [ Pulse Oximetery ] Respiratory 20 20 Rate Blood Pressure 147/66 119/63 Blood Pressure [Right Arm] O2 Sat by Pulse 93 L 94 L Oximetry Fraction of Inspired Oxygen (FIO2) 05/29/24 05/29/24 05/29/24 15:34 17:53 20:22 Temperature Pulse Rate 72 62 68 Pulse Rate [ Pulse Oximetery ] Respiratory 20 Rate Blood Pressure 135/88 Blood Pressure [Right Arm] O2 Sat by Pulse 94 L Oximetry Fraction of Inspired Oxygen (FIO2) 05/29/24 05/29/24 05/30/24 22:06 23:23 00:00 Temperature 98.3 F 97.8 F Pulse Rate 58 L 93 Pulse Rate [ 112 H Pulse Oximetery ] Respiratory 20 20 20 Rate Blood Pressure 136/98 125/89 Blood Pressure 83/73 [Right Arm] O2 Sat by Pulse 92 L 93 L 92 L Oximetry Fraction of Inspired Oxygen (FIO2) Medical Decision Making - Medical Decision Making Was pt. sent in by a medical professional or institution (, PA, DEBONE PROCESSING SUPERVISOR, urgent care, hospital, or retirement...) When possible be specific @ -No Did you speak to anyone other than the patient for history (EMS, parent, family, police, friend...)? What history was obtained from this source @Spoke with EMS personnel who states patient has history of COPD and CHF wears 3 L oxygen nasal cannula at baseline placed on CPAP and given DuoNebs prior to arrival Did you review nursing and triage notes (agree or disagree)? Why? @ -I reviewed nursing and triage notes-agree with exception of that patient states difficulty breathing was going on x 1 day, when I asked- Were old charts reviewed (outside hosp., previous admission, EMS record, old EKG, old radiological studies, urgent care reports/EKG's, retirement records)? Report findings @ -Medical records reviewed-patient was just discharged on 05/20/2024 after presenting for difficulty in breathing, discharge summary was felt to be more likely due to CHF exacerbation as opposed to asthma exacerbation patient was treated with 40 mg Lasix twice daily and ultimately discharged home on 2 L oxygen nasal cannula Differential Diagnosis (chest pain, altered mental status, abdominal pain women, abdominal pain men, vaginal bleeding, weakness, fever, dyspnea, syncope, headache, dizziness, GI bleed, back pain, seizure, CVA, palpatations, mental health, musculoskeletal)? Differential Dyspnea: Coronary syndrome, arrhythmia, tamponade, asthma, COPD, pulmonary embolism, pneumonia, pneumothorax, pulmonary effusion, anaphylaxis, diabetic ketoacidosis, flailed chest, pulmonary contusion, diaphragmatic rupture, anemia, neuromuscular, this is not meant to be an all-inclusive list. EKG interpreted by me (3pts min.). @ -As above X-rays interpreted by me (1pt min.). @ Chest x-ray appears to show new left middle lobe consolidation, persistent cardiomegaly, compared to chest x-ray performed on 05/20/2024, left middle lobe consolidation appears new from prior read by radiologist as airspace consolidation left mid lower lung field concerning for pneumonia new from prior, agree with radiologist read interpreted CT interpreted by me (1pt min.). Reviewed CT chest, I see no evidence of PE, does appear to show thoracic aneurysm, compared to CT chest obtained in April 2024, as well as CT chest performed in October, this appears stable from prior, agrees radiologist interpretation U/S interpreted by me (1pt. min.). @ -None done What testing was considered but not performed or refused? (CT, X-rays, U/S, labs)? Why? @ -None What meds were considered but not given or refused? Why? @ -None Did you discuss the management of the patient with other professionals (professionals i.e. , PA, DEBONE PROCESSING SUPERVISOR, lab, RT, psych nurse, social work instructor, litigation partner, teacher, founder and chief technical officer, case management rn)? Give summary @ -No Was smoking cessation discussed for >3mins.? @ -No Was critical care preformed (if so, how long)? Yes, 45 minutes Were there social determinants of health that impacted care today? How? (Homelessness, low income, unemployed, alcoholism, drug addiction, tr ansportation, low edu. Level, literacy, decrease access to med. care, intermediate, rehab)? @ -No Was there de-escalation of care discussed even if they declined (Discuss DNR or withdrawal of care, Hospice)? @ -No What co-morbidities impacted this encounter? (DM, HTN, Smoking, COPD, CAD, Cancer, CVA, ARF, Chemo, Hep., AIDS, mental health diagnosis, sleep apnea, morbid obesity)? @ -COPD, CHF, atrial fibrillation on Eliquis Was patient admitted / discharged? Hospital course, mention meds given and route, prescriptions, significant lab abnormalities, going to OR and other pertinent info. Admission-this is a 69-year-old female past medical history as noted above presenting today for shortness of breath. Presents tachypneic, decreased breath sounds throughout, wheezing bilaterally, immediately placed on BiPAP. Work of breathing slowly began to improve after being placed on BiPAP. Pt will receive d uonebs and steroids. Also ordered Rocephin and azithromycin due to worsening/increased oxygen requirement hospitalization. Will obtain broad workup including chest x-ray, D-dimer, troponin, BNP, comprehensive labs anticipate admission On reassessment patient appears much more comfortable on BiPAP, chest x-ray peers to show a new left mid lobe pneumonia. BNP is also elevated approximately 8000. Ordered 40 mg IV lasix. Patient was transitioned down to home 3 L oxygen and continues to breathe comfortably. Will be admitted for pneumonia.Case discussed with Dr. Dominguez, who kindly accepted pt for admission. Undiagnosed new problem with uncertain prognosis? @ -No Drug Therapy requiring intensive monitoring for toxicity (Heparin, Nitro, Insulin, Cardizem)? @ -No Were any procedures done? @ -No Diagnosis/symptom? @ -Bacterial pneumonia, asthma exacerbation, CHF exacerbation Acute, or Chronic, or Acute on Chronic? acute Uncomplicated (without systemic symptoms) or Complicated (systemic symptoms)? @complicated Side effects of treatment? @ -No Exacerbation, Progression, or Severe Exacerbation? exacerbation Poses a threat to life or bodily function? How? (Chest pain, [place], [place], pneumonia, PE, COPD, DKA, ARF, appy, cholecystitis, CVA, Diverticulitis, Homicidal, Suicidal, threat to staff... and all critical care pts) @ -yes - Lab Data Result diagrams: 05/30/24 05:22 05/30/24 05:22 Lab Results 05/29/24 05/29/24 05/29/24 Range/Units 00:54 00:54 00:54 WBC 10.58 H (4.50-10.00) 10*3/uL RBC 4.93 (4.10-5.20) 10*6/uL Hgb 13.0 (12.0-15.0) g/dL Hct 41.1 (37.2-46.3) % MCV 83.4 (80.0-97.0) fL MCH 26.4 L (27.0-32.0) pg MCHC 31.6 L (32.0-37.0) g/dL Plt Count 157 (140-440) 10*3/uL Immature Gran % (Auto) 1.0 % Neutrophils % 76.9 % Lymphocytes % 12.3 % Monocytes % 9.0 % Eosinophils % 0.4 % Basophils % 0.4 % Immature Gran # 0.11 H (0.00-0.04) 10*3/uL Neutrophils # 8.14 H (1.80-7.70) 10*3/uL Lymphocytes # 1.30 (0.90-5.00) 10*3/uL Monocytes # 0.95 (0.20-1.00) 10*3/uL Eosinophils # 0.04 (0.04-0.35) 10*3/uL Basophils # 0.04 (0.00-0.10) 10*3/uL PT 13.1 H (10.0-12.5) sec INR 1.2 H (<1.2) APTT 22.5 (22.0-30.0) sec D-Dimer 2.39 H (<0.60) mg/L FEU Sodium 139 (137-145) mmol/L Potassium 3.6 (3.5-5.1) mmol/L Chloride 104 (98-107) mmol/L Carbon Dioxide 24 (22-30) mmol/L Anion Gap 11 mmol/L BUN 14 (7-17) mg/dL Creatinine 0.86 (0.52-1.04) mg/dL Est GFR (CKD-EPI)AfAm 80 (>60 ml/min/1.73 sqM) Est GFR (CKD-EPI)NonAf 70 (>60 ml/min/1.73 sqM) Glucose 190 H (74-99) mg/dL Plasma Lactic Acid Gentry (0.7-2.0) mmol/L Calcium 8.9 (8.4-10.2) mg/dL Magnesium 1.3 L (1.6-2.3) mg/dL Total Bilirubin 1.8 H (0.2-1.3) mg/dL AST 27 (14-36) U/L ALT 24 (4-34) U/L Alkaline Phosphatase 113 (38-126) U/L Troponin I (0.000-0.034) ng/mL C-Reactive Protein (<1.0) mg/dL NT-Pro-B Natriuret Pep 8180 pg/mL Total Protein 6.3 (6.3-8.2) g/dL Albumin 3.9 (3.5-5.0) g/dL Procalcitonin (0.02-0.50) ng/mL Influenza Type A (PCR) (Not Detectd) Influenza Type B (PCR) (Not Detectd) RSV (PCR) (Not Detectd) SARS-CoV-2 (PCR) (Not Detectd) 05/29/24 05/29/24 05/29/24 Range/Units 00:54 00:54 00:54 WBC (4.50-10.00) 10*3/uL RBC (4.10-5.20) 10*6/uL Hgb (12.0-15.0) g/dL Hct (37.2-46.3) % MCV (80.0-97.0) fL MCH (27.0-32.0) pg MCHC (32.0-37.0) g/dL Plt Count (140-440) 10*3/uL Immature Gran % (Auto) % Neutrophils % % Lymphocytes % % Monocytes % % Eosinophils % % Basophils % % Immature Gran # (0.00-0.04) 10*3/uL Neutrophils # (1.80-7.70) 10*3/uL Lymphocytes # (0.90-5.00) 10*3/uL Monocytes # (0.20-1.00) 10*3/uL Eosinophils # (0.04-0.35) 10*3/uL Basophils # (0.00-0.10) 10*3/uL PT (10.0-12.5) sec INR (<1.2) APTT (22.0-30.0) sec D-Dimer (<0.60) mg/L FEU Sodium (137-145) mmol/L Potassium (3.5-5.1) mmol/L Chloride (98-107) mmol/L Carbon Dioxide (22-30) mmol/L Anion Gap mmol/L BUN (7-17) mg/dL Creatinine (0.52-1.04) mg/dL Est GFR (CKD-EPI)AfAm (>60 ml/min/1.73 sqM) Est GFR (CKD-EPI)NonAf (>60 ml/min/1.73 sqM) Glucose (74-99) mg/dL Plasma Lactic Acid Gentry 1.6 (0.7-2.0) mmol/L Calcium (8.4-10.2) mg/dL Magnesium (1.6-2.3) mg/dL Total Bilirubin (0.2-1.3) mg/dL AST (14-36) U/L ALT (4-34) U/L Alkaline Phosphatase (38-126) U/L Troponin I 0.047 H* (0.000-0.034) ng/mL C-Reactive Protein 4.8 H (<1.0) mg/dL NT-Pro-B Natriuret Pep pg/mL Total Protein (6.3-8.2) g/dL Albumin (3.5-5.0) g/dL Procalcitonin (0.02-0.50) ng/mL Influenza Type A (PCR) (Not Detectd) Influenza Type B (PCR) (Not Detectd) RSV (PCR) (Not Detectd) SARS-CoV-2 (PCR) (Not Detectd) 05/29/24 05/29/24 05/29/24 Range/Units 00:54 02:03 03:55 WBC (4.50-10.00) 10*3/uL RBC (4.10-5.20) 10*6/uL Hgb (12.0-15.0) g/dL Hct (37.2-46.3) % MCV (80.0-97.0) fL MCH (27.0-32.0) pg MCHC (32.0-37.0) g/dL Plt Count (140-440) 10*3/uL Immature Gran % (Auto) % Neutrophils % % Lymphocytes % % Monocytes % % Eosinophils % % Basophils % % Immature Gran # (0.00-0.04) 10*3/uL Neutrophils # (1.80-7.70) 10*3/uL Lymphocytes # (0.90-5.00) 10*3/uL Monocytes # (0.20-1.00) 10*3/uL Eosinophils # (0.04-0.35) 10*3/uL Basophils # (0.00-0.10) 10*3/uL PT (10.0-12.5) sec INR (<1.2) APTT (22.0-30.0) sec D-Dimer (<0.60) mg/L FEU Sodium (137-145) mmol/L Potassium (3.5-5.1) mmol/L Chloride (98-107) mmol/L Carbon Dioxide (22-30) mmol/L Anion Gap mmol/L BUN (7-17) mg/dL Creatinine (0.52-1.04) mg/dL Est GFR (CKD-EPI)AfAm (>60 ml/min/1.73 sqM) Est GFR (CKD-EPI)NonAf (>60 ml/min/1.73 sqM) Glucose (74-99) mg/dL Plasma Lactic Acid Gentry (0.7-2.0) mmol/L Calcium (8.4-10.2) mg/dL Magnesium (1.6-2.3) mg/dL Total Bilirubin (0.2-1.3) mg/dL AST (14-36) U/L ALT (4-34) U/L Alkaline Phosphatase (38-126) U/L Troponin I 0.055 H* (0.000-0.034) ng/mL C-Reactive Protein (<1.0) mg/dL NT-Pro-B Natriuret Pep pg/mL Total Protein (6.3-8.2) g/dL Albumin (3.5-5.0) g/dL Procalcitonin 0.11 (0.02-0.50) ng/mL Influenza Type A (PCR) Not Detected (Not Detectd) Influenza Type B (PCR) Not Detected (Not Detectd) RSV (PCR) Not Detected (Not Detectd) SARS-CoV-2 (PCR) Not Detected (Not Detectd) Disposition Clinical Impression: CHF exacerbation, COPD exacerbation Disposition: ADMITTED IP TO THIS HOSP Condition: Stable
[2024-05-29] MEDS: methylPREDNISolone SOD SUCCI 125 MG/2 ML VIAL IV STA (00:55)
[2024-05-29] MEDS: ALBUTEROL NEBULIZED 2.5 MG/3 ML INHALATION STA (01:03)
[2024-05-29] MEDS: IPRATROPIUM 0.5 MG/2.5 ML NEBU INHALATION STA ×2 (01:04→01:37)
[2024-05-29] MEDS: ALBUTEROL NEBULIZED 2.5 MG/3 ML INHALATION SCH (01:38)
[2024-05-29 01:51] LABS: INR 1.2 (<1.2); Partial Thromboplastin Time 22.5 sec (22.0-30.0); Prothrombin Time 13.1 sec (10.0-12.5)
[2024-05-29 01:52] LABS: ALT 24 U/L (4-34); AST 27 U/L (14-36); African American GFR (CKD) 80 (>60 ml/min/1.73 sqM); Albumin 3.9 g/dL (3.5-5.0); Alkaline Phosphatase 113 U/L (38-126); Anion Gap 11 mmol/L; Blood Urea Nitrogen 14 mg/dL (7-17); Calcium 8.9 mg/dL (8.4-10.2); Carbon Dioxide 24 mmol/L (22-30); Chloride 104 mmol/L (98-107); Glucose 190 mg/dL (74-99); Magnesium 1.3 mg/dL (1.6-2.3); Non-African American GFR(CKD) 70 (>60 ml/min/1.73 sqM); Potassium 3.6 mmol/L (3.5-5.1); Sodium 139 mmol/L (137-145); Total Bilirubin 1.8 mg/dL (0.2-1.3); Total Protein 6.3 g/dL (6.3-8.2)
[2024-05-29 02:00] LABS: Basophils # (A) 0.04 10*3/uL (0.00-0.10); Basophils % (A) 0.4 %; Eosinophils # (A) 0.04 10*3/uL (0.04-0.35); Eosinophils % (A) 0.4 %; HCT 41.1 % (37.2-46.3); Lymphocytes % (A) 12.3 %; MCH 26.4 pg (27.0-32.0); MCHC 31.6 g/dL (32.0-37.0); MCV 83.4 fL (80.0-97.0); Monocytes # (A) 0.95 10*3/uL (0.20-1.00); NT-Pro-B-Type Natriuretic Pept 8180 pg/mL; Neutrophils # (A) 8.14 10*3/uL (1.80-7.70); Neutrophils % (A) 76.9 %; Platelet Count 157 10*3/uL (140-440); RBC 4.93 10*6/uL (4.10-5.20); RDW 19.2 % (11.5-14.5); WBC 10.58 10*3/uL (4.50-10.00)
[2024-05-29] MEDS: AZITHROMYCIN 500 MG in SODIUM CHLORIDE 0.9% 250 ML IVPB STA (02:10)
--- NOTE | 2024-05-29 02:31 | XR ---
EXAM: XR Chest, 1 View CLINICAL HISTORY: ITS.REASON XR Reason: shortness of breath TECHNIQUE: Frontal view of the chest. COMPARISON: CXR May 20, 2024. FINDINGS: Lungs: Airspace consolidation LEFT mid-lower lung field, concerning for pneumonia. Pleural space: Unremarkable. No pneumothorax. Heart: Cardiomegaly. Mediastinum: Unremarkable. Bones/joints: Sternotomy wires. IMPRESSION: Airspace consolidation LEFT mid-lower lung field, concerning for pneumonia. This is new when compared to prior exam.
[2024-05-29 03:20] LABS: Influenza A Not Detected (Not Detectd); Influenza B Not Detected (Not Detectd); RSV Not Detected (Not Detectd)
[2024-05-29] MEDS: FUROSEMIDE 10 MG/ML 4 ML VIAL IV STA (03:37)
[2024-05-29] MEDS: IPRATROPIUM-ALBUTEROL 3 ML NEB INHALATION STA (03:40)
--- NOTE | 2024-05-29 05:59 | CT ---
EXAM: CT Angiography Chest With Intravenous Contrast CLINICAL HISTORY: ITS.REASON CT Reason: Shortness of breath TECHNIQUE: Axial computed tomographic angiography images of the chest with intravenous contrast. CTDI is 10.9 mGy and DLP is 252.6 mGy-cm. This CT exam was performed using one or more of the following dose reduction techniques: automated exposure control, adjustment of the mA and/or kV according to patient size, and/or use of iterative reconstruction technique. MIP reconstructed images were created and reviewed. COMPARISON: X-ray dated 04/25/2024. FINDINGS: Pulmonary arteries: Unremarkable. No pulmonary embolism. Aorta: Stable appearance to descending thoracic aortic dissection. Calcifications are seen within the aorta. Lungs: Bilateral emphysematous changes. Nodularity and groundglass changes are seen within the lingula and right lower lobe. Nodular changes are seen within the left upper lobe. Medial left lower lobe atelectasis. No mass. Pleural space: Unremarkable. No significant effusion. No pneumothorax. Heart: Coronary artery calcifications. Moderate cardiac enlargement. No significant pericardial effusion. No evidence of RV dysfunction. Mediastinum: Soft tissue nodule seen within the upper mediastinum measuring 5.4 x 3.2 cm. Thyroid: Heterogeneous enlargement and calcification seen within the thyroid. Consider thyroid ultrasound for further evaluation. Bones/joints: Degenerative changes are seen within the spine and shoulders. Sternotomy wires are in place. No acute fracture. No dislocation. Soft tissues: Unremarkable. Lymph nodes: Right hilar lymphadenopathy. Liver: Hepatomegaly and hepatic steatosis. IMPRESSION: 1. Grossly stable size of descending thoracic aortic dissection. 2. Confluent and nodular changes seen within the bilateral lungs likely representing underlying infectious or inflammatory process. 3. No pulmonary artery embolism.
[2024-05-29] MEDS ORDERED: ACETAMINOPHEN TAB 325 MG TAB PO PRN (06:59)
[2024-05-29] MEDS ORDERED: NALOXONE 0.4 MG/ML 1 ML VIAL IVP PRN (06:59)
[2024-05-29] MEDS ORDERED: IPRATROPIUM-ALBUTEROL 3 ML NEB INHALATION PRN (06:59)
[2024-05-29] MEDS ORDERED: ALBUTEROL HFA INHALER INHALATION PRN (07:03)
[2024-05-29] MEDS ORDERED: NITROGLYCERIN SL TABS 0.4 MG TAB SUBLINGUAL PRN (07:03)
[2024-05-29] MEDS: IPRATROPIUM-ALBUTEROL 3 ML NEB INHALATION SCH (08:10)
[2024-05-29] MEDS: SYMBICORT 160-4.5 MCG INHALER INHALATION SCH (08:10)
[2024-05-29] MEDS: METOPROLOL SUCCINATE (ER) 50 MG TAB.ER.24H PO SCH (10:03)
[2024-05-29] MEDS: MULTIVITAMINS, THERA 1 EACH TAB PO SCH (10:05)
[2024-05-29] MEDS: AMIODARONE 200 MG TAB PO SCH (10:06)
[2024-05-29] MEDS: PANTOPRAZOLE 40 MG TABLET PO SCH (10:06)
[2024-05-29] MEDS: THIAMINE 100 MG TAB PO SCH (10:06)
[2024-05-29] MEDS: FOLIC ACID 1 MG TAB PO SCH (10:06)
[2024-05-29] MEDS: DOXYCYCLINE 100 MG TABLET PO SCH (10:07)
[2024-05-29] MEDS: ATORVASTATIN 40 MG TAB PO SCH (10:07)
[2024-05-29] MEDS: APIXABAN 5 MG TAB PO SCH (10:07)
[2024-05-29] MEDS: predniSONE 20 MG TAB PO SCH (10:07)
[2024-05-29] MEDS: FUROSEMIDE 40 MG TAB PO SCH (10:07)
[2024-05-29] MEDS ORDERED: guaiFENesin-DM 100-10MG/5ML 10 ML CUP PO PRN (10:14)
--- NOTE | 2024-05-29 10:20 | P.HPIM ---
History of Present Illness Patient is a 69-year-old female came with complaints of shortness of breath and cough has been going on for last few days. Patient denied any fever chills. Patient had history of COPD uses 2 L of oxygen at home does have history of c ongestive heart failure EF of around 30 to 35% does have history of atrial fibrillation on Eliquis. EKG showed right bundle branch block but troponins are mildly elevated to 0.055. Patient denied any chest pain. Patient quit smoking 3 years ago. Patient denied any nausea vomiting hematochezia as patient had elevated D-dimer because of which patient had a CT angio of the chest which showed some nonspecific infiltrates consistent with probably mild pulmonary edema there is no lobar infiltrate or air bronchogram. We are obtaining a procalcitonin level patient's BNP is elevated to 8000 patient had any significant orthopnea or paroxysmal nocturnal dyspnea. Patient received 1 dose of IV Lasix patient is presently on doxycycline received his Rocephin and azithromycin. REVIEW OF SYSTEMS: All other systems are negative except those mentioned in the HPI PHYSICAL EXAMINATION: GENERAL: The patient is alert and oriented x3, not in any acute distress. Well developed, well nourished. HEENT: Pupils are round and equally reacting to light. EOMI. No scleral icterus. No conjunctival pallor. Normocephalic, atraumatic. No pharyngeal erythema. No thyromegaly. CARDIOVASCULAR: S1 and S2 present. No murmurs, rubs, or gallops. PULMONARY: Decreased air entry without any significant wheezing or crackles acute on chronic hypercapnic respiratory failure possibly secondary to COPD exacerbation ABDOMEN: Soft, nontender, nondistended, normoactive bowel sounds. No palpable organomegaly. MUSCULOSKELETAL: No joint swelling or deformity. EXTREMITIES: No cyanosis, clubbing, or pedal edema. NEUROLOGICAL: Gross neurological examination did not reveal any focal deficits. SKIN: No rashes. Assessment and plan Acute on chronic hypercapnic respiratory failure: Secondary to COPD exacerbation. Patient main symptom is cough at this time with use of Robitussin with the dexamethasone improved significantly patient is saturating 100% on 2 L at this time we will try to wean down the oxygen continue with systemic steroids inhalational treatments. Will obtain a procalcitonin level for cough. Clinically patient does not appear to have pneumonia will obtain procalcitonin level CT does not show any lobar infiltrate or bronchogram. Continue with doxycycline Congestive heart failure chronic systolic function EF of around 35% with possible mild acute exacerbation received 1 dose of IV Lasix presently on oral Lasix at home dose which will be continued. - Troponin elevation secondary to hypoxemia type II non-ST elevation [place]. - History of thoracic aortic aneurysm in the past Hypomagnesemia: Magnesium will be replaced-paroxysmal atrial fibrillation presently rate controlled patient will be resumed on Eliquis and rate control medications -Hyperlipidemia DVT prophylaxis: On Eliquis which will be continued Past Medical History Past Medical History: Atrial Fibrillation, Asthma, Chest Pain / Angina History of Any Multi-Drug Resistant Organisms: None Reported Past Surgical History: No Surgical Hx Reported Additional Past Surgical History / Comment(s): "open heart surgery" Past Anesthesia/Blood Transfusion Reactions: No Reported Reaction Past Psychological History: No Psychological Hx Reported Smoking Status: Former smoker Past Alcohol Use History: None Reported Past Drug Use History: None Reported - Past Family History Father Family Medical History: No Reported History Medications and Allergies Home Medications Medication Instructions Recorded Confirmed Type Nitroglycerin Sl Tabs [Nitrostat] 0.4 mg SL Q5M PRN 01/16/24 05/29/24 History Amiodarone [Cordarone] 200 mg PO DAILY #30 tab 05/01/24 05/29/24 Rx Atorvastatin [Lipitor] 40 mg PO DAILY #30 tab 05/01/24 05/29/24 Rx Folic Acid 1 mg PO DAILY #30 tab 05/01/24 05/29/24 Rx Ipratropium-Albuterol Nebulize 3 ml INHALATION RT-Q2H PRN each 05/01/24 05/29/24 Rx [Duoneb 0.5 mg-3 mg/3 ml Soln] Ipratropium-Albuterol Nebulize 3 ml INHALATION RT-QID #100 each 05/01/24 05/29/24 Rx [Duoneb 0.5 mg-3 mg/3 ml Soln] Metoprolol Succinate (ER) [Toprol 50 mg PO DAILY #30 tab 05/01/24 05/29/24 Rx XL] Thiamine [Vitamin B-1] 100 mg PO DAILY #30 tab 05/01/24 05/29/24 Rx Albuterol Nebulized [Ventolin 2.5 mg INHALATION RT-QID 05/17/24 05/29/24 History Nebulized] Apixaban [Eliquis] 5 mg PO BID 05/17/24 05/29/24 History Multivitamins, Thera [Multivitamin 1 tab PO DAILY 05/17/24 05/29/24 History (formulary)] Albuterol Inhaler [Ventolin Hfa 1 puff INHALATION QID PRN #8 gm 05/20/24 05/29/24 Rx Inhaler] Budesonide-Formot 160-4.5 Mcg 2 puff INHALATION RT-BID #1 each 05/20/24 05/29/24 Rx [Symbicort 160-4.5 Mcg Inhaler] Furosemide [Lasix] 40 mg PO DAILY #30 tab 05/20/24 05/29/24 Rx Pantoprazole [Protonix] 40 mg PO AC-BRKFST #30 tab 05/20/24 05/29/24 Rx Allergies Allergy/AdvReac Type Severity Reaction Status Date / Time adhesive Allergy Rash/Hives Verified 05/29/24 08:57 Physical Exam Vitals: Vital Signs Temp Pulse Resp BP Pulse Ox FiO2 05/29/24 10:00 60 20 82/57 100 05/29/24 08:25 64 05/29/24 08:11 62 92 L 05/29/24 08:00 64 20 91/55 96 05/29/24 06:18 63 18 83/60 94 L 05/29/24 04:45 78 18 82/60 93 L 05/29/24 03:50 75 18 143/62 98 05/29/24 03:49 84 05/29/24 03:43 80 05/29/24 02:05 92 20 137/75 100 05/29/24 01:51 90 05/29/24 01:40 88 05/29/24 01:20 86 05/29/24 01:07 50 05/29/24 01:04 86 05/29/24 00:51 26 H 05/29/24 00:46 70 05/29/24 00:39 97.9 F 97 30 H 143/83 100 Intake and Output 05/28/24 05/29/24 05/29/24 22:59 06:59 14:59 Output Total 1100 Balance -1100 Output: Urine 1100 Other: Weight 73.482 kg Results CBC & Chem 7: 05/29/24 00:54 05/29/24 00:54 Labs: Abnormal Lab Results - Last 24 Hours (Table) 05/29/24 05/29/24 05/29/24 Range/Units 00:54 00:54 00:54 WBC 10.58 H (4.50-10.00) 10*3/uL MCH 26.4 L (27.0-32.0) pg MCHC 31.6 L (32.0-37.0) g/dL Immature Gran # 0.11 H (0.00-0.04) 10*3/uL Neutrophils # 8.14 H (1.80-7.70) 10*3/uL PT 13.1 H (10.0-12.5) sec INR 1.2 H (<1.2) D-Dimer 2.39 H (<0.60) mg/L FEU Glucose 190 H (74-99) mg/dL Magnesium 1.3 L (1.6-2.3) mg/dL Total Bilirubin 1.8 H (0.2-1.3) mg/dL Troponin I (0.000-0.034) ng/mL C-Reactive Protein (<1.0) mg/dL 05/29/24 05/29/24 05/29/24 Range/Units 00:54 00:54 03:55 WBC (4.50-10.00) 10*3/uL MCH (27.0-32.0) pg MCHC (32.0-37.0) g/dL Immature Gran # (0.00-0.04) 10*3/uL Neutrophils # (1.80-7.70) 10*3/uL PT (10.0-12.5) sec INR (<1.2) D-Dimer (<0.60) mg/L FEU Glucose (74-99) mg/dL Magnesium (1.6-2.3) mg/dL Total Bilirubin (0.2-1.3) mg/dL Troponin I 0.047 H* 0.055 H* (0.000-0.034) ng/mL C-Reactive Protein 4.8 H (<1.0) mg/dL
[2024-05-29] MEDS: MAGNESIUM SULFATE-D5W PMX 1 GM in DEXTROSE/WATER 1 100ML.BAG IVPB SCH (11:17)
[2024-05-29] MEDS: BENZONATATE 100 MG CAP PO PRN (11:54)
--- NOTE | 2024-05-29 12:01 | P.CRDCN ---
History of Present Illness Consult date: 05/29/24 Consult reason: congestive heart failure History of present illness: This is a 69-year-old female patient of Dr. Arnol Grover with past medical history of coronary artery disease status post bypass surgery performed at [facility] approximately 3 years ago, ischemic cardiomyopathy, diabetes, dyslipidemia, chronic hypoxic respiratory failure on home O2 at 2 L, large thoracic aortic aneurysm, abdominal aortic aneurysm, intramural thrombus. Patient evaluated at [facility] and thought to be not a good surgical candidate. We have been asked to evaluate the patient for CHF. Blood pressure 86/63, heart rate in the 60s, pulse ox 93% on 2 L nasal cannula. Pulmonary medicine is on consult for pneumonia and COPD. -EKG: Sinus rhythm with right bundle branch block. -Chest x-ray: Airspace consolidation left mid lower lung field concerning for pneumonia. -CTA chest: Stable descending thoracic aortic dissection. Confluent and nodular changes seen within the bilateral lungs likely representing infection or inflammatory process. No pulmonary artery embolism. -Laboratory studies: WBC 10.5, hemoglobin 13, D-dimer 2.39. Electrolytes and renal function are normal. Troponin 0.047 and 0.055. proBNP 8180. Cepheid viral panel not detected. -Home cardiac medications: Amiodarone 200 mg daily, Eliquis 5 mg twice daily, Lasix 40 mg daily, Toprol XL 50 mg daily, Nitrostat as needed. -Echocardiogram performed 02/21/2024 reveals EF of 15 to 20%, moderate to severe mitral regurgitation, mild to moderate tricuspid regurgitation. - Limited echocardiogram performed 04/28/2024 revealed EF of 35%. Atypical septal motion and inferior wall hypokinesia of a severe degree. Moderate mitral regurgitation eccentric. No pericardial effusion. Review Of Systems: At the time of my exam: CONSTITUTIONAL: Denies fever or chills. HEENT: Denies blurred vision, vision changes, or eye pain. Denies hemoptysis CARDIOVASCULAR: Denies chest pain. Denies orthopnea. Denies PND. Denies palpitations RESPIRATORY: Denies shortness of breath. Reports cough. GASTROINTESTINAL: Denies abdominal pain. Denies nausea or vomiting. HEMATOLOGIC: Denies bleeding disorders. GENITOURINARY: Denies any blood in urine. SKIN: Denies puritis. Denies rash. Physical exam: Gen: This is a 69-year-old black female in no acute distress. VS: reviewed HEENT: Head is atraumatic, normocephalic. Pupils equal, round. Sclerae is anicteric. NECK: Supple. No JVD. LUNGS: Bilateral rhonchi. No intercostal retractions. HEART: Regular rate and rhythm. Systolic murmur. ABDOMEN: Soft No tenderness. EXTREMITIES: No pedal edema. No calf tenderness. NEUROLOGICAL: Patient is awake, alert and oriented x3. Assessment: Elevated troponins with flat pattern not indicative of acute coronary syndrome Possible pneumonia COPD exacerbation Paroxysmal atrial fibrillation in sinus rhythm Ischemic cardiomyopathy Chronic systolic heart failure with previous EF of 15 to 20% improved to 35% History of coronary artery disease status post CABG Thoracic aortic aneurysm patient not a candidate for surgery or endovascular procedure determined by [facility] Hyperlipidemia Moderate to severe mitral regurgitation and mild to moderate tricuspid regurgitation Chronic hypoxic respiratory failure on home O2 at 2 L Plan: Resume patient's home cardiac medications No need to repeat echocardiogram Further recommendations to follow based upon clinical course At the time of discharge, patient will follow-up in the office with Dr. Arnol Grover in 1 to 2 weeks. Thank you kindly for this consultation. Nurse practitioner note has been reviewed, I agree with documented findings and plan of care. Patient was seen and examined. Past Medical History Past Medical History: Atrial Fibrillation, Asthma, Chest Pain / Angina History of Any Multi-Drug Resistant Organisms: None Reported Past Surgical History: No Surgical Hx Reported Additional Past Surgical History / Comment(s): "open heart surgery" Past Anesthesia/Blood Transfusion Reactions: No Reported Reaction Past Psychological History: No Psychological Hx Reported Smoking Status: Former smoker Past Alcohol Use History: None Reported Past Drug Use History: None Reported - Past Family History Father Family Medical History: No Reported History Medications and Allergies Home Medications Medication Instructions Recorded Confirmed Type Nitroglycerin Sl Tabs [Nitrostat] 0.4 mg SL Q5M PRN 01/16/24 05/29/24 History Amiodarone [Cordarone] 200 mg PO DAILY #30 tab 05/01/24 05/29/24 Rx Atorvastatin [Lipitor] 40 mg PO DAILY #30 tab 05/01/24 05/29/24 Rx Folic Acid 1 mg PO DAILY #30 tab 05/01/24 05/29/24 Rx Ipratropium-Albuterol Nebulize 3 ml INHALATION RT-Q2H PRN each 05/01/24 05/29/24 Rx [Duoneb 0.5 mg-3 mg/3 ml Soln] Ipratropium-Albuterol Nebulize 3 ml INHALATION RT-QID #100 each 05/01/24 05/29/24 Rx [Duoneb 0.5 mg-3 mg/3 ml Soln] Metoprolol Succinate (ER) [Toprol 50 mg PO DAILY #30 tab 05/01/24 05/29/24 Rx XL] Thiamine [Vitamin B-1] 100 mg PO DAILY #30 tab 05/01/24 05/29/24 Rx Albuterol Nebulized [Ventolin 2.5 mg INHALATION RT-QID 05/17/24 05/29/24 History Nebulized] Apixaban [Eliquis] 5 mg PO BID 05/17/24 05/29/24 History Multivitamins, Thera [Multivitamin 1 tab PO DAILY 05/17/24 05/29/24 History (formulary)] Albuterol Inhaler [Ventolin Hfa 1 puff INHALATION QID PRN #8 gm 05/20/24 05/29/24 Rx Inhaler] Budesonide-Formot 160-4.5 Mcg 2 puff INHALATION RT-BID #1 each 05/20/24 05/29/24 Rx [Symbicort 160-4.5 Mcg Inhaler] Furosemide [Lasix] 40 mg PO DAILY #30 tab 05/20/24 05/29/24 Rx Pantoprazole [Protonix] 40 mg PO AC-BRKFST #30 tab 05/20/24 05/29/24 Rx Allergies Allergy/AdvReac Type Severity Reaction Status Date / Time adhesive Allergy Rash/Hives Verified 05/29/24 08:57 Physical Exam Vitals: Vital Signs Temp Pulse Resp BP Pulse Ox FiO2 05/29/24 08:25 64 05/29/24 08:11 62 92 L 05/29/24 08:00 64 20 91/55 96 05/29/24 06:18 63 18 83/60 94 L 05/29/24 04:45 78 18 82/60 93 L 05/29/24 03:50 75 18 143/62 98 05/29/24 03:49 84 05/29/24 03:43 80 05/29/24 02:05 92 20 137/75 100 05/29/24 01:51 90 05/29/24 01:40 88 05/29/24 01:20 86 05/29/24 01:07 50 05/29/24 01:04 86 05/29/24 00:51 26 H 05/29/24 00:46 70 05/29/24 00:39 97.9 F 97 30 H 143/83 100 Intake and Output 05/28/24 05/29/24 05/29/24 22:59 06:59 14:59 Output Total 1100 Balance -1100 Output: Urine 1100 Other: Weight 73.482 kg Results 05/29/24 00:54 05/29/24 00:54 Cardiac Enzymes 05/29/24 05/29/24 05/29/24 Range/Units 00:54 00:54 03:55 AST 27 (14-36) U/L Troponin I 0.047 H* 0.055 H* (0.000-0.034) ng/mL Coagulation 05/29/24 Range/Units 00:54 PT 13.1 H (10.0-12.5) sec APTT 22.5 (22.0-30.0) sec CBC 05/29/24 Range/Units 00:54 WBC 10.58 H (4.50-10.00) 10*3/uL RBC 4.93 (4.10-5.20) 10*6/uL Hgb 13.0 (12.0-15.0) g/dL Hct 41.1 (37.2-46.3) % Plt Count 157 (140-440) 10*3/uL Comprehensive Metabolic Panel 05/29/24 Range/Units 00:54 Sodium 139 (137-145) mmol/L Potassium 3.6 (3.5-5.1) mmol/L Chloride 104 (98-107) mmol/L Carbon Dioxide 24 (22-30) mmol/L BUN 14 (7-17) mg/dL Creatinine 0.86 (0.52-1.04) mg/dL Glucose 190 H (74-99) mg/dL Calcium 8.9 (8.4-10.2) mg/dL AST 27 (14-36) U/L ALT 24 (4-34) U/L Alkaline Phosphatase 113 (38-126) U/L Total Protein 6.3 (6.3-8.2) g/dL Albumin 3.9 (3.5-5.0) g/dL Current Medications Generic Name Dose Route Start Last Admin Trade Name Freq PRN Reason Stop Dose Admin Acetaminophen 650 mg 05/29/24 06:59 Acetaminophen Tab 325 Mg Tab PO Q6HR PRN Mild Pain or Fever > 100.5 Albuterol/Ipratropium 3 ml 05/29/24 08:00 05/29/24 08:10 Ipratropium-Albuterol 3 Ml Neb INHALATION 3 ml RT-QID KAREL Administration Albuterol/Ipratropium 3 ml 05/29/24 06:59 Ipratropium-Albuterol 3 Ml Neb INHALATION RT-Q2H PRN Shortness Of Breath Or Wheezing Amiodarone HCl 200 mg 05/29/24 09:00 Amiodarone 200 Mg Tab PO DAILY [facility] Apixaban 5 mg 05/29/24 09:00 Apixaban 5 Mg Tab PO BID [facility] Protocol Atorvastatin Calcium 40 mg 05/29/24 09:00 Atorvastatin 40 Mg Tab PO DAILY [facility] Benzonatate 100 mg 05/29/24 06:59 Benzonatate 100 Mg Cap PO TID PRN Cough Budesonide/Formoterol Fumarate 2 puff 05/29/24 08:00 05/29/24 08:10 Symbicort 160-4.5 Mcg Inhaler INHALATION 2 puff RT-BID [facility] Administration Doxycycline Hyclate 100 mg 05/29/24 09:00 Doxycycline 100 Mg Tablet PO 06/02/24 21:01 BID [facility] Protocol Folic Acid 1 mg 05/29/24 09:00 Folic Acid 1 Mg Tab PO DAILY [facility] Furosemide 40 mg 05/29/24 09:00 Furosemide 40 Mg Tab PO DAILY [facility] Metoprolol Succinate 50 mg 05/29/24 09:00 Metoprolol Succinate (Er) 50 Mg Tab.Er.24h PO DAILY [facility] Multivitamins 1 each 05/29/24 09:00 Multivitamins, Thera 1 Each Tab PO DAILY [facility] Naloxone HCl 0.2 mg 05/29/24 06:59 Naloxone 0.4 Mg/Ml 1 Ml Vial IVP Q2M PRN Opioid Reversal Nitroglycerin 0.4 mg 05/29/24 07:03 Nitroglycerin Sl Tabs 0.4 Mg Tab SUBLINGUAL Q5M PRN Chest Pain Pantoprazole Sodium 40 mg 05/29/24 07:30 Pantoprazole 40 Mg Tablet PO AC-BRKFST KAREL Prednisone 40 mg 05/29/24 09:00 Prednisone 20 Mg Tab PO 06/02/24 09:01 DAILY KAREL Thiamine HCl 100 mg 05/29/24 09:00 Thiamine 100 Mg Tab PO DAILY KAREL Intake and Output 05/28/24 05/29/24 05/29/24 22:59 06:59 14:59 Output Total 1100 Balance -1100 Output: Urine 1100 Other: Weight 73.482 kg 05/29/24 00:54 05/29/24 00:54
[2024-05-29] MEDS: methylPREDNISolone SOD SUCCI 125 MG/2 ML VIAL IV SCH (13:46)
--- NOTE | 2024-05-29 14:39 | P.DS ---
Providers Date of admission: 05/29/24 07:02 Attending physician: Greg Dominguez MD Consults: 05/29/24 06:59 Consult Physician Routine Consulting Provider: Warren Burns Consult Reason/Comments: COPD Do you want consulting provider notified?: Yes, Notify in am Consult Physician Routine Consulting Provider: [facility] Consult Reason/Comments: CHF Do you want consulting provider notified?: Yes, Notify in am Primary care physician: [facility] Course: Patient left on AMA. Plan - Discharge Summary New Discharge Prescriptions: No Action Nitroglycerin Sl Tabs [Nitrostat] 0.4 mg SL Q5M PRN PRN Reason: Chest Pain Ipratropium-Albuterol Nebulize [Duoneb 0.5 mg-3 mg/3 ml Soln] 3 ml INHALATION RT-Q2H PRN each PRN Reason: Shortness Of Breath Or Wheezing Folic Acid 1 mg PO DAILY #30 tab Atorvastatin [Lipitor] 40 mg PO DAILY #30 tab Apixaban [Eliquis] 5 mg PO BID Albuterol Inhaler [Ventolin Hfa Inhaler] 1 puff INHALATION QID PRN #8 gm PRN Reason: Shortness Of Breath Or Wheezing Amiodarone [Cordarone] 200 mg PO DAILY #30 tab Ipratropium-Albuterol Nebulize [Duoneb 0.5 mg-3 mg/3 ml Soln] 3 ml INHALATION RT-QID #100 each Metoprolol Succinate (ER) [Toprol XL] 50 mg PO DAILY #30 tab Thiamine [Vitamin B-1] 100 mg PO DAILY #30 tab Albuterol Nebulized [Ventolin Nebulized] 2.5 mg INHALATION RT-QID Multivitamins, Thera [Multivitamin (formulary)] 1 tab PO DAILY Furosemide [Lasix] 40 mg PO DAILY #30 tab Pantoprazole [Protonix] 40 mg PO AC-BRKFST #30 tab Budesonide-Formot 160-4.5 Mcg [Symbicort 160-4.5 Mcg Inhaler] 2 puff INHALATION RT-BID #1 each Discharge Medication List Nitroglycerin Sl Tabs [Nitrostat] 0.4 mg SL Q5M PRN 01/16/24 [History] Amiodarone [Cordarone] 200 mg PO DAILY #30 tab 05/01/24 [Rx] Atorvastatin [Lipitor] 40 mg PO DAILY #30 tab 05/01/24 [Rx] Folic Acid 1 mg PO DAILY #30 tab 05/01/24 [Rx] Ipratropium-Albuterol Nebulize [Duoneb 0.5 mg-3 mg/3 ml Soln] 3 ml INHALATION RT-Q2H PRN each 05/01/24 [Rx] Ipratropium-Albuterol Nebulize [Duoneb 0.5 mg-3 mg/3 ml Soln] 3 ml INHALATION RT-QID #100 each 05/01/24 [Rx] Metoprolol Succinate (ER) [Toprol XL] 50 mg PO DAILY #30 tab 05/01/24 [Rx] Thiamine [Vitamin B-1] 100 mg PO DAILY #30 tab 05/01/24 [Rx] Albuterol Nebulized [Ventolin Nebulized] 2.5 mg INHALATION RT-QID 05/17/24 [History] Apixaban [Eliquis] 5 mg PO BID 05/17/24 [History] Multivitamins, Thera [Multivitamin (formulary)] 1 tab PO DAILY 05/17/24 [History] Albuterol Inhaler [Ventolin Hfa Inhaler] 1 puff INHALATION QID PRN #8 gm 05/20/24 [Rx] Budesonide-Formot 160-4.5 Mcg [Symbicort 160-4.5 Mcg Inhaler] 2 puff INHALATION RT-BID #1 each 05/20/24 [Rx] Furosemide [Lasix] 40 mg PO DAILY #30 tab 05/20/24 [Rx] Pantoprazole [Protonix] 40 mg PO AC-BRKFST #30 tab 05/20/24 [Rx] Follow up Appointment(s)/Referral(s): Lorenza Christopher MD [Primary Care Provider] - 1-2 days
--- NOTE | 2024-05-29 15:27 | P.CNPUL ---
History of Present Illness Consult date: 05/29/24 Reason for consult: dyspnea, COPD History of present illness: This is a 69-year-old female patient who was brought to the emergency department with worsening shortness of breath of few days duration. The patient has increased cough and congestion and some increased wheezing and her presentation was typical of an acute COPD exacerbation. She does have extensive number of comorbidities as mentioned below. The workup in the emergency department showed a negative viral screen. proBNP level was elevated at 8180. Troponins were minimally elevated at 0.04 and 0.05 respectively and the patient is free of any chest pain. Electrolytes are normal. BUN is at 40 with a creatinine of 0.8. The white cell count is at 10.5 with a hemoglobin of 13 and a platelet count of 157. INR is 1.2 with a PT of 13.1 and a PTT of 22. EKG done in the emergency department was normal sinus rhythm and the patient also had a right bundle sivan block pattern. This patient is known to have chronic systolic heart failure with impaired ejection fraction of 15 to 20%. She is known to have COPD, hypertension, hyperlipidemia, coronary artery disease and she has undergone previous bypass surgery. She has ischemic cardiomyopathy and a ejection fraction from February 2024 showed 15 to 20% and the patient has moderate to severe mitral regurgitation along with mild to moderate tricuspid regurgitation. She has a descending thoracic aortic aneurysm and report that she is not a candidate for surgery due to her comorbidities. She also has history of paroxysmal atrial fibrillation. As stated, her current cardiac rhythm is sinus. The patient was hospitalized. Started on Symbicort. Start on DuoNeb updrafts. Started on IV Solu-Medrol. Rest of the home medication resumed including her long-term anticoagulants. CT of the chest on 05/29/2024 showed no evidence of any aortic dissection. Background and physiologic changes bilaterally. No evidence of any pulmonary embolism. Nonspecific nodular changes bilaterally. Review of Systems Constitutional: Reports fatigue Eyes: denies as per HPI, denies blurred vision, denies bulging eye, denies decreased vision, denies diplopia, denies discharge, denies dry eye, denies irritation, denies itching, denies pain, denies photophobia, denies loss of peripheral vision, denies loss of vision, denies tunnel vision/blind spots Ears: deny: decreased hearing, ear discharge, earache, tinnitus Ears, nose, mouth and throat: Reports as per HPI Breasts: absent: as per HPI, change in shape, gynecomastia, masses, nipple discharge, pain, skin changes, swelling Cardiovascular: Reports dyspnea on exertion, Reports orthopnea, Reports shortness of breath Respiratory: Reports cough, Reports cough with sputum, Reports dyspnea, Reports excessive sputum, Reports wheezing Gastrointestinal: Reports as per HPI Genitourinary: Reports as per HPI Menstruation: Reports as per HPI Musculoskeletal: Reports as per HPI Musculoskeletal: absent: ankle pain, ankle stiffness, ankle swelling, as per HPI, elbow pain, elbow stiffness, elbow swelling, foot pain, foot stiffness, foot swelling, hand pain, hand stiffness, hand swelling, hip pain, hip stiffness, hip swelling, knee pain, knee stiffness, knee swelling, shoulder pain, shoulder stiffness, shoulder swelling, wrist pain, wrist stiffness, wrist swelling Neurological: Reports as per HPI Psychiatric: Reports as per HPI Endocrine: Reports as per HPI Hematologic/Lymphatic: Reports as per HPI Allergic/Immunologic: Reports as per HPI Past Medical History Past Medical History: Atrial Fibrillation, Coronary Artery Disease (CAD) (With previous bypass surgery), Chest Pain / Angina, Heart Failure, COPD, Hyperlipidemia, Hypertension History of Any Multi-Drug Resistant Organisms: None Reported Past Surgical History: No Surgical Hx Reported Additional Past Surgical History / Comment(s): Previous coronary artery bypass surgery Past Anesthesia/Blood Transfusion Reactions: No Reported Reaction Past Psychological History: No Psychological Hx Reported Smoking Status: Former smoker Past Alcohol Use History: None Reported Past Drug Use History: None Reported - Past Family History Father Family Medical History: No Reported History Medications and Allergies Home Medications Medication Instructions Recorded Confirmed Type Nitroglycerin Sl Tabs [Nitrostat] 0.4 mg SL Q5M PRN 01/16/24 05/29/24 History Amiodarone [Cordarone] 200 mg PO DAILY #30 tab 05/01/24 05/29/24 Rx Atorvastatin [Lipitor] 40 mg PO DAILY #30 tab 05/01/24 05/29/24 Rx Folic Acid 1 mg PO DAILY #30 tab 05/01/24 05/29/24 Rx Ipratropium-Albuterol Nebulize 3 ml INHALATION RT-Q2H PRN each 05/01/24 05/29/24 Rx [Duoneb 0.5 mg-3 mg/3 ml Soln] Ipratropium-Albuterol Nebulize 3 ml INHALATION RT-QID #100 each 05/01/24 05/29/24 Rx [Duoneb 0.5 mg-3 mg/3 ml Soln] Metoprolol Succinate (ER) [Toprol 50 mg PO DAILY #30 tab 05/01/24 05/29/24 Rx XL] Thiamine [Vitamin B-1] 100 mg PO DAILY #30 tab 05/01/24 05/29/24 Rx Albuterol Nebulized [Ventolin 2.5 mg INHALATION RT-QID 05/17/24 05/29/24 History Nebulized] Apixaban [Eliquis] 5 mg PO BID 05/17/24 05/29/24 History Multivitamins, Thera [Multivitamin 1 tab PO DAILY 05/17/24 05/29/24 History (formulary)] Albuterol Inhaler [Ventolin Hfa 1 puff INHALATION QID PRN #8 gm 05/20/24 05/29/24 Rx Inhaler] Budesonide-Formot 160-4.5 Mcg 2 puff INHALATION RT-BID #1 each 05/20/24 05/29/24 Rx [Symbicort 160-4.5 Mcg Inhaler] Furosemide [Lasix] 40 mg PO DAILY #30 tab 05/20/24 05/29/24 Rx Pantoprazole [Protonix] 40 mg PO AC-BRKFST #30 tab 05/20/24 05/29/24 Rx Allergies Allergy/AdvReac Type Severity Reaction Status Date / Time adhesive Allergy Rash/Hives Verified 05/29/24 08:57 Physical Exam Vitals: Vital Signs Temp Pulse Resp BP Pulse Ox FiO2 05/29/24 11:27 66 05/29/24 11:15 70 05/29/24 11:09 61 20 86/63 93 L 05/29/24 10:00 60 20 82/57 100 05/29/24 08:25 64 05/29/24 08:11 62 92 L 05/29/24 08:00 64 20 91/55 96 05/29/24 06:18 63 18 83/60 94 L 05/29/24 04:45 78 18 82/60 93 L 05/29/24 03:50 75 18 143/62 98 05/29/24 03:49 84 05/29/24 03:43 80 05/29/24 02:05 92 20 137/75 100 05/29/24 01:51 90 05/29/24 01:40 88 05/29/24 01:20 86 05/29/24 01:07 50 05/29/24 01:04 86 05/29/24 00:51 26 H 05/29/24 00:46 70 05/29/24 00:39 97.9 F 97 30 H 143/83 100 Intake and Output 05/28/24 05/29/24 05/29/24 22:59 06:59 14:59 Output Total 1100 Balance -1100 Output: Urine 1100 Other: Weight 73.482 kg GENERAL EXAM: Alert, 69-year-old -[place] female, on 2 L/min nasal cannula. Comfortable in no apparent distress. HEAD: Normocephalic and atraumatic EYES: Normal reaction of pupils, equal size. NOSE: Clear with pink turbinates. THROAT: No erythema or exudates. NECK: No masses, no JVD. CHEST: No chest wall deformity. LUNGS: Equal air entry with no crackles, wheeze, rhonchi or dullness. On 2 L/min nasal cannula. SpO2 reading 92%. No conversational dyspnea or accessory muscle use.. CVS: Tachycardic with a regular S1-S2, consider sinus tachycardia versus a flutter with no audible murmur, irregular rhythm. No extra heart sounds ABDOMEN: No hepatosplenomegaly, active bowel sounds, no guarding or rigidity. SPINE: No scoliosis or deformity SKIN: No rashes CENTRAL NERVOUS SYSTEM: No focal deficits, tone is normal in all 4 extremities. EXTREMITIES: There is no peripheral edema, clubbing, or cyanosis. Peripheral pulses are intact. Results - Laboratory Findings CBC and BMP: 05/29/24 00:54 05/29/24 00:54 PT/INR, D-dimer PT 13.1 sec (10.0-12.5) H 05/29/24 00:54 INR 1.2 (<1.2) H 05/29/24 00:54 D-Dimer 2.39 mg/L FEU (<0.60) H 05/29/24 00:54 Abnormal lab findings: Abnormal Labs 05/29/24 05/29/24 05/29/24 00:54 00:54 00:54 WBC 10.58 H MCH 26.4 L MCHC 31.6 L Immature Gran # 0.11 H Neutrophils # 8.14 H PT 13.1 H INR 1.2 H D-Dimer 2.39 H Glucose 190 H Magnesium 1.3 L Total Bilirubin 1.8 H Troponin I C-Reactive Protein 05/29/24 05/29/24 05/29/24 00:54 00:54 03:55 WBC MCH MCHC Immature Gran # Neutrophils # PT INR D-Dimer Glucose Magnesium Total Bilirubin Troponin I 0.047 H* 0.055 H* C-Reactive Protein 4.8 H - Diagnostic Findings Chest x-ray: image reviewed Assessment and Plan Plan: Acute exacerbation of chronic COPD with secondary shortness of breath. No evidence of any pneumonia. The viral screen has been negative. Acute hypoxic respiratory failure in the patient is currently on 2 L of oxygen by nasal cannula Acute on chronic dyspnea. The patient's chronic shortness of breath is multifactorial including her COPD and CHF. Acute decompensation seems to be more consistent with COPD exacerbation. Paroxysmal atrial fibrillation, maintained on long-term anticoagulation with Eliquis. The patient is also on beta-blockers and amiodarone. Chronic systolic congestive heart failure, ischemic cardiomyopathy with an EF of around 15 to 20% Valvular heart disease with moderate to severe mitral regurgitation and mild to moderate tricuspid regurgitation. This is based on echocardiogram that was done in February 2024 and this is in addition to impaired LV function with ejection fraction of 15 to 20%. Hypertension History of hyperlipidemia History of coronary artery disease with previous CABG History of descending thoracic aortic aneurysm, reportedly not a surgical candidate Former tobacco smoker Plan Titrate oxygen flow to maintain saturation above 90%, currently on 2 L Continue DuoNeb nebulized treatments [id number] IV Solu-Medrol 60 mg every 6 hours Sputum sample if possible Continue Symbicort as maintenance regarding her COPD Patient is a former smoker Continue metoprolol XL 50 mg p.o. daily in combination with amiodarone 10 mg p.o. daily. The patient is also on long-term anticoagulation with Eliquis. Continue Lasix 40 mg p.o. daily proBNP is elevated if there is no obvious signs of decompensated heart failure we will continue same medications CT of the chest was reviewed and there is no evidence of thoracic aortic dissec tion. No evidence of any pulmonary embolism. There is bilateral emphysematous change bilaterally and some chronic nodularity involving the lingula and the right lower lobe and the left upper lobe.
[2024-05-30 00:01] LABS: Glucose,Whole Blood 213 mg/dL (70-110)
[2024-05-30 06:15] LABS: HCT 39.6 % (37.2-46.3); HGB 12.4 g/dL (12.0-15.0); Immature Platelet Fraction 7.5 % (1.1-6.1); MCH 26.1 pg (27.0-32.0); MCHC 31.3 g/dL (32.0-37.0); MCV 83.2 fL (80.0-97.0); Platelet Count 133 10*3/uL (140-440); RBC 4.76 10*6/uL (4.10-5.20); RDW 19.1 % (11.5-14.5); WBC 11.27 10*3/uL (4.50-10.00)
[2024-05-30 06:25] LABS: African American GFR (CKD) >90 (>60 ml/min/1.73 sqM); Anion Gap 8 mmol/L; Blood Urea Nitrogen 23 mg/dL (7-17); Carbon Dioxide 29 mmol/L (22-30); Chloride 102 mmol/L (98-107); Glucose 191 mg/dL (74-99); Non-African American GFR(CKD) 79 (>60 ml/min/1.73 sqM); Potassium 3.8 mmol/L (3.5-5.1); Sodium 139 mmol/L (137-145)
[2024-05-30] MEDS: METOPROLOL TARTRATE 50 MG TAB PO SCH (09:28)
[2024-05-30] MEDS: predniSONE 20 MG TAB PO SCH (09:28)
[2024-05-30 11:25] LABS: Glucose,Whole Blood 307 mg/dL (70-110)
--- NOTE | 2024-05-30 11:28 | P.PN ---
Subjective Progress Note Date: 05/30/24 HPI: This lady has history of CAD prior bypass surgery known descending thoracic and abdominal aortic aneurysm that has been stable. She has history of COPD smoking. She came in mostly with exacerbation of her respiratory issues. She remains in sinus rhythm with a right bundle. She was transferred from the ER to the ICU. She is comfortable maintaining sinus rhythm heart rate is slightly faster occasional PACs. I am recommending that we increase the metoprolol to metoprolol tartrate 50 mg 3 times daily. She has a reduced ejection fraction. Overall prognosis remains poor. Her breathing is a lot better today she is resting comfortably.. PHYSICIAL EXAM: She has a JVD 1 cm vitals are stable S1-S2 with a short systolic murmur is audible lungs reveal bilateral improved air entry abdomen is soft lower extremities reveal diminished pulses Central nervous system grossly no focal deficits. IMPRESSION: 1. Exacerbation of COPD. 2. Paroxysmal atrial fibrillation in sinus rhythm with PACs.. 3. History of thoracic and abdominal aortic aneurysm. Stable. 4. Moderate to severe mitral regurgitation. 5. Chronic hypoxemia on home oxygen. RECOMMENDATIONS: Continue current therapy increase beta-blockers. Patient can be discharged whenever okay with the admitting doctor. She will follow-up with Dr. Patricia upon discharge. Objective - Vital Signs Vital signs: Vital Signs Temp 97.5 F L 05/30/24 07:40 Pulse 113 H 05/30/24 09:34 Resp 20 05/30/24 07:40 BP 96/72 05/30/24 07:40 Pulse Ox 94 L 05/30/24 09:23 FiO2 50 05/29/24 01:07 Intake & Output 05/29/24 05/30/24 05/30/24 18:59 06:59 18:59 Weight 72.1 kg Other: Voiding Method External Catheter External Catheter - Labs CBC & Chem 7: 05/30/24 05:22 05/30/24 05:22 Labs: Abnormal Lab Results - Last 24 Hours (Table) 05/29/24 05/30/24 05/30/24 Range/Units 23:57 05:22 05:22 WBC 11.27 H (4.50-10.00) 10*3/uL MCH 26.1 L (27.0-32.0) pg MCHC 31.3 L (32.0-37.0) g/dL Plt Count 133 L (140-440) 10*3/uL MPV 13.0 H (9.5-12.2) fL Immature Plt Fraction 7.5 H (1.1-6.1) % BUN 23 H (7-17) mg/dL Glucose 191 H (74-99) mg/dL POC Glucose (mg/dL) 213 H (70-110) mg/dL
[2024-05-30] MEDS ORDERED: DEXTROSE 50% SYRINGE 50 ML IVP PRN ×2 (11:44)
[2024-05-30 12:50] VITALS: TEMP 98.4
[2024-05-30] MEDS: INSULIN LISPRO (HumaLOG) 100 UNIT/ML 10 mL VL SQ SCH (12:59)
--- NOTE | 2024-05-30 14:48 | P.PN ---
Subjective Progress Note Date: 05/30/24 This is a 69-year-old female patient who was brought to the emergency department with worsening shortness of breath of few days duration. The patient has increased cough and congestion and some increased wheezing and her presentation was typical of an acute COPD exacerbation. She does have extensive number of comorbidities as mentioned below. The workup in the emergency department showed a negative viral screen. proBNP level was elevated at 8180. Troponins were minimally elevated at 0.04 and 0.05 respectively and the patient is free of any chest pain. Electrolytes are normal. BUN is at 40 with a creatinine of 0.8. The white cell count is at 10.5 with a hemoglobin of 13 and a platelet count of 157. INR is 1.2 with a PT of 13.1 and a PTT of 22. EKG done in the emergency department was normal sinus rhythm and the patient also had a right bundle sivan block pattern. This patient is known to have chronic systolic heart failure with impaired ejection fraction of 15 to 20%. She is known to have COPD, hypertension, hyperlipidemia, coronary artery disease and she has undergone previous bypass surgery. She has ischemic cardiomyopathy and a ejection fraction from February 2024 showed 15 to 20% and the patient has moderate to severe mitral regurgitation along with mild to moderate tricuspid regurgitation. She has a descending thoracic aortic aneurysm and report that she is not a candidate for surgery due to her comorbidities. She also has history of paroxysmal atrial fibrillation. As stated, her current cardiac rhythm is sinus. The patient was hospitalized. Started on Symbicort. Start on DuoNeb updrafts. Started on IV Solu-Medrol. Rest of the home medication resumed including her long-term anticoagulants. CT of the chest on 05/29/2024 showed no evidence of any aortic dissection. Background and physiologic changes bilaterally. No evidence of any pulmonary embolism. Nonspecific nodular changes bilaterally. on 05/30/2024, the patient is being seen for a follow-up. The patient is stable on 3 days of oxygen by nasal cannula. Denies having any significant shortness of breath. Less mucus passing and wheezing. She is in atrial fibrillation and she is also tachycardic with a heart rate being above 120. Cardiology evaluated this patient this morning and her metoprolol dose was increased and currently the patient is on metoprolol 50 mg p.o. 3 times daily. She remains on amiodarone 20 mg p.o. daily. She remains on anticoagulation with Eliquis. She is on Symbicort as maintenance regarding her COPD in addition to DuoNeb updrafts and the patient is completing a course of prednisone burst taper. WBC count was 11.2 with a hemoglobin 12.4 and a platelet count of 133. BUN 23 with creatinine 0.7. Sodium levels at 139. No other specific complaints for now. Objective - Vital Signs Vital signs: Vital Signs Temp 97.5 F L 05/30/24 07:40 Pulse 118 H 05/30/24 07:40 Resp 20 05/30/24 07:40 BP 96/72 05/30/24 07:40 Pulse Ox 93 L 05/30/24 07:40 FiO2 50 05/29/24 01:07 Intake & Output 05/29/24 05/30/24 05/30/24 18:59 06:59 18:59 Weight 72.1 kg Other: Voiding Method External Catheter External Catheter - Exam GENERAL EXAM: Alert, 69-year-old -[place] female, on 2 L/min nasal cannula. Comfortable in no apparent distress. HEAD: Normocephalic and atraumatic EYES: Normal reaction of pupils, equal size. NOSE: Clear with pink turbinates. THROAT: No erythema or exudates. NECK: No masses, no JVD. CHEST: No chest wall deformity. LUNGS: Equal air entry with no crackles, wheeze, rhonchi or dullness. On 2 L/min nasal cannula. SpO2 reading 92%. No conversational dyspnea or accessory muscle use.. CVS: Tachycardic with a regular S1-S2, atrial fibrillation with tachycardia with no audible murmur, irregular rhythm. No extra heart sounds ABDOMEN: No hepatosplenomegaly, active bowel sounds, no guarding or rigidity. SPINE: No scoliosis or deformity SKIN: No rashes CENTRAL NERVOUS SYSTEM: No focal deficits, tone is normal in all 4 extremities. EXTREMITIES: There is no peripheral edema, clubbing, or cyanosis. Peripheral pulses are intact. - Labs CBC & Chem 7: 05/30/24 05:22 05/30/24 05:22 Labs: Abnormal Lab Results - Last 24 Hours (Table) 05/29/24 05/29/24 05/30/24 Range/Units 00:54 23:57 05: WBC 11.27 H (4.50-10.00) 10*3/uL MCH 26.1 L (27.0-32.0) pg MCHC 31.3 L (32.0-37.0) g/dL Plt Count 133 L (140-440) 10*3/uL MPV 13.0 H (9.5-12.2) fL Immature Plt Fraction 7.5 H (1.1-6.1) % BUN (7-17) mg/dL Glucose (74-99) mg/dL POC Glucose (mg/dL) 213 H (70-110) mg/dL C-Reactive Protein 4.8 H (<1.0) mg/dL 05/30/ Range/Units 05:22 WBC (4.50-10.00) 10*3/uL MCH (27.0-32.0) pg MCHC (32.0-37.0) g/dL Plt Count (140-440) 10*3/uL MPV (9.5-12.2) fL Immature Plt Fraction (1.1-6.1) % BUN 23 H (7-17) mg/dL Glucose 191 H (74-99) mg/dL POC Glucose (mg/dL) (70-110) mg/dL C-Reactive Protein (<1.0) mg/dL Assessment and Plan Plan: Acute exacerbation of chronic COPD with secondary shortness of breath. No evidence of any pneumonia. The viral screen has been negative. Clinically improving and the patient seems to be less short of breath compared to yesterday. She is also less bronchospastic and wheezy Acute hypoxic respiratory failure in the patient is currently on 2 L of oxygen by nasal cannula Acute on chronic dyspnea. The patient's chronic shortness of breath is multifactorial including her COPD and CHF. Acute decompensation seems to be more consistent with COPD exacerbation. Paroxysmal atrial fibrillation, maintained on long-term anticoagulation with Eliquis. The patient is also on beta-blockers and amiodarone. Earlier this morning, the patient was in A-fib with secondary tachycardia and rapid ventric ular response. Beta-alex dose was adjusted. The patient remains on amiodarone and anticoagulation with Eliquis. Chronic systolic congestive heart failure, ischemic cardiomyopathy with an EF of around 15 to 20% Valvular heart disease with moderate to severe mitral regurgitation and mild to moderate tricuspid regurgitation. This is based on echocardiogram that was done in February 2024 and this is in addition to impaired LV function with ejection fraction of 15 to 20%. Hypertension History of hyperlipidemia History of coronary artery disease with previous CABG History of descending thoracic aortic aneurysm, reportedly not a surgical candidate Former tobacco smoker Plan Titrate oxygen flow to maintain saturation above 90%, currently on 2 L Continue DuoNeb nebulized treatments [id number] Discontinue the IV Solu-Medrol start the patient on a prednisone burst taper. Start the patient on 40 mg of prednisone Continue Symbicort as maintenance regarding her COPD Patient is a former smoker Continue metoprolol 50 mg p.o. 3 times daily and amiodarone 200 mg p.o. daily. The patient is also on long-term anticoagulation with Eliquis. Continue Lasix 40 mg p.o. daily proBNP is elevated if there is no obvious signs of decompensated heart failure we will continue same medications CT of the chest was reviewed and there is no evidence of thoracic aortic dissection. No evidence of any pulmonary embolism. There is bilateral emphysematous change bilaterally and some chronic nodularity involving the lingula and the right lower lobe and the left upper lobe. Will continue to follow. Cardiology input is appreciated. Time with Patient: Greater than 30
[2024-05-30 16:24] VITALS: BP 98/76; PULSE 105; RESP 25
--- NOTE | 2024-06-01 12:56 | P.DS ---
Providers Date of admission: 05/29/24 07:02 Expected date of discharge: 05/30/24 Attending physician: Greg Dominguez MD Consults: 05/29/24 06:59 Consult Physician Routine Consulting Provider: Warren Burns Consult Reason/Comments: COPD Do you want consulting provider notified?: Yes, Notify in am Consult Physician Routine Consulting Provider: [facility] Consult Reason/Comments: CHF Do you want consulting provider notified?: Yes, Notify in am Primary care physician: Lorenza Christopher [facility] Course: Final diagnosis -Acute on chronic hypercapnic respiratory failure: Secondary to COPD exacerbation. -Congestive heart failure chronic systolic function EF of around 35% with possible mild acute exacerbation - Troponin elevation secondary to hypoxemia type II non-ST elevation UT. - History of significant thoracic aortic aneurysm with concern of loculated rupture on previous CT imaging Hypomagnesemia, replaced -paroxysmal atrial fibrillation presently rate controlled -Hyperlipidemia -DVT prophylaxis: On Eliquis which will be continued - Noncompliance with medications and follow-up outpatient -GI prophylaxis -Full code Discharge disposition Patient is being discharged in a stable condition with guarded prognosis to home. Patient will follow-up with Dr. Devin Gongora in the outpatient setting upon discharge. Patient is to continue with current medications and outpatient follow-up with cardiology and pulmonary as scheduled. Total time taken is greater than 35 minutes. Hospital course This is a 69-year-old female who was recently admitted with shortness of breath with acute on chronic hypoxic respiratory failure secondary to COPD and CHF exacerbation. Patient chronically wears oxygen outpatient and has significant cardiac and pulmonary history was closely monitored and improving with mild overload given a dose of Lasix. Patient has been evaluated by cardiology and pulmonary and has been cleared for outpatient follow-up. Please refer to other consultation notes for further HPI. Currently no reports of chest pain, shortness of breath, or palpitations. Patient is afebrile. No reports of nausea or vomiting and patient is tolerating diet. Patient will be discharged home today. High risk for readmissions given significant comorbidities and advanced COPD as well as CHF. Physical exam: Gen: This is a 69-year-old female who is awake, alert and oriented x 3, well- developed, elderly appearing, chronically ill-appearing HEENT: Head is atraumatic, normocephalic. Pupils equal, round. Sclerae is anicteric. NECK: Supple. No JVD. No lymphadenopathy. No thyromegaly. LUNGS: Diminished breath sounds bilaterally otherwise clear to auscultation. No wheezes, few scattered rhonchi. No intercostal retractions. HEART: S1, S2 are muffled, irregular ABDOMEN: Soft. Obese. Bowel sounds are present. No masses. No tenderness. EXTREMITIES: No pedal edema. No calf tenderness. NEUROLOGICAL: Patient is awake, alert and oriented x3. Cranial nerves 2 through 12 are grossly intact. Please refer to medication reconciliation sheet for a list of medications. The impression and plan of care has been dictated by Marion Castro, Nurse Practitioner as directed. Dr. Deidre MD I have performed a history and examination and MDM of this patient, discussed the same with the dictator, and agree with the dictator's assessment and plan as written ,documented as a scribe. Based on total visit time, I have performed more than 50% of the visit. Patient Condition at Discharge: Stable Plan - Discharge Summary Discharge Rx Participant: Yes New Discharge Prescriptions: New Benzonatate [Tessalon Perles] 100 mg PO TID PRN #30 cap PRN Reason: Cough Acetaminophen Tab [Tylenol] 650 mg PO Q6HR PRN tab PRN Reason: Mild Pain Or Fever > 100.5 Metoprolol Tartrate [Lopressor] 50 mg PO TID #90 tab Continue Nitroglycerin Sl Tabs [Nitrostat] 0.4 mg SL Q5M PRN PRN Reason: Chest Pain Ipratropium-Albuterol Nebulize [Duoneb 0.5 mg-3 mg/3 ml Soln] 3 ml INHALATION RT-Q2H PRN each PRN Reason: Shortness Of Breath Or Wheezing Folic Acid 1 mg PO DAILY #30 tab Atorvastatin [Lipitor] 40 mg PO DAILY #30 tab Apixaban [Eliquis] 5 mg PO BID Albuterol Inhaler [Ventolin Hfa Inhaler] 1 puff INHALATION QID PRN #8 gm PRN Reason: Shortness Of Breath Or Wheezing Amiodarone [Cordarone] 200 mg PO DAILY #30 tab Ipratropium-Albuterol Nebulize [Duoneb 0.5 mg-3 mg/3 ml Soln] 3 ml INHALATION RT-QID #100 each Thiamine [Vitamin B-1] 100 mg PO DAILY #30 tab Albuterol Nebulized [Ventolin Nebulized] 2.5 mg INHALATION RT-QID Multivitamins, Thera [Multivitamin (formulary)] 1 tab PO DAILY Furosemide [Lasix] 40 mg PO DAILY #30 tab Pantoprazole [Protonix] 40 mg PO AC-BRKFST #30 tab Budesonide-Formot 160-4.5 Mcg [Symbicort 160-4.5 Mcg Inhaler] 2 puff INHALATION RT-BID #1 each Discontinued Metoprolol Succinate (ER) [Toprol XL] 50 mg PO DAILY #30 tab Discharge Medication List Nitroglycerin Sl Tabs [Nitrostat] 0.4 mg SL Q5M PRN 01/16/24 [History] Amiodarone [Cordarone] 200 mg PO DAILY #30 tab 05/01/24 [Rx] Atorvastatin [Lipitor] 40 mg PO DAILY #30 tab 05/01/24 [Rx] Folic Acid 1 mg PO DAILY #30 tab 05/01/24 [Rx] Ipratropium-Albuterol Nebulize [Duoneb 0.5 mg-3 mg/3 ml Soln] 3 ml INHALATION RT-Q2H PRN each 05/01/24 [Rx] Ipratropium-Albuterol Nebulize [Duoneb 0.5 mg-3 mg/3 ml Soln] 3 ml INHALATION RT-QID #100 each 05/01/24 [Rx] Thiamine [Vitamin B-1] 100 mg PO DAILY #30 tab 05/01/24 [Rx] Albuterol Nebulized [Ventolin Nebulized] 2.5 mg INHALATION RT-QID 05/17/24 [History] Apixaban [Eliquis] 5 mg PO BID 05/17/24 [History] Multivitamins, Thera [Multivitamin (formulary)] 1 tab PO DAILY 05/17/24 [History] Albuterol Inhaler [Ventolin Hfa Inhaler] 1 puff INHALATION QID PRN #8 gm 05/20/24 [Rx] Budesonide-Formot 160-4.5 Mcg [Symbicort 160-4.5 Mcg Inhaler] 2 puff INHALATION RT-BID #1 each 05/20/24 [Rx] Furosemide [Lasix] 40 mg PO DAILY #30 tab 05/20/24 [Rx] Pantoprazole [Protonix] 40 mg PO AC-BRKFST #30 tab 05/20/24 [Rx] Acetaminophen Tab [Tylenol] 650 mg PO Q6HR PRN tab 05/30/24 [Rx] Benzonatate [Tessalon Perles] 100 mg PO TID PRN #30 cap 05/30/24 [Rx] Metoprolol Tartrate [Lopressor] 50 mg PO TID #90 tab 05/30/24 [Rx] Follow up Appointment(s)/Referral(s): Lorenza Christopher MD [Primary Care Provider] - 05/30/24 10:30 am Activity/Diet/Wound Care/Special Instructions: Activity limited until follow-up Follow-up with primary care provider on discharge Follow-up with cardiology outpatient Follow-up with pulmonary outpatient Continue taking medications as prescribed Continue with prednisone taper and breathing treatments Keep your inhalers with you Discharge Disposition: HOME SELF-CARE
== END 2024-05-30 18:58 | disposition home or self-care (01) ==
LOC: EC 00:36 → 3SCARD 07:02 → 2SICU 23:13
PROVIDERS: ADMIT Internal Medicine; ATTEND Internal Medicine
DX: J44.1 Chronic obstructive pulmonary disease with (acute) exacerbation (principal); J96.21 Acute and chronic respiratory failure with hypoxia; J96.22 Acute and chronic respiratory failure with hypercapnia; I71.23 Aneurysm of the descending thoracic aorta, without rupture; I48.0 Paroxysmal atrial fibrillation; I11.0 Hypertensive heart disease with heart failure; I50.22 Chronic systolic (congestive) heart failure; I21.A1 Myocardial infarction type 2; I25.10 Atherosclerotic heart disease of native coronary artery without angina pectoris; I25.5 Ischemic cardiomyopathy; I45.10 Unspecified right bundle-branch block; E11.9 Type 2 diabetes mellitus without complications; E78.5 Hyperlipidemia, unspecified; E83.42 Hypomagnesemia; I08.1 Rheumatic disorders of both mitral and tricuspid valves; Z79.01 Long term (current) use of anticoagulants; Z79.51 Long term (current) use of inhaled steroids; Z79.899 Other long term (current) drug therapy; Z87.891 Personal history of nicotine dependence; Z91.148 Patient's other noncompliance with medication regimen for other reason; Z95.1 Presence of aortocoronary bypass graft; Z99.81 Dependence on supplemental oxygen
CPT/HCPCS: 96376 ×2; 96365; 96366; 96367; 96375; 99291; 36415; 94660; 94640 ×4; 94760 ×2; 93005; 85379; 83880; 80053; 80048; 83605; 83735 ×2; 84484; 85025; 85027; 85610; 85730; 86140; 87040; 84145; 87636; 71045; 71275; G0378 ×2; J0456; J0696; J3475; J7512 ×2; Q9967; J2919 ×2; J1938

== ENCOUNTER 2024-06-08 17:01 | Emergency (ER) | payer MEDICARE, OTHER ==
[2024-06-08 17:08] VITALS: RESP 20
--- NOTE | 2024-06-08 17:40 | ED ---
General Adult HPI - General Chief complaint: Shortness of Breath Stated complaint: SOB Time Seen by Provider: 06/08/24 17:05 Source: patient, EMS, RN notes reviewed, old records reviewed Mode of arrival: EMS - History of Present Illness Initial comments: This is a 69-year-old female with a past medical history significant for congestive heart failure and diabetes. Patient also has a history of COPD. Patient comes in stating that a nurse at her home told her that she had some crackles in her lungs and she needed to come in and be evaluated. Patient states she is on 2 L of oxygen at home and her pulse ox has not dropped. Patient denies chest pain or palpitations. Patient denies any recent fever chills or cough. Patient has any swelling to the legs more than normal. - Related Data Home Medications Medication Instructions Recorded Confirmed Nitroglycerin Sl Tabs [Nitrostat] 0.4 mg SL Q5M PRN 01/16/24 06/08/24 Albuterol Nebulized [Ventolin 2.5 mg INHALATION RT-QID 05/17/24 06/08/24 Nebulized] Apixaban [Eliquis] 5 mg PO BID 05/17/24 06/08/24 Multivitamins, Thera [Multivitamin 1 tab PO DAILY 05/17/24 06/08/24 (formulary)] Albuterol Inhaler [Ventolin Hfa 1 puff INHALATION RT-QID PRN 06/08/24 06/08/24 Inhaler] Previous Rx's Medication Instructions Recorded Amiodarone [Cordarone] 200 mg PO DAILY #30 tab 05/01/24 Atorvastatin [Lipitor] 40 mg PO DAILY #30 tab 05/01/24 Folic Acid 1 mg PO DAILY #30 tab 05/01/24 Ipratropium-Albuterol Nebulize 3 ml INHALATION RT-Q2H PRN each 05/01/24 [Duoneb 0.5 mg-3 mg/3 ml Soln] Ipratropium-Albuterol Nebulize 3 ml INHALATION RT-QID #100 each 05/01/24 [Duoneb 0.5 mg-3 mg/3 ml Soln] Thiamine [Vitamin B-1] 100 mg PO DAILY #30 tab 05/01/24 Budesonide-Formot 160-4.5 Mcg 2 puff INHALATION RT-BID #1 each 05/20/24 [Symbicort 160-4.5 Mcg Inhaler] Furosemide [Lasix] 40 mg PO DAILY #30 tab 05/20/24 Pantoprazole [Protonix] 40 mg PO AC-BRKFST #30 tab 05/20/24 Acetaminophen Tab [Tylenol] 650 mg PO Q6HR PRN tab 05/30/24 Metoprolol Tartrate [Lopressor] 50 mg PO TID #90 tab 05/30/24 Allergies Allergy/AdvReac Type Severity Reaction Status Date / Time adhesive Allergy Rash/Hives Verified 06/08/24 19:09 Review of Systems ROS Statement: Those systems with pertinent positive or pertinent negative responses have been documented in the HPI. ROS Other: All systems not noted in ROS Statement are negative. Past Medical History Past Medical History: Atrial Fibrillation, Asthma, Chest Pain / Angina History of Any Multi-Drug Resistant Organisms: None Reported Past Surgical History: No Surgical Hx Reported Additional Past Surgical History / Comment(s): "open heart surgery" Past Anesthesia/Blood Transfusion Reactions: No Reported Reaction Past Psychological History: No Psychological Hx Reported Smoking Status: Former smoker Past Alcohol Use History: None Reported Past Drug Use History: None Reported - Past Family History Father Family Medical History: No Reported History General Exam - General Exam Comments Initial Comments: GENERAL: Patient is well-developed and well-nourished. Patient is nontoxic and well- hydrated and is in mild distress. ENT: Neck is soft and supple. No significant lymphadenopathy is noted. Oropharynx is clear. Moist mucous membranes. Neck has full range of motion without eliciting any pain. EYES: The sclera were anicteric and conjunctiva were pink and moist. Extraocular movements were intact and pupils were equal round and reactive to light. Eyelids were unremarkable. PULMONARY: Expiratory wheezing bilaterally CARDIOVASCULAR: There is a regular rate and rhythm without any murmurs gallops or rubs. ABDOMEN: Soft and nontender with normal bowel sounds. SKIN: Skin is clear with no lesions or rashes and otherwise unremarkable. NEUROLOGIC: Patient is alert and oriented x3. Cranial nerves II through XII are grossly intact. Motor and sensory are also intact. Normal speech, volume and content. Symmetrical smile. MUSCULOSKELETAL: Normal extremities with adequate strength and full range of motion. LYMPHATICS: No significant lymphadenopathy is noted PSYCHIATRIC: Normal psychiatric evaluation. Course Vital Signs 06/08/24 06/08/2406/08/25 17:03 18:26 18:41 Temperature 98.0 F Pulse Rate 64 58 L 60 Respiratory 20 Rate Blood Pressure 155/63 O2 Sat by Pulse 94 L Oximetry 06/08/24 19:16 Temperature Pulse Rate 67 Respiratory Rate Blood Pressure 127/49 O2 Sat by Pulse 94 L Oximetry Medical Decision Making - Medical Decision Making EKG is interpreted by myself EKG shows a sinus rhythm with occasional PVC at 64 bpm WA was 162 QRS 154 QT interval is 484 QTc is 494. Patient's EKG shows no ST segment ovation however it is a poor quality EKG. Patient also has a right bundle branch block. Was pt. sent in by a medical professional or institution (PAUL Ramachandran, [employer]ICE PRESIDENT [employer]AFETY, urgent care, hospital, or prison...) When possible be specific @ -No Did you speak to anyone other than the patient for history (EMS, parent, family, police, friend...)? What history was obtained from this source @ -No Did you review nursing and triage notes (agree or disagree)? Why? @ -I reviewed and agree with nursing and triage notes Were old charts reviewed (outside hosp., previous admission, EMS record, old EKG, old radiological studies, urgent care reports/EKG's, prison records)? Report findings @ -No old charts were reviewed Differential Diagnosis? @ -Differential Dyspnea: Coronary syndrome, arrhythmia, tamponade, asthma, COPD, pulmonary embolism, pneumonia, pneumothorax, pulmonary effusion, anaphylaxis, diabetic ketoacidosis, flailed chest, pulmonary contusion, diaphragmatic rupture, anemia, neuromuscular, this is not meant to be an all-inclusive list. EKG interpreted by me (3pts min.). @ -As above X-rays interpreted by me (1pt min.). @ -X-ray shows no acute signs of failure CT interpreted by me (1pt min.). @ -None done U/S interpreted by me (1pt. min.). @ -None done What testing was considered but not performed or refused? (CT, X-rays, U/S, labs)? Why? @ -None What meds were considered but not given or refused? Why? @ -None Did you discuss the management of the patient with other professionals (professionals i.e. PAUL Ramachandran, VICE PRESIDENT [employer]AFETY, lab, RT, psych nurse, foster care social worker, dip brazier, teacher, sales and service officer, bilingual case manager)? Give summary @ -No Was smoking cessation discussed for >3mins.? @ -No Was critical care preformed (if so, how long)? @ -No Were there social determinants of health that impacted care today? How? (Homel essness, low income, unemployed, alcoholism, drug addiction, transportation, low edu. Level, literacy, decrease access to med. care, [place] [facility], rehab)? @ -No Was there de-escalation of care discussed even if they declined (Discuss DNR or withdrawal of care, Hospice)? DNR status @ -No What co-morbidities impacted this encounter? (DM, HTN, Smoking, COPD, CAD, Cancer, CVA, ARF, Chemo, Hep., AIDS, mental health diagnosis, sleep apnea, morbid obesity)? @ -None Was patient admitted / discharged? Hospital course, mention meds given and route, prescriptions, significant lab abnormalities, going to OR and other pertinent info. @ -I back in the room and reevaluated the patient she was oxygenating at 98% on 2 L and her heart rate was 67 she stated she did not want to stay in the hospital and she was comfortable going home Undiagnosed new problem with uncertain prognosis? @ -No Drug Therapy requiring intensive monitoring for toxicity (Heparin, Nitro, Insulin, Cardizem)? @ -No Were any procedures done? @ -No Diagnosis/symptom? @ -Pulmonary edema Acute, or Chronic, or Acute on Chronic? @ -Acute Uncomplicated (without systemic symptoms) or Complicated (systemic symptoms)? @ -Uncomplicated Side effects of treatment? @ -No Exacerbation, Progression, or Severe Exacerbation? @ -No Poses a threat to life or bodily function? How? (Chest pain, [place], [place], pneumonia, PE, COPD, DKA, ARF, appy, cholecystitis, CVA, Diverticulitis, Homicidal, Suicidal, threat to staff... and all critical care pts) @ -No - Lab Data Result diagrams: 06/08/24 17:47 06/08/24 17:47 Lab Results 06/08/24 06/08/24 06/08/24 Range/Units 17:47 17:47 17:47 WBC 6.09 (4.50-10.00) 10*3/uL RBC 4.16 (4.10-5.20) 10*6/uL Hgb 11.2 L (12.0-15.0) g/dL Hct 35.8 L (37.2-46.3) % MCV 86.1 (80.0-97.0) fL MCH 26.9 L (27.0-32.0) pg MCHC 31.3 L (32.0-37.0) g/dL Plt Count 89 L (140-440) 10*3/uL MPV 12.3 H (9.5-12.2) fL Immature Gran % (Auto) 1.0 % Neutrophils % 60.2 % Lymphocytes % 26.3 % Monocytes % 9.7 % Eosinophils % 2.3 % Basophils % 0.5 % Immature Gran # 0.06 H (0.00-0.04) 10*3/uL Neutrophils # 3.67 (1.80-7.70) 10*3/uL Lymphocytes # 1.60 (0.90-5.00) 10*3/uL Monocytes # 0.59 (0.20-1.00) 10*3/uL Eosinophils # 0.14 (0.04-0.35) 10*3/uL Basophils # 0.03 (0.00-0.10) 10*3/uL Manual Slide Review Performed Poikilocytosis (manual Present Anisocytosis (manual) Present Ovalocytes Present Crenated Cell Present PT 12.6 H (10.0-12.5) sec INR 1.2 H (<1.2) APTT 22.7 (22.0-30.0) sec Sodium 144 (137-145) mmol/L Potassium 4.1 (3.5-5.1) mmol/L Chloride 113 H (98-107) mmol/L Carbon Dioxide 24 (22-30) mmol/L Anion Gap 7 mmol/L BUN 13 (7-17) mg/dL Creatinine 0.66 (0.52-1.04) mg/dL Est GFR (CKD-EPI)AfAm >90 (>60 ml/min/1.73 sqM) Est GFR (CKD-EPI)NonAf >90 (>60 ml/min/1.73 sqM) Glucose 124 H (74-99) mg/dL Plasma Lactic Acid Gentry (0.7-2.0) mmol/L Calcium 8.9 (8.4-10.2) mg/dL Magnesium 1.5 L (1.6-2.3) mg/dL Total Bilirubin 1.4 H (0.2-1.3) mg/dL AST 27 (14-36) U/L ALT 29 (4-34) U/L Alkaline Phosphatase 79 (38-126) U/L Troponin I (0.000-0.034) ng/mL NT-Pro-B Natriuret Pep 5420 pg/mL Total Protein 5.8 L (6.3-8.2) g/dL Albumin 3.5 (3.5-5.0) g/dL 06/08/24 06/08/24 Range/Units 17:47 17:47 WBC (4.50-10.00) 10*3/uL RBC (4.10-5.20) 10*6/uL Hgb (12.0-15.0) g/dL Hct (37.2-46.3) % MCV (80.0-97.0) fL MCH (27.0-32.0) pg MCHC (32.0-37.0) g/dL Plt Count (140-440) 10*3/uL MPV (9.5-12.2) fL Immature Gran % (Auto) % Neutrophils % % Lymphocytes % % Monocytes % % Eosinophils % % Basophils % % Immature Gran # (0.00-0.04) 10*3/uL Neutrophils # (1.80-7.70) 10*3/uL Lymphocytes # (0.90-5.00) 10*3/uL Monocytes # (0.20-1.00) 10*3/uL Eosinophils # (0.04-0.35) 10*3/uL Basophils # (0.00-0.10) 10*3/uL Manual Slide Review Poikilocytosis (manual Anisocytosis (manual) Ovalocytes Crenated Cell PT (10.0-12.5) sec INR (<1.2) APTT (22.0-30.0) sec Sodium (137-145) mmol/L Potassium (3.5-5.1) mmol/L Chloride (98-107) mmol/L Carbon Dioxide (22-30) mmol/L Anion Gap mmol/L BUN (7-17) mg/dL Creatinine (0.52-1.04) mg/dL Est GFR (CKD-EPI)AfAm (>60 ml/min/1.73 sqM) Est GFR (CKD-EPI)NonAf (>60 ml/min/1.73 sqM) Glucose (74-99) mg/dL Plasma Lactic Acid Gentry 1.3 (0.7-2.0) mmol/L Calcium (8.4-10.2) mg/dL Magnesium (1.6-2.3) mg/dL Total Bilirubin (0.2-1.3) mg/dL AST (14-36) U/L ALT (4-34) U/L Alkaline Phosphatase (38-126) U/L Troponin I <0.012 (0.000-0.034) ng/mL NT-Pro-B Natriuret Pep pg/mL Total Protein (6.3-8.2) g/dL Albumin (3.5-5.0) g/dL Disposition Clinical Impression: History of pulmonary edema Disposition: HOME SELF-CARE Condition: Good Instructions (If sedation given, give patient instructions): Pulmonary Edema (ED) Additional Instructions: Was instructed to return if there is any new or worsening symptoms. Is patient prescribed a controlled substance at d/c from ED?: No Referrals: Lorenza Christopher MD [Primary Care Provider] - 1-2 days Time of Disposition: 19:32
[2024-06-08 17:53] LABS: Basophils # (A) 0.03 10*3/uL (0.00-0.10); Basophils % (A) 0.5 %; Eosinophils # (A) 0.14 10*3/uL (0.04-0.35); Eosinophils % (A) 2.3 %; HCT 35.8 % (37.2-46.3); HGB 11.2 g/dL (12.0-15.0); Lymphocytes % (A) 26.3 %; MCH 26.9 pg (27.0-32.0); MCHC 31.3 g/dL (32.0-37.0); MCV 86.1 fL (80.0-97.0); Mean Platelet Volume 12.3 fL (9.5-12.2); Monocytes # (A) 0.59 10*3/uL (0.20-1.00); Monocytes % (A) 9.7 %; Neutrophils # (A) 3.67 10*3/uL (1.80-7.70); Neutrophils % (A) 60.2 %; RBC 4.16 10*6/uL (4.10-5.20); RDW 19.9 % (11.5-14.5); WBC 6.09 10*3/uL (4.50-10.00)
[2024-06-08 18:08] LABS: INR 1.2 (<1.2); Partial Thromboplastin Time 22.7 sec (22.0-30.0); Prothrombin Time 12.6 sec (10.0-12.5)
[2024-06-08 18:12] LABS: ALT 29 U/L (4-34); AST 27 U/L (14-36); African American GFR (CKD) >90 (>60 ml/min/1.73 sqM); Albumin 3.5 g/dL (3.5-5.0); Alkaline Phosphatase 79 U/L (38-126); Anion Gap 7 mmol/L; Blood Urea Nitrogen 13 mg/dL (7-17); Calcium 8.9 mg/dL (8.4-10.2); Carbon Dioxide 24 mmol/L (22-30); Chloride 113 mmol/L (98-107); Glucose 124 mg/dL (74-99); Magnesium 1.5 mg/dL (1.6-2.3); Non-African American GFR(CKD) >90 (>60 ml/min/1.73 sqM); Potassium 4.1 mmol/L (3.5-5.1); Sodium 144 mmol/L (137-145); Total Bilirubin 1.4 mg/dL (0.2-1.3); Total Protein 5.8 g/dL (6.3-8.2)
[2024-06-08 18:20] LABS: NT-Pro-B-Type Natriuretic Pept 5420 pg/mL
[2024-06-08] MEDS: ALBUTEROL NEBULIZED 2.5 MG/3 ML INHALATION STA (18:25)
[2024-06-08] MEDS: IPRATROPIUM 0.5 MG/2.5 ML NEBU INHALATION STA (18:26)
--- NOTE | 2024-06-08 18:27 | XR ---
EXAMINATION TYPE: XR chest 2V DATE OF EXAM: 06/08/2024 6:23 PM COMPARISON: 05/29/2024 CLINICAL INDICATION: Female, 69 years old with history of difficulty breathing: Shortness of breath TECHNIQUE: XR chest 2V views of the chest are obtained. FINDINGS: Scattered senescent parenchymal changes noted. Hyperinflation compatible with COPD. No evidence for infiltrate. No evidence for atelectasis. Cardiomegaly with chronic pulmonary venous decompensation. Suspect small right-sided effusion. No ove rt failure or focal infiltrate. Mediastinal structures are stable and grossly unremarkable. No evidence for hilar prominence. Degenerative changes dorsal spine. IMPRESSION: 1. Cardiomegaly with chronic pulmonary venous decompensation. Suspect small right-sided effusion. No overt failure [facility], , 06/08/2024 6:25 PM
[2024-06-08 19:11] LABS: Anisocytosis (M) Present; Crenated RBC Present; Platelet Count 89 10*3/uL (140-440); Poikilocytosis (M) Present
[2024-06-08 19:12] LABS: Ovalocytes Present
[2024-06-08 20:20] VITALS: BP 157/82; PULSE 68; TEMP 98.2
== END 2024-06-08 20:20 | disposition home or self-care (01) ==
LOC: EC 17:01
DX: Z86.711 Personal history of pulmonary embolism (principal); J44.89 Other specified chronic obstructive pulmonary disease; I50.9 Heart failure, unspecified; E11.9 Type 2 diabetes mellitus without complications; Z87.891 Personal history of nicotine dependence; Z91.09 Other allergy status, other than to drugs and biological substances
CPT/HCPCS: 36415; 71046; 80053; 83605; 83735; 83880; 84484; 85025; 85610; 85730; 93005; 94640; 99285

== ENCOUNTER 2024-08-31 02:12 | Inpatient (IN) | payer MEDICARE, OTHER ==
[2024-08-31 02:58] LABS: Basophils # (A) 0.07 10*3/uL (0.00-0.10); Basophils % (A) 1.6 %; Eosinophils # (A) 0.06 10*3/uL (0.04-0.35); Eosinophils % (A) 1.4 %; HCT 34.6 % (37.2-46.3); HGB 10.8 g/dL (12.0-15.0); Immature Platelet Fraction 6.0 % (1.1-6.1); Lymphocytes # (A) 1.21 10*3/uL (0.90-5.00); Lymphocytes % (A) 28.2 %; MCH 26.9 pg (27.0-32.0); MCHC 31.2 g/dL (32.0-37.0); MCV 86.3 fL (80.0-97.0); Monocytes # (A) 0.52 10*3/uL (0.20-1.00); Monocytes % (A) 12.1 %; Neutrophils # (A) 2.41 10*3/uL (1.80-7.70); Neutrophils % (A) 56.2 %; Platelet Count 112 10*3/uL (140-440); RBC 4.01 10*6/uL (4.10-5.20); RDW 16.2 % (11.5-14.5); WBC 4.29 10*3/uL (4.50-10.00)
[2024-08-31] MEDS: FUROSEMIDE 10 MG/ML 4 ML VIAL IV STA (02:59)
[2024-08-31] MEDS: NITROGLYCERIN SL TABS 0.4 MG TAB SUBLINGUAL STA (03:03)
[2024-08-31 03:07] LABS: ALT 17 U/L (4-34); AST 24 U/L (14-36); African American GFR (CKD) 85 (>60 ml/min/1.73 sqM); Albumin 4.1 g/dL (3.5-5.0); Alkaline Phosphatase 93 U/L (38-126); Anion Gap 12 mmol/L; Blood Urea Nitrogen 18 mg/dL (7-17); Calcium 9.2 mg/dL (8.4-10.2); Carbon Dioxide 21 mmol/L (22-30); Chloride 113 mmol/L (98-107); Glucose 115 mg/dL (74-99); Magnesium 1.7 mg/dL (1.6-2.3); Non-African American GFR(CKD) 73 (>60 ml/min/1.73 sqM); Potassium 4.2 mmol/L (3.5-5.1); Sodium 146 mmol/L (137-145); Total Protein 6.4 g/dL (6.3-8.2)
[2024-08-31 03:10] LABS: INR 1.4 (<1.2); Partial Thromboplastin Time 25.1 sec (22.0-30.0); Prothrombin Time 14.4 sec (10.0-12.5)
[2024-08-31 03:16] LABS: NT-Pro-B-Type Natriuretic Pept 7020 pg/mL
--- NOTE | 2024-08-31 03:22 | ED ---
SOB HPI - General Chief Complaint: Shortness of Breath Stated Complaint: Difficulty breathing Time Seen by Provider: 08/31/24 02:21 Source: patient, EMS Mode of arrival: EMS Limitations: no limitations - History of Present Illness Initial Comments: This patient is a 69-year-old woman who arrives by EMS to have evaluation for shortness of breath. She states that the symptoms had started coming on yesterday. They became much worse over the course of tonight starting around 1 AM. The patient also having some orthopnea. She had not had fever or chills. There is a little bit of cough with clear sputum. No chest pain. She does complain of lower extremity swelling greater on the left but states that the left leg always swells more than the right. MD Complaint: shortness of breath Onset/Timin -: days(s) Severity scale (1-10): 0 Consistency: constant Improves With: nothing Worsens With: lying flat Known History Of: congestive heart failure Associated Symptoms: lower extremity pain (Lower extremity edema) Treatments Prior to Arrival: bronchodilator - Related Data Home Oxygen Therapy: Yes Home Oxygen Amount: 2 Liters Home Medications Medication Instructions Recorded Confirmed Nitroglycerin Sl Tabs [Nitrostat] 0.4 mg SL Q5M PRN 01/16/24 08/31/24 Albuterol Inhaler [Ventolin Hfa 1 puff INHALATION RT-QID PRN 06/08/24 08/31/24 Inhaler] Apixaban [Eliquis] 2.5 mg PO BID 08/31/24 08/31/24 Losartan [Cozaar] 25 mg PO DAILY 08/31/24 08/31/24 Previous Rx's Medication Instructions Recorded Atorvastatin [Lipitor] 40 mg PO DAILY #30 tab 05/01/24 Budesonide-Formot 160-4.5 Mcg 2 puff INHALATION RT-BID #1 each 05/20/24 [Symbicort 160-4.5 Mcg Inhaler] Furosemide [Lasix] 40 mg PO BID #60 tab 07/08/24 Amiodarone [Cordarone] 100 mg PO DAILY #30 tab 09/02/24 Metoprolol Tartrate [Lopressor] 25 mg PO BID #60 tab 09/02/24 Allergies Allergy/AdvReac Type Severity Reaction Status Date / Time adhesive Allergy Rash/Hives Verified 08/31/24 10:24 Review of Systems ROS Statement: Those systems with pertinent positive or pertinent negative responses have been documented in the HPI. ROS Other: All systems not noted in ROS Statement are negative. Constitutional: Denies: fever, chills, weakness ENT: Denies: throat pain Respiratory: Reports: cough, dyspnea. Denies: wheezes, hemoptysis Cardiovascular: Reports: orthopnea, edema. Denies: chest pain, syncope Gastrointestinal: Denies: abdominal pain, nausea, vomiting, diarrhea Genitourinary: Denies: dysuria, hematuria Musculoskeletal: Denies: back pain Skin: Denies: rash Neurological: Denies: headache, weakness Psychiatric: Reports: anxiety Past Medical History Past Medical History: Atrial Fibrillation, Asthma, Chest Pain / Angina, COPD History of Any Multi-Drug Resistant Organisms: None Reported Past Surgical History: No Surgical Hx Reported Additional Past Surgical History / Comment(s): "open heart surgery" Past Anesthesia/Blood Transfusion Reactions: No Reported Reaction Past Psychological History: No Psychological Hx Reported Smoking Status: Never smoker Past Alcohol Use History: None Reported Past Drug Use History: None Reported - Past Family History Father Family Medical History: No Reported History General Exam Limitations: no limitations General appearance: alert, in no apparent distress, anxious Head exam: Present: atraumatic, normocephalic Eye exam: Present: normal appearance. Absent: scleral icterus, conjunctival injection ENT exam: Present: normal oropharynx Neck exam: Present: normal inspection Respiratory exam: Present: respiratory distress, rales (Bilateral bases). Absent: wheezes, rhonchi, stridor, accessory muscle use Cardiovascular Exam: Present: bradycardia, systolic murmur. Absent: diastolic murmur, rubs, gallop GI/Abdominal exam: Present: soft. Absent: distended, tenderness, guarding, rebound, mass Extremities exam: Present: full ROM, normal capillary refill, pedal edema (There is pitting edema to the knees bilaterally left greater than right). Absent: tenderness, calf tenderness Back exam: Present: normal inspection. Absent: CVA tenderness (R), CVA tenderness (L) Neurological exam: Present: alert Skin exam: Present: warm, dry, intact, normal color. Absent: rash Course Vital Signs 08/31/24 08/31/24 08/31/24 02:14 02:22 02:55 Temperature 97.7 F Pulse Rate 47 L 46 L Pulse Rate [ Pulse Oximetery ] Respiratory 25 H 25 H 22 Rate Blood Pressure 144/61 128/49 Blood Pressure [Left Arm] O2 Sat by Pulse 95 95 Oximetry 08/31/24 08/31/24 08/31/24 03:35 04:38 05:27 Temperature Pulse Rate 53 L 48 L 44 L Pulse Rate [ Pulse Oximetery ] Respiratory 22 24 22 Rate Blood Pressure 111/66 114/63 142/74 Blood Pressure [Left Arm] O2 Sat by Pulse 96 98 98 Oximetry 08/31/24 08/31/24 08/31/24 07:00 07:35 08:22 Temperature Pulse Rate 42 L 38 L 38 L Pulse Rate [ Pulse Oximetery ] Respiratory 24 23 21 Rate Blood Pressure 164/80 162/84 164/67 Blood Pressure [Left Arm] O2 Sat by Pulse 95 95 99 Oximetry 08/31/24 08/31/24 08/31/24 08:31 08:33 09:57 Temperature 97.6 F Pulse Rate Pulse Rate [ 42 L Pulse Oximetery ] Respiratory 22 20 Rate Blood Pressure Blood Pressure 134/56 [Left Arm] O2 Sat by Pulse 99 93 L Oximetry Medical Decision Making - Medical Decision Making Patient is 69-year-old woman who is here for dyspnea. Clinically the patient does appear to have a degree of congestive heart failure. The patient's lab results consistent with CHF exacerbation, there is elevated BNP. The patient also did have elevated D-dimer and is sent for CT scan which I interpreted as negative for acute pulmonary embolism. The patient does have chronic aortic dissection which is present on previous CT scan. Was pt. sent in by a medical professional or institution (, PA, CITY AUDITOR, urgent care, hospital, or [facility]...) When possible be specific @ -[No] Did you speak to anyone other than the patient for history (EMS, parent, family, police, friend...)? What history was obtained from this source @ -[No] Did you review nursing and triage notes (agree or disagree)? Why? @ -[I reviewed and agree with nursing and triage notes] Were old charts reviewed (outside hosp., previous admission, EMS record, old EKG, old radiological studies, urgent care reports/EKG's, [facility] records)? Report findings @ -[No old charts were reviewed] Differential Diagnosis (chest pain, altered mental status, abdominal pain women, abdominal pain men, vaginal bleeding, weakness, fever, dyspnea, syncope, headache, dizziness, GI bleed, back pain, seizure, CVA, palpatations, mental health, musculoskeletal)? @ -[Differential Dyspnea: Coronary syndrome, arrhythmia, tamponade, asthma, COPD, pulmonary embolism, pneumonia, pneumothorax, pulmonary effusion, anaphylaxis, diabetic ketoacidosis, flailed chest, pulmonary contusion, diaphragmatic rupture, anemia, neuromuscular, this is not meant to be an all-inclusive list. EKG interpreted by me (3pts min.). @ -[I interpreted as above] X-rays interpreted by me (1pt min.). @ -[None done] CT interpreted by me (1pt min.). @ -[I interpreted as above U/S interpreted by me (1pt. min.). @ -[None done] What testing was considered but not performed or refused? (CT, X-rays, U/S, labs)? Why? @ -[None] What meds were considered but not given or refused? Why? @ -[None] Did you discuss the management of the patient with other professionals (professionals i.e. , PA, CITY AUDITOR, lab, RT, psych nurse, clinical social work therapist, interim controller, teacher, employment security officer, rifle case repairer)? Give summary @ -Case discussed with admitting physician and treatment recommendations are incorporated Was smoking cessation discussed for >3mins.? @ -[No] Was critical care preformed (if so, how long)? @ -[No] Were there social determinants of health that impacted care today? How? (Homelessness, low income, unemployed, alcoholism, drug addiction, transportation, low edu. Level, literacy, decrease access to med. care, [facility], rehab)? @ -[No] Was there de-escalation of care discussed even if they declined (Discuss DNR or withdrawal of care, Hospice)? DNR status @ -[No] What co-morbidities impacted this encounter? (DM, HTN, Smoking, COPD, CAD, Cancer, CVA, ARF, Chemo, Hep., AIDS, mental health diagnosis, sleep apnea, morbid obesity)? @ -[Hypertension, chronic aortic dissection, history of atrial fibrillation Was patient admitted / discharged? Hospital course, mention meds given and route, prescriptions, significant lab abnormalities, going to OR and other p ertinent info. @ -[Patient is admitted to have further management of congestive heart failure. Undiagnosed new problem with uncertain prognosis? @ -[No] Drug Therapy requiring intensive monitoring for toxicity (Heparin, Nitro, Insulin, Cardizem)? @ -[No] Were any procedures done? @ -[No] Diagnosis/symptom? @ -[Acute exacerbation of congestive heart failure acute dyspnea Acute, or Chronic, or Acute on Chronic? @ -Acute Uncomplicated (without systemic symptoms) or Complicated (systemic symptoms)? @ -[Complicated by dyspnea Side effects of treatment? @ -[No] Exacerbation, Progression, or Severe Exacerbation? @ -[Moderate exacerbation Poses a threat to life or bodily function? How? (Chest pain, [place], [place], pneumonia, PE, COPD, DKA, ARF, appy, cholecystitis, CVA, Diverticulitis, Homicidal, Suicidal, threat to staff... and all critical care pts) @ -[No] All treatments are based on ideal body weight as in ED triage - Lab Data Result diagrams: 09/02/24 05:50 09/02/24 05:50 Lab Results 08/31/24 08/31/24 08/31/24 Range/Units 02:00 02:00 02:00 WBC 4.29 L (4.50-10.00) 10*3/uL RBC 4.01 L (4.10-5.20) 10*6/uL Hgb 10.8 L (12.0-15.0) g/dL Hct 34.6 L (37.2-46.3) % MCV 86.3 (80.0-97.0) fL MCH 26.9 L (27.0-32.0) pg MCHC 31.2 L (32.0-37.0) g/dL Plt Count 112 L (140-440) 10*3/uL MPV 12.4 H (9.5-12.2) fL Immature Gran % (Auto) 0.5 % Neutrophils % 56.2 % Lymphocytes % 28.2 % Monocytes % 12.1 % Eosinophils % 1.4 % Basophils % 1.6 % Immature Gran # 0.02 (0.00-0.04) 10*3/uL Neutrophils # 2.41 (1.80-7.70) 10*3/uL Lymphocytes # 1.21 (0.90-5.00) 10*3/uL Monocytes # 0.52 (0.20-1.00) 10*3/uL Eosinophils # 0.06 (0.04-0.35) 10*3/uL Basophils # 0.07 (0.00-0.10) 10*3/uL Immature Plt Fraction 6.0 (1.1-6.1) % PT 14.4 H (10.0-12.5) sec INR 1.4 H (<1.2) APTT 25.1 (22.0-30.0) sec D-Dimer 2.25 H (<0.60) mg/L FEU Sodium 146 H (137-145) mmol/L Potassium 4.2 (3.5-5.1) mmol/L Chloride 113 H (98-107) mmol/L Carbon Dioxide 21 L (22-30) mmol/L Anion Gap 12 mmol/L BUN 18 H (7-17) mg/dL Creatinine 0.82 (0.52-1.04) mg/dL Est GFR (CKD-EPI)AfAm 85 (>60 ml/min/1.73 sqM) Est GFR (CKD-EPI)NonAf 73 (>60 ml/min/1.73 sqM) Glucose 115 H (74-99) mg/dL Plasma Lactic Acid Gentry (0.7-2.0) mmol/L Calcium 9.2 (8.4-10.2) mg/dL Magnesium 1.7 (1.6-2.3) mg/dL Total Bilirubin 2.2 H (0.2-1.3) mg/dL AST 24 (14-36) U/L ALT 17 (4-34) U/L Alkaline Phosphatase 93 (38-126) U/L Troponin I (0.000-0.034) ng/mL NT-Pro-B Natriuret Pep 7020 pg/mL Total Protein 6.4 (6.3-8.2) g/dL Albumin 4.1 (3.5-5.0) g/dL Influenza Type A (PCR) (Not Detectd) Influenza Type B (PCR) (Not Detectd) RSV (PCR) (Not Detectd) SARS-CoV-2 (PCR) (Not Detectd) 07/08/31/24 08/31/24 Range/Units 02:00 02:00 03:00 WBC (4.50-10.00) 10*3/uL RBC (4.10-5.20) 10*6/uL Hgb (12.0-15.0) g/dL Hct (37.2-46.3) % MCV (80.0-97.0) fL MCH (27.0-32.0) pg MCHC (32.0-37.0) g/dL Plt Count (140-440) 10*3/uL MPV (9.5-12.2) fL Immature Gran % (Auto) % Neutrophils % % Lymphocytes % % Monocytes % % Eosinophils % % Basophils % % Immature Gran # (0.00-0.04) 10*3/uL Neutrophils # (1.80-7.70) 10*3/uL Lymphocytes # (0.90-5.00) 10*3/uL Monocytes # (0.20-1.00) 10*3/uL Eosinophils # (0.04-0.35) 10*3/uL Basophils # (0.00-0.10) 10*3/uL Immature Plt Fraction (1.1-6.1) % PT (10.0-12.5) sec INR (<1.2) APTT (22.0-30.0) sec D-Dimer (<0.60) mg/L FEU Sodium (137-145) mmol/L Potassium (3.5-5.1) mmol/L Chloride (98-107) mmol/L Carbon Dioxide (22-30) mmol/L Anion Gap mmol/L BUN (7-17) mg/dL Creatinine (0.52-1.04) mg/dL Est GFR (CKD-EPI)AfAm (>60 ml/min/1.73 sqM) Est GFR (CKD-EPI)NonAf (>60 ml/min/1.73 sqM) Glucose (74-99) mg/dL Plasma Lactic Acid Gentry 1.1 (0.7-2.0) mmol/L Calcium (8.4-10.2) mg/dL Magnesium (1.6-2.3) mg/dL Total Bilirubin (0.2-1.3) mg/dL AST (14-36) U/L ALT (4-34) U/L Alkaline Phosphatase (38-126) U/L Troponin I 0.012 (0.000-0.034) ng/mL NT-Pro-B Natriuret Pep pg/mL Total Protein (6.3-8.2) g/dL Albumin (3.5-5.0) g/dL Influenza Type A (PCR) Not Detected (Not Detectd) Influenza Type B (PCR) Not Detected (Not Detectd) RSV (PCR) Not Detected (Not Detectd) SARS-CoV-2 (PCR) Not Detected (Not Detectd) - EKG Data -: EKG Interpreted by Or EKG shows normal: sinus rhythm, axis (Indeterminate axis), intervals (ID interval 200 ms, borderline for first-degree block. QRS duration 168 ms, prolonged consistent with right bundle branch block. QTc 501 ms), QRS complexes (Right bundle branch block) Rate: bradycardia (Rate 46 bpm) Disposition Clinical Impression: CHF exacerbation, Chronic thoracic aortic dissection Disposition: ADMITTED IP TO THIS HOSP
[2024-08-31 03:57] LABS: RSV Not Detected (Not Detectd)
--- NOTE | 2024-08-31 04:45 | XR ---
EXAM: XR Chest, 2 Views CLINICAL HISTORY: Difficulty breathing TECHNIQUE: Frontal and lateral views of the chest. COMPARISON: No relevant prior studies available. FINDINGS: Lungs: Bilateral airspace opacities may represent pulmonary edema and/or atypical infection. Pleural space: Small bilateral pleural effusions. No pneumothorax. Heart: Cardiomegaly. Mediastinum: Unremarkable. Normal mediastinal contour. Bones/joints: Degenerative changes of the spine are noted. No acute fracture. IMPRESSION: 1. Bilateral airspace opacities may represent pulmonary edema and/or atypical infection. 2. Cardiomegaly. 3. Small bilateral pleural effusions.
--- NOTE | 2024-08-31 07:28 | CT ---
EXAMINATION TYPE: CT chest angio for PE DATE OF EXAM: 08/31/2024 5:52 AM COMPARISON: 05/29/2024 CLINICAL INDICATION: Female, 69 years old with history of Dyspnea, possible PE; shortness of breath TECHNIQUE: CTA of the chest after administration of 100 mL Isovue 370 IV contrast. Coronal and sagitt al MIP reconstructions were performed. CT DLP: 266.8 mGycm, Automated exposure control for dose reduction was used. FINDINGS: Median sternotomy wires and post-CABG changes. Mild generalized anasarca change. The heart is moderate to severely enlarged. No flattening of the interventricular septum though there is refluxing contrast into the hepatic veins. Right upper paratracheal mass measuring 4.8 x 3.5 cm hiatus is some mass effect on to the trachea wit h leftward deviation. This was present on 05/29/2024. Goiter is extension is favored. * Moderate atherosclerotic calcifications throughout the thoracic aorta. Borderline ectatic ascendin g aorta 3.5 cm. There is conventional arch vessel branching anatomy. * Borderline ectasia upper descending thoracic aorta 3.0 cm. * The mid descending thoracic aorta is dilated up to 4.2 cm, not significantly changed. * There is a large saccular aneurysm projecting from the left lateral wall here measuring up to 6.3 x 5.0 cm versus 6.5 x 4.8 cm, previously. * A second saccular aneurysm projects anteriorly measuring 2.9 x 1.7 cm, also likely changed. * Lower descending thoracic aorta measures 4.2 cm, unchanged. * Aorta at the thoracoabdominal junction measures 4.6 cm versus 4.4 cm, previously. * Upper abdominal aorta partially visualized measuring 3.7 cm, unchanged. There is generalized anasarca change. Satisfactory opacification of the pulmonary coil system. Following the mildly dilated caliber main ri ght and left pulmonary arteries up to 2.6 cm suggests underlying pulmonary arterial hypertension. The re is some breathing motion artifacts limiting the evaluation but no definite pulmonary embolus is se en. * Lower right paratracheal nodes measuring up to 1.1 cm, unchanged. * Right hilar lymph nodes measuring up to 2.3 cm versus 2.2 cm, previously, not significantly change d. * Subcarinal node 1.3 cm, unchanged. No miguel progressive thoracic adenopathy. There is small to moderate right and small left pleural effusions. Moderate emphysematous change. Dif fuse septal lines are present. Prominent atelectasis at the dependent lower lungs adjacent to the eff usions. Additional bands of atelectasis at the lung bases. Bones: Moderate degenerative disc disease midthoracic spine. IMPRESSION: 1. Breathing motion artifact. No definite pulmonary embolus. 2. Generalized anasarca, small to moderate right and small left pleural effusions, moderate to severe cardiomegaly, pulmonary hypertension, and diffuse septal lines. Constellation of findings suggest CH F with early interstitial pulmonary edema. 3. Please ensure that the patient has appropriate vascular surgery follow-up. The patient has large f usiform and saccular aneurysms of the mid and lower descending thoracic aorta. Saccular aneurysms nona sure up to 5.0 cm (not significantly changed from 05/29/2024). Descending thoracic aortic caliber andrzej ures up to 4.6 cm (possibly minimally increased from 4.4 cm on 05/29/2024). 4. Right upper paratracheal mass measuring 4.8 cm is unchanged, suspect goiterous extension or exophy tic thyroid nodule. Follow-up as clinically indicated. 5. Prominent dependent atelectasis at the bilateral lower lungs. [facility], , 08/31/2024 7:25 AM
[2024-08-31 10:23] VITALS: BMI 29.2
[2024-08-31] MEDS ORDERED: ALBUTEROL NEBULIZED 2.5 MG/3 ML INHALATION PRN (12:18)
[2024-08-31] MEDS: AMIODARONE 200 MG TAB PO SCH (12:22)
[2024-08-31] MEDS: LOSARTAN 25 MG TAB PO SCH (12:44)
[2024-08-31] MEDS: ATORVASTATIN 40 MG TAB PO SCH (12:44)
--- NOTE | 2024-08-31 15:11 | P.HPIM ---
History of Present Illness H&P Date: 08/31/24 Chief Complaint: shortness of breath History of present illness;a 69-year-old female with a past medical history significant for coronary artery disease with previous CABG, ischemic cardiomyopathy, diabetes, hyperlipidemia, systolic congestive heart failure(EF 30 to 35%), and abdominal aortic aneurysm, thoracic aortic aneurysm presents with complaints of a dizzy spell that usually resolves with rest, however it persisted despite sitting in recliner. She also experienced heart palpitations during the episode. In addition to the dizzy spell, she experienced worsening orthopnea for 2 days, patient has had similar episodes in the past. She was recently discharged in june where she was managed with IV Lasix for similar complaint. She reports she was non-compliant with low sodium diet, eating food she knows she is not supposed to eat. She is on 2L NC at home, but does not need all the time. She can walk around the grocery store or run errands without oxygen normally. She has pedal edema on the left leg however she states she only gets edema on one side. In the ER she received an EKG which revealed a right bundle branch block which is stable from previous EKGs. She also received a CTA which revealed bilateral pleural effusions and thoracic aortic aneurysms consistent with previous scans stable at 4.8 cm. Patient denies fever, chills, recent illness. At time of encounter, diszziness has resolved, she is no longer short of breath. Labs in ER WBC 4.29 Hgb 10.8 Plt 112 NA 146 K4.2 BUN 18 CR 0.82 GLU 115 BNP 7020 TROP 0.012 Quad screen negative Patient was admitted for further managment of acute on chronic combined CHF exacerbation with consults to cardiology, Vitals: HR 44, BP 163/76, SPO2 95 on 3L, T 97.6, REVIEW OF SYSTEMS: As stated above in HPI. The rest of the 14-point review of systems is negative. PHYSICAL EXAMINATION: GENERAL: The patient is alert and oriented x3, not in any acute distress. Well developed, well nourished. HEENT: Pupils are round and equally reacting to light. EOMI. No scleral icterus. No conjunctival pallor. Normocephalic, atraumatic. CARDIOVASCULAR: S1 and S2 present. No murmurs, rubs, or gallops. PULMONARY: Chest is clear to auscultation b/l, no wheezing or crackles. ABDOMEN: Soft, nontender, nondistended, normoactive bowel sounds. No palpable organomegaly. MUSCULOSKELETAL: No joint swelling or deformity. EXTREMITIES: +2 pitting edema, up to midshin on left leg only NEUROLOGICAL: Gross neurological examination did not reveal any focal deficits. SKIN: No rashes. Assessment and Plan #Acute on chronic mixed congestive heart failure (inferior wall hypokinesia and ejection fraction 30- 35%) # Shortness of breath secondary to above -Strict I and O - Fluid Restrict to 2L -Daily Weight - GDMT (BB, SGLT 2, Loop Dieuretic, Mineralcorticoid) - IV Lasix Telemetry Consulted cardiology, appreciate further recommendations -2L NC (Home Oxygen) #Incidental leukopenia Monitor CBC daily #Hypervolemic Hypernatremia (asymptomatic) Monitor CMP daily Chronic Conditions: #Hypertension Continue home meds #Hyperlipidemia Continue home meds #Type 2 diabetes Sliding scale insulin #Asymptomatic bradycardia #A-fib #Ischemic cardiomyopathy #History of CABG Continue home Eliquis -hold metropolol #COPD Continue home meds #Thoracic aortic aneurysm (not surgical candidate) Tight blood pressure control DVT ppx: Eliquis GI ppx: Protonix CODE STATUS: Full code Dispo: Pending clinical course Past Medical History Past Medical History: Atrial Fibrillation, Asthma, Chest Pain / Angina, COPD History of Any Multi-Drug Resistant Organisms: None Reported Past Surgical History: No Surgical Hx Reported Additional Past Surgical History / Comment(s): "open heart surgery" Past Anesthesia/Blood Transfusion Reactions: No Reported Reaction Past Psychological History: No Psychological Hx Reported Smoking Status: Never smoker Past Alcohol Use History: None Reported Past Drug Use History: None Reported - Past Family History Father Family Medical History: No Reported History Medications and Allergies Home Medications Medication Instructions Recorded Confirmed Type Nitroglycerin Sl Tabs [Nitrostat] 0.4 mg SL Q5M PRN 01/16/24 08/31/24 History Atorvastatin [Lipitor] 40 mg PO DAILY #30 tab 05/01/24 08/31/24 Rx Budesonide-Formot 160-4.5 Mcg 2 puff INHALATION RT-BID #1 each 05/20/24 08/31/24 Rx [Symbicort 160-4.5 Mcg Inhaler] Albuterol Inhaler [Ventolin Hfa 1 puff INHALATION RT-QID PRN 06/08/24 08/31/24 History Inhaler] Furosemide [Lasix] 40 mg PO BID #60 tab 07/08/24 08/31/24 Rx Apixaban [Eliquis] 2.5 mg PO BID 08/31/24 08/31/24 History Losartan [Cozaar] 25 mg PO DAILY 08/31/24 08/31/24 History Amiodarone [Cordarone] 100 mg PO DAILY #30 tab 09/02/24 Rx Metoprolol Tartrate [Lopressor] 25 mg PO BID #60 tab 09/02/24 Rx Allergies Allergy/AdvReac Type Severity Reaction Status Date / Time adhesive Allergy Rash/Hives Verified 08/31/24 10:24 Physical Exam Vitals: Vital Signs Temp Pulse Resp BP Pulse Ox 08/31/24 07:35 38 L 23 162/84 95 08/31/24 07:00 42 L 24 164/80 95 08/31/24 05:27 44 L 22 142/74 98 08/31/24 04:38 48 L 24 114/63 98 08/31/24 03:35 53 L 22 111/66 96 08/31/24 02:55 46 L 22 128/49 95 08/31/24 02:22 25 H 08/31/24 02:14 97.7 F 47 L 25 H 144/61 95 Intake and Output 08/30/24 08/31/24 08/31/24 22:59 06:59 14:59 Other: Weight 79.832 kg Results CBC & Chem 7: 09/02/24 05:50 09/02/24 05:50 Labs: Abnormal Lab Results - Last 24 Hours (Table) 08/31/24 08/31/24 08/31/24 Range/Units 02:00 02:00 02:00 WBC 4.29 L (4.50-10.00) 10*3/uL RBC 4.01 L (4.10-5.20) 10*6/uL Hgb 10.8 L (12.0-15.0) g/dL Hct 34.6 L (37.2-46.3) % MCH 26.9 L (27.0-32.0) pg MCHC 31.2 L (32.0-37.0) g/dL Plt Count 112 L (140-440) 10*3/uL MPV 12.4 H (9.5-12.2) fL PT 14.4 H (10.0-12.5) sec INR 1.4 H (<1.2) D-Dimer 2.25 H (<0.60) mg/L FEU Sodium 146 H (137-145) mmol/L Chloride 113 H (98-107) mmol/L Carbon Dioxide 21 L (22-30) mmol/L BUN 18 H (7-17) mg/dL Glucose 115 H (74-99) mg/dL Total Bilirubin 2.2 H (0.2-1.3) mg/dL Assessment and Plan Assessment: Attestation Attestation/ 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
[2024-08-31] MEDS: APIXABAN 5 MG TAB PO SCH (20:11)
[2024-08-31] MEDS: SYMBICORT 160-4.5 MCG INHALER INHALATION SCH (21:16)
[2024-09-01 06:53] LABS: Basophils # (A) 0.04 10*3/uL (0.00-0.10); Basophils % (A) 1.1 %; Eosinophils # (A) 0.10 10*3/uL (0.04-0.35); Eosinophils % (A) 2.7 %; HCT 34.2 % (37.2-46.3); HGB 10.4 g/dL (12.0-15.0); Lymphocytes # (A) 1.06 10*3/uL (0.90-5.00); Lymphocytes % (A) 28.5 %; MCH 26.7 pg (27.0-32.0); MCHC 30.4 g/dL (32.0-37.0); MCV 87.9 fL (80.0-97.0); Monocytes # (A) 0.42 10*3/uL (0.20-1.00); Monocytes % (A) 11.3 %; Neutrophils # (A) 2.10 10*3/uL (1.80-7.70); Neutrophils % (A) 56.4 %; Platelet Count 121 10*3/uL (140-440); RBC 3.89 10*6/uL (4.10-5.20); RDW 16.6 % (11.5-14.5); WBC 3.72 10*3/uL (4.50-10.00)
[2024-09-01 07:10] LABS: ALT 14 U/L (4-34); AST 20 U/L (14-36); African American GFR (CKD) >90 (>60 ml/min/1.73 sqM); Albumin 3.7 g/dL (3.5-5.0); Alkaline Phosphatase 91 U/L (38-126); Anion Gap 7 mmol/L; Blood Urea Nitrogen 16 mg/dL (7-17); Calcium 9.0 mg/dL (8.4-10.2); Carbon Dioxide 27 mmol/L (22-30); Chloride 109 mmol/L (98-107); Glucose 98 mg/dL (74-99); Non-African American GFR(CKD) 79 (>60 ml/min/1.73 sqM); Potassium 3.8 mmol/L (3.5-5.1); Sodium 143 mmol/L (137-145); Total Protein 5.9 g/dL (6.3-8.2)
[2024-09-01] MEDS: AMIODARONE 100 MG TAB PO SCH (11:43)
[2024-09-01] MEDS: METOPROLOL TARTRATE 25 MG TAB PO SCH (11:43)
[2024-09-01] MEDS: FUROSEMIDE 10 MG/ML 4 ML VIAL IV SCH (11:43)
--- NOTE | 2024-09-01 12:33 | P.CRDCN ---
History of Present Illness History of present illness: HISTORY OF PRESENT ILLNESS: This is a 69-year-old female with a past medical history significant for coronary artery disease status post CABG, congestive heart failure, atrial fibrillation, hyperlipidemia, and aortic aneurysm. Patient follows in the office with Dr. Grover. We have been asked to see the patient in consultation for congestive heart failure. Patient examined at the bedside. Patient came into the hospital due to "feeling achy all over". She reports that her heart was "acting up". She states she has been feeling like this since Wednesday. Denies fever or chills. She reports occasional SOB. She takes inhalers which does help the SOB at home. Denies chest pain or pressure. She is feeling better this morning. DIAGNOSTICS: - EKG reveals sinus bradycardia with IVCD heart rate 46. - Chest xray bilateral airspace opacities may represent pulmonary edema and/or atypical infection. Cardiomegaly. Small bilateral pleural effusions. -CT chest: Generalized anasarca, small to moderate right and left pleural effusions, moderate to severe cardiomegaly, pulmonary hypertension, diffuse septal lines. Constellation of findings suggest CHF with early interstitial pulmonary edema. Large fusiform and saccular aneurysms of the mid and lower descending thoracic aorta. Right upper paratracheal mass measuring 4.8 cm unchanged. - Laboratory data: WBC 3.72. Hemoglobin 10.4. Platelet count 121. D-dimer 2.25. Sodium 143. Potassium 3.8. BUN 16. Creatinine 0.77. Troponin 0.012. proBNP 7020. - Current home cardiac medications include metoprolol tartrate 50 mg 3 times daily, losartan 25 mg daily, Lasix 40 mg twice a day, Lipitor 40 mg daily, Eliquis 2.5 mg twice a day, amiodarone 200 mg daily. - Limited echocardiogram obtained in April 2024 revealed ejection fraction 30 to 35%, atypical septal motion and inferior wall hypokinesia, with moderate MR - Cardiac catheterization history: Unknown REVIEW OF SYSTEMS: At the time of my exam: CONSTITUTIONAL: Denies fever or chills. HEENT: Denies blurred vision, vision changes, or eye pain. Denies hemoptysis CARDIOVASCULAR: Denies chest pain. Denies orthopnea. Denies PND. Denies palpitations RESPIRATORY: Denies shortness of breath. GASTROINTESTINAL: Denies abdominal pain. Denies nausea or vomiting. HEMATOLOGIC: Denies bleeding disorders. GENITOURINARY: Denies any blood in urine. SKIN: Denies pruitis. Denies rash. PHYSICAL EXAM: VITAL SIGNS: Reviewed. GENERAL: Well-developed in no acute distress. HEENT: Head is normocephalic. Pupils are equal, round. Sclerae anicteric. Mucous membranes of the mouth are moist. Neck supple. No JVD or thyromegaly LUNGS: Respirations even and unlabored. Lungs essentially clear to auscultation bilaterally. HEART: Regular rate and rhythm. S1 and S2 heard. ABDOMEN: Soft. Nondistended. Nontender. EXTREMITIES: Normal range of motion. No clubbing or cyanosis. Peripheral pulses intact. Trace left lower extremity edema NEUROLOGIC: Awake and alert. Oriented x 3. ASSESSMENT: Generalized aches and pains Acute on chronic heart failure with reduced EF 30 to 35% Chronic hypoxic respiratory failure on home oxygen PRN Moderate mitral regurgitation Coronary artery disease with previous CABG Paroxysmal atrial fibrillation Known history of thoracic aortic aneurysm, previously evaluated and determined to be inoperable per Dr. Grover's office note Hypertension Hyperlipidemia Diabetes PLAN: Decrease amiodarone to 100 mg daily Resume metoprolol tartrate at a lower dose of 25 mg twice a day. Patient was previously taking 50 mg 3 times daily and was decreased to twice a day dosing in the office in July Begin IV Lasix 40 mg every 12 hours for 24 hours Daily weights, accurate intake and output, monitoring of kidney function Anticipate discharge home tomorrow if patient remains stable Nurse practitioner note has been reviewed by physician. Signing provider agrees with the documented findings, assessment, and plan of care documented by EXTRUDER OPERATOR HORIZONTAL as a scribe. Past Medical History Past Medical History: Atrial Fibrillation, Asthma, Chest Pain / Angina, COPD History of Any Multi-Drug Resistant Organisms: None Reported Past Surgical History: No Surgical Hx Reported Additional Past Surgical History / Comment(s): "open heart surgery" Past Anesthesia/Blood Transfusion Reactions: No Reported Reaction Past Psychological History: No Psychological Hx Reported Smoking Status: Never smoker Past Alcohol Use History: None Reported Past Drug Use History: None Reported - Past Family History Father Family Medical History: No Reported History Medications and Allergies Home Medications Medication Instructions Recorded Confirmed Type Nitroglycerin Sl Tabs [Nitrostat] 0.4 mg SL Q5M PRN 01/16/24 08/31/24 History Amiodarone [Cordarone] 200 mg PO DAILY #30 tab 05/01/24 08/31/24 Rx Atorvastatin [Lipitor] 40 mg PO DAILY #30 tab 05/01/24 08/31/24 Rx Budesonide-Formot 160-4.5 Mcg 2 puff INHALATION RT-BID #1 each 05/20/24 08/31/24 Rx [Symbicort 160-4.5 Mcg Inhaler] Metoprolol Tartrate [Lopressor] 50 mg PO TID #90 tab 05/30/24 08/31/24 Rx Albuterol Inhaler [Ventolin Hfa 1 puff INHALATION RT-QID PRN 06/08/24 08/31/24 History Inhaler] Furosemide [Lasix] 40 mg PO BID #60 tab 07/08/24 08/31/24 Rx Apixaban [Eliquis] 2.5 mg PO BID 08/31/24 08/31/24 History Losartan [Cozaar] 25 mg PO DAILY 08/31/24 08/31/24 History Allergies Allergy/AdvReac Type Severity Reaction Status Date / Time adhesive Allergy Rash/Hives Verified 08/31/24 10:24 Physical Exam Vitals: Vital Signs Temp Pulse Resp BP Pulse Ox 09/01/24 08:03 97 09/01/24 04:00 98.1 F 44 L 18 124/62 96 08/31/24 22:56 97.9 F 43 L 18 119/51 96 08/31/24 19:38 97.7 F 50 L 20 132/56 95 08/31/24 16:00 97.9 F 43 L 22 113/49 96 08/31/24 11:21 42 L 20 163/76 95 08/31/24 09:57 97.6 F 42 L 20 134/56 93 L Intake and Output 08/31/24 09/01/24 09/01/24 22:59 06:59 14:59 Intake Total 420 Output Total 400 150 Balance 20 -150 Intake: Oral 420 Output: Urine 400 150 Other: Voiding Method External Catheter External Catheter Weight 80 kg Results 09/01/24 06:05 09/01/24 06:05 Cardiac Enzymes 09/01/24 Range/Units 06:05 AST 20 (14-36) U/L CBC 09/01/24 Range/Units 06:05 WBC 3.72 L (4.50-10.00) 10*3/uL RBC 3.89 L (4.10-5.20) 10*6/uL Hgb 10.4 L (12.0-15.0) g/dL Hct 34.2 L (37.2-46.3) % Plt Count 121 L (140-440) 10*3/uL Comprehensive Metabolic Panel 09/01/24 Range/Units 06:05 Sodium 143 (137-145) mmol/L Potassium 3.8 (3.5-5.1) mmol/L Chloride 109 H (98-107) mmol/L Carbon Dioxide 27 (22-30) mmol/L BUN 16 (7-17) mg/dL Creatinine 0.77 (0.52-1.04) mg/dL Glucose 98 (74-99) mg/dL Calcium 9.0 (8.4-10.2) mg/dL AST 20 (14-36) U/L ALT 14 (4-34) U/L Alkaline Phosphatase 91 (38-126) U/L Total Protein 5.9 L (6.3-8.2) g/dL Albumin 3.7 (3.5-5.0) g/dL Current Medications Generic Name Dose Route Start Last Admin Trade Name Freq PRN Reason Stop Dose Admin Albuterol Sulfate 2.5 mg 08/31/24 12:18 Albuterol Nebulized 2.5 Mg/3 Ml INHALATION RT-QID PRN Shortness Of Breath Or Wheezing Amiodarone HCl 200 mg 08/31/24 12:30 08/31/24 12:22 Amiodarone 200 Mg Tab PO Not Given DAILY KAREL Apixaban 5 mg 08/31/24 21:00 09/01/24 07:43 Apixaban 5 Mg Tab PO 5 mg BID KAREL Administration Protocol Atorvastatin Calcium 40 mg 08/31/24 12:30 09/01/24 07:43 Atorvastatin 40 Mg Tab PO 40 mg DAILY KAREL Administration Budesonide/Formoterol Fumarate 2 puff 08/31/24 20:00 09/01/24 08:03 Symbicort 160-4.5 Mcg Inhaler INHALATION 2 puff RT-BID KAREL Administration Losartan Potassium 25 mg 08/31/24 12:30 09/01/24 07:43 Losartan 25 Mg Tab PO 25 mg DAILY KAREL Administration Sodium Chloride 10 ml 08/31/24 09:00 09/01/24 07:43 Sodium Chloride 0.9% Flush 10 Ml Syringe IV 10 ml BID KAREL Administration Intake and Output 08/31/24 09/01/24 09/01/24 22:59 06:59 14:59 Intake Total 420 Output Total 400 150 Balance 20 -150 Intake: Oral 420 Output: Urine 400 150 Other: Voiding Method External Catheter External Catheter Weight 80 kg 09/01/24 06:05 09/01/24 06:05
--- NOTE | 2024-09-01 14:27 | P.PN ---
Subjective Progress Note Date: 09/01/24 Chief Complaint: shortness of breath History of present illness;a 69-year-old female with a past medical history significant for coronary artery disease with previous CABG, ischemic cardiomyopathy, diabetes, hyperlipidemia, systolic congestive heart failure(EF 30 to 35%), and abdominal aortic aneurysm, thoracic aortic aneurysm presents with complaints of a dizzy spell that usually resolves with rest, however it persisted despite sitting in recliner. She also experienced heart palpitations during the episode. In addition to the dizzy spell, she experienced worsening orthopnea for 2 days, patient has had similar episodes in the past. She was recently discharged in june where she was managed with IV Lasix for similar complaint. She reports she was non-compliant with low sodium diet, eating food s he knows she is not supposed to eat. She is on 2L NC at home, but does not need all the time. She can walk around the grocery store or run errands without oxygen normally. She has pedal edema on the left leg however she states she only gets edema on one side. In the ER she received an EKG which revealed a right bundle branch block which is stable from previous EKGs. She also received a CTA which revealed bilateral pleural effusions and thoracic aortic aneurysms consistent with previous scans stable at 4.8 cm. Patient denies fever, chills, recent illness. At time of encounter, diszziness has resolved, she is no longer short of breath. 09/01/2024: Pt seen at bedside, shes feeling well, denies shortness of breath, dizziness, weakness. She has been able to get up and walk. Oxygen demands remain at baseline Patient was admitted for further managment of acute on chronic combined CHF exa cerbation with consults to cardiology, REVIEW OF SYSTEMS: As stated above in HPI. The rest of the 14-point review of systems is negative. PHYSICAL EXAMINATION: GENERAL: The patient is alert and oriented x3, not in any acute distress. Well developed, well nourished. HEENT: Pupils are round and equally reacting to light. EOMI. No scleral icterus. No conjunctival pallor. Normocephalic, atraumatic. CARDIOVASCULAR: S1 and S2 present. No murmurs, rubs, or gallops. PULMONARY: Chest is clear to auscultation b/l, no wheezing or crackles. ABDOMEN: Soft, nontender, nondistended, normoactive bowel sounds. No palpable organomegaly. MUSCULOSKELETAL: No joint swelling or deformity. EXTREMITIES: +2 pitting edema, up to midshin on left leg only NEUROLOGICAL: Gross neurological examination did not reveal any focal deficits. SKIN: No rashes. Assessment and Plan #Acute on chronic mixed congestive heart failure (inferior wall hypokinesia and ejection fraction 30- 35%) # Shortness of breath secondary to above -Strict I and O - Fluid Restrict to 2L -Daily Weight - GDMT (BB, SGLT 2, Loop Dieuretic, Mineralcorticoid) - Change IV to PO lasix Telemetry Consulted cardiology, appreciate further recommendations -2L NC (Home Oxygen) -Decrease Amiodirone, #Incidental leukopenia Monitor CBC daily #Hypervolemic Hypernatremia (asymptomatic) Monitor CMP daily Chronic Conditions: #Hypertension Continue home meds #Hyperlipidemia Continue home meds #Type 2 diabetes Sliding scale insulin #Asymptomatic bradycardia #A-fib #Ischemic cardiomyopathy #History of CABG Continue home Eliquis -hold metropolol #COPD Continue home meds #Thoracic aortic aneurysm (not surgical candidate) Tight blood pressure control DVT ppx: Eliquis GI ppx: Protonix CODE STATUS: Full code Dispo: Pending clinical course Objective - Vital Signs Vital signs: Vital Signs Temp 97.9 F 09/01/24 08:00 Pulse 54 L 09/01/24 12:00 Resp 18 09/01/24 12:00 BP 116/55 09/01/24 12:00 Pulse Ox 94 L 09/01/24 12:00 FiO2 Intake & Output 08/31/24 09/01/24 09/01/24 18:59 06:59 18:59 Intake Total 600 240 Output Total 1600 150 650 Balance -1000 -150 -410 Weight 79.832 kg 80 kg Intake: Oral 600 240 Output: Urine 1600 150 650 Other: Voiding Method Toilet External Catheter External Catheter External Catheter - Labs CBC & Chem 7: 09/02/24 05:50 09/02/24 05:50 Labs: Abnormal Lab Results - Last 24 Hours (Table) 09/01/24 09/01/24 Range/Units 06:05 06:05 WBC 3.72 L (4.50-10.00) 10*3/uL RBC 3.89 L (4.10-5.20) 10*6/uL Hgb 10.4 L (12.0-15.0) g/dL Hct 34.2 L (37.2-46.3) % MCH 26.7 L (27.0-32.0) pg MCHC 30.4 L (32.0-37.0) g/dL Plt Count 121 L (140-440) 10*3/uL MPV 12.6 H (9.5-12.2) fL Chloride 109 H (98-107) mmol/L Total Bilirubin 2.0 H (0.2-1.3) mg/dL Total Protein 5.9 L (6.3-8.2) g/dL Assessment and Plan Assessment: Attestation Attestation/ Rural Sociologist Note: Attestation to Progress Note, Participation (I saw and evaluated the patient with the Resident, and I reviewed and discussed the patient with the Resident and agree with the Resident's findings and plans as documented above., management reviewed and discussed), I agree with findings & plan, Provider Signature (JEANETH AGUIAR, [facility] [place] Time with Patient: Greater than 30
[2024-09-01 16:44] VITALS: RESP 16
[2024-09-02 04:51] VITALS: TEMP 97.8
[2024-09-02 07:30] LABS: Basophils # (A) 0.03 10*3/uL (0.00-0.10); Basophils % (A) 0.8 %; Eosinophils # (A) 0.16 10*3/uL (0.04-0.35); Eosinophils % (A) 4.4 %; HCT 34.7 % (37.2-46.3); HGB 10.5 g/dL (12.0-15.0); Immature Platelet Fraction 7.3 % (1.1-6.1); Lymphocytes # (A) 1.11 10*3/uL (0.90-5.00); Lymphocytes % (A) 30.7 %; MCH 26.3 pg (27.0-32.0); MCHC 30.3 g/dL (32.0-37.0); MCV 86.8 fL (80.0-97.0); Monocytes # (A) 0.48 10*3/uL (0.20-1.00); Monocytes % (A) 13.3 %; Neutrophils # (A) 1.83 10*3/uL (1.80-7.70); Neutrophils % (A) 50.5 %; Platelet Count 107 10*3/uL (140-440); RBC 4.00 10*6/uL (4.10-5.20); RDW 16.5 % (11.5-14.5); WBC 3.62 10*3/uL (4.50-10.00)
[2024-09-02 07:33] LABS: African American GFR (CKD) 82 (>60 ml/min/1.73 sqM); Anion Gap 6 mmol/L; Blood Urea Nitrogen 16 mg/dL (7-17); Calcium 8.8 mg/dL (8.4-10.2); Carbon Dioxide 33 mmol/L (22-30); Chloride 106 mmol/L (98-107); Glucose 92 mg/dL (74-99); Non-African American GFR(CKD) 71 (>60 ml/min/1.73 sqM); Potassium 4.2 mmol/L (3.5-5.1); Sodium 145 mmol/L (137-145)
[2024-09-02 08:50] VITALS: BP 124/55; PULSE 58
--- NOTE | 2024-09-02 11:45 | P.DS ---
Providers Date of admission: 08/31/24 07:49 Attending physician: Sandie Zhu Consults: 08/31/24 07:05 Consult Physician Routine Consulting Provider: Sukh Owusu Consult Reason/Comments: CHF exacerbation Do you want consulting provider notified?: Yes Primary care physician: Lorenza Christopher Hospital Course: Discharge Diagnosis: Acute on chronic heart failure with reduced EF 30 to 35% Chronic proximal respiratory failure on home oxygen as needed Moderate mitral regurgitation Generalized aches and pain CAD with previous CABG Proximal atrial fibrillation Known history of thoracic aortic aneurysm Hypertension Lipidemia Diabetes Hospital Course: History of present illness;a 69-year-old female with a past medical history significant for coronary artery disease with previous CABG, ischemic car diomyopathy, diabetes, hyperlipidemia, systolic congestive heart failure(EF 30 to 35%), and abdominal aortic aneurysm, thoracic aortic aneurysm presents with complaints of a dizzy spell that usually resolves with rest, however it persisted despite sitting in recliner. She also experienced heart palpitations during the episode. In addition to the dizzy spell, she experienced worsening orthopnea for 2 days, patient has had similar episodes in the past. She was recently discharged in june where she was managed with IV Lasix for similar complaint. She reports she was non-compliant with low sodium diet, eating food she knows she is not supposed to eat. She is on 2L NC at home, but does not need all the time. She can walk around the grocery store or run errands without oxygen normally. She has pedal edema on the left leg however she states she only gets edema on one side. In the ER she received an EKG which revealed a right bundle branch block which is stable from previous EKGs. She also received a CTA which revealed bilateral pleural effusions and thoracic aortic aneurysms consistent with previous scans stable at 4.8 cm. Patient denies fever, chills, recent illness. At time of encounter, diszziness has resolved, she is no longer short of breath. Patient was admitted for further managment of acute on chronic combined CHF exacerbation with consults to cardiology. While admitted to the hospital the patient was seen by cardiology. Her home medications were resumed with some modifications including decreasing the dose of amiodarone as well as decreasing the frequency and dosage of her metoprolol. It was decided not to get a repeat echo as the patient recently had 1 from April 2024 which showed an EF of 30 to 35% with atypical septal motion and inferior wall hypokinesia with moderate MR. On the day of discharge patient was feeling back to her normal self, had no complaints of dizziness and did not admit to any chest pain or shortness of breath. Patient was cleared by cardiology from a cardiac standpoint. Patient is hemodynamically stable for discharge to home and advised to follow-up with her PCP and coin machine assembler in 1 week. Home medication changes were made including decreasing amiodarone dose to 100 mg daily and metoprolol to 25 mg twice daily, patient was made aware of the changes. Pt seen and examined at bedside: No significant overnight events, patient currently no complaints concerns at this time. Vital signs reveiwed and stable: GENERAL: Well-developed in no acute distress. HEENT: Head is normocephalic. Pupils are equal, round. Sclerae anicteric. Mucous membranes of the mouth are moist. Neck supple. No JVD or thyromegaly LUNGS: Respirations even and unlabored. Lungs essentially clear to auscultation bilaterally. HEART: Regular rate and rhythm. S1 and S2 heard. ABDOMEN: Soft. Nondistended. Nontender. EXTREMITIES: Normal range of motion. No clubbing or cyanosis. Peripheral pulses intact. Trace left lower extremity edema NEUROLOGIC: Awake and alert. Oriented x 3. A total of greater than 30 minutes were spent preparing this complex discarge summary. Patient was discharged on 09/02/2024. Plan - Discharge Summary Discharge Rx Participant: Yes New Discharge Prescriptions: New Amiodarone [Cordarone] 100 mg PO DAILY #30 tab Metoprolol Tartrate [Lopressor] 25 mg PO BID #60 tab Continue Nitroglycerin Sl Tabs [Nitrostat] 0.4 mg SL Q5M PRN PRN Reason: Chest Pain Atorvastatin [Lipitor] 40 mg PO DAILY #30 tab Albuterol Inhaler [Ventolin Hfa Inhaler] 1 puff INHALATION RT-QID PRN PRN Reason: Shortness Of Breath Or Wheezing Furosemide [Lasix] 40 mg PO BID #60 tab Losartan [Cozaar] 25 mg PO DAILY Budesonide-Formot 160-4.5 Mcg [Symbicort 160-4.5 Mcg Inhaler] 2 puff INHALATION RT-BID #1 each Apixaban [Eliquis] 2.5 mg PO BID Discontinued Amiodarone [Cordarone] 200 mg PO DAILY #30 tab Metoprolol Tartrate [Lopressor] 50 mg PO TID #90 tab Discharge Medication List Nitroglycerin Sl Tabs [Nitrostat] 0.4 mg SL Q5M PRN 01/16/24 [History] Atorvastatin [Lipitor] 40 mg PO DAILY #30 tab 05/01/24 [Rx] Budesonide-Formot 160-4.5 Mcg [Symbicort 160-4.5 Mcg Inhaler] 2 puff INHALATION RT-BID #1 each 05/20/24 [Rx] Albuterol Inhaler [Ventolin Hfa Inhaler] 1 puff INHALATION RT-QID PRN 06/08/24 [History] Furosemide [Lasix] 40 mg PO BID #60 tab 07/08/24 [Rx] Apixaban [Eliquis] 2.5 mg PO BID 08/31/24 [History] Losartan [Cozaar] 25 mg PO DAILY 08/31/24 [History] Amiodarone [Cordarone] 100 mg PO DAILY #30 tab 09/02/24 [Rx] Metoprolol Tartrate [Lopressor] 25 mg PO BID #60 tab 09/02/24 [Rx] Follow up Appointment(s)/Referral(s): Lorenza Christopher MD [Primary Care Provider] - 1-2 days Martinez Grover MD [STAFF PHYSICIAN] - 1 Week Discharge/Stand Alone Forms: Nicholas CANNON Pamphlet, Who Do I Call? Discharge Disposition: HOME SELF-CARE
--- NOTE | 2024-09-02 13:05 | P.PN ---
Subjective HISTORY OF PRESENT ILLNESS: This is a 69-year-old female with a past medical history significant for coronary artery disease status post CABG, congestive heart failure, atrial fibrillation, hyperlipidemia, and aortic aneurysm. Patient follows in the office with Dr. Grover. We have been asked to see the patient in consultation for congestive heart failure. Patient examined at the bedside. Patient came into the hospital due to "feeling achy all over". She reports that her heart was "acting up". She states she has been feeling like this since Wednesday. Denies fever or chills. She reports occasional SOB. She takes inhalers which does help the SOB at home. Denies chest pain or pressure. She is feeling better this morning. DIAGNOSTICS: - EKG reveals sinus bradycardia with IVCD heart rate 46. - Chest xray bilateral airspace opacities may represent pulmonary edema and/or atypical infection. Cardiomegaly. Small bilateral pleural effusions. -CT chest: Generalized anasarca, small to moderate right and left pleural effusions, moderate to severe cardiomegaly, pulmonary hypertension, diffuse septal lines. Constellation of findings suggest CHF with early interstitial pulmonary edema. Large fusiform and saccular aneurysms of the mid and lower descending thoracic aorta. Right upper paratracheal mass measuring 4.8 cm unchanged. - Laboratory data: WBC 3.72. Hemoglobin 10.4. Platelet count 121. D-dimer 2.25. Sodium 143. Potassium 3.8. BUN 16. Creatinine 0.77. Troponin 0.012. proBNP 7020. - Current home cardiac medications include metoprolol tartrate 50 mg 3 times daily, losartan 25 mg daily, Lasix 40 mg twice a day, Lipitor 40 mg daily, Eliquis 2.5 mg twice a day, amiodarone 200 mg daily. - Limited echocardiogram obtained in April 2024 revealed ejection fraction 30 to 35%, atypical septal motion and inferior wall hypokinesia, with moderate MR - Cardiac catheterization history: Unknown 09/02/2024 Patient examined this morning at the bedside. Patient currently denies chest pain or pressure. She denies shortness of breath. Vital signs are stable. Telemetry reveals sinus bradycardia. PHYSICAL EXAM: VITAL SIGNS: Reviewed. GENERAL: Well-developed in no acute distress. HEENT: Head is normocephalic. Pupils are equal, round. Sclerae anicteric. Mucous membranes of the mouth are moist. Neck supple. No JVD or thyromegaly LUNGS: Respirations even and unlabored. Lungs essentially clear to auscultation bilaterally. HEART: Regular rate and rhythm. S1 and S2 heard. ABDOMEN: Soft. Nondistended. Nontender. EXTREMITIES: Normal range of motion. No clubbing or cyanosis. Peripheral pulses intact. Trace left lower extremity edema NEUROLOGIC: Awake and alert. Oriented x 3. ASSESSMENT: Generalized aches and pains Acute on chronic heart failure with reduced EF 30 to 35% Chronic hypoxic respiratory failure on home oxygen PRN Moderate mitral regurgitation Coronary artery disease with previous CABG Paroxysmal atrial fibrillation Known history of thoracic aortic aneurysm, previously evaluated and determined to be inoperable per Dr. Grover's office note Hypertension Hyperlipidemia Diabetes PLAN: Continue decreased amiodarone dose of 100 mg daily Continue decreased dose of metoprolol to tartrate 25 mg twice a day Discontinue IV Lasix. Begin oral Lasix Patient is stable for discharge home today from a cardiac standpoint She has to follow-up postdischarge in the office with Dr. Grover Nurse practitioner note has been reviewed by physician. Signing provider agrees with the documented findings, assessment, and plan of care documented by MEAT LUGGER as a scribe. Objective - Vital Signs Vital signs: Vital Signs Temp 97.8 F 09/02/24 08:00 Pulse 58 L 09/02/24 08:00 Resp 16 09/02/24 08:00 BP 124/55 09/02/24 08:00 Pulse Ox 95 09/02/24 08:33 FiO2 Intake & Output 09/01/24 09/02/24 09/02/24 18:59 06:59 18:59 Intake Total 600 240 Output Total 1100 Balance -500 240 Weight 78.3 kg Intake: Oral 600 240 Output: Urine 1100 Other: Voiding Method External Catheter External Catheter - Labs CBC & Chem 7: 09/02/24 05:50 09/02/24 05:50 Labs: Abnormal Lab Results - Last 24 Hours (Table) 09/02/24 09/02/24 Range/Units 05:50 05:50 WBC 3.62 L (4.50-10.00) 10*3/uL RBC 4.00 L (4.10-5.20) 10*6/uL Hgb 10.5 L (12.0-15.0) g/dL Hct 34.7 L (37.2-46.3) % MCH 26.3 L (27.0-32.0) pg MCHC 30.3 L (32.0-37.0) g/dL Plt Count 107 L (140-440) 10*3/uL MPV 12.7 H (9.5-12.2) fL Immature Plt Fraction 7.3 H (1.1-6.1) % Carbon Dioxide 33 H (22-30) mmol/L
[2024-09-02] MEDS ORDERED: FUROSEMIDE 40 MG TAB PO SCH (16:00)
== END 2024-09-02 12:21 | disposition home or self-care (01) | DRG 291 ==
LOC: EC 02:12 → 3SCARD 07:49
PROVIDERS: ADMIT Internal Medicine; ATTEND Internal Medicine
DX: I11.0 Hypertensive heart disease with heart failure (principal); I50.43 Acute on chronic combined systolic (congestive) and diastolic (congestive) heart failure; E87.0 Hyperosmolality and hypernatremia; I27.20 Pulmonary hypertension, unspecified; J96.11 Chronic respiratory failure with hypoxia; E11.9 Type 2 diabetes mellitus without complications; D72.819 Decreased white blood cell count, unspecified; J44.89 Other specified chronic obstructive pulmonary disease; I34.0 Nonrheumatic mitral (valve) insufficiency; I71.23 Aneurysm of the descending thoracic aorta, without rupture; I48.0 Paroxysmal atrial fibrillation; I25.10 Atherosclerotic heart disease of native coronary artery without angina pectoris; I25.5 Ischemic cardiomyopathy; I45.10 Unspecified right bundle-branch block; E78.5 Hyperlipidemia, unspecified; Z99.81 Dependence on supplemental oxygen; Z79.51 Long term (current) use of inhaled steroids; Z79.01 Long term (current) use of anticoagulants; Z95.1 Presence of aortocoronary bypass graft; Z79.899 Other long term (current) drug therapy; Z91.119 Patient's noncompliance with dietary regimen due to unspecified reason
CPT/HCPCS: 36415; 71046; 71275; 80048; 80053; 83605; 83735; 83880; 84484; 85025; 85379; 85610; 85730; 87636; 93005; 94640; 94760; 96374; 99285